=== PATIENT | male | born 1960 | race Hispanic/Latino ===

== ENCOUNTER 2019-01-19 21:49 | Emergency (ER) | payer OTHER ==
--- NOTE | 2019-01-19 23:41 | EDPHYS ---
Physician Documentation [facility] Name: Geovanny Kenney Age: 58 yrs Sex: Male : 1960 Arrival Date: 01/19/2019 Time: 21:50 Bed 15 Private MD: ED Physician Michael Retana HPI: 01/19 23:33 This 58 yrs old Male presents to ER via Ambulatory with complaints of Needle drake Broke off In buttcheek. 23:33 possible needle in buttock. Onset: The symptoms/episode began/occurred just prior to drake arrival. Severity of symptoms: At their worst the symptoms were mild in the emergency department the symptoms are unchanged. The patient has not experienced similar symptoms in the past. Historical: - Allergies: 22:05 No Known Allergies; ak1 - Home Meds: 22:05 metformin 1,000 mg Oral tab 2 times per day [Active]; lisinopril 2.5 mg Oral tab ak1 [Active]; - PMHx: 22:05 Hypertension; Diabetes - NIDDM; ak1 - Immunization history:: Adult Immunizations unknown. - Social history:: Smoking status: Patient/guardian denies using tobacco. - Ebola Screening: : No symptoms or risks identified at this time. - Family history:: not pertinent. ROS: 23:33 Constitutional: Negative for fever, chills, and weight loss, Eyes: Negative for injury, drake pain, redness, and discharge, ENT: Negative for injury, pain, and discharge, Neck: Negative for injury, pain, and swelling, Cardiovascular: Negative for chest pain, palpitations, and edema, Respiratory: Negative for shortness of breath, cough, wheezing, and pleuritic chest pain, Abdomen/GI: Negative for abdominal pain, nausea, vomiting, diarrhea, and constipation, Back: Negative for injury and pain, : Negative for injury, bleeding, discharge, and swelling, Skin: Negative for injury, rash, and discoloration, Neuro: Negative for headache, weakness, numbness, tingling, and seizure, Psych: Negative for depression, anxiety, suicide ideation, homicidal ideation, and hallucinations, Allergy/Immunology: Negative for hives, rash, and allergies, Endocrine: Negative for neck swelling, polydipsia, polyuria, polyphagia, and marked weight changes, Hematologic/Lymphatic: Negative for swollen nodes, abnormal bleeding, and unusual bruising. 23:33 MS/extremity: Positive for pain, of the buttocks. Exam: 23:33 Constitutional: This is a well developed, well nourished patient who is awake, alert, drake and in no acute distress. Head/Face: Normocephalic, atraumatic. Eyes: Pupils equal round and reactive to light, extra-ocular motions intact. Lids and lashes normal. Conjunctiva and sclera are non-icteric and not injected. Cornea within normal limits. Periorbital areas with no swelling, redness, or edema. ENT: Nares patent. No nasal discharge, no septal abnormalities noted. Tympanic membranes are normal and external auditory canals are clear. Oropharynx with no redness, swelling, or masses, exudates, or evidence of obstruction, uvula midline. Mucous membranes moist. Neck: Trachea midline, no thyromegaly or masses palpated, and no cervical lymphadenopathy. Supple, full range of motion without nuchal rigidity, or vertebral point tenderness. No Meningismus. Chest/axilla: Normal chest wall appearance and motion. Nontender with no deformity. No lesions are appreciated. Cardiovascular: Regular rate and rhythm with a normal S1 and S2. No gallops, murmurs, or rubs. Normal PMI, no JVD. No pulse deficits. Respiratory: Lungs have equal breath sounds bilaterally, clear to auscultation and percussion. No rales, rhonchi or wheezes noted. No increased work of breathing, no retractions or nasal flaring. Abdomen/GI: Soft, non-tender, with normal bowel sounds. No distension or tympany. No guarding or rebound. No evidence of tenderness throughout. Back: No spinal tenderness. No costovertebral tenderness. Full range of motion. Male : Normal genitalia with no discharge or lesions. Skin: Warm, dry with normal turgor. Normal color with no rashes, no lesions, and no evidence of cellulitis. MS/ Extremity: Pulses equal, no cyanosis. Neurovascular intact. Full, normal range of motion. Neuro: Awake and alert, GCS 15, oriented to person, place, time, and situation. Cranial nerves II-XII grossly intact. Motor strength 5/5 in all extremities. Sensory grossly intact. Cerebellar exam normal. Normal gait. Psych: Awake, alert, with orientation to person, place and time. Behavior, mood, and affect are within normal limits. Vital Signs: 22:03 BP 156 / 83; Pulse 79; Resp 18; Temp 98; Pulse Ox 97% on R/A; Weight 92.99 kg (R); ak1 Height 5 ft. 6 in. (167.64 cm) (R); Pain 2/10; 23:46 BP 162 / 81; Pulse 72; Resp 18; Temp 98.1; Pulse Ox 98% on R/A; Pain 1/10; ak1 22:03 Body Mass Index 33.09 (92.99 kg, 167.64 cm) ak1 MDM: 22:42 Patient medically screened. [facility] 23:33 Data reviewed: vital signs, nurses notes, radiologic studies, plain films. [facility] 01/19 21:59 Order name: Pelvis XRAY snw Administered Medications: No medications were administered Disposition: 01/19/19 23:38 Discharged to Home. Impression: Puncture wound without foreign body of left buttock. - Condition is Stable. - Discharge Instructions: Puncture Wound, Puncture Wound, [id number]. - Medication Reconciliation Form, Thank You Letter, Antibiotic Education, Prescription Opioid Use form. - Follow up: Private Physician; When: 2 - 3 days; Reason: Recheck today's complaints, Continuance of care, Re-evaluation by your physician. Follow up: Richy Fernandez MD; When: 1 - 2 days; Reason: Recheck today's complaints, Continuance of care, Re-evaluation by your physician. - Problem is new. - Symptoms have improved. Signatures: Dispatcher [employer] EDMichael Krishnamurthy MD MD cha Krenek, Amber, RN RN ak1 Corrections: (The following items were deleted from the chart) 23:47 23:38 01/19/2019 23:38 Discharged to Home. Impression: Puncture wound without foreign ak1 body of left buttock. Condition is Stable. Forms are Medication Reconciliation Form, Thank You Letter, Antibiotic Education, Prescription Opioid Use. Follow up: Private Physician; When: 2 - 3 days; Reason: Recheck today's complaints, Continuance of care, Re-evaluation by your physician. Follow up: Ricyh Fernandez; When: 1 - 2 days; Reason: Recheck today's complaints, Continuance of care, Re-evaluation by your physician. Problem is new. Symptoms have improved. drake
--- NOTE | 2019-01-19 23:41 | ER ---
Nurse's Notes [facility] Name: Geovanny Kenney Age: 58 yrs Sex: Male : 1960 Arrival Date: 01/19/2019 Time: 21:50 Bed 15 Private MD: Diagnosis: Puncture wound without foreign body of left buttock Presentation: 01/19 22:03 Presenting complaint: Patient states: at 0815 IM to left hip/buttock area given ak1 testosterone. pt stated he took a "pain pill" earlier. Transition of care: patient was not received from another setting of care. Onset of symptoms was January 19, 2019. Risk Assessment: Do you want to hurt yourself or someone else? Patient reports no desire to harm self or others. Initial Sepsis Screen: Does the patient meet any 2 criteria? No. Patient's initial sepsis screen is negative. Does the patient have a suspected source of infection? No. Patient's initial sepsis screen is negative. Care prior to arrival: None. 22:03 Method Of Arrival: Ambulatory ak1 22:03 Acuity: VERA 4 ak1 Triage Assessment: 22:05 General: Appears in no apparent distress. Behavior is calm, cooperative. ak1 Historical: - Allergies: 22:05 No Known Allergies; ak1 - Home Meds: 22:05 metformin 1,000 mg Oral tab 2 times per day [Active]; lisinopril 2.5 mg Oral tab ak1 [Active]; - PMHx: 22:05 Hypertension; Diabetes - NIDDM; ak1 - Immunization history:: Adult Immunizations unknown. - Social history:: Smoking status: Patient/guardian denies using tobacco. - Ebola Screening: : No symptoms or risks identified at this time. - Family history:: not pertinent. Screenin:24 Abuse screen: Denies threats or abuse. Denies injuries from another. Nutritional lp1 screening: No deficits noted. Tuberculosis screening: No symptoms or risk factors identified. Fall Risk None identified. Assessment: 22:21 General: Appears in no apparent distress. Behavior is appropriate for age. Pain: lp1 Complains of pain in left gluteus satya. Neuro: Level of Consciousness is awake, alert, obeys commands. Cardiovascular: Patient's skin is warm and dry. Respiratory: Respiratory effort is even, unlabored. GI: No signs and/or symptoms were reported involving the gastrointestinal system. : No signs and/or symptoms were reported regarding the genitourinary system. EENT: No signs and/or symptoms were reported regarding the EENT system. Derm: Skin is pink, warm \\T\\ dry. Musculoskeletal: No deficits noted. 23:46 Reassessment: Patient appears in no apparent distress at this time. No changes from ak1 previously documented assessment. Patient and/or family updated on plan of care and expected duration. Pain level reassessed. Patient is alert, oriented x 3, equal unlabored respirations, skin warm/dry/pink. Vital Signs: 22:03 BP 156 / 83; Pulse 79; Resp 18; Temp 98; Pulse Ox 97% on R/A; Weight 92.99 kg (R); ak1 Height 5 ft. 6 in. (167.64 cm) (R); Pain 2/10; 23:46 BP 162 / 81; Pulse 72; Resp 18; Temp 98.1; Pulse Ox 98% on R/A; Pain 1/10; ak1 22:03 Body Mass Index 33.09 (92.99 kg, 167.64 cm) ak1 ED Course: 21:50 Patient arrived in ED. ds1 22:03 Arm band placed on Patient placed in an exam room, on a stretcher, Patient notified of ak1 wait time. 22:05 Triage completed. ak1 22:21 Toya Dobbins, RN is Primary Nurse. lp1 22:24 Patient has correct armband on for positive identification. Placed in gown. lp1 22:36 Pelvis XRAY In Process Unspecified. EDMA 22:42 Michael Retana MD is Attending Physician. [facility] 23:36 Richy Fernandez MD is Referral Physician. [facility] 23:46 No provider procedures requiring assistance completed. Patient did not have IV access ak1 during this emergency room visit. Administered Medications: No medications were administered Outcome: 23:38 Discharge ordered by . [facility] 23:47 Discharged to home ambulatory, with family. ak1 23:47 Condition: stable 23:47 Discharge instructions given to patient, family, Instructed on discharge instructions, follow up and referral plans. Demonstrated understanding of instructions, follow-up care. 23:47 Patient left the ED. ak1 Signatures: Dispatcher [employer] EDMA Michael Retana MD MD cha Sanford, Demi ds1 Toya Dobbins, RN RN lp1 Carmen Steel, RN RN ak1
[2019-01-20 01:28] VITALS: BP 162/81; TEMP 98.1; O2SAT 98
--- NOTE | 2019-01-20 07:27 | RAD REPORT ---
EXAM DESCRIPTION: RAD - Pelvis - 01/19/2019 10:36 pm CLINICAL HISTORY: Pain, possible needle foreign body, BB marker placed at injection site COMPARISON: None. TECHNIQUE: AP imaging of the pelvis was obtained. FINDINGS: Frontal and lateral projections of the pelvis were obtained for possible retained needle. A BB marker was placed the skin surface. The BB marker is identifiable. No foreign body is seen. No suspicious or acute bone or soft tissue finding identified. IMPRESSION: No foreign body.
== END 2019-01-19 23:47 | disposition home or self-care (01) ==
LOC: ER 21:49
DX: S31.823A Puncture wound without foreign body of left buttock, initial encounter (principal); I10 Essential (primary) hypertension; E11.9 Type 2 diabetes mellitus without complications
CPT/HCPCS: 72170; 99283

== ENCOUNTER 2019-06-06 09:39 | Inpatient (IN) | payer OTHER ==
--- OUTSIDE RECORDS SUMMARY | 2019-06-06 09:41 | XMS REPORT ---
:1960 Author Organization [facility] Address [address] [place] [address] Dr. Rabago [address] [place] [id number] Care Team Providers Name Role Phone Unavailable Unavailable Unavailable Problems This patient has no known problems. Allergies, Adverse Reactions, Alerts This patient has no known allergies or adverse reactions. Medications This patient has no known medications.
--- OUTSIDE RECORDS SUMMARY | 2019-06-06 09:44 | XMS REPORT | Summary of Care ---
:1960 Author Organization [facility] - Health Address [address] [place] [address] Care Team Providers Name Role Phone Wilfredo Perdomo Primary Care Provider Encounter Details Date Type Department Care Team Description 06/01/2019 Orders Only [facility] Doctor Unassigned, No [address] [facility] [place] [address] [address] [place] [address] Allergies No Known Allergiesdocumented as of this encounter (statuses as of 06/03/2019) Medications Medication Sig Dispensed Refills Start Date End Date Status amLODIPine 10 mg Take 1 tablet by 90 tablet 1 12/08/2017 Active tabletIndications: mouth daily. Essential hypertension blood sugar diagnostic Use as directed, 300 Strip 1 12/08/2017 Active (ACCU-CHEK GUIDE) strip TID, DX:E11.9 Lancets (ACCU-CHEK Use as directed, 300 Each 1 12/08/2017 Active FASTCLIX) Misc TID, DX:E11.9 hydroCHLOROthiazide 25 Take 1 tablet by 30 tablet 3 01/11/2018 Active mg tablet mouth daily. glyBURIDE 5 mg Take 2 tablets by 360 tablet 3 03/15/2018 Active tabletIndications: Type mouth 2 (two) 2 diabetes mellitus times daily with without complication, meals. without long-term current use of insulin pioglitazone 30 mg Take 1 tablet by 30 tablet 0 08/10/2018 Active tabletIndications: Type mouth daily. 2 diabetes mellitus without complication, without long-term current use of insulin lisinopril 40 mg Take 1 tablet by 90 tablet 3 09/24/2018 Active tabletIndications: mouth daily. Essential hypertension rosuvastatin 20 mg Take 0.5 tablets 90 tablet 1 11/30/2018 Active tabletIndications: by mouth daily. Dyslipidemia syringe-needle,safety,di Use as directed 10 Syringe 2 11/30/2018 Active sp unt 1.5 mL 22 gauge x with testosterone 1 04/28" SyrgIndications: injection once Hypogonadism in male [id number] gabapentin 100 mg Take 1 capsule by 90 capsule 1 11/30/2018 Active capsuleIndications: mouth 3 (three) Neuropathy times daily. METFORMIN ER 500 mg 24 TAKE 2 TABLETS BY 360 tablet 1 03/28/2019 Active hr tabletIndications: MOUTH TWICE DAILY Type 2 diabetes mellitus WITH MEALS without complication, without long-term current use of insulin tamsulosin 0.4 mg 24 hr Take 1 capsule by 30 capsule 6 03/30/2019 Active capsuleIndications: mouth at bedtime. Benign prostatic hyperplasia, unspecified whether lower urinary tract symptoms present dulaglutide (TRULICITY) inject 1.5 mg 12 Syringe 0 06/01/2019 Active 1.5 mg/0.5 mL under the skin PnIjIndications: Type 2 weekly. diabetes mellitus without complication, without long-term current use of insulin Hospital, Clinic, or Other Ordered Dose Route Frequency Start Date End Date Status Facility Administered Medication testosterone cypionate 200 mg IM [id number] 05/05/2019 06/16/2019 Active (DEPO-TESTOSTERONE) injection 200 mgIndications: Male hypogonadism, Testicular hypofunction documented as of this encounter (statuses as of 06/03/2019) Active Problems Problem Noted Date KAYLA (obstructive sleep apnea) 03/15/2018 Type 2 diabetes mellitus without complication, without long-term current 12/08 use of insulin Dyslipidemia 12/08/2017 Essential hypertension 12/08/2017 Hypogonadism in male 12/08/2017 documented as of this encounter (statuses as of 06/03/2019) Immunizations Name Administration Dates Next Due HEPLISAV HEP B, ADULT 2 DOSE, IM 01/24/2019 Influenza Virus Vaccine 01/24/2019 documented as of this encounter Social History Tobacco Use Types Packs/Day Years Used Date Former Smoker 0.25 30 Quit: 11/26/1987 Smokeless Tobacco: Never Used Comments: Smokes Cigars on occasion Alcohol Use Drinks/Week oz/Week Comments No Sex Assigned at Date Recorded Not on file Job Start Date Occupation Industry Not on file Not on file Not on file Travel History Travel Start Travel End No recent travel history available. documented as of this encounter Last Filed Vital Signs Not on filedocumented in this encounter Plan of Treatment Date Type Specialty Care Team Description 06/17/2019 Office Visit Urology Jamal Gaxiola MD [address] [place] [address]. [place] [id number] 08/31/2019 Office Visit Endocrinology Diabetes & Kevin Mayes MD Metabolism [address] [place] [address] [phone] Health Maintenance Due Date Last Done Comments HEPATITIS C (HCV) SCREEN 1960 PNEUMOCOCCAL 0-64 YEARS COMBINED 10/08/1967 SERIES (1 of 1 - PPSV23) EYE EXAM 10/08/1971 URINE MICROALBUMIN 10/08/1971 DTaP,Tdap,and Td Vaccines (1 - 1972 Tdap) COLONOSCOPY 10/08/2011 Zoster Recombinant Vaccine 10/08/2011 (SHINGRIX) (1 of 2) CREATININE (SERUM) 12/04/2018 12/04/2017 LDL-C 12/22/2018 12/22/2017, 12/08/2017 FOOT EXAM 03/15/2019 03/15/2018, 03/15/2018, 12/08/2017, Additional history exists HgA1C 06/02/2019 11/30/2018, 03/15/2018, 12/08/2017 INFLUENZA VACCINE Completed 01/24/2019 documented as of this encounter Procedures Procedure Name Priority Date/Time Associated Diagnosis Comments AGREEMENTS AUTHORIZATIONS Routine 06/01/2019 12:01 AM AND [facility] CONSULTANT ASSIGNMENTS (FORM 2001) documented in this encounter Results Not on filedocumented in this encounter Insurance Payer Benefit Plan / Group Subscriber ID Effective Dates Phone Address Type AETNA AETNA HMO [id number] 2018-Present HMO documented as of this encounter
[2019-06-06 10:04] LABS: Basophils % 0.5 % (0-1.3); Hematocrit 25.2 % (39.6-49.0); Lymphocytes % 18.4 % (15.3-44.8); MPV 8.4 fL (7.6-11.3); RBC Red Blood Cell Count 3.23 M/uL (4.33-5.43)
[2019-06-06 10:12] LABS: Protime INR 1.04
[2019-06-06 10:31] LABS: Albumin 3.7 g/dL (3.4-5.0); Bilirubin Direct 0.1 mg/dL (0-0.2); Bilirubin Total 0.5 mg/dL (0.2-1.0); Potassium 4.6 mmol/L (3.5-5.1); Protein, Total 6.8 g/dL (6.4-8.2); Troponin (Emerg Dept Use Only) 0.03 ng/mL (0.0-0.045)
--- NOTE | 2019-06-06 10:36 | EDPHYS ---
Physician Documentation [facility] Name: Geovanny Kenney Age: 58 yrs Sex: Male : 1960 Arrival Date: 06/06/2019 Time: 09:41 Bed 4 Private MD: ED Physician Michael Retana HPI: 06/06 10:16 This 58 yrs old Male presents to ER via Wheelchair with complaints of High drake Blood Pressure, Palpitations. 10:16 The patient has elevated blood pressure and discovered this at home. Onset: The drake symptoms/episode began/occurred 2 day(s) ago. Modifying factors: The symptoms are aggravated by activity, The symptoms are alleviated by remaining still. Associated signs and symptoms: The patient has no apparent associated signs or symptoms. Severity of symptoms: At its worst the blood pressure was moderate, in the emergency department the blood pressure is unchanged. The patient has not experienced similar symptoms in the past. Historical: - Allergies: 09:52 No Known Allergies; sg - Home Meds: 09:52 lisinopril 2.5 mg Oral tab [Active]; metformin 1,000 mg Oral tab 2 times per day sg [Active]; Glyburide Oral [Active]; 09:56 Trulicity subcutaneous subcutaneous [Active]; sg - PMHx: 09:52 Diabetes - NIDDM; Hypertension; High Cholesterol; sg - PSHx: 09:52 eye sx; sg - Immunization history:: Adult Immunizations up to date. - Coronavirus screen:: The patient has NOT traveled to [place], [place], or [place] in the past 14 days. The patient has NOT had contact with known/suspected case of Coronavirus?. - Social history:: Smoking status: Patient denies any tobacco usage or history of. - Ebola Screening: : Patient negative for fever greater than or equal to 101.5 degrees Fahrenheit, and additional compatible Ebola Virus Disease symptoms Patient denies exposure to infectious person Patient denies travel to an Ebola-affected area in the 21 days before illness onset No symptoms or risks identified at this time. ROS: 10:16 Constitutional: Negative for fever, chills, and weight loss, Eyes: Negative for injury, drake pain, redness, and discharge, ENT: Negative for injury, pain, and discharge, Neck: Negative for injury, pain, and swelling, Cardiovascular: Negative for chest pain, palpitations, and edema, Respiratory: Negative for shortness of breath, cough, wheezing, and pleuritic chest pain, Abdomen/GI: Negative for abdominal pain, nausea, vomiting, diarrhea, and constipation, Back: Negative for injury and pain, : Negative for injury, bleeding, discharge, and swelling, MS/Extremity: Negative for injury and deformity, Skin: Negative for injury, rash, and discoloration, Psych: Negative for depression, anxiety, suicide ideation, homicidal ideation, and hallucinations, Allergy/Immunology: Negative for hives, rash, and allergies, Endocrine: Negative for neck swelling, polydipsia, polyuria, polyphagia, and marked weight changes, Hematologic/Lymphatic: Negative for swollen nodes, abnormal bleeding, and unusual bruising. 10:16 Neuro: Positive for dizziness, weakness. Exam: 10:16 Constitutional: This is a well developed, well nourished patient who is awake, alert, drake and in no acute distress. Head/Face: Normocephalic, atraumatic. Eyes: Pupils equal round and reactive to light, extra-ocular motions intact. Lids and lashes normal. Conjunctiva and sclera are non-icteric and not injected. Cornea within normal limits. Periorbital areas with no swelling, redness, or edema. ENT: Nares patent. No nasal discharge, no septal abnormalities noted. Tympanic membranes are normal and external auditory canals are clear. Oropharynx with no redness, swelling, or masses, exudates, or evidence of obstruction, uvula midline. Mucous membranes moist. Neck: Trachea midline, no thyromegaly or masses palpated, and no cervical lymphadenopathy. Supple, full range of motion without nuchal rigidity, or vertebral point tenderness. No Meningismus. Chest/axilla: Normal chest wall appearance and motion. Nontender with no deformity. No lesions are appreciated. Cardiovascular: Regular rate and rhythm with a normal S1 and S2. No gallops, murmurs, or rubs. Normal PMI, no JVD. No pulse deficits. Respiratory: Lungs have equal breath sounds bilaterally, clear to auscultation and percussion. No rales, rhonchi or wheezes noted. No increased work of breathing, no retractions or nasal flaring. Abdomen/GI: Soft, non-tender, with normal bowel sounds. No distension or tympany. No guarding or rebound. No evidence of tenderness throughout. Back: No spinal tenderness. No costovertebral tenderness. Full range of motion. Male : Normal genitalia with no discharge or lesions. MS/ Extremity: Pulses equal, no cyanosis. Neurovascular intact. Full, normal range of motion. Neuro: Awake and alert, GCS 15, oriented to person, place, time, and situation. Cranial nerves II-XII grossly intact. Motor strength 5/5 in all extremities. Sensory grossly intact. Cerebellar exam normal. Normal gait. Psych: Awake, alert, with orientation to person, place and time. Behavior, mood, and affect are within normal limits. 10:16 Skin: Appearance: Color: pale, Moisture: normal moisture, petechiae, not noted, ecchymosis, not noted. 10:30 Abdomen/GI: Inspection: abdomen appears normal, Bowel sounds: normal, Palpation: [facility] abdomen is soft and non-tender, in all quadrants, Rectal exam: is unremarkable, rectal tone normal, Stool: guaiac positive, Liver: no appreciated palpable abnormalities, Hernia: not appreciated. Vital Signs: 09:52 BP 194 / 77; Pulse 93; Resp 18; Temp 97.9; Pulse Ox 100% on R/A; Weight 92.99 kg; sg Height 5 ft. 6 in. (167.64 cm); 10:04 BP 160 / 62; Pulse 81; Resp 16 S; Pulse Ox 98% on R/A; Pain 0/10; jl7 11:14 BP 175 / 86; Pulse 80; Resp 19 S; Pulse Ox 98% on R/A; jl7 09:52 Body Mass Index 33.09 (92.99 kg, 167.64 cm) MDM: 09:47 Patient medically screened. [facility] 10:19 Data reviewed: vital signs, nurses notes, lab test result(s), EKG, radiologic studies, [facility] plain films. 06/06 09:51 Order name: Basic Metabolic Panel ms 06/06 09:51 Order name: CBC with Diff ms 06/06 09:51 Order name: LFT's ms 06/06 09:51 Order name: Magnesium ms 06/06 09:51 Order name: NT PRO-BNP ms 06/06 09:51 Order name: PT-INR ms 06/06 09:51 Order name: Troponin (emerg Dept Use Only) ms 06/06 10:06 Order name: CBC with Automated Diff; Complete Time: 10:14 EDMS 06/06 10:14 Order name: Protime (+INR); Complete Time: 10:14 EDMS 06/06 10:15 Order name: Type And Screen drake 06/06 10:15 Order name: Lipase drake 06/06 10:31 Order name: Occult Blood--Ancillary bd 06/06 10:31 Order name: Basic Metabolic Panel; Complete Time: 10:36 EDMS 06/06 10:31 Order name: Liver (Hepatic) Function; Complete Time: 10:36 EDMS 06/06 09:51 Order name: XRAY Chest (1 view) ms 06/06 09:51 Order name: EKG; Complete Time: 09:52 ms 06/06 10:31 Order name: Troponin (Emerg Dept Use Only); Complete Time: 10:36 EDMS 06/06 10:32 Order name: NT PRO-BNP; Complete Time: 10:36 EDMS 06/06 10:32 Order name: Magnesium; Complete Time: 10:36 EDMS 06/06 10:55 Order name: Lipase EDMS 06/06 10:59 Order name: RAD EDMS 06/06 11:33 Order name: Type and Screen EDMS 06/06 11:47 Order name: ABO/RH no charge EDMS 06/06 13:12 Order name: Occult Blood--Ancillary EDMS 06/06 13:25 Order name: Thyroid Stimulating Hormone EDMS 06/06 09:51 Order name: Cardiac monitoring; Complete Time: 09:54 ms 06/06 09:51 Order name: EKG - Nurse/Tech; Complete Time: 09:54 ms 06/06 09:51 Order name: IV Saline Lock; Complete Time: 09:54 ms 06/06 09:51 Order name: Labs collected and sent; Complete Time: 09:54 ms 06/06 09:51 Order name: O2 Per Protocol; Complete Time: 09:54 ms 06/06 09:51 Order name: O2 Sat Monitoring; Complete Time: 09:54 ms 06/06 11:01 Order name: Labs - recollect needed: recollect abo rh, no charge; Complete Time: 11:18 bd 06/06 13:01 Order name: NPO; Complete Time: 13:10 sg Administered Medications: 10:37 Drug: Pepcid 20 mg Route: IVP; Site: right forearm; jl7 11:13 Follow up: Response: No adverse reaction jl7 10:37 Drug: ProTONIX 40 mg Route: IVP; Site: right forearm; jl7 11:13 Follow up: Response: No adverse reaction 13:01 Drug: ProTONIX 8 mg/hr Route: IV; Rate: 25 ml/hr; Site: right femoral; sg 13:10 Follow up: IV Status: Infusion continued upon admission 7 13:23 CANCELLED (wrong order): Insulin Regular Human 10 units IVP once 7 13:23 Drug: Insulin Regular Human 10 units {Co-Signature: em (Nito Ballesteros RN).} Route: Sub-Q; 7 Site: left upper abdomen; 13:34 Follow up: Response: administered prior to transfer to the floor jl7 Disposition: 06/06/19 10:35 Hospitalization ordered by Sapphire Luu for Inpatient Admission. Preliminary diagnosis are Gastrointestinal hemorrhage, unspecified, Anemia, unspecified, Chest pain, unspecified, Weakness, Unspecified kidney failure, Type 2 diabetes mellitus. - Bed requested for Telemetry/MedSurg (Inpatient). - Status is Inpatient Admission. jl7 - Condition is Fair. - Problem is new. - Symptoms have improved. Signatures: Dispatcher [employer] EDMS Kelly White Steven, Michael Williamson RN, MD MD cha Villarreal, Maria ms Leal, Jahala, SHELIA BASS jl7 Nito dorantes Corrections: (The following items were deleted from the chart) 10:36 10:35 Hospitalization Ordered by Zohreh Alford MD for Inpatient Admission. Preliminary drake diagnosis is Gastrointestinal hemorrhage, unspecified; Anemia, unspecified; Chest pain, unspecified; Weakness. Bed requested for Telemetry/MedSurg (Inpatient). Status is Inpatient Admission. Condition is Fair. Problem is new. Symptoms have improved. drake 10:40 10:36 06/06/2019 10:35 Hospitalization Ordered by Zohreh Alford MD for Inpatient drake Admission. Preliminary diagnosis is Gastrointestinal hemorrhage, unspecified; Anemia, unspecified; Chest pain, unspecified; Weakness; Unspecified kidney failure. Bed requested for Telemetry/MedSurg (Inpatient). Status is Inpatient Admission. Condition is Fair. Problem is new. Symptoms have improved. drake 10:41 10:40 06/06/2019 10:35 Hospitalization Ordered by Zohreh Alford MD for Inpatient drake Admission. Preliminary diagnosis is Gastrointestinal hemorrhage, unspecified; Anemia, unspecified; Chest pain, unspecified; Weakness; Unspecified kidney failure; Type 2 diabetes mellitus. Bed requested for Telemetry/MedSurg (Inpatient). Status is Inpatient Admission. Condition is Fair. Problem is new. Symptoms have improved. drake 12:56 10:41 06/06/2019 10:35 Hospitalization Ordered by Sapphire Luu MD for Inpatient Admission. bd Preliminary diagnosis is Gastrointestinal hemorrhage, unspecified; Anemia, unspecified; Chest pain, unspecified; Weakness; Unspecified kidney failure; Type 2 diabetes mellitus. Bed requested for Telemetry/MedSurg (Inpatient). Status is Inpatient Admission. Condition is Fair. Problem is new. Symptoms have improved. drake 13:23 13:22 Insulin Regular Human 10 units IVP once ordered. jl7 jl7 13:27 12:56 06/06/2019 10:35 Hospitalization Ordered by Sapphire Luu MD for Inpatient Admission. jl7 Preliminary diagnosis is Gastrointestinal hemorrhage, unspecified; Anemia, unspecified; Chest pain, unspecified; Weakness; Unspecified kidney failure; Type 2 diabetes mellitus. Bed requested for Telemetry/MedSurg (Inpatient). Status is Inpatient Admission. Condition is Fair. Problem is new. Symptoms have improved. bd
--- NOTE | 2019-06-06 10:36 | ER ---
Nurse's Notes [facility] Name: Geovanny Kenney Age: 58 yrs Sex: Male : 1960 Arrival Date: 06/06/2019 Time: 09:41 Bed 4 Private MD: Diagnosis: Gastrointestinal hemorrhage, unspecified;Anemia, unspecified;Chest pain, unspecified;Weakness;Unspecified kidney failure;Type 2 diabetes mellitus Presentation: 06/06 09:48 Presenting complaint: Patient states: One week ago, started having shortness of breath sg with weakness. Chest pain began this morning, Left sided with the feeling that heart is racing. Transition of care: patient was not received from another setting of care. Onset of symptoms was June 06, 2019. Risk Assessment: Do you want to hurt yourself or someone else? Patient reports no desire to harm self or others. Initial Sepsis Screen: Does the patient meet any 2 criteria? No. Patient's initial sepsis screen is negative. Does the patient have a suspected source of infection? No. Patient's initial sepsis screen is negative. Care prior to arrival: None. 09:48 Method Of Arrival: Wheelchair sg 09:48 Acuity: VERA 3 sg Historical: - Allergies: 09:52 No Known Allergies; sg - Home Meds: 09:52 lisinopril 2.5 mg Oral tab [Active]; metformin 1,000 mg Oral tab 2 times per day sg [Active]; Glyburide Oral [Active]; 09:56 Trulicity subcutaneous subcutaneous [Active]; sg - PMHx: 09:52 Diabetes - NIDDM; Hypertension; High Cholesterol; sg - PSHx: 09:52 eye sx; sg - Immunization history:: Adult Immunizations up to date. - Coronavirus screen:: The patient has NOT traveled to [place], [place], or [place] in the past 14 days. The patient has NOT had contact with known/suspected case of Coronavirus?. - Social history:: Smoking status: Patient denies any tobacco usage or history of. - Ebola Screening: : Patient negative for fever greater than or equal to 101.5 degrees Fahrenheit, and additional compatible Ebola Virus Disease symptoms Patient denies exposure to infectious person Patient denies travel to an Ebola-affected area in the 21 days before illness onset No symptoms or risks identified at this time. Screenin:49 Abuse screen: Denies threats or abuse. Denies injuries from another. Nutritional jl7 screening: No deficits noted. Tuberculosis screening: No symptoms or risk factors identified. Fall Risk IV access (20 points). Total Lemus Fall Scale indicates No Risk (0-24 pts). Assessment: 09:49 General: Appears in no apparent distress. uncomfortable, Behavior is calm, cooperative, jl7 appropriate for age. Pain: Denies pain. Pain does not radiate. Pain began gradually. Neuro: Level of Consciousness is awake, alert, obeys commands, Oriented to person, place, time, situation. Cardiovascular: Reports palpitations, shortness of breath, Denies chest pain, Heart tones S1 S2 present Patient's skin is warm and dry. Chest pain is denied. Respiratory: Reports shortness of breath at rest Airway is patent Respiratory effort is even, unlabored, Respiratory pattern is regular, symmetrical, Breath sounds are clear bilaterally. GI: No signs and/or symptoms were reported involving the gastrointestinal system. : No signs and/or symptoms were reported regarding the genitourinary system. EENT: No signs and/or symptoms were reported regarding the EENT system. Derm: Skin is pink, warm \T\ dry. Musculoskeletal: No signs and/or symptoms reported regarding the musculoskeletal system. 11:00 Reassessment: Patient appears in no apparent distress at this time. No changes from jl7 previously documented assessment. Patient and/or family updated on plan of care and expected duration. Pain level reassessed. Patient is alert, oriented x 3, equal unlabored respirations, skin warm/dry/pink. 13:02 Reassessment: Patient appears in no apparent distress at this time. pt requesting sg water, pt ordered NPO by , pt updated stated understanding, [facility]. Vital Signs: 09:52 BP 194 / 77; Pulse 93; Resp 18; Temp 97.9; Pulse Ox 100% on R/A; Weight 92.99 kg; sg Height 5 ft. 6 in. (167.64 cm); 10:04 BP 160 / 62; Pulse 81; Resp 16 S; Pulse Ox 98% on R/A; Pain 0/10; jl7 11:14 BP 175 / 86; Pulse 80; Resp 19 S; Pulse Ox 98% on R/A; jl7 09:52 Body Mass Index 33.09 (92.99 kg, 167.64 cm) ED Course: 09:41 Patient arrived in ED. rg4 09:47 Michael Retana MD is Attending Physician. drake 09:48 Initial lab(s) drawn, by md, sent to lab. Inserted saline lock: 20 gauge in right ms forearm, using aseptic technique. Blood collected. 09:49 Triage completed. sg 09:49 Brock Ramos, RN is Primary Nurse. jl7 09:49 Arm band placed on. sg 09:49 Patient has correct armband on for positive identification. Placed in gown. Bed in low jl7 position. Call light in reach. Side rails up X2. patient monitor on. Pulse ox on. NIBP on. 09:49 Patient maintains SpO2 saturation greater than 95% on room air. jl7 09:51 EKG done, by sound engineering technician. reviewed by Michael Retana MD. at1 10:12 X-ray completed. Portable x-ray completed in exam room. Patient tolerated procedure mh1 well. 10:25 PT-INR Sent. jl7 10:25 Troponin (emerg Dept Use Only) Sent. jl7 10:26 NT PRO-BNP Sent. jl7 10:26 Magnesium Sent. jl7 10:26 LFT's Sent. jl7 10:26 CBC with Diff Sent. jl7 10:26 Basic Metabolic Panel Sent. jl7 10:32 Mitch Pacheco DO is Hospitalizing Provider. drake 10:34 Zohreh Alford MD is Hospitalizing Provider. drake 10:41 Sapphire Luu MD is Hospitalizing Provider. drake 11:37 Lipase Sent. jl7 11:37 Type And Screen Sent. jl7 11:37 XRAY Chest (1 view) Sent. jl7 11:37 Occult Blood--Ancillary Sent. jl7 13:26 No provider procedures requiring assistance completed. Patient admitted, IV remains in jl7 place. intact, No redness/swelling at site. Administered Medications: 10:37 Drug: Pepcid 20 mg Route: IVP; Site: right forearm; jl7 11:13 Follow up: Response: No adverse reaction jl7 10:37 Drug: ProTONIX 40 mg Route: IVP; Site: right forearm; jl7 11:13 Follow up: Response: No adverse reaction jl7 13:01 Drug: ProTONIX 8 mg/hr Route: IV; Rate: 25 ml/hr; Site: right femoral; sg 13:10 Follow up: IV Status: Infusion continued upon admission jl7 13:23 CANCELLED (wrong order): Insulin Regular Human 10 units IVP once jl7 13:23 Drug: Insulin Regular Human 10 units {Co-Signature: em (Nito Ballesteros RN).} Route: Sub-Q; jl7 Site: left upper abdomen; 13:34 Follow up: Response: administered prior to transfer to the floor jl7 Outcome: 10:35 Decision to Hospitalize by Provider. drake 13:26 Admitted to Tele accompanied by tech, via wheelchair, room 403, with chart, Report jl7 called to SHELIA Smith 13:26 Condition: stable 13:26 Discharge instructions given to patient. 13:26 Instructed on the need for admit, Demonstrated understanding of instructions. 13:27 Patient left the ED. jl7 Signatures: Boaz Gunderson RN RN Michael Garcias MD MD cha Harvey, Martha 1 Breanna Win ms, Amanda, general merchandise manager EKG Tat1 Olga Jones rg4 Brock Ramos RN RN jl7 Ntio dorantes
[2019-06-06] MEDS ORDERED: FAMOTIDINE 20 MG/2 ML VIAL IV ONE (10:41)
[2019-06-06] MEDS ORDERED: PANTOPRAZOLE 40 MG INJ ONE (10:41)
--- NOTE | 2019-06-06 10:56 | RAD REPORT ---
EXAM DESCRIPTION: Thomas Single View06/06/2019 10:12 am CLINICAL HISTORY: Chest pain COMPARISON: 2017 FINDINGS: The lungs appear clear of acute infiltrate. The heart is normal size IMPRESSION: No acute abnormalities displayed
--- NOTE | 2019-06-06 11:38 | EKG ---
Test Date: 2019-06-06 Test Time: 09:46:59 Cap Machine Operator: BILLY MEASUREMENT RESULTS: Intervals: Rate: 86 KS: 144 QRSD: 78 QT: 340 QTc: 406 [place]: P: 43 KS: 144 QRS: 48 T: 78 INTERPRETIVE STATEMENTS: Normal sinus rhythm Normal ECG Compared to ECG 05/18/2017 15:13:36 No significant changes Electronically Signed On 06-06-19 11:38:09 DIRECTOR OF RETAIL ANALYTICS by Сергей Evangelista
[2019-06-06] MEDS ORDERED: MORPHINE 2 MG/ML SYR IV PRN (12:54)
[2019-06-06] MEDS ORDERED: INSULIN -REGULAR HUMAN 50 UNIT/0.5 ML ML ONE (13:24)
[2019-06-06 13:37] VITALS: BMI 33.0
[2019-06-06] MEDS: HYDRALAZINE HCL 20 MG/ML VIAL IV PRN ×2 (14:02→21:06)
[2019-06-06] MEDS: NA CHLORIDE 0.9% 1,000 ML IV SCH ×2 (14:02→23:46)
[2019-06-06] MEDS: PANTOPRAZOLE INJ 80 MG in NA CHLORIDE 0.9% 250 ML IV SCH ×2 (14:02→23:47)
[2019-06-06] MEDS: INSULIN -REGULAR HUMAN 50 UNIT/0.5 ML ML SQ SCH ×2 (16:03→21:00)
[2019-06-06 16:15] LABS: Urine Appearance CLEAR; Urine Bilirubin NEGATIVE (NEG); Urine Blood NEGATIVE (NEG); Urine Color YELLOW; Urine Glucose 3+ (NEG); Urine Protein 2+ (NEG); Urine Urobilinogen 0.2 mg/dL (0.2-1.0); Urine pH 7.5 (5.0-7.0)
[2019-06-06 16:17] LABS: Urine Microscopic Reflex ORDER UMIC
[2019-06-06 16:32] LABS: Urine Bacteria 20-50 /HPF (NONE SEEN); Urine Culture Reflex Order REFLEXED; Urine Mucus 1+ /HPF (NONE SEEN)
[2019-06-06] MEDS: ALPRAZOLAM 0.25 MG TABLET PO PRN (22:04)
[2019-06-06] MEDS ORDERED: METOPROLOL TARTRATE 5 MG/5 ML INJ IV STA (23:22)
--- NOTE | 2019-06-06 23:28 | CON ---
History Of Present Illness: Mr. Kenney is 58. For 2 weeks, he has been feeling gradual decline, it go t worsen enough that he sought medical attention. Among the numerous things going wrong was chest pa in, also malaise, fatigue, dyspnea on exertion. Since he has been here, his cardiac enzymes are norm al. Laboratory does not show abnormal enzymes or EKG changes, but he has fairly significant anemia, his hemoglobin is 8.2, he is microcytic, and iron levels are low. Iron binding capacity is high. He also has an elevated transferrin. He has never had heart disease before. He has a history of pepti c ulcer disease. He was on medications, no longer on those. He has Naprosyn listed as one of his me dications that he takes routinely. Other medicines are glyburide, Flomax, Crestor, lisinopril, metfo rmin, and Trulicity. He does not smoke, never had myocardial infarction, stroke, heart catheterizati on. Physical Examination: Vital Signs: 5 feet 6 inches, 205 pounds. General: Obese, alert, oriented, pleasant, not in distress. Lungs: Clear. Cardiac: Within normal limits. Extremities: Normal pulses. No cyanosis, clubbing, or edema. Electrocardiogram is normal. Impression: The patient's symptoms are all due to the anemia. I do not think if his hemoglobin drop s anymore, transfusion, based on his symptoms I want to consider doing it now. He clearly needs to stop using Naprosyn, be on proton pump inhibitors. At some point in the future, we could do a stress test, but I do not recommend doing it right now that he has unstable heart disease. ELIZABETH/MODL Voice ID: [id number] Report ID: [id number]
[2019-06-07] MEDS ORDERED: NA CHLORIDE 0.9% 250 ML ONE (01:20)
[2019-06-07] MEDS: HYDRALAZINE HCL 20 MG/ML VIAL IV PRN ×2 (04:56→11:57)
[2019-06-07 05:44] LABS: Albumin 3.1 g/dL (3.4-5.0); Bilirubin Total 0.5 mg/dL (0.2-1.0); Magnesium 1.9 mg/dL (1.8-2.4); Phosphorus 3.2 mg/dL (2.5-4.9); Potassium 4.4 mmol/L (3.5-5.1); Protein, Total 6.1 g/dL (6.4-8.2); Troponin I 0.02 ng/mL (0.0-0.045)
[2019-06-07] MEDS: ACETAMINOPHEN 500 MG TAB PO PRN ×2 (06:39→19:37)
[2019-06-07] MEDS: INSULIN -REGULAR HUMAN 50 UNIT/0.5 ML ML SQ SCH ×4 (07:30→20:25)
[2019-06-07] MEDS ORDERED: HYDRALAZINE HCL 20 MG/ML VIAL IV ONE (07:46)
--- NOTE | 2019-06-07 07:59 | HP ---
Date of Admission: 06/06/2019 Chief Complaint: Elevated blood pressure and palpitation. History Of Present Illness: This patient is a 58-year-old gentleman who presented for elevated blood pressure and palpitation. He has a history of hypertension, type-2 diabetes, hyperlipidemia, and PUD. This patient reported that he underwent EGD and colonoscopy 4-5 years ago and was found to have gastric ulcer. He is not taking antacid at this moment. Patient has been feeling tired and weak for the last week. He noted that his blood pressure has been elevated. His blood pressure is not well controlled. He checked his blood pressure this morning, which was 218/95. He experienced significant palpitation this morning. No chest pain or shortness of breath. Patient complained intermittent mild epigastric pain for the last week. This is associated with some nausea and vomiting. No diarrhea. He did not notice dark stool or black stool. This patient tried to make appointment with his family doctor for palpitation. He could not make appointment today and was directed to the emergency room. In the ED, his blood pressure was high, which is 170/ 85. He did not feel much palpitation. His WBC 11.1 and hemoglobin 8.2. Sodium 139 and potassium 4.6. Creatinine 1.37. Lipase 1115. Guaiac test is positive. He was admitted for anemia and possible GI bleed. Past Medical History: 1. Hypertension. 2. Type-2 diabetes. 3. Hypercholesterolemia. 4. PUD. Allergy: None known allergy. Home Medication: Please see home medication list. Review of Systems: No headache or dizziness. No hearing or vision change. No nasal congestion or sore throat. No cough or shortness of breath. No chest pain. For others please see H and P. Social History: He is not an active smoker. No alcohol use. Physical Examination: General: Patient is awake, alert, oriented x3, in no acute distress. HEENT: PERRLA. EOMI. Atraumatic, normocephalic. Neck: No JVD. Neck is supple. Chest: Clear to auscultation. No respiratory distress. No wheezing. Heart: Normal S1, S2. Regular rhythm and rate. Abdomen: Soft. Mild tenderness in the epigastric region. Bowel sounds present. Extremities: No edema. No cyanosis. Neuro: Patient is awake, alert, oriented x3. Nonfocal. Cranial nerve intact. Psych: No anxiety or depression. Skin: No rashes or eczema. Laboratory Data: WBC 11.1, hemoglobin 8.2, platelets 258. INR 1.04. Sodium 139, potassium 4.6, creatinine 1.39, glucose 325. Liver enzyme within normal range. Lipase 1115. Assessment/plan: This patient is a 58-year-old gentleman who was admitted for palpitation. He was found to have anemia and GI bleed. We started protonix drip, added IV hydralazine for blood pressure. GI was consulted. 1. Anemia. Hemoglobin 8.2, likely due to gastrointestinal bleeding. We will check iron panel in the morning. We will closely monitor hemoglobin. 2. Gastrointestinal bleeding. Patient has a history of peptic ulcer disease. He may have active ulcers. GI was consulted, we started IV Protonix drip. 3. Acute pancreatitis. His lipase 1115. He experienced mild epigastric pain. Patient denied alcohol abuse. We started n.p.o. On IV fluid. On pain medication as needed. 4. Acute renal failure. Creatinine 1.37. This is likely due to nausea and vomiting and possible poor oral intake. I started IV fluids. We will follow up. 5. Uncontrolled hypertension. His blood pressure has been high per patient. I added IV hydralazine as needed. Echo was ordered. Data Entry Manager was consulted for better blood pressure control. 6. Diabetes. We started sliding scale. We will resume home diabetic medication. A1c in the morning. 7. Deep venous thrombosis prophylaxis. Patient contraindicated for heparin or Lovenox use. QT/MODL Voice ID: [id number] KIERAN
--- NOTE | 2019-06-07 08:03 | ECHO ---
HEIGHT: 5 ft 6 in WEIGHT: 205 lb 0 oz DATE OF STUDY: 06/06/[address]: Sapphire Luu MD 2-DIMENSIONAL: YES M.MODE: YES DOPPLER: YES COLOR FLOW: YES TDS: NO PORTABLE: NO DEFINITY: NO BUBBLE STUDY: NO DIAGNOSIS: SHORTNESS OF BREATH CARDIAC HISTORY: CATHERIZATION: NO SURGERY: NO PROSTHETIC VALVE: NO PACEMAKER: NO MEASUREMENTS (cm) DIASTOLIC (NORMALS) SYSTOLIC (NORMALS) IVSd 1.2 (0.6-1.2) LA Diam 4.3 (1.9-4.0) LVEF 57% LVIDd 4.3 (3.5-5.7) LVIDs 3.1 (2.0-3.5) %FS 30% LVPWd 1.5 (0.6-1.2) Ao Diam 2.5 (2.0-3.7) 2 DIMENSIONAL ASSESSMENT: RIGHT ATRIUM: NORMAL LEFT ATRIUM: DILATED RIGHT VENTRICLE: NORMAL LEFT VENTRICLE: NORMAL TRICUSPID VALVE: NORMAL MITRAL VALVE: NORMAL PULMONIC VALVE: NORMAL AORTIC VALVE: NORMAL PERICARDIAL EFFUSION: NONE AORTIC ROOT: NORMAL LEFT VENTRICULAR WALL MOTION: NORMAL DOPPLER/COLOR FLOW: MILD MITRAL REGURGITATION. COMMENTS: NORMAL LEFT VENTRICULAR EJECTION FRACTION. DILATED LEFT ATRIUM. MILD MITRAL REGURGITATION. OTHERWISE NORMAL 2D ECHOCARDIOGRAM WITH DOPPLER. TECHNOLOGIST: Fredo TOBAR
[2019-06-07] MEDS: lisinopriL 20 MG TAB PO SCH ×2 (08:31→09:32)
[2019-06-07] MEDS: PANTOPRAZOLE INJ 80 MG in NA CHLORIDE 0.9% 250 ML IV SCH ×2 (08:31→10:30)
[2019-06-07] MEDS: TAMSULOSIN 0.4 MG SR CAP PO SCH (08:31)
[2019-06-07] MEDS: NA CHLORIDE 0.9% 1,000 ML IV SCH ×2 (08:31→17:02)
[2019-06-07] MEDS ORDERED: METFORMIN ER 500 MG TAB PO SCH (09:00)
[2019-06-07] MEDS: ONDANSETRON 4 MG/2 ML VIAL IV PRN ×2 (09:22→17:02)
[2019-06-07 11:04] LABS: Absolute Lymphocytes (CBC) 1.4 K/uL (0.7-4.9); Basophils % 0.4 % (0-1.3); Hematocrit 30.4 % (39.6-49.0); Lymphocytes % 13.4 % (15.3-44.8); MPV 8.5 fL (7.6-11.3); RBC Red Blood Cell Count 3.84 M/uL (4.33-5.43)
[2019-06-07 11:08] LABS: Protime INR 1.08
[2019-06-07] MEDS ORDERED: NA CHLORIDE 0.9% 1,000 ML ONE (12:10)
[2019-06-07] MEDS ORDERED: LIDOCAINE 1% MPF 30 ML VIAL ONE (12:16)
[2019-06-07] MEDS ORDERED: propofoL 200 MG/20 ML VIAL IV ONE ×2 (12:16)
[2019-06-07] MEDS ORDERED: SODIUM CHLORIDE 0.9% 10ML INJ IV PRN (12:54)
--- NOTE | 2019-06-07 15:42 | P.PN ---
Subjective Date of Service: 06/07/19 Chief Complaint: weakness Subjective: No new changes, Doing well Review of Systems General: Unremarkable Eyes: Unremarkable ENT: Unremarkable Respiratory: Unremarkable Cardiovascular: Unremarkable Gastrointestinal: Abdominal Pain Genitourinary: Unremarkable Musculoskeletal: Unremarkable Neurological: Unremarkable Lymphatics: Unremarkable Physical Examination - Vital Signs Temperature: 97.9 F Blood Pressure: 127/42 Pulse: 93 Respirations: 18 Pulse Ox (%): 97 - Physical Exam General: Alert, In no apparent distress, Oriented x3, Cooperative HEENT: Atraumatic, Normocephalic, PERRLA, Mucous membr. moist/pink Neck: Supple, 2+ carotid pulse no bruit, JVD not distended Respiratory: Clear to auscultation bilaterally, Normal air movement Cardiovascular: No edema, Normal pulses, Regular rate/rhythm, Normal S1 S2, No murmurs Gastrointestinal: Normal bowel sounds, Soft and benign, Non-distended Musculoskeletal: No clubbing, No swelling, No contractures Integumentary: No rashes, No breakdown Neurological: Normal speech, Normal strength at 5/5 x4 extr, Normal tone, Cranial nerves 3-12 intact, Normal reflexes 2+ - Studies Microbiology Data (last 24 hrs): 06/06/19 10:31 Stool Occult Blood - Final Assessment And Plan - Plan Assessment/plan: 1. Anemia. Hemoglobin 8.2->7.4, likely due to gastrointestinal bleeding. He received the 2 units of RBC. Now his hgb is 10.4. 2. Gastrointestinal bleeding. Patient has a history of peptic ulcer disease. GI was consulted and performed EGD. Patient was found to have multiple ulcers w/o active bleeding. Changed IV Protonix gtt to 40 mg b.i.d.. 3. Acute pancreatitis. His lipase 1115. He experienced mild epigastric pain. Patient denied alcohol abuse. We started n.p.o. and IV fluid. On pain medication as needed. Will start clear liquid diet. 4. Acute renal failure. Creatinine 1.37. This is likely due to nausea and vomiting and possible poor oral intake. I started IV fluids. Now creatinine 1. 5. Uncontrolled hypertension. His blood pressure has been high per patient. I added IV hydralazine as needed. Echo demonstrated normal ejection fraction. Editorial Project Manager is on board 6. Diabetes. We started sliding scale. We will resume home diabetic medication. A1c 6.6 7. Deep venous thrombosis prophylaxis. Patient contraindicated for heparin or Lovenox use. He probably can be discharged in AM
[2019-06-07] MEDS: METFORMIN ER 500 MG TAB PO SCH (16:30)
[2019-06-07] MEDS: PANTOPRAZOLE 40 MG INJ IVP SCH (20:25)
[2019-06-07] MEDS: ALPRAZOLAM 0.25 MG TABLET PO PRN (20:33)
[2019-06-07] MEDS ORDERED: ROSUVASTATIN 10 MG TAB PO SCH (21:00)
[2019-06-08] MEDS: NA CHLORIDE 0.9% 1,000 ML IV SCH (02:30)
[2019-06-08 04:25] LABS: Absolute Lymphocytes (CBC) 2.4 K/uL (0.7-4.9); Basophils % 0.3 % (0-1.3); Lymphocytes % 18.9 % (15.3-44.8); MPV 8.5 fL (7.6-11.3); RBC Red Blood Cell Count 3.66 M/uL (4.33-5.43)
[2019-06-08 04:28] LABS: Potassium 4.2 mmol/L (3.5-5.1)
[2019-06-08] MEDS: INSULIN -REGULAR HUMAN 50 UNIT/0.5 ML ML SQ SCH (07:30)
[2019-06-08 08:30] VITALS: TEMP 98.4
[2019-06-08] MEDS: lisinopriL 20 MG TAB PO SCH (08:47)
[2019-06-08] MEDS: METFORMIN ER 500 MG TAB PO SCH (08:47)
[2019-06-08] MEDS: TAMSULOSIN 0.4 MG SR CAP PO SCH (08:48)
[2019-06-08] MEDS: PANTOPRAZOLE 40 MG INJ IVP SCH (08:48)
[2019-06-08 08:58] VITALS: O2SAT 98
[2019-06-08] MEDS: ACETAMINOPHEN 500 MG TAB PO PRN (08:58)
[2019-06-08] MEDS ORDERED: AMLODIPINE 5 MG TAB PO SCH (09:00)
[2019-06-08 10:56] VITALS: BP 140/80
[2019-06-08] MEDS ORDERED: SUCRALFATE 1GM/10ML UCUP FT SCH (11:30)
--- NOTE | 2019-06-09 00:09 | DS ---
Date of Discharge: 06/08/2019 Hospital Course: This patient is a 58-year-old male who presented for elevated blood pressure and palpitations. He has history of hypertension, type 2 diabetes, hyperlipidemia, and PUD. His blood pressure was 218/95 at home. He experienced palpitations. In the ED, his blood pressure was 117/85. His hemoglobin is 8.2. Stool occult test is positive. This patient was admitted for uncontrolled hypertension and gastrointestinal bleeding. Ham Marker was consulted for hypertension. The patient was found to take Naprosyn, which was then discontinued. We started IV Protonix drip. GI was consulted and performed EGD. EGD demonstrated multiple gastric ulcers without active bleeding. The patient received 2 units of RBC and his hemoglobin was elevated to 9.6. No more active bleeding. He did not feel any palpitations. His blood pressure remains high and I added amlodipine. Discussed with GI, who recommended discharge patient. Patient was instructed to follow with GI in 1 month. In the hospital, his echo demonstrated normal ejection fraction. Physical Examination: General: On discharge, patient is awake and alert, in no acute distress. Oriented x3. Vital Signs: Temperature 98.4, pulse is 84. Head: Atraumatic, normocephalic. EOMI. PERRLA. Neck: Supple. No JVD. Chest: Clear to auscultation. No respiratory distress. No wheezing. Heart: Normal S1, S2. Regular rhythm and rate. No murmur. Abdomen: Soft, very minimal tenderness in the epigastric region. Neuro: Patient is awake, alert, and oriented x3. Nonfocal. Extremities: No edema. No cyanosis. Laboratory Data: WBC 12.6, hemoglobin 9.6, platelet 237. Sodium 144, potassium 4.2, creatinine 1.1, lipase 149. Hemoglobin A1c 6.6. Discharge Diagnoses: 1. Anemia. 2. GI bleed. 3. Peptic ulcer disease. 4. Acute pancreatitis. 5. Acute renal failure. 6. Uncontrolled hypertension. 7. Type 2 diabetes. Discharge Medications: 1. Protonix 40 mg b.i.d. 2. Amlodipine 10 mg daily. 3. Carafate 1 g q.i.d. For the rest, please see home medication list. Discharge Instructions: 1. Please follow PCP in 1 week for blood pressure control. 2. Please follow GI in 2-3 weeks. 3. Please call emergency room if having chest pain, shortness of breath, or weakness. Discharge Activity: As tolerated. Discharge Diet: Diabetic diet. I spent at least 30 minutes to discharge patient including home medication prescription, education, physical examination, and discharge summary. QT/MODL Voice ID: [id number] Report ID: [id number] [email or web address]
--- NOTE | 2019-07-18 15:44 | OP ---
Surgeon: Jerry Llamas MD Procedure To Be Performed: Esophagogastroduodenoscopy. Indication For Procedure: Anemia, history of peptic ulcer disease. Plan For Anesthesia: Monitored anesthesia care. Complexity: Average. Technique: After obtaining informed consent from the patient explaining risks and complications whic h include, but are not limited to bleeding, infection, perforation, and anesthesia complication, kyaw ent was placed in left lateral position. Sedation was given. From then on the scope was advanced th rough the mouth and carefully guided up until the 3rd portion of the duodenum. After the completion of examination, scope and equipment were withdrawn and procedure terminated in a safe manner. Findings: Evidence of LA grade B esophagitis in the distal esophagus. In the stomach mild to modera te patchy erythema seen in the body and antrum. Biopsies taken. In the antral pre-pyloric region th ere were 2 crated nonbleeding and clean based gastric ulcers that were visualized. Biopsies were osiel en. Duodenum: The bulb and second and third portion appeared normal. Complications: None. Tolerance To Anesthesia: Excellent. Postoperative Diagnoses: Gastric ulcers, gastritis, esophagitis. Plan: 1.Await pathology results. 2.Follow up in the GI clinic in 2 weeks. 3.Will need EGD in 4 to 6 weeks to ensure healing. 4.Will also need monitoring of CBC. 5.I would also recommend an outpatient colonoscopy. US/MODL Voice ID: [id number] Report ID: [id number]
--- NOTE | 2019-07-18 17:08 | CON ---
Reason For Consultation: Acute anemia, suspected GI bleeding. History Of Presenting Illness: Patient is a 58-year-old gentleman, who has been seen in our clinic i n the past, but is noncompliant to care, came, presented to the ER with elevated blood pressure. He has a history of hypertension, diabetes, dyslipidemia, and history of peptic ulcer disease. Prior hi story of EGD and colonoscopy with a history of peptic ulcer. Said he felt tired and weak. When he p resented to the ER, blood pressure was 218/95, and he was having palpitations, was admitted. Hemoglo bin was found to be 8.2. GI consultation was requested. Guaiac was positive. However, there was no hematemesis, melena, or hematochezia. Past Medical History: As above. Allergies: NO KNOWN DRUG ALLERGIES. Home Medications: Are in the chart. Social History: Denies active toxic habits. Review of Systems: GI/Cardiovascular: As in HPI, otherwise negative. Remainder of 10-point review of systems is negati ve. Physical Examination: Vital Signs: Reviewed. As mentioned above significantly hypertensive, not tachycardic, not tachypne ic. Afebrile. HEENT: Head atraumatic, normocephalic. Pupils equally reactive. Neck: Supple. Chest: Clear to auscultation bilaterally. Abdomen: Soft, nontender, nondistended. Bowel sounds present. Extremities: No pedal edema. PROCESSOR GRAIN: Alert and oriented x3. CVS: S1, S2 plus. Laboratory Data: Reviewed. Hemoglobin as mentioned above, 8.2 and clear. This may be chronic as we ll. Assessment: 58-year-old gentleman with history of peptic ulcer disease with hypertensive urgency and anemia. No evidence of active GI bleed, but possible may have a slow chronic blood loss. Plan: Continue current management to control blood pressure. Start IV Protonix, anemia may be multi factorial, blood-loss related or chronic disease. We will go ahead and schedule him for an upper end oscopy. The risks and complications of the procedure which include but not limited to bleeding, infe ction, perforation, anesthesia complications were discussed. He understands and agrees. US/MODL Voice ID: [id number] Report ID: [id number]
== END 2019-06-08 11:12 | disposition home or self-care (01) | DRG 811 ==
LOC: ER 09:39 → ERHOLD 12:13 → 4TH 13:23
PROVIDERS: ADMIT Internal Medicine; ATTEND Internal Medicine
PROC: 0DB68ZX Excision of Stomach, Via Natural or Artificial Opening Endoscopic, Diagnostic (ICD-10-PCS; principal; 2019-06-07 12:00)
DX: D50.0 Iron deficiency anemia secondary to blood loss (chronic) (principal); K85.90 Acute pancreatitis without necrosis or infection, unspecified; K29.71 Gastritis, unspecified, with bleeding; N17.9 Acute kidney failure, unspecified; I10 Essential (primary) hypertension; E11.9 Type 2 diabetes mellitus without complications; E78.5 Hyperlipidemia, unspecified; K20.8 Other esophagitis; K25.9 Gastric ulcer, unspecified as acute or chronic, without hemorrhage or perforation
CPT/HCPCS: 36415; 71045; 80048; 80053; 80061; 80076; 81003; 81015; 82272; 82947; 83036; 83540; 83690; 83735; 83880; 84100; 84443; 84466; 84484; 85018; 85025; 85610; 85730; 86850; 86900; 86901; 87086; 87088; 88305; 88312; 93005; 93306; 94760; 96372; 99285; C9113; J0360; J2405; J2704; J7030; P9016

== ENCOUNTER 2024-05-13 14:24 | Observation (INO) | payer BC, MEDICARE ==
--- OUTSIDE RECORDS SUMMARY | 2024-05-13 14:37 | XMS REPORT | Continuity of Care Document ---
Author Name Unknown Address [address] [facility] 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 Welder Manufacture Name Role Phone PERDOMOERIN GarciaARIEL Primary Care Physician Unavailab ESSIE Blanchard Attending Clinician Unavailable HECTOR MICHAELS Attending Clinician Unavailable HECTOR MICHAELS Attending Clinician Unavailable JAMAL PARSON Attending Clinician Unavailable BERNADETTE PURI Attending Clinician Unavailable SHAWANDA DUMAS Attending Clinician UnavailJADE Trujillo Attending Clinician Unavailable Jade To MD Attending Clinician [phone] KIRILL KIM Attending Clinician Unavailable Bernadette Isidro Attending Clinician [phone] Shawanda Dumas MD Attending Clinician [phone] Jamal Parson MD Attending Clinician [phone] Hector Michaels MD Attending Clinician [phone] Shawanda Burch MD Attending Clinician [phone] Pob, [facility] Lab Main Attending Clinician UnavailSHAWANDA Duke Attending Clinician Unavailchelsea castellanos Nurse, [facility] Surgery Attending Clinician Villa Koch MD Attending Clinicia n Franky Prabhakar CRNA Attending Clinician [phone] Doctor Unassigned, Aleneva Attending Clinician U nehemias Bowen2, Adc Surg Proc Attending Clinician Unavailab gustavo Mayes MD, Tra Attending Clinician [phone] Allen Wheeler DO Attending Clinician [phone] ALLEN WHEELER Attending Clinician Unavailable Vinny Nguyen MD Attending Clinician [phone] Nurse, Florian Baumann Attending Clinician Unavailable VINNY NGUYEN Attending Clinician Unavailable SOCORRO WILKINSON Attending Clinician Unavailable SOCORRO WILKINSON Attending Clinician Unavailable Socorro Wilkinson MD Attending Clinician [phone] HAILEY PAIZ Attending Clinician Unavailable Ameya AGPCNP, Hailey Attending Clinician [phone] [facility] Lab Main Attending Clinician Unavailchelsea Burch MD, Shawanda Attending Clinician + [phone] Gerber BOOGIE, Tra Attending Clinician +[phone] Lara Palmer RN Attending Clinician + [phone] DONNELL KIM Attending Clinician Unavailable Jose ESQUIVEL, Heather Sales Attending Clinician [phone] Donnell Kim MD Attending Clinician [phone] DEANDRA LUIS Attending Clinician UnavailDEANDRA Barnes Attending Clinician UnavailDeandra Barnes MD Attending Clinician [phone] Doctor Unassigned, Aleneva Attending Clinician U navailable DOUG PUENTE S Attending Clinician Unavailable Kwame BOOGIE, Doug Lugo Attending Clinician [phone] Deandra Luis MD Attending Clinician [phone] Lab, Ang - Db Attending Clinician Unavailable Nwafaustion HUDSON, Bernadette Attending Clinician [phone] George BOOGIE, Michael Rivera Attending Clinician + [phone] HASMUKH HIGGINS Attending Clinician Unavailable Hasmukh Higgins MD Attending Clinician +[phone] Ajit BOOGIE, Fritz Meléndez Attending Clinician [phone] FRITZ ESCOBAR Attending Clinician Unavaila john Bautista, [facility] Phone Attending Clinician Unavail able Josef BASS, Yazmin Santos Attending Clinician Unavailab gustavo To MD, Jade Attending Clinician [phone] ELISHA EM Attending Clinician Unavailab gustavo Em DNP, Elisha Attending Clinician [phone] Kirill Kim MD Attending Clinician [phone] MALGORZATA NGUYEN Attending Clinician Unavailable Nguyen CONCRETE CARPENTER, Malgorzata Attending Clinician [phone] OMAR ALMEIDA Attending Clinician UnavailOmar Valencia MD Attending Clinician +[phone] SELINA_Jose_Adrianna_ Attending Clinician Unavail able SANDRA EASON Attending Clinician Unavailab Sandra Will DO Attending Clinician [phone] TRA MAYES Attending Clinician Unavailable Esha Vieyra Attending Clinician UnavailFLY Long Attending Clinician Unavailable FLY WALTERS Attending Clinician Unavailable ESHA OROURKE Attending Clinician Unavailable Fly Walters DO Attending Clinician [phone] Jamal Parson MD Attending Clinician [phone] Mahsa Perdue MD Attending Clinician [phone] Hernán Tay Attending Clinician [phone] Melissa BASS, Nguyen Dennis Attending Clinician Unavailab HERNÁN Pedraza Attending Clinician UnavailWONG Sy Attending Clinician Unavailable Wong Srinivasan Attending Clinician [phone] PAIGE PIKE A Attending Clinician Unavailable Gramm CONCRETE CARPENTER, Paige A Attending Clinician [phone] Bacilio BASS, Caroline Castellanos Attending Clinician [phone] Genesis Hammonds Attending Clinician [phone] Mariia Jennings MD Attending Clinician [phone] MARIIA JENNINGS Attending Clinician Unavailable Therapy, [facility] Covid Infusion Attending Clinician Unavailable King Low MD Attending Clinician [phone] KING LOW Attending Clinician Unavailable Pcp, Patient Does Not Have A Attending Clinician Lab, Adc Fam Pob I Attending Clinician Unavailab Chelsey Cabezas Attending Clinician [phone] CHELSEY CARD Attending Clinician Unavailable Myrna Ann Attending Clinician +- [phone] PerdomoWilfredo garcia Attending Clinician [phone] Essie Guerra MD Attending Clinician [phone] Only, [facility] Test Attending Clinician Unavailable Nurse, [facility] Surgery Gu Attending Clinician CHANCE Diop Attending Clinician Alessandro morales 2, [facility] Lab Attending Clinician Unavailable Unknown, Attending Attending Clinician Unavailab ESSIE Blanchard Admitting Clinician Unavailable JAMAL PARSON Admitting Clinician Unavailable Eb BOOGIE, Jamal Admitting Clinician [phone] SOCORRO WILKINSON Admitting Clinician Unavailable HECTOR MICHAELS Admitting Clinician Unavailable DONNELL KIM Admitting Clinician Unavailable Donnell Kim MD Admitting Clinician [phone] DOUG PUENTE Admitting Clinician Unavailable DEANDRA LUIS Admitting Clinician UnavailKIRILL Martins Admitting Clinician Unavailable MALGORZATA NGUYEN Admitting Clinician Unavailable OMAR ALMEIDA Admitting Clinician UnavailOmar Valencia MD Admitting Clinician [phone] SELINA_Jose_Lisset Admitting Clinician Unavail able Mariia Jennings MD Admitting Clinician [phone] MARIIA JENNINGS Admitting Clinician Unavailable Essie Guerra MD Admitting Clinician [phone] CHANCE MORALES Admitting Clinician Alessandro morales Payers Payer Name Policy Type Policy Number Effective Date Expirati on Date Source HIM BC BLUE ADVANTAGE O [id number] 2021 00:00:[place] [id number] 2022 00:00:00 AETNA O [id number] 2018 00:00:00 Problems Condition Name Condition Details Condition Category Status Onset Date Resolution Date Last Treatment Date Treating Clinician Comments Source Vertigo Vertigo Disease Active 1-14 00:00: 00 [facility] Benign prostatic hyperplasi a with urinary retention Benign prostatic hyperplasi a with urinary retention Disease Active 2023-04 1-06 00:00: 00 [facility] Generalize d abdominal pain Generalize d abdominal pain Disease Active 10-21 00:00: 00 [facility] Lumbar radiculopa thy Lumbar radiculopa thy Disease Active 2022-04 00:00: 00 [facility] Spinal stenosis of lumbar region with neurogenic claudicati on Spinal stenosis of lumbar region with neurogenic claudicati on Disease Active 2022-04 00:00: 00 [facility] Lumbar disc herniation Lumbar disc herniation Disease Active 2022-04 00:00: 00 [facility] BOWDEN (dyspnea on exertion) BOWDEN (dyspnea on exertion) Disease Active 11-12 00:00: 00 [facility] Elevated lipase Elevated lipase Disease Active 11-12 00:00: 00 [facility] Chest pain, unspecifie d type Chest pain, unspecifie d type Disease Active 11-11 00:00: 00 [facility] Uncontroll ed type 2 diabetes mellitus with hyperglyce franky Uncontroll ed type 2 diabetes mellitus with hyperglyce franky Disease Active 2020-04 2 00:00: 00 [facility] Respirator y failure Respirator y failure Disease Active 07-19 00:00: 00 [facility] Obesity (BMI 30-39.9) Obesity (BMI 30-39.9) Disease Active 07-19 00:00: 00 [facility] History of bleeding ulcers History of bleeding ulcers Disease Active 10-20 00:00: 00 Overview: Formattin g of this note might be different from the original. Added automatic ally from request for surgery [id number] [facility] Encounter for screening colonoscop y Encounter for screening colonoscop y Disease Active 10-20 00:00: 00 Overview: Formattin g of this note might be different from the original. Added automatic ally from request for surgery [id number] [facility] KAYLA (obstructi ve sleep apnea) KAYLA (obstructi ve sleep apnea) Disease Active 2017-04 00:00: 00 [facility] Type 2 diabetes mellitus without complicati on, without long-term current use of insulin Type 2 diabetes mellitus without complicati on, without long-term current use of insulin Disease Active 12-08 00:00: 00 [facility] Dyslipidem ia Dyslipidem ia Disease Active 12-08 00:00: 00 [facility] Essential hypertensi on Essential hypertensi on Disease Active 12-08 00:00: 00 [facility] Hypogonadi sm in male Hypogonadi sm in male Disease Active 12-08 00:00: 00 [facility] Allergies, Adverse Reactions, Alerts Allergy Name Allergy Type Status Severity Reaction(s) Onset Date Inactive Date Treating Clinician Comments Source NO KNOWN ALLERGIE S Drug Class Active [facility] Family History Family Member Diagnosis Comments Start Date Stop Date Sourc e [facility] Natural mother Diabetes Unive [facility] Social History Social Habit Start Date Stop Date Quantity Comments Source Gender identity [facility] Sexual orientation U [facility] History of Social function 2024-05-10 00:00:00 2024-05-10 00:00:00 [facility] Alcoholic beverage intake 2024-05-10 00:00:00 2024-05-10 00:00:00 Current non-drinker of alcohol (finding) [facility] Tobacco use and exposure 2023-10-22 00:00:00 2023-10-22 00:00:[address]eless tobacco [facility] Cigarettes smoked current (pack per day) - Reported 2023-10-22 00:00:00 2023-10-22 00:00:00 [facility] Cigarette pack-years 2023-10-22 00:00:00 2023-10-22 00:00:00 [facility] Tobacco Comment 2023-10-22 00:00:00 2023-10-22 00:00:00 Smokes Cigars on occasionSmokes marijuana recreationally [facility] Alcohol intake 2023-07-14 00:00:00 2023-07-14 00:00:00 Current non-drinker of alcohol (finding) [facility] Exposure to SARS-CoV-2 (event) 2022-03-18 00:00:00 2022-03-28 09:46:[address] [facility] History of tobacco use 1956-11[birth year]25 00:00:00 1987-11-26 00:00:[address] [facility] Sex assigned at 1960 00:00:00 1960 00:00:00 [facility] Smoking Status Start Date Stop Date Source Ex-smoker 2023-10-22 00:00:00 2023-10-22 [facility]00[facility]00 [facility]ations Ordered Medication Name Filled Medication Name Start Date Stop Date Current Medication? Ordering Clinician Indication Dosage Frequency Signature (SIG) Comments Components Source TRESIBA FLEXTOUCH U-100 100 unit/mL (3 mL) InPn 2023-04 00:00: 00 Yes [id number] INJECT 28 UNITS UNDER THE SKIN EVERY NIGHT AT BEDTIME - IF BLOOD SUGAR 80-120 GIVE 14 UNITS & DO NOT TAKE IF BS<80 [facility] blood sugar diagnostic (ONETOUCH VERIO TEST STRIPS) strip 2023-04 00:00: 00 Yes [id number] USE TO TEST BLOOD SUGAR 3 TIMES A DAY DIRECTED [facility] sodium chloride 0.9 % irrigation solution 2023-04 22:19: 00 03-11 16:21 :03 No PRN, Starting on Angela 03/10/24 at 1619, Until 03/11/24 at 1021, Intra-op [facility] sugammadex (BRIDION) injection 2023-04 21:52: 00 03-10 22:05 :51 No IV Push, ONCE INTRA PROCEDURE, Starting on Angela 03/10/24 at 1552, Until Angela 03/10/24 at 1605, Routine, Intra-op [facility] ondansetron (ZOFRAN (PF)) injection 4 mg 2023-04 21:48: 44 03-11 16:21 :04 No 4mg 4 mg, Slow IV Push, Q4HPRN, 1 dose, Starting on Angela 03/10/24 at 1548, Until 03/11/24 at 1021, Administer over 2-5 Minutes, 2 mL, DSU Recovery [facility] HYDROmorphO ne (DILAUDID) injection 0.2 mg 2023-04 21:48: 39 03-11 16:21 :03 No .2mg 0.2 mg, Slow IV Push, Q5MIN PRN, 10 doses, Starting on Angela 03/10/24 at 1548, Until Thu03/11/24 at 1021, Routine, Pain (scale 7-10), PACU, Is this medication approved by a Faculty level provider? Yes, grocery team member approving Restricted medication : PACU RECOVERY [facility] FENTanyl (PF) (SUBLIMAZE) injection 25 mcg 2023-04 21:48: 39 03-11 16:21 :03 No 25ug 25 mcg, Slow IV Push, Q5MIN PRN, 4 doses, Starting on Angela 03/10/24 at 1548, Until Thu03/11/24 at 1021, Routine, Pain Scale 4-6, PACU [facility] ondansetron (ZOFRAN (PF)) injection 4 mg 2023-04 21:48: 39 03-10 22:12 :00 No 4mg 4 mg, Slow IV Push, PRN, 1 dose, Starting on Angela 03/10/24 at 1548, Until Angela 03/10/24 at 1612, Administer over 2-5 Minutes, 2 mL, PACU [facility] lidocaine (XYLOCAINE) 2 % jelly URO-JET 2023-04 21:48: 00 03-11 16:21 :03 No PRN, Starting on Angela 03/10/24 at 1548, Until Thu03/11/24 at 1021, Routine, Intra-op [facility] ondansetron (ZOFRAN (PF)) injection 2023-04 21:45: 00 03-10 22:05 :22 No Slow IV Push, ONCE INTRA PROCEDURE, Starting on Angela 03/10/24 at 1545, Until Angela 03/10/24 at 1605, Administer over 2-5 Minutes, Intra-op [facility] dexmedeTOMI Dine (PRECEDEX) injection 2023-04 21:23: 00 03-10 22:05 :22 No Intravenou s, ONCE INTRA PROCEDURE, Starting on Angela 03/10/24 at 1523, Until Angela 03/10/24 at 1605, Routine, Intra-op [facility] dexamethaso ne (DECADRON PHOSPHATE) injection 2023-04 21:18: 00 03-10 22:05 :22 No IV Push, ONCE INTRA PROCEDURE, Starting on Angela 03/10/24 at 1518, Until Angela 03/10/24 at 1605, Routine, Intra-op [facility] ceFAZolin (ANCEF) injection 2023-04 21:12: 00 03-10 22:05 :22 No Slow IV Push, ONCE INTRA PROCEDURE, Starting on Angela 03/10/24 at 1512, Until Angela 03/10/24 at 1605, SANDI, Intra-op [facility] PHENYLephri ne 1000 mcg/10 mL in 0.9% NaCl syringe 2023-04 21:07: 00 03-10 22:05 :22 No Slow IV Push, ONCE INTRA PROCEDURE, Starting on Angela 03/10/24 at 1507, Until Angela 03/10/24 at 1605, Routine, Intra-op [facility] sodium chloride 0.9 % irrigation solution 2023-04 21:05: 00 03-10 22:08 :29 No PRN, Starting on Angela 03/10/24 at 1505, Until Angela 03/10/24 at 1608, Intra-op [facility] povidone-io dine (BETADINE) 10 % solution 2023-04 21:01: 00 03-10 22:08 :29 No PRN, Starting on Angela 03/10/24 at 1501, Until Angela 03/10/24 at 1608, Routine, Intra-op [facility] rocuronium (ZEMURON) injection 2023-04 20:50: 00 03-10 22:05 :22 No IV Push, ONCE INTRA PROCEDURE, Starting on Angela 03/10/24 at 1450, Until Angela 03/10/24 at 1605, Routine, Intra-op [facility] lactated ringers IV infusion 2023-04 20:49: 00 03-10 22:05 :22 No IV Infusion, CONTINUOUS PRN, Starting on Angela 03/10/24 at 1449, Until Angela 03/10/24 at 1605, Routine, Intra-op [facility] propofoL IV infusion 2023-04 20:49: 00 03-10 22:05 :22 No IV Infusion, ONCE INTRA PROCEDURE, Starting on Angela 03/10/24 at 1449, Until Angela 03/10/24 at 1605, Routine, Intra-op [facility] lidocaine 1% (XYLOCAINE) 100 mg/10 mL (1 %) injection 2023-04 20:49: 00 03-10 22:05 :22 No Slow IV Push, ONCE INTRA PROCEDURE, Starting on Angela 03/10/24 at 1449, Until Angela 03/10/24 at 1605, Routine, Intra-op [facility] FENTanyl (PF) (SUBLIMAZE) injection 2023-04 20:49: 00 03-10 22:05 :22 No Intravenou s, ONCE INTRA PROCEDURE, Starting on Angela 03/10/24 at 1449, Until Angela 03/10/24 at 1605, Routine, Intra-op [facility] HYDROmorphO ne (DILAUDID) injection 2023-04 20:46: 00 03-10 22:05 :22 No Slow IV Push, ONCE INTRA PROCEDURE, Starting on Angela 03/10/24 at 1446, Until Angela 03/10/24 at 1605, Routine, Intra-op [facility] cephALEXin 250 mg capsule 2023-04 00:00: 00 03-10 00:00 :00 Yes [id number] 500mg Take 2 capsules by mouth every 12 (twelve) hours. [facility] Blood-Gluco se Sensor (DEXCOM G7 SENSOR) Gogo 2023-04 00:00: 00 Yes [id number] 1{each} 1 Each by subcutaneo us (via wearable injector) route every 10 (ten) days. Use as directed [facility] iohexoL (OMNIPAQUE 300-50 mL)) injection 1 mL 2023-04 20:45: 00 03-01 20:42 :00 No [id number] 1mL 1 mL, Intra-sondra cular, ONCE, 1 dose, On Thu03/01/24 at 1445, Routine [facility] lidocaine 1% (PF) (XYLOCAINE) injection 10 mL 2023-04 20:45: 00 03-01 20:42 :00 No [id number] 10mL 10 mL, Infiltrati on, ONCE, 1 dose, On Thu03/01/24 at 1445, Routine [facility] triamcinolo ne acetonide (KENALOG) injection 80 mg 2023-04 20:45: 00 03-01 20:42 :00 No [id number] 80mg 80 mg, Infiltrati on, ONCE, 1 dose, On Thu03/01/24 at 1445, Routine [facility] NaCl 0.9% (NS) injection 10 mL 2023-04 20:45: 00 03-01 20:42 :00 No [id number] 10mL 10 mL, Infiltrati on, ONCE, 1 dose, On Thu03/01/24 at 1445, Routine [facility] sodium bicarbonate 1 mEq/mL (8.4 %) injection 1 mL 2023-04 20:45: 00 03-01 20:42 :00 No [id number] 1mL 1 mL, Infiltrati on, ONCE, 1 dose, On Thu03/01/24 at 1445, Routine [facility] fentanyl PF (SUBLIMAZE (PF)) injection 2023-04 20:43: 41 03-01 20:43 :41 No TITRATE - FOR PROCEDURE USE, 1 dose, Starting on Thu03/01/24 at 1443, Until Thu03/01/24 at 1443, Routine [facility] midazolam (VERSED) injection 2023-04 20:35: 00 03-01 20:35 :00 No TITRATE - FOR PROCEDURE USE, 1 dose, Starting on Thu03/01/24 at 1435, Until Thu03/01/24 at 1435, Routine [facility] sucralfate 1 gram tablet 2023-04 00:00: 00 Yes 1g Take 1 tablet by mouth before meals and at bedtime. [facility] pantoprazol e 40 mg EC tablet 2023-04 00:00: 00 Yes 40mg Take 1 tablet by mouth in the morning. [facility] diazePAM (VALIUM) tablet 2.5 mg 01-02 07:45: 00 01-02 07:46 :00 No 2.5mg 2.5 mg, Oral, ONCE, 1 dose, On Thu01/03/24 at 0245, SANDI [facility] NaCl 0.9% (NS) bolus infusion 1,000 mL 01-02 07:00: 00 01-02 07:00 :00 No 1000mL at 999 mL/hr, 1,000 mL, IV Infusion, ONCE, 1 dose, On Thu01/03/24 at 0200, STAT [facility] meclizine (TRAVEL-EAS E (MECLIZINE) ) tablet 25 mg 01-02 06:00: 00 01-02 05:54 :00 No 25mg 25 mg, Oral, ONCE, 1 dose, On Thu01/03/24 at 0100, SANDI [facility] NaCl 0.9% (NS) injection 5 mL 2024-0 9-08 05:04: 07 Yes 5mL 5 mL, Slow IV Push, PRN - SEE INSTRUCTIO NS, Starting on 01/03/24 at 0004, Until Discontinu ed, 10 mL [facility] meclizine 25 mg tablet 01-02 00:00: 00 Yes [id number] 25mg Take 1 tablet by mouth every 6 (six) hours. [facility] ondansetron 4 mg disintegrat ing tablet 01-02 00:00: 00 Yes [id number] 4mg Take 1 tablet by mouth every 4 (four) hours as needed for Nausea and Vomiting (N/V). [facility] famotidine 20 mg tablet 12-20 00:00: 00 Yes 20mg Take 1 tablet by mouth at bedtime. [facility] hydrOXYzine 25 mg tablet 12-13 00:00: 00 Yes 25mg Take 1 tablet by mouth every 8 (eight) hours as needed. [facility] metFORMIN 500 mg tablet 12-13 00:00: 00 03-08 00:00 :00 No [facility] gadoteridol (PROHANCE-2 0 mL) injection 0.2 mL/kg 12-10 18:45: 00 12-10 18:31 :00 No [id number] .2mL/kg 0.2 mL/kg, Intravenou s, ONCE, 1 dose, On Thu12/11/23 at 1345, Routine [facility] metformin ER 500 mg 24 hr tablet 12-03 00:00: 00 Yes [id number] 1000mg Take 2 tablets by mouth in the morning and 2 tablets in the evening. Take with meals. [facility] pioglitazon e 30 mg tablet 12-03 00:00: 00 Yes [id number] 30mg Take 1 tablet by mouth every morning. [facility] insulin degludec (TRESIBA FLEXTOUCH U-100) 100 unit/mL (3 mL) InPn 12-03 00:00: 00 04-22 00:00 :00 No [id number] 28U inject 28 Units under the skin at bedtime. Pleas take half dose if blood glucose 80 - 120 mg/dL, hold if less than 80. [facility] glipiZIDE XL 10 mg 24 hr tablet 807 00:00: 00 03-08 00:00 :00 No [facility] metoclopram xavi HCl 10 mg tablet 11-18 00:00: 00 Yes 10mg Take 1 tablet by mouth every 6 (six) hours as needed. [facility] sodium,pota ssium,mag sulfates 17.5-3.13-1 .6 gram 11-18 00:00: 00 Yes [facility] insulin degludec (TRESIBA FLEXTOUCH U-100) 100 unit/mL (3 mL) InPn 10-27 00:00: 00 12-03 00:00 :00 No [id number] INJECT 20 UNITS UNDER THE SKIN EVERY MORNING [facility] insulin glargine (LANTUS U-100) injection 15 Units 10-22 14:00: 00 Yes 15U 15 Units, Subcutaneo us, DAILY, First dose on Thu10/23/23 at 0900, Until Discontinu ed, [facility]el[facility] ([facility]ULAIR) tablet 10 mg 10-22 14:00: 00 Yes 10mg 10 mg, Oral, DAILY, First dose on Thu10/23/23 at 0900, Until Discontinu ed, Routine [facility] amLODIPine (NORVASC) tablet 10 mg 10-22 14:00: 00 Yes 10mg 10 mg, Oral, DAILY, First dose on Thu10/23/23 at 0900, Until Discontinu ed, Routine [facility] pantopraz[facility] (PROTONIX) EC tablet 40 mg 10-22 13:00: 00 Yes 40mg 40 mg, Oral, BID, First dose (after last modificati on) on Thu10/23/23 at 0800, Until Discontinu ed, [facility] ferrous sulfate tablet 325 mg 10-22 13:00: 00 Yes 325mg 325 mg, Oral, BID MEALS, First dose on Thu10/23/23 at 0800, Until Discontinu ed, Routine [facility] Sliding Scale Insulin - Lispro (HumaLOG) 10-22 13:00: 00 Yes [facility] hydrOXYzine (ATARAX) tablet 25 mg 10-22 11:45: 56 Yes 25mg 25 mg, Oral, Q6HPRN, Starting on Thu10/23/23 at 0645, Until Discontinu ed, Routine, Itching [facility] sodium ferric gluconate (FERRLECIT) 125 mg in NaCl 0.9% (NS) 100 mL IV piggyback 10-22 10:00: 00 10-22 11:04 :07 No 125mg 125 mg, IV Piggyback, ONCE, 1 dose, On Thu10/23/23 at 0500, Administer over 60 Minutes, 100 mL [facility] tamsulosin (FLOMAX) capsule 0.4 mg 10-22 03:45: 00 Yes .4mg [facility] mirtazapine (REMERON) tablet 15 mg 10-22 03:45: 00 Yes 15mg [facility] lisinopriL (PRINIVIL,Z ESTRIL) tablet 20 mg 10-22 03:45: 00 Yes 20mg [facility] atorvastati n (LIPITOR) tablet 40 mg 10-22 03:45: 00 Yes 40mg [facility] morphine (2 mg/mL) injection 2 mg 10-22 03:06: 51 Yes 2mg 2 mg, Slow IV Push, Q4HPRN, Starting on Thu10/22/23 at 2206, Until Discontinu ed, Routine, Pain (scale 7-10) [facility] HYDROcodone -acetaminop hen (NORCO 5) 5-325 mg tablet 1 tablet 10-22 03:06: 34 Yes 1{tbl} 1 tablet, Oral, Q6HPRN, Starting on Thu10/22/23 at 2206, Until Discontinu ed, Routine, Pain (scale 4-6) [facility] glucagon (GLUCAGEN DIAGNOSTIC KIT) injection 1 mg 10-22 02:34: 39 Yes 1mg [facility] dextrose 50 % in water (D50W) injection 25 mL 10-22 02:34: 39 Yes 25mL [facility] ondansetron (ZOFRAN (PF)) injection 4 mg 10-22 02:34: 34 Yes 4mg [facility] acetaminoph en (TYLENOL) tablet 650 mg 10-22 02:34: 25 Yes 650mg [facility] HYDROcodone -acetaminop hen (NORCO 5) 5-325 mg tablet 1 tablet 10-22 00:30: 00 10-22 00:29 :00 No 1{tbl} 1 tablet, Oral, ONCE, 1 dose, On [facility] 10/22/23 at 1930, [facility] hydrOXYzine (ATARAX) tablet 25 mg 10-22 00:30: 00 10-22 00:29 :00 No 25mg 25 mg, Oral, ONCE, 1 dose, On [facility] 10/22/23 at 1930, [facility] pantoprazol e 40 mg EC tablet 10-22 00:00: 00 11-22 04:59 :00 No [id number] 40mg Take 1 tablet by mouth in the morning and 1 tablet in the evening. Do all this for 30 days. [facility] hydrOXYzine 25 mg tablet 10-22 00:00: 00 11-22 04:59 :00 No [id number] 25mg Take 1 tablet by mouth every 6 (six) hours as needed for Itching for up to 30 days. [facility] ferrous sulfate 325 mg (65 mg iron) tablet 10-22 00:00: 00 11-22 04:59 :00 No [id number] 325mg Take 1 tablet by mouth in the morning and 1 tablet in the evening. Take with meals. Do all this for 30 days. [facility] FENTanyl PF (SUBLIMAZE (PF)) injection 100 mcg 10-21 22:00: 00 10-21 22:31 :00 No 100ug 100 mcg, Slow IV Push, ONCE, 1 dose, On [place] 10/22/23 at 1700, Routine [facility] HYDROcodone -acetaminop hen (NORCO) 10-325 mg tablet 1 tablet 10-04 07:15: 00 10-04 06:31 :00 No 1{tbl} 1 tablet, Oral, ONCE NOW, 1 dose, On Thu10/05/23 at 0215, [facility] methocarbam oL (ROBAXIN) tablet 500 mg 10-04 06:30: 00 10-04 06:31 :00 No 500mg 500 mg, Oral, ONCE, 1 dose, On Thu10/05/23 at 0130, [facility] FENTanyl PF (SUBLIMAZE (PF)) injection 100 mcg 10-04 05:30: 00 10-04 04:35 :00 No 100ug 100 mcg, Intramuscu lar, ONCE, 1 dose, On Thu10/05/23 at 0030, Routine [facility] methocarbam oL 500 mg tablet 10-04 00:00: 00 Yes [id number] 500mg Take 1 tablet by mouth every 6 (six) hours as needed for Pain (scale 7-10) (MUSCLE SPASM). [facility] tirzepatide (MOUNJARO) 2.5 mg/0.5 mL subcutaneou s injection 09-01 00:00: 00 Yes [id number] 2.5mg inject 2.5 mg under the skin weekly. [facility] lisinopriL 40 mg tablet 08-31 15:39: 56 Yes 40mg Take 1 tablet by mouth in the morning. [facility] aspirin-ani taminophen- caffeine (EXCEDRIN MIGRAINE) 250-250-65 mg per tablet 08-31 15:39: 56 Yes 2{tbl} Take 2 tablets by mouth as needed for Pain. [facility] lancets (ONETOUCH DELICA PLUS LANCET) 33 gauge [facility] 08-31 00:00: 00 Yes [id number] Use as directed to check blood sugar 3 times a day for diagnosis of Type 2 DM, e11.65 [facility] Blood-Gluco se Meter (ONETOUCH VERIO FLEX METER) [facility] 08-31 00:00: 00 Yes [id number] Use as directed [facility] blood sugar diagnostic (ONETOUCH VERIO TEST STRIPS) strip 08-31 00:00: 00 03-17 00:00 :00 No [id number] Use as directed to check blood sugar 3 times daily for Type 2 diabetes mellitus [facility] Blood-Gluco se Sensor (FREESTYLE PEPPER 3 SENSOR) [facility] 08-31 00:00: 00 12-03 00:00 :00 No [id number] Use as directed every 2 weeks [facility] Blood-Gluco se Meter,Liam nuous (FREESTYLE PEPPER 3 READER) [facility] 08-31 00:00: 00 12-03 00:00 :00 No [id number] Use as directed [facility] tirzepatide (MOUNJARO) 2.5 mg/0.5 mL subcutaneou s injection 08-13 00:00: 00 09-01 00:00 :00 No [id number] 2.5mg inject 2.5 mg under the skin weekly. This is the initial dose. [facility] PIOGLITAZON E 30 mg tablet 07-26 00:00: 00 12-03 00:00 :00 No [id number] 30mg TAKE ONE TABLET BY MOUTH EVERY MORNING [facility] metformin ER 500 mg 24 hr tablet - 00:00: 00 12-03 00:00 :00 No [id number] 1000mg Take 2 tablets in the morning and 2 tablets in the evening. Take with meals. [facility] insulin degludec (TRESIBA FLEXTOUCH U-100) 100 unit/mL (3 mL) InPn 07-13 00:00: 00 10-27 00:00 :00 No [id number] 20U inject 20-24 Units under the skin every morning. If your BG is less than 80, HOLD your insulin. If your BG is between 80-120, please take HALF of your insulin. [facility] tirzepatide (MOUNJARO) 5 mg/0.5 mL subcutaneou s injection 07-13 00:00: 00 08-31 00:00 :00 No [id number] 5mg inject 5 mg under the skin weekly. Only take this dose after you have finished the 2.5 mg weekly dose [facility] glipiZIDE XL 10 mg 24 hr tablet 07-13 00:00: 00 08-31 00:00 :00 No [id number] 10mg Take 1 tablet by mouth in the morning and 1 tablet in the evening. Take with meals. [facility] tirzepatide (MOUNJARO) 2.5 mg/0.5 mL subcutaneou s injection 07-13 00:00: 00 08-13 00:00 :00 No [id number] 2.5mg inject 2.5 mg under the skin weekly. This is the initial dose. [facility] TRULICITY 4.5 mg/0.5 mL PnIj 07-12 00:00: 00 Yes [id number] INJECT 4.5 MG UNDER THE SKIN ONCE WEEKLY MUST BE SEEN ON 07/13/23 FOR FUTHER REFILLS [facility] montelukast 10 mg tablet 06-29 00:00: 00 Yes 10mg Take 1 tablet by mouth. [facility] hydrOXYzine 50 mg tablet 06-29 00:00: 00 10-22 00:00 :00 No [facility] pioglitazon e 30 mg tablet 06-28 00:00: 00 07-26 00:00 :00 No [id number] 30mg TAKE ONE TABLET BY MOUTH EVERY MORNING [facility] metformin ER 500 mg 24 hr tablet 06-23 00:00: 00 07-13 00:00 :00 No [id number] TAKE ONE TABLET BY MOUTH TWICE A DAY WITH MEALS [facility] dulaglutide (TRULICITY) 4.5 mg/0.5 mL PnIj 06-18 00:00: 00 07-12 00:00 :00 No [id number] 4.5mg inject 1 Pen under the skin weekly. Must be seen in clinic on 07/13/23 for further refills. [facility] lisinopriL 40 mg tablet 05-22 12:49: 18 Yes 40mg Take 1 tablet by mouth in the morning and 1 tablet in the evening. [facility] aspirin-ani taminophen- caffeine (EXCEDRIN MIGRAINE) 250-250-65 mg per tablet 05-22 12:49: 18 Yes 2{tbl} Take 2 tablets by mouth as needed for Pain. [facility] diphenhydrA MINE (BENADRYL) tablet 50 mg 05-22 04:45: 00 Yes 50mg 50 mg, Oral, Q6HPRN, Starting on Thu05/21/23 at 2245, Until Discontinu ed, Routine, Itching [facility] insulin glargine (LANTUS U-100) injection 30 Units 05-22 03:00: 00 Yes 30U 30 Units, Subcutaneo us, QHS, First dose (after last modificati on) on Thu05/21/23 at 2100, Until Discontinu ed, Routine [facility] gabapentin 100 mg capsule 05-22 00:00: 00 06-22 05:59 :00 No [id number] 100mg Take 1 capsule by mouth in the morning and 1 capsule at noon and 1 capsule in the evening. Do all this for 30 days. [facility] HYDROcodone -acetaminop hen 10-325 mg tablet 05-22 00:00: 00 05-30 05:59 :00 No [id number] 1{tbl} Take 1 tablet by mouth every 4 (four) hours as needed for Pain (scale 4-6) for up to 7 days. Indication s: acute pain [facility] insulin lispro (human) (HumaLOG U-100) injection 10 Units 05-21 23:00: 00 Yes 10U 10 Units, Subcutaneo us, TID MEALS, First dose (after last modificati on) on Thu05/21/23 at 1700, Until Discontinu ed, Routine [facility] NaCl 0.9% (NS) IV infusion 1,000 mL 05-21 18:15: 00 Yes 1000mL at 100 mL/hr, IV Infusion, CONTINUOUS , Starting on Thu05/21/23 at 1215, Until Discontinu ed, Routine [facility] insulin lispro (human) (HumaLOG U-100) injection 8 Units 05-21 18:00: 00 Yes 8U 8 Units, Subcutaneo us, TID MEALS, First dose (after last modificati on) on Thu05/21/23 at 1200, Until Discontinu ed, Routine [facility] amLODIPine (NORVASC) tablet 10 mg 05-21 15:00: 00 Yes 10mg 10 mg, Oral, DAILY, First dose on Thu05/21/23 at 0900, Until Discontinu ed, Routine [facility] diphenhydrA MINE (BENADRYL) tablet 25 mg 05-21 03:24: 55 Yes 25mg 25 mg, Oral, Q4HPRN, Starting on Thu05/20/23 at 2124, Until Discontinu ed, Routine, Itching [facility] insulin glargine (LANTUS U-100) injection 25 Units 05-21 03:00: 00 Yes 25U 25 Units, Subcutaneo us, QHS, First dose on Thu05/20/23 at 2100, Until Discontinu ed, [facility] tams[facility] (FLOMAX) capsule 0.4 mg 05-21 03:00: 00 Yes .4mg 0.4 mg, Oral, QHS, First dose on Thu05/20/23 at 2100, Until Discontinu ed, Routine [facility] atorvastati n (LIPITOR) tablet 40 mg 05-21 03:00: 00 Yes 40mg 40 mg, Oral, QHS, First dose on Thu05/20/23 at 2100, Until Discontinu ed, Routine [facility] Sliding Scale Insulin - Lispro (HumaLOG) 05-20 23:00: 00 Yes Subcutaneo us, TID MEALS+HS, First dose on Thu05/20/23 at 1700, Until Discontinu ed, Routine [facility] methocarbam oL (ROBAXIN) tablet 500 mg 05-20 22:00: 00 Yes 500mg 500 mg, Oral, QID, First dose on Thu05/20/23 at 1600, Until Discontinu ed, Routine [facility] ibuprofen (IBU) tablet 800 mg 05-20 20:00: 00 05-21 17:08 :56 No 800mg 800 mg, Oral, Q8H, First dose on Thu05/20/23 at 1400, Until Discontinu ed, Routine [facility] glucagon (GLUCAGEN DIAGNOSTIC KIT) injection 1 mg 05-20 18:09: 09 Yes 1mg 1 mg, Intramuscu lar, PRN, Starting on Thu05/20/23 at 1209, Until Discontinu ed, SANDI, Blood Glucose < or = 70 mg/dL and patient is NPO, unable to swallow or has mental changes. [facility] dextrose 50 % in water (D50W) injection 25 mL 05-20 18:09: 09 Yes 25mL 25 mL, Slow IV Push, PRN, Starting on Thu05/20/23 at 1209, Until Discontinu ed, SANDI, Blood Glucose < or = 70 mg/dL and patient is NPO, unable to swallow or has mental status changes. [facility] morpHINE (2 mg/mL) injection 4 mg 05-20 18:08: 23 Yes 4mg 4 mg, Slow IV Push, Q2HPRN, Starting on Thu05/20/23 at 1208, Until Discontinu ed, Routine, Pain (scale 7-10) [facility] naloxone (NARCAN) injection 0.4 mg 05-20 18:08: 23 Yes .4mg 0.4 mg, Slow IV Push, PRN, Starting on Thu05/20/23 at 1208, Until Discontinu ed, SANDI, Sedation/R espiratory Depression [facility] HYDROcodone -acetaminop hen (NORCO) 10-325 mg tablet 1 tablet 05-20 18:08: 23 Yes [id number] 1{tbl} 1 tablet, Oral, Q4HPRN, Starting on Thu05/20/23 at 1208, Until Discontinu ed, Routine, Pain (scale 4-6) [facility] magnesium hydroxide (MILK OF MAGNESIA) 400 mg/5 mL suspension 15 mL 05-20 18:08: 23 Yes 15mL 15 mL, Oral, QIDPRN, Starting on Thu05/20/23 at 1208, Until Discontinu ed, Routine, Constipati on [facility] ondansetron (ZOFRAN (PF)) injection 4 mg 05-20 18:08: 23 Yes 4mg 4 mg, Slow IV Push, Q6HPRN, Starting on Thu05/20/23 at 1208, Until Discontinu ed, Routine, Nausea and Vomiting (N/V) [facility] bupivacaine -epinephrin e-pf (SENSORCAIN E W/EPINEPHRI NE) 0.25 %-1:200,000 injection 05-20 17:36: 00 05-20 18:37 :34 No PRN, Starting on Thu05/20/23 at 1136, Until Thu05/20/23 at 1237, Routine, Intra-op [facility] lisinopriL 40 mg tablet 05-20 15:23: 22 Yes 40mg Take 1 tablet by mouth in the morning and 1 tablet in the evening. [facility] aspirin-ani taminophen- caffeine (EXCEDRIN MIGRAINE) 250-250-65 mg per tablet 05-20 15:23: 22 Yes 2{tbl} Take 2 tablets by mouth as needed for Pain. [facility] insulin degludec (TRESIBA FLEXTOUCH U-100) 100 unit/mL (3 mL) In 05-18 00:00: 00 07-13 00:00 :00 No [id number] 20U inject 20 Units under the skin every morning. [facility] Insulin [place], Disposable, (PEN NEEDLE) 31 gauge x 5/16" Ndle 05-16 00:00: 00 Yes [id number] Use as directed once a day [facility] dulaglutide (TRULICITY) 4.5 mg/0.5 mL Pn 05-15 00:00: 00 06-17 00:00 :00 No [id number] 4.5mg inject 1 Pen under the skin weekly. [facility] aspirin-ani taminophen- caffeine (EXCEDRIN MIGRAINE) 250-250-65 mg per tablet 05-14 12:23: 13 Yes 2{tbl} Take 2 tablets by mouth as needed for Pain. [facility] lisinopriL 40 mg tablet 05-14 12:23: 12 Yes 40mg Take 1 tablet by mouth in the morning and 1 tablet in the evening. [facility] insulin degludec (TRESIBA FLEXTOUCH U-100) 100 unit/mL (3 mL) [facility] 05-14 00:00: 00 05-18 00:00 :00 No [id number] 20U inject 20 Units under the skin every morning. [facility] Insulin [place], Disposable, (PEN NEEDLE) 31 gauge x 5/16" Ndle -18 00:00: 00 05-16 00:00 :00 No [id number] Use as directed once a day [facility] pantoprazol e 40 mg EC tablet - 00:00: 00 10-22 00:00 :00 No [facility] (MOUNJARO) 5 mg/0.5 mL PnIj 2022-04 14:09: 31 04-24 00:00 :00 No 5mg inject 5 mg under the skin weekly. [facility] tirzepatide (MOUNJARO) 5 mg/0.5 mL subcutaneou s injection 2022-04 00:00: 00 05-15 00:00 :00 No INJECT 5 MG UNDER THE SKIN ONCE WEEKLY [facility] glipiZIDE XL 10 mg 24 hr tablet 2022-04 00:00: 00 07-13 00:00 :00 No [id number] TAKE 1 TABLET BY MOUTH TWICE A DAY (MORNING AND EVENING) WITH MEALS [facility] hydroCHLORO thiazide 25 mg tablet 2022-04 00:00: 00 Yes 25mg Take 1 tablet by mouth every morning and evening. [facility] mirtazapine 15 mg tablet 2022-04 00:00: 00 Yes 15mg Take 1 tablet by mouth at bedtime. [facility] tirzepatide (MOUNJARO) 5 mg/0.5 mL PnIj 12-19 10:20: 10 Yes 5mg inject 5 mg under the skin weekly. [facility] atorvastati n 40 mg tablet 12-19 00:00: 00 12-19 04:59 :00 No [id number] 40mg Take 1 tablet by mouth at bedtime. [facility] ibuprofen (IBU) tablet 600 mg 12-10 17:15: 00 12-10 17:16 :00 No 600mg 600 mg, Oral, ONCE, 1 dose, On Thu12/10/22 at 1215, SANDI [facility] foLIC acid 1 mg tablet 11-14 00:00: 00 12-15 04:59 :00 No [id number] 1mg Take 1 tablet by mouth in the morning for 30 days. [facility] thiamine 100 mg tablet 11-14 00:00: 00 12-15 04:59 :00 No [id number] 100mg Take 1 tablet by mouth in the morning for 30 days. [facility] aspirin 81 mg chewable tablet 11-14 00:00: 00 11-13 00:00 :00 No [id number] 81mg Take 1 tablet by mouth in the morning for 30 days. [facility] tamsulosin (FLOMAX) capsule 0.4 mg 11-13 02:00: 00 Yes .4mg 0.4 mg, Oral, QHS, First dose on Thu11/12/22 at 2100, Until Discontinu ed, Routine [facility] insulin glargine (LANTUS U-100) injection 20 Units 11-13 02:00: 00 Yes 20U 20 Units, Subcutaneo us, QHS, First dose on Thu11/12/22 at 2100, Until Discontinu ed [facility] ciprofloxac in-hydrocor tisone (CIPRO HC OTIC) otic suspension 3 Drop 11-13 01:00: 00 Yes 3[drp] 3 Drop, Left Ear, BID, First dose on Thu11/12/22 at 2000, Until Discontinu ed, Routine [facility] atorvastati n 40 mg tablet 11-13 00:00: 00 11-13 00:00 :00 No [id number] 40mg Take 1 tablet by mouth every evening for 30 days. [facility] Sliding Scale Insulin - Lispro (HumaLOG) 11-12 22:00: 00 Yes Subcutaneo us, TID MEALS+HS, First dose on Thu11/12/22 at 1700, Until Discontinu ed, Routine [facility] atorvastati n (LIPITOR) tablet 40 mg 11-12 22:00: 00 Yes 40mg 40 mg, Oral, QPM, First dose on Thu11/12/22 at 1700, Until Discontinu ed, Routine [facility] acetaminoph en (TYLENOL) tablet 1,000 mg 11-12 20:58: 35 Yes 1000mg 1,000 mg, Oral, Q6HPRN, Starting on Thu11/12/22 at 1558, Until Discontinu ed, Routine, Pain (scale 1-3) [facility] foLIC acid (FOLATE) tablet 1 mg 11-12 19:00: 00 Yes 1mg 1 mg, Oral, DAILY, First dose on Thu11/12/22 at 1400, Until Discontinu ed, Routine [facility] thiamine (VITAMIN B1) tablet 100 mg 11-12 19:00: 00 Yes 100mg 100 mg, Oral, DAILY, First dose on Thu11/12/22 at 1400, Until Discontinu ed, Routine [facility] glucagon (GLUCAGEN DIAGNOSTIC KIT) injection 1 mg 11-12 18:50: 15 Yes 1mg 1 mg, Intramuscu lar, PRN, Starting on Thu11/12/22 at 1350, Until Discontinu ed, SANDI, Blood Glucose < or = 70 mg/dL and patient is NPO, unable to swallow or has mental changes. [facility] dextrose 50 % in water (D50W) injection 25 mL 11-12 18:50: 15 Yes 25mL 25 mL, Slow IV Push, PRN, Starting on Thu11/12/22 at 1350, Until Discontinu ed, SANDI, Blood Glucose < or = 70 mg/dL and patient is NPO, unable to swallow or has mental status changes. [facility] sulfur hexafluorid e microsphr (LUMASON) injection 5 mL 11-12 17:45: 00 11-12 17:45 :00 No [id number] 5mL 5 mL, Intravenou s, ONCE, 1 dose, On Thu11/12/22 at 1245, Routine
grocery team member approving Restricted medication : JADE TO [facility] famotidine (PEPCID AC) tablet 40 mg 11-12 14:00: 00 Yes 40mg 40 mg, Oral, DAILY, First dose on Thu11/12/22 at 0900, Until Discontinu ed, Routine [facility] amLODIPine (NORVASC) tablet 10 mg 11-12 14:00: 00 Yes 10mg 10 mg, Oral, DAILY, First dose on Thu11/12/22 at 0900, Until Discontinu ed, Routine [facility] aspirin chewable tablet 81 mg 11-12 14:00: 00 Yes 81mg 81 mg, Oral, DAILY, First dose on Thu11/12/22 at 0900, Until Discontinu ed, Routine [facility] docusate (COLACE) capsule 100 mg 11-12 14:00: 00 Yes 100mg 100 mg, Oral, DAILY, First dose on Thu11/12/22 at 0900, Until Discontinu ed, Routine [facility] enoxaparin (LOVENOX) injection 40 mg 11-12 14:00: 00 Yes 40mg 40 mg, Subcutaneo us, DAILY, First dose on Thu11/12/22 at 0900, Until Discontinu ed, Routine [facility] pantoprazol e (PROTONIX) EC tablet 40 mg 11-12 13:00: 00 Yes 40mg 40 mg, Oral, BID, First dose on Thu11/12/22 at 0800, Until Discontinu ed, Routine [facility] gabapentin (NEURONTIN) capsule 100 mg 11-12 13:00: 00 Yes 100mg 100 mg, Oral, TID, First dose on Thu11/12/22 at 0800, Until Discontinu ed, Routine [facility] glipiZIDE XL (GLUCOTROL XL) tablet 10 mg 11-12 13:00: 00 11-12 18:51 :24 No 10mg 10 mg, Oral, BID MEALS, First dose on Thu11/12/22 at 0800, Until Discontinu ed, Routine [facility] metoprolol tartrate (LOPRESSOR) tablet 12.5 mg 11-12 13:00: 00 11-12 18:22 :50 No 12.5mg 12.5 mg, Oral, BID, First dose on Thu11/12/22 at 0800, Until Discontinu ed, Routine [facility] NaCl 0.9% (NS) IV infusion 1,000 mL 11-12 07:45: 00 11-12 14:43 :40 No 1000mL at 125 mL/hr, IV Infusion, CONTINUOUS , Starting on Thu11/12/22 at 0245, Until Thu11/12/22 at 0943, Routine [facility] HYDROcodone -acetaminop hen (NORCO) 10-325 mg tablet 1 tablet 11-12 07:42: 50 Yes 1{tbl} 1 tablet, Oral, Q6HPRN, Starting on Thu11/12/22 at 0242, Until Discontinu ed, Routine, Pain (scale 4-6), Pain (scale 7-10) [facility] cyclobenzap rine (FLEXERIL) tablet 10 mg 11-12 07:42: 17 Yes 10mg 10 mg, Oral, TIDPRN, Starting on Thu11/12/22 at 0242, Until Discontinu ed, Routine, Muscle Spasms [facility] albuterol (VENTOLIN) inhaler 2 Puff 11-12 07:41: 53 Yes 2{puff} 2 Puff, Inhalation , Q6HPRN, Starting on Thu11/12/22 at 0241, Until Discontinu ed, Routine, Wheezing, Shortness of Breath [facility] NaCl 0.9% (NS) IV infusion 1,000 mL 11-12 05:00: 00 11-12 07:41 :34 No 1000mL at 100 mL/hr, IV Infusion, CONTINUOUS , Starting on Thu11/12/22 at 0000, Until Thu11/12/22 at 0241, Routine [facility] ondansetron (ZOFRAN (PF)) injection 4 mg 11-12 04:54: 45 Yes 4mg 4 mg, Slow IV Push, Q6HPRN, Starting on Thu11/11/22 at 2354, Until Discontinu ed, Routine, Nausea and Vomiting (N/V) [facility] iopamidol (ISOVUE 370-500 mL) injection 100 mL 11-12 04:45: 00 11-12 03:52 :00 No [id number] 100mL 100 mL, Intravenou s, ONCE, 1 dose, On Thu11/11/22 at 2345, Routine [facility] insulin degludec (TRESIBA FLEXTOUCH U-100) 100 unit/mL (3 mL) InPn 10-10 00:00: 00 05-14 00:00 :00 No [id number] 20U inject 20 Units under the skin every morning. [facility] dulaglutide (TRULICITY) 0.75 mg/0.5 mL PnIj 10-10 00:00: 00 12-19 00:00 :00 No [id number] .75mg inject 1 Pen under the skin weekly. [facility] tirzepatide (MOUNJARO) 5 mg/0.5 mL PnIj 10-06 00:00: 00 10-10 00:00 :00 No [id number] 5mg inject 5 mg under the skin weekly. [facility] FENTanyl PF (SUBLIMAZE (PF)) injection 50 mcg 10-05 20:00: 00 10-05 19:34 :00 No 50ug 50 mcg, Intramuscu lar, ONCE, 1 dose, On 10/05/22 at 1500, Routine [facility] dexamethaso ne sod phos PF injection 10 mg 10-05 19:15: 00 10-05 19:34 :00 No 10mg 10 mg, Intramuscu lar, ONCE, 1 dose, On 10/05/22 at 1415, 1 mL [facility] diazePAM (VALIUM) tablet 5 mg 10-05 19:15: 00 10-05 19:34 :00 No 5mg 5 mg, Oral, ONCE, 1 dose, On 10/05/22 at 1415, SANDI [facility] ciprofloxac in-dexameth asone (CIPRODEX) 0.3-0.1 % otic drops 10-05 00:00: 00 12-19 00:00 :00 No [id number] 3[drp] Place 3 Drops in left ear in the morning and 3 Drops in the evening. [facility] cyclobenzap rine 10 mg tablet 10-05 00:00: 00 12-19 00:00 :00 No [id number] 10mg Take 1 tablet by mouth 3 (three) times daily as needed for Muscle Spasms. [facility] pioglitazon e 30 mg tablet 09-30 00:00: 00 06-28 00:00 :00 No [id number] 30mg Take 1 tablet by mouth in the morning. [facility] metformin ER 500 mg 24 hr tablet 09-30 00:00: 00 06-23 00:00 :00 No [id number] TAKE 2 TABLETS BY MOUTH TWICE DAILY WITH MEALS [facility] glipiZIDE XL 10 mg 24 hr tablet 09-30 00:00: 04-13 00:00 :00 No [id number] 10mg Take 1 tablet by mouth in the morning and 1 tablet in the evening. Take with meals. [facility] lisinopriL 40 mg tablet 09-30 00:00: 11-13 00:00 :00 No [id number] 40mg Take 1 tablet by mouth in the morning. [facility] insulin degludec (TRESIBA FLEXTOUCH U-100) 100 unit/mL (3 mL) InPn 09-30 00:00: 00 10-10 00:00 :00 No [id number] 20U inject 20 Units under the skin every morning. [facility] tirzepatide (MOUNJARO) 5 mg/0.5 mL PnIj 09-30 00:00: 00 10-06 00:00 :00 No [id number] 5mg inject 5 mg under the skin weekly. [facility] dulaglutide (TRULICITY) 3 mg/0.5 mL PnIj 07-22 00:00: 00 09-30 00:00 :00 No [id number] 3mg inject 1 Pen under the skin weekly. [facility] dulaglutide (TRULICITY) 1.5 mg/0.5 mL PnIj 07-01 00:00: 00 Yes [id number] 1.5mg inject 1 Pen under the skin weekly. [facility] insulin degludec (TRESIBA FLEXTOUCH U-100) 100 unit/mL (3 mL) InPn 06-23 00:00: 00 09-30 00:00 :00 No [id number] 20U inject 20 Units under the skin every morning. [facility] tirzepatide (MOUNJARO) 5 mg/0.5 mL PnIj 06-02 00:00: 00 07-01 00:00 :00 No [id number] 5mg inject 5 mg under the skin weekly. Dx E11.65 [facility] Blood-Gluco se Meter [facility] 2021-04 00:00: 00 Yes [id number] Use daily. Dx E11.65 [facility] blood sugar diagnostic (BLOOD GLUCOSE TEST) strip 2021-04 00:00: 00 Yes [id number] Use daily. Dx E11.65 [facility] lancets 30 gauge [facility] 2021-04 00:00: 00 08-31 00:00 :00 No [id number] Use daily. Dx E11.65 [facility] Blood-Gluco se Meter [facility] 2021-04 00:00: 00 08-31 00:00 :00 No [id number] Use daily. Dx E11.65 [facility] blood sugar diagnostic (BLOOD GLUCOSE TEST) strip 2021-04 00:00: 00 08-31 00:00 :00 No [id number] Use daily. Dx E11.65 [facility] lisinopriL 40 mg tablet 2021-04 00:00: 00 09-30 00:00 :00 No [id number] 40mg Take 1 tablet by mouth in the morning. [facility] metformin ER 500 mg 24 hr tablet 2021-04 00:00: 00 09-30 00:00 :00 No [id number] TAKE 2 TABLETS BY MOUTH TWICE DAILY WITH MEALS [facility] pioglitazon e 30 mg tablet 2021-04 00:00: 00 09-30 00:00 :00 No [id number] 30mg Take 1 tablet by mouth in the morning. [facility] glipiZIDE XL 10 mg 24 hr tablet 2021-04 00:00: 00 09-30 00:00 :00 No [id number] 10mg Take 1 tablet by mouth in the morning and 1 tablet in the evening. Take with meals. [facility] insulin degludec (TRESIBA FLEXTOUCH U-100) 100 unit/mL (3 mL) InPn 2021-04 00:00: 00 06-23 00:00 :00 No [id number] 20U inject 20 Units under the skin every morning. [facility] tirzepatide (MOUNJARO) 5 mg/0.5 mL PnIj 2021-04 00:00: 00 06-02 00:00 :00 No [id number] 5mg inject 5 mg under the skin weekly. [facility] tirzepatide (MOUNJARO) 7.5 mg/0.5 mL PnIj 2021-04 00:00: 00 03-28 00:00 :00 No 7.5mg inject 7.5 mg under the skin weekly. [facility] albuterol 90 mcg/actuati on inhaler 2021-04 00:00: 00 12-19 00:00 :00 No [id number] 2{puff} Inhale 2 Puffs every 6 (six) hours as needed for Wheezing or Shortness of Breath. [facility] tirzepatide (MOUNJARO) 5 mg/0.5 mL PnIj 2021-04 00:00: 00 03-26 00:00 :00 No 5mg inject 5 mg under the skin weekly. [facility] ALPRAZolam 2 mg tablet 2021-04 00:00: 00 Yes 2mg Take 1 tablet by mouth as needed. [facility] famotidine 40 mg tablet 2022-1 1-03 00:00: 00 10-22 00:00 :00 No [facility] GABAPENTIN 100 mg capsule 2021-04 1- 00:00: 00 12-19 00:00 :00 No [id number] TAKE ONE CAPSULE BY MOUTH THREE TIMES A DAY (MORNING, NOON AND EVENING) [facility] tirzepatide (MOUNJARO) 2.5 mg/0.5 mL [facility] 2021-04 0 00:00: 00 02-17 00:00 :00 No [id number] 2.5mg Inject 2.5 mg as directed weekly. [facility] ciprofloxac in-dexameth asone (CIPRODEX) 0.3-0.1 % otic drops 14 00:00: 00 10-05 00:00 :00 No [id number] 3[drp] Place 3 Drops in left ear in the morning and 3 Drops in the evening. [facility] semaglutide (OZEMPIC) 1 mg/dose (4 mg/3 mL) [facility] - 00:00: 00 01-07 00:00 :00 No [id number] 1mg inject 1 mg under the skin weekly. [facility] dulaglutide (TRULICITY) 3 mg/0.5 mL [facility] 8-10 00:00: 00 01-07 00:00 :00 No [id number] 3mg inject 1 Pen under the skin weekly. [facility] lisinopriL 40 mg tablet 11-15 00:00: 00 Yes [id number] 40mg Take 1 tablet by mouth in the morning and 1 tablet in the evening. [facility] glipiZIDE XL 10 mg 24 hr tablet 11-15 00:00: 00 03-28 00:00 :00 No [id number] 10mg Take 1 tablet by mouth in the morning and 1 tablet in the evening. Take with meals. [facility] insulin degludec (TRESIBA FLEXTOUCH U-100) 100 unit/mL (3 mL) In 11-15 00:00: 00 03-28 00:00 :00 No [id number] 24U inject 24 Units under the skin every morning. [facility] pioglitazon e 30 mg tablet 11-15 00:00: 00 03-28 00:00 :00 No [id number] 30mg Take 1 tablet by mouth in the morning. [facility] metformin ER 500 mg 24 hr tablet 11-15 00:00: 00 03-28 00:00 :00 No [id number] TAKE 2 TABLETS BY MOUTH TWICE DAILY WITH MEALS [facility] gabapentin 100 mg capsule 11-15 00:00: 00 02-25 00:00 :00 No [id number] 100mg Take 1 capsule by mouth in the morning and 1 capsule at noon and 1 capsule in the evening. [facility] Insulin [place], Disposable, (PEN NEEDLE) 31 gauge x 5/16" [facility] 2020-04 00:00: 00 Yes [id number] Use as directed once a day [facility] Insulin [place], Disposable, (PEN NEEDLE) 31 gauge x 5/16" [facility] 2020-04 00:00: 00 05-13 00:00 :00 No [id number] Use as directed once a day [facility] albuterol 90 mcg/actuati on inhaler 01-20 00:00: 00 12-19 00:00 :00 No INHALE 1 PUFF BY MOUTH EVERY 4 TO 6 HOURS [facility] HYDROcodone -acetaminop hen 10-325 mg tablet 01-01 00:00: 00 Yes 1{tbl} 1 tablet every 8 (eight) hours as needed. [facility] omeprazole 40 mg capsule 12-05 00:00: 00 12-19 00:00 :00 No 40mg Take 40 mg by mouth 2 (two) times daily. [facility] testosteron e cypionate 200 mg/mL injection 11-28 00:00: 00 09-30 00:00 :00 No INJECT 1 ML INTRAMUSCU LARLY ONCE A WEEK [facility] hydroCHLORO thiazide 25 mg tablet 7-05 00:00: 00 11-13 00:00 :00 No [id number] 25mg Take 1 tablet by mouth daily. [facility] pantoprazol e 40 mg EC tablet 4-12 00:00: 00 11-13 00:00 :00 No [id number] 40mg Take 1 tablet by mouth 2 (two) times daily. [facility] amLODIPine 10 mg tablet 05 00:00: 00 Yes [id number] 10mg Take 1 tablet by mouth daily. Appointmen t needed for further refills. Please contact office. [facility] Blood-Gluco se Meter (RELION ALL-IN-ONE METER) Kit 3-27 00:00: 00 03-28 00:00 :00 No [id number] Check glucose 3 times daily before meals [facility] pantoprazol e 40 mg EC tablet 2-24 00:00: 00 11-13 00:00 :00 No [id number] 40mg Take 1 tablet by mouth 2 (two) times daily. [facility] methocarbam oL 500 mg tablet 2019-04 0-14 00:00: 00 11-13 00:00 :00 No [id number] 500mg Take 1 tablet by mouth 4 (four) times daily. [facility] tamsulosin 0.4 mg 24 hr capsule 2019-04 00:00: 00 Yes [id number] .4mg Take 1 capsule by mouth at bedtime. [facility] peg-electro lyte soln 236-22.74-6 .74 -5.86 gram solution 10-20 00:00: 00 11-13 00:00 :00 No Take as Directed [facility] testosteron e enanthate (XYOSTED) 75 mg/0.5 mL AtIn 08-21 00:00: 00 09-30 00:00 :00 No [id number] 75mg inject 75 mg under the skin weekly. Indication s: needlephob ia [facility] syringe-nee dle,safety, disp unt 1.5 mL 22 gauge x 1 1/2" [facility] 11-30 00:00: 00 Yes [id number] Use as directed with testostero ne injection once J1apiis [facility] syringe-nee dle,safety, disp unt 1.5 mL 22 gauge x 1 1/2" [facility] 11-30 00:00: 00 12-03 00:00 :00 No [id number] Use as directed with testostero ne injection once [id number] [facility] blood sugar diagnostic (ACCU-CHEK GUIDE) strip 12-08 00:00: 00 03-28 00:00 :00 No Use as directed, TID, DX:E11.9 [facility] Lancets (ACCU-CHEK FASTCLIX) Misc 12-08 00:00: 00 03-28 00:00 :00 No Use as directed, TID, DX:E11.9 [facility] Immunizations Ordered Immunization Name Filled Immunization Name Date Status Comments Source Flu Injectable MDCK Pres-Free (FLUCELVAX) 2024-02-02 00:00:[address] [facility] Influenza Virus Vaccine Quad IM, Preserv and ABX Free 6 MO-64 YRS 2021-07-16 00:00:[address] [facility] Influenza Virus Vaccine Quad IM, Preserv and ABX Free 6 MO-64 YRS 2021-07-16 00:00:[address] [facility] Influenza Virus Vaccine Quad IM, Preserv and ABX Free 6 MO-64 YRS 2021-07-16 00:00:[address] [facility] Influenza Virus Vaccine Quad IM, Preserv and ABX Free 6 MO-64 YRS 2021-07-16 00:00:[address] [facility] Influenza Virus Vaccine Quad IM, Preserv and ABX Free 6 MO-64 YRS 2021-07-16 00:00:[address] [facility] Influenza Virus Vaccine Quad IM, Preserv and ABX Free 6 MO-64 YRS 2021-07-16 00:00:[address] [facility] Influenza Virus Vaccine Quad IM, Preserv and ABX Free 6 MO-64 YRS 2021-07-16 00:00:[address] [facility] Influenza Virus Vaccine Quad IM, Preserv and ABX Free 6 MO-64 YRS 2021-07-16 00:00:[address] [facility] Influenza Virus Vaccine Quad IM, Preserv and ABX Free 6 MO-64 YRS 2021-07-16 00:00:[address] [facility] Influenza Virus Vaccine Quad IM, Preserv and ABX Free 6 MO-64 YRS 2021-07-16 00:00:[address] [facility] Influenza Virus Vaccine Quad IM, Preserv and ABX Free 6 MO-64 YRS 2021-07-16 00:00:[address] [facility] Influenza Virus Vaccine Quad IM, Preserv and ABX Free 6 MO-64 YRS 2021-07-16 00:00:[address] [facility] Influenza Virus Vaccine Quad IM, Preserv and ABX Free 6 MO-64 YRS 2021-07-16 00:00:[address] [facility] Influenza Virus Vaccine Quad IM, Preserv and ABX Free 6 MO-64 YRS 2021-07-16 00:00:[address] [facility] Influenza Virus Vaccine Quad IM, Preserv and ABX Free 6 MO-64 YRS 2021-07-16 00:00:[address] [facility] Influenza Virus Vaccine Quad IM, Preserv and ABX Free 6 MO-64 YRS 2021-07-16 00:00:[address] [facility] Influenza Virus Vaccine Quad IM, Preserv and ABX Free 6 MO-64 YRS 2021-07-16 00:00:[address] [facility] Influenza Virus Vaccine Quad IM, Preserv and ABX Free 6 MO-64 YRS 2021-07-16 00:00:[address] [facility] Influenza Virus Vaccine Quad IM, Preserv and ABX Free 6 MO-64 YRS 2021-07-16 00:00:[address] [facility] Influenza Virus Vaccine Quad IM, Preserv and ABX Free 6 MO-64 YRS 2021-07-16 00:00:[address] [facility] Influenza Virus Vaccine Quad IM, Preserv and ABX Free 6 MO-64 YRS 2021-07-16 00:00:[address] [facility] Influenza Virus Vaccine Quad IM, Preserv and ABX Free 6 MO-64 YRS 2021-07-16 00:00:[address] [facility] Influenza Virus Vaccine Quad IM, Preserv and ABX Free 6 MO-64 YRS 2021-07-16 00:00:[address] [facility] Influenza Virus Vaccine Quad IM, Preserv and ABX Free 6 MO-64 YRS 2021-07-16 00:00:[address] [facility] Influenza Virus Vaccine Quad IM, Preserv and ABX Free 6 MO-64 YRS 2021-07-16 00:00:[address] [facility] Influenza Virus Vaccine Quad IM, Preserv and ABX Free 6 MO-64 YRS 2021-07-16 00:00:[address] [facility] Influenza Virus Vaccine Quad IM, Preserv and ABX Free 6 MO-64 YRS 2021-07-16 00:00:[address] [facility] Influenza Virus Vaccine Quad IM, Preserv and ABX Free 6 MO-64 YRS 2021-07-16 00:00:[address] [facility] Influenza Virus Vaccine Quad IM, Preserv and ABX Free 6 MO-64 YRS 2021-07-16 00:00:[address] [facility] Influenza Virus Vaccine Quad IM, Preserv and ABX Free 6 MO-64 YRS 2021-07-16 00:00:[address] [facility] Influenza Virus Vaccine Quad IM, Preserv and ABX Free 6 MO-64 YRS 2021-07-16 00:00:[address] [facility] Influenza Virus Vaccine Quad IM, Preserv and ABX Free 6 MO-64 YRS 2021-07-16 00:00:[address] [facility] Influenza Virus Vaccine Quad IM, Preserv and ABX Free 6 MO-64 YRS 2021-07-16 00:00:[address] [facility] Influenza Virus Vaccine Quad IM, Preserv and ABX Free 6 MO-64 YRS 2021-07-16 00:00:[address] [facility] Influenza Virus Vaccine Quad IM, Preserv and ABX Free 6 MO-64 YRS 2021-07-16 00:00:[address] [facility] Influenza Virus Vaccine Quad IM, Preserv and ABX Free 6 MO-64 YRS 2021-07-16 00:00:[address] [facility] Influenza Virus Vaccine Quad IM, Preserv and ABX Free 6 MO-64 YRS 2021-07-16 00:00:[address] [facility] Influenza Virus Vaccine Quad IM, Preserv and ABX Free 6 MO-64 YRS 2021-07-16 00:00:[address] [facility] Influenza Virus Vaccine Quad IM, Preserv and ABX Free 6 MO-64 YRS 2021-07-16 00:00:[address] [facility] Influenza Virus Vaccine Quad IM, Preserv and ABX Free 6 MO-64 YRS 2021-07-16 00:00:[address] [facility] Influenza Virus Vaccine Quad IM, Preserv and ABX Free 6 MO-64 YRS (FLUCELVAX) 2021-07-16 00:00:[address] [facility] Influenza Virus Vaccine Quad IM, Preserv and ABX Free 6 MO-64 YRS (FLUCELVAX) 2021-07-16 00:00:[address] [facility] Influenza Virus Vaccine Quad .5 mL IM 6+ MO 2019-12-19 00:00:[address] [facility] Influenza Virus Vaccine Quad .5 mL IM 6+ MO 2019-12-19 00:00:[address] [facility] Influenza Virus Vaccine Quad .5 mL IM 6+ MO 2019-12-19 00:00:[address] [facility] Influenza Virus Vaccine Quad .5 mL IM 6+ MO 2019-12-19 00:00:[address] [facility] Influenza Virus Vaccine Quad .5 mL IM 6+ MO 2019-12-19 00:00:[address] [facility] Influenza Virus Vaccine Quad .5 mL IM 6+ MO 2019-12-19 00:00:[address] [facility] Influenza Virus Vaccine Quad .5 mL IM 6+ MO 2019-12-19 00:00:[address] [facility] Influenza Virus Vaccine Quad .5 mL IM 6+ MO 2019-12-19 00:00:[address] [facility] Influenza Virus Vaccine Quad .5 mL IM 6+ MO 2019-12-19 00:00:[address] [facility] Influenza Virus Vaccine Quad .5 mL IM 6+ MO 2019-12-19 00:00:[address] [facility] Influenza Virus Vaccine Quad .5 mL IM 6+ MO 2019-12-19 00:00:[address] [facility] Influenza Virus Vaccine Quad .5 mL IM 6+ MO 2019-12-19 00:00:[address] [facility] Influenza Virus Vaccine Quad .5 mL IM 6+ MO 2019-12-19 00:00:[address] [facility] Influenza Virus Vaccine Quad .5 mL IM 6+ MO 2019-12-19 00:00:[address] [facility] Influenza Virus Vaccine Quad .5 mL IM 6+ MO 2019-12-19 00:00:[address] [facility] Influenza Virus Vaccine Quad .5 mL IM 6+ MO 2019-12-19 00:00:[address] [facility] Influenza Virus Vaccine Quad .5 mL IM 6+ MO 2019-12-19 00:00:[address] [facility] Influenza Virus Vaccine Quad .5 mL IM 6+ MO 2019-12-19 00:00:[address] [facility] Influenza Virus Vaccine Quad .5 mL IM 6+ MO 2019-12-19 00:00:[address] [facility] Influenza Virus Vaccine Quad .5 mL IM 6+ MO 2019-12-19 00:00:[address] [facility] Influenza Virus Vaccine Quad .5 mL IM 6+ MO 2019-12-19 00:00:[address] [facility] Influenza Virus Vaccine Quad .5 mL IM 6+ MO 2019-12-19 00:00:[address] [facility] Influenza Virus Vaccine Quad .5 mL IM 6+ MO 2019-12-19 00:00:[address] [facility] Influenza Virus Vaccine Quad .5 mL IM 6+ MO 2019-12-19 00:00:[address] [facility] Influenza Virus Vaccine Quad .5 mL IM 6+ MO 2019-12-19 00:00:[address] [facility] Influenza Virus Vaccine Quad .5 mL IM 6+ MO 2019-12-19 00:00:[address] [facility] Influenza Virus Vaccine Quad .5 mL IM 6+ MO 2019-12-19 00:00:[address] [facility] Influenza Virus Vaccine Quad .5 mL IM 6+ MO 2019-12-19 00:00:[address] [facility] Influenza Virus Vaccine Quad .5 mL IM 6+ MO 2019-12-19 00:00:[address] [facility] Influenza Virus Vaccine Quad .5 mL IM 6+ MO 2019-12-19 00:00:[address] [facility] Influenza Virus Vaccine Quad .5 mL IM 6+ MO 2019-12-19 00:00:[address] [facility] Influenza Virus Vaccine Quad .5 mL IM 6+ MO 2019-12-19 00:00:[address] [facility] Influenza Virus Vaccine Quad .5 mL IM 6+ MO 2019-12-19 00:00:[address] [facility] Influenza Virus Vaccine Quad .5 mL IM 6+ MO 2019-12-19 00:00:[address] [facility] Influenza Virus Vaccine Quad .5 mL IM 6+ MO 2019-12-19 00:00:[address] [facility] Influenza Virus Vaccine Quad .5 mL IM 6+ MO 2019-12-19 00:00:[address] [facility] Influenza Virus Vaccine Quad .5 mL IM 6+ MO 2019-12-19 00:00:[address] [facility] Influenza Virus Vaccine Quad .5 mL IM 6+ MO 2019-12-19 00:00:[address] [facility] Influenza Virus Vaccine Quad .5 mL IM 6+ MO 2019-12-19 00:00:[address] [facility] Influenza Virus Vaccine Quad .5 mL IM 6+ MO 2019-12-19 00:00:[address] [facility] Influenza Virus Vaccine Quad .5 mL IM 6+ MO (FLUZONE/FLULAVAL/F LUARIX) 2019-12-19 00:00:[address] [facility] Influenza Virus Vaccine Quad .5 mL IM 6+ MO (FLUZONE/FLULAVAL/F LUARIX) 2019-12-19 00:00:00 Completed HEPLISAV HEP B, ADULT 2 DOSE, IM 2019-01-24 00:00:[address] [facility] Influenza Virus Vaccine 2019-01-24 00:00:[address] [facility] HEPLISAV HEP B, ADULT 2 DOSE, IM 2019-01-24 00:00:[address] [facility] Influenza Virus Vaccine 2019-01-24 00:00:[address] [facility] HEPLISAV HEP B, ADULT 2 DOSE, IM 2019-01-24 00:00:[address] [facility] Influenza Virus Vaccine 2019-01-24 00:00:[address] [facility] HEPLISAV HEP B, ADULT 2 DOSE, IM 2019-01-24 00:00:[address] [facility] Influenza Virus Vaccine 2019-01-24 00:00:[address] [facility] HEPLISAV HEP B, ADULT 2 DOSE, IM 2019-01-24 00:00:[address] [facility] Influenza Virus Vaccine 2019-01-24 00:00:[address] [facility] HEPLISAV HEP B, ADULT 2 DOSE, IM 2019-01-24 00:00:[address] [facility] Influenza Virus Vaccine 2019-01-24 00:00:[address] [facility] HEPLISAV HEP B, ADULT 2 DOSE, IM 2019-01-24 00:00:[address] [facility] Influenza Virus Vaccine 2019-01-24 00:00:[address] [facility] HEPLISAV HEP B, ADULT 2 DOSE, IM 2019-01-24 00:00:[address] [facility] Influenza Virus Vaccine 2019-01-24 00:00:[address] [facility] HEPLISAV HEP B, ADULT 2 DOSE, IM 2019-01-24 00:00:[address] [facility] Influenza Virus Vaccine 2019-01-24 00:00:[address] [facility] HEPLISAV HEP B, ADULT 2 DOSE, IM 2019-01-24 00:00:[address] [facility] Influenza Virus Vaccine 2019-01-24 00:00:[address] [facility] HEPLISAV HEP B, ADULT 2 DOSE, IM 2019-01-24 00:00:[address] [facility] Influenza Virus Vaccine 2019-01-24 00:00:[address] [facility] HEPLISAV HEP B, ADULT 2 DOSE, IM 2019-01-24 00:00:[address] [facility] Influenza Virus Vaccine 2019-01-24 00:00:[address] [facility] HEPLISAV HEP B, ADULT 2 DOSE, IM 2019-01-24 00:00:[address] [facility] Influenza Virus Vaccine 2019-01-24 00:00:[address] [facility] HEPLISAV HEP B, ADULT 2 DOSE, IM 2019-01-24 00:00:[address] [facility] Influenza Virus Vaccine 2019-01-24 00:00:[address] [facility] HEPLISAV HEP B, ADULT 2 DOSE, IM 2019-01-24 00:00:[address] [facility] Influenza Virus Vaccine 2019-01-24 00:00:[address] [facility] HEPLISAV HEP B, ADULT 2 DOSE, IM 2019-01-24 00:00:[address] [facility] Influenza Virus Vaccine 2019-01-24 00:00:[address] [facility] HEPLISAV HEP B, ADULT 2 DOSE, IM 2019-01-24 00:00:[address] [facility] Influenza Virus Vaccine 2019-01-24 00:00:[address] [facility] HEPLISAV HEP B, ADULT 2 DOSE, IM 2019-01-24 00:00:[address] [facility] Influenza Virus Vaccine 2019-01-24 00:00:[address] [facility] HEPLISAV HEP B, ADULT 2 DOSE, IM 2019-01-24 00:00:[address] [facility] Influenza Virus Vaccine 2019-01-24 00:00:[address] [facility] HEPLISAV HEP B, ADULT 2 DOSE, IM 2019-01-24 00:00:[address] [facility] Influenza Virus Vaccine 2019-01-24 00:00:[address] [facility] HEPLISAV HEP B, ADULT 2 DOSE, IM 2019-01-24 00:00:[address] [facility] Influenza Virus Vaccine 2019-01-24 00:00:[address] [facility] HEPLISAV HEP B, ADULT 2 DOSE, IM 2019-01-24 00:00:[address] [facility] Influenza Virus Vaccine 2019-01-24 00:00:[address] [facility] HEPLISAV HEP B, ADULT 2 DOSE, IM 2019-01-24 00:00:[address] [facility] Influenza Virus Vaccine 2019-01-24 00:00:[address] [facility] HEPLISAV HEP B, ADULT 2 DOSE, IM 2019-01-24 00:00:[address] [facility] Influenza Virus Vaccine 2019-01-24 00:00:[address] [facility] HEPLISAV HEP B, ADULT 2 DOSE, IM 2019-01-24 00:00:[address] [facility] Influenza Virus Vaccine 2019-01-24 00:00:[address] [facility] HEPLISAV HEP B, ADULT 2 DOSE, IM 2019-01-24 00:00:[address] [facility] Influenza Virus Vaccine 2019-01-24 00:00:[address] [facility] HEPLISAV HEP B, ADULT 2 DOSE, IM 2019-01-24 00:00:[address] [facility] Influenza Virus Vaccine 2019-01-24 00:00:[address] [facility] HEPLISAV HEP B, ADULT 2 DOSE, IM 2019-01-24 00:00:[address] [facility] Influenza Virus Vaccine 2019-01-24 00:00:[address] [facility] HEPLISAV HEP B, ADULT 2 DOSE, IM 2019-01-24 00:00:[address] [facility] Influenza Virus Vaccine 2019-01-24 00:00:[address] [facility] HEPLISAV HEP B, ADULT 2 DOSE, IM 2019-01-24 00:00:[address] [facility] Influenza Virus Vaccine 2019-01-24 00:00:[address] [facility] HEPLISAV HEP B, ADULT 2 DOSE, IM 2019-01-24 00:00:[address] [facility] Influenza Virus Vaccine 2019-01-24 00:00:[address] [facility] HEPLISAV HEP B, ADULT 2 DOSE, IM 2019-01-24 00:00:[address] [facility] Influenza Virus Vaccine 2019-01-24 00:00:[address] [facility] HEPLISAV HEP B, ADULT 2 DOSE, IM 2019-01-24 00:00:[address] [facility] Influenza Virus Vaccine 2019-01-24 00:00:[address] [facility] HEPLISAV HEP B, ADULT 2 DOSE, IM 2019-01-24 00:00:[address] [facility] Influenza Virus Vaccine 2019-01-24 00:00:[address] [facility] HEPLISAV HEP B, ADULT 2 DOSE, IM 2019-01-24 00:00:[address] [facility] Influenza Virus Vaccine 2019-01-24 00:00:[address] [facility] HEPLISAV HEP B, ADULT 2 DOSE, IM 2019-01-24 00:00:[address] [facility] Influenza Virus Vaccine 2019-01-24 00:00:[address] [facility] HEPLISAV HEP B, ADULT 2 DOSE, IM 2019-01-24 00:00:[address] [facility] Influenza Virus Vaccine 2019-01-24 00:00:[address] [facility] HEPLISAV HEP B, ADULT 2 DOSE, IM 2019-01-24 00:00:[address] [facility] Influenza Virus Vaccine 2019-01-24 00:00:[address] [facility] HEPLISAV HEP B, ADULT 2 DOSE, IM 2019-01-24 00:00:[address] [facility] Influenza Virus Vaccine 2019-01-24 00:00:[address] [facility] HEPLISAV HEP B, ADULT 2 DOSE, IM 2019-01-24 00:00:[address] [facility] Influenza Virus Vaccine 2019-01-24 00:00:[address] [facility] HEPLISAV HEP B, ADULT 2 DOSE, IM 2019-01-24 00:00:[address] [facility] Influenza Virus Vaccine 2019-01-24 00:00:[address] [facility] HEPLISAV HEP B, ADULT 2 DOSE, IM 2019-01-24 00:00:[address] [facility] Influenza Virus Vaccine 2019-01-24 00:00:[address] [facility] HEPLISAV HEP B, ADULT 2 DOSE, IM Unknown Completed [facility] Influenza Virus Vaccine Unknown Completed [facility] Influenza Virus Vaccine Quad .5 mL IM 6+ MO (FLUZONE/FLULAVAL/F LUARIX) Unknown Completed [facility] Influenza Virus Vaccine Quad IM, Preserv and ABX Free 6 MO-64 YRS (FLUCELVAX) Unknown Completed [facility] HEPLISAV HEP B, ADULT 2 DOSE, IM Unknown Completed [facility] Influenza Virus Vaccine Unknown Completed [facility] Influenza Virus Vaccine Quad .5 mL IM 6+ MO (FLUZONE/FLULAVAL/F LUARIX) Unknown Completed [facility] Influenza Virus Vaccine Quad IM, Preserv and ABX Free 6 MO-64 YRS (FLUCELVAX) Unknown Completed [facility] HEPLISAV HEP B, ADULT 2 DOSE, IM Unknown Completed [facility] Influenza Virus Vaccine Unknown Completed [facility] Influenza Virus Vaccine Quad .5 mL IM 6+ MO (FLUZONE/FLULAVAL/F LUARIX) Unknown Completed [facility] Influenza Virus Vaccine Quad IM, Preserv and ABX Free 6 MO-64 YRS (FLUCELVAX) Unknown Completed [facility] HEPLISAV HEP B, ADULT 2 DOSE, IM Unknown Completed [facility] Influenza Virus Vaccine Unknown Completed [facility] Influenza Virus Vaccine Quad .5 mL IM 6+ MO (FLUZONE/FLULAVAL/F LUARIX) Unknown Completed [facility] Influenza Virus Vaccine Quad IM, Preserv and ABX Free 6 MO-64 YRS (FLUCELVAX) Unknown Completed [facility] HEPLISAV HEP B, ADULT 2 DOSE, IM Unknown Completed [facility] Influenza Virus Vaccine Unknown Completed [facility] Influenza Virus Vaccine Quad .5 mL IM 6+ MO (FLUZONE/FLULAVAL/F LUARIX) Unknown Completed [facility] Influenza Virus Vaccine Quad IM, Preserv and ABX Free 6 MO-64 YRS (FLUCELVAX) Unknown Completed [facility] HEPLISAV HEP B, ADULT 2 DOSE, IM Unknown Completed [facility] Influenza Virus Vaccine Unknown Completed [facility] Influenza Virus Vaccine Quad .5 mL IM 6+ MO (FLUZONE/FLULAVAL/F LUARIX) Unknown Completed [facility] Influenza Virus Vaccine Quad IM, Preserv and ABX Free 6 MO-64 YRS (FLUCELVAX) Unknown Completed [facility] HEPLISAV HEP B, ADULT 2 DOSE, IM Unknown Completed [facility] Influenza Virus Vaccine Unknown Completed [facility] Influenza Virus Vaccine Quad .5 mL IM 6+ MO (FLUZONE/FLULAVAL/F LUARIX) Unknown Completed [facility] Influenza Virus Vaccine Quad IM, Preserv and ABX Free 6 MO-64 YRS (FLUCELVAX) Unknown Completed [facility] HEPLISAV HEP B, ADULT 2 DOSE, IM Unknown Completed [facility] Influenza Virus Vaccine Unknown Completed [facility] Influenza Virus Vaccine Quad .5 mL IM 6+ MO (FLUZONE/FLULAVAL/F LUARIX) Unknown Completed [facility] Influenza Virus Vaccine Quad IM, Preserv and ABX Free 6 MO-64 YRS (FLUCELVAX) Unknown Completed [facility] HEPLISAV HEP B, ADULT 2 DOSE, IM Unknown Completed [facility] Influenza Virus Vaccine Unknown Completed [facility] Influenza Virus Vaccine Quad .5 mL IM 6+ MO (FLUZONE/FLULAVAL/F LUARIX) Unknown Completed [facility] Influenza Virus Vaccine Quad IM, Preserv and ABX Free 6 MO-64 YRS (FLUCELVAX) Unknown Completed [facility] HEPLISAV HEP B, ADULT 2 DOSE, IM Unknown Completed [facility] Influenza Virus Vaccine Unknown Completed [facility] Influenza Virus Vaccine Quad .5 mL IM 6+ MO (FLUZONE/FLULAVAL/F LUARIX) Unknown Completed [facility] Influenza Virus Vaccine Quad IM, Preserv and ABX Free 6 MO-64 YRS (FLUCELVAX) Unknown Completed [facility] HEPLISAV HEP B, ADULT 2 DOSE, IM Unknown Completed [facility] Influenza Virus Vaccine Unknown Completed [facility] Influenza Virus Vaccine Quad .5 mL IM 6+ MO (FLUZONE/FLULAVAL/F LUARIX) Unknown Completed [facility] Influenza Virus Vaccine Quad IM, Preserv and ABX Free 6 MO-64 YRS (FLUCELVAX) Unknown Completed [facility] HEPLISAV HEP B, ADULT 2 DOSE, IM Unknown Completed [facility] Influenza Virus Vaccine Unknown Completed [facility] Influenza Virus Vaccine Quad .5 mL IM 6+ MO (FLUZONE/FLULAVAL/F LUARIX) Unknown Completed [facility] Influenza Virus Vaccine Quad IM, Preserv and ABX Free 6 MO-64 YRS (FLUCELVAX) Unknown Completed [facility] HEPLISAV HEP B, ADULT 2 DOSE, IM Unknown Completed [facility] Influenza Virus Vaccine Unknown Completed [facility] Influenza Virus Vaccine Quad .5 mL IM 6+ MO (FLUZONE/FLULAVAL/F LUARIX) Unknown Completed [facility] Influenza Virus Vaccine Quad IM, Preserv and ABX Free 6 MO-64 YRS (FLUCELVAX) Unknown Completed [facility] HEPLISAV HEP B, ADULT 2 DOSE, IM Unknown Completed [facility] Influenza Virus Vaccine Unknown Completed [facility] Influenza Virus Vaccine Quad .5 mL IM 6+ MO (FLUZONE/FLULAVAL/F LUARIX) Unknown Completed [facility] Influenza Virus Vaccine Quad IM, Preserv and ABX Free 6 MO-64 YRS (FLUCELVAX) Unknown Completed [facility] HEPLISAV HEP B, ADULT 2 DOSE, IM Unknown Completed [facility] Influenza Virus Vaccine Unknown Completed [facility] Influenza Virus Vaccine Quad .5 mL IM 6+ MO (FLUZONE/FLULAVAL/F LUARIX) Unknown Completed [facility] Influenza Virus Vaccine Quad IM, Preserv and ABX Free 6 MO-64 YRS (FLUCELVAX) Unknown Completed [facility] HEPLISAV HEP B, ADULT 2 DOSE, IM Unknown Completed [facility] Influenza Virus Vaccine Unknown Completed [facility] Influenza Virus Vaccine Quad .5 mL IM 6+ MO (FLUZONE/FLULAVAL/F LUARIX) Unknown Completed [facility] Influenza Virus Vaccine Quad IM, Preserv and ABX Free 6 MO-64 YRS (FLUCELVAX) Unknown Completed [facility] HEPLISAV HEP B, ADULT 2 DOSE, IM Unknown Completed [facility] Influenza Virus Vaccine Unknown Completed [facility] Influenza Virus Vaccine Quad .5 mL IM 6+ MO (FLUZONE/FLULAVAL/F LUARIX) Unknown Completed [facility] Influenza Virus Vaccine Quad IM, Preserv and ABX Free 6 MO-64 YRS (FLUCELVAX) Unknown Completed [facility] HEPLISAV HEP B, ADULT 2 DOSE, IM Unknown Completed [facility] Influenza Virus Vaccine Unknown Completed [facility] Influenza Virus Vaccine Quad .5 mL IM 6+ MO (FLUZONE/FLULAVAL/F LUARIX) Unknown Completed [facility] Influenza Virus Vaccine Quad IM, Preserv and ABX Free 6 MO-64 YRS (FLUCELVAX) Unknown Completed [facility] HEPLISAV HEP B, ADULT 2 DOSE, IM Unknown Completed [facility] Influenza Virus Vaccine Unknown Completed [facility] Influenza Virus Vaccine Quad .5 mL IM 6+ MO (FLUZONE/FLULAVAL/F LUARIX) Unknown Completed [facility] Influenza Virus Vaccine Quad IM, Preserv and ABX Free 6 MO-64 YRS (FLUCELVAX) Unknown Completed [facility] HEPLISAV HEP B, ADULT 2 DOSE, IM Unknown Completed [facility] Influenza Virus Vaccine Unknown Completed [facility] Influenza Virus Vaccine Quad .5 mL IM 6+ MO (FLUZONE/FLULAVAL/F LUARIX) Unknown Completed [facility] Influenza Virus Vaccine Quad IM, Preserv and ABX Free 6 MO-64 YRS (FLUCELVAX) Unknown Completed [facility] HEPLISAV HEP B, ADULT 2 DOSE, IM Unknown Completed [facility] Influenza Virus Vaccine Unknown Completed [facility] Influenza Virus Vaccine Quad .5 mL IM 6+ MO (FLUZONE/FLULAVAL/F LUARIX) Unknown Completed [facility] Influenza Virus Vaccine Quad IM, Preserv and ABX Free 6 MO-64 YRS (FLUCELVAX) Unknown Completed [facility] HEPLISAV HEP B, ADULT 2 DOSE, IM Unknown Completed [facility] Influenza Virus Vaccine Unknown Completed [facility] Influenza Virus Vaccine Quad .5 mL IM 6+ MO (FLUZONE/FLULAVAL/F LUARIX) Unknown Completed [facility] Influenza Virus Vaccine Quad IM, Preserv and ABX Free 6 MO-64 YRS (FLUCELVAX) Unknown Completed [facility] HEPLISAV HEP B, ADULT 2 DOSE, IM Unknown Completed [facility] Influenza Virus Vaccine Unknown Completed [facility] Influenza Virus Vaccine Quad .5 mL IM 6+ MO (FLUZONE/FLULAVAL/F LUARIX) Unknown Completed [facility] Influenza Virus Vaccine Quad IM, Preserv and ABX Free 6 MO-64 YRS (FLUCELVAX) Unknown Completed [facility] HEPLISAV HEP B, ADULT 2 DOSE, IM Unknown Completed [facility] Influenza Virus Vaccine Unknown Completed [facility] Influenza Virus Vaccine Quad .5 mL IM 6+ MO (FLUZONE/FLULAVAL/F LUARIX) Unknown Completed [facility] Influenza Virus Vaccine Quad IM, Preserv and ABX Free 6 MO-64 YRS (FLUCELVAX) Unknown Completed [facility] HEPLISAV HEP B, ADULT 2 DOSE, IM Unknown Completed [facility] Influenza Virus Vaccine Unknown Completed [facility] Influenza Virus Vaccine Quad .5 mL IM 6+ MO (FLUZONE/FLULAVAL/F LUARIX) Unknown Completed [facility] Influenza Virus Vaccine Quad IM, Preserv and ABX Free 6 MO-64 YRS (FLUCELVAX) Unknown Completed [facility] HEPLISAV HEP B, ADULT 2 DOSE, IM Unknown Completed [facility] Influenza Virus Vaccine Unknown Completed [facility] Influenza Virus Vaccine Quad .5 mL IM 6+ MO (FLUZONE/FLULAVAL/F LUARIX) Unknown Completed [facility] Influenza Virus Vaccine Quad IM, Preserv and ABX Free 6 MO-64 YRS (FLUCELVAX) Unknown Completed [facility] HEPLISAV HEP B, ADULT 2 DOSE, IM Unknown Completed [facility] Influenza Virus Vaccine Unknown Completed [facility] Influenza Virus Vaccine Quad .5 mL IM 6+ MO (FLUZONE/FLULAVAL/F LUARIX) Unknown Completed [facility] Influenza Virus Vaccine Quad IM, Preserv and ABX Free 6 MO-64 YRS (FLUCELVAX) Unknown Completed [facility] HEPLISAV HEP B, ADULT 2 DOSE, IM Unknown Completed [facility] Influenza Virus Vaccine Unknown Completed [facility] Influenza Virus Vaccine Quad .5 mL IM 6+ MO (FLUZONE/FLULAVAL/F LUARIX) Unknown Completed [facility] Influenza Virus Vaccine Quad IM, Preserv and ABX Free 6 MO-64 YRS (FLUCELVAX) Unknown Completed [facility] HEPLISAV HEP B, ADULT 2 DOSE, IM Unknown Completed [facility] Influenza Virus Vaccine Unknown Completed [facility] Influenza Virus Vaccine Quad .5 mL IM 6+ MO (FLUZONE/FLULAVAL/F LUARIX) Unknown Completed [facility] Influenza Virus Vaccine Quad IM, Preserv and ABX Free 6 MO-64 YRS (FLUCELVAX) Unknown Completed [facility] HEPLISAV HEP B, ADULT 2 DOSE, IM Unknown Completed [facility] Influenza Virus Vaccine Unknown Completed [facility] Influenza Virus Vaccine Quad .5 mL IM 6+ MO (FLUZONE/FLULAVAL/F LUARIX) Unknown Completed [facility] Influenza Virus Vaccine Quad IM, Preserv and ABX Free 6 MO-64 YRS (FLUCELVAX) Unknown Completed [facility] HEPLISAV HEP B, ADULT 2 DOSE, IM Unknown Completed [facility] Influenza Virus Vaccine Unknown Completed [facility] Influenza Virus Vaccine Quad .5 mL IM 6+ MO (FLUZONE/FLULAVAL/F LUARIX) Unknown Completed [facility] Influenza Virus Vaccine Quad IM, Preserv and ABX Free 6 MO-64 YRS (FLUCELVAX) Unknown Completed [facility] HEPLISAV HEP B, ADULT 2 DOSE, IM Unknown Completed [facility] Influenza Virus Vaccine Unknown Completed [facility] Influenza Virus Vaccine Quad .5 mL IM 6+ MO (FLUZONE/FLULAVAL/F LUARIX) Unknown Completed [facility] Influenza Virus Vaccine Quad IM, Preserv and ABX Free 6 MO-64 YRS (FLUCELVAX) Unknown Completed [facility] HEPLISAV HEP B, ADULT 2 DOSE, IM Unknown Completed [facility] Influenza Virus Vaccine Unknown Completed [facility] Influenza Virus Vaccine Quad .5 mL IM 6+ MO (FLUZONE/FLULAVAL/F LUARIX) Unknown Completed [facility] Influenza Virus Vaccine Quad IM, Preserv and ABX Free 6 MO-64 YRS (FLUCELVAX) Unknown Completed [facility] HEPLISAV HEP B, ADULT 2 DOSE, IM Unknown Completed [facility] Influenza Virus Vaccine Unknown Completed [facility] Influenza Virus Vaccine Quad .5 mL IM 6+ MO (FLUZONE/FLULAVAL/F LUARIX) Unknown Completed [facility] Influenza Virus Vaccine Quad IM, Preserv and ABX Free 6 MO-64 YRS (FLUCELVAX) Unknown Completed [facility] HEPLISAV HEP B, ADULT 2 DOSE, IM Unknown Completed [facility] Influenza Virus Vaccine Unknown Completed [facility] Influenza Virus Vaccine Quad .5 mL IM 6+ MO (FLUZONE/FLULAVAL/F LUARIX) Unknown Completed [facility] Influenza Virus Vaccine Quad IM, Preserv and ABX Free 6 MO-64 YRS (FLUCELVAX) Unknown Completed [facility] HEPLISAV HEP B, ADULT 2 DOSE, IM Unknown Completed [facility] Influenza Virus Vaccine Unknown Completed [facility] Influenza Virus Vaccine Quad .5 mL IM 6+ MO (FLUZONE/FLULAVAL/F LUARIX) Unknown Completed [facility] Influenza Virus Vaccine Quad IM, Preserv and ABX Free 6 MO-64 YRS (FLUCELVAX) Unknown Completed [facility] HEPLISAV HEP B, ADULT 2 DOSE, IM Unknown Completed [facility] Influenza Virus Vaccine Unknown Completed [facility] Influenza Virus Vaccine Quad .5 mL IM 6+ MO (FLUZONE/FLULAVAL/F LUARIX) Unknown Completed [facility] Influenza Virus Vaccine Quad IM, Preserv and ABX Free 6 MO-64 YRS (FLUCELVAX) Unknown Completed [facility] HEPLISAV HEP B, ADULT 2 DOSE, IM Unknown Completed [facility] Influenza Virus Vaccine Unknown Completed [facility] Influenza Virus Vaccine Quad .5 mL IM 6+ MO (FLUZONE/FLULAVAL/F LUARIX) Unknown Completed [facility] Influenza Virus Vaccine Quad IM, Preserv and ABX Free 6 MO-64 YRS (FLUCELVAX) Unknown Completed [facility] HEPLISAV HEP B, ADULT 2 DOSE, IM Unknown Completed [facility] Influenza Virus Vaccine Unknown Completed [facility] Influenza Virus Vaccine Quad .5 mL IM 6+ MO (FLUZONE/FLULAVAL/F LUARIX) Unknown Completed [facility] Influenza Virus Vaccine Quad IM, Preserv and ABX Free 6 MO-64 YRS (FLUCELVAX) Unknown Completed [facility] HEPLISAV HEP B, ADULT 2 DOSE, IM Unknown Completed [facility] Influenza Virus Vaccine Unknown Completed [facility] Influenza Virus Vaccine Quad .5 mL IM 6+ MO (FLUZONE/FLULAVAL/F LUARIX) Unknown Completed [facility] Influenza Virus Vaccine Quad IM, Preserv and ABX Free 6 MO-64 YRS (FLUCELVAX) Unknown Completed [facility] HEPLISAV HEP B, ADULT 2 DOSE, IM Unknown Completed [facility] Influenza Virus Vaccine Unknown Completed [facility] Influenza Virus Vaccine Quad .5 mL IM 6+ MO (FLUZONE/FLULAVAL/F LUARIX) Unknown Completed [facility] Influenza Virus Vaccine Quad IM, Preserv and ABX Free 6 MO-64 YRS (FLUCELVAX) Unknown Completed [facility] HEPLISAV HEP B, ADULT 2 DOSE, IM Unknown Completed [facility] Influenza Virus Vaccine Unknown Completed [facility] Influenza Virus Vaccine Quad .5 mL IM 6+ MO (FLUZONE/FLULAVAL/F LUARIX) Unknown Completed [facility] Influenza Virus Vaccine Quad IM, Preserv and ABX Free 6 MO-64 YRS (FLUCELVAX) Unknown Completed [facility] HEPLISAV HEP B, ADULT 2 DOSE, IM Unknown Completed [facility] Influenza Virus Vaccine Unknown Completed [facility] Influenza Virus Vaccine Quad .5 mL IM 6+ MO (FLUZONE/FLULAVAL/F LUARIX) Unknown Completed [facility] Influenza Virus Vaccine Quad IM, Preserv and ABX Free 6 MO-64 YRS (FLUCELVAX) Unknown Completed [facility] HEPLISAV HEP B, ADULT 2 DOSE, IM Unknown Completed [facility] Influenza Virus Vaccine Unknown Completed [facility] Influenza Virus Vaccine Quad .5 mL IM 6+ MO (FLUZONE/FLULAVAL/F LUARIX) Unknown Completed [facility] Influenza Virus Vaccine Quad IM, Preserv and ABX Free 6 MO-64 YRS (FLUCELVAX) Unknown Completed [facility] HEPLISAV HEP B, ADULT 2 DOSE, IM Unknown Completed [facility] Influenza Virus Vaccine Unknown Completed [facility] Influenza Virus Vaccine Quad .5 mL IM 6+ MO (FLUZONE/FLULAVAL/F LUARIX) Unknown Completed [facility] Influenza Virus Vaccine Quad IM, Preserv and ABX Free 6 MO-64 YRS (FLUCELVAX) Unknown Completed [facility] HEPLISAV HEP B, ADULT 2 DOSE, IM Unknown Completed [facility] Influenza Virus Vaccine Unknown Completed [facility] Influenza Virus Vaccine Quad .5 mL IM 6+ MO (FLUZONE/FLULAVAL/F LUARIX) Unknown Completed [facility] Influenza Virus Vaccine Quad IM, Preserv and ABX Free 6 MO-64 YRS (FLUCELVAX) Unknown Completed [facility] HEPLISAV HEP B, ADULT 2 DOSE, IM Unknown Completed [facility] Influenza Virus Vaccine Unknown Completed [facility] Influenza Virus Vaccine Quad .5 mL IM 6+ MO (FLUZONE/FLULAVAL/F LUARIX) Unknown Completed [facility] Influenza Virus Vaccine Quad IM, Preserv and ABX Free 6 MO-64 YRS (FLUCELVAX) Unknown Completed [facility] HEPLISAV HEP B, ADULT 2 DOSE, IM Unknown Completed [facility] Influenza Virus Vaccine Unknown Completed [facility] Influenza Virus Vaccine Quad .5 mL IM 6+ MO (FLUZONE/FLULAVAL/F LUARIX) Unknown Completed [facility] Influenza Virus Vaccine Quad IM, Preserv and ABX Free 6 MO-64 YRS (FLUCELVAX) Unknown Completed [facility] HEPLISAV HEP B, ADULT 2 DOSE, IM Unknown Completed [facility] Influenza Virus Vaccine Unknown Completed [facility] Influenza Virus Vaccine Quad .5 mL IM 6+ MO (FLUZONE/FLULAVAL/F LUARIX) Unknown Completed [facility] Influenza Virus Vaccine Quad IM, Preserv and ABX Free 6 MO-64 YRS (FLUCELVAX) Unknown Completed [facility] HEPLISAV HEP B, ADULT 2 DOSE, IM Unknown Completed [facility] Influenza Virus Vaccine Unknown Completed [facility] Influenza Virus Vaccine Quad .5 mL IM 6+ MO (FLUZONE/FLULAVAL/F LUARIX) Unknown Completed [facility] Influenza Virus Vaccine Quad IM, Preserv and ABX Free 6 MO-64 YRS (FLUCELVAX) Unknown Completed [facility] HEPLISAV HEP B, ADULT 2 DOSE, IM Unknown Completed [facility] Influenza Virus Vaccine Unknown Completed [facility] Influenza Virus Vaccine Quad .5 mL IM 6+ MO (FLUZONE/FLULAVAL/F LUARIX) Unknown Completed [facility] Influenza Virus Vaccine Quad IM, Preserv and ABX Free 6 MO-64 YRS (FLUCELVAX) Unknown Completed [facility] HEPLISAV HEP B, ADULT 2 DOSE, IM Unknown Completed [facility] Influenza Virus Vaccine Unknown Completed [facility] Influenza Virus Vaccine Quad .5 mL IM 6+ MO (FLUZONE/FLULAVAL/F LUARIX) Unknown Completed [facility] Influenza Virus Vaccine Quad IM, Preserv and ABX Free 6 MO-64 YRS (FLUCELVAX) Unknown Completed [facility] HEPLISAV HEP B, ADULT 2 DOSE, IM Unknown Completed [facility] Influenza Virus Vaccine Unknown Completed [facility] Influenza Virus Vaccine Quad .5 mL IM 6+ MO (FLUZONE/FLULAVAL/F LUARIX) Unknown Completed [facility] Influenza Virus Vaccine Quad IM, Preserv and ABX Free 6 MO-64 YRS (FLUCELVAX) Unknown Completed [facility] HEPLISAV HEP B, ADULT 2 DOSE, IM Unknown Completed [facility] Influenza Virus Vaccine Unknown Completed [facility] Influenza Virus Vaccine Quad .5 mL IM 6+ MO (FLUZONE/FLULAVAL/F LUARIX) Unknown Completed [facility] Influenza Virus Vaccine Quad IM, Preserv and ABX Free 6 MO-64 YRS (FLUCELVAX) Unknown Completed [facility] HEPLISAV HEP B, ADULT 2 DOSE, IM Unknown Completed [facility] Influenza Virus Vaccine Unknown Completed [facility] Influenza Virus Vaccine Quad .5 mL IM 6+ MO (FLUZONE/FLULAVAL/F LUARIX) Unknown Completed [facility] Influenza Virus Vaccine Quad IM, Preserv and ABX Free 6 MO-64 YRS (FLUCELVAX) Unknown Completed [facility] HEPLISAV HEP B, ADULT 2 DOSE, IM Unknown Completed [facility] Influenza Virus Vaccine Unknown Completed [facility] Influenza Virus Vaccine Quad .5 mL IM 6+ MO (FLUZONE/FLULAVAL/F LUARIX) Unknown Completed [facility] Influenza Virus Vaccine Quad IM, Preserv and ABX Free 6 MO-64 YRS (FLUCELVAX) Unknown Completed [facility] HEPLISAV HEP B, ADULT 2 DOSE, IM Unknown Completed [facility] Influenza Virus Vaccine Unknown Completed [facility] Influenza Virus Vaccine Quad .5 mL IM 6+ MO (FLUZONE/FLULAVAL/F LUARIX) Unknown Completed [facility] Influenza Virus Vaccine Quad IM, Preserv and ABX Free 6 MO-64 YRS (FLUCELVAX) Unknown Completed [facility] HEPLISAV HEP B, ADULT 2 DOSE, IM Unknown Completed [facility] Influenza Virus Vaccine Unknown Completed [facility] Influenza Virus Vaccine Quad .5 mL IM 6+ MO (FLUZONE/FLULAVAL/F LUARIX) Unknown Completed [facility] Influenza Virus Vaccine Quad IM, Preserv and ABX Free 6 MO-64 YRS (FLUCELVAX) Unknown Completed [facility] HEPLISAV HEP B, ADULT 2 DOSE, IM Unknown Completed [facility] Influenza Virus Vaccine Unknown Completed [facility] Influenza Virus Vaccine Quad .5 mL IM 6+ MO (FLUZONE/FLULAVAL/F LUARIX) Unknown Completed [facility] Influenza Virus Vaccine Quad IM, Preserv and ABX Free 6 MO-64 YRS (FLUCELVAX) Unknown Completed [facility] Vital Signs Vital Name Observation Time Observation Value Comments S ource Systolic blood pressure 2024-05-10 20:53:00 178 mm[Hg] [facility] Diastolic blood pressure 2024-05-10 20:53:00 81 mm[Hg] [facility] Heart rate 2024-05-10 20:49:00 84 /min [facility] Respiratory rate 2024-05-10 20:49:00 19 /min [facility] Body height 2024-05-10 20:49:00 167.6 cm [facility] Body weight 2024-05-10 20:49:00 92.08 kg [facility] BMI 2024-05-10 20:49:00 32.77 kg/m2 [facility] Oxygen saturation in Arterial blood by Pulse oximetry 2024-05-10 20:49:00 96 /min [facility] Systolic blood pressure 2024-04-13 16:42:00 161 mm[Hg] [facility] Diastolic blood pressure 2024-04-13 16:42:00 92 mm[Hg] [facility] Heart rate 2024-04-13 16:35:00 80 /min [facility] Respiratory rate 2024-04-13 16:35:00 18 /min obs [facility] Body height 2024-04-13 16:35:[address] [facility] Body weight 2024-04-13 16:35:[address] [facility] BMI 2024-04-13 16:35:00 32.39 kg/m2 [facility] Oxygen saturation in Arterial blood by Pulse oximetry 2024-04-13 16:35:00 97 /min [facility] Systolic blood pressure 2024-04-11 19:56:00 135 mm[Hg] [facility] Diastolic blood pressure 2024-04-11 19:56:00 98 mm[Hg] [facility] Heart rate 2024-04-11 19:56:00 81 /min [facility] Body temperature 2024-04-11 19:56:[address] [facility] Body height 2024-04-11 19:56:[address] [facility] Body weight 2024-04-11 19:56:00 90.266 kg [facility] BMI 2024-04-11 19:56:00 32.12 kg/m2 [facility] Systolic blood pressure 2024-03-14 20:09:00 164 mm[Hg] [facility] Diastolic blood pressure 2024-03-14 20:09:00 88 mm[Hg] [facility] Heart rate 2024-03-14 20:08:00 103 /min [facility] Body weight 2024-03-14 20:08:[address] [facility] BMI 2024-03-14 20:08:00 31.80 kg/m2 [facility] Systolic blood pressure 2024-03-10 23:10:00 175 mm[Hg] [facility] Diastolic blood pressure 2024-03-10 23:10:00 70 mm[Hg] [facility] Heart rate 2024-03-10 23:10:00 72 /min [facility] Body temperature 2024-03-10 23:10:[address] [facility] Respiratory rate 2024-03-10 23:10:00 14 /min [facility] Oxygen saturation in Arterial blood by Pulse oximetry 2024-03-10 23:10:00 96 /min [facility] Systolic blood pressure 2024-03-10 22:35:00 175 mm[Hg] [facility] Diastolic blood pressure 2024-03-10 22:35:00 65 mm[Hg] [facility] Heart rate 2024-03-10 22:35:00 71 /min [facility] Respiratory rate 2024-03-10 22:35:00 11 /min [facility] Oxygen saturation in Arterial blood by Pulse oximetry 2024-03-10 22:35:00 92 /min [facility] Body temperature 2024-03-10 22:02:[address] [facility] Systolic blood pressure 2024-03-08 16:20:00 158 mm[Hg] [facility] Diastolic blood pressure 2024-03-08 16:20:00 71 mm[Hg] [facility] Heart rate 2024-03-08 16:16:00 73 /min [facility] Respiratory rate 2024-03-08 16:16:00 18 /min [facility] Body height 2024-03-08 16:16:00 167.6 cm [facility] Body weight 2024-03-08 16:16:00 91.173 kg [facility] BMI 2024-03-08 16:16:00 32.44 kg/m2 [facility] Systolic blood pressure 2024-03-02 20:05:00 149 mm[Hg] [facility] Diastolic blood pressure 2024-03-02 20:05:00 79 mm[Hg] [facility] Heart rate 2024-03-02 20:05:00 80 /min [facility] Oxygen saturation in Arterial blood by Pulse oximetry 2024-03-02 20:05:00 96 /min [facility] Body temperature 2024-03-02 20:04:[address] [facility] Respiratory rate 2024-03-02 20:04:00 20 /min [facility] Body height 2024-03-02 20:04:00 167.6 cm [facility] Body weight 2024-03-02 20:04:00 92.08 kg [facility] BMI 2024-03-02 20:04:00 32.77 kg/m2 [facility] Systolic blood pressure 2024-03-01 21:10:00 146 mm[Hg] [facility] Diastolic blood pressure 2024-03-01 21:10:00 74 mm[Hg] [facility] Heart rate 2024-03-01 21:10:00 67 /min [facility] Oxygen saturation in Arterial blood by Pulse oximetry 2024-03-01 21:10:00 94 /min [facility] Systolic blood pressure 2024-03-01 20:55:00 160 mm[Hg] [facility] Diastolic blood pressure 2024-03-01 20:55:00 72 mm[Hg] [facility] Heart rate 2024-03-01 20:55:00 72 /min [facility] Oxygen saturation in Arterial blood by Pulse oximetry 2024-03-01 20:55:00 91 /min [facility] Systolic blood pressure 2024-03-01 20:45:00 124 mm[Hg] [facility] Diastolic blood pressure 2024-03-01 20:45:00 107 mm[Hg] [facility] Heart rate 2024-03-01 20:45:00 77 /min [facility] Respiratory rate 2024-03-01 20:45:00 15 /min [facility] Oxygen saturation in Arterial blood by Pulse oximetry 2024-03-01 20:45:00 100 /min [facility] Body temperature 2024-03-01 19:53:[address] [facility] Body height 2024-03-01 19:53:00 167.6 cm [facility] Body weight 2024-03-01 19:53:00 91.627 kg [facility] BMI 2024-03-01 19:53:00 32.60 kg/m2 [facility] Systolic blood pressure 2024-02-03 19:24:00 168 mm[Hg] [facility] Diastolic blood pressure 2024-02-03 19:24:00 76 mm[Hg] [facility] Heart rate 2024-02-03 19:24:00 85 /min [facility] Oxygen saturation in Arterial blood by Pulse oximetry 2024-02-03 19:24:00 97 /min [facility] Body temperature 2024-02-03 19:18:[address] [facility] Respiratory rate 2024-02-03 19:18:00 16 /min [facility] Body height 2024-02-03 19:18:00 167.6 cm [facility] Body weight 2024-02-03 19:18:00 91.627 kg [facility] BMI 2024-02-03 19:18:00 32.60 kg/m2 [facility] Systolic blood pressure 2024-01-03 08:00:00 161 mm[Hg] [facility] Diastolic blood pressure 2024-01-03 08:00:00 62 mm[Hg] [facility] Respiratory rate 2024-01-03 08:00:00 16 /min [facility] Heart rate 2024-01-03 07:00:00 79 [facility] Oxygen saturation in Arterial blood by Pulse oximetry 2024-01-03 07:00:00 100 /min [facility] Body temperature 2024-01-03 05:00:[address] [facility] Body height 2024-01-03 05:00:[address] [facility] Body weight 2024-01-03 05:00:[address] [facility] BMI 2024-01-03 05:00:00 31.64 kg/m2 [facility] Systolic blood pressure 2023-12-24 13:15:00 168 mm[Hg] [facility] Diastolic blood pressure 2023-12-24 13:15:00 74 mm[Hg] [facility] Heart rate 2023-12-24 13:12:00 67 /min [facility] Body height 2023-12-24 13:12:00 167.6 cm [facility] Body weight 2023-12-24 13:12:00 90.765 kg [facility] BMI 2023-12-24 13:12:00 32.30 kg/m2 [facility] Oxygen saturation in Arterial blood by Pulse oximetry 2023-12-24 13:12:00 100 /min [facility] Body temperature 2023-12-16 21:32:[address] [facility] Body weight 2023-12-16 21:32:00 86.183 kg [facility] BMI 2023-12-16 21:32:00 30.67 kg/m2 [facility] Systolic blood pressure 2023-12-04 15:56:00 147 mm[Hg] [facility] Diastolic blood pressure 2023-12-04 15:56:00 72 mm[Hg] [facility] Heart rate 2023-12-04 15:54:00 96 /min [facility] Body height 2023-12-04 15:54:00 167.6 cm [facility] Body weight 2023-12-04 15:54:00 92.08 kg [facility] BMI 2023-12-04 15:54:00 32.77 kg/m2 [facility] Oxygen saturation in Arterial blood by Pulse oximetry 2023-12-04 15:54:00 98 /min [facility] Body temperature 2023-12-02 21:40:[address] [facility] Body height 2023-12-02 21:40:00 167.6 cm [facility] Body weight 2023-12-02 21:40:00 91.536 kg [facility] BMI 2023-12-02 21:40:00 32.57 kg/m2 [facility] Body temperature 2023-10-28 21:02:[address] [facility] Body weight 2023-10-28 21:02:00 92.987 kg [facility] BMI 2023-10-28 21:02:00 33.09 kg/m2 [facility] Systolic blood pressure 2023-10-23 16:00:00 147 mm[Hg] [facility] Diastolic blood pressure 2023-10-23 16:00:00 66 mm[Hg] [facility] Heart rate 2023-10-23 16:00:00 66 /min [facility] Respiratory rate 2023-10-23 16:00:00 13 /min [facility] Oxygen saturation in Arterial blood by Pulse oximetry 2023-10-23 16:00:00 96 /min [facility] Body temperature 2023-10-23 13:00:[address] [facility] Body weight 2023-10-23 08:21:00 91.491 kg [facility] BMI 2023-10-23 08:21:00 32.56 kg/m2 [facility] Body height 2023-10-22 21:17:00 167.6 cm [facility] Systolic blood pressure 2023-10-16 13:12:00 136 mm[Hg] [facility] Diastolic blood pressure 2023-10-16 13:12:00 70 mm[Hg] [facility] Heart rate 2023-10-16 13:12:00 103 /min [facility] Respiratory rate 2023-10-16 13:12:00 18 /min [facility] Body weight 2023-10-16 13:12:00 92.579 kg [facility] BMI 2023-10-16 13:12:00 32.94 kg/m2 [facility] Oxygen saturation in Arterial blood by Pulse oximetry 2023-10-16 13:12:00 98 /min [facility] Systolic blood pressure 2023-10-05 07:52:00 152 mm[Hg] [facility] Diastolic blood pressure 2023-10-05 07:52:00 62 mm[Hg] [facility] Heart rate 2023-10-05 07:52:00 78 /min [facility] Body temperature 2023-10-05 07:52:[address] [facility] Respiratory rate 2023-10-05 07:52:00 16 /min [facility] Oxygen saturation in Arterial blood by Pulse oximetry 2023-10-05 07:52:00 99 /min [facility] Body height 2023-10-05 04:01:[address] [facility] Body weight 2023-10-05 04:01:00 92.534 kg [facility] BMI 2023-10-05 04:01:00 32.93 kg/m2 [facility] Systolic blood pressure 2023-09-30 18:42:00 143 mm[Hg] [facility] Diastolic blood pressure 2023-09-30 18:42:00 74 mm[Hg] [facility] Heart rate 2023-09-30 18:42:00 89 /min [facility] Body height 2023-09-30 18:42:00 167.6 cm [facility] Body weight 2023-09-30 18:42:00 94.53 kg [facility] BMI 2023-09-30 18:42:00 33.64 kg/m2 [facility] Oxygen saturation in Arterial blood by Pulse oximetry 2023-09-30 18:42:00 99 /min [facility] Systolic blood pressure 2023-09-01 20:11:00 93 mm[Hg] [facility] Diastolic blood pressure 2023-09-01 20:11:00 49 mm[Hg] [facility] Heart rate 2023-09-01 20:11:00 86 /min [facility] Body height 2023-09-01 20:11:00 167.6 cm [facility] Body weight 2023-09-01 20:11:00 96.798 kg [facility] BMI 2023-09-01 20:11:00 34.44 kg/m2 [facility] Oxygen saturation in Arterial blood by Pulse oximetry 2023-09-01 20:11:00 99 /min [facility] Systolic blood pressure 2023-08-10 18:10:00 145 mm[Hg] [facility] Diastolic blood pressure 2023-08-10 18:10:00 60 mm[Hg] [facility] Heart rate 2023-08-10 18:10:00 96 /min [facility] Body temperature 2023-08-10 18:10:[address] [facility] Body height 2023-08-10 18:10:00 167.6 cm [facility] Body weight 2023-08-10 18:10:[address] [facility] BMI 2023-08-10 18:10:00 33.80 kg/m2 [facility] Systolic blood pressure 2023-07-14 14:43:00 125 mm[Hg] [facility] Diastolic blood pressure 2023-07-14 14:43:00 67 mm[Hg] [facility] Heart rate 2023-07-14 14:43:00 90 /min [facility] Body height 2023-07-14 14:43:[address] [facility] Body weight 2023-07-14 14:43:[address] [facility] BMI 2023-07-14 14:43:00 34.67 kg/m2 [facility] Oxygen saturation in Arterial blood by Pulse oximetry 2023-07-14 14:43:00 100 /min [facility] Body temperature 2023-06-01 19:53:[address] [facility] Body height 2023-06-01 19:53:00 167.6 cm [facility] Body weight 2023-06-01 19:53:00 98.022 kg [facility] BMI 2023-06-01 19:53:00 34.88 kg/m2 [facility] Systolic blood pressure 2023-05-22 14:03:00 151 mm[Hg] [facility] Diastolic blood pressure 2023-05-22 14:03:00 78 mm[Hg] [facility] Heart rate 2023-05-22 14:03:00 84 /min [facility] Body temperature 2023-05-22 14:03:[address] [facility] Respiratory rate 2023-05-22 14:03:00 20 /min [facility] Oxygen saturation in Arterial blood by Pulse oximetry 2023-05-22 14:03:00 94 /min [facility] Body height 2023-05-20 13:03:[address] [facility] Body weight 2023-05-20 13:03:[address] [facility] BMI 2023-05-20 13:03:00 32.52 kg/m2 [facility] Systolic blood pressure 2023-05-20 19:15:00 145 mm[Hg] [facility] Diastolic blood pressure 2023-05-20 19:15:00 62 mm[Hg] [facility] Heart rate 2023-05-20 19:15:00 74 /min [facility] Respiratory rate 2023-05-20 19:15:00 12 /min [facility] Oxygen saturation in Arterial blood by Pulse oximetry 2023-05-20 19:15:00 99 /min [facility] Body temperature 2023-05-20 18:35:[address] [facility] Body height 2023-05-20 13:03:[address] [facility] Body weight 2023-05-20 13:03:[address] [facility] BMI 2023-05-20 13:03:00 32.52 kg/m2 Univ [facility] Systolic blood pressure 2023-04-23 16:54:00 137 mm[Hg] [facility] Diastolic blood pressure 2023-04-23 16:54:00 64 mm[Hg] [facility] Heart rate 2023-04-23 16:54:00 97 /min [facility] Body temperature 2023-04-23 16:54:[address] [facility] Body height 2023-04-23 16:54:00 167.6 cm [facility] Body weight 2023-04-23 16:54:[address] [facility] BMI 2023-04-23 16:54:00 35.35 kg/m2 [facility] Oxygen saturation in Arterial blood by Pulse oximetry 2023-04-23 16:54:00 98 /min [facility] Body temperature 2023-04-13 20:04:[address] [facility] Body weight 2023-04-13 20:04:00 102.513 kg [facility] BMI 2023-04-13 20:04:00 36.48 kg/m2 Univ [facility] Body weight 2023-03-06 15:41:[address] [facility] BMI 2023-03-06 15:41:00 36.33 kg/m2 Univ [facility] Systolic blood pressure 2023-02-26 17:59:00 142 mm[Hg] [facility] Diastolic blood pressure 2023-02-26 17:59:00 80 mm[Hg] [facility] Heart rate 2023-02-26 17:59:00 83 /min [facility] Body height 2023-02-26 17:59:00 167.6 cm [facility] Body weight 2023-02-26 17:59:00 101.288 kg [facility] BMI 2023-02-26 17:59:00 36.04 kg/m2 [facility] Systolic blood pressure 2022-12-19 15:23:00 155 mm[Hg] [facility] Diastolic blood pressure 2022-12-19 15:23:00 72 mm[Hg] [facility] Heart rate 2022-12-19 15:23:00 76 /min [facility] Oxygen saturation in Arterial blood by Pulse oximetry 2022-12-19 15:23:00 99 /min [facility] Body temperature 2022-12-19 15:21:[address] [facility] Respiratory rate 2022-12-19 15:21:00 18 /min [facility] Body height 2022-12-19 15:21:00 167.6 cm [facility] Body weight 2022-12-19 15:21:00 102.059 kg [facility] BMI 2022-12-19 15:21:00 36.32 kg/m2 [facility] Systolic blood pressure 2022-12-10 17:16:00 148 mm[Hg] [facility] Diastolic blood pressure 2022-12-10 17:16:00 72 mm[Hg] [facility] Heart rate 2022-12-10 17:16:00 89 /min [facility] Respiratory rate 2022-12-10 17:16:00 14 /min [facility] Oxygen saturation in Arterial blood by Pulse oximetry 2022-12-10 17:16:00 99 /min [facility] Body temperature 2022-12-10 14:38:[address] [facility] Body height 2022-12-10 14:38:00 167.6 cm [facility] Body weight 2022-12-10 14:38:00 100.245 kg [facility] BMI 2022-12-10 14:38:00 35.67 kg/m2 [facility] Systolic blood pressure 2022-11-13 12:12:00 112 mm[Hg] [facility] Diastolic blood pressure 2022-11-13 12:12:00 81 mm[Hg] [facility] Heart rate 2022-11-13 12:12:00 79 /min [facility] Body temperature 2022-11-13 12:12:[address] [facility] Respiratory rate 2022-11-13 12:12:00 16 /min [facility] Oxygen saturation in Arterial blood by Pulse oximetry 2022-11-13 12:12:00 98 /min [facility] Body weight 2022-11-13 02:15:00 100.245 kg [facility] BMI 2022-11-13 02:15:00 35.67 kg/m2 Univ [facility] Body height 2022-11-12 01:58:[address] [facility] Systolic blood pressure 2022-10-05 20:24:46 154 mm[Hg] [facility] Diastolic blood pressure 2022-10-05 20:24:46 55 mm[Hg] [facility] Heart rate 2022-10-05 20:24:46 68 /min [facility] Respiratory rate 2022-10-05 20:24:46 18 /min [facility] Oxygen saturation in Arterial blood by Pulse oximetry 2022-10-05 20:24:46 98 /min [facility] Body temperature 2022-10-05 18:31:[address] [facility] Body weight 2022-10-05 18:31:[address] [facility] BMI 2022-10-05 18:31:00 35.67 kg/m2 Univ [facility] Systolic blood pressure 2022-09-30 14:07:00 141 mm[Hg] [facility] Diastolic blood pressure 2022-09-30 14:07:00 80 mm[Hg] [facility] Heart rate 2022-09-30 14:07:00 79 /min [facility] Body height 2022-09-30 14:07:00 167.6 cm [facility] Body weight 2022-09-30 14:07:[address] [facility] BMI 2022-09-30 14:07:00 35.69 kg/m2 Univ [facility] Systolic blood pressure 2022-03-28 15:49:00 135 mm[Hg] [facility] Diastolic blood pressure 2022-03-28 15:49:00 80 mm[Hg] [facility] Heart rate 2022-03-28 15:49:00 87 /min [facility] Body weight 2022-03-28 15:49:[address] [facility] BMI 2022-03-28 15:49:00 36.46 kg/m2 [facility] Oxygen saturation in Arterial blood by Pulse oximetry 2022-03-28 15:49:00 96 /min [facility] Systolic blood pressure 2022-03-11 16:21:00 148 mm[Hg] [facility] Diastolic blood pressure 2022-03-11 16:21:00 73 mm[Hg] [facility] Heart rate 2022-03-11 16:19:00 81 /min [facility] Body height 2022-03-11 16:19:00 167.6 cm [facility] Body weight 2022-03-11 16:19:00 101.833 kg [facility] BMI 2022-03-11 16:19:00 36.24 kg/m2 [facility] Oxygen saturation in Arterial blood by Pulse oximetry 2022-03-11 16:19:00 97 /min [facility] Systolic blood pressure 2024-04-11 19:56:00 135 mm[Hg] [facility] Diastolic blood pressure 2024-04-11 19:56:00 98 mm[Hg] [facility] Heart rate 2024-04-11 19:56:00 81 /min [facility] Body temperature 2024-04-11 19:56:[address] [facility] Body height 2024-04-11 19:56:00 167.6 cm [facility] Body weight 2024-04-11 19:56:00 90.266 kg [facility] BMI 2024-04-11 19:56:00 32.12 kg/m2 [facility] Respiratory rate 2024-03-10 23:10:00 14 /min [facility] Oxygen saturation in Arterial blood by Pulse oximetry 2024-03-10 23:10:00 96 /min [facility] Procedures Procedure Date / Time Performed Performing Clinician Source THO,POST-VOID RES,US,NON-IMAGING 2024-04-13 16:41:[address] [facility] POCT URINALYSIS AUTO 2024-04-13 16:33:[address] [facility] PHYSICIAN ORDERS 2024-04-06 18:51:40 Doctor Cynthia signed, Aleneva [facility] CBC WITH DIFF 2024-04-05 21:19:00 [facility] COMP. METABOLIC PANEL (83009) 2024-04-05 21:19:[address] [facility] TRANSFERRIN 2024-04-05 21:19:00 [facility] FERRITIN SERUM 2024-04-05 21:19:00 Margret Givens [facility] IRON PANEL 2024-04-05 21:19:00 Chon [facility] POCT GLUCOSE (AUTOMATED) 2024-03-10 22:09:00 Eb [facility] POCT GLUCOSE (AUTOMATED) 2024-03-10 22:09:00 Eb [facility] POCT GLUCOSE (AUTOMATED) 2024-03-10 22:09:00 Eb [facility] URINE CULTURE 2024-03-10 21:16:00 [facility] INTUBATION 2024-03-10 20:54:00 Leon [facility] INTUBATION 2024-03-10 20:54:00 Trinchera [facility] [id number] - [place] LASER ENUCLEATION PROSTATE W/MORCELLATION 2024-03-10 20:24:00 Eb [facility] [id number] - [place] LASER ENUCLEATION PROSTATE W/MORCELLATION 2024-03-10 20:24:00 Eb [facility] SURGICAL PATHOLOGY EXAM 2024-03-10 19:13:[address] [facility] POCT GLUCOSE (AUTOMATED) 2024-03-10 17:04:00 Eb [facility] POCT GLUCOSE (AUTOMATED) 2024-03-10 17:04:00 Eb [facility] POCT GLUCOSE (AUTOMATED) 2024-03-10 17:04:00 [facility] CBC WITH DIFF 2024-03-02 22:47:00 [facility] COMP[facility] METABOLIC PANEL ([id number]) 2024-03-02 22:47:00 [facility] THO,POST-VOID RES,US,NON-IMAGING 2024-03-02 22:16:00 [facility] THO,POST-VOID RES,US,NON-IMAGING 2024-03-02 22:16:00 [facility] URINE CULTURE 2024-03-02 21:57:00 [facility] URINE CULTURE 2024-03-02 21:57:00 [facility] POCT URINALYSIS AUTO 2024-03-02 00:00:00 Evelyn [facility] POCT URINALYSIS AUTO 2024-03-02 00:00[facility]00 [facility] [place] TIME OR (NON-REPORTABLE) 2024-03-01 20:47:[address] [facility] [place] TIME OR (NON-REPORTABLE) 2024-03-01 20:47:[address] [facility] POCT GLUCOSE (AUTOMATED) 2024-03-01 20:12:[address] [facility] POCT GLUCOSE (AUTOMATED) 2024-03-01 20:12:[address] [facility] PHYSICIAN ORDERS 2024-02-12 17:03:14 Doctor Unas signed, Alen[place] [facility] URINALYSIS 2024-02-10 16:42:00 Allen Wheeler [facility] URINE CULTURE 2024-02-10 16:42:00 Allen Wheeler [facility] MICROALBUMIN URINE 2024-02-10 16:42:[address] [facility] PROTEIN CREAT RATIO URINE RANDOM 2024-02-10 16:42:[address] [facility] IMMUNOFIXATION, URINE 2024-02-10 16:42:[address] [facility] PROSTATIC SPECIFIC ANTIGEN 2024-02-10 16:40:[address] [facility] COMP. METABOLIC PANEL ([id number]) 2024-02-10 16:40:[address] [facility] MAGNESIUM 2024-02-10 16:40:00 Allen Wheeler [facility] PHOSPHORUS 2024-02-10 16:40:00 Allen Wheeler [facility] URIC ACID 2024-02-10 16:40:00 Allen Wheeler [facility] C4 COMPLEMENT 2024-02-10 16:40:00 Allen Wheeler [facility] ELECTROPHORESIS, SERUM 2024-02-10 16:40:[address] [facility] HEPATITIS B SURFACE ANTIGEN 2024-02-10 16:40:[address] [facility] HEPATITIS B SURFACE ANTIBODY 2024-02-10 16:40:[address] [facility] HCV ANTIBODY 2024-02-10 16:40:00 Allen Wheeler [facility] INTACT PTH CALCIUM GROUP 2024-02-10 16:40:[address] [facility] VITAMIN D, 25-OH 2024-02-10 16:40:[address] [facility] ANTI-DOUBLE STRANDED DNA 2024-02-10 16:40:[address] [facility] SMOOTH MUSCLE AB,IGG W/REFLEX 2024-02-10 16:40:[address] [facility] N-TERMINAL PRO-BNP 2024-02-10 16:40:[address] [facility] GLYCOSYLATED HEMOGLOBIN (A1C) 2024-02-10 16:40:[address] [facility] ANTI-SCL-70 2024-02-10 16:40:00 Allen Wheeler [facility] THO,POST-VOID RES,US,NON-IMAGING 2024-02-03 19:32:00 Eb [facility] THO,POST-VOID RES,US,NON-IMAGING 2024-02-03 19:32:00 Eb [facility] FLU VACC (), 6 MO-64 YRS, .5ML, IM, TIV (FLUCELVAX) 2024-02-02 17:25:06 Doctor Unassigned, Aleneva [facility] FLU VACC (), 6 MO-64 YRS, .5ML, IM, TIV (FLUCELVAX) 2024-02-02 17:25:06 Doctor Unassigned, Aleneva [facility] URINALYSIS 2024-01-03 05:33:00 Socorro Wilkinson [facility] POCT GLUCOSE (AUTOMATED) 2024-01-03 05:10:[address] [facility] TROPONIN I 2024-01-03 05:05:00 Socorro Wilkinson [facility] BASIC METABOLIC PANEL (NA, K, CL, CO2, GLUCOSE, BUN, CREATININE, CA) 2024-01-03 05:05:[address] [facility] CBC WITHOUT DIFF 2024-01-03 05:05:00 Socorro Wilkinson [facility] PROTHROMBIN TIME / INR 2024-01-03 05:05:[address] [facility] ACTIVATED PARTIAL THRMPLAS AMY 2024-01-03 05:05:[address] [facility] MR LUMBAR SPINE W WO CONTRAST 2023-12-11 18:30:[address] [facility] BASIC METABOLIC PANEL (NA, K, CL, CO2, GLUCOSE, BUN, CREATININE, CA) 2023-10-23 13:57:[address] [facility] CBC WITHOUT DIFF 2023-10-23 13:57:00 Donnell Kim [facility] EKG-12 LEAD 2023-10-23 13:31:56 Heather Garcia [facility] POCT GLUCOSE (AUTOMATED) 2023-10-23 12:39:[address] [facility] PREPARE PACKED RBC 2023-10-23 07:36:[address] [facility] TRANSFUSE PACKED RBC 2023-10-23 04:33:[address] [facility] FERRITIN SERUM 2023-10-23 03:31:00 Donnell Kim [facility] IRON 2023-10-23 03:31:00 Judy [facility] TOTAL IRON BINDING CAPACITY 2023-10-23 03:31:[address] [facility] POCT GLUCOSE (AUTOMATED) 2023-10-23 02:47:[address] [facility] HB ABO GROUPING 2023-10-23 00:04:00 Heather Garcia [facility] TROPONIN I 2023-10-22 22:26:00 Heather Garcia [facility] COMP. METABOLIC PANEL ([id number]) 2023-10-22 22:26:[address] [facility] CBC WITH DIFF 2023-10-22 22:26:00 Heather Garcia [facility] GLYCOSYLATED HEMOGLOBIN (A1C) 2023-10-22 22:26:[address] [facility] URINALYSIS 2023-10-22 22:26:00 Heather Garcia [facility] N-TERMINAL PRO-BNP 2023-10-22 22:26:[address] [facility] XR CHEST 1 VW 2023-10-22 22:14:03 Heather Garcia [facility] CT ABDOMEN PELVIS WO CONTRAST 2023-10-22 22:11:[address] [facility] CT ABDOMEN PELVIS WO CONTRAST 2023-10-05 06:24:[address] [facility] URINALYSIS 2023-10-05 06:10:00 Doug Puente [facility] XR HIPS 2 VW RIGHT 2023-10-05 04:47:[address] [facility] SEDIMENTATION RATE 2023-09-30 19:16:[address] [facility] ANTI-NUCLEAR ANTIBODY SCREEN 2023-09-30 19:16:[address] [facility] ANTI-NUCLEAR ANTIBODY TITER 2023-09-30 19:16:[address] [facility] ANTI-NUCLEAR ANTIBODY-PATHOLOGIST INTERPRETATION 2023-09-30 19:16:[address] [facility] LIPID PANEL ([id number])(TOTAL CHOLESTEROL, TRIGLYCERIDES, HDL) 2023-07-17 15:43:[address] [facility] POCT HEMOGLOBIN A1C TEST 2023-07-14 14:45:[address] [facility] POCT GLUCOSE (AUTOMATED) 2023-05-22 15:09:[address] [facility] BASIC METABOLIC PANEL (NA, K, CL, CO2, GLUCOSE, BUN, CREATININE, CA) 2023-05-22 11:47:[address] [facility] CBC WITH DIFF 2023-05-22 11:47:00 Allison [facility] POCT GLUCOSE (AUTOMATED) 2023-05-22 02:45:[address] [facility] POCT GLUCOSE (AUTOMATED) 2023-05-22 00:06:[address] [facility] POCT GLUCOSE (AUTOMATED) 2023-05-21 21:41:[address] [facility] POCT GLUCOSE (AUTOMATED) 2023-05-21 21:38:[address] [facility] POCT GLUCOSE (AUTOMATED) 2023-05-21 18:41:[address] [facility] POCT GLUCOSE (AUTOMATED) 2023-05-21 13:47:[address] [facility] POCT GLUCOSE (AUTOMATED) 2023-05-21 13:47:[address] [facility] POCT GLUCOSE (AUTOMATED) 2023-05-21 12:59:[address] [facility] POCT GLUCOSE (AUTOMATED) 2023-05-21 12:59:00 [facility]OL[facility] PANEL (NA, K, CL, CO2, GLUCOSE, BUN, CREATININE, CA) 2023-05-21 11:27:00 Syd [facility] CBC WITH DIFF 2023-05-21 11:27:00 Velarde, [facility] BASIC METABOLIC PANEL (NA, K, CL, CO2, GLUCOSE, BUN, CREATININE, CA) 2023-05-21 11:27:00 Syd [facility] CBC WITH DIFF 2023-05-21 11:27:00 Velarde, [facility] POCT GLUCOSE (AUTOMATED) 2023-05-21 09:51:00 [facility] PO[facility] GLUCOSE (AUTOMATED) 2023-05-21 09:51:00 Ashlie Michaels [facility] POCT GLUCOSE (AUTOMATED) 2023-05-21 05:19:[address] [facility] POCT GLUCOSE (AUTOMATED) 2023-05-21 05:19:00 Ashlie Michaels [facility] POCT GLUCOSE (AUTOMATED) 2023-05-21 02:31:[address] [facility] POCT GLUCOSE (AUTOMATED) 2023-05-21 02:31:[address] [facility] POCT GLUCOSE (AUTOMATED) 2023-05-21 00:03:00 Ashlie Michaels [facility] POCT GLUCOSE (AUTOMATED) 2023-05-21 00:03:00 Ashlie Michaels [facility] GLYCOSYLATED HEMOGLOBIN (A1C) 2023-05-20 19:27:00 Syd [facility] GLYCOSYLATED HEMOGLOBIN (A1C) 2023-05-20 19:27:00 Syd [facility] ABG+COOX+NA+K+GLU+CA2+ 2023-05-20 18:09:00 Eriberto Michaels [facility] ABG+COOX+NA+K+GLU+CA2+ 2023-05-20 18:09:00 Eriberto Michaels [facility] FL TIME OR (NON-REPORTABLE) 2023-05-20 18:07:[address] [facility] [place] TIME OR (NON-REPORTABLE) 2023-05-20 18:07:[address] [facility] ABG+COOX+NA+K+GLU+CA2+ 2023-05-20 18:02:00 Eriberto Michaels [facility] ABG+COOX+NA+K+GLU+CA2+ 2023-05-20 18:02:00 Eriberto Michaels [facility] VBG+VCOOX+NA+K+GLU+CA2+ 2023-05-20 17:10:[address] [facility] VBG+VCOOX+NA+K+GLU+CA2+ 2023-05-20 17:10:00 Silvio Michaels [facility] VBG+VCOOX+NA+K+GLU+CA2+ 2023-05-20 15:49:00 Silvio Michaels [facility] VBG+VCOOX+NA+K+GLU+CA2+ 2023-05-20 15:49:00 Silvio Michaels [facility] POCT GLUCOSE (AUTOMATED) 2023-05-20 14:48:[address] [facility] LAMINECTOMY LUMBAR 2023-05-20 14:48:00 Hector Michaels [facility] POCT GLUCOSE (AUTOMATED) 2023-05-20 14:48:[address] [facility] LAMINECTOMY LUMBAR 2023-05-20 14:48:00 Hector Michaels [facility] POCT GLUCOSE (AUTOMATED) 2023-05-20 13:20:[address] [facility] POCT GLUCOSE (AUTOMATED) 2023-05-20 13:20:00 [facility] BASIC METABOLIC PANEL (NA, K, CL, CO2, GLUCOSE, BUN, CREATININE, CA) 2023-05-20 13:17:[address] [facility] URINE DRUG (IMMUNOASSAY) - COMPREHENSIVE DRUG SCREEN 2023-05-20 13:17:[address] [facility] HB ABO GROUPING 2023-05-20 13:17:[address] [facility] BASIC METABOLIC PANEL (NA, K, CL, CO2, GLUCOSE, BUN, CREATININE, CA) 2023-05-20 13:17:[address] [facility] URINE DRUG (IMMUNOASSAY) - COMPREHENSIVE DRUG SCREEN 2023-05-20 13:17:[address] [facility] HB ABO GROUPING 2023-05-20 13:17:[address] [facility] ASSIGNMENT OF BENEFITS 2023-05-20 12:49:51 Docto r Unassigned, [facility] HB INDIRECT ANTIGLOBULIN TEST 2023-05-19 23:19:[address] [facility] TYPE AND SCREEN 2023-05-19 23:19:[address] [facility] HB ABO GROUPING 2023-05-19 16:39:[address] [facility] PATIENT QUESTIONNAIRE 2023-04-23 06:01:00 Doctor Unassigned, [facility] PATIENT QUESTIONNAIRE 2023-04-23 06:01:00 Doctor Unassigned, [facility] EXTERNAL PROVIDER RECORDS 2023-04-16 06:01:00 Do ctor Unassigned, [facility] EXTERNAL PROVIDER RECORDS 2023-03-12 06:01:00 Do ctor Unassigned, [facility] MR LUMBAR SPINE WO CONTRAST 2023-03-03 14:41:[address] [facility] XR LUMBAR SPINE 3 VW 2023-02-26 19:06:[address] [facility] ASSIGNMENT OF BENEFITS 2023-02-26 18:38:25 Docto r Unassigned, [facility] INSURANCE CORRESPONDENCE 2023-02-25 05:01:00 Doc tor Unassigned, Aleneva [facility] JUVENCIO MULTI LEVEL - BY VASCULAR LAB 2023-01-08 15:43:[address] [facility] XR RIBS 4+ VW LEFT 2022-12-10 15:58:[address] [facility] CONSENT/REFUSAL FOR DIAGNOSIS AND TREATMENT 2022-12-10 14:32:30 Doctor Unassigned, Aleneva [facility] REFERRAL- REQUEST/RESPONSE 2022-11-18 05:01:00 Doctor Unassigned, Aleneva [facility] EXTERNAL PROVIDER RECORDS 2022-11-14 05:01:00 Do ctor Unassigned, Aleneva [facility] POCT GLUCOSE (AUTOMATED) 2022-11-13 12:23:[address] [facility] MAGNESIUM 2022-11-13 09:11:00 Kendell Herbert [facility] BASIC METABOLIC PANEL (NA, K, CL, CO2, GLUCOSE, BUN, CREATININE, CA) 2022-11-13 09:11:[address] [facility] XR HIPS 2 VW BILATERAL 2022-11-13 01:52:[address] [facility] POCT GLUCOSE (AUTOMATED) 2022-11-13 01:13:[address] [facility] POCT GLUCOSE (AUTOMATED) 2022-11-12 22:38:[address] [facility] TRANSTHORACIC ECHO (TTE) COMPLETE W/ CONTRAST 2022-11-12 16:18:[address] [facility] US ABDOMEN LIMITED 2022-11-12 13:40:[address] [facility] POCT GLUCOSE (AUTOMATED) 2022-11-12 12:25:[address] [facility] TROPONIN I 2022-11-12 10:04:00 [facility] GLYCOSYLATED HEMOGLOBIN (A1C) 2022-11-12 09:37:[address] [facility] CT ABDOMEN PELVIS W CONTRAST 2022-11-12 03:54:[address] [facility] URINE DRUG (IMMUNOASSAY) - COMPREHENSIVE DRUG SCREEN 2022-11-12 02:51:[address] [facility] URINALYSIS 2022-11-12 02:51:00 Socorro Wilkinson [facility] CREATININE, URINE RANDOM 2022-11-12 02:51:[address] [facility] SODIUM, URINE RANDOM 2022-11-12 02:51:[address] [facility] LIPASE 2022-11-12 02:01:00 Socorro Wilkinson [facility] MAGNESIUM 2022-11-12 02:01:00 [facility] TROPONIN I 2022-11-12 02:01:00 [facility] COMP. METABOLIC PANEL (84103) 2022-11-12 02:01:[address] [facility] ETHANOL 2022-11-12 02:01:00 Socorro Wilkinson [facility] CBC WITH DIFF 2022-11-12 02:01:[address] [facility] PROTHROMBIN TIME / INR 2022-11-12 02:01:[address] [facility] ACTIVATED PARTIAL THRMPLAS AMY 2022-11-12 02:01:[address] [facility] N-TERMINAL PRO-BNP 2022-11-12 02:01:[address] [facility] HB ECG ROUTINE & RHYTHM STRIP 2022-11-12 01:54:[address] [facility] CONSENT/REFUSAL FOR DIAGNOSIS AND TREATMENT 2022-11-12 01:48:47 Doctor Unassigned, Aleneva [facility] EXTERNAL PROVIDER RECORDS 2022-11-11 05:01:00 Do ctor Unassigned, [place]en[place] [facility] URINALYSIS 2022-10-05 19:20:00 Sandra Eason [facility] CONSENT/REFUSAL FOR DIAGNOSIS AND TREATMENT 2022-10-05 18:28:34 Doctor Unassigned, Aleneva [facility] POCT HEMOGLOBIN A1C TEST 2022-09-30 14:12:[address] [facility] INSURANCE CORRESPONDENCE 2022-09-29 05:01:00 Doc tor Unassigned, Aleneva [facility] EXTERNAL PROVIDER RECORDS 2022-08-29 05:01:00 Do ctor Unassigned, Aleneva [facility] EXTERNAL PROVIDER RECORDS 2022-08-20 05:01:00 Do ctor Unassigned, Aleneva [facility] POCT HEMOGLOBIN A1C TEST 2022-03-28 15:56:[address] [facility] CONSENT/REFUSAL FOR DIAGNOSIS AND TREATMENT 2022-03-28 15:46:53 Doctor Unassigned, Aleneva [facility] XR CHEST 2 VW 2022-03-11 17:30:33 Fly Walters [facility] EXTERNAL PROVIDER RECORDS 2022-03-10 06:01:00 Do ctor Unassigned, Aleneva [facility] INSURANCE CORRESPONDENCE 2022-03-06 06:01:00 Doc tor Unassigned, Aleneva [facility] COLONOSCOPY (ENDO) 2019-11-04 14:53:[address] [facility] Encounters Start Date/Time End Date/Time Encounter Type Admission Type Attending Clinicians Care Facility Care Department Encounter ID Source 2024-01-20 13:06:56 Emergency [facility] [id number] [facility] 2021-02-24 08:30:34 Emergency [facility] [id number] [facility] 2021-02-22 23:02:20 Emergency [facility] [id number] [facility] 2021-02-22 04:34:35 Outpatient ESSIE GUERRA [facility] [id number] [facility] 2024-07-25 13:30:00 2024-07-25 13:30:00 Outpatient HECTOR BILL JAMES [facility] [id number] [facility] 2024-07-13 11:15:00 2024-07-13 11:15:00 Outpatient JAMAL GARCÍA [facility] [id number] [facility] 2024-06-17 10:00:00 2024-06-17 10:00:00 Outpatient R RASHADBERNADETTE PIZARRO [facility] [id number] [facility] 2024-05-18 09:00:00 2024-05-18 09:00:00 Outpatient R SHAWANDA DUMAS [facility] [id number] [facility] 2024-05-17 13:45:00 2024-05-17 13:45:00 Outpatient R [facility] [id number] [facility] 2024-05-17 00:00:00 2024-05-17 00:00:00 Outpatient R [facility] [id number] [facility] 2024-05-10 14:40:00 2024-05-10 15:11:05 Outpatient R ELLEN [facility] [id number] [facility] 2024-05-10 14:40:00 2024-05-10 15:11:05 [facility] 1.2.840.114 350.1.13.10 4.2.7.2.686 [id number] [facility] 2024-05-10 10:30:00 2024-05-10 10:30:00 Outpatient R KIRILL KIM [facility] [id number] [facility] 2024-05-06 00:00:00 2024-05-09 09:22:[address] [facility] MED[facility] OFF[facility]ILD[facility] 1.2.840.114 350.1.13.10 4.2.7.2.686 [id number] [facility] 2024-04-18 00:00:00 2024-04-22 11:41:[address] [facility] 1.2.840.114 350.1.13.10 4.2.7.2.686 [id number] [facility] 2024-03-01 00:00:00 2024-04-18 16:11:05 Telephone Shawanda Dumas [facility] 1.2.114 350.1.13.10 4.2.7.2.686 [id number] [facility] 2024-04-13 11:00:00 2024-04-13 11:00:00 Outpatient R JADE TO [facility] [id number] [facility] 2024-04-13 10:15:00 2024-04-13 10:30:00 Office Visit Jamal Parson [facility] 1.2840.114 350.1.13.10 4.2.7.2.686 [id number] [facility] 2024-04-11 00:00:00 2024-04-11 23:59:00 Outpatient HECTOR BILL JAMES [facility] [id number] [facility] 2024-04-11 13:30:00 2024-04-11 14:29:19 Office Visit Hector Michaels 1.2.840.1 19674.1.1 3.104.2.7 .3.400917 .8 [id number] [facility] 2024-04-11 00:00:00 2024-04-11 00:00:00 Travel 1.2.840.1 13471.1.1 3.104.2.7 .3.397468 .8 1.2.840.114 350.1.13.10 4.2.7.3.698 084.8 [id number] [facility] 2024-04-05 14:45:00 2024-04-05 15:00:00 Circuit Recorder Visit Shawanda Burch, [facility] Lab Main 1.2840.1 00696.1.1 3.104.2.7 .3.674458 .8 [id number] [facility] 2024-04-05 14:45:00 2024-04-05 14:45:00 Outpatient R SHAWANDA BURCH [facility] [id number] [facility] 2024-04-05 00:00:00 2024-04-05 00:00:00 Travel 1.2.840.1 08111.1.1 3.104.2.7 .3.937795 .8 1.2.840.114 350.1.13.10 4.2.7.3.698 084.8 [id number] [facility] 2024-03-21 08:00:00 2024-03-21 08:00:00 Outpatient R [facility] [id number] [facility] 2024-03-17 00:00:00 2024-03-17 13:44:31 Refill Bernadette Puri 1.2.840.1 84986.1.1 3.104.2.7 .3.118531 .8 [id number] [facility] 2024-03-14 13:30:00 2024-03-14 14:17:44 Outpatient JAMAL GARCÍA [facility] [id number] [facility] 2024-03-14 13:30:00 2024-03-14 14:17:44 Nurse Visit Jamla Parson Nurse, j Surgery 1.2.840.1 03684.1.1 3.104.2.7 .3.793447 .8 [id number] [facility] 2024-03-14 00:00:00 2024-03-14 00:00:00 Travel 1.2.840.1 52420.1.1 3.104.2.7 .3.554791 .8 1.2.840.114 350.1.13.10 4.2.7.3.698 084.8 [id number] [facility] 2024-03-10 10:39:00 2024-03-10 17:30:00 Outpatient R JAMAL PARSON [facility] SUU [id number] [facility] 2024-03-10 10:39:00 2024-03-10 17:30:00 Hospital Encounter Jamla Parson 1.2.840.1 18115.1.1 3.104.2.7 .3.405627 .8 [id number] [facility] 2024-03-10 14:29:00 2024-03-10 16:36:00 Surgery Jamal Parson 1.2.840.1 62429.1.1 3.104.2.7 .3.823614 .8 [id number] [facility] 2024-03-10 14:40:00 2024-03-10 16:05:00 Anesthesia Event [place] 1.2.840.1 34878.1.1 3.104.2.7 .3.071493 .8 [id number] [facility] 2024-03-08 10:30:00 2024-03-08 11:03:30 Outpatient R BERNADETTE PURI [facility] [id number] [facility] 2024-03-08 10:30:00 2024-03-08 11:03:30 Office Visit Bernadette Puri 1.2.840.1 85412.1.1 3.104.2.7 .3.140219 .8 [id number] [facility] 2024-03-08 00:00:00 2024-03-08 00:00:00 Travel 1.2.840.1 32279.1.1 3.104.2.7 .3.339527 .8 1.2.840.114 350.1.13.10 4.2.7.3.698 084.8 [id number] [facility] 2024-03-04 00:00:00 2024-03-04 00:00:00 Scanned Documents Doctor Unassigned, [place] 1.2.840.1 66900.1.1 3.104.2.7 .3.065865 .8 [id number] [facility] 2024-03-04 00:00:00 2024-03-04 00:00:00 Scanned Documents Doctor Unassigned, [place] 1.2.840.1 71292.1.1 3.104.2.7 .3.485618 .8 [id number] [facility] 2024-03-03 00:00:00 2024-03-03 14:25:05 Refill Bernadette Puri 1.2.840.1 00236.1.1 3.104.2.7 .3.706019 .8 [id number] [facility] 2024-03-03 00:00:00 2024-03-03 11:24:52 Telephone Jamal Parson 1.2.840.1 80752.1.1 3.104.2.7 .3.114402 .8 [id number] [facility] 2024-03-03 00:00:00 2024-03-03 09:21:12 Telephone Jamal Parson 1.2.840.1 70232.1.1 3.104.2.7 .3.001760 .8 [id number] [facility] 2024-03-03 00:00:00 2024-03-03 00:00:00 Travel 1.2.840.1 78634.1.1 3.104.2.7 .3.411844 .8 1.2.840.114 350.1.13.10 4.2.7.3.698 084.8 [id number] [facility] 2024-03-02 14:00:00 2024-03-02 16:15:22 Outpatient R JAMAL PARSON [facility] [id number] [facility] 2024-03-02 14:00:00 2024-03-02 16:15:22 Office Visit Jamal Parson Rm2, Adc Surg Proc 1.2.840.1 53339.1.1 3.104.2.7 .3.482881 .8 [id number] [facility] 2024-03-02 13:30:00 2024-03-02 13:45:00 Circuit Recorder Visit Jamal Parson Pob, [facility] Lab Main 1.2.840.1 28113.1.1 3.104.2.7 .3.528816 .8 [id number] [facility] 2024-03-02 00:00:00 2024-03-02 09:30:50 Telephone Shawanda Dumas 1.2.840.1 70185.1.1 3.104.2.7 .3.348533 .8 [id number] [facility] 2024-03-01 13:58:44 2024-03-01 23:59:00 Outpatient R SHAWANDA DUMAS [facility] [id number] [facility] 2024-03-01 13:58:44 2024-03-01 23:59:00 Hospital Encounter Shawanda Dumas 1.2.840.1 76456.1.1 3.104.2.7 .3.670800 .8 [id number] [facility] 2024-03-01 14:30:00 2024-03-01 15:00:00 Office Visit Shawanda Dumas 1.2.840.1 07322.1.1 3.104.2.7 .3.540653 .8 [id number] [facility] 2024-03-01 00:00:00 2024-03-01 00:00:00 Travel 1.2.840.1 40748.1.1 3.104.2.7 .3.422641 .8 1.2.840.114 350.1.13.10 4.2.7.3.698 084.8 [id number] [facility] 2024-02-25 00:00:00 2024-02-25 14:08:53 Telephone Shawanda Dumas J 1..840.1 47380.1.1 3.104.2.7 .3.351818 .8 [id number] [facility] 2024-02-23 00:00:00 2024-02-23 13:48:27 Refill Tra Mayes 1.2840.1 06977.1.1 3.104.2.7 .3.162512 .8 [id number] [facility] 2024-02-12 00:00:00 2024-02-12 00:00:00 Scanned Documents Doctor Unassigned, [place] 1.840.1 21732.1.1 3.104.2.7 .3.954485 .8 [id number] [facility] 2024-02-10 11:15:00 2024-02-10 11:30:00 Circuit Recorder Visit Allen Wheeler, [facility] Lab Main 1..840.1 75471.1.1 3.104.2.7 .3.262247 .8 [id number] [facility] 2024-02-10 11:15:00 2024-02-10 11:15:00 Outpatient R ALLEN WHEELER [facility] [id number] [facility] 2024-02-03 14:30:00 2024-02-03 14:58:28 Office Visit Jamal Parson 1..840.1 38619.1.1 3.104.2.7 .3.091271 .8 [id number] [facility] 2024-02-03 14:30:00 2024-02-03 14:30:00 Outpatient R JAMAL PARSON [facility] [id number] [facility] 2024-02-02 13:30:00 2024-02-02 13:34:20 Imm/Inj Visit Vinny Nguyen Nurse, Florian Baumann 1.2.840.1 38005.1.1 3.104.2.7 .3.187947 .8 [id number] [facility] 2024-02-02 13:30:00 2024-02-02 13:30:00 Outpatient Grady NGUYEN VINNY [facility] [id number] [facility] 2024-02-02 00:00:00 2024-02-02 00:00:00 Travel 1.2.840.1 76909.1.1 3.104.2.7 .3.924231 .8 1.2.840.114 350.1.13.10 4.2.7.3.698 084.8 [id number] [facility] 2024-01-19 10:00:00 2024-01-19 10:00:00 Outpatient BERNADETTE ESTRADA [facility] [id number] [facility] 2024-01-05 15:15:00 2024-01-05 15:30:00 Circuit Recorder Visit Pob, [facility] Lab Main Shawanda Burch Porudolph, [facility] Lab Main [facility] PROFESSIO [facility] 1.2840.114 350.1.13.10 4.2.7.2.686 [id number] [facility] 2024-01-05 15:15:00 2024-01-05 15:15:00 Outpatient SHAWANDA DIAZ [facility] [id number] [facility] 2024-01-02 23:56:00 2024-01-03 04:01:00 Emergency X SOCORRO WILKINSON DONNELL [facility] ERT [id number] [facility] 2024-01-02 23:56:00 2024-01-03 04:01:00 Emergency Socorro Wilkinson [facility] AT [facility] 1.2840.114 350.1.13.10 4.2.7.2.686 [id number] [facility] 2023-12-24 08:00:00 2023-12-24 09:16:11 Outpatient R HAILEY PAIZ [facility] [id number] [facility] 2023-12-24 08:00:00 2023-12-24 09:16:11 Office Visit Hailey Paiz [facility] 1.2.840.114 350.1.13.10 4.2.7.2.686 [id number] [facility] 2023-12-16 16:15:00 2023-12-16 16:51:49 Outpatient R HECTOR MICHAELS JAMES [facility] [id number] [facility] 2023-12-16 16:15:00 2023-12-16 16:51:49 Office Visit Hector Michaels [facility] 1.2.840.114 350.1.13.10 4.2.7.2.686 [id number] [facility] 2023-12-11 12:13:20 2023-12-11 23:59:00 Hospital Encounter Hector Michaels [facility] AT [facility] 1.840.114 350.1.13.10 4.2.7.2.686 [id number] [facility] 2023-12-11 12:13:19 2023-12-11 23:59:00 Outpatient R HECTOR MICHAELS JAMES [facility] [id number] [facility] 2023-12-04 11:00:00 2023-12-04 11:33:59 Outpatient R BERNADETTE PURI [facility] [id number] [facility] 2023-12-04 11:00:00 2023-12-04 11:33:59 Office Visit Bernadette Puri [facility] 1.2.840.114 350.1.13.10 4.2.7.2.686 [id number] [facility] 2023-12-02 16:45:00 2023-12-02 16:56:25 Outpatient R HECTOR MICHAELS JAMES [facility] [id number] [facility] 2023-12-02 16:45:00 2023-12-02 16:56:25 Office Visit Hector Michaels [facility] 1.2.840.114 350.1.13.10 4.2.7.2.686 [id number] [facility] 2023-12-02 15:30:00 2023-12-02 15:30:00 Outpatient R HECTOR MICHAELS JAMES [facility] [id number] [facility] 2023-12-02 15:30:00 2023-12-02 15:30:00 Outpatient R HECTOR MICHAELS JAMES [facility] [id number] [facility] 2023-11-20 11:45:00 2023-11-20 12:00:00 Circuit Recorder Visit Pob, [facility] Lab Main [facility] 1.2.840.114 350.1.13.10 4.2.7.2.686 [id number] [facility] 2023-11-20 11:45:00 2023-11-20 11:45:00 Outpatient R SHAWANDA BURCH [facility] [id number] [facility] 2023-10-28 16:15:00 2023-10-28 21:21:25 Outpatient R HECTOR MICHAELS JAMES [facility] [id number] [facility] 2023-10-28 16:15:00 2023-10-28 21:21:25 Office Visit Hector Michaels [facility] 1.2.840.114 350.1.13.10 4.2.7.2.686 [id number] [facility] 2023-10-23 00:00:00 2023-10-28 10:43:24 Tra Weber [facility] 1.84.114 350.1.13.10 4.2.7.2.686 [id number] [facility] 2023-10-26 00:00:00 2023-10-26 17:06:18 Transition of Care Lara Palmer 1.0.114 350.1.13.10 4.2.7.2.686 [id number] [facility] 2023-10-22 16:18:00 2023-10-23 12:27:00 Outpatient X JUDY DONNELL [facility] [id number] [facility] 2023-10-22 16:18:00 2023-10-23 12:27:00 Emergency [facility] 1..114 350.1.13.10 4.2.7.2.686 [id number] [facility] 2023-10-16 08:15:00 2023-10-16 08:22:19 Outpatient R DEANDRA LUIS CRAIG [facility] [id number] [facility] 2023-10-16 08:15:00 2023-10-16 08:22:19 Office Visit Deandra Luis [facility] 1.84.114 350.1.13.10 4.2.7.2.686 [id number] [facility] 2023-09-08 00:00:00 2023-10-10 18:19:19 Patient Secure Msg Doctor Unassigned, [place] [facility] 1.0.114 350.1.13.10 4.2.7.2.686 [id number] [facility] 2023-10-04 23:04:00 2023-10-05 02:54:00 Emergency X DOUG PUENTE [facility] ERT [id number] [facility] 2023-10-04 23:04:00 2023-10-05 02:54:00 Emergency Doug Puente [facility] 1.2.840.114 350.1.13.10 4.2.7.2.686 [id number] [facility] 2023-09-30 13:15:54 2023-09-30 23:59:00 Hospital Encounter Deandra Luis [facility] MEDICAL OFFICE BUILDING 1..840.114 350.1.13.10 4.2.7.2.686 [id number] [facility] 2023-09-30 13:45:00 2023-09-30 14:57:46 [facility] [id number] [facility] 2023-09-30 13:45:00 2023-09-30 14:57:46 Office Visit Deandra Luis [facility] MED[facility] OFFICE BUILDING 1..840.114 350.1.13.10 4.2.7.2.686 [id number] [facility] 2023-09-30 14:15:00 2023-09-30 14:55:21 Outpatient R DEANDRA LUIS CRAIG [facility] [id number] [facility] 2023-09-30 14:15:00 2023-09-30 14:30:00 Circuit Recorder Visit Lab, Florian - Deandra Trevizo [facility] MEDICAL OFFICE BUILDING 1..840.114 350.1.13.10 4.2.7.2.686 [id number] [facility] 2023-09-10 08:30:00 2023-09-10 08:30:00 Outpatient R DEANDRA LUIS CRAIG [facility] [id number] [facility] 2023-09-04 00:00:00 2023-09-04 13:45:55 Telephone Jaxson [facility] 1.2.840.114 350.1.13.10 4.2.7.2.686 [id number] [facility] 2023-09-01 15:30:00 2023-09-01 16:01:30 Outpatient R JAXSON [facility] [id number] [facility] 2023-09-01 15:30:00 2023-09-01 16:01:30 Office Visit Jaxson [facility] MED[facility] OFF[facility] BUILD[facility] 1.2.840.114 350.1.13.10 4.2.7.2.686 [id number] [facility] 2023-08-31 00:00:00 2023-09-01 15:54:26 Refill Michael Vazquez Nicole [facility] EFRAÍN?[facility] 1.2840.114 350.1.13.10 4.2.7.2.686 [id number] 220 [id number] [facility] 2023-08-13 00:00:00 2023-08-13 00:00:00 Telephone Jaxson [facility] EFRA[facility] 1.2.840.114 350.1.13.10 4.2.7.2.686 [id number] 220 [id number] [facility] 2023-08-13 00:00:00 2023-08-13 00:00:00 Refill Jaxson [facility] EFRA[facility] 1.2.840.114 350.1.13.10 4.2.7.2.686 [id number] 220 [id number] [facility] 2023-08-10 13:30:00 2023-08-10 13:43:26 Outpatient R HECTOR MICHAELS JAMES [facility] [id number] [facility] 2023-08-10 13:30:00 2023-08-10 13:43:26 Office Visit Hector Michaels [facility] 1..840.114 350.1.13.10 4.2.7.2.686 [id number] [facility] 2023-08-03 00:00:00 2023-08-03 00:00:00 Telephone Mayes, Tra [facility] 1..840.114 350.1.13.10 4.2.7.2.686 [id number] 220 [id number] [facility] 2023-07-28 08:00:00 2023-07-28 08:00:00 Outpatient R [facility] [id number] [facility] 2023-07-19 00:00:00 2023-07-19 00:00:00 Patient Secure Msg Doctor Unassigned, Aleneva [facility] 1..840.114 350.1.13.10 4.2.7.2.686 [id number] 220 [id number] [facility] 2023-07-17 10:45:00 2023-07-17 10:45:00 Circuit Recorder Visit Lab, Florian Puri Bernadette [facility] 1..840.114 350.1.13.10 4.2.7.2.686 [id number] [facility] 2023-07-17 10:45:00 2023-07-17 10:44:31 Outpatient R BERNADETTE PURI [facility] [id number] [facility] 2023-07-14 09:30:00 2023-07-14 10:27:57 Outpatient R BERNADETTE PURI [facility] [id number] [facility] 2023-07-14 09:30:00 2023-07-14 10:27:57 [facility] 1.2.840.114 350.1.13.10 4.2.7.2.686 [id number] 220 [id number] [facility] 2023-07-13 00:00:00 2023-07-13 00:00:00 Refill George Michael Nicole [facility] EFRAÍN?[facility] 1.2.840.114 350.1.13.10 4.2.7.2.686 [id number] 220 [id number] [facility] 2023-06-29 00:00:00 2023-06-29 00:00:00 Refill Ger[facility] EFRAÍN?[facility] 1..840.114 350.1.13.10 4.2.7.2.686 [id number] 220 [id number] [facility] 2023-06-21 00:00:00 2023-06-21 00:00:00 Refill [facility] EFRAÍN?[facility] MEDICAL OFFICE BUILDING 1..840.114 350.1.13.10 4.2.7.2.686 [id number] [facility] 2023-06-17 00:00:00 2023-06-17 00:00:00 Refill Hasmukh Higgins [facility] EFRAÍN?[facility] MEDICAL OFFICE BUILDING 1.2.840.114 350.1.13.10 4.2.7.2.686 [id number] 220 [id number] [facility] 2023-06-01 13:30:00 2023-06-01 14:13:46 Outpatient R HECTOR MICHAELS JAMES [facility] [id number] [facility] 2023-06-01 13:30:00 2023-06-01 14:13:46 Office Visit Hector Michaels [facility] 1.2.840.114 350.1.13.10 4.2.7.2.686 [id number] [facility] 2023-05-26 00:00:00 2023-05-26 00:00:00 Telephone X[facility] [place] [facility] 1.2.840.114 350.1.13.10 4.2.7.2.686 [id number] [facility] 2023-05-25 00:00:00 2023-05-25 00:00:00 Transition of Care Lara Palmer [facility] 1.2.840.114 350.1.13.10 4.2.7.2.686 [id number] [facility] 2023-05-20 06:52:00 2023-05-22 12:49:00 [facility] [id number] [facility] 2023-05-20 06:52:00 2023-05-22 12:49:00 Hospital Encounter [facility] 1.2.840.114 350.1.13.10 4.2.7.2.686 [id number] [id number] [facility] 2023-05-20 08:40:00 2023-05-20 13:21:00 Surgery [facility] 1.2.840.114 350.1.13.10 4.2.7.2.686 [id number] [facility] 2023-05-20 00:00:00 2023-05-20 00:00:00 Orders Only Doctor Unassigned, Aleneva [facility] 1.2.840.114 350.1.13.10 4.2.7.2.686 [id number] [facility] 2023-05-19 10:00:00 2023-05-19 10:15:00 Circuit Recorder Visit Pob, Adc Lab Main [facility] 1.2840.114 350.1.13.10 4.2.7.2.686 [id number] [facility] 2023-05-19 10:00:00 2023-05-19 10:00:00 Outpatient R FRITZ ESCOBAR [facility] [id number] [facility] 2023-05-18 13:05:00 2023-05-18 13:10:00 Pre-Anesth esia Evaluation Call, [facility] Phone [facility] 1.840.114 350.1.13.10 4.2.7.2.686 [id number] [facility] 2023-05-18 00:00:00 2023-05-18 00:00:00 Telephone [facility]ber [facility] MEDICAL OFFICE BUILDING 1.84.114 350.1.13.10 4.2.7.2.686 [id number] 220 [id number] [facility] 2023-05-16 00:00:00 2023-05-16 00:00:00 Nurse Triage Yazmin Bahena [facility] 1.20.114 350.1.13.10 4.2.7.2.686 [id number] [facility] 2023-05-13 00:00:00 2023-05-13 00:00:00 Refill [facility] EFRAÍN[facility] 1.2840.114 350.1.13.10 4.2.7.2.686 [id number] [facility] 2023-05-13 00:00:00 2023-05-13 00:00:00 [facility] 1.840.114 350.1.13.10 4.2.7.2.686 [id number] [facility] 2023-05-07 11:17:24 2023-05-07 23:59:00 Outpatient R [facility]LL[facility] [id number] [facility] 2023-05-07 11:17:24 2023-05-07 23:59:00 Hospital Encounter Ellen Totheresa [facility] 1.2840.114 350.1.13.10 4.2.7.2.686 [id number] [facility] 2023-05-07 12:00:00 2023-05-07 12:15:00 Circuit Recorder Visit Pob, Adc Lab Main Yousuf Jade Shawanda Burch [facility] PROFESSIO NAL BUILDING 1.840.114 350.1.13.10 4.2.7.2.686 [id number] [facility] 2023-05-01 00:00:00 2023-05-01 00:00:00 Telephone Hector Michaels [facility] 1.840.114 350.1.13.10 4.2.7.2.686 [id number] [facility] 2023-04-28 00:00:00 2023-04-28 00:00:00 Telephone [facility] 1.840.114 350.1.13.10 4.2.7.2.686 [id number] [facility] 2023-04-24 00:00:00 2023-04-24 00:00:00 Michael Hern[facility] 1.2840.114 350.1.13.10 4.2.7.2.686 [id number] [facility] 2023-04-23 11:15:00 2023-04-23 11:45:00 Office Visit Hector Michaels [facility] [place] 1.2.840.114 350.1.13.10 4.2.7.2.686 [id number] [facility] 2023-04-23 11:15:00 2023-04-23 11:15:00 Outpatient R HECTOR MICHAELS [facility] [id number] [facility] 2023-04-16 00:00:00 2023-04-16 00:00:00 Orders Only Doctor Unassigned, Aleneva [facility] 1.20.114 350.1.13.10 4.2.7.2.686 [id number] [id number] [facility] 2023-04-13 14:40:00 2023-04-13 14:40:00 Office Visit Maria Antonia [facility] [place] 1.2840.114 350.1.13.10 4.2.7.2.686 [id number] [facility] 2023-04-13 14:40:00 2023-04-13 14:23:58 Outpatient R MARIA [facility] [id number] [facility] 2023-04-13 00:00:00 2023-04-13 00:00:00 Refill Tra Mayes [facility] EFRAÍN?[facility] 1.2840.114 350.1.13.10 4.2.7.2.686 [id number] [facility] 2023-03-12 00:00:00 2023-03-12 00:00:00 Orders Only Doctor Unassigned, Aleneva [facility] 1.2840.114 350.1.13.10 4.2.7.2.686 [id number] [id number] [facility] 2023-03-06 09:45:00 2023-03-06 10:01:12 Outpatient R DEANDRA LUIS CRAIG [facility] [id number] [facility] 2023-03-06 09:45:00 2023-03-06 10:01:12 Office Visit Deandra Luis [facility] 1.2.840.114 350.1.13.10 4.2.7.2.686 [id number] [facility] 2023-03-03 07:36:06 2023-03-03 23:59:00 Outpatient R DEANDRA LUIS [facility]RAIG [facility] [id number] [facility] 2023-03-03 07:36:06 2023-03-03 23:59:00 Hospital Encounter Deandra Luis [facility] 1..840.114 350.1.13.10 4.2.7.2.686 [id number] [facility] 2023-02-26 13:38:20 2023-02-26 23:59:00 Hospital Encounter Deandra Luis [facility] 1.2.840.114 350.1.13.10 4.2.7.2.686 [id number] [facility] 2023-02-26 13:00:00 2023-02-26 13:06:24 Outpatient R DEANDRA LUIS [facility]RAIG [facility] [id number] [facility] 2023-02-26 13:00:00 2023-02-26 13:06:24 Office Visit Deandra Luis [facility]YAEL [facility] MEDICAL OFFICE BUILDING 1.2.840.114 350.1.13.10 4.2.7.2.686 [id number] [facility] 2023-02-25 00:00:00 2023-02-25 00:00:00 Orders Only Doctor Unassigned, Aleneva [facility] 1.0.114 350.1.13.10 4.2.7.2.686 [id number] [facility] 2023-01-08 09:12:47 2023-01-08 23:59:00 Outpatient R JULIO [facility] [id number] [facility] 2023-01-08 09:00:00 2023-01-08 23:59:00 Hospital Encounter Julio [facility] 1.840.114 350.1.13.10 4.2.7.2.686 [id number] [facility] 2022-12-23 09:30:00 2022-12-23 09:30:00 Outpatient Grady KIM [facility] [id number] [facility] 2022-12-19 10:00:00 2022-12-19 10:47:25 Outpatient R JULIO [facility] [id number] [facility] 2022-12-19 10:00:00 2022-12-19 10:47:25 Office Visit Julio [facility] 1..114 350.1.13.10 4.2.7.2.686 [id number] [facility] 2022-12-16 08:00:00 2022-12-16 08:00:00 Outpatient R JULIO [facility] [id number] [facility] 2022-12-10 09:40:00 2022-12-10 12:19:00 Emergency X MALGORZATA NGUYEN [facility] ERT [id number] [facility] 2022-12-10 09:40:00 2022-12-10 12:19:00 Emergency Malgorzata Nguyen [facility] 1.2840.114 350.1.13.10 4.2.7.2.686 [id number] [facility] 2022-11-18 00:00:00 2022-11-18 00:00:00 Orders Only Doctor Unassigned, Aleneva [facility] 1.2840.114 350.1.13.10 4.2.7.2.686 [id number] [facility] 2022-11-14 00:00:00 2022-11-14 00:00:00 Orders Only Doctor Unassigned, Aleneva [facility] 1.2840.114 350.1.13.10 4.2.7.2.686 [id number] [id number] [facility] 2022-11-11 20:49:00 2022-11-13 11:00:00 Outpatient OMAR STOVER [facility] TRICIA [id number] [facility] 2022-11-11 20:49:00 2022-11-13 11:00:00 Emergency Socorro Wilkinson Mohammad A. [facility] 1.0.114 350.1.13.10 4.2.7.2.686 [id number] [facility] 2022-11-11 00:00:00 2022-11-11 00:00:00 Orders Only Doctor Unassigned, Aleneva [facility] 1.20.114 350.1.13.10 4.2.7.2.686 [id number] [facility] 2022-11-06 00:00:00 2022-11-06 00:00:00 Telephone Tra Mayes [facility] 1.2840.114 350.1.13.10 4.2.7.2.686 [id number] [facility] 2022-11-03 00:00:00 2022-11-03 00:00:00 Outpatient SELINA_Jose Nickerson_ [facility] A[facility] [id number] [facility] 2022-10-09 00:00:00 2022-10-09 00:00:00 Telephone [facility] MED[facility] OFFICE BUILD[facility] 1..114 350.1.13.10 4.2.7.2.686 [id number] 220 [id number] [facility] 2022-10-06 00:00:00 2022-10-06 00:00:00 Telephone [facility] MEDICAL OFFICE BUILDING 1.114 350.1.13.10 4.2.7.2.686 [id number] [facility] 2022-10-05 13:33:00 2022-10-05 15:26:00 Emergency X SANDRA EASON [facility] ERT [id number] [facility] 2022-10-05 13:33:00 2022-10-05 15:26:00 Emergency Sandra Eason [facility] 1.114 350.1.13.10 4.2.7.2.686 [id number] [id number] [facility] 2022-09-30 09:00:00 2022-09-30 11:29:24 Outpatient R GEBRER [facility] [id number] [facility] 2022-09-30 09:00:00 2022-09-30 11:29:24 Office Visit [facility]ber [facility] MEDICAL OFFICE BUILDING 1.84.114 350.1.13.10 4.2.7.2.686 [id number] 220 [id number] [facility] 2022-09-30 10:00:00 2022-09-30 10:15:00 Circuit Recorder Visit Lab, Ang - Db Gerber [facility] MEDICAL OFFICE BUILDING 1..114 350.1.13.10 4.2.7.2.686 [id number] [facility] 2022-09-29 00:00:00 2022-09-29 00:00:00 Orders Only Doctor Unassigned, Aleneva [facility] 1.2.840.114 350.1.13.10 4.2.7.2.686 [id number] [id number] [facility] 2022-08-29 00:00:00 2022-08-29 00:00:00 Orders Only Doctor Unassigned, Aleneva [facility] 1.2.840.114 350.1.13.10 4.2.7.2.686 [id number] [id number] [facility] 2022-08-25 00:00:00 2022-08-25 00:00:00 Telephone Mayes [facility] MEDICAL OFFICE BUILDING 1.2840.114 350.1.13.10 4.2.7.2.686 [id number] 220 [id number] [facility] 2022-08-20 00:00:00 2022-08-20 00:00:00 Orders Only Doctor Unassigned, Aleneva [facility] 1.2.840.114 350.1.13.10 4.2.7.2.686 [id number] [id number] [facility] 2022-07-22 00:00:00 2022-07-22 00:00:00 Telephone [facility] MEDICAL OFFICE BUILDING 1.2.840.114 350.1.13.10 4.2.7.2.686 [id number] [facility] 2022-07-01 00:00:00 2022-07-01 00:00:00 Telephone [facility] MEDICAL OFFICE BUILDING 1.2.840.114 350.1.13.10 4.2.7.2.686 [id number] 220 [id number] [facility] 2022-06-30 00:00:00 2022-06-30 00:00:00 Refill Gerber [facility] EFRAÍN?YAEL [facility] MEDICAL OFFICE BUILDING 1..840.114 350.1.13.10 4.2.7.2.686 [id number] 220 [id number] [facility] 2022-06-23 00:00:00 2022-06-23 00:00:00 [facility]ill [facility] 1..840.114 350.1.13.10 4.2.7.2.686 [id number] 220 [id number] [facility] 2022-06-02 00:00:00 2022-06-02 00:00:00 Refill [facility] EFRAÍN?[facility] MEDICAL OFFICE BUILDING 1..840.114 350.1.13.10 4.2.7.2.686 [id number] [facility] 2022-05-08 09:30:00 2022-05-08 09:30:00 Outpatient FLY JONAS SHIWAN [facility] [id number] [facility] 2022-04-18 00:00:00 2022-04-18 00:00:00 Telephone Sharad [facility] MEDICAL OFFICE BUILDING 1..840.114 350.1.13.10 4.2.7.2.686 [id number] 220 [id number] [facility] 2022-03-28 10:00:00 2022-03-28 10:19:20 Outpatient R [facility] [id number] [facility] 2022-03-28 10:00:00 2022-03-28 10:19:20 Office Visit [facility] EFRA[facility]N?[facility] MEDICAL OFFICE BUILDING 1..840.114 350.1.13.10 4.2.7.2.686 [id number] 220 [id number] [facility] 2022-03-28 00:00:00 2022-03-28 00:00:00 Orders Only Doctor Unassigned, Aleneva [facility] 1.2.840.114 350.1.13.10 4.2.7.2.686 [id number] [id number] [facility] 2022-03-27 08:00:00 2022-03-27 08:00:00 Outpatient R FLY [facility]S [facility] [id number] [facility] 2022-03-26 00:00:00 2022-03-26 00:00:00 Refill [facility] MEDICAL OFFICE BUILDING 1.2.840.114 350.1.13.10 4.2.7.2.686 [id number] 220 [id number] [facility] 2022-03-21 00:00:00 2022-03-21 00:00:00 Refill [facility] MEDICAL OFFICE BUILDING 1.2840.114 350.1.13.10 4.2.7.2.686 [id number] 220 [id number] [facility] 2022-03-11 11:17:45 2022-03-11 23:59:00 Hospital Encounter Fly Walters [facility] 1.284.114 350.1.13.10 4.2.7.2.686 [id number] [facility] 2022-03-11 11:15:00 2022-03-11 11:30:00 Circuit Recorder Visit Pob, Adc Lab Main [facility] PROFESSIO NAL BUILDING 1.2.84.114 350.1.13.10 4.2.7.2.686 [id number] [facility] 2022-03-11 09:30:00 2022-03-11 10:34:57 Outpatient R FLY WALTERS SHIWAN [facility] [id number] [facility] 2022-03-11 09:30:00 2022-03-11 10:34:57 Office Visit [facility] 1.2840.114 350.1.13.10 4.2.7.2.686 [id number] [facility] 2022-03-11 00:00:00 2022-03-11 00:00:00 Telephone Fly Walters [facility] 1.20.114 350.1.13.10 4.2.7.2.686 [id number] 084 [id number] [facility] 2022-03-10 00:00:00 2022-03-10 00:00:00 Orders Only Doctor Unassigned, Aleneva [facility] 1.2840.114 350.1.13.10 4.2.7.2.686 [id number] [id number] [facility] 2022-03-06 00:00:00 2022-03-06 00:00:00 Orders Only Doctor Unassigned, Aleneva [facility] 1.2.840.114 350.1.13.10 4.2.7.2.686 [id number] [id number] [facility] 2022-03-04 00:00:00 2022-03-04 00:00:00 Telephone Sharad [facility] 1.2840.114 350.1.13.10 4.2.7.2.686 [id number] 220 [id number] [facility] 2022-03-03 00:00:00 2022-03-03 00:00:00 [facility] 1.2840.114 350.1.13.10 4.2.7.2.686 [id number] 220 [id number] [facility] 2022-03-01 00:00:00 2022-03-01 00:00:00 Refill [facility]N?[facility] 1.2.840.114 350.1.13.10 4.2.7.2.686 [id number] 220 [id number] [facility] 2022-02-25 00:00:00 2022-02-25 00:00:00 Refill [facility]N?YAEL [facility] MEDICAL OFFICE BUILDING 1.2.840.114 350.1.13.10 4.2.7.2.686 [id number] 220 [id number] [facility] 2022-02-17 00:00:00 2022-02-17 00:00:00 Refill [facility]N?YAEL [facility] MEDICAL OFFICE BUILDING 1.2.840.114 350.1.13.10 4.2.7.2.686 [id number] 220 [id number] [facility] 2022-02-05 00:00:00 2022-02-05 00:00:00 Telephone [facility] 1.2.840.114 350.1.13.10 4.2.7.2.686 [id number] 220 [id number] [facility] 2022-02-04 00:00:00 2022-02-04 00:00:00 Telephone [facility]N?[facility] MEDICAL OFFICE BUILDING 1.2.840.114 350.1.13.10 4.2.7.2.686 [id number] 220 [id number] [facility] 2022-02-03 09:30:00 2022-02-03 09:30:00 Outpatient FLY JONAS SHIWAN [facility] [id number] [facility] 2022-01-08 19:20:00 2022-01-08 19:58:00 Emergency X SANDRA EASON [facility] ERT [id number] [facility] 2022-01-08 19:20:00 2022-01-08 19:58:00 Emergency Sandra Eason [facility] 1.2.840.114 350.1.13.10 4.2.7.2.686 [id number] [facility] 2022-01-07 00:00:00 2022-01-07 00:00:00 Telephone Tra [facility]es [facility] MEDICAL OFFICE BUILDING 1.2.840.114 350.1.13.10 4.2.7.2.686 [id number] 220 [id number] [facility] 2021-12-12 00:00:00 2021-12-12 00:00:00 Telephone Sharad [facility] MEDICAL OFFICE BUILDING 1.2.840.114 350.1.13.10 4.2.7.2.686 [id number] 220 [id number] [facility] 2021-12-12 00:00:00 2021-12-12 00:00:00 Orders Only Doctor Unassigned, Aleneva [facility] 1.2.840.114 350.1.13.10 4.2.7.2.686 [id number] 009 [id number] [facility] 2021-12-04 00:00:00 2021-12-04 00:00:00 Orders Only Doctor Unassigned, Aleneva [facility] 1.2.840.114 350.1.13.10 4.2.7.2.686 [id number] [id number] [facility] 2021-11-25 00:00:00 2021-11-25 00:00:00 Telephone Sharad [facility] MEDICAL OFFICE BUILDING 1.2.840.114 350.1.13.10 4.2.7.2.686 [id number] 220 [id number] [facility] 2021-11-15 09:30:00 2021-11-15 10:00:00 Office Visit Sharad [facility] MED[facility] OFF[facility] BUILDING 1.84.114 350.1.13.10 4.2.7.2.686 [id number] 220 [id number] [facility] 2021-11-15 09:30:00 2021-11-15 09:30:00 Outpatient R [facility] [id number] [facility] 2021-10-21 00:00:00 2021-10-21 00:00:00 Refill [facility] 1.84.114 350.1.13.10 4.2.7.2.686 [id number] [facility] 2021-10-10 00:00:00 2021-10-10 00:00:00 Refill Michael Vazquez [facility] 1..114 350.1.13.10 4.2.7.2.686 [id number] 220 [id number] [facility] 2021-09-16 00:00:00 2021-09-16 00:00:00 Orders Only Doctor Unassigned, Aleneva [facility] 1.114 350.1.13.10 4.2.7.2.686 [id number] [id number] [facility] 2021-09-06 00:00:00 2021-09-06 00:00:00 Refill Sharad [facility] 1.84114 350.1.13.10 4.2.7.2.686 [id number] 220 [id number] [facility] 2021-08-08 12:00:00 2021-08-08 12:15:00 Circuit Recorder Visit Lab[facility] 1.2.840.114 350.1.13.10 4.2.7.2.686 [id number] [facility] 2021-08-08 12:00:00 2021-08-08 12:00:00 Outpatient R [facility] [id number] [facility] 2021-08-08 12:00:00 2021-08-08 12:00:00 Outpatient R [facility] [id number] [facility] 2021-08-08 00:00:00 2021-08-08 00:00:[address] [facility] 1.2840.114 350.1.13.10 4.2.7.2.686 [id number] 220 [id number] [facility] 2021-08-08 00:00:00 2021-08-08 00:00:00 [facility]phone [facility] 1.2840.114 350.1.13.10 4.2.7.2.686 [id number] [facility] 2021-07-31 00:00:00 2021-07-31 00:00:00 [facility] 1.2840.114 350.1.13.10 4.2.7.2.686 [id number] 220 [id number] [facility] 2021-07-30 00:00:00 2021-07-30 00:00:00 Telephone [facility] 1.2840.114 350.1.13.10 4.2.7.2.686 [id number] [facility] 2021-07-30 00:00:00 2021-07-30 00:00:00 Orders Only Doctor Unassigned, Al[place]eva [facility] 1..114 350.1.13.10 4.2.7.2.686 [id number] [facility] 2021-07-16 13:30:00 2021-07-16 13:45:00 Circuit Recorder Visit Lab, Ang - Db [facility] 1..114 350.1.13.10 4.2.7.2.686 [id number] [facility] 2021-07-16 13:00:00 2021-07-16 13:32:25 Office Visit Sharad [facility] 1..114 350.1.13.10 4.2.7.2.686 [id number] [facility] 2021-07-16 13:00:00 2021-07-16 13:32:25 [id number] 2021-07-16 13:30:00 2021-07-16 13:30:00 Outpatient R [facility] [id number] [facility] 2021-07-16 13:00:00 2021-07-16 13:00:00 Outpatient R [facility] [id number] [facility] 2021-07-16 00:00:00 2021-07-16 00:00:00 Orders Only Doctor Unassigned, Al[place]eva [facility] .114 350.1.13.10 4.2.7.2.686 [id number] [facility] 2021-07-15 00:00:00 2021-07-15 00:00:00 Refill Tra [facility]es [facility] 1..114 350.1.13.10 4.2.7.2.686 [id number] [facility] 2021-04-30 00:00:00 2021-04-30 00:00:00 Orders Only Doctor Unassigned, [place] [facility] 1.2840.114 350.1.13.10 4.2.7.2.686 [id number] [facility] 2021-04-22 00:00:00 2021-04-22 00:00:00 Refill Jade To [facility] 1.84.114 350.1.13.10 4.2.7.2.686 [id number] [facility] 2021-04-17 13:30:00 2021-04-17 14:37:39 Outpatient R GERBER [facility] [id number] [facility] 2021-04-17 13:30:00 2021-04-17 14:37:39 Office Visit Gerber [facility] 1.840.114 350.1.13.10 4.2.7.2.686 [id number] [facility] 2021-04-17 13:30:00 2021-04-17 14:37:39 Outpatient R GERBER [facility] [id number] [facility] 2021-04-17 13:30:00 2021-04-17 13:30:00 Outpatient R GERBER [facility] [id number] [facility] 2021-04-17 00:00:00 2021-04-17 00:00:00 Orders Only Doctor Unassigned, Aleneva [facility] 1.284.114 350.1.13.10 4.2.7.2.686 [id number] [facility] 2021-03-02 00:00:00 2021-03-02 00:00:00 [facility] 1..114 350.1.13.10 4.2.7.2.686 [id number] [facility] 2021-02-27 00:00:00 2021-02-27 00:00:00 [facility]ill David[facility]ameJamal [facility] 1.84.114 350.1.13.10 4.2.7.2.686 [id number] [facility] 2021-02-22 11:49:09 2021-02-22 12:44:00 Office Visit Sharad [facility] MEDICAL OFFICE BUILDING 1.84.114 350.1.13.10 4.2.7.2.686 [id number] [facility] 2021-02-22 11:30:00 2021-02-22 12:44:00 Outpatient R [facility] [id number] [facility] 2021-02-22 12:25:36 2021-02-22 12:40:36 Circuit Recorder Visit Lab, Florian Baumann Sharad [facility] MEDICAL OFFICE BUILDING 1.84.114 350.1.13.10 4.2.7.2.686 [id number] [facility] 2021-02-22 12:30:00 2021-02-22 12:30:00 Outpatient R [facility]ARAD [facility] [id number] [facility] 2021-02-18 00:00:00 2021-02-18 00:00:00 Telephone Tra Mayes [facility] Medical Office Building 1.84.114 350.1.13.10 4.2.7.2.686 [id number] [facility] 2021-01-29 17:52:35 2021-01-29 18:12:35 Urgent Care Mahsa Perdue [facility]?Yael childress Medical Office Building 1.2.840.114 350.1.13.10 4.2.7.2.686 [id number] [facility] 2021-01-29 18:00:00 2021-01-29 18:00:00 Outpatient R [facility] [id number] [facility] 2021-01-27 00:00:00 2021-01-27 00:00:00 Letter (Out) Nguyen Torres [facility] 1.840.114 350.1.13.10 4.2.7.2.686 [id number] [facility] 2021-01-26 15:49:04 2021-01-26 16:16:10 Urgent Care Eladio, [facility]?Yael [facility] Medical Office Building 1..840.114 350.1.13.10 4.2.7.2.686 [id number] [facility] 2021-01-26 16:00:00 2021-01-26 16:00:00 Outpatient R [facility] [id number] [facility] 2021-01-26 00:00:00 2021-01-26 00:00:00 Orders Only Doctor Unassigned, Aleneva [facility] 1.284.114 350.1.13.10 4.2.7.2.686 [id number] [facility] 2021-01-24 00:00:00 2021-01-24 00:00:00 [facility]ill [facility] 1.2.840.114 350.1.13.10 4.2.7.2.686 [id number] [facility] 2020-12-05 13:45:00 2020-12-05 14:05:32 Outpatient R NORBERTO WONG [facility] [id number] [facility] 2020-12-05 13:00:59 2020-12-05 14:05:32 Office Visit Wong Thornton [facility] Health Surgical Specialti harsh [place] 1.2840.114 350.1.13.10 4.2.7.2.686 [id number] [facility] 2020-12-05 13:45:00 2020-12-05 13:45:00 Outpatient R THORNTON WONG [facility] [id number] [facility] 2020-12-05 00:00:00 2020-12-05 00:00:00 Telephone Wong Thornton [facility] 1..840.114 350.1.13.10 4.2.7.2.686 [id number] [facility] 2020-11-30 00:00:00 2020-11-30 00:00:00 Orders Only Doctor Unassigned, Aleneva [facility] 1.84.114 350.1.13.10 4.2.7.2.686 [id number] [id number] [facility] 2020-11-06 00:00:00 2020-11-06 00:00:00 Refill Tra Mayes [facility] Building 1.2.840.114 350.1.13.10 4.2.7.2.686 [id number] [facility] 2020-10-29 00:00:00 2020-10-29 00:00:00 Refill Jade To [facility] Building 1.2.84.114 350.1.13.10 4.2.7.2.686 [id number] [facility] 2020-10-24 10:00:00 2020-10-24 10:00:00 Outpatient R GERBER TRA [facility] [id number] [facility] 2020-08-28 10:00:00 2020-08-28 10:00:00 Outpatient PAIGE ROSALES [facility] [id number] [facility] 2020-08-27 00:00:00 2020-08-27 00:00:00 [facility] 1.2.840.114 350.1.13.10 4.2.7.2.686 [id number] [facility] 2020-08-27 00:00:00 2020-08-27 00:00:00 Telephone [facility] 1.2.840.114 350.1.13.10 4.2.7.2.686 [id number] [facility] 2020-08-27 00:00:00 2020-08-27 00:00:00 Orders Only Doctor Unassigned, Aleneva [facility] 1.2.840.114 350.1.13.10 4.2.7.2.686 [id number] [facility] 2020-08-06 00:00:00 2020-08-06 00:00:00 Refill Paige Pike [facility] 1.2.840.114 350.1.13.10 4.2.7.2.686 [id number] [facility] 2020-08-01 00:00:00 2020-08-01 00:00:00 Refill Gerber Nathanielrich [facility] 1.2.840.114 350.1.13.10 4.2.7.2.686 [id number] [facility] 2020-07-30 00:00:00 2020-07-30 00:00:00 [facility] Yousuf[facility] 1.2.840.114 350.1.13.10 4.2.7.2.686 [id number] [id number] [facility] 2020-07-25 00:00:00 2020-07-25 00:00:00 Patient Outreach Caroline Ribera 1.2.840.114 350.1.13.10 4.2.7.2.686 [id number] [facility] 2020-07-25 00:00:00 2020-07-25 00:00:00 [facility] 1.2840.114 350.1.13.10 4.2.7.2.686 [id number] 059 [id number] [facility] 2020-07-24 00:00:00 2020-07-24 00:00:00 Transition of Care HammondsGenesis lugo 1.2840.114 350.1.13.10 4.2.7.2.686 [id number] [facility] 2020-07-19 12:33:00 2020-07-21 11:58:00 Hospital Encounter Socorro Wilkinson Yaman [facility] 1.2840.114 350.1.13.10 4.2.7.2.686 [id number] [id number] [facility] 2020-07-19 12:33:00 2020-07-21 11:58:00 Inpatient X MARIIA JENNINGS [facility] [id number] [facility] 2020-07-14 08:18:03 2020-07-14 08:48:03 Nurse Visit Therapy, [place] Malone [facility] 1.2840.114 350.1.13.10 4.2.7.2.686 [id number] [facility] 2020-07-14 08:00:00 2020-07-14 08:00:00 Outpatient R KING LOW [facility] [id number] [facility] 2020-07-12 00:00:00 2020-07-12 00:00:00 Telephone Pcp, Patient Does Not Have A [facility] 1.2840.114 350.1.13.10 4.2.7.2.686 [id number] [facility] 2020-07-12 00:00:00 2020-07-12 00:00:00 Telephone Pcp, Patient Does Not Have A [facility] 1.2.114 350.1.13.10 4.2.7.2.686 [id number] [facility] 2020-07-11 14:38:38 2020-07-11 14:58:38 Laboratory Only Lab, Adc Fam Pob Chelsey Brown [facility] Office Building One 1.84.114 350.1.13.10 4.2.7.2.686 [id number] [facility] 2020-07-11 14:20:00 2020-07-11 14:20:00 Outpatient CHELSEY BALTAZAR [facility] [id number] [facility] 2020-07-05 11:15:00 2020-07-05 11:15:00 Outpatient ESSIE WILLIAMSON [facility] [id number] [facility] 2020-06-20 11:00:00 2020-06-20 11:00:00 Outpatient R JADE TO [facility] [id number] [facility] 2020-06-20 00:00:00 2020-06-20 00:00:00 Case Management Paige Pike [facility] Building 1.84.114 350.1.13.10 4.2.7.2.686 [id number] [facility] 2020-05-21 00:00:00 2020-05-21 00:00:00 Telephone Tra Mayes [facility] 1.2.840.114 350.1.13.10 4.2.7.2.686 [id number] [facility] 2020-05-08 10:18:13 2020-05-08 11:30:43 Office [facility] 1.2.840.114 350.1.13.10 4.2.7.2.686 [id number] [facility] 2020-05-08 10:30:00 2020-05-08 10:30:00 Outpatient R GERBER [facility] [id number] [facility] 2020-05-08 00:00:00 2020-05-08 00:00:00 Refill Jade To [facility] 1.2.840.114 350.1.13.10 4.2.7.2.686 [id number] [facility] 2020-04-25 00:00:00 2020-04-25 00:00:00 Refill Gerber [facility] 1.2.840.114 350.1.13.10 4.2.7.2.686 [id number] [facility] 2020-03-06 00:00:00 2020-03-06 00:00:00 [facility]ill [facility] 1.2.840.114 350.1.13.10 4.2.7.2.686 [id number] [facility] 2020-02-08 21:04:00 2020-02-08 23:51:00 Emergency Myrna Dumas [facility] 1.2.840.114 350.1.13.10 4.2.7.2.686 [id number] [facility] 2020-02-08 00:00:00 2020-02-08 00:00:00 Orders Only Doctor Unassigned, Aleneva [facility] 1.2.840.114 350.1.13.10 4.2.7.2.686 [id number] [facility] 2020-02-01 00:00:00 2020-02-01 00:00:00 Telephone Jamal Parson [facility] 1.2.840.114 350.1.13.10 4.2.7.2.686 [id number] [facility] 2020-02-01 00:00:00 2020-02-01 00:00:00 Refill Tra aMyes [facility] 1.2.840.114 350.1.13.10 4.2.7.2.686 [id number] [facility] 2020-01-23 00:00:00 2020-01-23 00:00:00 Telephone Tra Mayes [facility] 1.2.840.114 350.1.13.10 4.2.7.2.686 [id number] 220 [id number] [facility] 2020-01-13 08:53:48 2020-01-13 09:17:41 Office Visit Wong Thornton Craig [facility] 1.2840.114 350.1.13.10 4.2.7.2.686 [id number] [facility] 2020-01-13 08:45:00 2020-01-13 08:45:00 Outpatient R DEANDRA LUIS [facility] [id number] [facility] 2020-01-03 10:33:32 2020-01-03 10:48:32 Circuit Recorder Visit Pob, Adc Lab Main Gerber [facility] 1.2840.114 350.1.13.10 4.2.7.2.686 [id number] [facility] 2020-01-03 09:21:07 2020-01-03 10:03:18 Office Visit Gerber [facility] 1.2.840.114 350.1.13.10 4.2.7.2.686 [id number] [facility] 2020-01-03 09:00:00 2020-01-03 09:00:00 Outpatient R GERBER [facility] [id number] [facility] 2019-12-28 00:00:00 2019-12-28 00:00:00 Orders Only Doctor Unassigned, Aleneva [facility] 1.2840.114 350.1.13.10 4.2.7.2.686 [id number] [id number] [facility] 2019-12-23 00:00:00 2019-12-23 00:00:00 Telephone Gerber [facility] 1.2840.114 350.1.13.10 4.2.7.2.686 [id number] [facility] 2019-12-22 10:30:00 2019-12-22 10:30:00 Outpatient R DEANDRA LUIS [facility] [id number] [facility] 2019-12-22 00:00:00 2019-12-22 00:00:00 Telephone Leanne ErinDarleneAriel [facility] 1.2840.114 350.1.13.10 4.2.7.2.686 [id number] [facility] 2019-12-13 08:52:58 2019-12-13 09:33:23 Office Visit Jade To [facility] 1.2.840.114 350.1.13.10 4.2.7.2.686 [id number] [facility] 2019-12-13 09:00:00 2019-12-13 09:00:00 Outpatient JADE PERDOMO [facility] [id number] [facility] 2019-12-08 09:54:36 2019-12-08 23:59:00 Hospital Encounter Deandra Luis [facility] [place] 1.2.840.114 350.1.13.10 4.2.7.2.686 [id number] [facility] 2019-12-08 09:47:40 2019-12-08 13:42:22 Office Visit Deandra Luis [facility] harsh [place] 1.2.840.114 350.1.13.10 4.2.7.2.686 [id number] [facility] 2019-12-08 10:00:00 2019-12-08 10:00:00 Outpatient R DEANDRA LUIS [facility] [id number] [facility] 2019-12-05 00:00:00 2019-12-05 00:00:00 Telephone [facility] 1.2.840.114 350.1.13.10 4.2.7.2.686 [id number] [facility] 2019-12-05 00:00:00 2019-12-05 00:00:00 Telephone Gerber Tra [facility] 1.2.840.114 350.1.13.10 4.2.7.2.686 [id number] [facility] 2019-12-01 14:19:06 2019-12-01 14:56:35 Office Visit Essie Guerra [facility] Building 1.2.840.114 350.1.13.10 4.2.7.2.686 [id number] [facility] 2019-12-01 14:30:00 2019-12-01 14:30:00 Outpatient R ESSIE GUERRA [facility] [id number] [facility] 2019-11-23 08:00:00 2019-11-23 23:59:00 Hospital Encounter [facility] 1.2840.114 350.1.13.10 4.2.7.2.686 [id number] [facility] 2019-11-23 00:00:00 2019-11-23 00:00:00 Outpatient R ESSIE GUERRA [facility] [id number] [facility] 2019-11-21 08:52:34 2019-11-21 09:16:52 Office Visit Essie Guerra [facility] Professio [facility] 1.840.114 350.1.13.10 4.2.7.2.686 [id number] [facility] 2019-11-21 09:00:00 2019-11-21 09:00:00 Outpatient R ESSIE GUERRA [facility] [id number] [facility] 2019-11-04 06:27:00 2019-11-04 11:15:00 Hospital Encounter Essie Guerra [facility] Surgical [place] 1.284.114 350.1.13.10 4.2.7.2.686 [id number] [facility] 2019-11-03 09:03:00 2019-11-03 09:18:00 Laboratory Only Only, Adc Test Essie Guerra [facility] 1.284.114 350.1.13.10 4.2.7.2.686 [id number] [facility] 2019-11-03 09:15:00 2019-11-03 09:15:00 Outpatient R ESSIE GUERRA [facility] [id number] [facility] 2019-11-03 00:00:00 2019-11-03 00:00:00 Telephone Essie Guerra [facility] 1.20.114 350.1.13.10 4.2.7.2.686 [id number] [facility] 2019-10-31 00:00:00 2019-10-31 00:00:00 Orders Only Doctor Unassigned, Aleneva [facility] 1.2840.114 350.1.13.10 4.2.7.2.686 [id number] [facility] 2019-10-25 08:05:48 2019-10-25 08:15:58 Nurse Visit Nurse, [facility] Surgery Jamal Paniagua [facility] 1.2.114 350.1.13.10 4.2.7.2.686 [id number] [facility] 2019-10-25 08:00:00 2019-10-25 08:00:00 Outpatient R [facility] [id number] [facility] 2019-10-21 00:00:00 2019-10-21 00:00:00 Telephone Essie Guerra [facility] 1.2.114 350.1.13.10 4.2.7.2.686 [id number] [facility] 2019-10-21 00:00:00 2019-10-21 00:00:00 Prep For Surgery [facility] 1.2840.114 350.1.13.10 4.2.7.2.686 [id number] [facility] 2019-10-21 00:00:00 2019-10-21 00:00:00 Telephone Essie Guerra [facility] 1.2840.114 350.1.13.10 4.2.7.2.686 [id number] [facility] 2019-10-20 07:57:38 2019-10-20 09:07:19 Office Visit Essie Guerra [facility] 1.2.840.114 350.1.13.10 4.2.7.2.686 [id number] [facility] 2019-10-20 08:00:00 2019-10-20 08:00:00 Outpatient R ESSIE GUERRA [facility] [id number] [facility] 2019 00:00:00 2019 00:00:00 Telephone Eb [facility] 1.2.840.114 350.1.13.10 4.2.7.2.686 [id number] [facility] 2019-10-05 00:00:00 2019-10-05 00:00:00 Orders Only Doctor Unassigned, Aleneva [facility] 1.284.114 350.1.13.10 4.2.7.2.686 [id number] [facility] 2019-09-21 00:00:00 2019-09-21 00:00:00 Telephone Eb [facility] Building 1.2.840.114 350.1.13.10 4.2.7.2.686 [id number] [facility] 2019-09-07 08:56:03 2019-09-07 09:16:03 [facility] 1.2.840.114 350.1.13.10 4.2.7.2.686 [id number] [facility] 2019-09-07 09:00:00 2019-09-07 09:00:00 Outpatient R JADE TO [facility] [id number] [facility] 2019-09-05 08:13:26 2019-09-05 09:10:08 [facility] 1.2.840.114 350.1.13.10 4.2.7.2.686 [id number] [facility] 2019-09-05 08:00:00 2019-09-05 08:00:00 Outpatient R EB [facility] [id number] [facility] 2019-08-31 16:00:00 2019-08-31 16:00:00 Outpatient R GERBER [facility] [id number] [facility] 2019-08-31 08:19:01 2019-08-31 08:49:01 Telemedici ne Visit Gerber [facility] Building 1.2.840.114 350.1.13.10 4.2.7.2.686 [id number] [facility] 2019-08-30 00:00:00 2019-08-30 00:00:00 Refill Gerber [facility] Building 1.2.840.114 350.1.13.10 4.2.7.2.686 [id number] [facility] 2019-08-25 00:00:00 2019-08-25 00:00:00 Orders Only Doctor Unassigned, Aleneva [facility] 1.2.840.114 350.1.13.10 4.2.7.2.686 [id number] [facility] 2019-08-25 00:00:00 2019-08-25 00:00:00 Telephone Eb [facility] 1.2.840.114 350.1.13.10 4.2.7.2.686 [id number] [facility] 2019-08-22 13:39:00 2019-08-22 23:59:00 Outpatient Jed CHANCE MORALES [facility] [id number] [facility] 2019-08-19 00:00:00 2019-08-19 00:00:[address] [facility] 1.2.840.114 350.1.13.10 4.2.7.2.686 [id number] [facility] 2019-08-12 00:00:00 2019-08-12 00:00:00 Telephone Eb [facility] 1.2.840.114 350.1.13.10 4.2.7.2.686 [id number] [facility] 2019-08-11 00:00:00 2019-08-11 00:00:00 Refill Tra Mayes [facility] Building 1.2.840.114 350.1.13.10 4.2.7.2.686 [id number] [facility] 2019-07-27 00:00:00 2019-07-27 00:00:00 Telephone Paige Pike [facility] 1.2.840.114 350.1.13.10 4.2.7.2.686 [id number] [facility] 2019-07-27 00:00:00 2019-07-27 00:00:00 Orders Only Doctor Unassigned, Aleneva [facility] 1.2.840.114 350.1.13.10 4.2.7.2.686 [id number] [facility] 2019-07-26 09:23:48 2019-07-26 09:38:48 Circuit Recorder Visit 2, Adc Lab Eb [facility] 1.2840.114 350.1.13.10 4.2.7.2.686 [id number] [facility] 2019-07-26 09:30:00 2019-07-26 09:30:00 Outpatient R EB [facility] [id number] [facility] 2019-07-26 00:00:00 2019-07-26 00:00:00 Telephone Leanne Wilfredo [facility] 1.2840.114 350.1.13.10 4.2.7.2.686 [id number] [facility] 2019-07-22 08:21:19 2019-07-22 08:36:19 [facility]ici [facility] 1.2.840.114 350.1.13.10 4.2.7.2.686 [id number] [facility] 2019-07-22 08:15:00 2019-07-22 08:15:00 Outpatient R EB [facility] [id number] [facility] 2019-07-20 08:00:00 2019-07-20 08:00:00 Outpatient R [facility] [id number] [facility] 2019-07-15 00:00:00 2019-07-15 00:00:00 [facility] 1..840.114 350.1.13.10 4.2.7.2.686 [id number] [facility] 2019-07-07 13:26:16 2019-07-07 13:45:19 Nurse Visit Nurse, [facility] 1.2.840.114 350.1.13.10 4.2.7.2.686 [id number] [facility] 2019-07-07 13:30:00 2019-07-07 13:30:00 [facility] [id number] 2019-06-21 07:58:31 2019-06-21 08:16:35 Nurse Visit Nurse, [facility] Surgery Fernando Parson [facility] Building 1.2.840.114 350.1.13.10 4.2.7.2.686 [id number] [facility] 2019-06-21 08:00:00 2019-06-21 08:00:00 Outpatient R EB [facility] [id number] [facility] 2019-06-21 00:00:00 2019-06-21 00:00:00 Refill Eb [facility] Building 1.2.840.114 350.1.13.10 4.2.7.2.686 [id number] [facility] 2019-06-08 12:47:13 2019-06-08 13:02:13 Nurse Visit Nurse, [facility] Surgery Fernando Unknown, [facility] Building 1.2.840.114 350.1.13.10 4.2.7.2.686 [id number] [facility] 2019-06-08 08:00:00 2019-06-08 13:01:42 Outpatient R EB [facility] [id number] [facility] 2019-06-08 00:00:00 2019-06-08 00:00:00 Telephone Eb [facility] 1.2.840.114 350.1.13.10 4.2.7.2.686 [id number] [facility] 2019-06-06 00:00:00 2019-06-06 00:00:00 Telephone Eb [facility] 1.2.840.114 350.1.13.10 4.2.7.2.686 [id number] [facility] 2019-06-01 08:29:54 2019-06-01 08:44:54 Circuit Recorder Visit 2, [facility] Eb [facility] 1.2.840.114 350.1.13.10 4.2.7.2.686 [id number] [facility] 2019-06-01 08:00:00 2019-06-01 08:00:00 Outpatient R EB [facility] [id number] [facility] 2019-06-01 00:00:00 2019-06-01 00:00:00 Telephone [facility] Building 1.2.840.114 350.1.13.10 4.2.7.2.686 [id number] [facility] 2019-06-01 00:00:00 2019-06-01 00:00:00 Orders Only Doctor Unassigned, [place] [facility] 1.2840.114 350.1.13.10 4.2.7.2.686 [id number] [facility] 2019-05-18 08:13:29 2019-05-31 14:02:24 Nurse Visit Nurse, [facility] 1.2840.114 350.1.13.10 4.2.7.2.686 [id number] [facility] 2019-05-30 00:00:00 2019-05-30 00:00:00 Telephone Mayes [facility] 1.2840.114 350.1.13.10 4.2.7.2.686 [id number] 220 [id number] [facility] 2019-05-19 00:00:00 2019-05-19 00:00:00 Orders Only Doctor Unassigned, [place] [facility] 1.2840.114 350.1.13.10 4.2.7.2.686 [id number] [facility] [facility] 08:00:00 2019-05-18 08:29:00 [id number] 2019-05-05 14:00:00 2019-05-05 15:13:58 Outpatient R EB [facility] [id number] [facility] 2019-04-08 08:00:00 2019-04-08 08:49:46 [facility] [id number] [facility] 2019-01-10 00:00:00 2019-01-10 00:00:00 Refill Greber [facility] 1..840.114 350.1.13.10 4.2.7.2.686 [id number] 220 [id number] [facility] 2018-12-15 00:00:00 2018-12-15 00:00:00 Telephone Gerber [facility] 1.2.840.114 350.1.13.10 4.2.7.2.686 [id number] 220 [id number] [facility] 2018-12-15 00:00:00 2018-12-15 00:00:00 Orders Only Doctor Unassigned, Aleneva [facility] 1.2840.114 350.1.13.10 4.2.7.2.686 [id number] 009 [id number] [facility] 2018-12-01 00:00:00 2018-12-01 00:00:00 Refill Gerber [facility] 1.2.840.114 350.1.13.10 4.2.7.2.686 [id number] 220 [id number] [facility] 2018-11-30 09:03:04 2018-11-30 10:12:23 Office Visit Gerber [facility] 1.2.840.114 350.1.13.10 4.2.7.2.686 [id number] 220 [id number] [facility] 2018-11-30 00:00:00 2018-11-30 00:00:00 Orders Only Doctor Unassigned, Aleneva [facility] 1.2840.114 350.1.13.10 4.2.7.2.686 [id number] 009 [id number] [facility] 2018-11-29 00:00:00 2018-11-29 00:00:00 Refill Paige Pike [facility]angelito [place] [facility] 1..840.114 350.1.13.10 4.2.7.2.686 [id number] [facility] Results Test Description Test Time Test Comments Results Result Co mments Source [facility]PO[facility] Urinalysis, Duhefbzgpt5680-62-86 16:33:00 * Test Item Value Reference Range Interpretation Comme nts POCT U SP GRAV (test code = 3255) 1.025 mg/dl 1.005-1.025 POCT PH U (test code = 3254) 5.0 mg/dl 5-8 POCT U LEUK EST (test code = 3263) Small Negative - Negative POCT U NIT (test code = 3262) Negative Negative - Negati ve POCT U PROT (test code = 3259) Negative - Negative POCT U GLU (test code = 3256) Negative Negative - Negati ve POCT U KETONE (test code = 3258) Negative Negative - Negative POCT U UROBILI (test code = 3260) 0.2 mg/dl 0.2-1 POCT U BILI (test code = 3261) Negative Negative - Negative POCT U BLD (test code = 3257) Moderate Negative - Negati ve POCT U COLOR (test code = 3266) yellow POCT U APPEAR (test code = 3267) clear [facility] HospitalPHYSICIAN EVCTMQ8485-00-87 18:51:40Ordered by an unspecified provider.[facility] HospitalTransferrin2024-12-11 17:46:20* Test Item Value Reference Range Interpretation Comme nts TRANSFERRN (test code = 7962601653) 291 mg/dL 168-336 Lab Interpretation (test cod e = 88400-9) Normal [facility] HospitalFerritin Ijzkn6415-09-29 23:35:54* Test Item Value Reference Range Interpretation Comme nts FERRITIN (test code = 2630353450) 10.6 ng/mL 18.0-464.0 L SERGEI (test code = SERGEI) Biotin has been reported to cause a negative bias, interpret results relative to patient's use of biotin. Lab Interpretation (test code = 31674-4) Abnormal [facility] HospitalIron Momgm0352-66-58 23:18:09* Test Item Value Reference Range Interpretation Comme nts IRON (test code = 7243120961) 61 ug/dL 50-160 TIBC (test code = 9339892445) 341 ug/dL 250-410 % FE SAT (test code = 7595023087) 18 % 20-50 L Lab Interpretation (test cod e = 80910-0) Abnormal [facility] HospitalCom. Metabolic Panel (40789)2024-04-05 23:08:48* Test Item Value Reference Range Interpretation Comme nts NA (test code = 8090520055) 135 mmol/L 135-145 K (test code = 8066170994) 5.3 mmol/L 3.5-5.0 H CL (test code = 9281444350) 100 mmol/L 98-108 CO2 TOTAL (test code = 3183733633) 28 mmol/L 23-31 AGAP (test code = 2772589670) 7 2-16 BUN (test code = 4496746877) 27 mg/dL 7-23 H GLUCOSE (test code = 3966418225) 202 mg/dL 70-110 H CREATININE (test code = 2160-0) 1.09 mg/dL 0.60-1.25 TOTAL BILI (test code = 1564647828) 0.2 mg/dL 0.1-1.1 CALCIUM (test code = 6049885925) 9.6 mg/dL 8.6-10.6 T PROTEIN (test code = 0630078709) 7.1 g/dL 6.3-8.2 ALBUMIN (test code = 6649672833) 4.2 g/dL 3.5-5.0 ALK PHOS (test code = 7633545490) 85 U/L 34-122 ALTv (test code = 1742-6) 16 U/L 5-50 AST(SGOT) (test code = 4051150521) 19 U/L 13-40 eGFR (test code = 41771-7) 76.7 mL/min/1.73m2 CKD-EPI eGFR (2020). Assuming creatinine has been stable day-to-day for at least three months, the eGFR indicates Category G2 (60 - 89 mL/min/1.73 m2) Lab Interpretation (test code = 46681-1) Abnormal [facility] with Wqbw5737-74-61 21:38:50* Test Item Value Reference Range Interpretation Comme nts WBC (test code = 6690-2) 11.54 4.20-10.70 H RBC (test code = 789-8) 4.78 4.26-5.52 HGB (test code = 718-7) 12.2 g/dL 12.2-16.4 HCT (test code = 4544-3) 39.4 % 38.4-49.3 MCV (test code = 787-2) 82.4 fL 81.7-95.6 MCH (test code = 785-6) 25.5 pg 26.1-32.7 L MCHC (test code = 786-4) 31.0 g/dL 31.2-35.0 L RDW-SD (test code = 77694-6) 43.7 fL 38.5-51.6 RDW-CV (test code = 788-0) 14.6 % 12.1-15.4 PLT (test code = 777-3) 314 150-328 MPV (test code = 66643-1) 10.1 fL 9.8-13.0 NRBC/100 WBC (test code = 8211831715) 0.0 0.0-10.0 NRBC x10^3 (test code = 0938339435) See_Comment [Automated messa ge] The system which generated this result transmitted reference range: 10*3/?L. The reference range was not used to interpret this result as normal/abnormal. GRAN MAT (NEUT) % (test code = 770-8) 56.3 % IMM GRAN % (test code = 3047452579) 0.30 % LYMPH % (test code = 736-9) 23.7 % MONO % (test code = 5905-5) 5.7 % EOS % (test code = 713-8) 13.3 % BASO % (test code = 706-2) 0.7 % GRAN MAT x10^3(ANC) (test code = 5688093285) 6.48 10*3/uL 1.99-6.95 IMM GRAN x10^3 (test code = 8722549770) 0.04 10*3/uL 0.00-0.06 LYMPH x10^3 (test code = 731-0) 2.74 10*3/uL 1.09-3.23 MONO x10^3 (test code = 742-7) 0.66 10*3/uL 0.36-1.02 EOS x10^3 (test code = 711-2) 1.54 10*3/uL 0.06-0.53 H BASO x10^3 (test code = 704-7) 0.08 10*3/uL 0.01-0.09 Lab Interpretation (test code = 24970-4) Abnormal [facility] HospitalSurgical Pathology Dfxn5017-07-96 17:32:42* Test Item Value Reference Range Interpretation Comme nts Case Report (test code = 0513627944) Surgical Pathology ?Case: [id number] ? Authorizing Provider: ?Jamal Parson MD ? Collected: ? 03/10/2024 1313 ?Ordering Location: ? ? [facility] ? ? ?Received: ?03/10/2024 1727 ? [place] ? Pathologist: ? Tank Randhawa, ? MD ? Specimen: ? ?PROSTATE, prostate chips - 10grams ? Final Diagnosis (test code = 3178679905) d6lgnHFaNQDwn2qiOQFltS FuZzEwMzNcZnRuYmpcdWMx DTfnxtYoZUjfpAcuREH9JX IzIC8jjKgwcMp3dRwlHSQh ttP5gKIhZAdja9vjRTW0l1 mhhzecHUQvSCizBz9tfNFn cQcmAhVlUBVaQVb6jY29RH BndT9uuBSlZIwhnoYgNEsh riSnjlCfVzy7HLE8tJkzJN BljgmpPjD7BRjwABLpvpgt COv5BUwhCFWchUR2TOGkhU XaZ7UqGIGyPP7xwpa4EMW8 CDsdOAUoFtC1YNZjuPDoPU LfqSxwUUutm422WKN2DnVk OHXmtaBcoEzyjE6uHuGdMK weDWVjZ0WfBHStAAUJS1FC QVRFLCBFTlVDTEVBVElPTj ogXHBhclx+UQ4iyws+IC0g EgJLEVdHCWBAE6VEPWNCTb BIWVBFUlBMQVNJQSBXSVRI VXIENe6NQBWxOS7BQAAXMV FFNM5CQJBzfadsAHMtD0Ih IFRheWxvciBTdHJhbmdlLC BNRFxjZjEgIFxwYXJccGFy uRybxsCxQJmnp9BfC2CwNa AwMFxhbnNpXGRlZmxhbmcx WGQoARI1awSzRWYtRPhhMM AbNQmlBj7fsZBmwIuwRpMv MAPes9yosxMKXIvcIoBjD6 07ZPZbGWpgq5uwb8XbXERk cRPqg8L1DZNKkariaAq4k1 azYwRpRwE3qNEbVCwqK6gp muWnqYDvQ9LakPMdbBf7rB pqO16rq6S2DysqN3yfWHNn MNGzE5XpLI6bSQIbWgp5FI G9AWM3ERXzYUXeX1NhSE8v VECjlGLcGYw7h1ivlRmkOJ BwVWC6e7ixTOzeweH1JB7w dy0saOk2c3xmbzMeNEEtAA MmtENNWDBaB1FiwShpIp5e zCh2sAqyUlhqLLF9Owg7PL 0ggn89aij9cJqxVMKdmpbm LcC4PJfeEEWdysynHQs6PW fzFIUgsBV7YKKxvAEnL1Nj KCTkDE4nqgf1TGR9YYmwVJ BcPmU1YZGezJExJIWhtWhy RHjak196LGJ6WwVgLG0dF0 Bms2O1tO1baQVwYWTsoBNr HrRcELMixg3pbUYxKEmwi2 PaLRM7fzQ3gDHfkJStLNCy FN26Raglu1DuEphrKXJ2ED RdjnMti7Rsa2irJfYaftHp R7iwJ1RbZGGfQUAuDUNuVo FegxLoa9Qeb0TtkWKpxFp1 i5cpPXBfAGSniSybx2zgOX K2IMCyT7H0mFLsd8nhAXrm RVIzbKV0zeE7RYTzlXOpT9 NsjC4eQNPdGA0yeta0t6jv VHQ8AZvxOLFaZgZ0ajC1SM XouBYqLRCubRqxYAzpq196 DTN3BsJnDSQzy4LnX3CxiA gzL85maAyzT26oJWJjmUse xY6uvCnpdN5bTpChPtUtBI xxbFxwbGFpblxmMVxmczIw JEyjtjaqDDWtSSlsU7mqDh BlSNUlsYzqNIrbl2NsNOCq XGNmMlxmczIwXHBhciBJIG vtazRpqBCsp56rYGkgsURn MXHjNVloWDMzwEddr4XsB2 uvKZ0dL8KtmDTfxfLrvrYx QAejAELxw2u0cSEutHbil1 SbyREyWM35xzQlMNOeILG7 ZVZev3jpCO83cmbwDmTfjE 28aiAnejTwUERqp7wnE9ni rXOnm9Lvt0DycuXhYYdvs5 MwAW3uyNClltpbmPN1WNXj hPWyfgSaniM2sVsgVYGxiR 2glK9qcHggsI4lOiEtTyGh YOtwZO7jROVlH5qidZDkMY TtLWEbD6viFrPbqD4qkEac GukoglX9EKSuye54 Clinical Information (test code = 6591376178) Benign prostatic hyperplasia with urinary retention [N40.1, R33.8] Gross Description (test code = 7330216919) s7sxtCFxBBDemVDRYYO1SL UgHM1vvDwmzTt1cFvyGFOt xuG9oPXuSOjwb0yuLLU3w5 gvvgGRQwnmHRLzNE9vQOyw CXXpTA9gApVrMMPuCnCoHO BhcGVydzEyMjQwXHBhcGVy bRT7JDQtYQ9eznwtADudGY pjCCYgvxA9QWOhsDVtU0Pj LYThLG0ywlgzLYY5HKPCMm raOk3rnAOyoJvsVjVkEnTd YIRoGKErYOIqt5moerJYhz twnSf7dT2Vy5yow1zfinKg bDtccmVkMFxncmVlbjBcYm g0IQC9eP7OIJBcA8BwPZ0L s6joUOPdkFKtZGG3KHpcc7 pqMCbfOKP7RYKeFPTkXVBb YD3QAcUhCDT6ZPb2RWUxVj T9QRx9WMDNCHPcJRQwWvP9 KbY9QZh3YVBqNW7vSWvuxG YmNMubRzueZYoyO331OXpi UXVbH4DeK5XwNGsiLnTnDL pxVNEoKXLmCOkuUCIyL9LI WEAaDERfMJA4CNJkVWd1EN h8GB0MQkMqNAWcZKP8CvTa NXCcBQp4QIblXN0ASLQzWV ZtRJJ0VXBgKGUhDuCxFDo5 IDIgXFxzcyAzIFxcZmwgXF fzL09uoKZnWEXDAxuccNCz blxmczIwIFNQRUNJTUVOIE NpiMHtR2lxTlMhSlfsQUPe DQpccGFyZCANClxwbGFpbl xsdHJjaFxmczIyXGVwaWNO QRR8QW7cQEOWAcdkiDAhSR ZeGNdwA9KsXGYaXeJmH9Wx E6vaQH9oISIuafYnQWBqoT WvJOYmivSai7YaRYqgpgXt YWJlbGVkIHdpdGggdGhlIH FloHrypcXcsaZlBO3lWUHP QOLzaX5hXIDgZFBaii7ngN K2LWUioZlnfm6nVZJxxiEy yfPxRG1fTGQzygDpj2OwOI 5wAZCyTHYyB4SgH2F7RJCn ZoT1XJ0qaShjvsK0zhM7WH bys0vtUVZndxuuS6K1VYKh i78ncXJ8sFToyDPmJtTtC9 5ydoGqRNm1WbDthWIyOuEd kZKuMvtvD75pvV1dRJynvo VlDQVwSCT0BFoyLN6pCA4m YZVlFBYptDOabS5mvfZerh JksQCzjJX8WXRoQD95jXVa zXaueE5aMKZzuHzxKHWkFV k8JyM8VswpKXTbVJhcfULt CR3YGVEdwKlcusLOvXhbVJ SeBQJFSChdiWEiMJ4UVTEv y3TgP7I6CCZtIKhyd1ksHF UaDMzjd5NrONbALRHLDX9M CR4zfSI5GJoYT1XKE4jEjA IbCEHrUDqvaDLZUG49NBx7 eBF7tK36JDPvINCblLZlBV boP905HOTaZEMxLdEwBEGn WdhyWczvFwdciLJ9BWcqVx dxaS3gsSVDFOVBWnyBZxmd wiVdCQ3HDJ6CFX3BqJFzHB SiQZqkpAFCMR20POp7dNH3 aZ45QEGzZADqkRHuKHnbW5 09VMEqZImxYMo9zaZgECJz MVxmczIwXHBhciANClxzYT RbACTaqMHNi6MqWHRZUogp fWfwIlRuuGDpTlP8PDFdzE WtROA8CH1ojTuiOMTvY8Uw W0PqkrX0LSVdygYQDjucVW VjHO8ZTTYnHHtvccVrUZ4Y fQ== Disclaimer (test code = 5377579373) j0mpzSGpXFEta1xfSYQzhR FuZzEwMzNcZnRuYmpcdWMx DZfnqzFcMZvxb9YfQ0OfQr AwMFxhbnNpXGRlZmxhbmcx MOKmSNN5chYnSWArISxvPK RzYNgnWt7ovEKmlPicOmDa DCOxi9xcdrWSHHidCkBsC0 44WPGhEBnfm7apq5PvDSUj rBFtk3C1SSSGzmjtjRa9dX sqM42tq2I9YprqK4ayHCXi NVJwO6UmDC6rLGPdMjp7ZY A1XFX2IBGzSYAyM0XaOW1f RUTxeMLkQDv5b9asrHvuOL CeMDC5e1vtLBxlozRoIA8n em7vnJv4u7agleJiOTGvKF CvzJAUZGFlI0XzdQdrYm7j cOj5vYdcAmxyXFN9Wtq8LA 7odl79dae7nRtsBGHmzuda HyA2PSivGUZirtrgTIu8PQ gmCJQqkXW8ZRJmtJFfT0Vh PUFcHC4fgko7JWT0GMalZS OvQqM5CNZncAZpERLvmZuc BUdyz679KYB5YzEzZR6cO1 Toc3M6aR0qnQUeBZJktDNs AxNwWIIxwi8ttRPwTIclb7 VbURG6vqQ1cQTzxUHeFOMv XR51Woauh9KzZpcno2ZzD7 5ntMC7OHcse1awVS1bLkU6 cqNoPSzfw7gpsA8mVdO6FQ evEM2bVZ7kCXQeuO2cdwmc XHBnYnJkcmhlYWRccGdicm JoLt2ltGnpTOH6PAinR9zx lH6xKpJ5GUetI9ghfW0jSW u7SXgfcWA8JGWstJ9mCF8r fjuxx1czLJedGSzoOKYxva S1gbN7ZRInoFOpU0QrkN4h VMNoFU4ivhfhi4aaKKQ5YZ hdMENiNRX8WhEnAZEyg6Pb bfh0JmWun9JyvLEcJLxyX7 8hf584KQYukpYyO8dgpBEd rgfuhURktzeqERpyerE9MU AeeuYot5ZdIAQeFRR2PGxc KJxxmXTaPXExpPyzi6cmO5 RscGFyXHBsYWluXGYxXGZz MjBcbGFuZzEwMzNcaGljaF dyYPmnDfCbMNFtLSpzS2ki TpMaQ0KwDIKoDjRutDLmF8 ggVGhpcyByZXBvcnQgbWF5 TQggP1z7PHVawdZloJa0hd SmFxWsEVNaHNT5YIkpoYMz IHPwh7VluzgdkWKyVv5vcN YbXDXhiD8aKWBpTQIbLLus PO7roHb0KQQGwORfoXOaEu ZXZCKeIF59liKfKMKAtjmk f3H4GFnfYXKdc0XowQVaY5 qsf9OzKJWjh87sWF9xa1G0 i6prGTP2ZS6jd7EiALGukF ZrtKIoZERxi2Wooguqg4Ju MQPdqmVlm8ZiKQLfdfUskC AsXNDplsLmyl4hpmIcNIYx ZNHkF8CcjwiutBmywyYhRH Dcvu8cjeBxKXI9LSUYMLVj UUTdn1XejN9ofTBWKBO8zD Qipi8ujdRZcJZvFZVjys63 TTTnVP2oZ8goKECyZJGvzi TmxHXqp9FnOLFgaNV9fVWq TV7UJeIPc53xIJRcSWRHkd EfFARtoVbtiGO6ubN3vU7i IChGREEpLlx+IFRoZSBGRE CoWF2fygNzp9VxawKpqEaj NELewBQjp1OmyYGbd4OmgN mda1GwxXRazCIjJW6qMFHs clxwYXIgVVRNQiBMYWJvcm C2b3LzDQNsJPOfLXI7wOsa ufp6QIEmmW8zVLJbG9ywsm esQAyqUQAhc4FfxT0zoRKD dRCfe6AlhEXqkEJWgWNuCN 8vdeJfIVeYFTyOYCW7fqOn YBZfw7YyLUcqJ0hjI79evK yspKa1yMD1VPC6fI3mNjq+ IFxwYXJccGFyIEFwcHJvcH DdTFJecFkhhvZaW9OpfwYv gG6maYDsgbWgVK1hUK4tO1 J6uBLiXEKydyIvs5gzCAmy dmUgYmVlbiByZXZpZXdlZC Kxt5PwNAocXUK7DZakcjQs bmNsdWRpbmcgSCZFLCBTcG QhcTZrCGG7MUgdifUbemKw WR3fxT9mkAqurS0boQQgsF Z4pdbpINUpAFNurWdrFAXr AX4zzUegsE9bObUhQwOiUW hxRQ2sPQIgX6qayUJpMOTa KZXcH9lpYzNnmI9oeCvkOE xjZjJcZnMyMFxwYXJccGFy XHBsYWluXGYxXGZzMjBcbG FuZzEwMzNcaGljaFxmMVxk VcPkMXNtVYzkX2xcSrFwS9 WcQONjNcYyaEGbD7exQEqz LEP6OATqMR2zgDSrBR10jY Nij7ejAAcpwOnpwz0xH88a vEMyJOkfdLqiCREsp41nl6 YxQCXvdjCzhz6kIAOylkA4 xT1jTEJsoJbyHPOcbSQlCK Xjv0QhWRwntPTkccJlEQwz VNWaKKOrjWJfzuT6tvBxeq YixiFuLANkoKwfXNFih4Im KMEqWOvlb8Jkty6asEIbII RgxbKYzQtqzEQheZ0hR4Az JYTgFOGgec4hSLMuoT8wJA qla9JaermfTGGeVHNiPQMc upRbng9bOWVtiJSSKO6LOZ zraVXzu4XqpyHzH1mPWOG2 NUQwNjYwMjgxKSBleGNlcH MbSRYbcf90MJYrtE9iyEop OPVivB6wwU0smBxdpS6gZe AqRsYtPBngSL6rDWAzX8on wLHcRESbGCJyW8bvCpDydP 9jaFxmMVxjZjJcZnMyMFxw YXJ9fQ== Embedded Images (test code = 4193369850) [facility] HospitalUrine Nyuoabl2891-24-72 15:22:38* Test Item Value Reference Range Interpretation Comme nts URINE CULTURE (test code = 630-4) No aerobic growth (< 100 CFU/mL) [facility] GLUCOSE (AUTOMATED)2024-03-10 22:10:25* Test Item Value Reference Range Interpretation Comme nts POCT GLU (test code = 8422853386) 174 mg/dL 70-110 H Lab Interpretation (test cod e = 68560-7) Abnormal [facility] GLUCOSE (AUTOMATED)2024-03-10 22:10:25* Test Item Value Reference Range Interpretation Comme nts POCT GLU (test code = 3797192207) 174 mg/dL 70-110 H Lab Interpretation (test cod e = 38646-3) Abnormal [facility] HospitalIntubation2024-11-14 20:54:00Erin Quintero CRNA ? ? 03/10/2024 ?3:00 PMIntubationDate/Time: 03/10/2024 2:54 PMUrgency: elective Airway not difficult General Information and Staff Patient location during procedure: ORPerformed: resident/FOOD SAMPLER Performed by: Erin Quintero CRNAAuthorized by: Bong Huerta MD ? Indications and Patient ConditionIndications for airway management: anesthesiaSpontaneous ventilation: presentSedation level: deepPreoxygenated: yesPatient position: sniffingMILS maintained throughoutMask difficulty assessment: 2 - vent by mask + OA or adjuvant +/- NMBA Final Airway DetailsFinal airway type: endotracheal airway Successful airway: ETTCuffed: yes Successful intubation technique: video laryngoscopy (Estes)Facilitating devices/methods: intubating styletEndotracheal tube insertion site: oralETT size (mm): 7.0Cormack-Lehane Classification: grade I - full view of glottisPlacement verified by: chest auscultation and capnometry Cuff volume (mL): 8Measured from: lipsETT to lips (cm): 21Number of attempts atapproach: 1Ventilation between attempts: noneNumber of other approaches attempted: 0 Additional CommentsSmooth, atraumatic, dentition and lips unchanged from pre-op.[facility] GLUCOSE (AUTOMATED)2024-03-10 17:05:26* Test Item Value Reference Range Interpretation Comme nts POCT GLU (test code = 2700570259) 217 mg/dL 70-110 H Lab Interpretation (test cod e = 80235-3) Abnormal [facility] GLUCOSE (AUTOMATED)2024-03-10 17:05:26* Test Item Value Reference Range Interpretation Comme nts POCT GLU (test code = 1642925355) 217 mg/dL 70-110 H Lab Interpretation (test cod e = 55449-7) Abnormal [facility],POST-VOID RES,US,JWN-NMTAIBM1814-42-06 22:16:00* Test Item Value Reference Range Interpretation Comme nts PVR (URINE VOLUME) (test code = 5193) 45 ml 0-100 [facility] Urinalysis, Lktmpbiuds8330-55-52 20:03:00 * Test Item Value Reference Range Interpretation Comme nts POCT U SP GRAV (test code = 3255) 1.025 mg/dl 1.005-1.025 A POCT PH U (test code = 3254) 5.0 mg/dl 5-8 A POCT U LEUK EST (test code = 3263) negative Negative - Negative POCT U NIT (test code = 3262) negative Negative - Negati ve POCT U PROT (test code = 3259) 300 Negative - Negative POCT U GLU (test code = 3256) 500 Negative - Negati ve POCT U KETONE (test code = 3258) trace Negative - Negative POCT U UROBILI (test code = 3260) 0.2 mg/dl 0.2-1 POCT U BILI (test code = 3261) negtive Negative - Negative POCT U BLD (test code = 3257) trace-lysed Negative - Negat gasper POCT U COLOR (test code = 3266) yellow POCT U APPEAR (test code = 3267) clear Lab Interpretation (test cod e = 28474-1) Abnormal [facility] HospitalFL TIME OR (NON-REPORTABLE)2024-03-01 20:48:19 These images do not require a Radiology diagnostic report.[facility] HospitalPOCT GLUCOSE (AUTOMATED)2024-03-01 20:32:52* Test Item Value Reference Range Interpretation Comme [facility] POCT GLU (test code = 1656164946) 143 mg/dL 70-110 H Lab Interpretation (test cod e = 22344-2) Abnormal [facility] HospitalElectrophoresis, [id number] 19:14:35* Test Item Value Reference Range Interpretation Comme [facility] T PROTEIN (test code = 8703777217) 7.4 g/dL 6.3-8.2 ALBUMIN (test code = 8909450620) 4.0 g/dL 3.0-4.8 ALPHA 1 (test code = 3381814227) 0.3 g/dL 0.2-0.4 ALPHA 2 (test code = 6151967823) 0.9 g/dL 0.6-1.2 BETA (test code = 5175256513) 1.1 g/dL 0.7-1.4 GAMMA (test code = 8889659467) 1.1 g/dL 1.0-1.8 Electrophoresis Interpretation (test code = 9110289984) Serum protein electrophoresis interpretation: Normal serum protein profile. No M spike present in serum. No urine sample submitted for testing. ? [facility] HospitalSmth Muscle Ab,IgG w/Cvubbo2266-31-06 06:07:40* Test Item Value Reference Range Interpretation Comme nts F-ACTIN (SMOOTH MUSCLE) AB, IGG(BEAKER) (test code = 21657-2) 8 0-19 If F-Actin (Smoo th Muscle) Antibody, IgG is negative, the Smooth Muscle Antibody titer by IFA is not performed.REFERENCE INTERVAL: F-Actin (Smooth Muscle) Antibody, IgG by ?JENNIFER ?19 Units or less ....... Negative ?20 - 30 Units .......... Weak Positive-Suggest repeat ? testing in two to three weeks ? with fresh specimen. ?31 Units or greater..... Positive-Suggestive of ? autoimmune hepatitis type 1 ? or chronic active hepatitis. F-actin IgG antibodies have been shown to have increased sensitivity for autoimmune hepatitis (AIH) but lower specificity than smooth muscle antibodies (SMA). F-actin IgG antibodies can also be seen in SMA-negative disease controls (non-AIH), especially in patients with primary biliary cirrhosis and chronic hepatitis C infections. Some patients with AIH may be SMA-positive but negative for F-actin IgG. Consider testing for SMA by IFA if suspicion for AIH is strong.Performed By: [facility] [place] [address] [id number] Director: Bakari Auguste MD, PhDCLIA Number: [id number] [facility]-[id number] 16:55:51* Test Item Value Reference Range Interpretation Comme nts ANTI-SCL70 (test code = 8071603541) Negative Negative SERGEI (test code = SERGEI) Positive - Antibod y detected.Negative - No antibody detected. Lab Interpretation (test code = 82323-6) Normal [facility]-SSA(RO)2024-02-11 16:55:51* Test Item Value Reference Range Interpretation Comme nts ANTI-SSA(RO) (test code = 3086786274) Negative Negative SERGEI (test code = SERGEI) Positive - Antibod y detected.Negative - No antibody detected. Lab Interpretation (test code = 41469-3) Normal [facility]-SSB(LA)2024-02-11 16:55:51* Test Item Value Reference Range Interpretation Comme nts Anti-SSB(LA) (test code = 5698831921) Negative Negative SERGEI (test code = SERGEI) Positive - Antibod y detected.Negative - No antibody detected. Lab Interpretation (test code = 61850-2) Normal [facility]-Double Stranded [id number] 16:55:51* Test Item Value Reference Range Interpretation Comme nts ANTI-DSDNA (test code = 0630460401) 0.0-4.0 SERGEI (test code = SERGEI) Negative ? ?< or = 4 IU/mLPositive ? ? ?> or = 10 IU/mLIndeterminate ?5-9 IU/mL Lab Interpretation (test code = 11239-9) Normal [facility] HospitalC4 Wcxwrkwczy6940-94-96 16:31:38* Test Item Value Reference Range Interpretation Comme nts C4 (test code = 0381510433) 20 mg/dL 20-59 Lab Interpretation (test cod e = 63343-6) Normal [facility] HospitalC3 Vnbloswdvm4300-24-41 16:31:37* Test Item Value Reference Range Interpretation Comme nts C3 (test code = 3951298805) 95 mg/dL 86-184 Lab Interpretation (test cod e = 49127-3) Normal [facility] HospitalIntact PTH Calcium Iettx3021-66-94 16:25:54* Test Item Value Reference Range Interpretation Comme [facility] PTH-INTACT (test code = 4561866398) 49.6 pg/mL 12.0-88.0 PTH-CA Interpretation (test code = 7683081424) PTH IS Appropria te for Calcium CALCIUM (test code = 0895306183) 9.4 mg/dL 8.6-10.6 [facility] HospitalVitamin D, [id number] 16:24:47* Test Item Value Reference Range Interpretation Comme [facility] VIT D 25OH (test code = 61587-8) 22 ng/mL 25-80 L SEGREI (test code = SERGEI) Deficiency: <20 ng/mLInsufficiency: 20-24 ng/mLOptimal: 25-80 ng/mL Lab Interpretation (test code = 04766-4) Abnormal [facility] HospitalHepatitis B Surface Ptjqcotc3128-13-61 23:59:33* Test Item Value Reference Range Interpretation Comme [facility] HBsAB (test code = 5017664358) Negative HBsAb Semi-Quantitative (test code = 9518393902) 0.70 mIU/mL SERGEI (test code = SERGEI) Interpretation: ?Hepatitis B Surface Antibody ? Negative - Patient is considered to be not immune to infection with HBV. ? ? Positive - Anti-HBs detected at greater than or equal to 12 mIU/mL. ?Patient is considered to be immune to infection with HBV. ? [facility] HospitalHcv Dbaerryz4940-88-16 23:59:33* Test Item Value Reference Range Interpretation Comme nts HCV Ab (test code = 86635-7) Negative HCV Semi-Quantitative (test code = 20107-4) 0.01 [facility] HospitalHepatitis B Surface Fenkrzz3244-75-34 23:41:50 * Test Item Value Reference Range Interpretation Comme nts HBsAg Semi-Quantitative (richelle t code = 5195-3) 0.[address] [facility] HospitalGlycosylated Hemoglobin (A1C)2024-02-10 18:34:36* Test Item Value Reference Range Interpretation Comme [facility] HGB A1C (test code = 4548-4) 7.2 % 4.0-5.7 H SERGEI (test code = SERGEI) Reference RangesNormal: <5.7%Prediabetes: 5.7 - 6.4%Diabetes: > 6.5% Lab Interpretation (test code = 50362-8) Abnormal [facility] HospitalProstatic Specific Vdewyqz0700-22-61 18:19:02 * Test Item Value Reference Range Interpretation Comme [facility] PSA (test code = 2063971609) 0.83 ng/mL <=4.00 SERGEI (test code = SERGEI) Biotin has been reported to cause a negative bias, interpret results relative to patient's use of biotin.[employer] PSA assay was used. ?Results obtained with different test methods or kits may be different and cannot be used interchangeably. Lab Interpretation (test code = 31899-5) Normal [facility] HospitalN-Terminal Xfi-Dgr1686-10-16 17:57:20* Test Item Value Reference Range Interpretation Comme [facility] NT-proBNP (test code = 43279-5) 374 pg/mL <=125 SERGEI (test code = SERGEI) Result Indeterminate-Consid er causes of NT-proBNP elevation other than Heart failure such as acute coronary syndrome, pulmonary embolism, pulmonary hypertension, sepsis, stroke, and renal dysfunction. Lab Interpretation (test code = 89365-0) Abnormal [facility] [facility] HospitalMagnesium[facility]24-[facility] 17:49:37* Test Item Value Reference Range Interpretation Comme [facility] MAGNESIUM (test code = 4391602505) 1.7 mg/dL 1.7-2.4 Lab Interpretation (test cod e = 16455-1) Normal [facility] HospitalPhosphorus2024-10-16 17:49:17* Test Item Value Reference Range Interpretation Comme nts PHOSPHORUS (test code = 6611244319) 3.7 mg/dL 2.5-5.0 Lab Interpretation (test cod e = 00067-6) Normal [facility] HospitalUric [id number] 17:49:17* Test Item Value Reference Range Interpretation Comme nts URIC ACID (test code = 5600402730) 8.6 mg/dL 3.6-8.0 H Lab Interpretation (test cod e = 32458-4) Abnormal [facility] HospitalMEAS,POST-VOID RES,US,[id number] 19:32:00* Test Item Value Reference Range Interpretation Comme nts PVR (URINE VOLUME) (test cod e = 5193) 106 ml 0-100 A Lab Interpretation (test cod e = 79821-6) Abnormal [facility] GLUCOSE (AUTOMATED)2024-01-03 05:54:27* Test Item Value Reference Range Interpretation Comme nts POCT GLU (test code = 3148207012) 80 mg/dL 70-110 Lab Interpretation (test cod e = 64080-7) Normal [facility] Glucose (Age >30 Days) - Code Stroke 2024-01-03 05:10:00* Test Item Value Reference Range Interpretation Comme nts POCT Glu (age>30days) (test code = 3342) 80 mg/dL 70-110 Lab Interpretation (test cod e = 90805-5) Normal [facility] HospitalMR LUMBAR SPINE W WO [id number] 21:20:58EXAM: MR LUMBAR SPINE W WO CONTRAST HISTORY: Lumbar radiculopathy, symptoms persist with > 6 wkstreatment TECHNIQUE: MRI of lumbar spine was performed on 1.5 Jada before and afterintravenous administration of contrast. COMPARISON: Lumbar spine MRI dated 03/03/2023. FINDINGS: Interval postlaminectomy changes at L3-L4. Normal lumbar lordosis. The vertebral bodies are normal in height andalignment. Intraosseous hemangioma of L4 vertebral body. Bone marrow edema andenhancement at L3-L4 endplates, new from the prior scan. The conus medullaris terminates at T12. Crowding of cauda equina nerveroots at L3-L4 and L4-L5. Multilevel mild disc height loss and disc desiccation noted. At T12-L1, central disc protrusion with bilateral facet arthrosis result inmoderate spinal canal stenosis. No significant neural foraminal narrowing,unchanged from the prior scan. At L1-L2, diffuse disc bulge with bilateral facet arthrosis and ligamentumflavum thickening result in mild spinal canal stenosis and mild bilateralneural foraminal narrowing. At L2-L3, diffuse disc bulge with bilateral facet arthrosis and ligamentumflavum thickening result in mild spinal canal stenosis and mild bilateralneural foraminal narrowing. At L3-L4, there is right paracentral disc extrusion with caudal migrationfor approximately 1.4 cm along with facet arthrosis and posterior epiduralscar tissue results in moderate spinalcanal stenosis and severe bilateralneural foraminal narrowing. At L4-L5, diffuse disc bulge with bilateral facet arthrosis and ligamentumflavum thickening result in mild to moderate spinal canal stenosis andmoderate bilateral neural foraminal narrowing. At L5-S1, diffuse disc bulge with superimposed left paracentral discprotrusion impinges on the descending left S1 nerve root. Superimposedfacet arthrosis result in severe left and mild right neural foraminalnarrowing. No high-grade spinal canal stenosis. Aside from the scar tissue at the laminectomy bed, the paraspinal softtissues are unremarkable. [facility] Metabolic Panel (NA, K, CL, CO2, GLUCOSE, BUN, CREATININE, CA)2023-10-23 15:09:40* Test Item Value Reference Range Interpretation Comme nts NA (test code = 5399466037) 136 mmol/L 135-145 K (test code = 3911407626) 4.7 mmol/L 3.5-5.0 CL (test code = 0830945764) 105 mmol/L 98-108 CO2 TOTAL (test code = 0701954012) 27 mmol/L 23-31 AGAP (test code = 2592908261) 4 2-16 BUN (test code = 0377974834) 35 mg/dL 7-23 H GLUCOSE (test code = 7878486602) 204 mg/dL 70-110 H CREATININE (test code = 2160-0) 1.28 mg/dL 0.60-1.25 H CALCIUM (test code = 8508777558) 8.6 mg/dL 8.6-10.6 eGFR (test code = 97130-0) 63.3 mL/min/1.73m2 CKD-EPI eGFR (2020). Assuming creatinine has been stable day-to-day for at least three months, the eGFR indicates Category G2 (60 - 89 mL/min/1.73 m2) Lab Interpretation (test code = 06902-8) Abnormal [facility] without [id number] 14:43:35* Test Item Value Reference Range Interpretation Comme nts WBC (test code = 6690-2) 7.69 4.20-10.70 RBC (test code = 789-8) 4.05 4.26-5.52 L HGB (test code = 718-7) 8.3 g/dL 12.2-16.4 L HCT (test code = 4544-3) 28.6 % 38.4-49.3 L MCH (test code = 785-6) 20.5 pg 26.1-32.7 L MCV (test code = 787-2) 70.6 fL 81.7-95.6 L MCHC (test code = 786-4) 29.0 g/dL 31.2-35.0 L PLT (test code = 777-3) 371 150-328 H MPV (test code = 77968-4) 9.9 fL 9.8-13.0 RDW-CV (test code = 788-0) 22.1 % 12.1-15.4 H RDW-SD (test code = 51920-9) 54.4 fL 38.5-51.6 H NRBC x10^3 (test code = 8999610197) See_Comment [Automated Merfaca ge] The system which generated this result transmitted reference range: 10*3/?L. The reference range was not used to interpret this result as normal/abnormal. NRBC/100 WBC (test code = 8406756883) 0.0 0.0-10.0 IPF % (test code = 7149241941) Lab Interpretation (test code = 63148-6) Abnormal [facility] HospitalPOCT GLUCOSE (AUTOMATED)2023-10-23 12:40:59* Test Item Value Reference Range Interpretation Comme [facility] POCT GLU (test code = 7197855987) 143 mg/dL 70-110 H Lab Interpretation (test cod e = 59820-1) Abnormal [facility] HospitalPrepare Packed RBC (in units), 2 Units 2023-10-23 07:36:57* Test Item Value Reference Range Interpretation Comme [facility] Cross Match Result (test code = 4409) Compatible ISBT Blood Type Code (test code = 298454) 5100 Unit Blood Type (test code = 4410) O Pos Unit Number (test code = 4411) [id number] Blood Expiration Date & Time (test code = 563978) [id number] Status Information (test code = 4412) Issued Product Identification (test code = 4413) Red Blood Cells Product Code (test code = 4414) [id number] Performed at [facility] Laboratory Services - [facility] Blood [address] [place], [place] [address]Toll Free: [phone] No. [id number] [facility] HospitalGlycosylated Hemoglobin (A1C)2023-10-23 06:46:10* Test Item Value Reference Range Interpretation Comme [facility] HGB A1C (test code = 4548-4) 7.3 % 4.0-5.7 H SERGEI (test code = SERGEI) Reference RangesNormal: <5.7%Prediabetes: 5.7 - 6.4%Diabetes: > 6.5% Lab Interpretation (test code = 01660-8) Abnormal [facility] HospitalPOCT GLUCOSE (AUTOMATED)2023-10-23 02:48:30* Test Item Value Reference Range Interpretation Comme [facility] POCT GLU (test code = 2217007091) 139 mg/dL 70-110 H Lab Interpretation (test cod e = 48069-5) Abnormal [facility] HospitalType and Screen - ONCE [id number] 00:27:00 * Test Item Value Reference Range Interpretation Comme nts ABO & RH (test code = 20) O POSITIVE IAT (test code = 1185) Negative [facility] ABDOMEN PELVIS WO [id number] 00:19:43EXAM: CT ABDOMEN PELVIS WO CONTRAST HISTORY: 63 years-old male with right flank pain radiating to the back. A TECHNIQUE: Contiguous axial imaging from the level of the lung basesthrough the proximal thighs was performed without the intravenousadministration of contrast. Coronal and sagittal reconstr uctions wereobtained. COMPARISON: CT abdomen pelvis 10/05/2023. FINDINGS: Please note that the sensitivity for detection of focal lesions or vasculardisease is markedly reduced without intravenous contrast. LOWER THORAX: The lung bases are clear. LIVER: The liver is normal in size and contour. No focal hepatic lesion isseen within the limitations of a non-contrasted examination. GALLBLADDER AND BILIARY TREE: The gallbladder appears unremarkable. Noradiopaque gallstones are seen. No intra or extrahepatic biliary ductaldilation is visualized. SPLEEN: The spleen is normal in size. PANCREAS: No ductal dilation or masses are visualized. ADRENAL GLANDS: No adrenal masses are seen. KIDNEYS: A 2 mm stone is seen in the left renal lower pole and a punctatecalcification/stone is seen in the right upp er pole. No hydronephrosis ?orhydroureter. No contour deforming solid masses are visualized within thelimitation of noncontrast CT. PELVIS/BLADDER: The bladder is partially distended and appearsunremarkable. Nonspecific prostatic calcifications. GI TRACT: No dilation or bowel wall thickening is seen. The appendixappears unremarkable. PERITONEUM AND RETROPERITONEUM: No intra-abdominal free air or fluidcollection is visualized. LYMPH NODES: No enlarged intra- abdominal or pelvic lymph nodes are found. VESSELS: Mild atherosclerosis of the abdominal aorta is seen. BONES AND SOFT TISSUES: No suspicious lytic or sclerotic bony lesions arepresent. Degenerative change in the spine. Posterior decompressiveprocedure in the lumbar spine at L3-L4.[facility] WITH [id number] 23:30:44* Test Item Value Reference Range Interpretation Comme nts WBC (test code = 6690-2) 10.50 4.20-10.70 RBC (test code = 789-8) 3.62 4.26-5.52 L HGB (test code = 718-7) 6.1 g/dL 12.2-16.4 L HCT (test code = 4544-3) 23.6 % 38.4-49.3 L MCV (test code = 787-2) 65.2 fL 81.7-95.6 L MCH (test code = 785-6) 16.9 pg 26.1-32.7 L MCHC (test code = 786-4) 25.8 g/dL 31.2-35.0 L RDW-SD (test code = 97788-1) 41.2 fL 38.5-51.6 RDW-CV (test code = 788-0) 17.5 % 12.1-15.4 H PLT (test code = 777-3) 438 150-328 H MPV (test code = 24693-3) 9.7 fL 9.8-13.0 L NRBC/100 WBC (test code = 2952875962) 0.0 0.0-10.0 NRBC x10^3 (test code = 5239072466) See_Comment [Automated messa ge] The system which generated this result transmitted reference range: 10*3/?L. The reference range was not used to interpret this result as normal/abnormal. SEG % (test code = 98497-3) 63 % 33-76 BAND % (test code = 50149-4) 4 % 0-1 H LYMPH % (test code = 80369-9) 24 % 14-54 MONO % (test code = 70466-0) 6 % 0-4 H EOS % (test code = 10195-9) 3 % 0-3 ANC (test code = 753-4) 7.04 10*3/uL 1.99-6.95 H ELLIPTO/OVAL (test code = 24309-5) 2+ See_Comment A [Automated messa ge] The system which generated this result transmitted reference range: (none). The reference range was not used to interpret this result as normal/abnormal. SCHISTOCYTES (test code = 800-3) 1+ A TARGET CELLS (test code = 86541-4) 2+ See_Comment A [Automated messa ge] The system which generated this result transmitted reference range: (none). The reference range was not used to interpret this result as normal/abnormal. TEARDROP CELLS (test code = 7791-7) 2+ See_Comment A [Automated messa ge] The system which generated this result transmitted reference range: (none). The reference range was not used to interpret this result as normal/abnormal. PLT ESTIMATE (test code = 9317-9) Increased Normal A Lab Interpretation (test code = 16692-2) Abnormal [facility] [id number] 23:08:15* Test Item Value Reference Range Interpretation Comme nts TROPONIN I (test code = 8433615875) <=0.034 SERGEI (test code = SERGEI) Reference (Normal) Range (defined by the 99th percentile reference limit): <= 0.034 ng/mL Note: Cardiac troponin begins to rise 3-4 hours after the onset of ischemia. Repeat in 4-6 hours if the sample was drawn within 3-4 hours of the onset of the symptom and found normal. Diagnosis of myocardial injury is made with acute changes in cTn concentrations with at least one serial sample above the 99th percentile upper reference limit (URL), taken together with the patient's clinical presentation. Biotin has been reported to cause a negative bias, interpret results relative to patient's use of biotin. Lab Interpretation (test code = 39902-8) Normal [facility] HospitalN-TERMINAL [id number] 23:06:18* Test Item Value Reference Range Interpretation Comme [facility] NT-proBNP (test code = 07221-0) 264 pg/mL <=125 SERGEI (test code = SERGEI) Result Indeterminate-Consid er causes of NT-proBNP elevation other than Heart failure such as acute coronary syndrome, pulmonary embolism, pulmonary hypertension, sepsis, stroke, and renal dysfunction. Lab Interpretation (test code = 32321-2) Abnormal [facility] HospitalXR CHEST 1 [id number] 22:58:31EXAM: XR CHEST 1 10/22/2023 5:08 PM HISTORY: 63 years-old Male with bowden . TECHNIQUE: Portable AP view of the chest. COMPARISON: 11/11/2022 FINDINGS: Lines and tubes: None. Cardiomediastinal: The cardiomediastinal silhouette is unremarkable. Lungs and pleura: The lungs are clear. No focal consolidation,pneumothorax, or pleural effusion is seen. Included osseous structures show no acute abnormality. [facility]. METABOLIC PANEL (98088)2023-10-22 22:56:38* Test Item Value Reference Range Interpretation Comme nts NA (test code = 2514812631) 138 mmol/L 135-145 K (test code = 0620732134) 4.9 mmol/L 3.5-5.0 CL (test code = 1060362557) 104 mmol/L 98-108 CO2 TOTAL (test code = 6527183439) 24 mmol/L 23-31 AGAP (test code = 0362808946) 10 2-16 BUN (test code = 1610750895) 34 mg/dL 7-23 H GLUCOSE (test code = 4059554421) 159 mg/dL 70-110 H CREATININE (test code = 2160-0) 1.32 mg/dL 0.60-1.25 H TOTAL BILI (test code = 8087897280) 0.6 mg/dL 0.1-1.1 CALCIUM (test code = 9943598967) 9.2 mg/dL 8.6-10.6 T PROTEIN (test code = 3269668156) 7.6 g/dL 6.3-8.2 ALBUMIN (test code = 8582216648) 4.2 g/dL 3.5-5.0 ALK PHOS (test code = 8275974894) 83 U/L 34-122 ALTv (test code = 1742-6) 14 U/L 5-50 AST(SGOT) (test code = 6789636609) 19 U/L 13-40 eGFR (test code = 25783-8) 61.0 mL/min/1.73m2 CKD-EPI eGFR (2020). Assuming creatinine has been stable day-to-day for at least three months, the eGFR indicates Category G2 (60 - 89 mL/min/1.73 m2) Lab Interpretation (test code = 72063-0) Abnormal [facility] HospitalCT ABDOMEN PELVIS WO [id number] 07:25:20ORDERING PHYSICIAN: DOUG PUENTE ABDOMEN AND PELVIS CT WITHOUT INTRAVENOUS CONTRAST. DATE: ?10/05/2023 2:23 AM CLINICAL INDICATIONS: ?Flank pain, kidney stone suspected TECHNIQUE: ?Axial computed tomographic images of the abdomen and pelviswere obtained without intravenous contrast. CT scan was pe rformed accordingto ALARA (As Low as Reasonably Achievable). COMPARISON: ?None. Abdomen findings: The lung bases are clear. The cardiac apex isunremarkable. The kidneys, ureters and urinary bladder have an unremarkable appearance.No evidence for obstructing ureteral calculus, hydroureter orhydronephrosis is present bilaterally. The liver, spleen, pancreas, gallbladder and adrenal glands have anunremarkable noncontrast appearance. The stomach, small bowel and colon demonstrate no evidence for obstructionor inflammation. A normal appendix is present right lower quadrant. No adenopathy or free fluid are identified in the abdomen. No acute osseousabnormality is demonstrated. Pelvis findings: The small bowel and colon are normal caliber. The urinarybladder demonstrates no abnormality. The prostate gland is within normallimits of size. No adenopathy or free fluid are identified in the pelvis.No acute osseous abnormality is identified.[facility]XR HIPS 2 VW [id number] 05:47:52Ordering physician: DOUG PUENTE INDICATION: Right hip pain COMPARISON: Bilateral hips dated 11/12/2022 FINDINGS: 2 views of the right hip. No acute fracture or dislocation isappreciated. There is mild osteoarthritis, with loss of joint space.[facility] HospitalAnti-Nuclear Antibody-Pathologist [id number] 23:54:51ANA - Pathologist InterpretationANA HEp-2 IIFA Pathologist Interpretation Report Patient Name: Lilly Zheng? ?Antinuclear Antibody (SATISH) Test (Anti-Cell Antibodies Test) Indirect Immunofluorescence Assay on HEp-2 Cells Screening titer: 1:80 (adults, > 18 years old), 1:40 (pediatrics, <= 18 years old)?Result: The antinuclear antibody (SATISH) test is positive, demonstrating the AC-4/5-Speckled Pattern with a titer of 1:160. A titer greater than or equal to 1:160 is generally considered to be clinically significant. ? General Remarks: The AC-4/5-Speckled Pattern is one ofthe least specific SATISH immunofluorescent patterns, associated with many autoantibodies, including antibodies against SS-A (Ro), SS-B (La), Mi-2, TIF1-gamma, TIF1-beta, Ku, U1RNP, U2RNP, [place], RNA john ymerase III, and other currently unspecified autoantigens. As such, this pattern may be found in a wide variety of systemic autoimmune rheumatic diseases, including Sjogren's syndrome, systemic lupuserythematosus (SLE), systemic sclerosis, mixed connective tissue disease (MCTD), undifferentiated connective tissue disease (UCTD), dermatomyositis, polymyositis, and systemic sclerosis- autoimmune myopathy overlap syndrome. Additionally, a nuclear speckled pattern may be found in organ-specific autoimmune diseases (such as autoimmune thyroid disease, autoimmune hepatitis, etc.), other types of autoimmune disease, and certain non-autoimmune diseases/conditions. This pattern may also be seen in re latively healthy individuals, particularly at lower titers. For more information, the InternationalConsensus on SATISH Patterns (ICAP) guidelines can be found at www.anapatterns.org. SATISH pattern clinical associations are neither absolute nor diagnostic, but they may serve as a guide to differential diagnosis formation and/or subsequent follow-up test selection in the appropriate clinical setting. ?The SATISH test is an important screening test for systemic autoimmune rheumatic disease (SARD). However, the SATISH test is non-specific for SARD and may be positive in a variety of clinical settings, including autoimmune, inflammatory, infectious, and neoplastic/malignant conditions, as well as due to certain medications. Additionally, SATISH positivity may be seen in varying percentages of healthy individuals, especially at lower titers, in the healthy elderly population, and in individuals with a family history of rheumatic disease. Therefore, a diagnosis cannot be based exclusively on SATISH detection and/or pattern and thus should be made via the integration of patient history, physical exam findings, and other diagnostic tests as clinically indicated. Marija Sanchez MD ?10/03/2023 ?6:51 PM 10/03/2023 6:54 PM [facility] LABORATORY SERVICESUnEnnis Regional Medical CenterAnti-Nuclear Antibody-Pathologist [id number] 23:54:51ANA - Pathologist InterpretationANA HEp-2 IIFA Pathologist Interpretation Report Patient Name: Lilly Zheng? ?Antinuclear Antibody (SATISH) Test (Anti-Cell Antibodies Test) Indirect I mmunofluorescence Assay on HEp-2 Cells Screening titer: 1:80 (adults, > 18 years old), 1:40 (pediatrics, <= 18 years old)?Result: The antinuclear antibody (SATISH) test is positive, demonstrating the AC-4/5-Speckled Pattern with a titer of 1:160. A titer greater than or equal to 1:160 is generally considered to be clinically significant. ? General Remarks: The AC-4/5-Speckled Pattern is one of the least specific SATISH immunofluorescent patterns, associated with many autoantibodies, including antibodies against SS-A (Ro), SS-B (La), Mi-2, TIF1- gamma, TIF1-beta, Ku, U1RNP, U2RNP, [place], RNA polymerase III, and other currently unspecified autoantigens. As such, this pattern may be found in a wide variety of systemic autoimmune rheumatic diseases, including Sjogren's syndrome, systemic lupuserythematosus (SLE), systemic sclerosis, mixed connective tissue disease (MCTD), undifferentiated connective tissue disease (UCTD), dermatomyositis, polymyositis, and systemic sclerosis-autoimmune myopathy overlap syndrome. Additionally, a nuclear speckled pattern may be found in organ-specific autoimmune diseases (such as autoimmune thyroid disease, autoimmune hepatitis, etc.), other types of autoimmune disease, and certain non- autoimmune diseases/conditions. This pattern may also be seen in relatively healthy individuals, particularly at lower titers. For more information, the InternationalConsensus on SATISH Patterns (ICAP) guidelines can be found at www.anapatterns.org. SATISH pattern clinical associations are neither absolute nor diagnostic, but they may serve as a guide to differential diagnosis formation and/or subsequent follow-up test selection in the appropriate clinical setting. ?The SATISH test is an important screening test for systemic autoimmune rheumatic disease (SARD). However, the SATISH test is non-specific for SARD and may be positive in a variety of clinical settings, including autoimmune, inflammatory, infectious, and neoplastic/malignant conditions, as well as due to certain medications. Additionally, SATISH positivity may be seen in varying percentages of healthy individuals, especially at lower titers, in the healthy elderly population, and in individuals with a family history of rheumatic disease. Therefore, a diagnosis cannot be based exclusively on SATISH detection and/or pattern and thus should be made via the integration of patient history, physical exam findings, and other diagnostic tests as clinically indicated. Marija Sanchez MD ?10/03/2023 ?6:51 PM 10/03/2023 6:54 PM [facility] HospitalAnti-Nuclear Antibody-Pathologist [id number] 23:54:51ANA - Pathologist InterpretationANA HEp-2 IIFA Pathologist Interpretation Report Patient Name: Lilly Zheng? ?Antinuclear Antibody (SATISH) Test (Anti-Cell Antibodies Test) Indirect I mmunofluorescence Assay on HEp-2 Cells Screening titer: 1:80 (adults, > 18 years old), 1:40 (pediatrics, <= 18 years old)?Result: The antinuclear antibody (SATISH) test is positive, demonstrating the AC-4/5-Speckled Pattern with a titer of 1:160. A titer greater than or equal to 1:160 is generally considered to be clinically significant. ? General Remarks: The AC-4/5-Speckled Pattern is one of the least specific SATISH immunofluorescent patterns, associated with many autoantibodies, including antibodies against SS-A (Ro), SS-B (La), Mi-2, TIF1- gamma, TIF1-beta, Ku, U1RNP, U2RNP, [place], RNA polymerase III, and other currently unspecified autoantigens. As such, this pattern may be found in a wide variety of systemic autoimmune rheumatic diseases, including Sjogren's syndrome, systemic lupuserythematosus (SLE), systemic sclerosis, mixed connective tissue disease (MCTD), undifferentiated connective tissue disease (UCTD), dermatomyositis, polymyositis, and systemic sclerosis-autoimmune myopathy overlap syndrome. Additionally, a nuclear speckled pattern may be found in organ-specific autoimmune diseases (such as autoimmune thyroid disease, autoimmune hepatitis, etc.), other types of autoimmune disease, and certain non- autoimmune diseases/conditions. This pattern may also be seen in relatively healthy individuals, particularly at lower titers. For more information, the InternationalConsensus on SATISH Patterns (ICAP) guidelines can be found at www.anapatterns.org. SATISH pattern clinical associations are neither absolute nor diagnostic, but they may serve as a guide to differential diagnosis formation and/or subsequent follow-up test selection in the appropriate clinical setting. ?The SATISH test is an important screening test for systemic autoimmune rheumatic disease (SARD). However, the SATISH test is non-specific for SARD and may be positive in a variety of clinical settings, including autoimmune, inflammatory, infectious, and neoplastic/malignant conditions, as well as due to certain medications. Additionally, SATISH positivity may be seen in varying percentages of healthy individuals, especially at lower titers, in the healthy elderly population, and in individuals with a family history of rheumatic disease. Therefore, a diagnosis cannot be based exclusively on SATISH detection and/or pattern and thus should be made via the integration of patient history, physical exam findings, and other diagnostic tests as clinically indicated. Marija Sacnhez MD ?10/03/2023 ?6:51 PM 10/03/2023 6:54 PM [facility] [id number] 22:26:36 * Test Item Value Reference Range Interpretation Comme nts SATISH Titer by IFA (test code = 2843093903) 1:160 SATISH Pattern (test code = 7260796722) Speckled SERGEI (test code = SERGEI) Anti-nuclear antib odies are seen in a variety of autoimmune diseases and may also be seen in low titers in otherwise normal individuals without evidence of autoimmune disease. In general, a titer greater than or equal to 1:160 is considered significant. For further information, contact the appropriate Specialist. For additional SATISH tests, refer to the Laboratory Test Directory. The specimen will be held for [address] [facility] [id number] 22:26:36 * Test Item Value Reference Range Interpretation Comme nts SATISH Titer by IFA (test code = 1153832421) 1:160 SATISH Pattern (test code = 3772996228) Speckled SERGEI (test code = SERGEI) Anti-nuclear antib odies are seen in a variety of autoimmune diseases and may also be seen in low titers in otherwise normal individuals without evidence of autoimmune disease. In general, a titer greater than or equal to 1:160 is considered significant. For further information, contact the appropriate Specialist. For additional SATISH tests, refer to the Laboratory Test Directory. The specimen will be held for 7 days. [facility] [id number] 22:26:36 * Test Item Value Reference Range Interpretation Comme nts SATISH Titer by IFA (test code = 6370182866) 1:160 SATISH Pattern (test code = 0501438728) Speckled SERGEI (test code = SERGEI) Anti-nuclear antib odies are seen in a variety of autoimmune diseases and may also be seen in low titers in otherwise normal individuals without evidence of autoimmune disease. In general, a titer greater than or equal to 1:160 is considered significant. For further information, contact the appropriate Specialist. For additional SATISH tests, refer to the Laboratory Test Directory. The specimen will be held for [address] [facility] [id number] 21:42:54* Test Item Value Reference Range Interpretation Comme nts SATISH (test code = 1204640169) Positive Negative A SERGEI (test code = SERGEI) Negative: ?No Anti-Nuclear Antibodies detected by IFA. Positive: ?SATISH IFA screen performed with a 1:80 dilution in adults and a 1:40 dilution in pediatrics. ?A titer is performed and reported separately when the SATISH is "Positive" or when "Cytoplasmic staining is observed." Lab Interpretation (test code = 81283-3) Abnormal [facility] [id number] 21:42:54* Test Item Value Reference Range Interpretation Comme nts SATISH (test code = 8234160525) Positive Negative A SERGEI (test code = SERGEI) Negative: ?No Anti-Nuclear Antibodies detected by IFA. Positive: ?SATISH IFA screen performed with a 1:80 dilution in adults and a 1:40 dilution in pediatrics. ?A titer is performed and reported separately when the SATISH is "Positive" or when "Cytoplasmic staining is observed." Lab Interpretation (test code = 23940-2) Abnormal [facility] [id number] 21:42:54* Test Item Value Reference Range Interpretation Comme nts SATISH (test code = 8816190867) Positive Negative A SERGEI (test code = SERGEI) Negative: ?No Anti-Nuclear Antibodies detected by IFA. Positive: ?SATISH IFA screen performed with a 1:80 dilution in adults and a 1:40 dilution in pediatrics. ?A titer is performed and reported separately when the SATISH is "Positive" or when "Cytoplasmic staining is observed." Lab Interpretation (test code = 49748-1) Abnormal [facility] [id number] 23:25:21* Test Item Value Reference Range Interpretation Comme nts ESR (test code = 34144-6) 36 0-10 H Lab Interpretation (test cod e = 81617-1) Abnormal [facility] [id number] 23:25:21* Test Item Value Reference Range Interpretation Comme nts ESR (test code = 23694-3) 36 0-10 H Lab Interpretation (test cod e = 10196-6) Abnormal [facility] [id number] 23:25:21* Test Item Value Reference Range Interpretation Comme nts ESR (test code = 20619-4) 36 0-10 H Lab Interpretation (test cod e = 18948-8) Abnormal [facility] Hemoglobin A1C [id number] 14:45:00* Test Item Value Reference Range Interpretation Comme nts POCT HBA1C (test code = 4548-4) 6.8 % 4-6 A Lab Interpretation (test cod e = 93225-1) Abnormal [facility] GLUCOSE (AUTOMATED)2023-05-22 15:10:09* Test Item Value Reference Range Interpretation Comme nts POCT GLU (test code = 2910204656) 304 mg/dL 70-110 H Notified Provide r Lab Interpretation (test code = 86600-2) Abnormal [facility] GLUCOSE (AUTOMATED)2023-05-22 02:46:48* Test Item Value Reference Range Interpretation Comme nts POCT GLU (test code = 5361315588) 293 mg/dL 70-110 H Lab Interpretation (test cod e = 43769-4) Abnormal [facility] GLUCOSE (AUTOMATED)2023-05-22 00:06:57* Test Item Value Reference Range Interpretation Comme nts POCT GLU (test code = 1500166033) 376 mg/dL 70-110 H Lab Interpretation (test cod e = 92365-8) Abnormal [facility] GLUCOSE (AUTOMATED)2023-05-21 21:42:54* Test Item Value Reference Range Interpretation Comme nts POCT GLU (test code = 6439598295) 488 mg/dL 70-110 HH Lab Interpretation (test cod e = 41667-6) Abnormal [facility] GLUCOSE (AUTOMATED)2023-05-21 21:40:58* Test Item Value Reference Range Interpretation Comme nts POCT GLU (test code = 8945441183) 462 mg/dL 70-110 HH Lab Interpretation (test cod e = 41073-2) Abnormal [facility] GLUCOSE (AUTOMATED)2023-05-21 18:42:23* Test Item Value Reference Range Interpretation Comme nts POCT GLU (test code = 8939159756) 373 mg/dL 70-110 H Lab Interpretation (test cod e = 24324-0) Abnormal [facility] GLUCOSE (AUTOMATED)2023-05-21 13:47:47* Test Item Value Reference Range Interpretation Comme nts POCT GLU (test code = 0140026899) 262 mg/dL 70-110 H Lab Interpretation (test cod e = 18800-2) Abnormal [facility] GLUCOSE (AUTOMATED)2023-05-21 13:47:47* Test Item Value Reference Range Interpretation Comme nts POCT GLU (test code = 7877285946) 262 mg/dL 70-110 H Lab Interpretation (test cod e = 49736-5) Abnormal [facility] GLUCOSE (AUTOMATED)2023-05-21 13:02:53* Test Item Value Reference Range Interpretation Comme nts POCT GLU (test code = 8762288194) 252 mg/dL 70-110 H Lab Interpretation (test cod e = 49976-0) Abnormal [facility] GLUCOSE (AUTOMATED)2023-05-21 13:02:53* Test Item Value Reference Range Interpretation Comme nts POCT GLU (test code = 9525328266) 252 mg/dL 70-110 H Lab Interpretation (test cod e = 58701-7) Abnormal [facility] Metabolic Panel (NA, K, CL, CO2, GLUCOSE, BUN, CREATININE, CA)2023-05-21 12:09:31* Test Item Value Reference Range Interpretation Comme nts NA (test code = 7964767669) 136 mmol/L 135-145 K (test code = 6754338752) 4.3 mmol/L 3.5-5.0 CL (test code = 3800095300) 101 mmol/L 98-108 CO2 TOTAL (test code = 4841791397) 28 mmol/L 23-31 AGAP (test code = 5900781949) 7 2-16 BUN (test code = 5818303650) 41 mg/dL 7-23 H GLUCOSE (test code = 7738155621) 272 mg/dL 70-110 H CREATININE (test code = 5122931326) 1.58 mg/dL 0.60-1.25 H CALCIUM (test code = 1822095317) 8.6 mg/dL 8.6-10.6 eGFR (test code = 33421-1) 49.5 mL/min/1.73m2 CKD-EPI eGFR (2021). Assuming creatinine has been stable day-to-day for at least three months, the eGFR indicates Category G3a (45 - 59 mL/min/1.73 m2) Lab Interpretation (test code = 16623-0) Abnormal [facility] Metabolic Panel (NA, K, CL, CO2, GLUCOSE, BUN, CREATININE, CA)2023-05-21 12:09:31* Test Item Value Reference Range Interpretation Comme nts NA (test code = 2214516001) 136 mmol/L 135-145 K (test code = 5596531375) 4.3 mmol/L 3.5-5.0 CL (test code = 3399202549) 101 mmol/L 98-108 CO2 TOTAL (test code = 1079842521) 28 mmol/L 23-31 AGAP (test code = 8943227313) 7 2-16 BUN (test code = 5381759885) 41 mg/dL 7-23 H GLUCOSE (test code = 1139293395) 272 mg/dL 70-110 H CREATININE (test code = 6602062673) 1.58 mg/dL 0.60-1.25 H CALCIUM (test code = 1470042009) 8.6 mg/dL 8.6-10.6 eGFR (test code = 24510-9) 49.5 mL/min/1.73m2 CKD-EPI eGFR (2020). Assuming creatinine has been stable day-to-day for at least three months, the eGFR indicates Category G3a (45 - 59 mL/min/1.73 m2) Lab Interpretation (test code = 69905-1) Abnormal [facility] With [id number] 11:47:46* Test Item Value Reference Range Interpretation Comme nts WBC (test code = 6690-2) 11.54 See_Comment H [Automated messa ge] The system which generated this result transmitted reference range: 4.20 - 10.70 10*3/?L. The reference range was not used to interpret this result as normal/abnormal. RBC (test code = 789-8) 4.17 See_Comment L [Automated messa ge] The system which generated this result transmitted reference range: 4.26 - 5.52 10*6/?L. The reference range was not used to interpret this result as normal/abnormal. HGB (test code = 718-7) 7.8 g/dL 12.2-16.4 L HCT (test code = 4544-3) 27.6 % 38.4-49.3 L MCV (test code = 787-2) 66.2 fL 81.7-95.6 L MCH (test code = 785-6) 18.7 pg 26.1-32.7 L MCHC (test code = 786-4) 28.3 g/dL 31.2-35.0 L RDW-SD (test code = 82272-8) 41.4 fL 38.5-51.6 RDW-CV (test code = 788-0) 17.8 % 12.1-15.4 H PLT (test code = 777-3) 301 See_Comment [Automated messa ge] The system which generated this result transmitted reference range: 150 - 328 10*3/?L. The reference range was not used to interpret this result as normal/abnormal. MPV (test code = 10862-8) 9.8 fL 9.8-13.0 NRBC/100 WBC (test code = 5160607584) 0.0 See_Comment [Automated me ssage] The system which generated this result transmitted reference range: 0.0 - 10.0 /100 WBCs. The reference range was not used to interpret this result as normal/abnormal. NRBC x10^3 (test code = 0119892633) See_Comment [Automated messa ge] The system which generated this result transmitted reference range: 10*3/?L. The reference range was not used to interpret this result as normal/abnormal. GRAN MAT (NEUT) % (test code = 770-8) 74.0 % IMM GRAN % (test code = 0647125938) 0.90 % LYMPH % (test code = 736-9) 17.2 % MONO % (test code = 5905-5) 7.1 % EOS % (test code = 713-8) 0.6 % BASO % (test code = 706-2) 0.2 % GRAN MAT x10^3(ANC) (test code = 4236321656) 8.55 10*3/uL 1.99-6.95 H IMM GRAN x10^3 (test code = 3457765801) 0.10 10*3/uL 0.00-0.06 H LYMPH x10^3 (test code = 731-0) 1.98 10*3/uL 1.09-3.23 MONO x10^3 (test code = 742-7) 0.82 10*3/uL 0.36-1.02 EOS x10^3 (test code = 711-2) 0.07 10*3/uL 0.06-0.53 BASO x10^3 (test code = 704-7) 0.01-0.09 Lab Interpretation (test code = 71253-4) Abnormal [facility] With [id number] 11:47:46* Test Item Value Reference Range Interpretation Comme nts WBC (test code = 6690-2) 11.54 See_Comment H [Automated messa ge] The system which generated this result transmitted reference range: 4.20 - 10.70 10*3/?L. The reference range was not used to interpret this result as normal/abnormal. RBC (test code = 789-8) 4.17 See_Comment L [Automated messa ge] The system which generated this result transmitted reference range: 4.26 - 5.52 10*6/?L. The reference range was not used to interpret this result as normal/abnormal. HGB (test code = 718-7) 7.8 g/dL 12.2-16.4 L HCT (test code = 4544-3) 27.6 % 38.4-49.3 L MCV (test code = 787-2) 66.2 fL 81.7-95.6 L MCH (test code = 785-6) 18.7 pg 26.1-32.7 L MCHC (test code = 786-4) 28.3 g/dL 31.2-35.0 L RDW-SD (test code = 78531-6) 41.4 fL 38.5-51.6 RDW-CV (test code = 788-0) 17.8 % 12.1-15.4 H PLT (test code = 777-3) 301 See_Comment [Automated messa ge] The system which generated this result transmitted reference range: 150 - 328 10*3/?L. The reference range was not used to interpret this result as normal/abnormal. MPV (test code = 81589-0) 9.8 fL 9.8-13.0 NRBC/100 WBC (test code = 0622455031) 0.0 See_Comment [Automated me ssage] The system which generated this result transmitted reference range: 0.0 - 10.0 /100 WBCs. The reference range was not used to interpret this result as normal/abnormal. NRBC x10^3 (test code = 8034512616) See_Comment [Automated messa ge] The system which generated this result transmitted reference range: 10*3/?L. The reference range was not used to interpret this result as normal/abnormal. GRAN MAT (NEUT) % (test code = 770-8) 74.0 % IMM GRAN % (test code = 0722568944) 0.90 % LYMPH % (test code = 736-9) 17.2 % MONO % (test code = 5905-5) 7.1 % EOS % (test code = 713-8) 0.6 % BASO % (test code = 706-2) 0.2 % GRAN MAT x10^3(ANC) (test code = 7559876351) 8.55 10*3/uL 1.99-6.95 H IMM GRAN x10^3 (test code = 8915436805) 0.10 10*3/uL 0.00-0.06 H LYMPH x10^3 (test code = 731-0) 1.98 10*3/uL 1.09-3.23 MONO x10^3 (test code = 742-7) 0.82 10*3/uL 0.36-1.02 EOS x10^3 (test code = 711-2) 0.07 10*3/uL 0.06-0.53 BASO x10^3 (test code = 704-7) 0.01-0.09 Lab Interpretation (test code = 82759-0) Abnormal [facility] GLUCOSE (AUTOMATED)2023-05-21 09:52:16* Test Item Value Reference Range Interpretation Comme nts POCT GLU (test code = 0184349970) 349 mg/dL 70-110 H Lab Interpretation (test cod e = 48528-5) Abnormal [facility] GLUCOSE (AUTOMATED)2023-05-21 09:52:16* Test Item Value Reference Range Interpretation Comme nts POCT GLU (test code = 4879620313) 349 mg/dL 70-110 H Lab Interpretation (test cod e = 81534-9) Abnormal [facility] GLUCOSE (AUTOMATED)2023-05-21 05:20:31* Test Item Value Reference Range Interpretation Comme nts POCT GLU (test code = 5250667401) 453 mg/dL 70-110 HH Lab Interpretation (test cod e = 48286-1) Abnormal [facility] GLUCOSE (AUTOMATED)2023-05-21 05:20:31* Test Item Value Reference Range Interpretation Comme nts POCT GLU (test code = 3273024494) 453 mg/dL 70-110 HH Lab Interpretation (test cod e = 89961-2) Abnormal [facility] GLUCOSE (AUTOMATED)2023-05-21 02:32:35* Test Item Value Reference Range Interpretation Comme nts POCT GLU (test code = 0428015236) 500 mg/dL 70-110 HH Lab Interpretation (test cod e = 65298-8) Abnormal [facility] GLUCOSE (AUTOMATED)2023-05-21 02:32:35* Test Item Value Reference Range Interpretation Comme nts POCT GLU (test code = 3102056773) 500 mg/dL 70-110 HH Lab Interpretation (test cod e = 83901-7) Abnormal [facility] GLUCOSE (AUTOMATED)2023-05-21 00:06:34* Test Item Value Reference Range Interpretation Comme nts POCT GLU (test code = 3765532478) 539 mg/dL 70-110 HH Lab Interpretation (test cod e = 59969-5) Abnormal [facility] GLUCOSE (AUTOMATED)2023-05-21 00:06:34* Test Item Value Reference Range Interpretation Comme nts POCT GLU (test code = 1811507685) 539 mg/dL 70-110 HH Lab Interpretation (test cod e = 22564-2) Abnormal [facility]X+NA+K+GLU+CA2+2023-05-20 22:58:52* Test Item Value Reference Range Interpretation Comme nts PH (test code = 2) 7.42 7.35-7.45 PCO2 (test code = 1636272106) 42 See_Comment [Automated messa ge] The system which generated this result transmitted reference range: 35 - 45 mmHg. The reference range was not used to interpret this result as normal/abnormal. PO2 (test code = 0107617461) 52 See_Comment L [Automated messa ge] The system which generated this result transmitted reference range: 80 - 100 mmHg. The reference range was not used to interpret this result as normal/abnormal. HCO3 (test code = 8319991831) 27 See_Comment H [Automated messa ge] The system which generated this result transmitted reference range: 22 - 26 mEq/L. The reference range was not used to interpret this result as normal/abnormal. BE (test code = 4704309353) 1.9 See_Comment [Automated messa ge] The system which generated this result transmitted reference range: -3.0 - 3.0 mEq/L. The reference range was not used to interpret this result as normal/abnormal. THB (test code = 5268840622) 8.6 g/dL 13.5-18.0 L %O2HB (test code = 3673907345) 82.5 % 94.0-99.0 L %COHB ART (test code = 1741398436) 1.5 % 0.0-1.5 %METHB ART (test code = 1489425940) 0.3 % 0.4-1.5 L VOL%O2 ART (test code = 6695306816) 10.0 % 15.0-23.0 L QUES NA (test code = 7222346078) 138 mmol/L 135-145 K+ (test code = 1803834793) 4.7 mmol/L 3.5-5.0 AC CA IONZ (test code = 6495132585) 4.50 mg/dL 4.50-5.30 GLUCOSE (test code = 3192799919) 264 mg/dL 70-110 H Lab Interpretation (test code = 89809-1) Abnormal [facility]COOX+NA+K+GLU+CA2+2023-05-20 22:58:52* Test Item Value Reference Range Interpretation Comme nts PH (test code = 2) 7.42 7.35-7.45 PCO2 (test code = 7881094875) 42 See_Comment [Automated messa ge] The system which generated this result transmitted reference range: 35 - 45 mmHg. The reference range was not used to interpret this result as normal/abnormal. PO2 (test code = 0814092840) 52 See_Comment L [Automated messa ge] The system which generated this result transmitted reference range: 80 - 100 mmHg. The reference range was not used to interpret this result as normal/abnormal. HCO3 (test code = 7551608981) 27 See_Comment H [Automated messa ge] The system which generated this result transmitted reference range: 22 - 26 mEq/L. The reference range was not used to interpret this result as normal/abnormal. BE (test code = 9656649041) 1.9 See_Comment [Automated messa ge] The system which generated this result transmitted reference range: -3.0 - 3.0 mEq/L. The reference range was not used to interpret this result as normal/abnormal. THB (test code = 8032517745) 8.6 g/dL 13.5-18.0 L %O2HB (test code = 8839457359) 82.5 % 94.0-99.0 L %COHB ART (test code = 7899802958) 1.5 % 0.0-1.5 %METHB ART (test code = 3572317839) 0.3 % 0.4-1.5 L VOL%O2 ART (test code = 2471790189) 10.0 % 15.0-23.0 L QUES NA (test code = 5313593672) 138 mmol/L 135-145 K+ (test code = 9426531606) 4.7 mmol/L 3.5-5.0 AC CA IONZ (test code = 3258808809) 4.50 mg/dL 4.50-5.30 GLUCOSE (test code = 5112890798) 264 mg/dL 70-110 H Lab Interpretation (test code = 99570-5) Abnormal [facility]cos[facility] (A1C)2023-05-20 22:58:11* Test Item Value Reference Range Interpretation Comme nts HGB A1C (test code = 4548-4) 8.2 % 4.0-5.7 H SERGEI (test code = SERGEI) Reference RangesNormal: <5.7%Prediabetes: 5.7 - 6.4%Diabetes: > 6.5% Lab Interpretation (test code = 74788-7) Abnormal [facility] (A1C)2023-05-20 22:58:11* Test Item Value Reference Range Interpretation Comme nts HGB A1C (test code = 4548-4) 8.2 % 4.0-5.7 H SERGEI (test code = SERGEI) Reference RangesNormal: <5.7%Prediabetes: 5.7 - 6.4%Diabetes: > 6.5% Lab Interpretation (test code = 66183-4) Abnormal [facility]VBG+VCOOX+NA+K+GLU+CA2+2023-05-20 22:52:34* Test Item Value Reference Range Interpretation Comme nts PH (test code = 0810278159) 7.35 7.32-7.42 PCO2 JOE (test code = 9596163280) 50 See_Comment [Automated messa ge] The system which generated this result transmitted reference range: 41 - 51 mmHg. The reference range was not used to interpret this result as normal/abnormal. PO2 JOE (test code = 9128644462) 40 See_Comment [Automated messa ge] The system which generated this result transmitted reference range: 25 - 40 mmHg. The reference range was not used to interpret this result as normal/abnormal. HCO3 JOE (test code = 2974096538) 27 See_Comment [Automated messa ge] The system which generated this result transmitted reference range: 24 - 28 mEq/L. The reference range was not used to interpret this result as normal/abnormal. AC VBE(BEAKER) (test code = 9578768551) 1.0 mEq/L THB JOE (test code = 4980885980) 7.9 g/dL 13.5-18.0 LL %O2HB JOE (test code = 8823991741) 68.2 % 52.0-63.0 H %COHB JOE (test code = 9986736868) 1.3 % 0.0-1.5 %METHB JOE (test code = 5915171650) 0.3 % 0.4-1.5 L VOL%O2 JOE (test code = 1102047017) 7.6 % 6.0-12.0 QUES NA (test code = 3286586936) 156 mmol/L 135-145 H K+ (test code = 2352080783) 3.9 mmol/L 3.5-5.0 AC CA IONZ (test code = 1574648392) 4.20 mg/dL 4.50-5.30 L GLUCOSE (test code = 5756160738) 226 mg/dL 70-110 H Lab Interpretation (test code = 37363-6) Abnormal [facility]+VCOOX+NA+K+GLU+CA2+2023-05-20 22:52:34* Test Item Value Reference Range Interpretation Comme nts PH (test code = 0580484763) 7.35 7.32-7.42 PCO2 JOE (test code = 1992053536) 50 See_Comment [Automated messa ge] The system which generated this result transmitted reference range: 41 - 51 mmHg. The reference range was not used to interpret this result as normal/abnormal. PO2 JOE (test code = 9306689126) 40 See_Comment [Automated messa ge] The system which generated this result transmitted reference range: 25 - 40 mmHg. The reference range was not used to interpret this result as normal/abnormal. HCO3 JOE (test code = 5784950990) 27 See_Comment [Automated messa ge] The system which generated this result transmitted reference range: 24 - 28 mEq/L. The reference range was not used to interpret this result as normal/abnormal. AC VBE(BEAKER) (test code = 3698104259) 1.0 mEq/L THB JOE (test code = 2105106006) 7.9 g/dL 13.5-18.0 LL %O2HB JOE (test code = 1335612675) 68.2 % 52.0-63.0 H %COHB JOE (test code = 1478220102) 1.3 % 0.0-1.5 %METHB JOE (test code = 3013160145) 0.3 % 0.4-1.5 L VOL%O2 JOE (test code = 0561920534) 7.6 % 6.0-12.0 QUES NA (test code = 5541509704) 156 mmol/L 135-145 H K+ (test code = 7676901837) 3.9 mmol/L 3.5-5.0 AC CA IONZ (test code = 5842855549) 4.20 mg/dL 4.50-5.30 L GLUCOSE (test code = 9598350060) 226 mg/dL 70-110 H Lab Interpretation (test code = 78477-9) Abnormal [facility]VCOOX+NA+K+GLU+CA2+2023-05-20 22:51:43* Test Item Value Reference Range Interpretation Comme nts PH (test code = 0200282021) 7.46 7.32-7.42 H PCO2 JOE (test code = 9447169391) 36 See_Comment L [Automated messa ge] The system which generated this result transmitted reference range: 41 - 51 mmHg. The reference range was not used to interpret this result as normal/abnormal. PO2 JOE (test code = 3314388824) 87 See_Comment HH [Automated messa ge] The system which generated this result transmitted reference range: 25 - 40 mmHg. The reference range was not used to interpret this result as normal/abnormal. HCO3 JOE (test code = 9975685350) 25 See_Comment [Automated messa ge] The system which generated this result transmitted reference range: 24 - 28 mEq/L. The reference range was not used to interpret this result as normal/abnormal. AC VBE(BEAKER) (test code = 4774090836) 1.2 mEq/L THB JOE (test code = 4608495792) 8.1 g/dL 13.5-18.0 LL %O2HB JOE (test code = 6408153902) 94.7 % 52.0-63.0 H %COHB JOE (test code = 6872018096) 0.9 % 0.0-1.5 %METHB JOE (test code = 9193085176) 0.3 % 0.4-1.5 L VOL%O2 JOE (test code = 2780426345) 10.9 % 6.0-12.0 QUES NA (test code = 4096804981) 136 mmol/L 135-145 K+ (test code = 2734840462) 4.5 mmol/L 3.5-5.0 AC CA IONZ (test code = 5302940903) 4.50 mg/dL 4.50-5.30 GLUCOSE (test code = 4253525819) 210 mg/dL 70-110 H Lab Interpretation (test code = 17272-9) Abnormal [facility]VCOOX+NA+K+GLU+CA2+2023-05-20 22:51:43* Test Item Value Reference Range Interpretation Comme nts PH (test code = 5445874007) 7.46 7.32-7.42 H PCO2 JOE (test code = 3642805438) 36 See_Comment L [Automated messa ge] The system which generated this result transmitted reference range: 41 - 51 mmHg. The reference range was not used to interpret this result as normal/abnormal. PO2 JOE (test code = 9712323881) 87 See_Comment HH [Automated messa ge] The system which generated this result transmitted reference range: 25 - 40 mmHg. The reference range was not used to interpret this result as normal/abnormal. HCO3 JOE (test code = 2149215098) 25 See_Comment [Automated messa ge] The system which generated this result transmitted reference range: 24 - 28 mEq/L. The reference range was not used to interpret this result as normal/abnormal. AC VBE(BEAKER) (test code = 4258429796) 1.2 mEq/L THB JOE (test code = 0696092442) 8.1 g/dL 13.5-18.0 LL %O2HB JOE (test code = 0269445819) 94.7 % 52.0-63.0 H %COHB JOE (test code = 7296997689) 0.9 % 0.0-1.5 %METHB JOE (test code = 2786177192) 0.3 % 0.4-1.5 L VOL%O2 JOE (test code = 8522958733) 10.9 % 6.0-12.0 QUES NA (test code = 7275162803) 136 mmol/L 135-145 K+ (test code = 4925842602) 4.5 mmol/L 3.5-5.0 AC CA IONZ (test code = 0129801297) 4.50 mg/dL 4.50-5.30 GLUCOSE (test code = 6837449050) 210 mg/dL 70-110 H Lab Interpretation (test code = 68133-4) [facility]normal [facility]CA2+2023-05-20 22:51:08* Test Item Value Reference Range Interpretation Comme nts PH (test code = 2) 7.35 7.35-7.45 PCO2 (test code = 6188001532) 22 See_Comment L [Automated messa ge] The system which generated this result transmitted reference range: 35 - 45 mmHg. The reference range was not used to interpret this result as normal/abnormal. PO2 (test code = 8516541702) 68 See_Comment L [Automated messa ge] The system which generated this result transmitted reference range: 80 - 100 mmHg. The reference range was not used to interpret this result as normal/abnormal. HCO3 (test code = 8793318495) 12 See_Comment L [Automated messa ge] The system which generated this result transmitted reference range: 22 - 26 mEq/L. The reference range was not used to interpret this result as normal/abnormal. BE (test code = 0289127166) -13.0 See_Comment L [Automated messa ge] The system which generated this result transmitted reference range: -3.0 - 3.0 mEq/L. The reference range was not used to interpret this result as normal/abnormal. THB (test code = 7583454821) 2.3 g/dL 13.5-18.0 LL %O2HB (test code = 0462401689) 89.7 % 94.0-99.0 L %COHB ART (test code = 3535559435) 0.5 % 0.0-1.5 %METHB ART (test code = 9071104155) 0.3 % 0.4-1.5 L VOL%O2 ART (test code = 7204458047) 3.1 % 15.0-23.0 L QUES NA (test code = 6955625654) 129 mmol/L 135-145 L K+ (test code = 1880357203) 4.2 mmol/L 3.5-5.0 AC CA IONZ (test code = 6723659703) 4.40 mg/dL 4.50-5.30 L GLUCOSE (test code = 9527828959) 76 mg/dL 70-110 Lab Interpretation (test code = 40105-2) Abnormal [facility]+K+GLU+CA2+2023-05-20 22:51:08* Test Item Value Reference Range Interpretation Comme nts PH (test code = 2) 7.35 7.35-7.45 PCO2 (test code = 9969755555) 22 See_Comment L [Automated messa ge] The system which generated this result transmitted reference range: 35 - 45 mmHg. The reference range was not used to interpret this result as normal/abnormal. PO2 (test code = 1297914554) 68 See_Comment L [Automated messa ge] The system which generated this result transmitted reference range: 80 - 100 mmHg. The reference range was not used to interpret this result as normal/abnormal. HCO3 (test code = 0957022330) 12 See_Comment L [Automated messa ge] The system which generated this result transmitted reference range: 22 - 26 mEq/L. The reference range was not used to interpret this result as normal/abnormal. BE (test code = 2113479947) -13.0 See_Comment L [Automated messa ge] The system which generated this result transmitted reference range: -3.0 - 3.0 mEq/L. The reference range was not used to interpret this result as normal/abnormal. THB (test code = 2729745103) 2.3 g/dL 13.5-18.0 LL %O2HB (test code = 8712838046) 89.7 % 94.0-99.0 L %COHB ART (test code = 6437986836) 0.5 % 0.0-1.5 %METHB ART (test code = 6980362352) 0.3 % 0.4-1.5 L VOL%O2 ART (test code = 4663563887) 3.1 % 15.0-23.0 L QUES NA (test code = 6930439961) 129 mmol/L 135-145 L K+ (test code = 7058551670) 4.2 mmol/L 3.5-5.0 AC CA IONZ (test code = 9365012797) 4.40 mg/dL 4.50-5.30 L GLUCOSE (test code = 7580777212) 76 mg/dL 70-110 Lab Interpretation (test code = 41946-4) [facility]normal [facility] (NON-REPORTABLE)2023-05-20 21:06:30 These images do not require a Radiology diagnostic report.[facility]2023-05-20 21:06:30These images do not require a Radiology diagnostic report.[facility] GLUCOSE (AUTOMATED)2023-05-20 14:49:22* Test Item Value Reference Range Interpretation Comme [facility] POCT GLU (test code = 3954803156) 283 mg/dL 70-110 H Lab Interpretation (test cod e = 57398-4) Abnormal [facility] GLUCOSE (AUTOMATED)2023-05-20 14:49:22* Test Item Value Reference Range Interpretation Comme [facility] POCT GLU (test code = 3245837917) 283 mg/dL 70-110 H Lab Interpretation (test cod e = 81121-6) Abnormal [facility] Metabolic Panel (NA, K, CL, CO2, GLUCOSE, BUN, CREATININE, CA)2023-05-20 13:45:36* Test Item Value Reference Range Interpretation Comme [facility] NA (test code = 5014513507) 137 mmol/L 135-145 K (test code = 5032525676) 4.4 mmol/L 3.5-5.0 CL (test code = 0475422823) 101 mmol/L 98-108 CO2 TOTAL (test code = 4680056874) 29 mmol/L 23-31 AGAP (test code = 9521452242) 7 2-16 BUN (test code = 8290415935) 35 mg/dL 7-23 H GLUCOSE (test code = 0978337326) 303 mg/dL 70-110 H CREATININE (test code = 6159274308) 1.32 mg/dL 0.60-1.25 H CALCIUM (test code = 1408136829) 9.2 mg/dL 8.6-10.6 eGFR (test code = 05384-6) 61.4 mL/min/1.73m2 CKD-EPI eGFR (2020). Assuming creatinine has been stable day-to-day for at least three months, the eGFR indicates Category G2 (60 - 89 mL/min/1.73 m2) Lab Interpretation (test code = 33064-7) Abnormal [facility] Metabolic Panel (NA, K, CL, CO2, GLUCOSE, BUN, CREATININE, CA)2023-05-20 13:45:36* Test Item Value Reference Range Interpretation Comme nts NA (test code = 2100806124) 137 mmol/L 135-145 K (test code = 1482688151) 4.4 mmol/L 3.5-5.0 CL (test code = 9266497974) 101 mmol/L 98-108 CO2 TOTAL (test code = 4031150424) 29 mmol/L 23-31 AGAP (test code = 8902917893) 7 2-16 BUN (test code = 8037408959) 35 mg/dL 7-23 H GLUCOSE (test code = 1891271855) 303 mg/dL 70-110 H CREATININE (test code = 8642582490) 1.32 mg/dL 0.60-1.25 H CALCIUM (test code = 8446626441) 9.2 mg/dL 8.6-10.6 eGFR (test code = 96311-4) 61.4 mL/min/1.73m2 CKD-EPI eGFR (2020). Assuming creatinine has been stable day-to-day for at least three months, the eGFR indicates Category G2 (60 - 89 mL/min/1.73 m2) Lab Interpretation (test code = 22998-0) [facility]normal [facility] - ONCE [id number] 13:29:00* Test Item Value Reference Range Interpretation Comme nts ABO & RH (test code = 20) O POSITIVE IAT (test code = 1185) Negative [facility] and Screen - ONCE [id number] 13:29:00* Test Item Value Reference Range Interpretation Comme nts ABO & RH (test code = 20) O POSITIVE IAT (test code = 1185) Negative [facility] GLUCOSE (AUTOMATED)2023-05-20 13:28:52* Test Item Value Reference Range Interpretation Comme nts POCT GLU (test code = 3250199550) 330 mg/dL 70-110 H Lab Interpretation (test cod e = 42040-4) Abnormal [facility] GLUCOSE (AUTOMATED)2023-05-20 13:28:52* Test Item Value Reference Range Interpretation Comme nts POCT GLU (test code = 6263689204) 330 mg/dL 70-110 H Lab Interpretation (test cod e = 56951-8) Abnormal [facility] and Screen -2023-05-20 05:26:13* Test Item Value Reference Range Interpretation Comme nts ABO & RH (test code = 20) O POSITIVE Performed at [facility] Laboratory Services - [facility] Blood [address] [address]Uiaw Free: [phone] No. [id number] IAT (test code = 1185) Negative Performed at [facility] Laboratory Services [facility] Blood [address] [address]Ffnu Free: [phone] No. [id number] [facility] and Screen -2023-05-19 23:33:00* Test Item Value Reference Range Interpretation Comme nts ABO & RH (test code = 20) O POSITIVE IAT (test code = 1185) Negative [facility] and Screen -2023-05-19 23:33:00* Test Item Value Reference Range Interpretation Comme nts ABO & RH (test code = 20) O POSITIVE IAT (test code = 1185) Negative [facility] and Screen -2023-05-19 16:41:00* Test Item Value Reference Range Interpretation Comme nts ABO & RH (test code = 20) O POSITIVE IAT (test code = 1185) Negative [facility] and Screen -2023-05-19 16:41:00* Test Item Value Reference Range Interpretation Comme nts ABO & RH (test code = 20) O POSITIVE IAT (test code = 1185) Negative [facility] and Screen -2023-05-19 16:41:00* Test Item Value Reference Range Interpretation Comme nts ABO & RH (test code = 20) O POSITIVE IAT (test code = 1185) Negative [facility] and Screen -2023-05-19 16:41:00* Test Item Value Reference Range Interpretation Comme nts ABO & RH (test code = 20) O POSITIVE IAT (test code = 1185) Negative [facility] and Screen -2023-05-19 16:41:00* Test Item Value Reference Range Interpretation Comme nts ABO & RH (test code = 20) O POSITIVE IAT (test code = 1185) Negative [facility])2022-11-13 12:26:10* Test Item Value Reference Range Interpretation Comme nts POCT GLU (test code = 4053582861) 124 mg/dL 70-110 H Lab Interpretation (test cod e = 16191-5) Abnormal [facility] GLUCOSE (AUTOMATED)2022-11-13 01:15:00* Test Item Value Reference Range Interpretation Comme nts POCT GLU (test code = 6469115004) 222 mg/dL 70-110 H Lab Interpretation (test cod e = 61313-4) Abnormal [facility] GLUCOSE (AUTOMATED)2022-11-12 22:39:05* Test Item Value Reference Range Interpretation Comme nts POCT GLU (test code = 6059237253) 169 mg/dL 70-110 H Lab Interpretation (test cod e = 28141-3) Abnormal [facility] GLUCOSE (AUTOMATED)2022-11-12 12:37:04* Test Item Value Reference Range Interpretation Comme nts POCT GLU (test code = 6934111852) 75 mg/dL 70-110 Lab Interpretation (test cod e = 75822-3) Normal [facility] (A1C)2022-11-12 12:21:15* Test Item Value Reference Range Interpretation Comme nts HGB A1C (test code = 4548-4) 7.9 % 4.0-5.7 H SERGEI (test code = SERGEI) Reference RangesNormal: <5.7%Prediabetes: 5.7 - 6.4%Diabetes: > 6.5% Lab Interpretation (test code = 59551-9) Abnormal [facility] HEMOGLOBIN A1C [id number] 14:12:00* Test Item Value Reference Range Interpretation Comme nts POCT HBA1C (test code = 4548-4) 8.3 % 4-6 A Lab Interpretation (test cod e = 90132-3) Abnormal [facility] HEMOGLOBIN A1C [id number] 14:12:00* Test Item Value Reference Range Interpretation Comme nts POCT HBA1C (test code = 4548-4) 8.3 % 4-6 A Lab Interpretation (test cod e = 58621-7) Abnormal [facility] HEMOGLOBIN A1C [id number] 16:00:00* Test Item Value Reference Range Interpretation Comme nts POCT HBA1C (test code = 4548-4) 7.4 % 4-6 A Lab Interpretation (test cod e = 78400-2) Abnormal [facility] A[facility]C [id number] 16:00:00* Test Item Value Reference Range Interpretation Comme [facility] POCT HBA1C (test code = 4548-4) 7.4 % 4-6 A Lab Interpretation (test cod e = 13377-4) Abnormal [facility] Consult Notes Date/Time Note Provider Source 2023-05-21 11:24:00 Associated Order(s): CONSULT ADULT OCCUPATIONAL THERAPY OT GENERAL EVALUATION Consult received via [employer] [facility], EMR reviewed and evaluation completed 05/21/23. Patient referred to occupational therapy for evaluation and treatment secondary to Lumbar spinal stenosis with claudication L3-4, Herniated disc L3-4, Lumbar radiculopathy s/p Lumbar laminectomy with partial facetectomy and foraminotomy with discectomy and nerve root decompression. L3-4. Patient reports history significant for COVID-19 and long COVID-19 symptoms impacting endurance. Patient agreeable to participate in occupational therapy. Discharge Recommendations: Therapy Needs and Potential:Not applicable as no further skilled acute care OT needs at this time. Challenges to Home Transition:- Requires physical assistance for IADLS - Limited caregiver availability - Increased risk of falls Equipment Recommendations:Long handled sponge PLAN OF CARE: Discharge from OT services Precautions: Weight bearing status: NA General: Fall, logroll, obesity, and spinal Bracing: N/A Current Occupational Performance and/or Treatment: AM-PAC 6 Clicks (Raw Score 0=Dependent, 24=Independent; Low function Raw Score 0= Dependent, 32=Independent): Raw Score - Daily Activity: 21 T-Scale Score - Daily Activity: 44.27 Feeding: Independent, drinks from thermos while standing at sink Grooming: Independent, to brush teeth while standing at sink LB Dressing: Supervision, doffs and dons socks with extra time and using figure 4 technique; verbal cues provided spinal precautions Toilet Transfer: Independent, with one verbal cue for safety and use of R grab bar; discussed environmental supports at home Toileting hygiene: NT but simulated nehal care with R hand; patient able to reach while adhering to spinal precautions. Functional Mobility: sit <-> stand independent, amb to/from bathroom using RW. Patient/caregiver educated on: Fall prevention, Role of OT, and Spinal precautions Patient left sitting upright in bedside chair with call shah in reach. Please, see full evaluation below for more detail. OT EVALUATION: 62 year old male Admit date: 05/20/2023 Date of onset: 05/20/23 Admit Diagnosis: Spinal stenosis of lumbar region with neurogenic claudication [M48.062] OT Diagnosis: Impaired BADL independence, Impaired IADL independence, and Limited joint ROM PMH: Past Medical History: Diagnosis Date Diabetes HTN (hypertension) PSH: Past Surgical History: Procedure Laterality Date COLONOSCOPY N/A 11/04/2019 Surgeon: Essie Guerra MD; Location: [facility] OR Location ESOPHAGOGASTRODUODENOSCOPY N/A 11/04/2019 Surgeon: Essie Guerra MD; Location: [facility] OR Location LAMINECTOMY LUMBAR (SHX) Bilateral 05/20/2023 Surgeon: Hector Michaels MD; Location: [facility] OR LOCATION LASIK (LASER IN SITU KERATOMILEUSIS) PAIN: Pain Location: lower back Pain rating before treatment: 4, After treatment: 4 Pain Management: Reports taking pain meds OCCUPATIONAL ROLES/HOME ENVIRONMENT: Home environment: Lives with spouse who works but states daughter may check on him, 17/11 supervision/assistance is not available, and Single story home. 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 Function prior to admission: Household ambulation with scooter, Community ambulation, Independent with BADLs, and Independent with IADLs Equipment prior to admission: Small based cane, scooter, built in shower bench PERFORMANCE SKILLS/FACTORS: UE Muscle Tone: bilateral WNL UE ROM: bilateral AROM WFL UE Strength: MICHELLE UE 5/5 Dexterity/Coordination: bilateral Intact Endurance - Sitting: Good Standing: Good Sitting Balance - Static: Good Dynamic: Good Standing: Balance - Static Good Dynamic: Good Dizziness: No Skin Integrity: dressings intact and hemovac Sensation: NT Oral Motor: WFL Communication: Able to verbalize needs Yes Other: N/A Vision: WFL Yes Other: N/A Hearing: good; no issues reported COGNITION: Orientation: NT Follows Commands: 1-step Yes Multi-step Yes Inconsistencies No Safety Awareness/Judgment: Good PROBLEM LIST: Decreased independence with ADL, Decreased functional ROM, and Decreased strength/endurance for functional activity REHAB POTENTIAL/PROGNOSIS: good PATIENT/FAMILY GOALS: to return to work TREATMENT/INTERVENTION PLAN: Discharge from OT PATIENT-FAMILY TEACHING Patient provided with preferred teaching of verbal information, written information, and demonstration on Fall prevention, Role of OT, and Spinal precautions. Shows readiness to learn. Verbal instruction, Written material, and Demonstration teaching provided. Individual is able to read and verbalizes understanding of teaching provided. JASPAL Coleman, MARICEL, C/NDT Total Timed Treatment Codes: 9 Min Total Treatment Time: 20 Min Patient Complexity Level Moderate - An occupational therapy evaluation of moderate complexity was completed using the above tests and measures. The following information was obtained: An occupational profile and medical and therapy history, including an expanded review of medical and/or therapy records and additional review of physical, cognitive, or psychosocial history related to current functional performance, Various standardized and non-standardized assessments were used to identify at least 3-5 performance deficits related to physical, cognitive, or psychosocial skills that result in activity limitations and/or participation restrictions, and Clinical decision making of moderate analytic complexity, which includes an analysis of the occupational profile, analysis of data from detailed assessment(s), and consideration of several treatment options. Patient may present with comorbidities that affect occupational performance. Minimal to moderate modification of tasks or assistance (e.g., physical or verbal) with assessment(s) is necessary to enable patient to complete evaluation component. [facility] 2023-05-21 09:07:00 Associated Order(s): CONSULT ADULT PHYSICAL THERAPY Patient agreeable to working with physical therapy. Patient met semi reclined in bed and in room pt verbalizing frustration of breakfast being late . Recommend nursing staff utilize cane for short distance gait and RW for ambulating outside room to safely assist patient with mobility out of the bed or chair. PHYSICAL THERAPY EVALUATION Consult received, chart reviewed and evaluation complete this date. Patient is referred to PT for evaluation and treatment. Patient is a 62 year old male who presents to hospital for Spinal stenosis of lumbar region with neurogenic claudication [M48.062] POD 1 from single level laminectomy L34 to treat lumbar spinal stenosis with claudication. Acute conditions: Spinal stenosis w/ claudication s/p L3-L4 laminectomy 05/20/23 DM2 with hyperglycemia Possible CKD-3 Chronic, stable conditions: Polysubstance abuse (alcohol, THC, cocaine) HTN HLD Obesity BMI 32 Hx alcoholic pancreatitis, ARUN BPH GERD. Discharge Recommendations: Therapy Needs and Potential: Patient would benefit from continued physical therapy services to address: decline in bed mobility decline in transfers decline in gait and/or balance decreased strength decreased endurance Patient demonstrates good potential to improve and meet therapy goals with further physical therapy services. Patient appears motivated to improve their functional mobility and return to their previous level of function. Challenges to Home Transition: increased risk of falls decreased caregiver availability decreased safety awareness environmental barriers - patient has 3 dogs Equipment recommendations: four wheeled walker with seat Rolling Walker or Rollator: I certify that Lilly Zheng is under my care and that I had a [id number] encounter with this patient on: 05/21/2023 . The primary reason for the durable medical equipment: fall prevention, energy and joint conservation, pain management and promote mobility and independence to decrease burden of care. I am ordering and certify that, based on my findings, the following is medically necessary durable medical equipment: Rollator. Patient has a mobility limitation that significantly impairs his/her ability to participate in one or more mobility-related activities of daily living (MRADL) in the home and the patient is able to safely use the walker and the functional mobility deficit can be sufficiently resolved with use of a walker. Height: Ht Readings from Last 1 Encounters: 05/20/23 5' 6" (1.676 m) Weight: Wt Readings from Last 1 Encounters: 05/20/23 201 lb 8 oz (91.4 kg) Duration of need: 99 months. Current Functional Status and/or Treatment: AM-PAC 6 Clicks (Raw Score 0=Dependent, 24=Independent; Low function Raw Score 0= Dependent, 32=Independent): Raw Score - Basic Mobility : 18 T-Scale Score - Basic Mobility : 41.05 Bed Mobility: Rolling: Minimal Assistance Bridging: Independent Scooting in supine: Independent Supine-sit: Minimal Assistance Sitting balance Good Scooting to edge of bed: Independent Pt instructed on log rolling technique to prevent muscle spasms, to protect the back and surgical area. Pt verbalized understanding Pt educated on back precautions - no lifting/bending/twisting. Pt verbalized understanding Pt denied lightheadedness or pain with changes in position compensatory strategies to complete rolling using side rails patient given verbal cues for proper body mechanics during transition supine to sit provided assistance to swing both LE in/out of bed provided assistance for elevation of the upper body to complete transition to upright position During bed mobility tasks PT noted that hemovac was not connected to patient. Nurse was informed before continuing with OOB tasks. Nurse states she will inform medical team and allowed PT to continue with assessment. Transfers: sit-stand: Supervision Sit to stand: Supervision using Rolling Walker Stand to sit: Supervision using Rolling Walker Stand pivot transfer: Supervision Static/dynamic standing balance: Good Verbal cueing provided for correct hand placement and correct use of AD PT educated pt on difference of rolling walker and rollator. PT educated pt that he would benefit from a 4WW due to pt c/o fatigue with short distance gait tasks due to hx of covid and LE pain and fatigue. Pt reports that his legs are feeling better and is more inclined to walk more but his endurance is not so great due to him not recovering well from covid. Ambulation: Assisted patient with ambulation as follows: 50 feet using no device and Supervision. Patient presenting with Step-to and Step-through gait pattern. Instructed patient in directional changes and head movements in all planes during gait trial resulting in minimal instability and no LOB. Pt demonstrates reaching for the bed and having arms going out while walking without AD due to pain on his lower back. PT encouraged pt to ambulate more to help with pain but pt initially not wanting to walk more due to pt wanting to eat but was convinced to try using a walker. PT provided pt to try and use a RW and educated on proper placement and transitions. Pt ambulated 50 ft with RW with supervision and cues on posture and pace. Educated patient on proper breathing techniques during ambulation. Educated patient on Delia exertion scale for progressive ambulation. Patient verbalized understanding of safe techniques for progressive ambulation and safe progression of activities. Therapeutic exercise: patient educated in Adaptive equipment , Compensatory techniques/adaptive strategies, Deep breathing, Edema management, Energy conservation, Fall prevention, General strengthening, Joint protection, Positioning, Relaxation/breathing techniques, and Safety awareness., instructed patient in the following: ankle pumps, toe flexion/extension, hamstring sets, heel slides, hip abduction/adduction, straight leg raises, long arc quads, seated marching, seated hamstring stretches, patient/caregiver instructed to perform HEP 2-3 times per day, 10-15 repetitions., and patient/caregiver verbalizes understanding of instructions. Functional Outcome Measures: (Values within the past 12 hours) Tinetti Gait Score- # / 12 Initiation of gait: No hesitancy Step length: On both sides, swing foot passes stance foot Foot clearance: Both feet completely clear floor Step Symmetry: Step lengths equal Step continuity: Steps appear continuous Path: Mild/moderate deviation or uses AD Trunk: No sway, but flex of knees/ back or spreads arms Walking: Heels almost touching Tinetti Gait Score: 10 Tinetti Gait Score Interpretation: >= 7 - Low risk for falls TINETTI BALANCE SCORE- # / 16 Sitting balance: Steady, safe Arises: Able, uses arms to help Attempts to Rise: Able to rise, 1 attempt Immediate standing balance (first 5 sec): Steady without walker or other support Standing Balance: Narrow stance without support Nudged 3 times *: Steady Eyes closed*: Steady Turning 360 degrees: Continuous steps and steady Sitting down: Uses arms or motion not smooth Tinetti Balance Score: 14 Tinetti Balance Interpretation: >= 9 - Low risk for falls After session, patient up in chair. Call button provided. PLAN OF CARE: While in the hospital, PT will follow patient at least 3 times per week,once or twice a day, per patient's tolerance and needs. See below for complete details. Admit Date: 05/20/2023 Hospital Diagnosis:Spinal stenosis of lumbar region with neurogenic claudication [M48.062] POD 1 from single level laminectomy L34 to treat lumbar spinal stenosis with claudication. PT Diagnosis: Weakness, Malaise/fatigue, Pain, and Abnormality of gait and balance Weight Bearing Precaution: NA General Precautions: PPE used:Gloves, General, Fall, Logroll, spinal precautions,Hemovac Bracing/Cast present or required:N/A PMH: Past Medical History: Diagnosis Date Diabetes HTN (hypertension) PSH: Past Surgical History: Procedure Laterality Date COLONOSCOPY N/A 11/04/2019 Surgeon: Essie Guerra MD; Location: [facility] OR [facility] ESOPHAGOGASTRODUODENOSCOPY N/A 11/04/2019 Surgeon: Essie Guerra MD; Location: [facility] OR Location LAMINECTOMY LUMBAR (SHX) Bilateral 05/20/2023 Surgeon: Hector Michaels MD; Location: [facility] OR LOCATION LASIK (LASER IN SITU KERATOMILEUSIS) Prior Living Situation: lives with their spouse and in a house, DME: Single Point Cane, scooter Prior level of Mobility: house hold ambulation, ambulates with Straight Cane, uses scooter for long distance gait tasks due to fatigue and SOB Suspected ischemic or hemorraghic stroke:No Subjective: pt reports that he wants to eat and has been waiting for breakfast for over an hour Patient/Family Goals: to go home Patient/Family verbalizes understanding of condition: Yes PAIN: denies pain before and after session COMMUNICATION Primary Language: Nicaraguan Able to Verbalize needs: Yes Vision:glasses Hearing:good; no issues reported ORIENTATION/COGNITION: Oriented to: person, place, date/time, and situation Awake: Yes Alert: Yes Dizzy: No Follows Commands: Yes 1-Step Yes Multi-Step Yes Inconsistent: No NEUROLOGICAL Light Touch: within functional limits bilateral LE, Heel to thomason: nt Tone: wnl BALANCE: Sitting: Static: Excellent Dynamic: Good Standing: Static: Good Dynamic: Fair+ RANGE OF MOTION: within functional limits bilateral LE, STRENGTH: 5/5 (Normal), bilateral LE ENDURANCE: Good, Room air SKIN INTEGRITY: defer to nursing, PROBLEM LIST: Decline in bed mobility, Decline in gait, Decline in transfers, Decreased strength, Decreased endurance, Decreased balance, Safety awareness deficits, and Pain ASSESSMENT: Patient is a 62 year old male seen secondary to the above listed diagnosis. Patient would benefit from continued PT to address the above listed deficits to maximize independence and safety with functional mobility. Rehabilitation Potential: good Goals: The following goals are to maximize independence and safety with functional mobility to eventually return to prior living situation and prior functional status. Upon discharge, patient and/or family will demonstrate the followin. Rolling: Independent Supine-sit: Independent Sit to supine: Independent 2. Sit to stand: Independent using no device, Rolling Walker Stand pivot transfer: Independent 3. Independent with ambulation, Feet: 300 using least assistive device. 4. Demonstrate or verbalize understanding of home exercise program in order to continue with their rehab on their own. Treatment Plan: Gait training, Therapeutic exercise, Transfer training, Balance training, Bed mobility training, Equipment needs assessment, Safety education, patient/caregiver education, Pain management, Neuromuscular Re-Education, and Functional Motor Training PATIENT EDUCATION: Patient and Significant other provided with preferred teaching of verbal information and demonstration on role of PT, plan of care, HEP. Safety awareness and fall prevention, energy conservation techniques, proper body mechanics, AD management . Shows readiness to learn. Verbal instruction and Demonstration teaching provided. Individual is able to read and verbalizes understanding of teaching provided and Indicates understanding of teaching provided. Total Time Tx Codes in Minutes: 38 min Total Treatment Time in Minutes: 48 min Dalia Acuña PT, DPT License # [id number] NUE AGENT Dalia Acuña PT [facility] 2023-05-20 14:01:59 Associated Order(s): CONSULT SURGICAL CO-MANAGEMENT (SCM) Images from the original note were not included. Surgical Co-Management Hospitalist (SCM) Consult Service Initial Postop Consultation Note Patient: Lilly Zheng Date of Consult: 05/20/2023 Referring Physician: Dr Michaels Reason for Consult: Medical co-management HPI: The patient is a 62-year-old male with history of type 2 diabetes on insulin, obesity, alcohol abuse and polysubstance abuse with THC, cocaine, GERD, BPH, hypertension, hyperlipidemia who was admitted for an elective L3-L4 decompression of the spine. The patient was seen in the PACU and tolerated the procedure well. On review of records he was admitted from November 11 - November 13 2022 with chest pain at [facility], at that time he had acute kidney injury, pancreatitis as well as testing positive for cocaine which was thought to believe causing his chest pain. His ARUN, pancreatitis and chest pain resolved with supportive care and he was discharged home. The patient states he ran out of his Trulicity and Tresiba and has not yet been able to pick them up or take them yet with his upcoming surgery. His equipment processor is Dr. Hernandez, he states he was previously on Mounjaro but his insurance stopped covering this. He currently denies any chest pain, shortness of breath, nausea, vomiting or other symptoms. Last bowel movement was yesterday. He states he was never diagnosed with sleep apnea in the past. Daughter also at bedside. States his last drink was approximately 2 weeks ago. [facility] consulted for assistance with medical management and diabetes control. Surgery, Date: 05/20/2023 Procedure(s) (LRB): LAMINECTOMY LUMBAR (Bilateral) 3 Hr 21 Min 0 Sec Surgical and Procedural Summary Past and Present Procedures (04/20/2023 to Today) Date Procedure/Visit Type Providers Status 05/20/2023 LAMINECTOMY LUMBAR Hector Michaels (Primary)[facility] HISTORIES (personally reviewed by me): Active Ambulatory Problems Diagnosis Date Noted Type 2 diabetes mellitus without complication, without long-term current use of insulin 12/08/2017 Dyslipidemia 12/08/2017 Essential hypertension 12/08/2017 Hypogonadism in male 12/08/2017 KAYLA (obstructive sleep apnea) 03/15/2018 History of bleeding ulcers 10/21/2019 Encounter for screening colonoscopy 10/21/2019 Respiratory failure 07/19/2020 Obesity (BMI 30-39.9) 07/19/2020 Uncontrolled type 2 diabetes mellitus with hyperglycemia 04/17/2021 Chest pain, unspecified type 11/11/2022 BOWDEN (dyspnea on exertion) 11/12/2022 Elevated lipase 11/12/2022 Lumbar radiculopathy 04/23/2023 Spinal stenosis of lumbar region with neurogenic claudication 04/23/2023 Lumbar disc herniation 04/23/2023 Resolved Ambulatory Problems Diagnosis Date Noted No Resolved Ambulatory Problems Past Medical History: Diagnosis Date Diabetes HTN (hypertension) Past Surgical History: Procedure Laterality Date COLONOSCOPY N/A 11/04/2019 Surgeon: Essie Guerra MD; Location: [facility] OR Location ESOPHAGOGASTRODUODENOSCOPY N/A 11/04/2019 Surgeon: Essie Guerra MD; Location: [facility] OR Location LASIK (LASER IN SITU KERATOMILEUSIS) Social History Socioeconomic History Marital status: Spouse name: Not on file Number of children: Not on file Years of education: Not on file Highest education level: Not on file Occupational History Not on file Tobacco Use Smoking status: Former Packs/day: 0.25 Years: 30.00 Additional pack years: 0.00 Total pack years: 7.50 Types: Pipe, Cigarettes Quit date: 11/26/1987 Years since quittin.5 Passive exposure: Current Smokeless tobacco: Current Tobacco comments: Smokes Cigars on occasion Substance and Sexual Activity Alcohol use: No Drug use: No Sexual activity: Not on file Other Topics Concern Not on file Social History Narrative Not on file Social Determinants of Health Financial Resource Strain: Not on file Food Insecurity: Not on file Transportation Needs: Not on file Physical Activity: Not on file Stress: Not on file Social Connections: Not on file Intimate Partner Violence: Not on file Housing Stability: Not on file Family History Problem Relation Age of Onset Diabetes Mother Stroke Father Home medications: Prior to Admission medications Medication Sig Start Date End Date Taking? Authorizing Provider hydroCHLOROthiazide 25 mg tablet 03/23/23 Yes Doctor Unassigned, Aleneva mirtazapine 15 mg tablet 03/15/23 Yes Doctor Unassigned, Aleneva pantoprazole 40 mg EC tablet 05/07/23 Yes Doctor Unassigned, Aleneva lisinopriL 40 mg tablet Take 1 tablet by mouth in the morning and 1 tablet in the evening. Yes Doctor Unassigned, Aleneva glipiZIDE XL 10 mg 24 hr tablet TAKE 1 TABLET BY MOUTH TWICE A DAY (MORNING AND EVENING) WITH MEALS 04/13/23 Yes Tra Mayes MD atorvastatin 40 mg tablet Take 1 tablet by mouth at bedtime. 12/19/22 12/19/23 Yes Kirill Kim MD metformin ER 500 mg 24 hr tablet TAKE 2 TABLETS BY MOUTH TWICE DAILY WITH MEALS 09/30/22 Yes Tra Mayes MD pioglitazone 30 mg tablet Take 1 tablet by mouth in the morning. 09/30/22 Yes Tra Mayes MD ALPRAZolam 2 mg tablet 02/27/22 Yes Doctor Unassigned, Aleneva famotidine 40 mg tablet 02/27/22 Yes Doctor Unassigned, Aleneva HYDROcodone-acetaminophen 10-325 mg tablet TAKE 1 TABLET BY MOUTH TWICE DAILY AND 1/2 TABLET IN THE AFTERNOON. 01/01/21 Yes Doctor Unassigned, Aleneva amLODIPine 10 mg tablet Take 1 tablet by mouth daily. Appointment needed for further refills. Please contact office. 07/30/20 Yes Jade To MD tamsulosin 0.4 mg 24 hr capsule Take 1 capsule by mouth at bedtime. 02/01/20 Yes Jmaal Parson MD insulin degludec (TRESIBA FLEXTOUCH U-100) 100 unit/mL (3 mL) InPn inject 20 Units under the skin every morning. 05/18/23 Tra Mayes MD Insulin [place], Disposable, (PEN NEEDLE) 31 gauge x 5/16" Ndle Use as directed once a day 05/16/23 Tra Mayes MD dulaglutide (TRULICITY) 4.5 mg/0.5 mL PnIj inject 1 Pen under the skin weekly. 05/15/23 Tra Mayes MD huobyin-wdjykrczdffnr-dfplrx ne (EXCEDRIN MIGRAINE) 250-250-65 mg per tablet Take 2 tablets by mouth as needed for Pain. Doctor Unassigned, [place] blood sugar diagnostic (BLOOD GLUCOSE TEST) strip Use daily. Dx E11.65 03/28/22 Esha Orourke FNP Blood-Glucose Meter Misc Use daily. Dx E11.65 03/28/22 Esha Orourke FNP lancets 30 gauge Misc Use daily. Dx E11.65 03/28/22 Esha Orourke FNP syringe-needle,safety,disp unt 1.5 mL 22 gauge x 1 1/2" Syrg Use as directed with testosterone injection once [id number] 11/30/18 Tra Mayes MD Current Medications: Scheduled meds:[START ON 05/21/2023] amLODIPine, 10 mg, DAILY atorvastatin, 40 mg, QHS [START ON 05/21/2023] glipiZIDE XL, 10 mg, QAM WITH BREAKFAST ibuprofen, 800 mg, Q8H lisinopriL, 40 mg, BID methocarbamoL, 500 mg, QID insulin regular human, , AC+HS tamsulosin, 0.4 mg, QHS IV meds:NaCl 0.9% (NS) PRN meds:acetaminophen, 1,000 mg, PRN dextrose 50 % in water (D50W), 25 mL, PRN FENTanyl PF, 25 mcg, Q5MIN PRN glucagon, 1 mg, PRN HYDROcodone-acetaminophen, 1 tablet, Q4HPRN HYDROmorphone (DILAUDID) injection, 0.2 mg, Q5MIN PRN magnesium hydroxide, 15 mL, QIDPRN morpHINE, 4 mg, Q2HPRN naloxone, 0.4 mg, PRN ondansetron, 4 mg, PRN ondansetron, 4 mg, Q6HPRN ALLERGIES: No Known Allergies REVIEW OF SYSTEMS All systems negative except as otherwise stated in HPI PHYSICAL EXAM BP (!) 156/67 | Pulse 75 | Temp 36.8 ?C (98.2 ?F) (Tympanic) | Resp 9 | Ht 1.676 m (5' 6") | Wt 91.4 kg (201 lb 8 oz) | SpO2 100% | BMI 32.52 kg/m? Physical Exam Vitals reviewed. Constitutional: General: Patient is not in acute distress. Appearance: Normal appearance. HENT: Right Ear: External ear normal. Left Ear: External ear normal. Nose: Nose normal. Eyes: Extraocular Movements: Extraocular movements intact. Conjunctiva/sclera: Conjunctivae normal. Cardiovascular: Rate and Rhythm: Normal rate and regular rhythm. Pulses: Normal pulses. Heart sounds: Normal heart sounds. No murmur heard. Pulmonary: Effort: Pulmonary effort is normal. No respiratory distress. Breath sounds: Normal breath sounds. No wheezing. Abdominal: General: Bowel sounds are normal. There is no distension. Palpations: Abdomen is soft. Tenderness: There is no abdominal tenderness. Musculoskeletal: General: No swelling or tenderness. Normal range of motion. Skin: General: Skin is warm. Coloration: Skin is not jaundiced. Findings: No lesion. Neurological: General: No focal deficit present. Mental Status: patient is awake, alert, movies all extremities spontaneously, answers questions appropriately LABS/IMAGING - reviewed, recent results as below: Lab Results Component Value Date/Time NA 137 05/20/2023 07:17 AM K 4.4 05/20/2023 07:17 AM CA 9.2 05/20/2023 07:17 AM CL 101 05/20/2023 07:17 AM BUN 35 (H) 05/20/2023 07:17 AM CREAT 1.32 (H) 05/20/2023 07:17 AM EGFR 61.4 05/20/2023 07:17 AM GLU 303 (H) 05/20/2023 07:17 AM TCO2 29 05/20/2023 07:17 AM WBC 13.07 (H) 05/07/2023 11:31 AM RBC 4.30 05/07/2023 11:31 AM PLT 468 (H) 05/07/2023 11:31 AM HGB 8.3 (L) 05/07/2023 11:31 AM HCT 29.5 (L) 05/07/2023 11:31 AM ALB 3.7 05/07/2023 11:31 AM TPRO 6.5 05/07/2023 11:31 AM BILIT 0.4 05/07/2023 11:31 AM BILIUNCON 0.3 07/19/2020 12:43 PM BILICONJ 0.0 07/19/2020 12:43 PM ALT 23 05/07/2023 11:31 AM ALT 29 12/04/2017 10:39 AM AST 21 05/07/2023 11:31 AM ALKPHOS 61 05/07/2023 11:31 AM PHOS 4.1 07/20/2020 04:10 AM MG 2.2 11/13/2022 04:11 AM PTINR 0.9 05/07/2023 11:31 AM PTPAT 12.3 05/07/2023 11:31 AM APTTPAT 26 05/07/2023 11:31 AM NTBNP 119 11/11/2022 09:01 PM NTBNP 92 07/20/2020 04:10 AM TROPNI 0.005 11/12/2022 05:04 AM ACCAIONZ 4.40 (L) 07/19/2020 01:55 PM Most Recent UA: Lab Results Component Value Date/Time UPROTEIN 100 mg/dL (A) 05/07/2023 11:34 AM UPH 5.0 05/07/2023 11:34 AM UGLUCOSE Normal 05/07/2023 11:34 AM UKETONES Negative 05/07/2023 11:34 AM UBILI Negative 05/07/2023 11:34 AM ULEUKEST Negative 05/07/2023 11:34 AM UNITRITE Negative 05/07/2023 11:34 AM USPGRAV 1.018 05/07/2023 11:34 AM Radiology (48 HRS): No final results containing an impression from the past 2 days were found. Lines/tubes/drains: Patient Lines/Drains/Airways Status Active LDAs Name Placement date Placement time Site Days Peripheral IV 05/20/23 0716 Right Arm 05/20/23 0716 Arm less than 1 Peripheral IV 05/20/23 0939 Left Hand 05/20/23 0939 Hand less than 1 Closed/suction drain Right Back 05/20/23 -- Back less than 1 Surgical Wound 1020 Surgical Wound Back 05/20/23 1020 Back less than 1 ASSESSMENT & PLAN: Acute conditions: Spinal stenosis w/ claudication s/p L3-L4 laminectomy 05/20/23 DM2 with hyperglycemia Possible CKD-3 Chronic, stable conditions: Polysubstance abuse (alcohol, THC, cocaine) HTN HLD Obesity BMI 32 Hx alcoholic pancreatitis, ARUN BPH GERD Pts glucose elevated as he ran out of medications recently, also stress induced by OR. Will start weight based regimen w/ lantus 25 units qhs, 7 units lispro w/ meals + sliding scale and monitor. Goal glucose <200. Will hold oral hypoglycemics and metformin for now while inpatient. Creatinine borderline elevated, will stop lisinopril, outpatient dose of 40 BID is too high, would plan on 40mg once daily. Repeat labs in am. Continue flomax, statin and amlodipine for now. Will discuss with patient need to cut down on illicit substances, UDS positive for cocaine and THC this morning preoperatively. Thank you for allowing me to participate in your patients care with you, will follow. DVT Prophylaxis: Per Primary, Code Status: full Dispo: pending Medical Barriers to discharge: none Allison Goldberg MD, Surgical Co-Management Hospitalist [employer] Faculty Member General Internal Medicine Portions of this note were created using a voice-recognition transcribing system. Typographical errors and incorrect words or phrases may have been missed during proofreading. Please interpret accordingly. [facility] [email or web address] 2022-11-12 07:50:38 Associated Order(s): CONSULT CARDIOLOGY [facility] Cardiology Consult Note Patient: Lilly Zheng Date of : 1960 Date of service: 11/12/2022 Primary Care Physician: Wilfredo Perdomo CHIEF COMPLAINT: Chief Complaint Patient presents with Shortness of Breath Body Aches Palpitations HISTORY OF PRESENT ILLNESS: Lilly Zheng is a 62 year old male presented to the ER for evaluation for chest pain. History from patient. Pertinent cardiac related history reviewed from chart Presented to the ER with chest pain. Patient with some epigastric tenderness and he is also complaining of pain in his left buttocks and lower back. The pain does radiate down his left leg. BOWDEN NYHA class II noted. No rest chest pain noted now. Elevated lipase level noted. Patient also recently started taking Monjaro again after being off of it for a couple of months because of insurance. No chest pain at rest. No PND or orthopnea. No pedal edema. No exertional palpitations or palpitations at rest. No syncopal attacks. History of diabetes, hypertension, and osteoarthritis. Last seen by [facility] cardiology in 2019. Previous Cardiac Studies: IMAGING - I personally reviewed, pertinent results as below: Relevant cardiac labs reviewed. Hemoglobin mildly reduced at 8.9, platelet count stable at 299, potassium noted to be at 4.9, creatinine mildly elevated 1.4, troponin 6x1 negative. NT BP normal at 119 EKG dated 11/12/2022 shows sinus rhythm, narrow QRS complex, no significant ST-T changes. Chest x-ray 11/11/2022 shows no evidence of any heart failure pattern noted. CT chest dated 11/11/2022 reviewed no calcification noted in the abdominal arctic vessels. Echocardiogram dated 12/10/2017 reviewed shows preserved LV systolic function, no significant valve abnormalities noted. PAST MEDICAL HISTORY Past Medical History: Diagnosis Date Diabetes HTN (hypertension) Past Surgical History: Procedure Laterality Date COLONOSCOPY N/A 11/04/2019 Surgeon: Essie Guerra MD; Location: [facility] OR [facility] ESOPHAGOGASTRODUODENOSCOPY N/A 11/04/2019 Surgeon: Essie uGerra MD; Location: [facility] OR [facility] LASIK (LASER IN SITU KERATOMILEUSIS) Family History Problem Relation Age of Onset Diabetes Mother Stroke Father SOCIAL HISTORY Social History Socioeconomic History Marital status: Tobacco Use Smoking status: Former Packs/day: 0.25 Years: 30.00 Total pack years: 7.50 Types: Pipe, Cigarettes Quit date: 11/26/1987 Years since quittin.9 Passive exposure: Current Smokeless tobacco: Current Tobacco comments: Smokes Cigars on occasion Substance and Sexual Activity Alcohol use: No Drug use: No ALLERGIES No Known Allergies MEDICATIONS Current Discharge Medication List STOP taking these medications dulaglutide (TRULICITY) 0.75 mg/0.5 mL PnIj Comments: Reason for Stopping: insulin degludec (TRESIBA FLEXTOUCH U-100) 100 unit/mL (3 mL) InPn Comments: Reason for Stopping: ciprofloxacin-dexamethasone (CIPRODEX) 0.3-0.1 % otic drops Comments: Reason for Stopping: cyclobenzaprine 10 mg tablet Comments: Reason for Stopping: glipiZIDE XL 10 mg 24 hr tablet Comments: Reason for Stopping: lisinopriL 40 mg tablet Comments: Reason for Stopping: metformin ER 500 mg 24 hr tablet Comments: Reason for Stopping: pioglitazone 30 mg tablet Comments: Reason for Stopping: blood sugar diagnostic (BLOOD GLUCOSE TEST) strip Comments: Reason for Stopping: Blood-Glucose Meter Misc Comments: Reason for Stopping: lancets 30 gauge Misc Comments: Reason for Stopping: albuterol 90 mcg/actuation inhaler Comments: Reason for Stopping: ALPRAZolam 2 mg tablet Comments: Reason for Stopping: famotidine 40 mg tablet Comments: Reason for Stopping: GABAPENTIN 100 mg capsule Comments: Reason for Stopping: Insulin [place], Disposable, (PEN NEEDLE) 31 gauge x 5/16" Ndle Comments: Reason for Stopping: albuterol 90 mcg/actuation inhaler Comments: Reason for Stopping: HYDROcodone-acetaminophen 10-325 mg tablet Comments: Reason for Stopping: omeprazole 40 mg capsule Comments: Reason for Stopping: hydroCHLOROthiazide 25 mg tablet Comments: Reason for Stopping: pantoprazole 40 mg EC tablet Comments: Reason for Stopping: amLODIPine 10 mg tablet Comments: Reason for Stopping: pantoprazole 40 mg EC tablet Comments: Reason for Stopping: methocarbamoL 500 mg tablet Comments: Reason for Stopping: tamsulosin 0.4 mg 24 hr capsule Comments: Reason for Stopping: peg-electrolyte soln 236-22.74-6.74 -5.86 gram solution Comments: Reason for Stopping: syringe-needle,safety,disp unt 1.5 mL 22 gauge x 1 1/2" Syrg Comments: Reason for Stopping: Current Facility-Administered Medications: albuterol (VENTOLIN) inhaler 2 Puff, 2 Puff, Inhalation, Q6HPRN, Omar Almeida MD amLODIPine (NORVASC) tablet 10 mg, 10 mg, Oral, DAILY, Omar Almeida MD, 10 mg at 11/12/22 08 cyclobenzaprine (FLEXERIL) tablet 10 mg, 10 mg, Oral, TIDPRN, Omar Almeida MD famotidine (PEPCID AC) tablet 40 mg, 40 mg, Oral, DAILY, Omar Almeida MD, 40 mg at 11/12/22 08 gabapentin (NEURONTIN) capsule 100 mg, 100 mg, Oral, TID, Omar Almeida MD, 100 mg at 11/12/22 08 glipiZIDE XL (GLUCOTROL XL) tablet 10 mg, 10 mg, Oral, BID MEALS, Omar Almeida MD, 10 mg at 11/12/22 08 HYDROcodone-acetaminophen (NORCO) 10-325 mg tablet 1 tablet, 1 tablet, Oral, Q6HPRN, Omar Almeida MD insulin glargine (LANTUS U-100) injection 20 Units, 20 Units, Subcutaneous, QHS, Omar Almeida MD pantoprazole (PROTONIX) EC tablet 40 mg, 40 mg, Oral, BID, Omar Almeida MD, 40 mg at 11/12/22 08 tamsulosin (FLOMAX) capsule 0.4 mg, 0.4 mg, Oral, QHS, Omar Almeida MD acetaminophen (TYLENOL) tablet 650 mg, 650 mg, Oral, Q6HPRN, Omar Almeida MD aspirin chewable tablet 81 mg, 81 mg, Oral, DAILY, Omar Almeida MD, 81 mg at 11/12/22 08 atorvastatin (LIPITOR) tablet 40 mg, 40 mg, Oral, QPM, Omar Almeida MD docusate (COLACE) capsule 100 mg, 100 mg, Oral, DAILY, Omar Almeida MD, 100 mg at 11/12/22 08 enoxaparin (LOVENOX) injection 40 mg, 40 mg, Subcutaneous, DAILY, Omar Almeida MD, 40 mg at 11/12/22 08 metoprolol tartrate (LOPRESSOR) tablet 12.5 mg, 12.5 mg, Oral, BID, Omar Almeida MD, 12.5 mg at 11/12/22 0853 morpHINE (2 mg/mL) injection 2 mg, 2 mg, Slow IV Push, Q4HPRN, Omar Almeida MD ondansetron (ZOFRAN (PF)) injection 4 mg, 4 mg, Slow IV Push, Q6HPRN, Omar Almeida MD REVIEW OF SYSTEMS: Comprehensive 10-system review was conducted and were negative except for what's noted in the HPI. The following systems were reviewed: Constitutional, cardiovascular, respiratory, gastrointestinal, genitourinary, musculoskeletal, neurologic, psychiatric, endocrinological, and hematological. PHYSICAL EXAMINATION: Vitals: 11/12/22 0200 11/12/22 0300 11/12/22 0400 11/12/22 0700 BP: (!) 143/63 (!) 148/62 126/66 Pulse: 70 74 79 69 Resp: 17 13 13 13 Temp: 36.3 ?C (97.3 ?F) 36.2 ?C (97.1 ?F) TempSrc: Temporal Artery Tympanic SpO2: 98% 96% 98% 98% Weight: Height: General: no apparent distress HEENT: normocephalic atraumatic Neck: supple, no lymphadenopathy, no bruits, no JVD Lungs: clear to auscultation bilaterally. No wheezes or rhonchi. No increased work of breathing. Cardio: Regular rate and rhythm, S1&S2 normal, no murmurs, rubs or gallops Abdomen: soft; non-tender; non-distended; normoactive bowel sounds. : not examined Rectal: not examined Extremities: no clubbing, cyanosis, or edema. Skin: no rashes, no visible lesions. Neuro: no gross focal deficits LABS - Reviewed pertinent labs as below: CBC BMP PT/INR WBC (10*3/?L) Date Value 11/11/2022 12.13 (H) NA (mmol/L) Date Value 11/11/2022 136 No results found for: "PT" PLT (10*3/?L) Date Value 11/11/2022 299 K (mmol/L) Date Value 11/11/2022 4.9 INR (no units) Date Value 11/11/2022 1.1 HGB (g/dL) Date Value 11/11/2022 8.9 (L) BUN (mg/dL) Date Value 11/11/2022 34 (H) HCT (%) Date Value 11/11/2022 30.9 (L) CREATININE (mg/dL) Date Value 11/11/2022 1.47 (H) LIPID PROFILE GLUCOSE (mg/dL) Date Value 11/11/2022 100 CHOL (mg/dL) Date Value 09/30/2022 245 (H) CHOLESTEROL, TOTAL-Q (mg/dL) Date Value 12/08/2017 208 (H) TSH LDL CHOL (mg/dL) Date Value 09/30/2022 150 OFU-AYVQDASDNLA-K (mg/dL (calc)) Date Value 12/08/2017 135 (H) TSH (mIU/L) Date Value 09/30/2022 3.01 TSH, 3RD GENERATION-Q (mIU/L) Date Value 12/08/2017 1.74 CARDIAC ENZYMES HDL CHOLESTEROL-Q (mg/dL) Date Value 12/08/2017 39 (L) HDL (mg/dL) Date Value 09/30/2022 62 CK (U/L) Date Value 07/19/2020 92 TRIG (mg/dL) Date Value 09/30/2022 164 TRIGLYCERIDES-Q (mg/dL) Date Value 12/08/2017 202 (H) LFTs No results found for: "CKMB" AST(SGOT) (U/L) Date Value 11/11/2022 27 TROPONIN I (ng/mL) Date Value 11/12/2022 0.005 ALT(SGPT) (U/L) Date Value 12/04/2017 29 ALTv (U/L) Date Value 11/11/2022 22 No results found for: "BNP" LDL CHOL (mg/dL) Date Value 09/30/2022 150 BVY-VPHFHEPOCVI-S (mg/dL (calc)) Date Value 12/08/2017 135 (H) Recent Labs 11/12/22 0504 TROPNI 0.005 Recent Labs 09/30/22 1044 TRIG 164 LDL CHOL (mg/dL) Date Value 09/30/2022 150 ZVO-TRYQXOKPWXH-P (mg/dL (calc)) Date Value 12/08/2017 135 (H) NT-proBNP (pg/mL) Date Value 11/11/2022 119 07/20/2020 92 ASSESSMENT/PLAN Principal Problem: Chest pain, unspecified type Active Problems: Type 2 diabetes mellitus without complication, without long-term current use of insulin Dyslipidemia Essential hypertension KAYLA (obstructive sleep apnea) Obesity (BMI 30-39.9) BOWDEN (dyspnea on exertion) Elevated lipase Atypical chest pain by history: ECG reviewed which shows no dynamic changes noted. Recommend Serial trop X 2, Echo to assess to EF and wall motion changes. Telemetry reviewed. No significant arrhythmias noted. Continue telemetry monitoring Relevant cardiac labs reviewed. Hemoglobin mildly reduced at 8.9, platelet count stable at 299, potassium noted to be at 4.9, creatinine mildly elevated 1.4, troponin 6x1 negative. NT BP normal at 119 EKG dated 11/12/2022 shows sinus rhythm, narrow QRS complex, no significant ST-T changes. Chest x-ray 11/11/2022 shows no evidence of any heart failure pattern noted. CT chest dated 11/11/2022 reviewed no calcification noted in the abdominal arctic vessels. Echocardiogram dated 12/10/2017 reviewed shows preserved LV systolic function, no significant valve abnormalities noted. Recent Labs 11/11/22 2101 11/12/22 0504 TROPNI 0.002 0.005 NT-proBNP (pg/mL) Date Value 11/11/2022 119 07/20/2020 92 Hypertension: Initially elevated. Currently improving. Continue with the current dose of amlodipine 10 mg daily. Discontinued on Lopressor 12.5 twice daily due to history of cocaine use noted. Dyslipidemia: LDL not optimally controlled. Recommended goal LDL less than 70 or at least less than 100. Recommend Lipitor 40 mg daily. LDL CHOL (mg/dL) Date Value 09/30/2022 150 BFQ-SCBFSYBNXSQ-M (mg/dL (calc)) Date Value 12/08/2017 135 (H) Last Two A1C Results (UTMB/LC, POCT, QUEST) Recent Labs 03/28/22 0956 09/30/22 0912 11/12/22 0437 HGBA1C -- -- 7.9* [id number] 7.4* 8.3* -- History of KAYLA KAYLA--Moderate KAYLA. Not compliant with CPAP. Anemia: Rx/work-up as per primary team. ARUN: Rx/work-up as per primary team. Elevated lipase: Rx/work-up as per primary team. My diagnostic impression and treatment plans were discussed with the patient. Thank you for allowing us to participate in the care of Lilly Zheng. If you have any questions or concerns please feel free to call our office at [phone]. I would be happy to be of further assistance for Lilly Zheng wellbeing. Voice recognition software has been used to create portions of this document. An attempt to proofread has been made to minimize errors. Please do not hesitate to call with any questions. Ajay Jaffe MD Business Analytics Faculty Member, Division of Cardiology [facility] - Health History and Physical Notes Date/Time Note Provider Source 2024-03-10 12:25:21 UROLOGY HISTORY AND PHYSICAL NOTE Date of Service: 03/10/2024 Chief Complaint: LUTS History of Present Illness: Lilly Zheng is a 63 year old male with PMH as below , who presents with Hx of worsening LUTS last 4 years and getting worse despite flomax , CT prostate vol : 45 cc . No significant changes to H&P since last encounter Home Medications: Medications Prior to Admission Medication Sig Dispense Refill Last Dose sucralfate 1 gram tablet Take 1 tablet by mouth before meals and at bedtime. Taking pantoprazole 40 mg EC tablet Take 1 tablet by mouth in the morning. Taking meclizine 25 mg tablet Take 1 tablet by mouth every 6 (six) hours. 20 tablet 0 Taking famotidine 20 mg tablet Take 1 tablet by mouth at bedtime. Taking hydrOXYzine 25 mg tablet Take 1 tablet by mouth every 8 (eight) hours as needed. Taking metoclopramide HCl 10 mg tablet Take 1 tablet by mouth every 6 (six) hours as needed. Taking insulin degludec (TRESIBA FLEXTOUCH U-100) 100 unit/mL (3 mL) InPn inject 28 Units under the skin at bedtime. Pleas take half dose if blood glucose 80 - 120 mg/dL, hold if less than 80. (Patient taking differently: inject under the skin every morning. Dose pending BS) 27 mL 1 Taking metformin ER 500 mg 24 hr tablet Take 2 tablets by mouth in the morning and 2 tablets in the evening. Take with meals. 180 tablet 6 Taking methocarbamoL 500 mg tablet Take 1 tablet by mouth every 6 (six) hours as needed for Pain (scale 7-10). 20 tablet 0 Taking tirzepatide (MOUNJARO) 2.5 mg/0.5 mL subcutaneous injection inject 2.5 mg under the skin weekly. (Patient taking differently: inject 2.5 mg under the skin weekly. Mondays) 4 mL 4 Taking blood sugar diagnostic (Savedaily VERIO TEST STRIPS) strip Use as directed to check blood sugar 3 times daily for Type 2 diabetes mellitus 200 Strip 2 Taking Blood-Glucose Meter (Savedaily VERIO FLEX METER) Misc Use as directed 1 Each 0 Taking lancets (Savedaily DELICA PLUS LANCET) 33 gauge Misc Use as directed to check blood sugar 3 times a day for diagnosis of Type 2 DM, e11.65 100 Each 2 Taking hydroCHLOROthiazide 25 mg tablet Take 1 tablet by mouth every morning and evening. Taking mirtazapine 15 mg tablet Take 1 tablet by mouth at bedtime. Taking Insulin [place], Disposable, (PEN NEEDLE) 31 gauge x 5/16" Ndle Use as directed once a day 100 Each 3 Taking ksoxswo-cahrwzwfzqaob-jzivkwfc (EXCEDRIN MIGRAINE) 250-250-65 mg per tablet Take 2 tablets by mouth as needed for Pain. Taking lisinopriL 40 mg tablet Take 1 tablet by mouth in the morning. Taking ALPRAZolam 2 mg tablet Take 1 tablet by mouth as needed. Taking HYDROcodone-acetaminophen 10-325 mg tablet 1 tablet every 8 (eight) hours as needed. Taking amLODIPine 10 mg tablet Take 1 tablet by mouth daily. Appointment needed for further refills. Please contact office. 30 tablet 3 03/10/2024 tamsulosin 0.4 mg 24 hr capsule Take 1 capsule by mouth at bedtime. 90 capsule 4 Taking Blood-Glucose Sensor (mi[place]osa G7 SENSOR) Gogo 1 Each by subcutaneous (via wearable injector) route every 10 (ten) days. Use as directed 4 Each 4 ondansetron 4 mg disintegrating tablet Take 1 tablet by mouth every 4 (four) hours as needed for Nausea and Vomiting (N/V). 20 tablet 0 not taking sodium,potassium,mag sulfates 17.5-3.13-1.6 gram not taking pioglitazone 30 mg tablet Take 1 tablet by mouth every morning. 90 tablet 3 not taking methocarbamoL 500 mg tablet Take 1 tablet by mouth every 6 (six) hours as needed for Pain (scale 7-10) (MUSCLE SPASM). 20 tablet 0 duplicate montelukast 10 mg tablet Take 1 tablet by mouth. not taking Histories: Past Medical History: Diagnosis Date Diabetes HTN (hypertension) Past Surgical History: Procedure Laterality Date COLONOSCOPY N/A 11/04/2019 Surgeon: Essie Guerra MD; Location: [facility] OR Location ESOPHAGOGASTRODUODENOSCOPY N/A 11/04/2019 Surgeon: Essie Guerra MD; Location: [facility] OR Location LAMINECTOMY LUMBAR (SHX) Bilateral 05/20/2023 Surgeon: Hector Michaels MD; Location: [facility] OR LOCATION LASIK (LASER IN SITU KERATOMILEUSIS) Family History Problem Relation Age of Onset Diabetes Mother Stroke Father Social History Socioeconomic History Marital status: Spouse name: Not on file Number of children: Not on file Years of education: Not on file Highest education level: Not on file Occupational History Not on file Tobacco Use Smoking status: Former Current packs/day: 0.00 Average packs/day: 0.3 packs/day for 2.6 years (0.6 ttl pk-yrs) Types: Pipe, Cigarettes Start date: 1985 Quit date: 11/26/1987 Years since quittin.3 Passive exposure: Current Smokeless tobacco: Current Tobacco comments: Smokes Cigars on occasion Smokes marijuana recreationally Substance and Sexual Activity Alcohol use: No Drug use: No Sexual activity: Not on file Other Topics Concern Not on file Social History Narrative Not on file Social Determinants of Health Financial Resource Strain: Low Risk (05/21/2023) Overall Financial Resource Strain (CARDIA) Difficulty of Paying Living Expenses: Not hard at all Food Insecurity: No Food Insecurity (05/21/2023) Hunger Vital Sign Worried About Running Out of Food in the Last Year: Never true Ran Out of Food in the Last Year: Never true Transportation Needs: No Transportation Needs (05/21/2023) PRAPARE - Transportation Lack of Transportation (Medical): No Lack of Transportation (Non-Medical): No Physical Activity: Inactive (05/21/2023) Exercise Vital Sign Days of Exercise per Week: 0 days Minutes of Exercise per Session: 0 min Stress: Not on file Social Connections: Unknown (05/21/2023) Social Connection and Isolation Panel [NHANES] Frequency of Communication with Friends and Family: More than three times a week Frequency of Social Gatherings with Friends and Family: Not on file Attends Taoist Services: Not on file Active Member of Clubs or Organizations: Not on file Attends Club or Organization Meetings: Not on file Marital Status: Housing Stability: Low Risk (05/21/2023) Housing Stability Vital Sign Unable to Pay for Housing in the Last Year: No Number of Places Lived in the Last Year: 1 Unstable Housing in the Last Year: No Allergies: No Known Allergies Review of Systems: Constitutional: negative Eyes: negative Ears, nose, mouth, throat: negative Cardiovascular: negative Respiratory: negative Gastrointestinal: negative Genitourinary: (+) per HPI Musculoskeletal: negative Integumentary: negative Neurological: negative Psychiatric: negative Endocrine: negative Hematologic/Lymphatic: negative Allergic/Immunologic: negative, allergies listed above Physical Examination: Blood pressure (!) 173/67, pulse 72, temperature 36.8 ?C (98.2 ?F), temperature source Temporal Artery, resp. rate 15, SpO2 97%. Constitutional:no acute distress Eyes: normal external eye, conjunctiva and sclera normal Ears, nose, mouth, throat: normocephalic, moist mucous membranes Cardiovascular: regular rate and rhythm Respiratory: respirations unlabored on room air Musculoskeletal: no clubbing, cyanosis or edema Skin: no rashes Neurologic: no focal deficits Psychiatric: appropriate mood and affect Hematologic: no bruising Laboratory: Hemogram Recent Labs 01/03/24 0005 03/02/24 1647 WBC 12.02* 13.77* HGB 11.1* 12.4 HCT 36.2* 39.5 PLT 270 357* Chemistry Recent Labs 01/03/24 0005 02/10/24 1140 03/02/24 1647 NA 136 136 139 K 4.9 5.3* 5.2* CL 100 103 102 TCO2 23 27 25 AGAP 13 6 12 BUN 45* 36* 35* GLU 82 159* 146* CREAT 1.59* 1.09 1.28* CA 9.0 9.4 9.8 EGFR 48.8 76.7 63.3 MG -- 1.7 -- PHOS -- 3.7 -- Urinalysis Recent Labs 01/03/24 0033 02/10/24 1142 USPGRAV 1.015 1.021 UPH 5.0 5.0 UPROTEIN 30 mg/dL* 100 mg/dL* UGLUCOSE Normal Normal UKETONES Negative Negative UBILI Negative Negative UNITRITE Negative Negative ULEUKEST Negative Negative URBC 2 24* UWBC 1 3 UBACTERIA Few* Negative Urine Culture Recent Labs 02/10/24 1142 03/02/24 1557 CUR No aerobic growth (< 1000 CFU/mL) No aerobic growth (< 1000 CFU/mL) Liver Function Tests Recent Labs 02/10/24 1140 03/02/24 1647 AST 23 20 ALT 18 19 ALKPHOS 70 65 BILIT 0.5 0.2 Coagulation Profile Recent Labs 01/03/24 0005 PTPAT 10.3 PTINR 0.9 APTTPAT 34 Arterial Blood Gas There are no current results on file for these tests and/or test for the past 3 mos. Radiology: I independently visualized the images noted below. FL TIME OR (NON-REPORTABLE) Result Date: 03/01/2024 These images do not require a Radiology diagnostic report. Procedure: None Assessment and Plan: 63 year old male with Hx of worsening LUTS last 4 years and getting worse despite flomax , CT prostate vol : 45 cc . Principal Problem: Benign prostatic hyperplasia with urinary retention I counseled patient about options for treating BPH and natural history if not treated ( bladder atony, voiding dysfunction, renal failure, stones recurrent infection, and need for custodial catheter) CIC, surgical options: TURP, ThuLVP to alleviate the obstruction and attempt improve LUTS and avoid risk of complications from custodial EVERETT. Possible adverse events recognized with TURP and ThuLVP include and not limited to ( pain, bleeding, infection, injury to surrounding structures, erectile dysfunction, urinary incontinence, retrograde ejaculation, stricture formation, inability to void/retention, prostatic regrowth, need for additional procedures). Prostatic Urethral Lift ( UroLift) Robotic Laparoscopic Assisted Simple Prostatectomy for large glands ThuLVP has comparable outcomes when compared with the gold standard TURP, in addition to less risk of bleeding, catheterization time and need for hospitalization. HoLEP : most likely clear the stone in one session, risk of complications mainly damage to bladder ( perforation, , need to reconstruct). pain, bleeding, infection, injury to surrounding structures, need for prolonged catheter , failure to remove all prostate, need for additional procedures Patient may experience urgency, transient SUMI/ UUI or BEAU, if persistent may need further medical or surgical therapy ( rare) Patient confirmed consent for HoLEP Plan: OR today Jamal Parson MD NUE AGENT [facility] 2023-10-22 22:32:58 Medicine History & Physical Date of Service: 10/22/2023 Pt presents from: Home CC: Leg pain History of Present Illness: Lilly Zheng is a 63 year old male with a PMH of obesity, HTN, DM II, HLD, CKD III, PUD and lumbar radiculopathy with right sided sciatica who presented to the ED for right leg pain. He reports that he has had 2 weeks of intermittent right leg pain described as sciatica especially when he has to urinate or defecate. Today while on the toilet defecating, he developed severe sciatica pain. This pain usually improves with 500 mg of naproxen daily but was unrelieved with this today. Of note, he states that he has had SOB and BOWDEN since he got COVID 4 years ago. He also endorses chronic diffuse pruritus unimproved with topical or systemic steroids. He denies melena or hematochezia. He came to the ED for further evaluation. In the ED, he was found to have significant microcytic anemia suspicious for iron deficiency anemia. 1 unit of PRBcs was ordered and he is admitted for further observation ROS: Pt endorses SOB, BOWDEN, leg pain and diffuse pruritus. Pt denies fever / chills / nausea / vomiting / diarrhea / constipation / chest pain / cough / abdominal pain / dysuria / hematuria / melena / hematochezia / rashes / suicidal or homicidal ideation / All others negative Review of Hx/Meds: No current facility-administered medications on file prior to encounter. Current Outpatient Medications on File Prior to Encounter Medication Sig Dispense Refill methocarbamoL 500 mg tablet Take 1 tablet by mouth every 6 (six) hours as needed for Pain (scale 7-10). 20 tablet 0 methocarbamoL 500 mg tablet Take 1 tablet by mouth every 6 (six) hours as needed for Pain (scale 7-10) (MUSCLE SPASM). 20 tablet 0 tirzepatide (MOUNJARO) 2.5 mg/0.5 mL subcutaneous injection inject 2.5 mg under the skin weekly. 4 mL 4 blood sugar diagnostic (Winning PitchTOUCH VERIO TEST STRIPS) strip Use as directed to check blood sugar 3 times daily for Type 2 diabetes mellitus 200 Strip 2 Blood-Glucose Meter (ONETOUCH VERIO FLEX METER) Misc Use as directed 1 Each 0 Blood-Glucose Meter,Continuous (FREESTYLE PEPPER 3 READER) Misc Use as directed 1 Each 0 Blood-Glucose Sensor (FREESTYLE PEPPER 3 SENSOR) Gogo Use as directed every 2 weeks 6 Each 4 lancets (Tutor TroveUCH DELICA PLUS LANCET) 33 gauge Misc Use as directed to check blood sugar 3 times a day for diagnosis of Type 2 DM, e11.65 100 Each 2 PIOGLITAZONE 30 mg tablet TAKE ONE TABLET BY MOUTH EVERY MORNING 30 tablet 3 hydrOXYzine 50 mg tablet insulin degludec (TRESIBA FLEXTOUCH U-100) 100 unit/mL (3 mL) InPn inject 20-24 Units under the skin every morning. If your BG is less than 80, HOLD your insulin. If your BG is between 80-120, please take HALF of your insulin. 15 mL 1 metformin ER 500 mg 24 hr tablet Take 2 tablets in the morning and 2 tablets in the evening. Take with meals. 180 tablet 2 montelukast 10 mg tablet hydroCHLOROthiazide 25 mg tablet mirtazapine 15 mg tablet pantoprazole 40 mg EC tablet Insulin [place], Disposable, (PEN NEEDLE) 31 gauge x 5/16" Ndle Use as directed once a day 100 Each 3 tywuyde-dyvkpujvehbci-cvqvgofg (EXCEDRIN MIGRAINE) 250-250-65 mg per tablet Take 2 tablets by mouth as needed for Pain. lisinopriL 40 mg tablet Take 1 tablet by mouth in the morning and 1 tablet in the evening. atorvastatin 40 mg tablet Take 1 tablet by mouth at bedtime. 30 tablet 11 ALPRAZolam 2 mg tablet famotidine 40 mg tablet HYDROcodone-acetaminophen 10-325 mg tablet TAKE 1 TABLET BY MOUTH TWICE DAILY AND 1/2 TABLET IN THE AFTERNOON. amLODIPine 10 mg tablet Take 1 tablet by mouth daily. Appointment needed for further refills. Please contact office. 30 tablet 3 tamsulosin 0.4 mg 24 hr capsule Take 1 capsule by mouth at bedtime. 90 capsule 4 syringe-needle,safety,disp unt 1.5 mL 22 gauge x 1 1/2" Syrg Use as directed with testosterone injection once [id number] 10 Syringe 2 I have reviewed the patient's home medications PMH: Past Medical History: Diagnosis Date Diabetes HTN (hypertension) PSH: has a past surgical history that includes lasik (laser in situ keratomileusis); colonoscopy (N/A, 11/04/2019); esophagogastroduodenoscopy (N/A, 11/04/2019); and laminectomy lumbar (shx) (Bilateral, 05/20/2023). Family Hx: Mom: HTN, DM; Dad: Prostate cancer, Alzheimer's disease; Daughter: Thyroid disease, SLE, blood disorder Social History Tobacco Use Smoking status: Former Current packs/day: 0.00 Average packs/day: 0.3 packs/day for 2.6 years (0.6 ttl pk-yrs) Types: Pipe, Cigarettes Start date: 1985 Quit date: 11/26/1987 Years since quittin.9 Passive exposure: Current Smokeless tobacco: Current Tobacco comments: Smokes Cigars on occasion Smokes marijuana recreationally Substance Use Topics Alcohol use: No Drug use: No Current Scheduled Medications Current IV Current Facility-Administered Medications: acetaminophen (TYLENOL) tablet 650 mg, 650 mg, Oral, Q6HPRN, Donnell Kim MD [START ON 10/23/2023] amLODIPine (NORVASC) tablet 10 mg, 10 mg, Oral, DAILY, Donnell Kim MD atorvastatin (LIPITOR) tablet 40 mg, 40 mg, Oral, QHS, Donnell Kim MD dextrose 50 % in water (D50W) injection 25 mL, 25 mL, Slow IV Push, PRN, Donnell Kim MD glucagon (GLUCAGEN DIAGNOSTIC KIT) injection 1 mg, 1 mg, Intramuscular, PRN, Donnell Kim MD HYDROcodone-acetaminophen (NORCO 5) 5-325 mg tablet 1 tablet, 1 tablet, Oral, Q6HPRN, Donnell Kim MD [START ON 10/23/2023] insulin glargine (LANTUS U-100) injection 15 Units, 15 Units, Subcutaneous, DAILY, Donnell Kim MD lisinopriL (PRINIVIL,ZESTRIL) tablet 20 mg, 20 mg, Oral, BID, Donnell Kim MD mirtazapine (REMERON) tablet 15 mg, 15 mg, Oral, QHS, Donnell Kim MD [START ON 10/23/2023] montelukast (SINGULAIR) tablet 10 mg, 10 mg, Oral, DAILY, Donnell Kim MD morphine (2 mg/mL) injection 2 mg, 2 mg, Slow IV Push, Q4HPRN, Donnell Kim MD NaCl 0.9% (NS) IV Line Priming and Flushing Fluid Only 250 mL, 250 mL, IV Infusion, ONCE, Heather Garcia, CONCRETE CARPENTER ondansetron (ZOFRAN (PF)) injection 4 mg, 4 mg, Slow IV Push, Q6HPRN, Donnell Kim MD pantoprazole (PROTONIX) EC tablet 40 mg, 40 mg, Oral, QAM-0600, Donnell Kim MD [START ON 10/23/2023] Sliding Scale Insulin - Lispro (HumaLOG), , Subcutaneous, TID MEALS+HS, Donnell Kim MD tamsulosin (FLOMAX) capsule 0.4 mg, 0.4 mg, Oral, QHS, Donnell Kim MD Objective: Vitals: Vitals: 10/22/23 1900 10/22/23199910/22/23 2128 10/22/23 2208 BP: (!) 183/69 (!) 156/47 (!) 166/67 Pulse: 79 75 Resp: 18 13 Temp: 36.6 ?C (97.9 ?F) TempSrc: Oral SpO2: 100% 97% Weight: 92 kg (202 lb 12.8 oz) Height: I/O's: No intake or output data in the 24 hours ending 10/22/23 2233 Physical Exam: Constitutional: A&O x3, obese and in no distress. Head: Normocephalic and atraumatic. Eyes: PERRL. Conjunctivae and EOM are normal. Neck: Normal range of motion. Neck supple. No JVD present. Cardiovascular: Normal rate, regular rhythm, normal heart sounds Pulmonary/Chest: Effort normal and breath sounds normal. No respiratory distress. No wheezes, rales or rhonchi. Abdominal: Soft. Bowel sounds are normal. No TTP, non-distended and no masses. No rebound or guarding. Musculoskeletal: Normal range of motion. No edema or tenderness. Lymphadenopathy: No cervical adenopathy. Neurological: A&O x3. No focal deficits. Skin: Skin is warm and dry. No rash noted. No erythema. No pallor. Labs: BMP:BMP NA (mmol/L) Date Value 10/22/2023 138 05/22/2023 138 05/21/2023 136 05/20/2023 137 05/07/2023 139 K (mmol/L) Date Value 10/22/2023 4.9 05/22/2023 4.5 05/21/2023 4.3 05/20/2023 4.4 05/07/2023 5.4 (H) CALCIUM (mg/dL) Date Value 10/22/2023 9.2 05/22/2023 8.4 (L) 05/21/2023 8.6 05/20/2023 9.2 05/07/2023 9.2 CL (mmol/L) Date Value 10/22/2023 104 05/22/2023 105 05/21/2023 101 05/20/2023 101 05/07/2023 106 BUN (mg/dL) Date Value 10/22/2023 34 (H) 05/22/2023 42 (H) 05/21/2023 41 (H) 05/20/2023 35 (H) 05/07/2023 27 (H) CREATININE (mg/dL) Date Value 10/22/2023 1.32 (H) 05/22/2023 1.46 (H) 05/21/2023 1.58 (H) 05/20/2023 1.32 (H) 05/07/2023 1.20 GLUCOSE (mg/dL) Date Value 10/22/2023 159 (H) 05/22/2023 273 (H) 05/21/2023 272 (H) 05/20/2023 303 (H) 05/07/2023 159 (H) CO2 TOTAL (mmol/L) Date Value 10/22/2023 24 05/22/2023 25 05/21/2023 28 05/20/2023 29 05/07/2023 22 (L) CBC:CBC WBC (10*3/?L) Date Value 10/22/2023 10.50 RBC (10*6/?L) Date Value 10/22/2023 3.62 (L) PLT (10*3/?L) Date Value 10/22/2023 438 (H) HGB (g/dL) Date Value 10/22/2023 6.1 (L) HCT (%) Date Value 10/22/2023 23.6 (L) BMP:Hepatic Function Panel ALBUMIN (g/dL) Date Value 10/22/2023 4.2 T PROTEIN (g/dL) Date Value 10/22/2023 7.6 TOTAL BILI (mg/dL) Date Value 10/22/2023 0.6 BILI UNCON (mg/dL) Date Value 07/19/2020 0.3 BILI CONJ (mg/dL) Date Value 07/19/2020 0.0 ALT(SGPT) (U/L) Date Value 12/04/2017 29 ALTv (U/L) Date Value 10/22/2023 14 AST(SGOT) (U/L) Date Value 10/22/2023 19 ALK PHOS (U/L) Date Value 10/22/2023 83 Troponin: Recent Labs 10/22/23 1726 TROPNI <0.012 I have reviewed all relevant labs Imaging: CT ABDOMEN PELVIS WO CONTRAST Result Date: 10/22/2023 EXAM: CT ABDOMEN PELVIS WO CONTRAST HISTORY: 63 years-old male with right flank pain radiating to the back. A TECHNIQUE: Contiguous axial imaging from the level of the lung bases through the proximal thighs was performed without the intravenous administration of contrast. Coronal and sagittal reconstructions were obtained. COMPARISON: CT abdomen pelvis 10/05/2023. FINDINGS: Please note that the sensitivity for detection of focal lesions or vascular disease is markedly reduced without intravenous contrast. LOWER THORAX: The lung bases are clear. LIVER: The liver is normal in size and contour. No focal hepatic lesion is seen within the limitations of a non-contrasted examination. GALLBLADDER AND BILIARY TREE: The gallbladder appears unremarkable. No radiopaque gallstones are seen. No intra or extrahepatic biliary ductal dilation is visualized. SPLEEN: The spleen is normal in size. PANCREAS: No ductal dilation or masses are visualized. ADRENAL GLANDS: No adrenal masses are seen. KIDNEYS: A 2 mm stone is seen in the left renal lower pole and a punctate calcification/stone is seen in the right upper pole. No hydronephrosis or hydroureter. No contour deforming solid masses are visualized within the limitation of noncontrast CT. PELVIS/BLADDER: The bladder is partially distended and appears unremarkable. Nonspecific prostatic calcifications. GI TRACT: No dilation or bowel wall thickening is seen. The appendix appears unremarkable. PERITONEUM AND RETROPERITONEUM: No intra-abdominal free air or fluid collection is visualized. LYMPH NODES: No enlarged intra-abdominal or pelvic lymph nodes are found. VESSELS: Mild atherosclerosis of the abdominal aorta is seen. BONES AND SOFT TISSUES: No suspicious lytic or sclerotic bony lesions are present. Degenerative change in the spine. Posterior decompressive procedure in the lumbar spine at L3-L4. 1. Nonobstructive nephrolithiasis. No hydronephrosis or hydroureters. 2. No acute abnormalities in the abdomen or pelvis. . Preliminary Report Dictated by Resident: Romain Alejandro I, Toya Heck MD., have reviewed this study and agree with the above report. XR CHEST 1 VW Result Date: 10/22/2023 EXAM: XR CHEST 1 VW 10/22/2023 5:08 PM HISTORY: 63 years-old Male with bowden . TECHNIQUE: Portable AP view of the chest. COMPARISON: 11/11/2022 FINDINGS: Lines and tubes: None. Cardiomediastinal: The cardiomediastinal silhouette is unremarkable. Lungs and pleura: The lungs are clear. No focal consolidation, pneumothorax, or pleural effusion is seen. Included osseous structures show no acute abnormality. No acute cardiopulmonary abnormality. CT ABDOMEN PELVIS WO CONTRAST Result Date: 10/05/2023 ORDERING PHYSICIAN: DOUG PUENTE ABDOMEN AND PELVIS CT WITHOUT INTRAVENOUS CONTRAST. DATE: 10/05/2023 2:23 AM CLINICAL INDICATIONS: Flank pain, kidney stone suspected TECHNIQUE: Axial computed tomographic images of the abdomen and pelvis were obtained without intravenous contrast. CT scan was performed according to ALARA (As Low as Reasonably Achievable). COMPARISON: None. Abdomen findings: The lung bases are clear. The cardiac apex is unremarkable. The kidneys, ureters and urinary bladder have an unremarkable appearance. No evidence for obstructing ureteral calculus, hydroureter or hydronephrosis is present bilaterally. The liver, spleen, pancreas, gallbladder and adrenal glands have an unremarkable noncontrast appearance. The stomach, small bowel and colon demonstrate no evidence for obstruction or inflammation. A normal appendix is present right lower quadrant. No adenopathy or free fluid are identified in the abdomen. No acute osseous abnormality is demonstrated. Pelvis findings: The small bowel and colon are normal caliber. The urinary bladder demonstrates no abnormality. The prostate gland is within normal limits of size. No adenopathy or free fluid are identified in the pelvis. No acute osseous abnormality is identified. 1. No CT evidence for acute abnormality within the abdomen and pelvis is visualized. Specifically, no evidence for acute inflammatory process, ureteral calculus or hydronephrosis is present. RL: [id number] HIPS 2 VW RIGHT Result Date: 10/05/2023 Ordering physician: DOUG PUENTE INDICATION: Right hip pain COMPARISON: Bilateral hips dated 11/12/2022 FINDINGS: 2 views of the right hip. No acute fracture or dislocation is appreciated. There is mild osteoarthritis, with loss of joint space. Mild osteoarthritis of the right hip without acute fracture or dislocation appreciated. RL: [id number] AFC: [id number] HAND 3+ VW RIGHT Result Date: 10/02/2023 XR HAND 3+ VW RIGHT INDICATION: RT hand pain Lobby and can you place back in the lobby please COMPARISON: None FINDINGS: Mild diffuse soft tissue swelling. Minimal osteoarthritic changes at the first through third MCP joints. No acute fracture or dislocation. Soft tissue swelling without acute osseous abnormality. Assessment and plan: Principal Problem: Generalized abdominal pain Symptomatic iron deficiency anemia: - Likely due to chronic GI bleeding possibly related to NSAID use and history of PUD. - Transfuse 1 unit of PRBCs and follow-up repeat H&H. Transfuse for Hb <7. - Will give IV ferrlecit and start PO ferrous sulfate. - Start PO Protonix BID. - Needs outpatient GI follow-up for diagnostic EGD and colonoscopy. CKD III: - At baseline renal function. - recommended discontinuation of naproxen as well as all NSAIDs. - Avoid nephrotoxins and renally dose all medications. - Needs outpatient nephrology follow-up Diffuse pruritus: - Unclear etiology. Liver function is normal. - needs outpatient dermatology follow-up. HTN: - Continue lisinopril and Norvasc. DM II: - Start SC Lantus and SSI. HLD: - Continue Lipitor. Obesity: - Continue diet and supportive care. DVT prophylaxis: SCDs Advanced Care Planning ( Z71.89 ) Above assessment and plan discussed at length with patient, patient expressed full understanding. Questions and concerns addressed I spent 18 minutes discussing the advance care planning. Advanced Directive Maker: Self Level of comfort: N/A Code Status: Full code Former tobacco user (Z71.6) Disposition: Home [facility] 2023-05-20 08:40:28 Orthopaedic Pre-Operative Note 05/20/2023 8:40 AM I had a discussion with Lilly Zheng about their upcoming procedure/surgery. The discussed procedure was lumbar laminectomy Lumbar three-four to treat severe lumbar spinal stenosis at Lumbar three-four level. The risk, benefits, and alternatives to treatment were discussed of this options as well as non-operative treatment. The risks discussed where as follows, but not limited to: chance of heart attack, chance of stroke, chance of , infection from the procedure/surgery, complications from anesthesia, bleeding from the procedure/surgery with possible need for blood transfusions, damage to nerves/arteries/veins/tendons/bones/skin/m uscle/ligaments, paralysis, need for further surgeries, blood clots with specfic focus on blood clots of the extremties (deep vein thrombosis) and blood clots of the lungs (pulmonary embolism), incomplete or no relief of pain, worsening pain, further surgery, recurrence of the problem, spinal fluid leakage. Lilly Zheng understood the risks, all questions were answered and Lilly Zheng would like to proceed with Lumbar laminectomy at Lumbar three-four. Please see informed consent statement below. I was present during the discussion and all questions were answered with Lilly Zheng consent. H&P reviewed including review of system and there are no changes. The surgical site was marked personally by me. Physical exam before procedure/surgery is as follows: Grade 4 Left hip flexor and Left quadriceps weakness. Davy Michaels MD, SELVIN, [facility] Orthopaedic Surgery Department of Orthopaedic Surgery and Rehabilitation 05/20/2023 8:40 AM Informed consent discussed with the patient, including: condition, proposed care, treatments and services, alternative forms of treatment, and risks of no treatment. Details discussed around the procedures to be used, and the risks and hazards involved, potential benefits, and side effects of the patient s proposed care, treatment, and services; the likelihood of the patient achieving his or her goals; and any potential problems that might occur during recuperation. Reasonable alternative also discussed with the patient s proposed care, treatment, and services. The discussion encompasses risks, benefits, and side effects related to the alternative and risks related to not receiving the proposed care, treatment, and services. [facility] 2023-05-20 08:32:40 Orthopedic Surgery History and Physical Update: The patient was examined in holding. There were no updates from H&P below by Dr. James, on 04/23/23. Patient denies recent fever, chills, nausea, vomiting, shortness of breath, or chest pain. Continues to have LLE weakness particularly in the hip flexors measuring 4/5 Patient's consent was verified in the chart. Options, risks and benefits were discussed at time of clinic visit. Diagnosis: Lumbar spine stenosis Planned Procedure: L3-L4 laminectomy and decompression Min Velarde MD 05/20/2023 08:32 Attending Provider: Davy Michaels MD Resident: Kalin James MD Patient: Lilly Zheng : 1960 Primary Care Provider: Wilfredo Perdomo [facility] [id number] History: The patient is a 62 year old /White male with Chief Complaint of back pain. I personally reviewed the clinic form completed by the patient today and checked its accuracy during the visit. The form is uploaded on [employer] and is available upon request. It consists of pain diagram, comprehensive details of history of present illness and updated past medical history, surgical history, medication history, allergies, family history, social history and a complete review of systems. Patient reports the pain has been present for about 5 years with no inciting or traumatic incident. Localizes the pain to the midline lower back. Endorses pain/numbness that radiates to the L lateral/posterior thigh to the mid calf. Has been ambulating with a cane due to difficulty walking long distances. Is able to ambulate about 30 yards before having to sit down and rest. States that leaning forward on a shopping cart improves his pain. Denies any episodes of urinary or bowel incontinence. Of note, patient endorses smoking marijuana recreationally. PMH of IDDM and HTN No Known Allergies Past Medical History: Diagnosis Date Diabetes HTN (hypertension) Past Surgical History: Procedure Laterality Date COLONOSCOPY N/A 11/04/2019 Surgeon: Essie Guerra MD; Location: [facility] OR Location ESOPHAGOGASTRODUODENOSCOPY N/A 11/04/2019 Surgeon: Essie Guerra MD; Location: [facility] OR Location LASIK (LASER IN SITU KERATOMILEUSIS) Social History Tobacco Use Smoking status: Former Packs/day: 0.25 Years: 30.00 Additional pack years: 0.00 Total pack years: 7.50 Types: Pipe, Cigarettes Quit date: 11/26/1987 Years since quittin.5 Passive exposure: Current Smokeless tobacco: Current Tobacco comments: Smokes Cigars on occasion Substance Use Topics Alcohol use: No Family History Problem Relation Age of Onset Diabetes Mother Stroke Father Current Outpatient Medications Medication Instructions ALPRAZolam 2 mg tablet No dose, route, or frequency recorded. amLODIPine (NORVASC) 10 mg, Oral, DAILY, Appointment needed for further refills. Please contact office. atorvastatin (LIPITOR) 40 mg, Oral, QHS blood sugar diagnostic (BLOOD GLUCOSE TEST) strip Use daily. Dx E11.65 Blood-Glucose Meter Misc Use daily. Dx E11.65 famotidine 40 mg tablet No dose, route, or frequency recorded. glipiZIDE XL 10 mg 24 hr tablet TAKE 1 TABLET BY MOUTH TWICE A DAY (MORNING AND EVENING) WITH MEALS HYDROcodone-acetaminophen 10-325 mg tablet TAKE 1 TABLET BY MOUTH TWICE DAILY AND 1/2 TABLET IN THE AFTERNOON. insulin degludec (TRESIBA FLEXTOUCH U-100) 20 Units, Subcutaneous, QAM Insulin [place], Disposable, (PEN NEEDLE) 31 gauge x 5/16" Ndle Use as directed once a day lancets 30 gauge Misc Use daily. Dx E11.65 metformin ER 500 mg 24 hr tablet TAKE 2 TABLETS BY MOUTH TWICE DAILY WITH MEALS Mounjaro 5 mg, Subcutaneous, QWEEKLY pioglitazone (ACTOS) 30 mg, Oral, DAILY syringe-needle,safety,disp unt 1.5 mL 22 gauge x 1 1/2" Syrg Use as directed with testosterone injection once [id number] tamsulosin (FLOMAX) 0.4 mg, Oral, QHS Review of system per HPI Physical Examination: body mass index is 32.52 kg/m?. Vital signs: Vitals: 05/18/23 1204 05/20/23 0703 BP: (!) 150/72 Pulse: 81 Temp: 37.1 ?C (98.8 ?F) TempSrc: Tympanic SpO2: 99% Weight: 99.3 kg (218 lb 14.7 oz) 91.4 kg (201 lb 8 oz) Height: 1.676 m (5' 6") General Appearance: The patient is well groomed without any apparent distress. The patient has obese body habitus Orientation: The patient is oriented to time, person and place Mood and Affect: The patient has normal mood with appropriate affect. Gait, Station and Balance: With use of a cane. L antalgic gait present. Skin: No surgical scars or midline cutaneous lesions indicative of spinal pathology are observed. Inspection and Palpation: There is no gross malalignment of the spine. There is midline tenderness on palpation of lumbar spine. Range of Motion of Lumbar spine is full with pain at extremes of motion. Motor Strength for the Upper extremities is 5/5 symmetrically. Motor Strength for the Lower extremities is 5/5 symmetrically 4/5 L hip flexion Sensation in the upper and lower extremities is preserved for light touch and proprioception bilaterally. Tendon Reflexes for Quadriceps and Achilles tendons were hyporeflexic and symmetric. Lymphatics: There is no edema in the upper or lower extremities. No palpable Neurologic: CN II-XII are WNL. negative Clonus Imaging & Lab Studies: 2V Lumbar Spine XR 02/26/23 personally reviewed and interpreted by myself and attending faculty present: Multilevel DDD most present at L1-L2 MRI Lumbar Spine wo Contrast 03/03/23 personally reviewed and interpreted by myself and attending faculty present: L3-L4 disc herniation most prevalent on the L side with associated lumbar canal stenosis at this level. L4-L5 lumbar stenosis. Assessment: Lilly Zheng is a 62 year old /White male with L3-L4 lumbar stenosis with neurogenic claudication and associated L3-L4 disc herniation affecting the L nerve root. Discussed operative vs non operative management. Patient would like to pursue operative management at this time. Plan: Lilly was seen today for new patient. Diagnoses and all orders for this visit: Spinal stenosis of lumbar region with neurogenic claudication Lumbar radiculopathy Lumbar disc herniation - Discussed L3-L4 lumbar laminectomy - Patient to get pre op medical clearance from PCP - Activity modification - F/u for surgery once cleared (05/20) All of the patient's questions and concerns were answered. The patient verbalized full understanding of the current condition, was satisfied and agreed to proceed with this plan. Kalin James MD 04/23/2023 11:56 AM Orthopedic Surgery I personally examined the patient and agree with Dr. James 's note as written. I actively participated in the decision-making process. Please see Dr. James 's note for additional details. The patient has severe stenosis at L34 that is multifactorial due to degenerative facets and herniated disc. He has significant neurogenic claudication with mild quad weakness especially on the Left. Symptoms have been progressively worsening over last few years. Further conservative care unlikely to improve symptoms and recommend Lumbar laminectomy with decompression at L34. He will need pre op medical clearance due to his diabetes. I have explained risk and benefits and he desires to proceed. He has been tentatively scheduled for 05/20/23. He will follow-up prior to surgery for preop visit. Davy Michaels MD, SELVIN, [employer] Faculty Member Orthopaedic Surgery Department of Orthopaedic Surgery and Rehabilitation 04/23/2023 2:08 PM [facility] [employer] 2022-11-11 23:52:34 Formatting of this n ote is different from the original. [facility] Hospitalist Admission H&P Date of Service: 11/11/2022 CHIEF COMPLAINT: Patient with chest pain/weakness/epigastric tenderness HISTORY OF PRESENT ILLNESS Lilly Zheng is a 62 year old male with a history of diabetes, hypertension, and osteoarthritis who presents with chest pain. Patient with some epigastric tenderness and he is also complaining of pain in his left buttocks and lower back. The pain does radiate down his left leg. Patient had driven to [place] from his home in [place], [place]. He states he was with a friend and only had 1 drink. He initially did not admit to cocaine use in front of his family but when we were alone I asked him again he did admit to cocaine abuse. I believe he had more than 1 drink of alcohol and he is just not being completely honest with what happened today. This resulted in patient having acute pancreatitis. Patient also recently started taking Monjaro again after being off of it for a couple of months because of insurance. At this time, patient will be admitted to the hospital and he will be started on aggressive IV hydration. We will continue with pain control. Patient will be kept NPO. Patient will be admitted for inpatient hospitalization. PAST MEDICAL HISTORY Past Medical History: Diagnosis Date Diabetes HTN (hypertension) Osteoarthritis Chronic kidney disease BPH PAST SURGICAL HISTORY Past Surgical History: Procedure Laterality Date COLONOSCOPY N/A 11/04/2019 Surgeon: Essie Guerra MD; Location: [facility] OR [facility] ESOPHAGOGASTRODUODENOSCOPY N/A 11/04/2019 Surgeon: Essie Guerra MD; Location: [facility] OR Location LASIK (LASER IN SITU KERATOMILEUSIS) ALLERGIES No Known Allergies MEDICATIONS Current home medication list reviewed: Patient's Medications START taking these medications No medications on file CONTINUE taking these medications which have NOT CHANGED ALBUTEROL 90 MCG/ACTUATION INHALER INHALE 1 PUFF BY MOUTH EVERY 4 TO 6 HOURS ALBUTEROL 90 MCG/ACTUATION INHALER Inhale 2 Puffs every 6 (six) hours as needed for Wheezing or Shortness of Breath. ALPRAZOLAM 2 MG TABLET AMLODIPINE 10 MG TABLET Take 1 tablet by mouth daily. Appointment needed for further refills. Please contact office. BLOOD SUGAR DIAGNOSTIC (BLOOD GLUCOSE TEST) STRIP Use daily. Dx E11.65 BLOOD-GLUCOSE METER MISC Use daily. Dx E11.65 CIPROFLOXACIN-DEXAMETHASONE (CIPRODEX) 0.3-0.1 % OTIC DROPS Place 3 Drops in left ear in the morning and 3 Drops in the evening. CYCLOBENZAPRINE 10 MG TABLET Take 1 tablet by mouth 3 (three) times daily as needed for Muscle Spasms. DULAGLUTIDE (TRULICITY) 0.75 MG/0.5 ML PNIJ inject 1 Pen under the skin weekly. FAMOTIDINE 40 MG TABLET GABAPENTIN 100 MG CAPSULE TAKE ONE CAPSULE BY MOUTH THREE TIMES A DAY (MORNING, NOON AND EVENING) GLIPIZIDE XL 10 MG 24 HR TABLET Take 1 tablet by mouth in the morning and 1 tablet in the evening. Take with meals. HYDROCHLOROTHIAZIDE 25 MG TABLET Take 1 tablet by mouth daily. HYDROCODONE-ACETAMINOPHEN 10-325 MG TABLET TAKE 1 TABLET BY MOUTH TWICE DAILY AND 1/2 TABLET IN THE AFTERNOON. INSULIN DEGLUDEC (TRESIBA FLEXTOUCH U-100) 100 UNIT/ML (3 ML) INPN inject 20 Units under the skin every morning. INSULIN NEEDLES, DISPOSABLE, (PEN NEEDLE) 31 GAUGE X 5/16" NDLE Use as directed once a day LANCETS 30 GAUGE MISC Use daily. Dx E11.65 LISINOPRIL 40 MG TABLET Take 1 tablet by mouth in the morning. METFORMIN ER 500 MG 24 HR TABLET TAKE 2 TABLETS BY MOUTH TWICE DAILY WITH MEALS METHOCARBAMOL 500 MG TABLET Take 1 tablet by mouth 4 (four) times daily. OMEPRAZOLE 40 MG CAPSULE Take 40 mg by mouth 2 (two) times daily. PANTOPRAZOLE 40 MG EC TABLET Take 1 tablet by mouth 2 (two) times daily. PANTOPRAZOLE 40 MG EC TABLET Take 1 tablet by mouth 2 (two) times daily. PEG-ELECTROLYTE SOLN [id number] -5.86 GRAM SOLUTION Take as Directed PIOGLITAZONE 30 MG TABLET Take 1 tablet by mouth in the morning. SYRINGE-NEEDLE,SAFETY,DISP UNT 1.5 ML 22 GAUGE X 1 1/2" SYRG Use as directed with testosterone injection once [id number] TAMSULOSIN 0.4 MG 24 HR CAPSULE Take 1 capsule by mouth at bedtime. START taking Modified Medications as Prescribed No medications on file STOP taking these medications No medications on file FAMILY HISTORY Family History Problem Relation Age of Onset Diabetes Mother Stroke Father SOCIAL HISTORY Social History Socioeconomic History Marital status: Tobacco Use Smoking status: Former Packs/day: 0.25 Years: 30.00 Total pack years: 7.50 Types: Cigarettes Quit date: 11/26/1987 Years since quittin.9 Smokeless tobacco: Never Tobacco comments: Smokes Cigars on occasion Substance and Sexual Activity Alcohol use: No Drug use: No REVIEW OF SYSTEMS 10 systems negative except per HPI PHYSICAL EXAMINATION BP 119/66 | Pulse 81 | Temp 37 ?C (98.6 ?F) (Oral) | Resp 22 | Ht 1.676 m (5' 6") | Wt 97.5 kg (215 lb) | SpO2 95% | BMI 34.70 kg/m? General: Awake, alert, oriented to person place and time; no acute distress HEENT: Normal oral mucosa, anicteric sclerae, NCAT; no bruit, no JVP Cardiovascular: RRR Lungs: Symmetric expansion, CTAB Abdomen: Soft, epigastric tenderness; ND Musculoskeletal: No synovitis, normal muscle mass; left hip osteoarthritis Genitourinary: Normal Skin: No rash, lesions Neuro: AAOx3, no focal deficits Psych: Normal affect LABS - reviewed pertinent labs as below: CBC BMP PT/INR WBC (10*3/?L) Date Value 11/11/2022 12.13 (H) NA (mmol/L) Date Value 11/11/2022 136 No results found for: "PT" RBC (10*6/?L) Date Value 11/11/2022 4.37 K (mmol/L) Date Value 11/11/2022 4.9 INR (no units) Date Value 11/11/2022 1.1 PLT (10*3/?L) Date Value 11/11/2022 299 CALCIUM (mg/dL) Date Value 11/11/2022 8.8 HGB (g/dL) Date Value 11/11/2022 8.9 (L) CL (mmol/L) Date Value 11/11/2022 103 aPTT HCT (%) Date Value 11/11/2022 30.9 (L) BUN (mg/dL) Date Value 11/11/2022 34 (H) APTT Patient (Seconds) Date Value 11/11/2022 27 CREATININE (mg/dL) Date Value 11/11/2022 1.47 (H) IMAGING - reviewed, pertinent results as below: Hospital Encounter on 11/11/22 CT ABDOMEN PELVIS W CONTRAST Narrative CT ABDOMEN PELVIS W CONTRAST HISTORY: 62 years-old; Male; Pancreatitis, elevated lipase. COMPARISON: CT abdomen pelvis without contrast dated 02/08/2020, CT abdomen pelvis with contrast dated 11/23/2019. TECHNIQUE AND FINDINGS: Contiguous axial imaging from the level of the lung bases through the pubic symphysis was performed after the uncomplicated administration of intravenous Omnipaque contrast. Coronal and sagittal reconstructions were obtained. Auto mA and/or iterative reconstruction were used to reduce radiation dose. FINDINGS: LOWER THORAX: 6 mm right lower lobe pulmonary nodule (2:11). No cardiomegaly. LIVER: No focal hepatic lesions. Normal contour. GALLBLADDER AND BILIARY TREE: No intra or extrahepatic biliary ductal dilation. SPLEEN: Unremarkable. PANCREAS: No ductal dilatation or masses ADRENAL GLANDS: No adrenal lesions. KIDNEYS: No hydronephrosis, stones, or masses. Homogeneous and symmetrical enhancement. GI TRACT: No dilation or bowel wall thickening. The appendix is normal.. PERITONEUM AND RETROPERITONEUM: No free air or fluid collection. LYMPH NODES: No intra-abdominal or pelvic lymph node enlargement. PELVIS/BLADDER: Bladder is fully distended with no wall thickening. VESSELS: Unremarkable. BONES AND SOFT TISSUES: No suspicious lytic or sclerotic bony lesions. Multilevel degenerative changes are seen in the lumbar spine. Impression Unremarkable CT appearance of the pancreas, can be seen with early acute pancreatitis. Clinical and laboratory correlation is recommended Preliminary Report Dictated by Resident: Renetta Mathews XR CHEST 1 VW Narrative PROCEDURE: XR CHEST 1 VW CLINICAL INDICATION: chest pain COMPARISON: Chest radiograph dated 03/11/2022. FINDINGS: The lungs are underinflated. No focal consolidation is identified. No pleural effusion or pneumothorax is seen. The cardiomediastinal silhouette is unchanged. No acute bony abnormality. Impression No acute intrathoracic abnormality. Preliminary Report Dictated by Resident: Renetta Mathews ASSESSMENT: 1. Acute pancreatitis secondary to alcohol abuse 2. History of type 2 diabetes 3. History of hypertension 4. Possible sciatica 5. Osteoarthritis 6. History of BPH 7. History of cocaine abuse 8. Chest pain rule out acute coronary syndrome PLAN: 1. Serial troponins and EKG 2. Cardiology consultation 3. Echocardiogram and abdominal ultrasound 4. Anti-platelet therapy, anti coagulation, beta-elisabeth, statin, and O2 as needed 5. IV morphine for pain 6. Lipid profile 7. Silver Chaser re: alcohol abuse and cocaine use. 8. Strict blood pressure and blood sugar control 9. N.p.o. 10. Aggressive IV hydration 11. Repeat lipase level 12. GI DVT prophylaxis Patient with acute pancreatitis and work currently working up the etiology. Most likely alcohol related but patient denies drinking heavily. Could be related to the [place]. We will do abdominal ultrasound to rule out gallstones. Check a lipid profile to monitor triglyceride levels as well. Also with patient's chest pain we will go ahead and rule him out for acute coronary syndrome and check his cardiac functioning and get a cardiology consultation as well. DVT prophylaxis: enoxaparin Stress ulcer prophylaxis: pantoprazole Code status: full Advanced Care Planning (Z71.89) Above assessment and plan discussed at length with patient, patient expressed full understanding. Questions and concerned addressed. Surrogate decision maker: Level of care expected after discharge: home Time spent: 2 minutes discussing the advanced care plan Smoking Cessation: (Z71.6) Tobacco user?: yes if yes: Patient understands and agrees to the patch Time spent: 2 minutes discussing smoking cessation Patient will require inpatient stay of 2 midnights or more given high risk of morbidity and mortality. [place] SLUBBER FRAME CHANGER was verified during stay Omar Almeida MD [facility] Procedure Notes Date/Time Note Provider Source 2024-03-10 15:00:08 Associated Order(s): Intubation Intubation Date/Time: 03/10/2024 2:54 PM Urgency: elective Airway not difficult General Information and Staff Patient location during procedure: OR Performed: resident/FOOD SAMPLER Performed by: Erin Quintero FOOD SAMPLER Authorized by: Bong Huerta MD Indications and Patient Condition Indications for airway management: anesthesia Spontaneous ventilation: present Sedation level: deep Preoxygenated: yes Patient position: sniffing MILS maintained throughout Mask difficulty assessment: 2 - vent by mask + OA or adjuvant +/- NMBA Final Airway Details Final airway type: endotracheal airway Successful airway: ETT Cuffed: yes Successful intubation technique: video laryngoscopy (Estes) Facilitating devices/methods: intubating stylet Endotracheal tube insertion site: oral ETT size (mm): 7.0 Cormack-Lehane Classification: grade I - full view of glottis Placement verified by: chest auscultation and capnometry Cuff volume (mL): 8 Measured from: lips ETT to lips (cm): 21 Number of attempts at approach: 1 Ventilation between attempts: none Number of other approaches attempted: 0 Additional Comments Smooth, atraumatic, dentition and lips unchanged from pre-op. NUE AGENT NACR-NURSE JAVASCRIPT FRONT END DEVELOPER,CERTIFIED REGISTERED NURSE JAVASCRIPT FRONT END DEVELOPER [facility] 2024-03-10 12:27:13 Full Operative Note Patient name: Lilly Zheng Number: [id number] Date of operation: 03/10/2024 Faculty surgeon: Jamal Parson Pre-operative diagnosis: BPH with Hx of worsening LUTS last 4 years and getting worse despite flomax , CT prostate vol : 45 cc . Post-operative diagnosis: BPH with LUTS Operation performed: Transurethral Laser Enucleation of the Prostate (CPT - 42561) Findings: Normal urethra and bladder mucosa. No lesions or masses were seen.The prostate appeared obstructive bilobar with no median lobe, very high bladder neck +++ . Clear efflux drained from both ureteral orifices and preserved by the end of the case after enculating adenoma. The bladder had increased capacity, +++ trabeculation, no tics, no stones . The patient tolerated the procedure well. There were no complications in this procedure. Enculation time :14 :30 mins Hemostasis time :5 mins Morcellation time :1:15 mins Laser time 16 mins Prostate chips : 10 g The patient was taken to the OR where a timeout was performed amongst all operative staff. GETA was administered per anesthesiology and the patient was given Ancef as a nehal-procedural antibiotic. The patient was then positioned in dorsal lithotomy position and prepped/draped in the usual sterile fashion. The meatus was initially calibrated from 18 to 30 Fr sequentially with Ransom urethral sounds. A resectoscope with a visual obturator was then advanced per urethra into the bladder and the bladder was emptied. A laser bridge was then introduced and a 550 micron Holmium laser was introduced. The prostate was noted to be large and bi- lobar in appearance. No suspicious lesions or masses were noted within the bladder. Beginning at the level of the verumontanum, the prostate was systematically enucleate using tri-lobar technique. Enucleation was initiated posteriorly near the apex and continued laterally before advancing the enucleation anteriorly. After the anterior enucleation plane was created, the bladder was entered and the bladder neck was incised bilaterally until the anterior and posterior enucleation planes were join. The remaining posterior attachments were then then incised until the prostatic adenoma had been fully enucleated. The prostatic adenoma was then advanced into the bladder lumen and a transurethral morcellator was introduced. The prostatic adenoma was fully morcellated and evacuated from the bladder. Final cystoscopy demonstrated no evidence of residual adenoma within the bladder or prostatic fossa. Hemostasis was achieved with the laser fiber. All instrumentation was then removed and a 22 Fr 3-way catheter was advanced per urethra into the bladder with 30 cc of sterile water in the catheter balloon. CBI was initiated with CYU output. This concluded the procedure, there were no complications. The patient was safely extubated and transferred to PACU in stable condition. Complications: none Estimated blood loss: 50 mL Specimens: prostate chips Patient's Condition: stable to PACU Jamal Parson MD [facility]
[2024-05-13 14:51] LABS: Absolute Basophils 0.1 K/uL (0-0.5); Absolute Eosinophils 1.1 K/uL (0-0.5); Absolute Lymphocytes (CBC) 1.8 K/uL (0.7-4.9); Absolute Monocytes 0.6 K/uL (0.1-1.3); Absolute Neutrophil 7.4 K/uL (1.8-8.0); Basophils % 0.7 % (0-1.3); Eosinophils % 10.2 % (0-4.4); Hematocrit 34.9 % (39.6-49.0); Hemoglobin 11.3 g/dL (13.6-17.9); Lymphocytes % 16.5 % (15.3-44.8); MCH 25.1 pg (27.0-35.0); MCHC 32.5 g/dL (32.0-36.0); MCV 77.3 fL (80-100); MPV 8.2 fL (7.6-11.3); Monocytes % 5.2 % (3.3-12.3); Neutrophils % 67.4 % (41.7-73.7); Platelets 303 thou/uL (152-406); RBC Red Blood Cell Count 4.52 M/uL (4.33-5.43); Red Cell Distribution Width 15.7 % (12.1-15.2)
[2024-05-13 14:56] LABS: PT Prothrombin Time 11.4 SECONDS (9.4-12.5); PTT, Activated Partial Thromb 33.1 SECONDS (24.3-36.9); Protime INR 1.09
[2024-05-13 15:06] LABS: ALT/SGPT 22 U/L (16-61); AST/SGOT 13 U/L (15-37); Albumin 2.9 g/dL (3.4-5.0); Albumin/Globulin Ratio 0.8 (1.1-1.8); Alkaline Phosphatase 57 U/L (45-117); Anion Gap 9.3 mEq/L (5.0-15.0); BUN Blood Urea Nitrogen 27 mg/dL (7-18); Bicarbonate 29 mEq/L (21-32); Bilirubin Total 0.3 mg/dL (0.2-1.0); Globulin 3.7 g/dL (2.3-3.5); Glomerular Filtration Rate 70 ml/min (=/>90); Glucose Level 226 mg/dL (74-106); Potassium 4.3 mEq/L (3.5-5.1); Protein, Total 6.6 g/dL (6.4-8.2); Sodium Level 139 mEq/L (136-145); Troponin High Sensitivity 7.3 pg/mL (<58.9)
[2024-05-13 15:07] LABS: Bilirubin Direct < 0.2 mg/dL (0-0.2); Bilirubin Indirect, Calculated 0.1 mg/dL (0.2-0.8)
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
[2024-05-13] MEDS ORDERED: ONDANSETRON 4 MG/2 ML VIAL IV PRN (17:42)
[2024-05-13] MEDS ORDERED: ACETAMINOPHEN 500 MG TAB PO PRN (17:42)
[2024-05-13] MEDS ORDERED: POLYETHYL GLY 3350 17 GM/DOSE PO PRN (17:47)
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
[2024-05-13] MEDS ORDERED: GLUCAGON 1 MG/VIAL IM PRN ×2 (17:57)
[2024-05-13] MEDS ORDERED: D10W 125 ML IV PRN ×2 (17:57)
[2024-05-13] MEDS ORDERED: HOME MED 1 EA UNK (Meclizine Hcl [Meclizine Hcl] 25 MG Tablet) PO PRN (17:58)
[2024-05-13] MEDS ORDERED: DOCUSATE NA/SENNA CONC 1 TAB PO PRN (18:01)
[2024-05-13] MEDS ORDERED: MECLIZINE HCL 12.5 MG TAB PO PRN (18:07)
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
[2024-05-13] MEDS: ENOXAPARIN 40 MG/0.4 ML SQ SCH (19:00)
[2024-05-13] MEDS ORDERED: MORPHINE 2 MG/ML SYR ONE (19:27)
[2024-05-13] MEDS ORDERED: ENOXAPARIN 40 MG/0.4 ML SQ ONE (19:28)
[2024-05-13] MEDS: MORPHINE 2 MG/ML SYR IV PRN (19:32)
[2024-05-13] MEDS: TAMSULOSIN 0.4 MG SR CAP PO SCH (21:41)
[2024-05-13] MEDS: INSULIN REGULAR (HUMAN) 100 UNIT/ML SQ SCH (21:41)
[2024-05-13] MEDS: DOCUSATE NA/SENNA CONC 1 TAB PO SCH (21:41)
[2024-05-13] MEDS: HYDROCODONE/APAP 5/325 MG TAB PO PRN (21:47)
[2024-05-14 01:33] VITALS: BMI 31.3
[2024-05-14 06:47] LABS: Absolute Basophils 0.1 K/uL (0-0.5); Absolute Eosinophils 0.8 K/uL (0-0.5); Absolute Lymphocytes (CBC) 1.9 K/uL (0.7-4.9); Absolute Monocytes 0.7 K/uL (0.1-1.3); Absolute Neutrophil 5.6 K/uL (1.8-8.0); Basophils % 0.8 % (0-1.3); Eosinophils % 9.3 % (0-4.4); Hematocrit 34.3 % (39.6-49.0); Hemoglobin 11.2 g/dL (13.6-17.9); Lymphocytes % 20.7 % (15.3-44.8); MCH 25.5 pg (27.0-35.0); MCHC 32.7 g/dL (32.0-36.0); MPV 7.9 fL (7.6-11.3); Monocytes % 7.3 % (3.3-12.3); Neutrophils % 61.9 % (41.7-73.7); Nucleated Red Blood Cells % 0.1 % (0-0); Platelets 300 thou/uL (152-406); Red Cell Distribution Width 15.2 % (12.1-15.2)
[2024-05-14 06:55] LABS: Anion Gap 10.2 mEq/L (5.0-15.0); Potassium 4.2 mEq/L (3.5-5.1)
[2024-05-14] MEDS ORDERED: methocarbamoL 500 MG TAB PO PRN (08:00)
[2024-05-14] MEDS: MONTELUKAST 10 MG TAB PO SCH (08:05)
[2024-05-14] MEDS: AMLODIPINE 10 MG TAB PO SCH (08:52)
[2024-05-14] MEDS: hydroCHLOROthiazide 25 MG TAB PO SCH (08:52)
[2024-05-14] MEDS: HOME MED 1 EA UNK (Lisinopril [Lisinopril] 40 MG Tablet) PO SCH (08:53)
[2024-05-14 10:20] VITALS: O2SAT 95
[2024-05-14 11:41] VITALS: BP 157/71; TEMP 98.5
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
== END 2024-05-14 13:07 | disposition home or self-care (01) ==
LOC: ER 14:24 → ERHOLD 17:40 → 4TH 19:11
PROVIDERS: ADMIT Internal Medicine; ATTEND Internal Medicine
DX: R55 Syncope and collapse (principal); F13.20 Sedative, hypnotic or anxiolytic dependence, uncomplicated; F12.90 Cannabis use, unspecified, uncomplicated; I10 Essential (primary) hypertension; G89.29 Other chronic pain; G62.9 Polyneuropathy, unspecified; E11.9 Type 2 diabetes mellitus without complications; M25.511 Pain in right shoulder; S29.9XXA Unspecified injury of thorax, initial encounter; V43.52XA Car driver injured in collision with other type car in traffic accident, initial encounter; Y93.89 Activity, other specified; Y92.410 Unspecified street and highway as the place of occurrence of the external cause
CPT/HCPCS: 36415; 70450; 71045; 71250; 74176; 80048; 80076; 82947; 83735; 84484; 85025; 85610; 85730; 97116; 99285; G0378; J1650; J2270

== ENCOUNTER 2024-12-01 14:41 | Emergency (ER) | payer MEDICARE ==
--- OUTSIDE RECORDS SUMMARY | 2024-12-01 15:05 | XMS REPORT | Continuity of Care Document ---
Author Name Unknown Address [address] [facility] [place] [address] [facility] Address [address] [facility] [address] [place] [address] Care Team Providers Care Job Placement Counselor Name Role Phone SAMSON PERDOMO Primary Care Physician Unavailab ESSIE Blanchard Attending Clinician Unavailable JADE TO Attending Clinician Unavailable TARA LAGOS Attending Clinician Unavailable LORENZO PURI Attending Clinician Unavailable CARLEY GIBBS Attending Clinician UnavailADRINAA Alan Attending Clinician Unavailable Tara Lagos MD Attending Clinician [phone] KATRIN WISE Attending Clinician Unavailab Lorenzo West Attending Clinician [phone] SHAWANDA DUMAS Attending Clinician UnavailJOHANA Galicia Attending Clinician Unavailable Samson Perdomo Attending Clinician [phone] Kevin Mayes MD Attending Clinician [phone] MONIQUE LOPEZ Attending Clinician Unavailable MONIQUE LOPEZ Attending Clinician Unavailable Jade To MD Attending Clinician [phone] CRYSTAL MARKS Attending Clinician Unavailable CRYSTAL MARKS Attending Clinician Unavailable Crystal Barbosa Attending Clinician [phone] HECTOR MICHAELS Attending Clinician Unavailable HECTOR MICHAELS Attending Clinician Unavailable Hector Michaels MD Attending Clinician Radha BOOGIE, Shawanda Dailey Attending Clinician [phone] MARC RODRIGUEZ Attending Clinician Unavailable Jennifer BOOGIE, Marc Santos Attending Clinician [phone] BETTYE PARSON Attending Clinician Unavailable ZOFIA MULLINS Attending Clinician Unavailable Nurse, Florian Endo/Diab Attending Clinician Unavail able Lab, Ang - Db Attending Clinician Unavailable Doctor Unassigned, [place] Attending Clinician U navailable Aurora Huntley Attending Clinician Unavail able DALLIN LUIS Attending Clinician UnavailDALLIN Sanchez Attending Clinician Unavailchelsea Luis MD, Dallin Dinh Attending Clinician [phone] Kevon Rossi PT, Arpita Attending Clinician Un available ERIN KIM Attending Clinician Unavailable Bettye Parson MD Attending Clinician [phone] Shawanda Burch MD Attending Clinician [phone] Pob, Adc Lab Main Attending Clinician UnavailSHAWANDA Duke Attending Clinician Unavailchelsea castellanos Nurse, [facility] Surgery Gu Attending Clinician Villa Koch MD Attending Clinicia n Adriana Prabhakar CRNA Attending Clinician [phone] 2, Adc Surg Proc Attending Clinician Unavailab Devante Salgado DO Attending Clinician [phone] DEVANTE WHEELER Attending Clinician Unavailable Kyle Nguyen MD Attending Clinician [phone] Nurse, Florian Baumann Attending Clinician Unavailable KYLE NGUYEN Attending Clinician Unavailable SOCORRO WILKINSON Attending Clinician Unavailable SOCORRO WILKINSON Attending Clinician Unavailable Socorro Wilkinson MD Attending Clinician [phone] HAILEY PAIZ Attending Clinician Unavailable Hailey Monterroso Attending Clinician Pob, Adc Lab Main Attending Clinician Shawanda Zhang MD Attending Clinician [phone] Kevin Mayes MD Attending Clinician [phone] Lara Palmer RN Attending Clinician [phone] DELONTE KIM Attending Clinician Unavailable Delonte Kim MD Attending Clinician [phone] Doctor Unassigned, [place] Attending Clinician U navailable SIENNA PUENTE Attending Clinician Unavailable Sienna Puente MD Attending Clinician [phone] Dallin Luis MD Attending Clinician [phone] Lab, Ang - Db Attending Clinician Unavailable Nwgilberto HUDSON, Lorenzo Attending Clinician [phone] George BOOGIE, Michael Rivera Attending Clinician +[phone] HASMUKH HIGGINS Attending Clinician Unavailable Hasmukh Higgins MD Attending Clinician + [phone] Ajit BOOGIE, Fritz Meléndez Attending Clinician [phone] FRITZ ESCOBAR Attending Clinician Unavaila ble Call, [facility] Phone Attending Clinician Unavail able Josef BASS, Yazmin Santos Attending Clinician Unavailab gustavo To MD, Jade Attending Clinician [phone] TAYLOR EM Attending Clinician Unavailab Taylor Tanner DNP Attending Clinician + [phone] Erin Kim MD Attending Clinician [phone] MALGORZATA NGUYEN Attending Clinician Unavailable Malgorzata De La Cruz Attending Clinician [phone] OMAR ALMEIDA Attending Clinician UnavailOmar Valencia MD Attending Clinician [phone] SANDRA EASON Attending Clinician Unavailab Sandra Will DO Attending Clinician [phone] KEVIN MAYES Attending Clinician Unavailable Esha Vieyra Attending Clinician UnavailCHESTER Long Attending Clinician Unavailable CHESTER WALTERS Attending Clinician Unavailable ESHA OROURKE Attending Clinician Unavailable Chester Walters DO Attending Clinician [phone] Bettye Prason MD Attending Clinician [phone] Mahsa Perdue MD Attending Clinician [phone] Hernán Tay Attending Clinician [phone] Melissa BASS, Nguyen Dennis Attending Clinician Unavailab HERNÁN Pedraza Attending Clinician Unavailchelsea e WONG THORNTON Attending Clinician Unavailable Wong Srinivasan S Attending Clinician [phone] GRAMMPAIGE A Attending Clinician Unavailable Gramm ERP MANAGER, Paige A Attending Clinician [phone] Bacilio BASS, Caroline Castellanos Attending Clinician [phone] Genesis Hammonds Attending Clinician [phone] Silvio Jennings MD Attending Clinician [phone] SILVIO JENNINGS Attending Clinician Unavailable Therapy, [facility] Covid Infusion Attending Clinician Unavailable Hugh Low MD Attending Clinician [phone] HUGH LOW Attending Clinician Unavailable Pcp, Patient Does Not Have A Attending Clinician Lab, [facility] Fam Pob I Attending Clinician Unavailab Chelsey Cabezas Attending Clinician [phone] CHELSEY CARD Attending Clinician Unavailable Myrna Ann Attending Clinician [phone] Leanne ErinAnnamaria Attending Clinician [phone] Essie Guerra MD Attending Clinician [phone] Only, [facility] Test Attending Clinician Unavailable Nurse, [facility] Surgery Gu Attending Clinician CHANCE Diop Attending Clinician Alessandro morales 2, [facility] Lab Attending Clinician Unavailable Unknown, Attending Attending Clinician Unavailab ESSIE Blanchard Admitting Clinician Unavailable CRYSTAL MARKS Admitting Clinician Unavailable MARC RODRIGUEZ Admitting Clinician Unavailable Marc Rodriguez MD Admitting Clinician [phone] JADE TO Admitting Clinician Unavailable BETTYE PARSON Admitting Clinician Unavailable Bettye Parson MD Admitting Clinician [phone] SOCORRO WILKINSON Admitting Clinician Unavailable HECTOR MICHAELS Admitting Clinician Unavailable DELONTE KIM Admitting Clinician Unavailable Delonte Kim MD Admitting Clinician [phone] SIENNA PUENTE Admitting Clinician Unavailable DALLIN LUIS Admitting Clinician UnavailERIN Martins Admitting Clinician Unavailable MALGORZATA NGUYEN Admitting Clinician Unavailable OMAR ALMEIDA Admitting Clinician Omar Nelson MD Admitting Clinician Silvio Jennings MD Admitting Clinician SILVIO JENNINGS Admitting Clinician Unavailable Essie Guerra MD Admitting Clinician [phone] CHANCE MORALES Admitting Clinician Alessandro morales Payers Payer Name Policy Type Policy Number Effective Date Expirati on Date Source HIM 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 [id number] 2021 00:00:00 [employer] HMO [id number] 2018 00:00:00 Problems Condition Name Condition Details Condition Category Status Onset Date Resolution Date Last Treatment Date Treating Clinician Comments Source Acute hearing loss of right ear Acute hearing loss of right ear Disease Active 10-22 00:00: 00 [facility] Nonobstruc tive atheroscle rosis of coronary artery Nonobstruc tive atheroscle rosis of coronary artery Disease Active 4-17 00:00: 00 [facility] Abnormal nuclear cardiac imaging test Abnormal nuclear cardiac imaging test Disease Active 2-05 00:00: 00 [facility] 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 Disease Active 2-05 00:00: 00 [facility] Vertigo Vertigo Disease Active 1-14 00:00: 00 [facility] Benign prostatic hyperplasi a with urinary retention Benign prostatic hyperplasi a with urinary retention Disease Active 2023-04 1-06 00:00: 00 [facility] Generalize d abdominal pain Generalize d abdominal pain Disease Active 6- 00:00: 00 [facility] Lumbar radiculopa thy Lumbar radiculopa thy Disease Active 2022-04- 00:00: 00 [facility] Spinal stenosis of lumbar region with neurogenic claudicati on Spinal stenosis of lumbar region with neurogenic claudicati on Disease Active 2022-04 00:00: 00 [facility] Lumbar disc herniation Lumbar disc herniation Disease Active 2022-04 00:00: 00 [facility] BOWDEN (dyspnea on exertion) BOWDEN (dyspnea on exertion) Disease Active 11-12 00:00: 00 [facility] Elevated lipase Elevated lipase Disease Active 11-12 00:00: 00 [facility] Chest pain, unspecifie d type Chest pain, unspecifie d type Disease Active 11-11 00:00: 00 [facility] Uncontroll ed type 2 diabetes mellitus with hyperglyce franky Uncontroll ed type 2 diabetes mellitus with hyperglyce franky Disease Active 2020-04 00:00: 00 [facility] Respirator y failure Respirator y failure Disease Active 07-19 00:00: 00 [facility] Obesity (BMI 30-39.9) Obesity (BMI 30-39.9) Disease Active 07-19 00:00: 00 [facility] History of bleeding ulcers History of bleeding ulcers Disease Active 10-20 00:00: 00 Overview: Formattin g of this note might be different from the original. Added automatic ally from request for surgery [id number] [facility] Encounter for screening colonoscop y Encounter for screening colonoscop y Disease Active 10-20 00:00: 00 Overview: Formattin g of this note might be different from the original. Added automatic ally from request for surgery [id number] [facility] KAYLA (obstructi ve sleep apnea) KAYLA (obstructi ve sleep apnea) Disease Active 2017-04 00:00: 00 [facility] Type 2 diabetes mellitus without complicati on, without long-term current use of insulin Type 2 diabetes mellitus without complicati on, without long-term current use of insulin Disease Active 12-08 00:00: 00 [facility] Dyslipidem ia Dyslipidem ia Disease Active 12-08 00:00: 00 [facility] Essential hypertensi on Essential hypertensi on Disease Active 12-08 00:00: 00 [facility] Hypogonadi sm in male Hypogonadi sm in male Disease Active 12-08 00:00: 00 [facility] Type 2 diabetes mellitus without complicati on, without long-term current use of insulin Type 2 diabetes mellitus without complicati on, without long-term current use of insulin Disease Active 12-08 00:00: 00 [facility] Allergies, Adverse Reactions, Alerts Allergy Name Allergy Type Status Severity Reaction(s) Onset Date Inactive Date Treating Clinician Comments Source NO KNOWN ALLERGIE S Drug Class Active [facility] Family History Family Member Diagnosis Comments Start Date Stop Date Sourc e Natural father [facility] Natural mother Diabetes [facility] Social History Social Habit Start Date Stop Date Quantity Comments Source [facility] Alcoholic beverage intake 2024-11-23 00:00:00 2024-11-23 00:00:00 Current non-drinker of alcohol (finding) [facility] History of Social function 2024-05-10 00:00:00 2024-05-10 00:00:00 [facility] Tobacco use and exposure 2023-10-22 00:00:00 2023-10-22 00:00:00 User of smokeless tobacco [facility] Cigarettes smoked current (pack per day) - Reported 2023-10-22 00:00:00 2023-10-22 00:00:00 [facility] Cigarette pack-years 2023-10-22 00:00:00 2023-10-22 00:00:00 [facility] Tobacco Comment 2023-10-22 00:00:00 2023-10-22 00:00:00 Smokes Cigars on occasionSmokes marijuana recreationally [facility] Alcohol intake 2023-07-14 00:00:00 2023-07-14 00:00:00 Current non-drinker of alcohol (finding) [facility] Exposure to SARS-CoV-2 (event) 2022-03-18 00:00:00 2022-03-28 09:46:00 Not sure [facility] History of tobacco use 1957-11-25 00:00:00 1987-11-26 00:00:00 Passive smoker [facility] Sex assigned at 1960 00:00:00 1960 00:00:00 [facility] Smoking Status Start Date Stop Date Source Ex-smoker 2023-10-22 00:00:00 2023-10-22 00:00:00 [facility] Medications Ordered Medication Name Filled Medication Name Start Date Stop Date Current Medication? Ordering Clinician Indication Dosage Frequency Signature (SIG) Comments Components Source ezetimibe 10 mg tablet 10-21 00:00: 00 Yes [id number] 10mg Take 1 tablet by mouth in the morning. [facility] Blood-Gluco se Sensor (FREESTYLE PEPPER 3 PLUS SENSOR) Jean Carlos 10-21 00:00: 00 Yes [id number] Change Q15 days. Use as directed. [facility] insulin degludec (TRESIBA FLEXTOUCH U-100) 100 unit/mL (3 mL) InPn 10-21 00:00: 00 Yes [id number] 27U inject 27 Units under the skin at bedtime. IF BLOOD SUGAR 80-120 GIVE 14 UNITS & DO NOT TAKE IF BS<80 [facility] Insulin [place], Disposable, (PEN NEEDLE) 31 gauge x 5/16" Ndle 10-21 00:00: 00 Yes [id number] Use as directed once a day [facility] lancets (ONETOUCH DELICA PLUS LANCET) 33 gauge Misc 10-21 00:00: 00 Yes [id number] Use as directed to check blood sugar 3 times a day for diagnosis of Type 2 DM, e11.65 [facility] metformin ER 500 mg 24 hr tablet 10-21 00:00: 00 Yes [id number] 500mg Take 1 tablet by mouth in the morning and 1 tablet in the evening. Take with meals. [facility] tirzepatide (MOUNJARO) 7.5 mg/0.5 mL subcutaneou s injection pen 10-21 00:00: 00 Yes [id number] 7.5mg inject 7.5 mg under the skin weekly. [facility] pioglitazon e 30 mg tablet 10-21 00:00: 00 Yes [id number] 30mg Take 1 tablet by mouth every morning. [facility] MOUNJARO 2.5 mg/0.5 mL subcutaneou s injection pen 10-19 00:00: 00 10-21 00:00 :00 No INJECT 1 PEN'S CONTENTS UNDER THE SKIN 1 DAY EACH WEEK [facility] HYDROcodone -acetaminop hen (NORCO 5) tablet 1 tablet 08-12 00:00: 00 08-11 23:58 :00 No 1{tbl} 1 tablet, Oral, ONCE, 1 dose, On Thu08/11/24 at 1900, SANDI [facility] atorvastati n 40 mg tablet 08-11 00:00: 00 Yes [id number] 40mg Take 1 tablet by mouth in the morning. [facility] lidocaine 1% (PF) (XYLOCAINE) injection 5 mL 07-19 15:22: 00 07-19 15:22 :00 No [id number] 5mL 5 mL, Infiltrati on, ONCE, 1 dose, On Thu07/19/24 at 1030, Routine [facility] iohexoL (OMNIPAQUE 300-50 mL)) injection 3 mL 07-19 15:22: 07-19 15:22 :00 No [id number] 3mL 3 mL, Injection, ONCE, 1 dose, On Thu07/19/24 at 1030, Routine [facility] NaCl 0.9% (NS) injection 8 mL 07-19 15:22: 00 07-19 15:23 :00 No [id number] 8mL 8 mL, Infiltrati on, ONCE, 1 dose, On Thu07/19/24 at 1030, Routine [facility] triamcinolo ne acetonide (KENALOG) injection 40 mg 07-19 15:22: 00 07-19 15:23 :00 No [id number] 40mg 40 mg, Epidural, ONCE, 1 dose, On Thu07/19/24 at 1030, Routine [facility] hydralAZINE (APRESOLINE ) injection 10 mg 07-14 16:15: 00 07-14 15:25 :00 No [id number] 10mg 10 mg, Slow IV Push, ONCE, 1 dose, On Thu07/14/24 at 1115, STAT [facility] insulin regular human (HUMULIN R) injection 10 Units 07-14 15:45: 00 07-14 15:19 :00 No [id number] 10U 10 Units, Subcutaneo us, ONCE, 1 dose, On Thu07/14/24 at 1045, Routine, Indication for insulin: Hyperglyce franky [facility] insulin regular human (HUMULIN R) injection 10 Units 07-14 14:45: 00 07-14 14:02 :00 No [id number] 10U 10 Units, Subcutaneo us, ONCE, 1 dose, On Thu07/14/24 at 0945, Routine, Indication for insulin: Hyperglyce [facility] dextrose 10 % in water (D10W) IV infusion 07-14 12:07: 58 Yes [id number] at 20-40 mL/hr, IV Infusion, TITRATE, Starting on Thu07/14/24 at 0707, Until Discontinu ed, Routine, CV Preprocedu re [facility] gabapentin 600 mg tablet 10 00:00: 00 Yes [facility] tirzepatide (MOUNJARO) 5 mg/0.5 mL subcutaneou s injection pen [id number] 06-22 00:00: 00 10-21 00:00 :00 No [id number] 5mg inject 5 mg under the skin weekly. [facility] aspirin 81 mg chewable tablet 2025-0 2-24 16:08: 02 08-11 00:00 :00 No 81mg Take 1 tablet by mouth in the morning. [facility] metoprolol succinate XL 25 mg 24 hr tablet 24 00:00: 00 08-11 00:00 :00 No 25mg Take 1 tablet by mouth in the morning. [facility] atorvastati n 40 mg tablet 06-20 00:00: 08-11 00:00 :00 No 40mg Take 1 tablet by mouth at bedtime. [facility] insulin degludec (TRESIBA FLEXTOUCH U-100) 100 unit/mL (3 mL) InPn 06-17 00:00: 00 10-21 00:00 :00 No [id number] 30U inject 30 Units under the skin at bedtime. IF BLOOD SUGAR 80-120 GIVE 14 UNITS & DO NOT TAKE IF BS<80 [facility] tirzepatide (MOUNJARO) 5 mg/0.5 mL subcutaneou s injection pem 06-17 00:00: 00 06-22 00:00 :00 No [id number] 5mg inject 5 mg under the skin weekly. [facility] iopamidol (ISOVUE 370-500 mL) injection 85 mL 06-14 21:45: 00 06-14 20:58 :00 No [id number] 85mL 85 mL, Intravenou s, ONCE, 1 dose, On Thu06/14/24 at 1545, Routine [facility] metoprolol tartrate (LOPRESSOR) tablet 100 mg 06-14 20:00: 00 06-14 19:11 :00 No [id number] 100mg 100 mg, Oral, ONCE, 1 dose, On Thu06/14/24 at 1400, Routine [facility] tirzepatide (MOUNJARO) 2.5 mg/0.5 mL subcutaneou s injection pen 2- 00:00: 00 06-17 00:00 :00 No [id number] 2.5mg inject 2.5 mg under the skin weekly. [facility] diazePAM (VALIUM) 5 mg tablet 05-25 00:00: 00 Yes [id number] 5mg Take 1 tablet by mouth 2 (two) times daily as needed for Anxiety. [facility] regadenoson (LEXISCAN) injection 0.4 mg 05-24 17:45: 00 05-24 16:58 :00 No [id number] .4mg 0.4 mg, IV Push, ONCE, 1 dose, On Thu05/24/24 at 1145, Routine, membership assistant approving Restricted medication : JADE TO [facility] tc 99m-tetrofo smin (MYOVIEW) injection 41.3 millicurie 05-24 17:15: 00 05-24 17:09 :00 No [id number] 41.3mCi 41.3 millicurie , Intravenou s, ONCE, 1 dose, On Thu05/24/24 at 1115, Routine [facility] tc 99m-tetrofo smin (MYOVIEW) injection 15.4 millicurie 05-24 15:15: 00 05-24 15:14 :00 No [id number] 15.4mCi 15.4 millicurie , Intravenou s, ONCE, 1 dose, On Thu05/24/24 at 0915, Routine [facility] TRESIBA FLEXTOUCH U-100 100 unit/mL (3 mL) InPn 2023-04- 00:00: 00 06-17 00:00 :00 No [id number] INJECT 28 UNITS UNDER THE SKIN EVERY NIGHT AT BEDTIME - IF BLOOD SUGAR 80-120 GIVE 14 UNITS & DO NOT TAKE IF BS<80 [facility] blood sugar diagnostic (ONETOUCH VERIO TEST STRIPS) strip 2023-04 00:00: 00 Yes [id number] USE TO TEST BLOOD SUGAR 3 TIMES A DAY DIRECTED [facility] blood sugar diagnostic (ONETOUCH VERIO TEST STRIPS) strip 2023-04 00:00: 00 Yes [id number] USE TO TEST BLOOD SUGAR 3 TIMES A DAY DIRECTED [facility] sodium chloride 0.9 % irrigation solution 2023-04 22:19: 00 03-11 16:21 :03 No PRN, Starting on Angela 03/10/24 at 1619, Until Thu03/11/24 at 1021, Intra-op [facility] sugammadex (BRIDION) injection 2023-04 21:52: 00 03-10 22:05 :51 No IV Push, ONCE INTRA PROCEDURE, Starting on Angela 03/10/24 at 1552, Until Angela 03/10/24 at 1605, Routine, Intra-op [facility] ondansetron (ZOFRAN (PF)) injection 4 mg 2023-04 21:48: 44 03-11 16:21 :04 No 4mg 4 mg, Slow IV Push, Q4HPRN, 1 dose, Starting on Angela 03/10/24 at 1548, Until Thu03/11/24 at 1021, Administer over 2-5 Minutes, 2 mL, DSU Recovery [facility] HYDROmorphO ne (DILAUDID) injection 0.2 mg 2023-04 21:48: 39 03-11 16:21 :03 No .2mg 0.2 mg, Slow IV Push, Q5MIN PRN, 10 doses, Starting on Angela 03/10/24 at 1548, Until Thu03/11/24 at 1021, Routine, Pain (scale 7-10), PACU, Is this medication approved by a Faculty level provider? Yes, membership assistant approving Restricted medication : PACU RECOVERY [facility] FENTanyl (PF) (SUBLIMAZE) injection 25 mcg 2023-04 21:48: 39 03-11 16:21 :03 No 25ug 25 mcg, Slow IV Push, Q5MIN PRN, 4 doses, Starting on Angela 03/10/24 at 1548, Until Thu03/11/24 at 1021, Routine, Pain Scale 4-6, PACU [facility] ondansetron (ZOFRAN (PF)) injection 4 mg 2023-04 21:48: 39 03-10 22:12 :00 No 4mg 4 mg, Slow IV Push, PRN, 1 dose, Starting on Angela 03/10/24 at 1548, Until Angela 03/10/24 at 1612, Administer over 2-5 Minutes, 2 mL, PACU [facility] lidocaine (XYLOCAINE) 2 % jelly URO-JET 2023-04 21:48: 00 03-11 16:21 :03 No PRN, Starting on Angela 03/10/24 at 1548, Until Thu03/11/24 at 1021, Routine, Intra-op [facility] ondansetron (ZOFRAN (PF)) injection 2023-04 21:45: 00 03-10 22:05 :22 No Slow IV Push, ONCE INTRA PROCEDURE, Starting on Angela 03/10/24 at 1545, Until Angela 03/10/24 at 1605, Administer over 2-5 Minutes, Intra-op [facility] dexmedeTOMI Dine (PRECEDEX) injection 2023-04 21:23: 00 03-10 22:05 :22 No Intravenou s, ONCE INTRA PROCEDURE, Starting on Angela 03/10/24 at 1523, Until Angela 03/10/24 at 1605, Routine, [facility] dexamethaso [facility] (DECADRON PHOSPHATE) injection 2023-04 21:18: 00 03-10 22:05 :22 No IV Push, ONCE INTRA PROCEDURE, Starting on Angela 03/10/24 at 1518, Until Angela 03/10/24 at 1605, Routine, Intra-op [facility] ceFAZolin (ANCEF) injection 2023-04 21:12: 00 03-10 22:05 :22 No Slow IV Push, ONCE INTRA PROCEDURE, Starting on Angela 03/10/24 at 1512, Until Angela 03/10/24 at 1605, SANDI, Intra-op [facility] PHENYLephri ne 1000 mcg/10 mL in 0.9% NaCl syringe 2023-04 21:07: 00 03-10 22:05 :22 No Slow IV Push, ONCE INTRA PROCEDURE, Starting on Angela 03/10/24 at 1507, Until Angela 03/10/24 at 1605, Routine, Intra-op [facility] sodium chloride 0.9 % irrigation solution 2023-04 21:05: 00 03-10 22:08 :29 No PRN, Starting on Angela 03/10/24 at 1505, Until Angela 03/10/24 at 1608, Intra-op [facility] povidone-io dine (BETADINE) 10 % solution 2023-04 21:01: 00 03-10 22:08 :29 No PRN, Starting on Angela 03/10/24 at 1501, Until Angela 03/10/24 at 1608, Routine, Intra-op [facility] rocuronium (ZEMURON) injection 2023-04 20:50: 00 03-10 22:05 :22 No IV Push, ONCE INTRA PROCEDURE, Starting on Angela 03/10/24 at 1450, Until Angela 03/10/24 at 1605, Routine, Intra-op [facility] lactated ringers IV infusion 2023-04 20:49: 00 03-10 22:05 :22 No IV Infusion, CONTINUOUS PRN, Starting on Angela 03/10/24 at 1449, Until Angela 03/10/24 at 1605, Routine, Intra-op [facility] propofoL IV infusion 2023-04 20:49: 00 03-10 22:05 :22 No IV Infusion, ONCE INTRA PROCEDURE, Starting on Angela 03/10/24 at 1449, Until Angela 03/10/24 at 1605, Routine, Intra-op [facility] lidocaine 1% (XYLOCAINE) 100 mg/10 mL (1 %) injection 2023-04 20:49: 00 03-10 22:05 :22 No Slow IV Push, ONCE INTRA PROCEDURE, Starting on Angela 03/10/24 at 1449, Until Angela 03/10/24 at 1605, Routine, Intra-op [facility] FENTanyl (PF) (SUBLIMAZE) injection 2023-04 20:49: 00 03-10 22:05 :22 No Intravenou s, ONCE INTRA PROCEDURE, Starting on Angela 03/10/24 at 1449, Until Angela 03/10/24 at 1605, Routine, Intra-op [facility] HYDROmorphO ne (DILAUDID) injection 2023-04 20:46: 00 03-10 22:05 :22 No Slow IV Push, ONCE INTRA PROCEDURE, Starting on Angela 03/10/24 at 1446, Until Angela 03/10/24 at 1605, Routine, [facility] cephALEXin 250 mg capsule 2023-04 00:00: 00 10-21 00:00 :00 No [id number] 500mg Take 2 capsules by mouth every 12 (twelve) hours. [facility] Blood-Gluco se Sensor (DEXCOM G7 SENSOR) Jean Carlos 2023-04 00:00: 00 Yes [id number] 1{each} 1 Each by subcutaneo us (via wearable injector) route every 10 (ten) days. Use as directed [facility] Blood-Gluco se Sensor (DEXCOM G7 SENSOR) Jean Carlos 2023-04 00:00: 00 10-21 00:00 :00 No [id number] 1{each} 1 Each by subcutaneo us (via wearable injector) route every 10 (ten) days. Use as directed [facility] iohexoL (OMNIPAQUE 300-50 mL)) injection 1 mL 2023-04 20:45: 00 03-01 20:42 :00 No [id number] 1mL 1 mL, Intra-sondra cular, ONCE, 1 dose, On Thu03/01/24 at 1445, Routine [facility] lidocaine 1% (PF) (XYLOCAINE) injection 10 mL 2023-04 20:45: 00 03-01 20:42 :00 No [id number] 10mL 10 mL, Infiltrati on, ONCE, 1 dose, On Thu03/01/24 at 1445, Routine [facility] triamcinolo ne acetonide (KENALOG) injection 80 mg 2023-04 20:45: 00 03-01 20:42 :00 No [id number] 80mg 80 mg, Infiltrati on, ONCE, 1 dose, On Thu03/01/24 at 1445, Routine [facility] NaCl 0.9% (NS) injection 10 mL 2023-04 20:45: 00 03-01 20:42 :00 No [id number] 10mL 10 mL, Infiltrati on, ONCE, 1 dose, On Thu03/01/24 at 1445, Routine [facility] sodium bicarbonate 1 mEq/mL (8.4 %) injection 1 mL 2023-04 20:45: 00 03-01 20:42 :00 No [id number] 1mL 1 mL, Infiltrati on, ONCE, 1 dose, On Thu03/01/24 at 1445, Routine [facility] fentanyl PF (SUBLIMAZE (PF)) injection 2023-04 20:43: 41 03-01 20:43 :41 No TITRATE - FOR PROCEDURE USE, 1 dose, Starting on Thu03/01/24 at 1443, Until Thu03/01/24 at 1443, Routine [facility] midazolam (VERSED) injection 2023-04 20:35: 00 03-01 20:35 :00 No TITRATE - FOR PROCEDURE USE, 1 dose, Starting on Thu03/01/24 at 1435, Until Thu03/01/24 at 1435, Routine [facility] sucralfate 1 gram tablet 2023-04 1 00:00: 00 Yes 1g Take 1 tablet by mouth before meals and at bedtime. [facility] pantoprazol e 40 mg EC tablet 2023-04 0-03 00:00: 00 Yes 40mg Take 1 tablet by mouth in the morning. [facility] diazePAM (VALIUM) tablet 2.5 mg 01-02 07:45: 00 01-02 07:46 :00 No 2.5mg 2.5 mg, Oral, ONCE, 1 dose, On Thu01/03/24 at 0245, SANDI [facility] NaCl 0.9% (NS) bolus infusion 1,000 mL 01-02 07:00: 00 01-02 07:00 :00 No 1000mL at 999 mL/hr, 1,000 mL, IV Infusion, ONCE, 1 dose, On Thu01/03/24 at 0200, STAT [facility] meclizine (TRAVEL-EAS E (MECLIZINE) ) tablet 25 mg 01-02 06:00: 00 01-02 05:54 :00 No 25mg 25 mg, Oral, ONCE, 1 dose, On Thu01/03/24 at 0100, SANDI [facility] NaCl 0.9% (NS) injection 5 mL 01-02 05:04: 07 Yes 5mL 5 mL, Slow IV Push, PRN - SEE INSTRUCTIO NS, Starting on Thu01/03/24 at 0004, Until Discontinu ed, 10 mL [facility] meclizine 25 mg tablet 01-02 00:00: 00 Yes [id number] 25mg Take 1 tablet by mouth every 6 (six) hours. [facility] ondansetron 4 mg disintegrat ing tablet 01-02 00:00: 00 Yes [id number] 4mg Take 1 tablet by mouth every 4 (four) hours as needed for Nausea and Vomiting (N/V). [facility] famotidine 20 mg tablet 12-20 00:00: 00 Yes 20mg Take 1 tablet by mouth at bedtime. [facility] hydrOXYzine 25 mg tablet 12-13 00:00: 00 06-17 00:00 :00 No 25mg Take 1 tablet by mouth every 8 (eight) hours as needed. [facility] metFORMIN 500 mg tablet 12-13 00:00: 00 03-08 00:00 :00 No [facility] gadoteridol (PROHANCE-2 0 mL) injection 0.2 mL/kg 12-10 18:45: 00 12-10 18:31 :00 No [id number] .2mL/kg 0.2 mL/kg, Intravenou s, ONCE, 1 dose, On Thu12/11/23 at 1345, Routine [facility] metformin ER 500 mg 24 hr tablet 12-03 00:00: 10-21 00:00 :00 No [id number] 1000mg Take 2 tablets by mouth in the morning and 2 tablets in the evening. Take with meals. [facility] pioglitazon e 30 mg tablet 12-03 00:00: 00 10-21 00:00 :00 No [id number] 30mg Take 1 tablet by mouth every morning. [facility] insulin degludec (TRESIBA FLEXTOUCH U-100) 100 unit/mL (3 mL) In 12-03 00:00: 00 04-22 00:00 :00 No [id number] 28U inject 28 Units under the skin at bedtime. Pleas take half dose if blood glucose 80 - 120 mg/dL, hold if less than 80. [facility] glipiZIDE XL 10 mg 24 hr tablet 12-01 00:00: 00 03-08 00:00 :00 No [facility] metoclopram xavi HCl 10 mg tablet 11-18 00:00: 00 Yes 10mg Take 1 tablet by mouth every 6 (six) hours as needed. [facility] sodium,pota ssium,mag sulfates 17.5-3.13-1 .6 gram 11-18 00:00: 00 06-17 00:00 :00 No [facility] insulin degludec (TRESIBA FLEXTOUCH U-100) 100 unit/mL (3 mL) In 10-27 00:00: 00 12-03 00:00 :00 No [id number] INJECT 20 UNITS UNDER THE SKIN EVERY MORNING [facility] insulin glargine (LANTUS U-100) injection 15 Units 10-22 14:00: 00 Yes 15U 15 Units, Subcutaneo us, DAILY, First dose on Thu10/23/23 at 0900, Until Discontinu ed, Routine [facility] montelukast (SINGULAIR) tablet 10 mg 10-22 14:00: 00 Yes 10mg 10 mg, Oral, DAILY, First dose on Thu10/23/23 at 0900, Until Discontinu ed, Routine [facility] amLODIPine (NORVASC) tablet 10 mg 10-22 14:00: 00 Yes 10mg 10 mg, Oral, DAILY, First dose on Thu10/23/23 at 0900, Until Discontinu ed, Routine [facility] pantoprazol e (PROTONIX) EC tablet 40 mg 10-22 13:00: 00 Yes 40mg 40 mg, Oral, BID, First dose (after last modificati on) on Thu10/23/23 at 0800, Until Discontinu ed, Routine [facility] ferrous sulfate tablet 325 mg 10-22 13:00: 00 Yes 325mg 325 mg, Oral, BID MEALS, First dose on Thu10/23/23 at 0800, Until Discontinu ed, Routine [facility] Sliding Scale Insulin - Lispro (HumaLOG) 10-22 13:00: 00 Yes [facility] hydrOXYzine (ATARAX) tablet 25 mg 10-22 11:45: 56 Yes 25mg 25 mg, Oral, Q6HPRN, Starting on Thu10/23/23 at 0645, Until Discontinu ed, Routine, Itching [facility] sodium ferric gluconate (FERRLECIT) 125 mg in NaCl 0.9% (NS) 100 mL IV piggyback 10-22 10:00: 00 10-22 11:04 :07 No 125mg 125 mg, IV Piggyback, ONCE, 1 dose, On Thu10/23/23 at 0500, Administer over 60 Minutes, 100 mL [facility] tamsulosin (FLOMAX) capsule 0.4 mg 10-22 03:45: 00 Yes .4mg [facility] mirtazapine (REMERON) tablet 15 mg 10-22 03:45: 00 Yes 15mg [facility] lisinopriL (PRINIVIL,Z ESTRIL) tablet 20 mg 10-22 03:45: 00 Yes 20mg [facility] atorvastati n (LIPITOR) tablet 40 mg 10-22 03:45: 00 Yes 40mg [facility] morphine (2 mg/mL) injection 2 mg 10-22 03:06: 51 Yes 2mg 2 mg, Slow IV Push, Q4HPRN, Starting on Thu10/22/23 at 2206, Until Discontinu ed, Routine, Pain (scale 7-10) [facility] HYDROcodone -acetaminop hen (NORCO 5) 5-325 mg tablet 1 tablet 10-22 03:06: 34 Yes 1{tbl} 1 tablet, Oral, Q6HPRN, Starting on Thu10/22/23 at 2206, Until Discontinu ed, Routine, Pain (scale 4-6) [facility] glucagon (GLUCAGEN DIAGNOSTIC KIT) injection 1 mg 10-22 02:34: 39 Yes 1mg [facility] dextrose 50 % in water (D50W) injection 25 mL 10-22 02:34: 39 Yes 25mL [facility] ondansetron (ZOFRAN (PF)) injection 4 mg 10-22 02:34: 34 Yes 4mg [facility] acetaminoph en (TYLENOL) tablet 650 mg 10-22 02:34: 25 Yes 650mg [facility] HYDROcodone -acetaminop hen (NORCO 5) 5-325 mg tablet 1 tablet 10-22 00:30: 00 10-22 00:29 :00 No 1{tbl} 1 tablet, Oral, ONCE, 1 dose, On Thu10/22/23 at 1930, [facility] acute hospital hydrOXYzine (ATARAX) tablet 25 mg 10-22 00:30: 00 10-22 00:29 :00 No 25mg 25 mg, Oral, ONCE, 1 dose, On Thu10/22/23 at 1930, [facility] acute hospital pantoprazol e 40 mg EC tablet 10-22 00:00: 00 11-22 04:59 :00 No [id number] 40mg Take 1 tablet by mouth in the morning and 1 tablet in the evening. Do all this for 30 days. [facility] hydrOXYzine 25 mg tablet 10-22 00:00: 00 11-22 04:59 :00 No [id number] 25mg Take 1 tablet by mouth every 6 (six) hours as needed for Itching for up to 30 days. [facility] ferrous sulfate 325 mg (65 mg iron) tablet 10-22 00:00: 00 11-22 04:59 :00 No [id number] 325mg Take 1 tablet by mouth in the morning and 1 tablet in the evening. Take with meals. Do all this for 30 days. [facility] FENTanyl PF (SUBLIMAZE (PF)) injection 100 mcg 10-21 22:00: 00 10-21 22:31 :00 No 100ug 100 mcg, Slow IV Push, ONCE, 1 dose, On Thu10/22/23 at 1700, Routine [facility] HYDROcodone -acetaminop hen (NORCO) 10-325 mg tablet 1 tablet 10-04 07:15: 00 10-04 06:31 :00 No 1{tbl} 1 tablet, Oral, ONCE NOW, 1 dose, On Thu10/05/23 at 0215, [facility] acute hospital methocarbam oL (ROBAXIN) tablet 500 mg 10-04 06:30: 00 10-04 06:31 :00 No 500mg 500 mg, Oral, ONCE, 1 dose, On Thu10/05/23 at 0130, [facility] acute hospital FENTanyl PF (SUBLIMAZE (PF)) injection 100 mcg 10-04 05:30: 00 10-04 04:35 :00 No 100ug 100 mcg, Intramuscu lar, ONCE, 1 dose, On Thu10/05/23 at 0030, Routine [facility] methocarbam oL 500 mg tablet 10-04 00:00: 00 Yes [id number] 500mg Take 1 tablet by mouth every 6 (six) hours as needed for Pain (scale 7-10) (MUSCLE SPASM). [facility] tirzepatide (MOUNJARO) 2.5 mg/0.5 mL subcutaneou s injection 09-01 00:00: 00 06-09 00:00 :00 No [id number] 2.5mg inject 2.5 mg under the skin weekly. [facility] lisinopriL 40 mg tablet 08-31 15:39: 56 Yes 40mg Take 1 tablet by mouth in the morning. [facility] aspirin-mauricio taminophen- caffeine (EXCEDRIN MIGRAINE) 250-250-65 mg per tablet 08-31 15:39: 56 Yes 2{tbl} Take 2 tablets by mouth as needed for Pain. [facility] lancets (ONETOUCH DELICA PLUS LANCET) 33 gauge [facility] 08-31 00:00: 00 Yes [id number] Use as directed to check blood sugar 3 times a day for diagnosis of Type 2 DM, e11.65 [facility] Blood-Gluco se Meter (ONETOUCH VERIO FLEX METER) [facility] 08-31 00:00: 00 Yes [id number] Use as directed [facility] lancets (ONETOUCH DELICA PLUS LANCET) 33 gauge [facility] 08-31 00:00: 00 10-21 00:00 :00 No [id number] Use as directed to check blood sugar 3 times a day for diagnosis of Type 2 DM, e11.65 [facility] blood sugar diagnostic (ONETOUCH VERIO TEST STRIPS) strip 08-31 00:00: 00 03-17 00:00 :00 No [id number] Use as directed to check blood sugar 3 times daily for Type 2 diabetes mellitus [facility] Blood-Gluco se Sensor (FREESTYLE PEPPER 3 SENSOR) Jean Carlso 08-31 00:00: 00 12-03 00:00 :00 No [id number] Use as directed every 2 weeks [facility] Blood-Gluco se Meter,Liam nuous (FREESTYLE PEPPER 3 READER) Misc 08-31 00:00: 00 12-03 00:00 :00 No [id number] Use as directed [facility] tirzepatide (MOUNJARO) 2.5 mg/0.5 mL subcutaneou s injection 08-13 00:00: 00 09-01 00:00 :00 No [id number] 2.5mg inject 2.5 mg under the skin weekly. This is the initial dose. [facility] PIOGLITAZON E 30 mg tablet 07-26 00:00: 00 12-03 00:00 :00 No [id number] 30mg TAKE ONE TABLET BY MOUTH EVERY MORNING [facility] metformin ER 500 mg 24 hr tablet 07-13 00:00: 00 12-03 00:00 :00 No [id number] 1000mg Take 2 tablets in the morning and 2 tablets in the evening. Take with meals. [facility] insulin degludec (TRESIBA FLEXTOUCH U-100) 100 unit/mL (3 mL) InPn 07-13 00:00: 00 10-27 00:00 :00 No [id number] 20U inject 20-24 Units under the skin every morning. If your BG is less than 80, HOLD your insulin. If your BG is between 80-120, please take HALF of your insulin. [facility] tirzepatide (MOUNJARO) 5 mg/0.5 mL subcutaneou s injection 07-13 00:00: 00 08-31 00:00 :00 No [id number] 5mg inject 5 mg under the skin weekly. Only take this dose after you have finished the 2.5 mg weekly dose [facility] glipiZIDE XL 10 mg 24 hr tablet 3- 00:00: 00 08-31 00:00 :00 No [id number] 10mg Take 1 tablet by mouth in the morning and 1 tablet in the evening. Take with meals. [facility] tirzepatide (MOUNJARO) 2.5 mg/0.5 mL subcutaneou s injection - 00:00: 00 08-13 00:00 :00 No [id number] 2.5mg inject 2.5 mg under the skin weekly. This is the initial dose. [facility] TRULICITY 4.5 mg/0.5 mL PnIj 07-12 00:00: 00 Yes [id number] INJECT 4.5 MG UNDER THE SKIN ONCE WEEKLY MUST BE SEEN ON 07/13/23 FOR FUTHER REFILLS [facility] montelukast 10 mg tablet 3- 00:00: 00 Yes 10mg Take 1 tablet by mouth. [facility] hydrOXYzine 50 mg tablet 3-05 00:00: 00 10-22 00:00 :00 No [facility] pioglitazon e 30 mg tablet 3-04 00:00: 00 07-26 00:00 :00 No [id number] 30mg TAKE ONE TABLET BY MOUTH EVERY MORNING [facility] metformin ER 500 mg 24 hr tablet 2-27 00:00: 00 07-13 00:00 :00 No [id number] TAKE ONE TABLET BY MOUTH TWICE A DAY WITH MEALS [facility] dulaglutide (TRULICITY) 4.5 mg/0.5 mL PnIj 0 2-22 00:00: 00 07-12 00:00 :00 No [id number] 4.5mg inject 1 Pen under the skin weekly. Must be seen in clinic on 07/13/23 for further refills. [facility] lisinopriL 40 mg tablet 05-22 12:49: 18 Yes 40mg Take 1 tablet by mouth in the morning and 1 tablet in the evening. [facility] aspirin-mauricio taminophen- caffeine (EXCEDRIN MIGRAINE) 250-250-65 mg per tablet 05-22 12:49: 18 Yes 2{tbl} Take 2 tablets by mouth as needed for Pain. [facility] diphenhydrA MINE (BENADRYL) tablet 50 mg 05-22 04:45: 00 Yes 50mg 50 mg, Oral, Q6HPRN, Starting on Thu05/21/23 at 2245, Until Discontinu ed, Routine, Itching [facility] insulin glargine (LANTUS U-100) injection 30 Units 05-22 03:00: 00 Yes 30U 30 Units, Subcutaneo us, QHS, First dose (after last modificati on) on Thu05/21/23 at 2100, Until Discontinu ed, Routine [facility] gabapentin 100 mg capsule 05-22 00:00: 00 06-22 05:59 :00 No [id number] 100mg Take 1 capsule by mouth in the morning and 1 capsule at noon and 1 capsule in the evening. Do all this for 30 days. [facility] HYDROcodone -acetaminop hen 10-325 mg tablet 05-22 00:00: 00 05-30 05:59 :00 No [id number] 1{tbl} Take 1 tablet by mouth every 4 (four) hours as needed for Pain (scale 4-6) for up to 7 days. Indication s: acute pain [facility] insulin lispro (human) (HumaLOG U-100) injection 10 Units 05-21 23:00: 00 Yes 10U 10 Units, Subcutaneo us, TID MEALS, First dose (after last modificati on) on Thu05/21/23 at 1700, Until Discontinu ed, Routine [facility] NaCl 0.9% (NS) IV infusion 1,000 mL 05-21 18:15: 00 Yes 1000mL at 100 mL/hr, IV Infusion, CONTINUOUS , Starting on Thu05/21/23 at 1215, Until Discontinu ed, Routine [facility] insulin lispro (human) (HumaLOG U-100) injection 8 Units 05-21 18:00: 00 Yes 8U 8 Units, Subcutaneo us, TID MEALS, First dose (after last modificati on) on Thu05/21/23 at 1200, Until Discontinu ed, Routine [facility] amLODIPine (NORVASC) tablet 10 mg 05-21 15:00: 00 Yes 10mg 10 mg, Oral, DAILY, First dose on Thu05/21/23 at 0900, Until Discontinu ed, Routine [facility] diphenhydrA MINE (BENADRYL) tablet 25 mg 05-21 03:24: 55 Yes 25mg 25 mg, Oral, Q4HPRN, Starting on Thu05/20/23 at 2124, Until Discontinu ed, Routine, Itching [facility] insulin glargine (LANTUS U-100) injection 25 Units 05-21 03:00: 00 Yes 25U 25 Units, Subcutaneo us, QHS, First dose on Thu05/20/23 at 2100, Until Discontinu ed, Routine [facility] tamsulosin (FLOMAX) capsule 0.4 mg 05-21 03:00: 00 Yes .4mg 0.4 mg, Oral, QHS, First dose on Thu05/20/23 at 2100, Until Discontinu ed, Routine [facility] atorvastati n (LIPITOR) tablet 40 mg 05-21 03:00: 00 Yes 40mg 40 mg, Oral, QHS, First dose on Thu05/20/23 at 2100, Until Discontinu ed, Routine [facility] Sliding Scale Insulin - Lispro (HumaLOG) 05-20 23:00: 00 Yes Subcutaneo us, TID MEALS+HS, First dose on Thu05/20/23 at 1700, Until Discontinu ed, Routine [facility] methocarbam oL (ROBAXIN) tablet 500 mg 05-20 22:00: 00 Yes 500mg 500 mg, Oral, QID, First dose on Thu05/20/23 at 1600, Until Discontinu ed, Routine [facility] ibuprofen (IBU) tablet 800 mg 05-20 20:00: 00 05-21 17:08 :56 No 800mg 800 mg, Oral, Q8H, First dose on Thu05/20/23 at 1400, Until Discontinu ed, Routine [facility] glucagon (GLUCAGEN DIAGNOSTIC KIT) injection 1 mg 05-20 18:09: 09 Yes 1mg 1 mg, Intramuscu lar, PRN, Starting on Thu05/20/23 at 1209, Until Discontinu ed, SANDI, Blood Glucose < or = 70 mg/dL and patient is NPO, unable to swallow or has mental changes. [facility] dextrose 50 % in water (D50W) injection 25 mL 05-20 18:09: 09 Yes 25mL 25 mL, Slow IV Push, PRN, Starting on Thu05/20/23 at 1209, Until Discontinu ed, SANDI, Blood Glucose < or = 70 mg/dL and patient is NPO, unable to swallow or has mental status changes. [facility] morpHINE (2 mg/mL) injection 4 mg 05-20 18:08: 23 Yes 4mg 4 mg, Slow IV Push, Q2HPRN, Starting on Thu05/20/23 at 1208, Until Discontinu ed, Routine, Pain (scale 7-10) [facility] naloxone (NARCAN) injection 0.4 mg 05-20 18:08: 23 Yes .4mg 0.4 mg, Slow IV Push, PRN, Starting on Thu05/20/23 at 1208, Until Discontinu ed, SANDI, Sedation/R espiratory Depression [facility] HYDROcodone -acetaminop hen (NORCO) 10-325 mg tablet 1 tablet 05-20 18:08: 23 Yes [id number] 1{tbl} 1 tablet, Oral, Q4HPRN, Starting on Thu05/20/23 at 1208, Until Discontinu ed, Routine, Pain (scale 4-6) [facility] magnesium hydroxide (MILK OF MAGNESIA) 400 mg/5 mL suspension 15 mL 05-20 18:08: 23 Yes 15mL 15 mL, Oral, QIDPRN, Starting on Thu05/20/23 at 1208, Until Discontinu ed, Routine, Constipati on [facility] ondansetron (ZOFRAN (PF)) injection 4 mg 05-20 18:08: 23 Yes 4mg 4 mg, Slow IV Push, Q6HPRN, Starting on Thu05/20/23 at 1208, Until Discontinu ed, Routine, Nausea and Vomiting (N/V) [facility] bupivacaine -epinephrin e-pf (SENSORCAIN E W/EPINEPHRI NE) 0.25 %-1:200,000 injection 05-20 17:36: 00 05-20 18:37 :34 No PRN, Starting on Thu05/20/23 at 1136, Until Thu05/20/23 at 1237, Routine, Intra-op [facility] lisinopriL 40 mg tablet 05-20 15:23: 22 Yes 40mg Take 1 tablet by mouth in the morning and 1 tablet in the evening. [facility] aspirin-mauricio taminophen- caffeine (EXCEDRIN MIGRAINE) 250-250-65 mg per tablet 05-20 15:23: 22 Yes 2{tbl} Take 2 tablets by mouth as needed for Pain. [facility] insulin degludec (TRESIBA FLEXTOUCH U-100) 100 unit/mL (3 mL) InPn 05-18 00:00: 00 07-13 00:00 :00 No [id number] 20U inject 20 Units under the skin every morning. [facility] Insulin [place], Disposable, (PEN NEEDLE) 31 gauge x 5/16" Ndle 05-16 00:00: 00 10-21 00:00 :00 No [id number] Use as directed once a day [facility] dulaglutide (TRULICITY) 4.5 mg/0.5 mL PnIj 05-15 00:00: 00 06-17 00:00 :00 No [id number] 4.5mg inject 1 Pen under the skin weekly. [facility] aspirin-mauricio taminophen- caffeine (EXCEDRIN MIGRAINE) 250-250-65 mg per tablet 05-14 12:23: 13 Yes 2{tbl} Take 2 tablets by mouth as needed for Pain. [facility] lisinopriL 40 mg tablet 05-14 12:23: 12 Yes 40mg Take 1 tablet by mouth in the morning and 1 tablet in the evening. [facility] insulin degludec (TRESIBA FLEXTOUCH U-100) 100 unit/mL (3 mL) InPn 05-14 00:00: 00 05-18 00:00 :00 No [id number] 20U inject 20 Units under the skin every morning. [facility] Insulin [place], Disposable, (PEN NEEDLE) 31 gauge x 5/16" Ndle 05-14 00:00: 00 05-16 00:00 :00 No [id number] Use as directed once a day [facility] pantoprazol e 40 mg EC tablet 05-07 00:00: 00 10-22 00:00 :00 No [facility] tirzepatide (MOUNJARO) 5 mg/0.5 mL PnIj 2022-04 14:09: 31 04-24 00:00 :00 No 5mg inject 5 mg under the skin weekly. [facility] tirzepatide (MOUNJARO) 5 mg/0.5 mL subcutaneou s injection 2022-04 00:00: 00 05-15 00:00 :00 No INJECT 5 MG UNDER THE SKIN ONCE WEEKLY [facility] glipiZIDE XL 10 mg 24 hr tablet 2022-04 00:00: 00 07-13 00:00 :00 No [id number] TAKE 1 TABLET BY MOUTH TWICE A DAY (MORNING AND EVENING) WITH MEALS [facility] hydroCHLORO thiazide 25 mg tablet 2022-04 00:00: 00 Yes 25mg Take 1 tablet by mouth every morning and evening. [facility] mirtazapine 15 mg tablet 2022-04 00:00: 00 Yes 15mg Take 1 tablet by mouth at bedtime. [facility] tirzepatide (MOUNJARO) 5 mg/0.5 mL PnIj 12-19 10:20: 10 Yes 5mg inject 5 mg under the skin weekly. [facility] atorvastati n 40 mg tablet 12-19 00:00: 00 12-19 04:59 :00 No [id number] 40mg Take 1 tablet by mouth at bedtime. [facility] ibuprofen (IBU) tablet 600 mg 12-10 17:15: 00 12-10 17:16 :00 No 600mg 600 mg, Oral, ONCE, 1 dose, On Thu12/10/22 at 1215, SANDI [facility] foLIC acid 1 mg tablet 11-14 00:00: 00 12-15 04:59 :00 No [id number] 1mg Take 1 tablet by mouth in the morning for 30 days. [facility] thiamine 100 mg tablet 11-14 00:00: 00 12-15 04:59 :00 No [id number] 100mg Take 1 tablet by mouth in the morning for 30 days. [facility] aspirin 81 mg chewable tablet 11-14 00:00: 00 11-13 00:00 :00 No [id number] 81mg Take 1 tablet by mouth in the morning for 30 days. [facility] tamsulosin (FLOMAX) capsule 0.4 mg 11-13 02:00: 00 Yes .4mg 0.4 mg, Oral, QHS, First dose on Thu11/12/22 at 2100, Until Discontinu ed, Routine [facility] insulin glargine (LANTUS U-100) injection 20 Units 11-13 02:00: 00 Yes 20U 20 Units, Subcutaneo us, QHS, First dose on Thu11/12/22 at 2100, Until Discontinu ed [facility] ciprofloxac in-hydrocor tisone (CIPRO HC OTIC) otic suspension 3 Drop 11-13 01:00: 00 Yes 3[drp] 3 Drop, Left Ear, BID, First dose on Thu11/12/22 at 2000, Until Discontinu ed, Routine [facility] atorvastati n 40 mg tablet 11-13 00:00: 00 11-13 00:00 :00 No [id number] 40mg Take 1 tablet by mouth every evening for 30 days. [facility] Sliding Scale Insulin - Lispro (HumaLOG) 11-12 22:00: 00 Yes Subcutaneo us, TID MEALS+HS, First dose on Thu11/12/22 at 1700, Until Discontinu ed, Routine [facility] atorvastati n (LIPITOR) tablet 40 mg 11-12 22:00: 00 Yes 40mg 40 mg, Oral, QPM, First dose on Thu11/12/22 at 1700, Until Discontinu ed, Routine [facility] acetaminoph en (TYLENOL) tablet 1,000 mg 11-12 20:58: 35 Yes 1000mg 1,000 mg, Oral, Q6HPRN, Starting on Thu11/12/22 at 1558, Until Discontinu ed, Routine, Pain (scale 1-3) [facility] foLIC acid (FOLATE) tablet 1 mg 11-12 19:00: 00 Yes 1mg 1 mg, Oral, DAILY, First dose on Thu11/12/22 at 1400, Until Discontinu ed, Routine [facility] thiamine (VITAMIN B1) tablet 100 mg 11-12 19:00: 00 Yes 100mg 100 mg, Oral, DAILY, First dose on Thu11/12/22 at 1400, Until Discontinu ed, Routine [facility] glucagon (GLUCAGEN DIAGNOSTIC KIT) injection 1 mg 11-12 18:50: 15 Yes 1mg 1 mg, Intramuscu lar, PRN, Starting on Thu11/12/22 at 1350, Until Discontinu ed, SANDI, Blood Glucose < or = 70 mg/dL and patient is NPO, unable to swallow or has mental changes. [facility] dextrose 50 % in water (D50W) injection 25 mL 11-12 18:50: 15 Yes 25mL 25 mL, Slow IV Push, PRN, Starting on Thu11/12/22 at 1350, Until Discontinu ed, SANDI, Blood Glucose < or = 70 mg/dL and patient is NPO, unable to swallow or has mental status changes. [facility] sulfur hexafluorid e microsphr (LUMASON) injection 5 mL 11-12 17:45: 00 11-12 17:45 :00 No [id number] 5mL 5 mL, Intravenou s, ONCE, 1 dose, On Thu11/12/22 at 1245, Routine
membership assistant approving Restricted medication : JADE TO [facility] famotidine (PEPCID AC) tablet 40 mg 11-12 14:00: 00 Yes 40mg 40 mg, Oral, DAILY, First dose on Thu11/12/22 at 0900, Until Discontinu ed, Routine [facility] amLODIPine (NORVASC) tablet 10 mg 11-12 14:00: 00 Yes 10mg 10 mg, Oral, DAILY, First dose on Thu11/12/22 at 0900, Until Discontinu ed, Routine [facility] aspirin chewable tablet 81 mg 11-12 14:00: 00 Yes 81mg 81 mg, Oral, DAILY, First dose on Thu11/12/22 at 0900, Until Discontinu ed, Routine [facility] docusate (COLACE) capsule 100 mg 11-12 14:00: 00 Yes 100mg 100 mg, Oral, DAILY, First dose on Thu11/12/22 at 0900, Until Discontinu ed, Routine [facility] enoxaparin (LOVENOX) injection 40 mg 11-12 14:00: 00 Yes 40mg 40 mg, Subcutaneo us, DAILY, First dose on Thu11/12/22 at 0900, Until Discontinu ed, Routine [facility] pantoprazol e (PROTONIX) EC tablet 40 mg 11-12 13:00: 00 Yes 40mg 40 mg, Oral, BID, First dose on Thu11/12/22 at 0800, Until Discontinu ed, Routine [facility] gabapentin (NEURONTIN) capsule 100 mg 11-12 13:00: 00 Yes 100mg 100 mg, Oral, TID, First dose on Thu11/12/22 at 0800, Until Discontinu ed, Routine [facility] glipiZIDE XL (GLUCOTROL XL) tablet 10 mg 11-12 13:00: 00 11-12 18:51 :24 No 10mg 10 mg, Oral, BID MEALS, First dose on Thu11/12/22 at 0800, Until Discontinu ed, Routine [facility] metoprolol tartrate (LOPRESSOR) tablet 12.5 mg 11-12 13:00: 00 11-12 18:22 :50 No 12.5mg 12.5 mg, Oral, BID, First dose on Thu11/12/22 at 0800, Until Discontinu ed, Routine [facility] NaCl 0.9% (NS) IV infusion 1,000 mL 11-12 07:45: 00 11-12 14:43 :40 No 1000mL at 125 mL/hr, IV Infusion, CONTINUOUS , Starting on Thu11/12/22 at 0245, Until Thu11/12/22 at 0943, Routine [facility] HYDROcodone -acetaminop hen (NORCO) 10-325 mg tablet 1 tablet 11-12 07:42: 50 Yes 1{tbl} 1 tablet, Oral, Q6HPRN, Starting on Thu11/12/22 at 0242, Until Discontinu ed, Routine, Pain (scale 4-6), Pain (scale 7-10) [facility] cyclobenzap rine (FLEXERIL) tablet 10 mg 11-12 07:42: 17 Yes 10mg 10 mg, Oral, TIDPRN, Starting on Thu11/12/22 at 0242, Until Discontinu ed, Routine, Muscle Spasms [facility] albuterol (VENTOLIN) inhaler 2 Puff 11-12 07:41: 53 Yes 2{puff} 2 Puff, Inhalation , Q6HPRN, Starting on Thu11/12/22 at 0241, Until Discontinu ed, Routine, Wheezing, Shortness of Breath [facility] NaCl 0.9% (NS) IV infusion 1,000 mL 11-12 05:00: 00 11-12 07:41 :34 No 1000mL at 100 mL/hr, IV Infusion, CONTINUOUS , Starting on Thu11/12/22 at 0000, Until Thu11/12/22 at 0241, Routine [facility] ondansetron (ZOFRAN (PF)) injection 4 mg 11-12 04:54: 45 Yes 4mg 4 mg, Slow IV Push, Q6HPRN, Starting on Thu11/11/22 at 2354, Until Discontinu ed, Routine, Nausea and Vomiting (N/V) [facility] iopamidol (ISOVUE 370-500 mL) injection 100 mL 11-12 04:45: 00 11-12 03:52 :00 No [id number] 100mL 100 mL, Intravenou s, ONCE, 1 dose, On Thu11/11/22 at 2345, Routine [facility] insulin degludec (TRESIBA FLEXTOUCH U-100) 100 unit/mL (3 mL) InPn 10-10 00:00: 00 05-14 00:00 :00 No [id number] 20U inject 20 Units under the skin every morning. [facility] dulaglutide (TRULICITY) 0.75 mg/0.5 mL PnIj 10-10 00:00: 00 12-19 00:00 :00 No [id number] .75mg inject 1 Pen under the skin weekly. [facility] tirzepatide (MOUNJARO) 5 mg/0.5 mL PnIj 10-06 00:00: 00 10-10 00:00 :00 No [id number] 5mg inject 5 mg under the skin weekly. [facility] FENTanyl PF (SUBLIMAZE (PF)) injection 50 mcg 10-05 20:00: 00 10-05 19:34 :00 No 50ug 50 mcg, Intramuscu lar, ONCE, 1 dose, On 10/05/22 at 1500, Routine [facility] dexamethaso ne sod phos PF injection 10 mg 10-05 19:15: 00 10-05 19:34 :00 No 10mg 10 mg, Intramuscu lar, ONCE, 1 dose, On 10/05/22 at 1415, 1 mL [facility] diazePAM (VALIUM) tablet 5 mg 10-05 19:15: 00 10-05 19:34 :00 No 5mg 5 mg, Oral, ONCE, 1 dose, On 10/05/22 at 1415, SANDI [facility] ciprofloxac in-dexameth asone (CIPRODEX) 0.3-0.1 % otic drops 10-05 00:00: 00 12-19 00:00 :00 No [id number] 3[drp] Place 3 Drops in left ear in the morning and 3 Drops in the evening. [facility] cyclobenzap rine 10 mg tablet 10-05 00:00: 00 12-19 00:00 :00 No [id number] 10mg Take 1 tablet by mouth 3 (three) times daily as needed for Muscle Spasms. [facility] pioglitazon e 30 mg tablet 09-30 00:00: 00 06-28 00:00 :00 No [id number] 30mg Take 1 tablet by mouth in the morning. [facility] metformin ER 500 mg 24 hr tablet 09-30 00:00: 00 06-23 00:00 :00 No [id number] TAKE 2 TABLETS BY MOUTH TWICE DAILY WITH MEALS [facility] glipiZIDE XL 10 mg 24 hr tablet 09-30 00:00: 00 04-13 00:00 :00 No [id number] 10mg Take 1 tablet by mouth in the morning and 1 tablet in the evening. Take with meals. [facility] lisinopriL 40 mg tablet 09-30 00:00: 00 11-13 00:00 :00 No [id number] 40mg Take 1 tablet by mouth in the morning. [facility] insulin degludec (TRESIBA FLEXTOUCH U-100) 100 unit/mL (3 mL) In 09-30 00:00: 00 10-10 00:00 :00 No [id number] 20U inject 20 Units under the skin every morning. [facility] tirzepatide (MOUNJARO) 5 mg/0.5 mL PnIj 09-30 00:00: 00 10-06 00:00 :00 No [id number] 5mg inject 5 mg under the skin weekly. [facility] dulaglutide (TRULICITY) 3 mg/0.5 mL PnIj 3-28 00:00: 00 09-30 00:00 :00 No [id number] 3mg inject 1 Pen under the skin weekly. [facility] dulaglutide (TRULICITY) 1.5 mg/0.5 mL PnIj -07 00:00: 00 Yes [id number] 1.5mg inject 1 Pen under the skin weekly. [facility] insulin degludec (TRESIBA FLEXTOUCH U-100) 100 unit/mL (3 mL) In 2-27 00:00: 00 09-30 00:00 :00 No [id number] 20U inject 20 Units under the skin every morning. [facility] tirzepatide (MOUNJARO) 5 mg/0.5 mL PnIj 2-06 00:00: 00 07-01 00:00 :00 No [id number] 5mg inject 5 mg under the skin weekly. Dx E11.65 [facility] Blood-Gluco se Meter [facility] 2021-04 00:00: 00 Yes [id number] Use daily. Dx E11.65 [facility] blood sugar diagnostic (BLOOD GLUCOSE TEST) strip 2021-04 00:00: 00 Yes [id number] Use daily. Dx E11.65 [facility] lancets 30 gauge [facility] 2021-04 00:00: 00 08-31 00:00 :00 No [id number] Use daily. Dx E11.65 [facility] Blood-Gluco se Meter [facility] 2021-04 00:00: 00 08-31 00:00 :00 No [id number] Use daily. Dx E11.65 [facility] blood sugar diagnostic (BLOOD GLUCOSE TEST) strip 2021-04 00:00: 00 08-31 00:00 :00 No [id number] Use daily. Dx E11.65 [facility] lancets 30 gauge [facility] 2021-04 00:00: 00 08-31 00:00 :00 No [id number] Use daily. Dx E11.65 [facility] lisinopriL 40 mg tablet 2021-04 00:00: 00 09-30 00:00 :00 No [id number] 40mg Take 1 tablet by mouth in the morning. [facility] metformin ER 500 mg 24 hr tablet 2021-04 00:00: 00 09-30 00:00 :00 No [id number] TAKE 2 TABLETS BY MOUTH TWICE DAILY WITH MEALS [facility] pioglitazon e 30 mg tablet 2021-04 00:00: 00 09-30 00:00 :00 No [id number] 30mg Take 1 tablet by mouth in the morning. [facility] glipiZIDE XL 10 mg 24 hr tablet 2021-04 00:00: 00 09-30 00:00 :00 No [id number] 10mg Take 1 tablet by mouth in the morning and 1 tablet in the evening. Take with meals. [facility] degludec (TRESIBA FLEXTOUCH U-100) 100 unit/mL (3 mL) InPn 2021-04 00:00: 00 06-23 00:00 :00 No [id number] 20U inject 20 Units under the skin every morning. [facility] tirzepatide (MOUNJARO) 5 mg/0.5 mL PnIj 2021-04 00:00: 00 06-02 00:00 :00 No [id number] 5mg inject 5 mg under the skin weekly. [facility] tirzepatide (MOUNJARO) 7.5 mg/0.5 mL PnIj 2021-04 00:00: 00 03-28 00:00 :00 No 7.5mg inject 7.5 mg under the skin weekly. [facility] albuterol 90 mcg/actuati on inhaler 2021-04 00:00: 00 12-19 00:00 :00 No [id number] 2{puff} Inhale 2 Puffs every 6 (six) hours as needed for Wheezing or Shortness of Breath. [facility] tirzepatide (MOUNJARO) 5 mg/0.5 mL Ij 2021-04 00:00: 00 03-26 00:00 :00 No 5mg inject 5 mg under the skin weekly. [facility] ALPRAZolam 2 mg tablet 2021-04 00:00: 00 Yes 2mg Take 1 tablet by mouth as needed. [facility] famotidine 40 mg tablet 2021-04 00:00: 00 10-22 00:00 :00 No [facility] GABAPENTIN 100 mg capsule 2021-04 00:00: 00 12-19 00:00 :00 No [id number] TAKE ONE CAPSULE BY MOUTH THREE TIMES A DAY (MORNING, NOON AND EVENING) [facility] tirzepatide (MOUNJARO) 2.5 mg/0.5 mL PnIj 2021-04 0-12 00:00: 00 02-17 00:00 :00 No [id number] 2.5mg Inject 2.5 mg as directed weekly. [facility] ciprofloxac in-dexameth asone (CIPRODEX) 0.3-0.1 % otic drops -14 00:00: 00 10-05 00:00 :00 No [id number] 3[drp] Place 3 Drops in left ear in the morning and 3 Drops in the evening. [facility] semaglutide (OZEMPIC) 1 mg/dose (4 mg/3 mL) [facility] 01-07 00:00: 00 01-07 00:00 :00 No [id number] 1mg inject 1 mg under the skin weekly. [facility] dulaglutide (TRULICITY) 3 mg/0.5 mL [facility] 12-04 00:00: 00 01-07 00:00 :00 No [id number] 3mg inject 1 Pen under the skin weekly. [facility] lisinopriL 40 mg tablet 11-15 00:00: 00 Yes [id number] 40mg Take 1 tablet by mouth in the morning and 1 tablet in the evening. [facility] glipiZIDE XL 10 mg 24 hr tablet 11-15 00:00: 00 03-28 00:00 :00 No [id number] 10mg Take 1 tablet by mouth in the morning and 1 tablet in the evening. Take with meals. [facility] insulin degludec (TRESIBA FLEXTOUCH U-100) 100 unit/mL (3 mL) InPn 11-15 00:00: 00 03-28 00:00 :00 No [id number] 24U inject 24 Units under the skin every morning. [facility] pioglitazon e 30 mg tablet 11-15 00:00: 00 03-28 00:00 :00 No [id number] 30mg Take 1 tablet by mouth in the morning. [facility] metformin ER 500 mg 24 hr tablet 11-15 00:00: 00 03-28 00:00 :00 No [id number] TAKE 2 TABLETS BY MOUTH TWICE DAILY WITH MEALS [facility] gabapentin 100 mg capsule 11-15 00:00: 00 02-25 00:00 :00 No [id number] 100mg Take 1 capsule by mouth in the morning and 1 capsule at noon and 1 capsule in the evening. [facility] Insulin [place], Disposable, (PEN NEEDLE) 31 gauge x 5/16" [facility] 2020-04 00:00: 00 Yes [id number] Use as directed once a day [facility] Insulin [place], Disposable, (PEN NEEDLE) 31 gauge x 5/16" Ndle 2020-04 00:00: 00 05-13 00:00 :00 No [id number] Use as directed once a day [facility] albuterol 90 mcg/actuati on inhaler 01-20 00:00: 00 12-19 00:00 :00 No INHALE 1 PUFF BY MOUTH EVERY 4 TO 6 HOURS [facility] HYDROcodone -acetaminop hen 10-325 mg tablet 01-01 00:00: 00 Yes 1{tbl} 1 tablet every 8 (eight) hours as needed. [facility] omeprazole 40 mg capsule 8-11 00:00: 00 12-19 00:00 :00 No 40mg Take 40 mg by mouth 2 (two) times daily. [facility] testosteron e cypionate 200 mg/mL injection 8-04 00:00: 00 09-30 00:00 :00 No INJECT 1 ML INTRAMUSCU LARLY ONCE A WEEK [facility] hydroCHLORO thiazide 25 mg tablet 7-05 00:00: 00 11-13 00:00 :00 No [id number] 25mg Take 1 tablet by mouth daily. [facility] pantoprazol e 40 mg EC tablet 2021-0 4-12 00:00: 00 11-13 00:00 :00 No [id number] 40mg Take 1 tablet by mouth 2 (two) times daily. [facility] amLODIPine 10 mg tablet 4-05 00:00: 00 Yes [id number] 10mg Take 1 tablet by mouth daily. Appointmen t needed for further refills. Please contact office. [facility] Blood-Gluco se Meter (RELION ALL-IN-ONE METER) Kit 327 00:00: 00 03-28 00:00 :00 No [id number] Check glucose 3 times daily before meals [facility] pantoprazol e 40 mg EC tablet 2-24 00:00: 00 11-13 00:00 :00 No [id number] 40mg Take 1 tablet by mouth 2 (two) times daily. [facility] methocarbam oL 500 mg tablet 2019-04 0-14 00:00: 00 11-13 00:00 :00 No [id number] 500mg Take 1 tablet by mouth 4 (four) times daily. [facility] tamsulosin 0.4 mg 24 hr capsule 2019-04 0 00:00: 00 Yes [id number] .4mg Take 1 capsule by mouth at bedtime. [facility] peg-electro lyte soln 236-22.74-6 .74 -5.86 gram solution 6 00:00: 00 11-13 00:00 :00 No Take as Directed [facility] testosteron e enanthate (XYOSTED) 75 mg/0.5 mL AtIn 08-21 00:00: 00 09-30 00:00 :00 No [id number] 75mg inject 75 mg under the skin weekly. Indication s: needlephob ia [facility] syringe-nee dle,safety, disp unt 1.5 mL 22 gauge x 1 1/2" Syrg 8-06 00:00: 00 Yes [id number] Use as directed with testostero ne injection once [id number] [facility] syringe-nee dle,safety, disp unt 1.5 mL 22 gauge x 1 1/2" Syrg 8-06 00:00: 00 12-03 00:00 :00 No [id number] Use as directed with testostero ne injection once S2efdeu [facility] blood sugar diagnostic (ACCU-CHEK GUIDE) strip 12-08 00:00: 00 03-28 00:00 :00 No Use as directed, TID, DX:E11.9 [facility] Lancets (ACCU-CHEK FASTCLIX) Misc 12-08 00:00: 00 03-28 00:00 :00 No Use as directed, TID, DX:E11.9 [facility] Immunizations Ordered Immunization Name Filled Immunization Name Date Status Comments Source Flu Injectable MDCK Pres-Free (FLUCELVAX) 2024-02-02 00:00:00 Completed [facility] Influenza Virus Vaccine Quad IM, Preserv and ABX Free 6 MO-64 YRS 2021-07-16 00:00:00 Completed [facility] Influenza Virus Vaccine Quad IM, Preserv and ABX Free 6 MO-64 YRS 2021-07-16 00:00:00 Completed [facility] Influenza Virus Vaccine Quad IM, Preserv and ABX Free 6 MO-64 YRS 2021-07-16 00:00:00 Completed [facility] Influenza Virus Vaccine Quad IM, Preserv and ABX Free 6 MO-64 YRS 2021-07-16 00:00:00 Completed [facility] Influenza Virus Vaccine Quad IM, Preserv and ABX Free 6 MO-64 YRS 2021-07-16 00:00:00 Completed [facility] Influenza Virus Vaccine Quad IM, Preserv and ABX Free 6 MO-64 YRS 2021-07-16 00:00:00 Completed [facility] Influenza Virus Vaccine Quad IM, Preserv and ABX Free 6 MO-64 YRS 2021-07-16 00:00:00 Completed [facility] Influenza Virus Vaccine Quad IM, Preserv and ABX Free 6 MO-64 YRS 2021-07-16 00:00:00 Completed [facility] Influenza Virus Vaccine Quad IM, Preserv and ABX Free 6 MO-64 YRS 2021-07-16 00:00:00 Completed [facility] Influenza Virus Vaccine Quad IM, Preserv and ABX Free 6 MO-64 YRS 2021-07-16 00:00:00 Completed [facility] Influenza Virus Vaccine Quad IM, Preserv and ABX Free 6 MO-64 YRS 2021-07-16 00:00:00 Completed [facility] Influenza Virus Vaccine Quad IM, Preserv and ABX Free 6 MO-64 YRS 2021-07-16 00:00:00 Completed [facility] Influenza Virus Vaccine Quad IM, Preserv and ABX Free 6 MO-64 YRS 2021-07-16 00:00:00 Completed [facility] Influenza Virus Vaccine Quad IM, Preserv and ABX Free 6 MO-64 YRS 2021-07-16 00:00:00 Completed [facility] Influenza Virus Vaccine Quad IM, Preserv and ABX Free 6 MO-64 YRS 2021-07-16 00:00:00 Completed [facility] Influenza Virus Vaccine Quad IM, Preserv and ABX Free 6 MO-64 YRS 2021-07-16 00:00:00 Completed [facility] Influenza Virus Vaccine Quad IM, Preserv and ABX Free 6 MO-64 YRS 2021-07-16 00:00:00 Completed [facility] Influenza Virus Vaccine Quad IM, Preserv and ABX Free 6 MO-64 YRS 2021-07-16 00:00:00 Completed [facility] Influenza Virus Vaccine Quad IM, Preserv and ABX Free 6 MO-64 YRS 2021-07-16 00:00:00 Completed [facility] Influenza Virus Vaccine Quad IM, Preserv and ABX Free 6 MO-64 YRS 2021-07-16 00:00:00 Completed [facility] Influenza Virus Vaccine Quad IM, Preserv and ABX Free 6 MO-64 YRS 2021-07-16 00:00:00 Completed [facility] Influenza Virus Vaccine Quad IM, Preserv and ABX Free 6 MO-64 YRS 2021-07-16 00:00:00 Completed [facility] Influenza Virus Vaccine Quad IM, Preserv and ABX Free 6 MO-64 YRS 2021-07-16 00:00:00 Completed [facility] Influenza Virus Vaccine Quad IM, Preserv and ABX Free 6 MO-64 YRS 2021-07-16 00:00:00 Completed [facility] Influenza Virus Vaccine Quad IM, Preserv and ABX Free 6 MO-64 YRS 2021-07-16 00:00:00 Completed [facility] Influenza Virus Vaccine Quad IM, Preserv and ABX Free 6 MO-64 YRS 2021-07-16 00:00:00 Completed [facility] Influenza Virus Vaccine Quad IM, Preserv and ABX Free 6 MO-64 YRS 2021-07-16 00:00:00 Completed [facility] Influenza Virus Vaccine Quad IM, Preserv and ABX Free 6 MO-64 YRS 2021-07-16 00:00:00 Completed [facility] Influenza Virus Vaccine Quad IM, Preserv and ABX Free 6 MO-64 YRS 2021-07-16 00:00:00 Completed [facility] Influenza Virus Vaccine Quad IM, Preserv and ABX Free 6 MO-64 YRS 2021-07-16 00:00:00 Completed [facility] Influenza Virus Vaccine Quad IM, Preserv and ABX Free 6 MO-64 YRS 2021-07-16 00:00:00 Completed [facility] Influenza Virus Vaccine Quad IM, Preserv and ABX Free 6 MO-64 YRS 2021-07-16 00:00:00 Completed [facility] Influenza Virus Vaccine Quad IM, Preserv and ABX Free 6 MO-64 YRS 2021-07-16 00:00:00 Completed [facility] Influenza Virus Vaccine Quad IM, Preserv and ABX Free 6 MO-64 YRS 2021-07-16 00:00:00 Completed [facility] Influenza Virus Vaccine Quad IM, Preserv and ABX Free 6 MO-64 YRS 2021-07-16 00:00:00 Completed [facility] Influenza Virus Vaccine Quad IM, Preserv and ABX Free 6 MO-64 YRS 2021-07-16 00:00:00 Completed [facility] Influenza Virus Vaccine Quad IM, Preserv and ABX Free 6 MO-64 YRS 2021-07-16 00:00:00 Completed [facility] Influenza Virus Vaccine Quad IM, Preserv and ABX Free 6 MO-64 YRS 2021-07-16 00:00:00 Completed [facility] Influenza Virus Vaccine Quad IM, Preserv and ABX Free 6 MO-64 YRS 2021-07-16 00:00:00 Completed [facility] Influenza Virus Vaccine Quad IM, Preserv and ABX Free 6 MO-64 YRS 2021-07-16 00:00:00 Completed [facility] Influenza Virus Vaccine Quad IM, Preserv and ABX Free 6 MO-64 YRS (FLUCELVAX) 2021-07-16 00:00:00 Completed [facility] Influenza Virus Vaccine Quad IM, Preserv and ABX Free 6 MO-64 YRS (FLUCELVAX) 2021-07-16 00:00:00 Completed [facility] Influenza Virus Vaccine Quad .5 mL IM 6+ MO 2019-12-19 00:00:00 Completed [facility] Influenza Virus Vaccine Quad .5 mL IM 6+ MO 2019-12-19 00:00:00 Completed [facility] Influenza Virus Vaccine Quad .5 mL IM 6+ MO 2019-12-19 00:00:00 Completed [facility] Influenza Virus Vaccine Quad .5 mL IM 6+ MO 2019-12-19 00:00:00 Completed [facility] Influenza Virus Vaccine Quad .5 mL IM 6+ MO 2019-12-19 00:00:00 Completed [facility] Influenza Virus Vaccine Quad .5 mL IM 6+ MO 2019-12-19 00:00:00 Completed [facility] Influenza Virus Vaccine Quad .5 mL IM 6+ MO 2019-12-19 00:00:00 Completed [facility] Influenza Virus Vaccine Quad .5 mL IM 6+ MO 2019-12-19 00:00:00 Completed [facility] Influenza Virus Vaccine Quad .5 mL IM 6+ MO 2019-12-19 00:00:00 Completed [facility] Influenza Virus Vaccine Quad .5 mL IM 6+ MO 2019-12-19 00:00:00 Completed [facility] Influenza Virus Vaccine Quad .5 mL IM 6+ MO 2019-12-19 00:00:00 Completed [facility] Influenza Virus Vaccine Quad .5 mL IM 6+ MO 2019-12-19 00:00:00 Completed [facility] Influenza Virus Vaccine Quad .5 mL IM 6+ MO 2019-12-19 00:00:00 Completed [facility] Influenza Virus Vaccine Quad .5 mL IM 6+ MO 2019-12-19 00:00:00 Completed [facility] Influenza Virus Vaccine Quad .5 mL IM 6+ MO 2019-12-19 00:00:00 Completed [facility] Influenza Virus Vaccine Quad .5 mL IM 6+ MO 2019-12-19 00:00:00 Completed [facility] Influenza Virus Vaccine Quad .5 mL IM 6+ MO 2019-12-19 00:00:00 Completed [facility] Influenza Virus Vaccine Quad .5 mL IM 6+ MO 2019-12-19 00:00:00 Completed [facility] Influenza Virus Vaccine Quad .5 mL IM 6+ MO 2019-12-19 00:00:00 Completed [facility] Influenza Virus Vaccine Quad .5 mL IM 6+ MO 2019-12-19 00:00:00 Completed [facility] Influenza Virus Vaccine Quad .5 mL IM 6+ MO 2019-12-19 00:00:00 Completed [facility] Influenza Virus Vaccine Quad .5 mL IM 6+ MO 2019-12-19 00:00:00 Completed [facility] Influenza Virus Vaccine Quad .5 mL IM 6+ MO 2019-12-19 00:00:00 Completed [facility] Influenza Virus Vaccine Quad .5 mL IM 6+ MO 2019-12-19 00:00:00 Completed [facility] Influenza Virus Vaccine Quad .5 mL IM 6+ MO 2019-12-19 00:00:00 Completed [facility] Influenza Virus Vaccine Quad .5 mL IM 6+ MO 2019-12-19 00:00:00 Completed [facility] Influenza Virus Vaccine Quad .5 mL IM 6+ MO 2019-12-19 00:00:00 Completed [facility] Influenza Virus Vaccine Quad .5 mL IM 6+ MO 2019-12-19 00:00:00 Completed [facility] Influenza Virus Vaccine Quad .5 mL IM 6+ MO 2019-12-19 00:00:00 Completed [facility] Influenza Virus Vaccine Quad .5 mL IM 6+ MO 2019-12-19 00:00:00 Completed [facility] Influenza Virus Vaccine Quad .5 mL IM 6+ MO 2019-12-19 00:00:00 Completed [facility] Influenza Virus Vaccine Quad .5 mL IM 6+ MO 2019-12-19 00:00:00 Completed [facility] Influenza Virus Vaccine Quad .5 mL IM 6+ MO 2019-12-19 00:00:00 Completed [facility] Influenza Virus Vaccine Quad .5 mL IM 6+ MO 2019-12-19 00:00:00 Completed [facility] Influenza Virus Vaccine Quad .5 mL IM 6+ MO 2019-12-19 00:00:00 Completed [facility] Influenza Virus Vaccine Quad .5 mL IM 6+ MO 2019-12-19 00:00:00 Completed [facility] Influenza Virus Vaccine Quad .5 mL IM 6+ MO 2019-12-19 00:00:00 Completed [facility] Influenza Virus Vaccine Quad .5 mL IM 6+ MO 2019-12-19 00:00:00 Completed [facility] Influenza Virus Vaccine Quad .5 mL IM 6+ MO 2019-12-19 00:00:00 Completed [facility] Influenza Virus Vaccine Quad .5 mL IM 6+ MO 2019-12-19 00:00:00 Completed [facility] Influenza Virus Vaccine Quad .5 mL IM 6+ MO (FLUZONE/FLULAVAL/F LUARIX) 2019-12-19 00:00:00 Completed [facility] Influenza Virus Vaccine Quad .5 mL IM 6+ MO (FLUZONE/FLULAVAL/F LUARIX) 2019-12-19 00:00:00 Completed HEPLISAV HEP B, ADULT 2 DOSE, IM 2019-01-24 00:00:00 Completed [facility] Influenza Virus Vaccine 2019-01-24 00:00:00 Completed [facility] HEPLISAV HEP B, ADULT 2 DOSE, IM 2019-01-24 00:00:00 Completed [facility] Influenza Virus Vaccine 2019-01-24 00:00:00 Completed [facility] HEPLISAV HEP B, ADULT 2 DOSE, IM 2019-01-24 00:00:00 Completed [facility] Influenza Virus Vaccine 2019-01-24 00:00:00 Completed [facility] HEPLISAV HEP B, ADULT 2 DOSE, IM 2019-01-24 00:00:00 Completed [facility] Influenza Virus Vaccine 2019-01-24 00:00:00 Completed [facility] HEPLISAV HEP B, ADULT 2 DOSE, IM 2019-01-24 00:00:00 Completed [facility] Influenza Virus Vaccine 2019-01-24 00:00:00 Completed [facility] HEPLISAV HEP B, ADULT 2 DOSE, IM 2019-01-24 00:00:00 Completed [facility] Influenza Virus Vaccine 2019-01-24 00:00:00 Completed [facility] HEPLISAV HEP B, ADULT 2 DOSE, IM 2019-01-24 00:00:00 Completed [facility] Influenza Virus Vaccine 2019-01-24 00:00:00 Completed [facility] HEPLISAV HEP B, ADULT 2 DOSE, IM 2019-01-24 00:00:00 Completed [facility] Influenza Virus Vaccine 2019-01-24 00:00:00 Completed [facility] HEPLISAV HEP B, ADULT 2 DOSE, IM 2019-01-24 00:00:00 Completed [facility] Influenza Virus Vaccine 2019-01-24 00:00:00 Completed [facility] HEPLISAV HEP B, ADULT 2 DOSE, IM 2019-01-24 00:00:00 Completed [facility] Influenza Virus Vaccine 2019-01-24 00:00:00 Completed [facility] HEPLISAV HEP B, ADULT 2 DOSE, IM 2019-01-24 00:00:00 Completed [facility] Influenza Virus Vaccine 2019-01-24 00:00:00 Completed [facility] HEPLISAV HEP B, ADULT 2 DOSE, IM 2019-01-24 00:00:00 Completed [facility] Influenza Virus Vaccine 2019-01-24 00:00:00 Completed [facility] HEPLISAV HEP B, ADULT 2 DOSE, IM 2019-01-24 00:00:00 Completed [facility] Influenza Virus Vaccine 2019-01-24 00:00:00 Completed [facility] HEPLISAV HEP B, ADULT 2 DOSE, IM 2019-01-24 00:00:00 Completed [facility] Influenza Virus Vaccine 2019-01-24 00:00:00 Completed [facility] HEPLISAV HEP B, ADULT 2 DOSE, IM 2019-01-24 00:00:00 Completed [facility] Influenza Virus Vaccine 2019-01-24 00:00:00 Completed [facility] HEPLISAV HEP B, ADULT 2 DOSE, IM 2019-01-24 00:00:00 Completed [facility] Influenza Virus Vaccine 2019-01-24 00:00:00 Completed [facility] HEPLISAV HEP B, ADULT 2 DOSE, IM 2019-01-24 00:00:00 Completed [facility] Influenza Virus Vaccine 2019-01-24 00:00:00 Completed [facility] HEPLISAV HEP B, ADULT 2 DOSE, IM 2019-01-24 00:00:00 Completed [facility] Influenza Virus Vaccine 2019-01-24 00:00:00 Completed [facility] HEPLISAV HEP B, ADULT 2 DOSE, IM 2019-01-24 00:00:00 Completed [facility] Influenza Virus Vaccine 2019-01-24 00:00:00 Completed [facility] HEPLISAV HEP B, ADULT 2 DOSE, IM 2019-01-24 00:00:00 Completed [facility] Influenza Virus Vaccine 2019-01-24 00:00:00 Completed [facility] HEPLISAV HEP B, ADULT 2 DOSE, IM 2019-01-24 00:00:00 Completed [facility] Influenza Virus Vaccine 2019-01-24 00:00:00 Completed [facility] HEPLISAV HEP B, ADULT 2 DOSE, IM 2019-01-24 00:00:00 Completed [facility] Influenza Virus Vaccine 2019-01-24 00:00:00 Completed [facility] HEPLISAV HEP B, ADULT 2 DOSE, IM 2019-01-24 00:00:00 Completed [facility] Influenza Virus Vaccine 2019-01-24 00:00:00 Completed [facility] HEPLISAV HEP B, ADULT 2 DOSE, IM 2019-01-24 00:00:00 Completed [facility] Influenza Virus Vaccine 2019-01-24 00:00:00 Completed [facility] HEPLISAV HEP B, ADULT 2 DOSE, IM 2019-01-24 00:00:00 Completed [facility] Influenza Virus Vaccine 2019-01-24 00:00:00 Completed [facility] HEPLISAV HEP B, ADULT 2 DOSE, IM 2019-01-24 00:00:00 Completed [facility] Influenza Virus Vaccine 2019-01-24 00:00:00 Completed [facility] HEPLISAV HEP B, ADULT 2 DOSE, IM 2019-01-24 00:00:00 Completed [facility] Influenza Virus Vaccine 2019-01-24 00:00:00 Completed [facility] HEPLISAV HEP B, ADULT 2 DOSE, IM 2019-01-24 00:00:00 Completed [facility] Influenza Virus Vaccine 2019-01-24 00:00:00 Completed [facility] HEPLISAV HEP B, ADULT 2 DOSE, IM 2019-01-24 00:00:00 Completed [facility] Influenza Virus Vaccine 2019-01-24 00:00:00 Completed [facility] HEPLISAV HEP B, ADULT 2 DOSE, IM 2019-01-24 00:00:00 Completed [facility] Influenza Virus Vaccine 2019-01-24 00:00:00 Completed [facility] HEPLISAV HEP B, ADULT 2 DOSE, IM 2019-01-24 00:00:00 Completed [facility] Influenza Virus Vaccine 2019-01-24 00:00:00 Completed [facility] HEPLISAV HEP B, ADULT 2 DOSE, IM 2019-01-24 00:00:00 Completed [facility] Influenza Virus Vaccine 2019-01-24 00:00:00 Completed [facility] HEPLISAV HEP B, ADULT 2 DOSE, IM 2019-01-24 00:00:00 Completed [facility] Influenza Virus Vaccine 2019-01-24 00:00:00 Completed [facility] HEPLISAV HEP B, ADULT 2 DOSE, IM 2019-01-24 00:00:00 Completed [facility] Influenza Virus Vaccine 2019-01-24 00:00:00 Completed [facility] HEPLISAV HEP B, ADULT 2 DOSE, IM 2019-01-24 00:00:00 Completed [facility] Influenza Virus Vaccine 2019-01-24 00:00:00 Completed [facility] HEPLISAV HEP B, ADULT 2 DOSE, IM 2019-01-24 00:00:00 Completed [facility] Influenza Virus Vaccine 2019-01-24 00:00:00 Completed [facility] HEPLISAV HEP B, ADULT 2 DOSE, IM 2019-01-24 00:00:00 Completed [facility] Influenza Virus Vaccine 2019-01-24 00:00:00 Completed [facility] HEPLISAV HEP B, ADULT 2 DOSE, IM 2019-01-24 00:00:00 Completed [facility] Influenza Virus Vaccine 2019-01-24 00:00:00 Completed [facility] HEPLISAV HEP B, ADULT 2 DOSE, IM 2019-01-24 00:00:00 Completed [facility] Influenza Virus Vaccine 2019-01-24 00:00:00 Completed [facility] HEPLISAV HEP B, ADULT 2 DOSE, IM 2019-01-24 00:00:00 Completed [facility] Influenza Virus Vaccine 2019-01-24 00:00:00 Completed [facility] HEPLISAV HEP B, ADULT 2 DOSE, IM 2019-01-24 00:00:00 Completed [facility] Influenza Virus Vaccine 2019-01-24 00:00:00 Completed [facility] HEPLISAV HEP B, ADULT 2 DOSE, IM 2019-01-24 00:00:00 Completed [facility] Influenza Virus Vaccine 2019-01-24 00:00:00 Completed [facility] HEPLISAV HEP B, ADULT 2 DOSE, IM Unknown Completed [facility] Influenza Virus Vaccine Unknown Completed [facility] Influenza Virus Vaccine Quad .5 mL IM 6+ MO (FLUZONE/FLULAVAL/F LUARIX) Unknown Completed [facility] Influenza Virus Vaccine Quad IM, Preserv and ABX Free 6 MO-64 YRS (FLUCELVAX) Unknown Completed [facility] HEPLISAV HEP B, ADULT 2 DOSE, IM Unknown Completed [facility] Influenza Virus Vaccine Unknown Completed [facility] Influenza Virus Vaccine Quad .5 mL IM 6+ MO (FLUZONE/FLULAVAL/F LUARIX) Unknown Completed [facility] Influenza Virus Vaccine Quad IM, Preserv and ABX Free 6 MO-64 YRS (FLUCELVAX) Unknown Completed [facility] HEPLISAV HEP B, ADULT 2 DOSE, IM Unknown Completed [facility] Influenza Virus Vaccine Unknown Completed [facility] Influenza Virus Vaccine Quad .5 mL IM 6+ MO (FLUZONE/FLULAVAL/F LUARIX) Unknown Completed [facility] Influenza Virus Vaccine Quad IM, Preserv and ABX Free 6 MO-64 YRS (FLUCELVAX) Unknown Completed [facility] HEPLISAV HEP B, ADULT 2 DOSE, IM Unknown Completed [facility] Influenza Virus Vaccine Unknown Completed [facility] Influenza Virus Vaccine Quad .5 mL IM 6+ MO (FLUZONE/FLULAVAL/F LUARIX) Unknown Completed [facility] Influenza Virus Vaccine Quad IM, Preserv and ABX Free 6 MO-64 YRS (FLUCELVAX) Unknown Completed [facility] HEPLISAV HEP B, ADULT 2 DOSE, IM Unknown Completed [facility] Influenza Virus Vaccine Unknown Completed [facility] Influenza Virus Vaccine Quad .5 mL IM 6+ MO (FLUZONE/FLULAVAL/F LUARIX) Unknown Completed [facility] Influenza Virus Vaccine Quad IM, Preserv and ABX Free 6 MO-64 YRS (FLUCELVAX) Unknown Completed [facility] HEPLISAV HEP B, ADULT 2 DOSE, IM Unknown Completed [facility] Influenza Virus Vaccine Unknown Completed [facility] Influenza Virus Vaccine Quad .5 mL IM 6+ MO (FLUZONE/FLULAVAL/F LUARIX) Unknown Completed [facility] Influenza Virus Vaccine Quad IM, Preserv and ABX Free 6 MO-64 YRS (FLUCELVAX) Unknown Completed [facility] HEPLISAV HEP B, ADULT 2 DOSE, IM Unknown Completed [facility] Influenza Virus Vaccine Unknown Completed [facility] Influenza Virus Vaccine Quad .5 mL IM 6+ MO (FLUZONE/FLULAVAL/F LUARIX) Unknown Completed [facility] Influenza Virus Vaccine Quad IM, Preserv and ABX Free 6 MO-64 YRS (FLUCELVAX) Unknown Completed [facility] HEPLISAV HEP B, ADULT 2 DOSE, IM Unknown Completed [facility] Influenza Virus Vaccine Unknown Completed [facility] Influenza Virus Vaccine Quad .5 mL IM 6+ MO (FLUZONE/FLULAVAL/F LUARIX) Unknown Completed [facility] Influenza Virus Vaccine Quad IM, Preserv and ABX Free 6 MO-64 YRS (FLUCELVAX) Unknown Completed [facility] HEPLISAV HEP B, ADULT 2 DOSE, IM Unknown Completed [facility] Influenza Virus Vaccine Unknown Completed [facility] Influenza Virus Vaccine Quad .5 mL IM 6+ MO (FLUZONE/FLULAVAL/F LUARIX) Unknown Completed [facility] Influenza Virus Vaccine Quad IM, Preserv and ABX Free 6 MO-64 YRS (FLUCELVAX) Unknown Completed [facility] HEPLISAV HEP B, ADULT 2 DOSE, IM Unknown Completed [facility] Influenza Virus Vaccine Unknown Completed [facility] Influenza Virus Vaccine Quad .5 mL IM 6+ MO (FLUZONE/FLULAVAL/F LUARIX) Unknown Completed [facility] Influenza Virus Vaccine Quad IM, Preserv and ABX Free 6 MO-64 YRS (FLUCELVAX) Unknown Completed [facility] HEPLISAV HEP B, ADULT 2 DOSE, IM Unknown Completed [facility] Influenza Virus Vaccine Unknown Completed [facility] Influenza Virus Vaccine Quad .5 mL IM 6+ MO (FLUZONE/FLULAVAL/F LUARIX) Unknown Completed [facility] Influenza Virus Vaccine Quad IM, Preserv and ABX Free 6 MO-64 YRS (FLUCELVAX) Unknown Completed [facility] HEPLISAV HEP B, ADULT 2 DOSE, IM Unknown Completed [facility] Influenza Virus Vaccine Unknown Completed [facility] Influenza Virus Vaccine Quad .5 mL IM 6+ MO (FLUZONE/FLULAVAL/F LUARIX) Unknown Completed [facility] Influenza Virus Vaccine Quad IM, Preserv and ABX Free 6 MO-64 YRS (FLUCELVAX) Unknown Completed [facility] HEPLISAV HEP B, ADULT 2 DOSE, IM Unknown Completed [facility] Influenza Virus Vaccine Unknown Completed [facility] Influenza Virus Vaccine Quad .5 mL IM 6+ MO (FLUZONE/FLULAVAL/F LUARIX) Unknown Completed [facility] Influenza Virus Vaccine Quad IM, Preserv and ABX Free 6 MO-64 YRS (FLUCELVAX) Unknown Completed [facility] HEPLISAV HEP B, ADULT 2 DOSE, IM Unknown Completed [facility] Influenza Virus Vaccine Unknown Completed [facility] Influenza Virus Vaccine Quad .5 mL IM 6+ MO (FLUZONE/FLULAVAL/F LUARIX) Unknown Completed [facility] Influenza Virus Vaccine Quad IM, Preserv and ABX Free 6 MO-64 YRS (FLUCELVAX) Unknown Completed [facility] HEPLISAV HEP B, ADULT 2 DOSE, IM Unknown Completed [facility] Influenza Virus Vaccine Unknown Completed [facility] Influenza Virus Vaccine Quad .5 mL IM 6+ MO (FLUZONE/FLULAVAL/F LUARIX) Unknown Completed [facility] Influenza Virus Vaccine Quad IM, Preserv and ABX Free 6 MO-64 YRS (FLUCELVAX) Unknown Completed [facility] HEPLISAV HEP B, ADULT 2 DOSE, IM Unknown Completed [facility] Influenza Virus Vaccine Unknown Completed [facility] Influenza Virus Vaccine Quad .5 mL IM 6+ MO (FLUZONE/FLULAVAL/F LUARIX) Unknown Completed [facility] Influenza Virus Vaccine Quad IM, Preserv and ABX Free 6 MO-64 YRS (FLUCELVAX) Unknown Completed [facility] HEPLISAV HEP B, ADULT 2 DOSE, IM Unknown Completed [facility] Influenza Virus Vaccine Unknown Completed [facility] Influenza Virus Vaccine Quad .5 mL IM 6+ MO (FLUZONE/FLULAVAL/F LUARIX) Unknown Completed [facility] Influenza Virus Vaccine Quad IM, Preserv and ABX Free 6 MO-64 YRS (FLUCELVAX) Unknown Completed [facility] HEPLISAV HEP B, ADULT 2 DOSE, IM Unknown Completed [facility] Influenza Virus Vaccine Unknown Completed [facility] Influenza Virus Vaccine Quad .5 mL IM 6+ MO (FLUZONE/FLULAVAL/F LUARIX) Unknown Completed [facility] Influenza Virus Vaccine Quad IM, Preserv and ABX Free 6 MO-64 YRS (FLUCELVAX) Unknown Completed [facility] HEPLISAV HEP B, ADULT 2 DOSE, IM Unknown Completed [facility] Influenza Virus Vaccine Unknown Completed [facility] Influenza Virus Vaccine Quad .5 mL IM 6+ MO (FLUZONE/FLULAVAL/F LUARIX) Unknown Completed [facility] Influenza Virus Vaccine Quad IM, Preserv and ABX Free 6 MO-64 YRS (FLUCELVAX) Unknown Completed [facility] HEPLISAV HEP B, ADULT 2 DOSE, IM Unknown Completed [facility] Influenza Virus Vaccine Unknown Completed [facility] Influenza Virus Vaccine Quad .5 mL IM 6+ MO (FLUZONE/FLULAVAL/F LUARIX) Unknown Completed [facility] Influenza Virus Vaccine Quad IM, Preserv and ABX Free 6 MO-64 YRS (FLUCELVAX) Unknown Completed [facility] HEPLISAV HEP B, ADULT 2 DOSE, IM Unknown Completed [facility] Influenza Virus Vaccine Unknown Completed [facility] Influenza Virus Vaccine Quad .5 mL IM 6+ MO (FLUZONE/FLULAVAL/F LUARIX) Unknown Completed [facility] Influenza Virus Vaccine Quad IM, Preserv and ABX Free 6 MO-64 YRS (FLUCELVAX) Unknown Completed [facility] HEPLISAV HEP B, ADULT 2 DOSE, IM Unknown Completed [facility] Influenza Virus Vaccine Unknown Completed [facility] Influenza Virus Vaccine Quad .5 mL IM 6+ MO (FLUZONE/FLULAVAL/F LUARIX) Unknown Completed [facility] Influenza Virus Vaccine Quad IM, Preserv and ABX Free 6 MO-64 YRS (FLUCELVAX) Unknown Completed [facility] HEPLISAV HEP B, ADULT 2 DOSE, IM Unknown Completed [facility] Influenza Virus Vaccine Unknown Completed [facility] Influenza Virus Vaccine Quad .5 mL IM 6+ MO (FLUZONE/FLULAVAL/F LUARIX) Unknown Completed [facility] Influenza Virus Vaccine Quad IM, Preserv and ABX Free 6 MO-64 YRS (FLUCELVAX) Unknown Completed [facility] HEPLISAV HEP B, ADULT 2 DOSE, IM Unknown Completed [facility] Influenza Virus Vaccine Unknown Completed [facility] Influenza Virus Vaccine Quad .5 mL IM 6+ MO (FLUZONE/FLULAVAL/F LUARIX) Unknown Completed [facility] Influenza Virus Vaccine Quad IM, Preserv and ABX Free 6 MO-64 YRS (FLUCELVAX) Unknown Completed [facility] HEPLISAV HEP B, ADULT 2 DOSE, IM Unknown Completed [facility] Influenza Virus Vaccine Unknown Completed [facility] Influenza Virus Vaccine Quad .5 mL IM 6+ MO (FLUZONE/FLULAVAL/F LUARIX) Unknown Completed [facility] Influenza Virus Vaccine Quad IM, Preserv and ABX Free 6 MO-64 YRS (FLUCELVAX) Unknown Completed [facility] HEPLISAV HEP B, ADULT 2 DOSE, IM Unknown Completed [facility] Influenza Virus Vaccine Unknown Completed [facility] Influenza Virus Vaccine Quad .5 mL IM 6+ MO (FLUZONE/FLULAVAL/F LUARIX) Unknown Completed [facility] Influenza Virus Vaccine Quad IM, Preserv and ABX Free 6 MO-64 YRS (FLUCELVAX) Unknown Completed [facility] HEPLISAV HEP B, ADULT 2 DOSE, IM Unknown Completed [facility] Influenza Virus Vaccine Unknown Completed [facility] Influenza Virus Vaccine Quad .5 mL IM 6+ MO (FLUZONE/FLULAVAL/F LUARIX) Unknown Completed [facility] Influenza Virus Vaccine Quad IM, Preserv and ABX Free 6 MO-64 YRS (FLUCELVAX) Unknown Completed [facility] HEPLISAV HEP B, ADULT 2 DOSE, IM Unknown Completed [facility] Influenza Virus Vaccine Unknown Completed [facility] Influenza Virus Vaccine Quad .5 mL IM 6+ MO (FLUZONE/FLULAVAL/F LUARIX) Unknown Completed [facility] Influenza Virus Vaccine Quad IM, Preserv and ABX Free 6 MO-64 YRS (FLUCELVAX) Unknown Completed [facility] HEPLISAV HEP B, ADULT 2 DOSE, IM Unknown Completed [facility] Influenza Virus Vaccine Unknown Completed [facility] Influenza Virus Vaccine Quad .5 mL IM 6+ MO (FLUZONE/FLULAVAL/F LUARIX) Unknown Completed [facility] Influenza Virus Vaccine Quad IM, Preserv and ABX Free 6 MO-64 YRS (FLUCELVAX) Unknown Completed [facility] HEPLISAV HEP B, ADULT 2 DOSE, IM Unknown Completed [facility] Influenza Virus Vaccine Unknown Completed [facility] Influenza Virus Vaccine Quad .5 mL IM 6+ MO (FLUZONE/FLULAVAL/F LUARIX) Unknown Completed [facility] Influenza Virus Vaccine Quad IM, Preserv and ABX Free 6 MO-64 YRS (FLUCELVAX) Unknown Completed [facility] HEPLISAV HEP B, ADULT 2 DOSE, IM Unknown Completed [facility] Influenza Virus Vaccine Unknown Completed [facility] Influenza Virus Vaccine Quad .5 mL IM 6+ MO (FLUZONE/FLULAVAL/F LUARIX) Unknown Completed [facility] Influenza Virus Vaccine Quad IM, Preserv and ABX Free 6 MO-64 YRS (FLUCELVAX) Unknown Completed [facility] HEPLISAV HEP B, ADULT 2 DOSE, IM Unknown Completed [facility] Influenza Virus Vaccine Unknown Completed [facility] Influenza Virus Vaccine Quad .5 mL IM 6+ MO (FLUZONE/FLULAVAL/F LUARIX) Unknown Completed [facility] Influenza Virus Vaccine Quad IM, Preserv and ABX Free 6 MO-64 YRS (FLUCELVAX) Unknown Completed [facility] HEPLISAV HEP B, ADULT 2 DOSE, IM Unknown Completed [facility] Influenza Virus Vaccine Unknown Completed [facility] Influenza Virus Vaccine Quad .5 mL IM 6+ MO (FLUZONE/FLULAVAL/F LUARIX) Unknown Completed [facility] Influenza Virus Vaccine Quad IM, Preserv and ABX Free 6 MO-64 YRS (FLUCELVAX) Unknown Completed [facility] HEPLISAV HEP B, ADULT 2 DOSE, IM Unknown Completed [facility] Influenza Virus Vaccine Unknown Completed [facility] Influenza Virus Vaccine Quad .5 mL IM 6+ MO (FLUZONE/FLULAVAL/F LUARIX) Unknown Completed [facility] Influenza Virus Vaccine Quad IM, Preserv and ABX Free 6 MO-64 YRS (FLUCELVAX) Unknown Completed [facility] HEPLISAV HEP B, ADULT 2 DOSE, IM Unknown Completed [facility] Influenza Virus Vaccine Unknown Completed [facility] Influenza Virus Vaccine Quad .5 mL IM 6+ MO (FLUZONE/FLULAVAL/F LUARIX) Unknown Completed [facility] Influenza Virus Vaccine Quad IM, Preserv and ABX Free 6 MO-64 YRS (FLUCELVAX) Unknown Completed [facility] HEPLISAV HEP B, ADULT 2 DOSE, IM Unknown Completed [facility] Influenza Virus Vaccine Unknown Completed [facility] Influenza Virus Vaccine Quad .5 mL IM 6+ MO (FLUZONE/FLULAVAL/F LUARIX) Unknown Completed [facility] Influenza Virus Vaccine Quad IM, Preserv and ABX Free 6 MO-64 YRS (FLUCELVAX) Unknown Completed [facility] HEPLISAV HEP B, ADULT 2 DOSE, IM Unknown Completed [facility] Influenza Virus Vaccine Unknown Completed [facility] Influenza Virus Vaccine Quad .5 mL IM 6+ MO (FLUZONE/FLULAVAL/F LUARIX) Unknown Completed [facility] Influenza Virus Vaccine Quad IM, Preserv and ABX Free 6 MO-64 YRS (FLUCELVAX) Unknown Completed [facility] HEPLISAV HEP B, ADULT 2 DOSE, IM Unknown Completed [facility] Influenza Virus Vaccine Unknown Completed [facility] Influenza Virus Vaccine Quad .5 mL IM 6+ MO (FLUZONE/FLULAVAL/F LUARIX) Unknown Completed [facility] Influenza Virus Vaccine Quad IM, Preserv and ABX Free 6 MO-64 YRS (FLUCELVAX) Unknown Completed [facility] HEPLISAV HEP B, ADULT 2 DOSE, IM Unknown Completed [facility] Influenza Virus Vaccine Unknown Completed [facility] Influenza Virus Vaccine Quad .5 mL IM 6+ MO (FLUZONE/FLULAVAL/F LUARIX) Unknown Completed [facility] Influenza Virus Vaccine Quad IM, Preserv and ABX Free 6 MO-64 YRS (FLUCELVAX) Unknown Completed [facility] HEPLISAV HEP B, ADULT 2 DOSE, IM Unknown Completed [facility] Influenza Virus Vaccine Unknown Completed [facility] Influenza Virus Vaccine Quad .5 mL IM 6+ MO (FLUZONE/FLULAVAL/F LUARIX) Unknown Completed [facility] Influenza Virus Vaccine Quad IM, Preserv and ABX Free 6 MO-64 YRS (FLUCELVAX) Unknown Completed [facility] HEPLISAV HEP B, ADULT 2 DOSE, IM Unknown Completed [facility] Influenza Virus Vaccine Unknown Completed [facility] Influenza Virus Vaccine Quad .5 mL IM 6+ MO (FLUZONE/FLULAVAL/F LUARIX) Unknown Completed [facility] Influenza Virus Vaccine Quad IM, Preserv and ABX Free 6 MO-64 YRS (FLUCELVAX) Unknown Completed [facility] HEPLISAV HEP B, ADULT 2 DOSE, IM Unknown Completed [facility] Influenza Virus Vaccine Unknown Completed [facility] Influenza Virus Vaccine Quad .5 mL IM 6+ MO (FLUZONE/FLULAVAL/F LUARIX) Unknown Completed [facility] Influenza Virus Vaccine Quad IM, Preserv and ABX Free 6 MO-64 YRS (FLUCELVAX) Unknown Completed [facility] HEPLISAV HEP B, ADULT 2 DOSE, IM Unknown Completed [facility] Influenza Virus Vaccine Unknown Completed [facility] Influenza Virus Vaccine Quad .5 mL IM 6+ MO (FLUZONE/FLULAVAL/F LUARIX) Unknown Completed [facility] Influenza Virus Vaccine Quad IM, Preserv and ABX Free 6 MO-64 YRS (FLUCELVAX) Unknown Completed [facility] HEPLISAV HEP B, ADULT 2 DOSE, IM Unknown Completed [facility] Influenza Virus Vaccine Unknown Completed [facility] Influenza Virus Vaccine Quad .5 mL IM 6+ MO (FLUZONE/FLULAVAL/F LUARIX) Unknown Completed [facility] Influenza Virus Vaccine Quad IM, Preserv and ABX Free 6 MO-64 YRS (FLUCELVAX) Unknown Completed [facility] HEPLISAV HEP B, ADULT 2 DOSE, IM Unknown Completed [facility] Influenza Virus Vaccine Unknown Completed [facility] Influenza Virus Vaccine Quad .5 mL IM 6+ MO (FLUZONE/FLULAVAL/F LUARIX) Unknown Completed [facility] Influenza Virus Vaccine Quad IM, Preserv and ABX Free 6 MO-64 YRS (FLUCELVAX) Unknown Completed [facility] HEPLISAV HEP B, ADULT 2 DOSE, IM Unknown Completed [facility] Influenza Virus Vaccine Unknown Completed [facility] Influenza Virus Vaccine Quad .5 mL IM 6+ MO (FLUZONE/FLULAVAL/F LUARIX) Unknown Completed [facility] Influenza Virus Vaccine Quad IM, Preserv and ABX Free 6 MO-64 YRS (FLUCELVAX) Unknown Completed [facility] HEPLISAV HEP B, ADULT 2 DOSE, IM Unknown Completed [facility] Influenza Virus Vaccine Unknown Completed [facility] Influenza Virus Vaccine Quad .5 mL IM 6+ MO (FLUZONE/FLULAVAL/F LUARIX) Unknown Completed [facility] Influenza Virus Vaccine Quad IM, Preserv and ABX Free 6 MO-64 YRS (FLUCELVAX) Unknown Completed [facility] HEPLISAV HEP B, ADULT 2 DOSE, IM Unknown Completed [facility] Influenza Virus Vaccine Unknown Completed [facility] Influenza Virus Vaccine Quad .5 mL IM 6+ MO (FLUZONE/FLULAVAL/F LUARIX) Unknown Completed [facility] Influenza Virus Vaccine Quad IM, Preserv and ABX Free 6 MO-64 YRS (FLUCELVAX) Unknown Completed [facility] HEPLISAV HEP B, ADULT 2 DOSE, IM Unknown Completed [facility] Influenza Virus Vaccine Unknown Completed [facility] Influenza Virus Vaccine Quad .5 mL IM 6+ MO (FLUZONE/FLULAVAL/F LUARIX) Unknown Completed [facility] Influenza Virus Vaccine Quad IM, Preserv and ABX Free 6 MO-64 YRS (FLUCELVAX) Unknown Completed [facility] HEPLISAV HEP B, ADULT 2 DOSE, IM Unknown Completed [facility] Influenza Virus Vaccine Unknown Completed [facility] Influenza Virus Vaccine Quad .5 mL IM 6+ MO (FLUZONE/FLULAVAL/F LUARIX) Unknown Completed [facility] Influenza Virus Vaccine Quad IM, Preserv and ABX Free 6 MO-64 YRS (FLUCELVAX) Unknown Completed [facility] HEPLISAV HEP B, ADULT 2 DOSE, IM Unknown Completed [facility] Influenza Virus Vaccine Unknown Completed [facility] Influenza Virus Vaccine Quad .5 mL IM 6+ MO (FLUZONE/FLULAVAL/F LUARIX) Unknown Completed [facility] Influenza Virus Vaccine Quad IM, Preserv and ABX Free 6 MO-64 YRS (FLUCELVAX) Unknown Completed [facility] HEPLISAV HEP B, ADULT 2 DOSE, IM Unknown Completed [facility] Influenza Virus Vaccine Unknown Completed [facility] Influenza Virus Vaccine Quad .5 mL IM 6+ MO (FLUZONE/FLULAVAL/F LUARIX) Unknown Completed [facility] Influenza Virus Vaccine Quad IM, Preserv and ABX Free 6 MO-64 YRS (FLUCELVAX) Unknown Completed [facility] HEPLISAV HEP B, ADULT 2 DOSE, IM Unknown Completed [facility] Influenza Virus Vaccine Unknown Completed [facility] Influenza Virus Vaccine Quad .5 mL IM 6+ MO (FLUZONE/FLULAVAL/F LUARIX) Unknown Completed [facility] Influenza Virus Vaccine Quad IM, Preserv and ABX Free 6 MO-64 YRS (FLUCELVAX) Unknown Completed [facility] HEPLISAV HEP B, ADULT 2 DOSE, IM Unknown Completed [facility] Influenza Virus Vaccine Unknown Completed [facility] Influenza Virus Vaccine Quad .5 mL IM 6+ MO (FLUZONE/FLULAVAL/F LUARIX) Unknown Completed [facility] Influenza Virus Vaccine Quad IM, Preserv and ABX Free 6 MO-64 YRS (FLUCELVAX) Unknown Completed [facility] HEPLISAV HEP B, ADULT 2 DOSE, IM Unknown Completed [facility] Influenza Virus Vaccine Unknown Completed [facility] Influenza Virus Vaccine Quad .5 mL IM 6+ MO (FLUZONE/FLULAVAL/F LUARIX) Unknown Completed [facility] Influenza Virus Vaccine Quad IM, Preserv and ABX Free 6 MO-64 YRS (FLUCELVAX) Unknown Completed [facility] HEPLISAV HEP B, ADULT 2 DOSE, IM Unknown Completed [facility] Influenza Virus Vaccine Unknown Completed [facility] Influenza Virus Vaccine Quad .5 mL IM 6+ MO (FLUZONE/FLULAVAL/F LUARIX) Unknown Completed [facility] Influenza Virus Vaccine Quad IM, Preserv and ABX Free 6 MO-64 YRS (FLUCELVAX) Unknown Completed [facility] HEPLISAV HEP B, ADULT 2 DOSE, IM Unknown Completed [facility] Influenza Virus Vaccine Unknown Completed [facility] Influenza Virus Vaccine Quad .5 mL IM 6+ MO (FLUZONE/FLULAVAL/F LUARIX) Unknown Completed [facility] Influenza Virus Vaccine Quad IM, Preserv and ABX Free 6 MO-64 YRS (FLUCELVAX) Unknown Completed [facility] HEPLISAV HEP B, ADULT 2 DOSE, IM Unknown Completed [facility] Influenza Virus Vaccine Unknown Completed [facility] Influenza Virus Vaccine Quad .5 mL IM 6+ MO (FLUZONE/FLULAVAL/F LUARIX) Unknown Completed [facility] Influenza Virus Vaccine Quad IM, Preserv and ABX Free 6 MO-64 YRS (FLUCELVAX) Unknown Completed [facility] HEPLISAV HEP B, ADULT 2 DOSE, IM Unknown Completed [facility] Influenza Virus Vaccine Unknown Completed [facility] Influenza Virus Vaccine Quad .5 mL IM 6+ MO (FLUZONE/FLULAVAL/F LUARIX) Unknown Completed [facility] Influenza Virus Vaccine Quad IM, Preserv and ABX Free 6 MO-64 YRS (FLUCELVAX) Unknown Completed [facility] Vital Signs Vital Name Observation Time Observation Value Comments S [facility]ce Body height 2024-11-23 15:24:00 [facility]6 cm [facility] Body weight 2024-11-23 15:24:00 96.276 kg [facility] BMI 2024-11-23 15:24:00 34.26 kg/m2 [facility] Systolic blood pressure 2024-11-08 18:11:00 151 mm[Hg] [facility] Diastolic blood pressure 2024-11-08 18:11:00 54 mm[Hg] [facility] Heart rate 2024-11-08 18:11:00 76 /min [facility] Body height 2024-11-08 18:10:00 167.6 cm [facility] Body weight 2024-11-08 18:10:00 98.567 kg [facility] BMI 2024-11-08 18:10:00 35.07 kg/m2 [facility] Systolic blood pressure 2024-10-21 16:00:00 149 mm[Hg] [facility] Diastolic blood pressure 2024-10-21 16:00:00 78 mm[Hg] [facility] Heart rate 2024-10-21 16:00:00 96 /min [facility] Respiratory rate 2024-10-21 16:00:00 20 /min [facility] Body height 2024-10-21 16:00:00 167.6 cm [facility] Body weight 2024-10-21 16:00:00 95.845 kg [facility] BMI 2024-10-21 16:00:00 34.10 kg/m2 [facility] Oxygen saturation in Arterial blood by Pulse oximetry 2024-10-21 16:00:00 99 /min [facility] Systolic blood pressure 2024-08-22 18:49:00 156 mm[Hg] [facility] Diastolic blood pressure 2024-08-22 18:49:00 76 mm[Hg] [facility] Heart rate 2024-08-22 18:49:00 92 /min [facility] Body temperature 2024-08-22 18:49:00 36.89 Awa [facility] Body height 2024-08-22 18:49:00 167.6 cm [facility] Body weight 2024-08-22 18:49:00 96.707 kg [facility] BMI 2024-08-22 18:49:00 34.41 kg/m2 [facility] Oxygen saturation in Arterial blood by Pulse oximetry 2024-08-22 18:49:00 100 /min [facility] Systolic blood pressure 2024-08-12 02:24:00 146 mm[Hg] [facility] Diastolic blood pressure 2024-08-12 02:24:00 69 mm[Hg] [facility] Heart rate 2024-08-12 02:24:00 90 [facility] Body temperature 2024-08-12 02:24:00 37.06 Awa [facility] Respiratory rate 2024-08-12 02:24:00 16 /min [facility] Oxygen saturation in Arterial blood by Pulse oximetry 2024-08-12 02:24:00 98 /min [facility] Body height 2024-08-11 23:43:00 167.6 cm [facility] Body [facility] 2024-08-11 23:43:00 92.987 kg [facility] BMI 2024-08-11 23:43:00 33.09 kg/m2 [facility] Systolic blood pressure 2024-08-11 19:51:00 125 mm[Hg] [facility] Diastolic blood pressure 2024-08-11 19:51:00 52 mm[Hg] [facility] Heart rate 2024-08-11 19:51:00 74 /min [facility] Respiratory rate 2024-08-11 19:51:00 16 /min [facility] Body height 2024-08-11 19:51:00 167.6 cm [facility] Body weight 2024-08-11 19:51:00 95[facility]981 [facility] BMI 2024-08-11 19:51:00 34.15 kg/m2 [facility] Oxygen saturation in Arterial blood by Pulse oximetry 2024-08-11 19:51:00 97 /min [facility] Systolic blood pressure 2024-07-25 18:24:00 127 mm[Hg] [facility] Diastolic blood pressure 2024-07-25 18:24:00 61 mm[Hg] [facility] Heart rate 2024-07-25 18:24:00 81 /min [facility] Body temperature 2024-07-25 18:24:00 36.33 Awa [facility] Body height 2024-07-25 18:24:00 167.6 cm [facility] Body weight 2024-07-25 18:24:00 92.171 [facility] BMI 2024-07-25 18:24:00 32.80 kg/m2 [facility] Systolic blood pressure 2024-07-19 13:53:00 165 mm[Hg] [facility] Diastolic blood pressure 2024-07-19 13:53:00 67 mm[Hg] [facility] Heart rate 2024-07-19 13:53:00 88 /min [facility] Body temperature 2024-07-19 13:53:00 37 Awa [facility] Respiratory rate 2024-07-19 13:53:00 18 /min [facility] Body height 2024-07-19 13:53:00 167.6 cm [facility] Body weight 2024-07-19 13:53:00 91.173 kg [facility] BMI 2024-07-19 13:53:00 32.44 kg/m2 [facility] Oxygen saturation in Arterial blood by Pulse oximetry 2024-07-19 13:53:00 95 /min [facility] Systolic blood pressure 2024-07-14 17:15:00 172 mm[Hg] [facility] Diastolic blood pressure 2024-07-14 17:15:00 72 mm[Hg] [facility] Heart rate 2024-07-14 16:00:00 87 /min [facility] Respiratory rate 2024-07-14 16:00:00 12 /min [facility] Oxygen saturation in Arterial blood by Pulse oximetry 2024-07-14 16:00:00 98 /min [facility] Body temperature 2024-07-14 11:25:00 36.28 Awa [facility] Body height 2024-07-14 11:25:00 167.6 cm [facility] Body weight 2024-07-14 11:25:00 92.08 kg [facility] BMI 2024-07-14 11:25:00 32.77 kg/m2 [facility] Systolic blood pressure 2024-06-17 15:48:00 160 mm[Hg] [facility] Diastolic blood pressure 2024-06-17 15:48:00 92 mm[Hg] [facility] Heart rate 2024-06-17 15:48:00 92 /min [facility] Res[facility] 2024-06-17 15:48:00 18 /min [facility] Body height 2024-06-17 15:48:00 167.6 cm [facility] Body weight 2024-06-17 15:48:00 93.243 kg [facility] BMI 2024-06-17 15:48:00 33.18 kg/m2 [facility] Oxygen saturation in Arterial blood by Pulse oximetry 2024-06-17 15:48:00 98 /min [facility] Systolic blood pressure 2024-06-01 16:46:00 149 mm[Hg] [facility] Diastolic blood pressure 2024-06-01 16:46:00 74 mm[Hg] [facility] Heart rate 2024-06-01 16:46:00 90 /min [facility] Body temperature 2024-06-01 16:29:00 36.33 Awa [facility] Respiratory rate 2024-06-01 16:29:00 18 /min [facility] Body height 2024-06-01 16:29:00 167.6 cm [facility] Body weight 2024-06-01 16:29:00 92.488 kg [facility] BMI 2024-06-01 16:29:00 32.91 kg/m2 [facility] Oxygen saturation in Arterial blood by Pulse oximetry 2024-06-01 16:29:00 97 /min [facility] Systolic blood pressure 2024-05-25 17:37:00 172 mm[Hg] [facility] Diastolic blood pressure 2024-05-25 17:37:00 82 mm[Hg] [facility] Heart rate 2024-05-25 17:37:00 82 /min [facility] Body temperature 2024-05-25 17:37:00 35.5 Awa [facility] Respiratory rate 2024-05-25 17:37:00 18 /min [facility] Body height 2024-05-25 17:37:00 167.6 cm [facility] Body weight 2024-05-25 17:37:00 89.495 kg [facility] BMI 2024-05-25 17:37:00 31.85 kg/m2 [facility] Oxygen saturation in Arterial blood by Pulse oximetry 2024-05-25 17:37:00 94 /min [facility] Systolic blood pressure 2024-05-10 20:53:00 178 mm[Hg] [facility] Diastolic blood pressure 2024-05-10 20:53:00 81 mm[Hg] [facility] Heart rate 2024-05-10 20:49:00 84 /min [facility] Respiratory rate 2024-05-10 20:49:00 19 /min [facility] Body height 2024-05-10 20:49:00 167.6 cm [facility] Body weight 2024-05-10 20:49:00 92.08 kg [facility] BMI 2024-05-10 20:49:00 32.77 kg/m2 [facility] Oxygen saturation in Arterial blood by Pulse oximetry 2024-05-10 20:49:00 96 /min [facility] Systolic blood pressure 2024-04-13 16:42:00 161 mm[Hg] [facility] Diastolic blood pressure 2024-04-13 16:42:00 92 mm[Hg] [facility] Heart rate 2024-04-13 16:35:00 80 /min [facility] Respiratory rate 2024-04-13 16:35:00 18 /min obs [facility] Body height 2024-04-13 16:35:00 167.6 cm stated [facility] Body weight 2024-04-13 16:35:00 91.037 kg [facility] BMI 2024-04-13 16:35:00 32.39 kg/m2 [facility] Oxygen saturation in Arterial blood by Pulse oximetry 2024-04-13 16:35:00 97 /min [facility] Systolic blood pressure 2024-04-11 19:56:00 135 mm[Hg] [facility] Diastolic blood pressure 2024-04-11 19:56:00 98 mm[Hg] [facility] Heart rate 2024-04-11 19:56:00 81 /min [facility] Body temperature 2024-04-11 19:56:00 36.17 Awa [facility] Body height 2024-04-11 19:56:00 167.6 cm [facility] Body weight 2024-04-11 19:56:00 90.266 kg [facility] BMI 2024-04-11 19:56:00 32.12 kg/m2 [facility] Systolic blood pressure 2024-03-14 20:09:00 164 mm[Hg] [facility] Diastolic blood pressure 2024-03-14 20:09:00 88 mm[Hg] [facility] Heart rate 2024-03-14 20:08:00 103 /min [facility] Body weight 2024-03-14 20:08:00 89.359 [facility] BMI 2024-03-14 20:08:00 31.80 kg/m2 [facility] Systolic blood pressure 2024-03-10 23:10:00 175 mm[Hg] [facility] Diastolic blood pressure 2024-03-10 23:10:00 70 mm[Hg] [facility] Heart rate 2024-03-10 23:10:00 72 /min [facility] Body temperature 2024-03-10 23:10:00 36.56 Awa [facility] Respiratory rate 2024-03-10 23:10:00 14 /min [facility] Oxygen saturation in Arterial blood by Pulse oximetry 2024-03-10 23:10:00 96 /min [facility] Systolic blood pressure 2024-03-10 22:35:00 175 mm[Hg] [facility] Diastolic blood pressure 2024-03-10 22:35:00 65 mm[Hg] [facility] Heart rate 2024-03-10 22:35:00 71 /min [facility] Respiratory rate 2024-03-10 22:35:00 11 /min [facility] Oxygen saturation in Arterial blood by Pulse oximetry 2024-03-10 22:35:00 92 /min [facility] Body temperature 2024-03-10 22:02:00 36.67 Awa [facility] Systolic blood pressure 2024-03-08 16:20:00 158 mm[Hg] [facility] Diastolic blood pressure 2024-03-08 16:20:00 71 mm[Hg] [facility] Heart rate 2024-03-08 16:16:00 73 /min [facility] Respiratory rate 2024-03-08 16:16:00 18 /min [facility] Body height 2024-03-08 16:16:00 167.6 cm [facility] Body weight 2024-03-08 16:16:00 91.173 kg [facility] BMI 2024-03-08 16:16:00 32.44 kg/m2 [facility] Systolic blood pressure 2024-03-02 20:05:00 149 mm[Hg] [facility] Diastolic blood pressure 2024-03-02 20:05:00 79 mm[Hg] [facility] Heart rate 2024-03-02 20:05:00 80 /min [facility] Oxygen saturation in Arterial blood by Pulse oximetry 2024-03-02 20:05:00 96 /min [facility] Body temperature 2024-03-02 20:04:00 37 Awa [facility] Respiratory rate 2024-03-02 20:04:00 20 /min [facility] Body height 2024-03-02 20:04:00 167.6 cm [facility] Body weight 2024-03-02 20:04:00 92.08 kg [facility] BMI 2024-03-02 20:04:00 32.77 kg/m2 [facility] Systolic blood pressure 2024-03-01 21:10:00 146 mm[Hg] [facility] Diastolic blood pressure 2024-03-01 21:10:00 74 mm[Hg] [facility] Heart rate 2024-03-01 21:10:00 67 /min [facility] Oxygen saturation in Arterial blood by Pulse oximetry 2024-03-01 21:10:00 94 /min [facility] Systolic blood pressure 2024-03-01 20:55:00 160 mm[Hg] [facility] Diastolic blood pressure 2024-03-01 20:55:00 72 mm[Hg] [facility] Heart rate 2024-03-01 20:55:00 72 /min [facility] O[facility] in Arterial blood by Pulse oximetry 2024-03-01 20:55:00 91 /min [facility] Systolic blood pressure 2024-03-01 20:45:00 124 mm[Hg] [facility] Diastolic blood pressure 2024-03-01 20:45:00 107 mm[Hg] [facility] Heart rate 2024-03-01 20:45:00 77 /min [facility] Res[facility] 2024-03-01 20:45:00 15 /min [facility] Oxygen saturation in Arterial blood by Pulse oximetry 2024-03-01 20:45:00 100 /min [facility] Body temperature 2024-03-01 19:53:00 36.83 Awa [facility] Body height 2024-03-01 19:53:00 167.6 cm [facility] Body weight 2024-03-01 19:53:00 91.627 [facility] BMI 2024-03-01 19:53:00 32.60 kg/m2 [facility] Systolic blood pressure 2024-02-03 19:24:00 168 mm[Hg] [facility] Diastolic blood pressure 2024-02-03 19:24:00 76 mm[Hg] [facility] Heart rate 2024-02-03 19:24:00 85 /min [facility] Oxygen saturation in Arterial blood by Pulse oximetry 2024-02-03 19:24:00 97 /min [facility] Body temperature 2024-02-03 19:18:00 36.83 Awa [facility] Respiratory rate 2024-02-03 19:18:00 16 /min [facility] Body height 2024-02-03 19:18:00 167.6 cm [facility] Body weight 2024-02-03 19:18:00 91.627 [facility] BMI 2024-02-03 19:18:00 32.60 kg/m2 [facility] Systolic blood pressure 2024-01-03 08:00:00 161 mm[Hg] [facility] Diastolic blood pressure 2024-01-03 08:00:00 62 mm[Hg] [facility] Respiratory rate 2024-01-03 08:00:00 16 /min [facility] Heart rate 2024-01-03 07:00:00 79 /min [facility] Oxygen saturation in Arterial blood by Pulse oximetry 2024-01-03 07:00:00 100 /min [facility] Body temperature 2024-01-03 05:00:00 37.11 Awa [facility] Body height 2024-01-03 05:00:00 [facility] Body weight 2024-01-03 05:00:00 88.905 [facility] BMI 2024-01-03 05:00:00 31.64 kg/m2 [facility] Systolic blood pressure 2023-12-24 13:15:00 168 mm[Hg] [facility] Diastolic blood pressure 2023-12-24 13:15:00 74 mm[Hg] [facility] Heart rate 2023-12-24 13:12:00 67 /min [facility] Body height 2023-12-24 13:12:00 167.6 cm Univ [facility] Body weight 2023-12-24 13:12:00 90.765 [facility] BMI 2023-12-24 13:12:00 32.30 kg/m2 [facility] Oxygen saturation in Arterial blood by Pulse oximetry 2023-12-24 13:12:00 100 /min [facility] Body temperature 2023-12-16 21:32:00 35.5 Awa [facility] Body weight 2023-12-16 21:32:00 86.183 kg Univ [facility] BMI 2023-12-16 21:32:00 30.67 kg/m2 Univ [facility] Systolic blood pressure 2023-12-04 15:56:00 147 mm[Hg] [facility] Diastolic blood pressure 2023-12-04 15:56:00 72 mm[Hg] [facility] Heart rate 2023-12-04 15:54:00 96 /min [facility] Body height 2023-12-04 15:54:00 [facility].6 [facility] 2023-12-04 15:54:00 92.08 kg Univ [facility] BMI 2023-12-04 15:54:00 32.77 kg/m2 [facility] Oxygen saturation in Arterial blood by Pulse oximetry 2023-12-04 15:54:00 98 /min [facility] Body temperature 2023-12-02 21:40:00 36.28 Awa [facility] Body height 2023-12-02 21:40:00 167.6 [facility] Body weight 2023-12-02 21:40:00 91.536 kg Univ [facility] BMI 2023-12-02 21:40:00 32.57 kg/m2 [facility] Body temperature 2023-10-28 21:02:00 36.44 Awa [facility] Body weight 2023-10-28 21:02:00 92.987 kg Univ [facility] BMI 2023-10-28 21:02:00 33.09 [facility]m2 [facility] Systolic blood pressure 2023-10-23 16:00:00 147 mm[Hg] [facility] Diastolic blood pressure 2023-10-23 16:00:00 66 mm[Hg] [facility] Heart rate 2023-10-23 16:00:00 66 /min [facility] Respiratory rate 2023-10-23 16:00:00 13 /min [facility] Oxygen saturation in Arterial blood by Pulse oximetry 2023-10-23 16:00:00 96 /min [facility] Body temperature 2023-10-23 13:00:00 35.56 Awa [facility] Body weight 2023-10-23 08:21:00 91.491 kg Univ [facility] BMI 2023-10-23 08:21:00 32.56 kg/m2 [facility] Body height 2023-10-22 21:17:00 [facility].6 cm [facility] Systolic blood pressure 2023-10-16 13:12:00 136 mm[Hg] [facility] Diastolic blood pressure 2023-10-16 13:12:00 70 mm[Hg] [facility] Heart rate 2023-10-16 13:12:00 103 /min [facility] Respiratory rate 2023-10-16 13:12:00 18 /min [facility] Body weight 2023-10-16 13:12:00 92.579 kg Univ [facility] BMI 2023-10-16 13:12:00 32.94 kg/m2 Univ [facility] Oxygen saturation in Arterial blood by Pulse oximetry 2023-10-16 13:12:00 98 /min [facility] Systolic blood pressure 2023-10-05 07:52:00 152 mm[Hg] [facility] Diastolic blood pressure 2023-10-05 07:52:00 62 mm[Hg] [facility] Heart rate 2023-10-05 07:52:00 78 /min [facility] Body temperature 2023-10-05 07:52:00 36.72 Awa [facility] Respiratory rate 2023-10-05 07:52:00 16 /min [facility] Oxygen saturation in Arterial blood by Pulse oximetry 2023-10-05 07:52:00 99 /min [facility] Body height 2023-10-05 04:01:00 [facility].6 [facility] Body weight 2023-10-05 04:01:00 92.534 [facility] BMI 2023-10-05 04:01:00 32.93 kg/m2 [facility] Systolic blood pressure 2023-09-30 18:42:00 143 mm[Hg] [facility] Diastolic blood pressure 2023-09-30 18:42:00 74 mm[Hg] [facility] Heart rate 2023-09-30 18:42:00 89 /min [facility] Body height 2023-09-30 18:42:00 167.6 cm [facility] Body weight 2023-09-30 18:42:00 94.53 kg Univ [facility] BMI 2023-09-30 18:42:00 33.64 kg/m2 [facility] Oxygen saturation in Arterial blood by Pulse oximetry 2023-09-30 18:42:00 99 /min [facility] Systolic blood pressure 2023-09-01 20:11:00 93 mm[Hg] [facility] Diastolic blood pressure 2023-09-01 20:11:00 49 mm[Hg] [facility] Heart rate 2023-09-01 20:11:00 86 /min [facility] height 2023-09-01 20:11:00 167.6 cm [facility] Body weight 2023-09-01 20:11:00 96.798 kg Univ [facility] BMI 2023-09-01 20:11:00 34.44 kg/m2 [facility] Oxygen saturation in Arterial blood by Pulse oximetry 2023-09-01 20:11:00 99 /min [facility] Systolic blood pressure 2023-08-10 18:10:00 145 mm[Hg] [facility] Diastolic blood pressure 2023-08-10 18:10:00 60 mm[Hg] [facility] Heart rate 2023-08-10 18:10:00 96 /min [facility] Body temperature 2023-08-10 18:10:00 35.94 Awa [facility] Body height 2023-08-10 18:10:00 167.6 cm [facility] Body weight 2023-08-10 18:10:00 94.983 kg Univ [facility] BMI 2023-08-10 18:10:00 33.80 kg/m2 [facility] Systolic blood pressure 2023-07-14 14:43:00 125 mm[Hg] [facility] Diastolic blood pressure 2023-07-14 14:43:00 67 mm[Hg] [facility] Heart rate 2023-07-14 14:43:00 90 /min [facility] Body height 2023-07-14 14:43:00 [facility].6 [facility] Body weight 2023-07-14 14:43:00 97.433 [facility] BMI 2023-07-14 14:43:00 34.67 kg/m2 [facility] Oxygen saturation in Arterial blood by Pulse oximetry 2023-07-14 14:43:00 100 /min [facility] Body temperature 2023-06-01 19:53:00 35.83 Awa [facility] Body height 2023-06-01 19:53:00 167.6 cm [facility] Body weight 2023-06-01 19:53:00 98.022 [facility] BMI 2023-06-01 19:53:00 34.88 kg/m2 [facility] Systolic blood pressure 2023-05-22 14:03:00 151 mm[Hg] [facility] Diastolic blood pressure 2023-05-22 14:03:00 78 mm[Hg] [facility] Heart rate 2023-05-22 14:03:00 84 /min [facility] Body temperature 2023-05-22 14:03:00 36.78 Awa [facility] Respiratory rate 2023-05-22 14:03:00 20 /min [facility] Oxygen saturation in Arterial blood by Pulse oximetry 2023-05-22 14:03:00 94 /min [facility] Body height 2023-05-20 13:03:00 167.6 cm [facility] Body weight 2023-05-20 13:03:00 91.4 kg [facility] BMI 2023-05-20 13:03:00 32.52 kg/m2 [facility] Systolic blood pressure 2023-05-20 19:15:00 145 mm[Hg] [facility] Diastolic blood pressure 2023-05-20 19:15:00 62 mm[Hg] [facility] Heart rate 2023-05-20 19:15:00 74 [facility] Respiratory rate 2023-05-20 19:15:00 12 /min [facility] Oxygen saturation in Arterial blood by Pulse oximetry 2023-05-20 19:15:00 99 /min [facility] Body temperature 2023-05-20 18:35:00 36.78 Awa [facility] Body height 2023-05-20 13:03:00 167.6 cm [facility] Body weight 2023-05-20 13:03:00 91.4 kg [facility] BMI 2023-05-20 13:03:00 32.52 kg/m2 [facility] Systolic blood pressure 2023-04-23 16:54:00 137 mm[Hg] [facility] Diastolic blood pressure 2023-04-23 16:54:00 64 mm[Hg] [facility] Heart rate 2023-04-23 16:54:00 97 /min [facility] Body temperature 2023-04-23 16:54:00 35.89 Awa [facility] Body height 2023-04-23 16:54:00 167.6 cm [facility] Body weight 2023-04-23 16:54:00 99.338 [facility] BMI 2023-04-23 16:54:00 35.35 kg/m2 [facility] Oxygen saturation in Arterial blood by Pulse oximetry 2023-04-23 16:54:00 98 /min [facility] Body temperature 2023-04-13 20:04:00 36.28 [facility] Body weight 2023-04-13 20:04:00 102.513 kg [facility] BMI 2023-04-13 20:04:00 36.48 kg/m2 [facility] Body weight 2023-03-06 15:41:00 102.105 kg [facility] BMI 2023-03-06 15:41:00 36.33 kg/m2 [facility] Systolic blood pressure 2023-02-26 17:59:00 142 mm[Hg] [facility] Diastolic blood pressure 2023-02-26 17:59:00 80 mm[Hg] [facility] Heart rate 2023-02-26 17:59:00 83 /min [facility] Body [facility] 2023-02-26 17:59:00 167.6 cm Univ [facility] Body weight 2023-02-26 17:59:00 101.288 kg Univ [facility] BMI 2023-02-26 17:59:00 36.04 kg/m2 Univ [facility] Systolic blood pressure 2022-12-19 15:23:00 155 mm[Hg] [facility] Diastolic blood pressure 2022-12-19 15:23:00 72 mm[Hg] [facility] Heart rate 2022-12-19 15:23:00 76 /min [facility] O[facility] in Arterial blood by Pulse oximetry 2022-12-19 15:23:00 99 /min [facility] Body temperature 2022-12-19 15:21:00 36.44 Awa [facility] Respiratory rate 2022-12-19 15:21:00 18 /min [facility] Body height 2022-12-19 15:21:00 167.6 cm [facility] Body weight 2022-12-19 15:21:00 102.059 kg [facility] BMI 2022-12-19 15:21:00 36.32 kg/m2 [facility] Systolic blood pressure 2022-12-10 17:16:00 148 mm[Hg] [facility] Diastolic blood pressure 2022-12-10 17:16:00 72 mm[Hg] [facility] Heart rate 2022-12-10 17:16:00 89 /min Unive [facility] Respiratory rate 2022-12-10 17:16:00 14 /min [facility] Oxygen saturation in Arterial blood by Pulse oximetry 2022-12-10 17:16:00 99 /min [facility] Body temperature 2022-12-10 14:38:00 36.61 Awa [facility] Body height 2022-12-10 14:38:00 167.6 cm [facility] Body weight 2022-12-10 14:38:00 100.245 [facility] BMI 2022-12-10 14:38:00 35.67 kg/m2 Univ [facility] Systolic blood pressure 2022-11-13 12:12:00 112 mm[Hg] [facility] Diastolic blood pressure 2022-11-13 12:12:00 81 mm[Hg] [facility] Heart rate 2022-11-13 12:12:00 79 /min Unive [facility] Body temperature 2022-11-13 12:12:00 36.11 Awa [facility] Respiratory rate 2022-11-13 12:12:00 16 /min [facility] Oxygen saturation in Arterial blood by Pulse oximetry 2022-11-13 12:12:00 98 /min [facility] Body weight 2022-11-13 02:15:00 100.245 [facility] BMI 2022-11-13 02:15:00 35.67 kg/m2 [facility] Body height 2022-11-12 01:58:00 167.6 cm [facility] Systolic blood pressure 2022-10-05 20:24:46 154 mm[Hg] [facility] Diastolic blood pressure 2022-10-05 20:24:46 55 mm[Hg] [facility] Heart rate 2022-10-05 20:24:46 68 /min [facility] Respiratory rate 2022-10-05 20:24:46 18 /min [facility] Oxygen saturation in Arterial blood by Pulse oximetry 2022-10-05 20:24:46 98 /min [facility] Body temperature 2022-10-05 18:31:00 37.28 Awa [facility] Body weight 2022-10-05 18:31:00 100.245 kg Univ [facility] BMI 2022-10-05 18:31:00 35.67 kg/m2 Univ [facility] Systolic blood pressure 2022-09-30 14:07:00 141 mm[Hg] [facility] Diastolic blood pressure 2022-09-30 14:07:00 80 mm[Hg] [facility] Heart rate 2022-09-30 14:07:00 79 /min [facility] Body height 2022-09-30 14:07:00 167.6 cm [facility] Body weight 2022-09-30 14:07:00 100.29 kg [facility] BMI 2022-09-30 14:07:00 35.69 kg/m2 [facility] Systolic blood pressure 2022-03-28 15:49:00 135 mm[Hg] [facility] Diastolic blood pressure 2022-03-28 15:49:00 80 mm[Hg] University [facility] Heart rate 2022-03-28 15:49:00 87 /min [facility] Body weight 2022-03-28 15:49:00 102.468 kg [facility] BMI 2022-03-28 15:49:00 36.46 kg/m2 [facility] Oxygen saturation in Arterial blood by Pulse oximetry 2022-03-28 15:49:00 96 /min [facility] Systolic blood pressure 2022-03-11 16:21:00 148 mm[Hg] [facility] Diastolic blood pressure 2022-03-11 16:21:00 73 mm[Hg] [facility] Heart rate 2022-03-11 16:19:00 81 /min [facility] Body height 2022-03-11 16:19:00 167.6 cm [facility] Body weight 2022-03-11 16:19:00 101.833 kg [facility] BMI 2022-03-11 16:19:00 36.24 kg/m2 [facility] Oxygen saturation in Arterial blood by Pulse oximetry 2022-03-11 16:19:00 97 /min [facility] Systolic blood pressure 2024-05-25 17:37:00 172 mm[Hg] [facility] Diastolic blood pressure 2024-05-25 17:37:00 82 mm[Hg] [facility] Heart rate 2024-05-25 17:37:00 82 /min [facility] Body temperature 2024-05-25 17:37:00 35.5 Awa [facility] Respiratory rate 2024-05-25 17:37:00 18 /min [facility] Body height 2024-05-25 17:37:00 [facility].6 cm [facility] Body weight 2024-05-25 17:37:00 89.495 [facility] BMI 2024-05-25 17:37:00 31.85 kg/m2 [facility] Oxygen saturation in Arterial blood by Pulse oximetry 2024-05-25 17:37:00 94 /min [facility] Systolic blood pressure 2024-04-11 19:56:00 135 mm[Hg] [facility] Diastolic blood pressure 2024-04-11 19:56:00 98 mm[Hg] [facility] Heart rate 2024-04-11 19:56:00 81 /min [facility] Body temperature 2024-04-11 19:56:00 36.17 Awa [facility] Body height 2024-04-11 19:56:00 167.6 cm [facility] Body weight 2024-04-11 19:56:00 90.266 [facility] BMI 2024-04-11 19:56:00 32.12 kg/m2 [facility] Respiratory rate 2024-03-10 23:10:00 14 /min [facility] Oxygen saturation in Arterial blood by Pulse oximetry 2024-03-10 23:10:00 96 /min [facility] Procedures Procedure Date / Time Performed Performing Clinician Source XR HIPS 2 VW RIGHT 2024-11-08 18:50:00 [facility] HEMOGLOBIN A1C TEST 2024-10-21 15:55:00 Grady Puri [facility] XR ANKLE 3+ VW RIGHT 2024-08-12 00:40:19 Oleg Marks [facility] XR FOOT 3+ VW RIGHT 2024-08-12 00:40:19 Crystal Marks [facility] FL TIME OR (NON-REPORTABLE) 2024-07-19 15:24:21 Shawanda Dumas [facility] POCT GLUCOSE (AUTOMATED) 2024-07-19 14:57:00 Rabia Dumsa [facility] POCT GLUCOSE (AUTOMATED) 2024-07-19 13:52:00 Rabia Dumas [facility] POCT GLUCOSE (AUTOMATED) 2024-07-14 16:25:00 Tessa Rodriguez [facility] POCT GLUCOSE (AUTOMATED) 2024-07-14 14:48:00 Tessa Rodriguez [facility] POCT GLUCOSE (AUTOMATED) 2024-07-14 13:33:00 Tessa Rodriguez [facility] CATH PROCEDURE LOG 2024-07-14 13:28:51 Doctor Un assigned, [place] [facility] CARDIAC CATHETERIZATION 2024-07-14 13:17:55 Wu To [facility] CARDIAC CATHETERIZATION 2024-07-14 13:17:55 Wu To [facility] POCT ACT LOW RANGE 2024-07-14 13:03:00 Marc Rodriguez [facility] BASIC METABOLIC PANEL (NA, K, CL, CO2, GLUCOSE, BUN, CREATININE, CA) 2024-07-14 12:13:00 Marc Rodriguez [facility] POCT GLUCOSE (AUTOMATED) 2024-07-14 12:05:00 Tessa Rodriguez [facility] CBC WITH DIFF 2024-07-14 12:02:00 Marc Rodriguez [facility] POCT HEMOGLOBIN A1C TEST 2024-06-17 15:54:00 Grady Puri [facility] MYOCARDIUM PERFUSION STRESS AND REST 2024-05-24 18:00:00 [facility] 2024-05-24 18:00:00 Edel [facility] MYOCARDIUM PERFUSION STRESS AND REST 2024-05-24 18:00:00 Edel [facility] MYOCARDIUM PERFUSION STRESS AND REST 2024-05-24 18:00:00 [facility] PERFUSION STRESS AND REST 2024-05-24 18:00:00 Edel [facility] NUCLEAR STRESS TEST CARDIOLOGY (DO NOT SCHED) 2024-05-24 [facility],US,NON-IMAGING 2024-04-13 16:41:00 [facility] THO,POST-VOID RES,US,NON-IMAGING 2024-04-13 16:41:00 [facility] POCT URINALYSIS AUTO 2024-04-13 16:33:00 [facility] POCT URINALYSIS AUTO 2024-04-13 16:33:00 [facility] PHYSICIAN ORDERS 2024-04-06 18:51:40 Doctor Unas signed, [place] [facility] CBC WITH DIFF 2024-04-05 21:19:00 Chon Margret [facility] COMP. METABOLIC PANEL ([id number]) 2024-04-05 21:19:00 Bryan Givensalyn [facility] TRANSFERRIN 2024-04-05 21:19:[address] [facility] FERRITIN SERUM 2024-04-05 21:19:[address] [facility] IRON PANEL 2024-04-05 21:19:[address] [facility] POCT GLUCOSE (AUTOMATED) 2024-03-10 22:09:00 [facility] 2024-03-10 22:09:00 [facility] ([facility]OMATED) 2024-03-10 22:09:00 [facility] URINE CULTURE 2024-03-10 21:16:00 Khalida [facility] INTUBATION 2024-03-10 20:54:00 Erin Quintero [facility] INTUBATION 2024-03-10 20:54:00 Leon Erin [facility] [id number] - [place] ENUCLEATION PROSTATE W/MORCELLATION 2024-03-10 20:24:00 [facility] [id number] - [place] ENUCLEATION PROSTATE W/MORCELLATION 2024-03-10 20:24:00 [facility] SURGICAL PATHOLOG[facility]AM 2024-03-10 19:13[facility]00 [facility] 2024-03-10 17:04:00 [facility] POCT GLUCOSE (AUTOMATED) 2024-03-10 17:04:00 [facility] POCT GLUCOSE (AUTOMATED) 2024-03-10 17:04:00 [facility] CBC WITH DIFF 2024-03-02 22:47:00 [facility] COMP. METABOLIC PANEL ([id number]) 2024-03-02 22:47:00 [facility] THO,POST-VOID RES,US,NON-IMAGING 2024-03-02 22:16:00 [facility] THO,POST-VOID RES,US,NON-IMAGING 2024-03-02 22:16:00 [facility] URINE CULTURE 2024-03-02 21:57:00 [facility] URINE CULTURE 2024-03-02 21:57:00 [facility] POCT URINALYSIS AUTO 2024-03-02 00:00:00 Martina Parson [facility] POCT URINALYSIS AUTO 2024-03-02 00:00:00 Martina Parson [facility] FL TIME OR (NON-REPORTABLE) 2024-03-01 20:47:58 Shawanda Dumas [facility] FL TIME OR (NON-REPORTABLE) 2024-03-01 20:47:58 Shawanda Dumas [facility] POCT GLUCOSE (AUTOMATED) 2024-03-01 20:12:00 Rabia Dumas [facility] POCT GLUCOSE (AUTOMATED) 2024-03-01 20:12:00 Rabia Dumas [facility] PHYSICIAN ORDERS 2024-02-12 17:03:14 Doctor Cynthia signed, [place] [facility] URINALYSIS 2024-02-10 16:42:00 [facility] URINE CULTURE 2024-02-10 16:42:00 Devante Wheeler [facility] MICROALBUMIN URINE 2024-02-10 16:42:00 Devante Wheeler [facility] PROTEIN CREAT RATIO URINE RANDOM 2024-02-10 16:42:00 Devante Wheeler [facility] IMMUNOFIXATION, URINE 2024-02-10 16:42:00 Vivek Wheeler [facility] PROSTATIC SPECIFIC ANTIGEN 2024-02-10 16:40:00 Bettye Parson [facility] COMP. METABOLIC PANEL ([id number]) 2024-02-10 16:40:00 Devante Wheeler [facility] MAGNESIUM 2024-02-10 16:40:00 [facility] PHOSPHORUS 2024-02-10 16:40:00 [facility] URIC ACID 2024-02-10 16:40:00 Deavnte [facility] C4 COMPLEMENT 2024-02-10 16:40:00 Devante Wheeler [facility] ELECTROPHORESIS, SERUM 2024-02-10 16:40:00 Deshawn Wheeler [facility] HEPATITIS B SURFACE ANTIGEN 2024-02-10 16:40:00 Devante Wheeler [facility] HEPATITIS B SURFACE ANTIBODY 2024-02-10 16:40:00 Devante Wheeler [facility] HCV ANTIBODY 2024-02-10 16:40:00 [facility] INTACT PTH CALCIUM GROUP 2024-02-10 16:40:00 Devante Wheeler [facility] VITAMIN D, 25-OH 2024-02-10 16:40:00 Devante Wheeler [facility] ANTI-DOUBLE STRANDED DNA 2024-02-10 16:40:00 Devante Wheeler [facility] SMOOTH MUSCLE AB,IGG W/REFLEX 2024-02-10 16:40:00 Devante Wheeler [facility] N-TERMINAL PRO-BNP 2024-02-10 16:40:00 Devante Wheeler [facility] GLYCOSYLATED HEMOGLOBIN (A1C) 2024-02-10 16:40:00 Devante Wheeler [facility] ANTI-SCL-70 2024-02-10 16:40:00 [facility] THO,POST-VOID RES,US,NON-IMAGING 2024-02-03 19:32:00 Khalida [facility] THO,POST-VOID RES,US,NON-IMAGING 2024-02-03 19:32:00 Khalida [facility] FLU VACC (), 6 MO-64 YRS, .5ML, IM, TIV (FLUCELVAX) 2024-02-02 17:25:06 Doctor Unassigned, [place] [facility] FLU VACC (), 6 MO-64 YRS, .5ML, IM, TIV (FLUCELVAX) 2024-02-02 17:25:06 Doctor Unassigned, [place] [facility] URINALYSIS 2024-01-03 05:33:00 [facility] POCT GLUCOSE (AUTOMATED) 2024-01-03 05:10:00 Mónica Wilkinson [facility] TROPONIN I 2024-01-03 05:05:00 Socorro Wilkinson [facility] BASIC METABOLIC PANEL (NA, K, CL, CO2, GLUCOSE, BUN, CREATININE, CA) 2024-01-03 05:05:00 Socorro Wilkinson [facility] CBC WITHOUT DIFF 2024-01-03 05:05:00 Socorro Wilkinson [facility] PROTHROMBIN TIME / INR 2024-01-03 05:05:00 Mukesh Wilkinson [facility] ACTIVATED PARTIAL THRMPLAS AMY 2024-01-03 05:05:00 Socorro Wilkinson [facility] MR LUMBAR SPINE W WO CONTRAST 2023-12-11 18:30:52 Patrick Bazzi [facility] PHYSICIAN ORDERS 2023-11-24 17:21:57 Doctor Unas signed, [place] [facility] BASIC METABOLIC PANEL (NA, K, CL, CO2, GLUCOSE, BUN, CREATININE, CA) 2023-10-23 13:57:00 Delonte Kim [facility] CBC WITHOUT DIFF 2023-10-23 13:57:00 Delonte Kim [facility] EKG-12 LEAD 2023-10-23 13:31:56 Crystal [facility] POCT GLUCOSE (AUTOMATED) 2023-10-23 12:39:00 Ashlie Kim [facility] PREPARE PACKED RBC 2023-10-23 07:36:57 Crystal Marks [facility] TRANSFUSE PACKED RBC 2023-10-23 04:33:00 Oleg Marks [facility] FERRITIN SERUM 2023-10-23 03:31:00 [facility] IRON 2023-10-23 03:31:00 Gerry Kimlani [facility] TOTAL IRON BINDING CAPACITY 2023-10-23 03:31:00 Delonte Kim [facility] POCT GLUCOSE (AUTOMATED) 2023-10-23 02:47:00 Ashlie Kim [facility] HB ABO GROUPING 2023-10-23 00:04:[address] [facility] TROPONIN I 2023-10-22 22:26:00 Crystal [facility] COMP. METABOLIC PANEL (06118) 2023-10-22 22:26:00 Crystal Marks [facility] CBC WITH DIFF 2023-10-22 22:26:00 Crystal Marks [facility] GLYCOSYLATED HEMOGLOBIN (A1C) 2023-10-22 22:26:00 Delonte Kim [facility] URINALYSIS 2023-10-22 22:26:00 [facility] N-TERMINAL PRO-BNP 2023-10-22 22:26:00 Crystal Marks [facility] XR CHEST 1 VW 2023-10-22 22:14:03 Crystal Marks [facility] CT ABDOMEN PELVIS WO CONTRAST 2023-10-22 22:11:00 Crystal Marks [facility] CT ABDOMEN PELVIS WO CONTRAST 2023-10-05 06:24:00 Sienna Puente [facility] URINALYSIS 2023-10-05 06:10:00 Sienna [facility] XR HIPS 2 VW RIGHT 2023-10-05 04:47:26 Sienna Puente [facility] SEDIMENTATION RATE 2023-09-30 19:16:00 Dallin Luis [facility] ANTI-NUCLEAR ANTIBODY SCREEN 2023-09-30 19:16:00 Dallin Luis [facility] ANTI-NUCLEAR ANTIBODY TITER 2023-09-30 19:16:00 Dallin Luis [facility] ANTI-NUCLEAR ANTIBODY-PATHOLOGIST INTERPRETATION 2023-09-30 19:16:00 Dallin Luis [facility] REFERRAL- REQUEST/RESPONSE 2023-08-11 13:20:49 D octor Unassigned, [place] [facility] LIPID PANEL (69119)(TOTAL CHOLESTEROL, TRIGLYCERIDES, HDL) 2023-07-17 15:43:00 Lorenzo Puri [facility] POCT HEMOGLOBIN A1C TEST 2023-07-14 14:45:00 Grady Puri [facility] POCT GLUCOSE (AUTOMATED) 2023-05-22 15:09:00 Ashlie Michaels [facility] BASIC METABOLIC PANEL (NA, K, CL, CO2, GLUCOSE, BUN, CREATININE, CA) 2023-05-22 11:47:00 Allison Goldberg [facility] CBC WITH DIFF 2023-05-22 11:47:00 Allison Goldberg [facility] POCT GLUCOSE (AUTOMATED) 2023-05-22 02:45:00 Ashlie Michaels [facility] POCT GLUCOSE (AUTOMATED) 2023-05-22 00:06:00 Ashlie Michaels [facility] POCT GLUCOSE (AUTOMATED) 2023-05-21 21:41:00 Ashlie Michaels [facility] POCT GLUCOSE (AUTOMATED) 2023-05-21 21:38:00 Ashlie Michaels [facility] POCT GLUCOSE (AUTOMATED) 2023-05-21 18:41:00 Ashlie Michaels [facility] POCT GLUCOSE (AUTOMATED) 2023-05-21 13:47:00 Ashlie Michaels [facility] POCT GLUCOSE (AUTOMATED) 2023-05-21 13:47:00 Ashlie Michaels [facility] POCT GLUCOSE (AUTOMATED) 2023-05-21 12:59:00 Ashlie Michaels [facility] POCT GLUCOSE (AUTOMATED) 2023-05-21 12:59:00 Ashlie Michaels [facility] BASIC METABOLIC PANEL (NA, K, CL, CO2, GLUCOSE, BUN, CREATININE, CA) 2023-05-21 11:27:00 Velarde, [facility] CBC WITH DIFF 2023-05-21 11:27:00 [facility] BASIC METABOLIC PANEL (NA, K, CL, CO2, GLUCOSE, BUN, CREATININE, CA) 2023-05-21 11:27:00 Syd [facility] CBC WITH DIFF 2023-05-21 11:27:00 [facility] POCT GLUCOSE (AUTOMATED) 2023-05-21 09:51:00 Ashlie Michaels [facility] POCT GLUCOSE (AUTOMATED) 2023-05-21 09:51:00 Ashlie Michaels [facility] POCT GLUCOSE (AUTOMATED) 2023-05-21 05:19:00 Michaels, J marquise [facility] POCT GLUCOSE (AUTOMATED) 2023-05-21 05:19:00 Ashlie Michaels [facility] POCT GLUCOSE (AUTOMATED) 2023-05-21 02:31:00 Ashlie Michaels [facility] POCT GLUCOSE (AUTOMATED) 2023-05-21 02:31:00 Ashlie Michaels [facility] POCT GLUCOSE (AUTOMATED) 2023-05-21 00:03:00 Ashlie Michaels [facility] POCT GLUCOSE (AUTOMATED) 2023-05-21 00:03:00 Ashlie Michaels [facility] GLYCOSYLATED HEMOGLOBIN (A1C) 2023-05-20 19:27:00 Syd [facility] GLYCOSYLATED HEMOGLOBIN (A1C) 2023-05-20 19:27:00 Syd Min [facility] ABG+COOX+NA+K+GLU+CA2+ 2023-05-20 18:09:00 Eriberto Michaels [facility] ABG+COOX+NA+K+GLU+CA2+ 2023-05-20 18:09:00 Eriberto Michaels [facility] FL TIME OR (NON-REPORTABLE) 2023-05-20 18:07:00 Hector Michaels [facility] FL TIME OR (NON-REPORTABLE) 2023-05-20 18:07:00 Hector Michaels [facility] ABG+COOX+NA+K+GLU+CA2+ 2023-05-20 18:02:00 Eriberto Michaels [facility] ABG+COOX+NA+K+GLU+CA2+ 2023-05-20 18:02:00 Eriberto Michaels [facility] VBG+VCOOX+NA+K+GLU+CA2+ 2023-05-20 17:10:00 Silvio Michaels [facility] VBG+VCOOX+NA+K+GLU+CA2+ 2023-05-20 17:10:00 Silvio Michaels [facility] VBG+VCOOX+NA+K+GLU+CA2+ 2023-05-20 15:49:00 Silvio Michaels [facility] VBG+VCOOX+NA+K+GLU+CA2+ 2023-05-20 15:49:00 Silvio Michaels [facility] POCT GLUCOSE (AUTOMATED) 2023-05-20 14:48:00 Ashlie Michaels [facility] LAMINECTOMY LUMBAR 2023-05-20 14:48:00 Hector Michaels [facility] POCT GLUCOSE (AUTOMATED) 2023-05-20 14:48:00 Ashlie Michaels [facility] LAMINECTOMY LUMBAR 2023-05-20 14:48:00 Hector Michaels [facility] POCT GLUCOSE (AUTOMATED) 2023-05-20 13:20:00 Ashlie Michaels [facility] POCT GLUCOSE (AUTOMATED) 2023-05-20 13:20:00 Ashlie Michaels [facility] BASIC METABOLIC PANEL (NA, K, CL, CO2, GLUCOSE, BUN, CREATININE, CA) 2023-05-20 13:17:00 Abraham Luke [facility] URINE DRUG (IMMUNOASSAY) - COMPREHENSIVE DRUG SCREEN 2023-05-20 13:17:00 Abraham Luke [facility] HB ABO GROUPING 2023-05-20 13:17:00 Fritz Escobar i [facility] BASIC METABOLIC PANEL (NA, K, CL, CO2, GLUCOSE, BUN, CREATININE, CA) 2023-05-20 13:17:00 Abraham Luke [facility] URINE DRUG (IMMUNOASSAY) - COMPREHENSIVE DRUG SCREEN 2023-05-20 13:17:00 Abraham Luke [facility] HB ABO GROUPING 2023-05-20 13:17:00 Fritz Escobar i [facility] ASSIGNMENT OF BENEFITS 2023-05-20 12:49:51 Docto r Unassigned, [place] [facility] HB INDIRECT ANTIGLOBULIN TEST 2023-05-19 23:19:00 Fritz Escobar [facility] TYPE AND SCREEN 2023-05-19 23:19:00 Fritz Escobar i [facility] HB ABO GROUPING 2023-05-19 16:39:00 Fritz Escobar i [facility] PATIENT QUESTIONNAIRE 2023-04-23 06:01:00 Doctor Unassigned, [place] [facility] PATIENT QUESTIONNAIRE 2023-04-23 06:01:00 Doctor Unassigned, [place] [facility] EXTERNAL PROVIDER RECORDS 2023-04-16 06:01:00 Do ctor Unassigned, [place] [facility] EXTERNAL PROVIDER RECORDS 2023-03-12 06:01:00 Do ctor Unassigned, [place] [facility] MR LUMBAR SPINE WO CONTRAST 2023-03-03 14:41:14 Dallin Luis [facility] XR LUMBAR SPINE 3 VW 2023-02-26 19:06:49 Karoline Luis [facility] ASSIGNMENT OF BENEFITS 2023-02-26 18:38:25 Docto r Unassigned, [place] [facility] INSURANCE CORRESPONDENCE 2023-02-25 05:01:00 Doc tor Unassigned, [place] [facility] JUVENCIO MULTI LEVEL - BY VASCULAR LAB 2023-01-08 15:43:00 Erin Kim [facility] XR RIBS 4+ VW LEFT 2022-12-10 15:58:00 Martha Nguyen [facility] CONSENT/REFUSAL FOR DIAGNOSIS AND TREATMENT 2022-12-10 14:32:30 Doctor Unassigned, [place] [facility] REFERRAL- REQUEST/RESPONSE 2022-11-18 05:01:00 D octor Unassigned, [place] [facility] EXTERNAL PROVIDER RECORDS 2022-11-14 05:01:00 Do ctor Unassigned, [place] [facility] POCT GLUCOSE (AUTOMATED) 2022-11-13 12:23:00 Christopher Almeida [facility] MAGNESIUM 2022-11-13 09:11:00 Kendell Herbert [facility] BASIC METABOLIC PANEL (NA, K, CL, CO2, GLUCOSE, BUN, CREATININE, CA) 2022-11-13 09:11:00 Kendell Herbert [facility] XR HIPS 2 VW BILATERAL 2022-11-13 01:52:23 Demetri Herbert [facility] POCT GLUCOSE (AUTOMATED) 2022-11-13 01:13:00 Christopher Almeida [facility] POCT GLUCOSE (AUTOMATED) 2022-11-12 22:38:00 Christopher Almeida [facility] TRANSTHORACIC ECHO (TTE) COMPLETE W/ CONTRAST 2022-11-12 16:18:00 Omar Almeida [facility] US ABDOMEN LIMITED 2022-11-12 13:40:00 Omar Almeida [facility] POCT GLUCOSE (AUTOMATED) 2022-11-12 12:25:00 Christopher Almeida [facility] TROPONIN I 2022-11-12 10:04:00 [facility] GLYC[facility] (A1C) 2022-11-12 09:37:00 Omar Almeida [facility] CT ABDOMEN PELVIS W CONTRAST 2022-11-12 03:54:00 Socorro Wilkinson [facility] URINE DRUG (IMMUNOASSAY) - COMPREHENSIVE DRUG SCREEN 2022-11-12 02:51:00 Socorro Wilkinson [facility] URINALYSIS 2022-11-12 02:51:00 Socorro Wilkinson [facility] CREATININE, URINE RANDOM 2022-11-12 02:51:00 Mónica Herbert [facility] SODIUM, URINE RANDOM 2022-11-12 02:51:00 Kendell Herbert [facility] LIPASE 2022-11-12 02:01:00 Socorro Wilkinson [facility] MAGNESIUM 2022-11-12 02:01:00 Socorro Wilkinson [facility] TROPONIN I 2022-11-12 02:01:00 Socorro Wilkinson [facility] COMP. METABOLIC PANEL (94442) 2022-11-12 02:01:00 Socorro Wilkinson [facility] ETHANOL 2022-11-12 02:01:00 Socorro Wilkinson [facility] CBC WITH DIFF 2022-11-12 02:01:00 [facility] / INR 2022-11-12 02:01:00 Mukesh Wilkinson [facility] ACTIVATED PARTIAL THRMPLAS AMY 2022-11-12 02:01:00 Socorro Wilkinson [facility] N-TERMINAL PRO-BNP 2022-11-12 02:01:00 Socorro Wilkinson [facility] HB ECG ROUTINE & RHYTHM STRIP 2022-11-12 01:54:47 Socorro Wilkinson [facility] CONSENT/REFUSAL FOR DIAGNOSIS AND TREATMENT 2022-11-12 01:48:47 Doctor Unassigned, [place] [facility] EXTERNAL PROVIDER RECORDS 2022-11-11 05:01:00 Do ctor Unassigned, [place] [facility] URINALYSIS 2022-10-05 19:20:00 [facility]REFUSAL FOR DIAGNOSIS AND TREATMENT 2022-10-05 18:28:34 Doctor Unassigned, [place] [facility] POCT HEMOGLOBIN A1C TEST 2022-09-30 14:12:00 Nathaniel Mayes [facility] INSURANCE CORRESPONDENCE 2022-09-29 05:01:00 Doc tor Unassigned, [place] [facility] EXTERNAL PROVIDER RECORDS 2022-08-29 05:01:00 Do ctor Unassigned, [place] [facility] EXTERNAL PROVIDER RECORDS 2022-08-20 05:01:00 Do ctor Unassigned, [place] [facility] POCT HEMOGLOBIN A1C TEST 2022-03-28 15:56:00 Keara Orourke [facility] CONSENT/REFUSAL FOR DIAGNOSIS AND TREATMENT 2022-03-28 15:46:53 Doctor Unassigned, [place] [facility] XR CHEST 2 VW 2022-03-11 17:30:33 Chester Walters [facility] EXTERNAL PROVIDER RECORDS 2022-03-10 06:01:00 Do ctor Unassigned, [place] [facility] INSURANCE CORRESPONDENCE 2022-03-06 06:01:00 Doc tor Unassigned, [place] [facility] COLONOSCOPY (ENDO) 2019-11-04 14:53:25 Samson Perdomo [facility] AGREEMENTS AUTHORIZATIONS AND IRREVOCABLE ASSIGNMENTS (FORM 2001) 2018-03-17 06:01:00 Doctor Unassigned, [place] [facility] Encounters Start Date/Time End Date/Time Encounter Type Admission Type Attending [facility] Care Facility Care Department Encounter ID Source 2024-01-20 13:06:56 Emergency [facility] [id number] [facility] 2021-02-24 08:30:34 Emergency [facility] [id number] [facility] 2021-02-22 23:02:20 Emergency [facility] [id number] [facility] 2021-02-22 04:34:35 Outpatient ESSIE GUERRA [facility] [id number] [facility] 2025-03-07 15:00:00 2025-03-07 15:00:00 Outpatient LORENZO ESTRADA [facility] [id number] [facility] 2025-02-22 10:00:00 2025-02-22 10:00:00 Outpatient [facility] [id number] [facility] 2024-11-23 10:30:00 2024-11-23 10:55:12 Office Visit ADRIANA VILLEDA [facility] 1.2.840.114 350.1.13.10 4.2.7.2.686 [id number] [facility] 2024-11-08 13:10:23 2024-11-08 23:59:00 Hospital Encounter Grady Lagos [facility]?JOHNDanielle [facility] 1.2.840.114 350.1.13.10 4.2.7.2.686 [id number] [facility] 2024-11-08 13:45:00 2024-11-08 14:13:20 Office Visit Grady Lagos [facility] 1.2.840.114 350.1.13.10 4.2.7.2.686 [id number] [facility] 2024-11-01 09:45:00 2024-11-01 10:04:53 Ancillary Visit R KATRIN WISE [facility] 1.2.840.114 350.1.13.10 4.2.7.2.686 [id number] [facility] 2024-10-21 11:00:00 2024-10-21 11:48:28 Office Visit R Blake [facility] EFRAÍN?YAEL ME[facility] 1.2.840.114 350.1.13.10 4.2.7.2.686 [id number] [facility] 2024-10-21 11:00:00 2024-10-21 11:00:00 Outpatient R BLAKE [facility] [id number] [facility] 2024-10-19 14:15:00 2024-10-19 14:15:00 Outpatient SHAWANDA STANLEY [facility] [id number] [facility] 2024-10-19 00:00:00 2024-10-19 09:54:56 Refill Blake [facility] EFRAÍN?[facility] 1.2.840.114 350.1.13.10 4.2.7.2.686 [id number] [facility] 2024-10-10 00:00:00 2024-10-11 09:06:59 Refill Blake [facility] EFRAÍN?[facility] 1.2.840.114 350.1.13.10 4.2.7.2.686 [id number] [facility] 2024-08-31 09:00:00 2024-08-31 09:00:00 Outpatient JOHANA HARRIS [facility] [id number] [facility] 2024-08-24 09:15:00 2024-08-24 09:15:00 Outpatient SHAWANDA STANLEY [facility] [id number] [facility] 2024-08-22 14:45:00 2024-08-22 14:50:00 Outpatient [facility] [id number] [facility] 2024-08-22 14:45:00 2024-08-22 14:50:00 Office Visit Kiley [facility]?YAEL [facility] 1.2.840.114 350.1.13.10 4.2.7.2.686 [id number] [facility] 2019-11-03 00:00:00 2024-08-18 21:56:53 Telephone Samson Perdomo [facility] 1.2.840.114 350.1.13.10 4.2.7.2.686 [id number] [facility] 2023-07-25 00:00:00 2024-08-18 21:06:02 Refill Gerber Kevin [facility]?YAEL [facility] 1.2.840.114 350.1.13.10 4.2.7.2.686 [id number] [facility] 2024-08-17 15:30:00 2024-08-17 15:30:00 Outpatient R MONIQUE LOPEZ SELENA [facility] [id number] [facility] 2024-07-07 00:00:00 2024-08-13 18:22:30 Patient Secure Jade [facility]re[facility] 1..840.114 350.1.13.10 4.2.7.2.686 [id number] [facility] 2024-08-11 18:45:00 2024-08-11 21:38:00 Emergency X KENDRICK, CRYSTAL TORRES [facility] ERT [id number] [facility] 2024-08-11 18:45:00 2024-08-11 21:38:00 Emergency Crystal Marks Mónica [facility] 1..114 350.1.13.10 4.2.7.2.686 [id number] [facility] 2024-08-11 14:20:00 2024-08-11 15:04:18 [facility] 1.20.114 350.1.13.10 4.2.7.2.686 [id number] [facility] 2024-08-11 14:20:00 2024-08-11 15:04:18 Outpatient R [facility] [id number] [facility] 2024-08-02 00:00:00 2024-08-04 11:51:10 [facility] 1.114 350.1.13.10 4.2.7.2.686 [id number] [facility] 2024-07-25 13:30:00 2024-07-25 14:00:19 Outpatient R HECTOR MICHAELS JAMES [facility] [id number] [facility] 2024-07-25 13:30:00 2024-07-25 14:00:19 Office Visit Hector Michaels [facility] 1.114 350.1.13.10 4.2.7.2.686 [id number] [facility] 2024-07-19 09:05:00 2024-07-19 23:59:00 Outpatient R SHAWANDA DUMAS [facility] [id number] [facility] 2024-07-19 09:05:00 2024-07-19 23:59:00 Hospital Encounter Shawanda Dumas [facility] 1.114 350.1.13.10 4.2.7.2.686 [id number] [facility] 2024-07-19 09:00:00 2024-07-19 09:30:00 Office Visit Shawanda Dumas [facility] 1.2840.114 350.1.13.10 4.2.7.2.686 [id number] [facility] 2024-07-15 00:00:00 2024-07-15 16:28:43 Telephone Jade To [facility] 1.2840.114 350.1.13.10 4.2.7.2.686 [id number] [facility] 2024-07-14 06:24:00 2024-07-14 12:36:00 Outpatient MARC MILLER [facility] [id number] [facility] 2024-07-14 06:24:00 2024-07-14 12:36:00 Hospital Encounter Marc Rodriguez [facility] 1.2840.114 350.1.13.10 4.2.7.2.686 [id number] [facility] 2024-07-13 11:15:00 2024-07-13 12:07:05 Outpatient R BETTYE PARSON [facility] [id number] [facility] 2024-07-07 15:39:31 2024-07-07 15:39:31 Outpatient SFA DANNIE [id number] Yong Strange Jace 2024-07-07 09:45:00 2024-07-07 09:45:00 Outpatient R JADE TO [facility] [id number] [facility] 2024-07-07 08:30:00 2024-07-07 08:30:00 Outpatient R [facility] [id number] [facility] 2024-07-01 14:00:00 2024-07-01 14:00:00 Outpatient R ZOFIA MULLINS [facility] [id number] [facility] 2024-06-23 08:15:00 2024-06-23 08:15:00 Outpatient R SHAWANDA DUMAS [facility] [id number] [facility] 2024-06-22 09:00:00 2024-06-22 09:55:52 Outpatient R LORENZO PURI [facility] [id number] [facility] 2024-06-22 09:00:00 2024-06-22 09:55:52 Nurse Visit Nurse, Ang Endo/Diab Lorenzo Puri Nurse, Ang Endo/Diab [facility]?YAEL [facility] 1.2.840.114 350.1.13.10 4.2.7.2.686 [id number] [facility] 2024-06-21 00:00:00 2024-06-21 15:06:45 [facility] 1.2.840.114 350.1.13.10 4.2.7.2.686 [id number] [facility] 2024-06-20 00:00:00 2024-06-21 10:36:50 [facility] 1.2.840.114 350.1.13.10 4.2.7.2.686 [id number] [facility] 2024-06-21 00:00:00 2024-06-21 09:18:21 Telephone Marc Rodriguez [facility] 1.2.840.114 350.1.13.10 4.2.7.2.686 [id number] [facility] 2024-06-17 00:00:00 2024-06-17 16:03:28 Telephone Lorenzo Puri [facility]?YAEL [facility] 1.2.84114 350.1.13.10 4.2.7.2.686 [id number] [facility] 2024-06-17 10:45:00 2024-06-17 11:00:00 Hospital Admitting Clerk Visit Lab, Ang - Db Lorenzo Puri Lab, Ang - Db [facility]?YAEL [facility] 1.84114 350.1.13.10 4.2.7.2.686 [id number] [facility] 2024-06-17 10:00:00 2024-06-17 10:39:23 Outpatient R LORENZO PURI [facility] [id number] [facility] 2024-06-17 10:00:00 2024-06-17 10:39:23 Office Visit Lorenzo Puri [facility] 1..114 350.1.13.10 4.2.7.2.686 [id number] [facility] 2024-06-16 00:00:00 2024-06-16 13:53:52 Telephone [address] Puri [facility] 1.114 350.1.13.10 4.2.7.2.686 [id number] [facility] 2024-06-14 13:00:00 2024-06-14 23:59:00 Outpatient R JADE TO [facility] [id number] [facility] 2024-06-14 12:44:08 2024-06-14 23:59:00 Hospital Encounter [facility] 1..114 350.1.13.10 4.2.7.2.686 [id number] [facility] 2023-11-24 00:00:00 2024-06-11 07:13:19 Orders Only Doctor Unassigned, [place] Doctor Unassigned, [place] [facility] 1.2840.114 350.1.13.10 4.2.7.2.686 [id number] [facility] 2018-03-17 00:00:00 2024-06-11 03:13:28 Orders Only Aurora Huntley Anita L [facility] 1.2.840.114 350.1.13.10 4.2.7.2.686 [id number] [facility] 2023-08-11 00:00:00 2024-06-11 02:18:59 Orders Only Doctor Unassigned, [place] Doctor Unassigned, [place] [facility] 1.2840.114 350.1.13.10 4.2.7.2.686 [id number] [facility] 2024-06-09 00:00:00 2024-06-09 13:16:07 Refill Lorenzo Puri [facility] 1.2.84.114 350.1.13.10 4.2.7.2.686 [id number] [facility] 2024-06-01 10:40:00 2024-06-01 11:01:24 Outpatient R JADE TO [facility] [id number] [facility] 2024-06-01 10:40:00 2024-06-01 11:01:24 [facility] 1.2.840.114 350.1.13.10 4.2.7.2.686 [id number] [facility] 2024-05-31 09:30:00 2024-05-31 09:30:00 Outpatient DALLIN OH CRAIG [facility] [id number] [facility] 2024-05-31 09:00:00 2024-05-31 09:00:00 Outpatient R SHAWANDA DUMAS [facility] [id number] [facility] 2024-05-27 09:30:00 2024-05-27 09:30:00 Outpatient R DALLIN LUIS CRAIG [facility] [id number] [facility] 2024-05-26 00:00:00 2024-05-26 14:47:41 Telephone Shawanda Dumas 1.2.840.1 88845.1.1 3.104.2.7 .3.885107 .8 [id number] [facility] 2024-05-26 00:00:00 2024-05-26 08:27:35 Telephone Shawanda Dumas 1.2.840.1 52704.1.1 3.104.2.7 .3.422295 .8 [id number] [facility] 2024-05-26 00:00:00 2024-05-26 00:00:00 Patient Secure Msg Doctor Unassigned, [place] 1..840.1 26717.1.1 3.104.2.7 .3.963044 .8 [id number] [facility] 2024-05-25 00:00:00 2024-05-25 15:52:52 Telephone Jade To 1.2.840.1 82320.1.1 3.104.2.7 .3.087861 .8 [id number] [facility] 2024-05-25 00:00:00 2024-05-25 15:08:26 Telephone Shawanda Dumas 1.2.840.1 95854.1.1 3.104.2.7 .3.984541 .8 [id number] [facility] 2024-05-25 11:30:00 2024-05-25 12:07:59 Outpatient R SHAWANDA DUMAS [facility] [id number] [facility] 2024-05-25 11:30:00 2024-05-25 12:07:59 Office Visit Shawanda Dumas 1.2.840.1 20020.1.1 3.104.2.7 .3.000918 .8 [id number] [facility] 2024-05-25 00:00:00 2024-05-25 00:00:00 Travel 1.2.840.1 41635.1.1 3.104.2.7 .3.055821 .8 1.2.840.114 350.1.13.10 4.2.7.3.698 084.8 [id number] [facility] 2024-05-24 08:52:27 2024-05-24 23:59:00 Hospital Encounter Jade To 1.2.840.1 99481.1.1 3.104.2.7 .3.380073 .8 [id number] [facility] 2024-05-24 08:52:20 2024-05-24 23:59:00 Hospital Encounter Jade To 1.2.840.1 11622.1.1 3.104.2.7 .3.602010 .8 [id number] [facility] 2024-05-24 08:52:13 2024-05-24 23:59:00 Hospital Encounter EdelJade 1.2.840.1 62380.1.1 3.104.2.7 .3.696768 .8 [id number] [facility] 2024-05-24 08:50:53 2024-05-24 08:51:00 Outpatient R EDELJOELFOX [facility] [id number] [facility] 2024-05-24 08:30:00 2024-05-24 08:51:00 Hospital Encounter Jade To 1.2.840.1 62339.1.1 3.104.2.7 .3.816585 .8 [id number] [facility] 2024-05-23 15:15:00 2024-05-23 16:05:58 Ancillary Visit Dallin LuisJose pedroa 1.2.840.1 80292.1.1 3.104.2.7 .3.910322 .8 [id number] [facility] 2024-05-23 00:00:00 2024-05-23 00:00:00 Travel 1.2.840.1 07072.1.1 3.104.2.7 .3.843388 .8 1.2.840.114 350.1.13.10 4.2.7.3.698 084.8 [id number] [facility] 2024-05-18 09:00:00 2024-05-18 09:00:00 Outpatient R SHAWANDA DUMAS [facility] [id number] [facility] 2024-05-17 13:45:00 2024-05-17 13:45:00 Outpatient R [facility] [id number] [facility] 2024-05-17 00:00:00 2024-05-17 00:00:00 Outpatient R JADE TO [facility] [id number] [facility] 2024-05-10 14:40:00 2024-05-10 15:11:05 Outpatient R JADE TO [facility] [id number] [facility] 2024-05-10 14:40:00 2024-05-10 15:11:05 Office Visit Jade To 1.2.840.1 55807.1.1 3.104.2.7 .3.145728 .8 [id number] [facility] 2024-05-10 10:30:00 2024-05-10 10:30:00 Outpatient R ERIN KIM [facility] [id number] [facility] 2024-05-10 00:00:00 2024-05-10 00:00:00 Travel 1.2.840.1 60750.1.1 3.104.2.7 .3.096313 .8 1.2.840.114 350.1.13.10 4.2.7.3.698 084.8 [id number] [facility] 2024-05-06 00:00:00 2024-05-09 09:22:01 Telephone Lorenzo Puri 1.2.840.1 71658.1.1 3.104.2.7 .3.724570 .8 [id number] [facility] 2024-04-18 00:00:00 2024-04-22 11:41:33 Refill Lorenzo Puri 1.2.840.1 32525.1.1 3.104.2.7 .3.695871 .8 [id number] [facility] 2024-03-01 00:00:00 2024-04-18 16:11:05 Telephone Shawanda Dumas 1.2.840.1 75459.1.1 3.104.2.7 .3.120395 .8 [id number] [facility] 2024-04-13 10:15:00 2024-04-13 11:08:02 Office Visit Bettye Parson 1.2.840.1 86549.1.1 3.104.2.7 .3.218062 .8 [id number] [facility] 2024-04-13 11:00:00 2024-04-13 11:00:00 Outpatient JADE PERDOMO [facility] [id number] [facility] 2024-04-13 00:00:00 2024-04-13 00:00:00 Travel 1.2.840.1 41418.1.1 3.104.2.7 .3.602891 .8 1.2.840.114 350.1.13.10 4.2.7.3.698 084.8 [id number] [facility] 2024-04-11 00:00:00 2024-04-11 23:59:00 Outpatient R HECTOR MICHAELS JAMES [facility] [id number] [facility] 2024-04-11 13:30:00 2024-04-11 14:29:19 Office Visit MichaelsHector 1.2.840.1 64546.1.1 3.104.2.7 .3.628274 .8 [id number] [facility] 2024-04-11 00:00:00 2024-04-11 00:00:00 Travel 1.2.840.1 57700.1.1 3.104.2.7 .3.585819 .8 1.2.840.114 350.1.13.10 4.2.7.3.698 084.8 [id number] [facility] 2024-04-05 14:45:00 2024-04-05 15:00:00 Hospital Admitting Clerk Visit Shawanda Burch, [facility] Lab Main 1.2.840.1 31983.1.1 3.104.2.7 .3.197591 .8 [id number] [facility] 2024-04-05 14:45:00 2024-04-05 14:45:00 Outpatient SHAWANDA DIAZ [facility] [id number] [facility] 2024-04-05 00:00:00 2024-04-05 00:00:00 Travel 1.2.840.1 79646.1.1 3.104.2.7 .3.720468 .8 1.2.840.114 350.1.13.10 4.2.7.3.698 084.8 [id number] [facility] 2024-03-21 08:00:00 2024-03-21 08:00:00 Outpatient R [facility] [id number] [facility] 2024-03-17 00:00:00 2024-03-17 13:44:31 Lorenzo Urias 1.2.840.1 71234.1.1 3.104.2.7 .3.541833 .8 [id number] [facility] 2024-03-14 13:30:00 2024-03-14 14:17:44 Outpatient R BETTYE PARSON [facility] [id number] [facility] 2024-03-14 13:30:00 2024-03-14 14:17:44 Nurse Visit Bettye Parson Nurse, Lkj Surgery Gu 1.2.840.1 97143.1.1 3.104.2.7 .3.914852 .8 [id number] [facility] 2024-03-14 00:00:00 2024-03-14 00:00:00 Travel 1.2.840.1 65718.1.1 3.104.2.7 .3.670568 .8 1.2.840.114 350.1.13.10 4.2.7.3.698 084.8 [id number] [facility] 2024-03-10 10:39:00 2024-03-10 17:30:00 Outpatient R BETTYE PARSON [facility] SUJerald [id number] [facility] 2024-03-10 10:39:00 2024-03-10 17:30:00 Hospital Encounter Bettye Parson 1.2.840.1 93578.1.1 3.104.2.7 .3.776279 .8 [id number] [facility] 2024-03-10 14:29:00 2024-03-10 16:36:00 Surgery Bettye Pasron 1.2.840.1 65104.1.1 3.104.2.7 .3.958889 .8 [id number] [facility] 2024-03-10 14:40:00 2024-03-10 16:05:00 Anesthesia Event [place] Brian 1.2.840.1 33368.1.1 3.104.2.7 .3.464143 .8 [id number] [facility] 2024-03-08 10:30:00 2024-03-08 11:03:30 Outpatient R BLAKE LORENZO [facility] [id number] [facility] 2024-03-08 10:30:00 2024-03-08 11:03:30 Office Visit Lorenzo Puri 1.2.840.1 21347.1.1 3.104.2.7 .3.901252 .8 [id number] [facility] 2024-03-08 00:00:00 2024-03-08 00:00:00 Travel 1.2.840.1 92418.1.1 3.104.2.7 .3.303509 .8 1.2.840.114 350.1.13.10 4.2.7.3.698 084.8 [id number] [facility] 2024-03-04 00:00:00 2024-03-04 00:00:00 Scanned Documents Doctor Unassigned, [place] 1.2.840.1 26866.1.1 3.104.2.7 .3.466051 .8 [id number] [facility] 2024-03-04 00:00:00 2024-03-04 00:00:00 Scanned Documents Doctor Unassigned, [place] 1.2.840.1 10868.1.1 3.104.2.7 .3.022225 .8 [id number] [facility] 2024-03-03 00:00:00 2024-03-03 14:25:05 Refill Lorenzo Puri 1.2.840.1 73622.1.1 3.104.2.7 .3.970786 .8 [id number] [facility] 2024-03-03 00:00:00 2024-03-03 11:24:52 Telephone Bettye Parson 1.2.840.1 94825.1.1 3.104.2.7 .3.208114 .8 [id number] [facility] 2024-03-03 00:00:00 2024-03-03 09:21:12 Telephone Bettye Parson 1.2.840.1 16791.1.1 3.104.2.7 .3.373221 .8 [id number] [facility] 2024-03-03 00:00:00 2024-03-03 00:00:00 Travel 1.2.840.1 90099.1.1 3.104.2.7 .3.963135 .8 1.2.840.114 350.1.13.10 4.2.7.3.698 084.8 [id number] [facility] 2024-03-02 14:00:00 2024-03-02 16:15:22 Outpatient R BETTYE PARSON [facility] [id number] [facility] 2024-03-02 14:00:00 2024-03-02 16:15:22 Office Visit Bettye Parson 2, Adc Surg Proc 1.2.840.1 61404.1.1 3.104.2.7 .3.257523 .8 [id number] [facility] 2024-03-02 13:30:00 2024-03-02 13:45:00 Hospital Admitting Clerk Visit Bettye Parson Pob, Adc Lab Main 1.2.840.1 86207.1.1 3.104.2.7 .3.775760 .8 [id number] [facility] 2024-03-02 00:00:00 2024-03-02 09:30:50 Telephone Shawanda Dumas 1.2.840.1 47944.1.1 3.104.2.7 .3.444334 .8 [id number] [facility] 2024-03-01 13:58:44 2024-03-01 23:59:00 Outpatient R SHAWANDA DUMAS [facility] [id number] [facility] 2024-03-01 13:58:44 2024-03-01 23:59:00 Hospital Encounter Shawanda Dumas 1.2.840.1 86633.1.1 3.104.2.7 .3.539452 .8 [id number] [facility] 2024-03-01 14:30:00 2024-03-01 15:00:00 Office Visit Shawanda Dumas 1.2.840.1 86285.1.1 3.104.2.7 .3.652972 .8 [id number] [facility] 2024-03-01 00:00:00 2024-03-01 00:00:00 Travel 1.2.840.1 01571.1.1 3.104.2.7 .3.328300 .8 1.2.840.114 350.1.13.10 4.2.7.3.698 084.8 [id number] [facility] 2024-02-25 00:00:00 2024-02-25 14:08:53 Telephone Shawanda Dumas 1.2.840.1 88722.1.1 3.104.2.7 .3.315691 .8 [id number] [facility] 2024-02-23 00:00:00 2024-02-23 13:48:27 Refill Kevin Mayes 1.2.840.1 54143.1.1 3.104.2.7 .3.792378 .8 [id number] [facility] 2024-02-12 00:00:00 2024-02-12 00:00:00 Scanned Documents Doctor Unassigned, [place] 1.2.840.1 50246.1.1 3.104.2.7 .3.750155 .8 [id number] [facility] 2024-02-10 11:15:00 2024-02-10 11:30:00 Hospital Admitting Clerk Visit Devante Wheeler, [facility] Lab Main 1.2.840.1 43342.1.1 3.104.2.7 .3.824742 .8 [id number] [facility] 2024-02-10 11:15:00 2024-02-10 11:15:00 Outpatient DEVANTE WEN [facility] [id number] [facility] 2024-02-03 14:30:00 2024-02-03 14:58:28 Office Visit Bettye Parson 1.2.840.1 86540.1.1 3.104.2.7 .3.610749 .8 [id number] [facility] 2024-02-03 14:30:00 2024-02-03 14:30:00 Outpatient BETTYE GARCÍA [facility] [id number] [facility] 2024-02-02 13:30:00 2024-02-02 13:34:20 Imm/Inj Visit Kyle Nguyen Nurse, [facility] 1.2.840.1 45828.1.1 3.104.2.7 .3.388075 .8 [id number] [facility] 2024-02-02 13:30:00 2024-02-02 13:30:00 Outpatient R KYLE NGUYEN [facility] [id number] [facility] 2024-02-02 00:00:00 2024-02-02 00:00:00 Travel 1.2.840.1 54825.1.1 3.104.2.7 .3.160599 .8 1.2.840.114 350.1.13.10 4.2.7.3.698 084.8 [id number] [facility] 2024-01-19 10:00:00 2024-01-19 10:00:00 Outpatient LORENZO ESTRADA [facility] [id number] [facility] 2024-01-05 15:15:00 2024-01-05 15:30:00 Hospital Admitting Clerk Visit Vaishnavi, Adc Lab Main Alexadary Shawanda Riggins, [facility] Lab Main [facility] PROFESSIO REPLACED BY [facility] BUILD[facility] 1..114 350.1.13.10 4.2.7.2.686 [id number] [facility] 2024-01-05 15:15:00 2024-01-05 15:15:00 Outpatient SHAWANDA DIAZ [facility] [id number] [facility] 2024-01-02 23:56:00 2024-01-03 04:01:00 Emergency X SOCORRO WILKINSON DONNELL [facility] [id number] [facility] 2024-01-02 23:56:00 2024-01-03 04:01:00 Emergency Socorro Wilkinson [facility] 1..114 350.1.13.10 4.2.7.2.686 [id number] 084 [id number] [facility] 2023-12-24 08:00:00 2023-12-24 09:16:11 Outpatient R HAILEY PAIZ [facility] [id number] [facility] 2023-12-24 08:00:00 2023-12-24 09:16:11 Office [address] Hailey Paiz [facility] ..114 350.1.13.10 4.2.7.2.686 [id number] 011 [id number] [facility] 2023-12-16 16:15:00 2023-12-16 16:51:49 Outpatient HECTOR BILL JAMES [facility] [id number] [facility] 2023-12-16 16:15:00 2023-12-16 16:51:49 Office Visit Hector Michaels [facility] 1..114 350.1.13.10 4.2.7.2.686 [id number] [facility] 2023-12-11 12:13:20 2023-12-11 23:59:00 Hospital Encounter Hector Michaels [facility] 1.2.840.114 350.1.13.10 4.2.7.2.686 [id number] [facility] 2023-12-11 12:13:19 2023-12-11 23:59:00 Outpatient R HECTOR MICHAELS JAMES [facility] [id number] [facility] 2023-12-04 11:00:00 2023-12-04 11:33:59 Outpatient R LORENZO PURI [facility] [id number] [facility] 2023-12-04 11:00:00 2023-12-04 11:33:59 Office Visit Lorenzo Puri [facility] BUILDING 1.2.840.114 350.1.13.10 4.2.7.2.686 [id number] [facility] 2023-12-02 16:45:00 2023-12-02 16:56:25 Outpatient R HECTOR MICHAELS JAMES [facility] [id number] [facility] 2023-12-02 16:45:00 2023-12-02 16:56:25 Office Visit Hector Michaels [facility] 1.2.840.114 350.1.13.10 4.2.7.2.686 [id number] [facility] 2023-12-02 15:30:00 2023-12-02 15:30:00 Outpatient R HECTOR MICHAELS JAMES [facility] [id number] [facility] 2023-12-02 15:30:00 2023-12-02 15:30:00 Outpatient R HECTOR MICHAELS JAMES [facility] [id number] [facility] 2023-11-20 11:45:00 2023-11-20 12:00:00 Hospital Admitting Clerk Visit Pob, Adc Lab Main Shawanda Burch [facility] PROFESSIO NAL BUILDING 1.2.840.114 350.1.13.10 4.2.7.2.686 [id number] [facility] 2023-11-20 11:45:00 2023-11-20 11:45:00 Outpatient R SHAWANDA BURCH [facility] [id number] [facility] 2023-10-28 16:15:00 2023-10-28 21:21:25 Outpatient HECTOR BILL JAMES [facility] [id number] [facility] 2023-10-28 16:15:00 2023-10-28 21:21:25 Office Visit Hector Michaels [facility] 1.2.840.114 350.1.13.10 4.2.7.2.686 [id number] 198 [id number] [facility] 2023-10-23 00:00:00 2023-10-28 10:43:24 Refill Kevin Mayes [facility] 1.2.840.114 350.1.13.10 4.2.7.2.686 [id number] [facility] 2023-10-26 00:00:00 2023-10-26 17:06:18 Transition of Care Lara Palmer 1.2.840.114 350.1.13.10 4.2.7.2.686 [id number] [facility] 2023-10-22 16:18:00 2023-10-23 12:27:00 Outpatient DELONTE LITTLEJOHN [facility] [id number] [facility] 2023-10-22 16:18:00 2023-10-23 12:27:00 Emergency Crystal Marks Jelani [facility] 1.2840.114 350.1.13.10 4.2.7.2.686 [id number] [id number] [facility] 2023-10-16 08:15:00 2023-10-16 08:22:19 Outpatient R DALLIN LUIS CRAIG [facility] [id number] [facility] 2023-10-16 08:15:00 2023-10-16 08:22:19 Office Visit Dallin Luis [facility] 1..114 350.1.13.10 4.2.7.2.686 [id number] 198 [id number] [facility] 2023-09-08 00:00:00 2023-10-10 18:19:19 Patient Secure Msg Doctor Unassigned, [place] [facility] 1..114 350.1.13.10 4.2.7.2.686 [id number] 019 [id number] [facility] 2023-10-04 23:04:00 2023-10-05 02:54:00 Emergency X SIENNA PUENTE [facility] ERT [id number] [facility] 2023-10-04 23:04:00 2023-10-05 02:54:00 Emergency Sienna Puente Tessa [facility] 1..114 350.1.13.10 4.2.7.2.686 [id number] 084 [id number] [facility] 2023-09-30 13:15:54 2023-09-30 23:59:00 Hospital Encounter LuisDallin Allegra [facility] MEDICAL OFFICE BUILDING 1.2.114 350.1.13.10 4.2.7.2.686 [id number] [facility] 2023-09-30 13:45:00 2023-09-30 14:57:46 Outpatient R DALLIN LUIS CRAIG [facility] [id number] [facility] 2023-09-30 13:45:00 2023-09-30 14:57:46 Office Visit Dallin Luis [facility] 1..840.114 350.1.13.10 4.2.7.2.686 [id number] [facility] 2023-09-30 14:15:00 2023-09-30 14:55:21 Outpatient R DALLIN LUIS CRAIG [facility] [id number] [facility] 2023-09-30 14:15:00 2023-09-30 14:30:00 Hospital Admitting Clerk Visit Lab, Florian Pastor Dallin Luis [facility] MEDICAL OFFICE BUILDING 1..840.114 350.1.13.10 4.2.7.2.686 [id number] [facility] 2023-09-10 08:30:00 2023-09-10 08:30:00 Outpatient R DALLIN LUIS CRAIG [facility] [id number] [facility] 2023-09-04 00:00:00 2023-09-04 13:45:55 Telephone gilberto [facility] MEDICAL OFFICE BUILDING 1..840.114 350.1.13.10 4.2.7.2.686 [id number] [facility] 2023-09-01 15:30:00 2023-09-01 16:01:30 Outpatient [id number] 2023-09-01 15:30:00 2023-09-01 16:01:30 [facility] OFF[facility] BUILD[facility] 1..840.114 350.1.13.10 4.2.7.2.686 [id number] 220 [id number] [facility] 2023-08-31 00:00:00 2023-09-01 15:54:26 Refill Michael Vazquez [facility] 1.2840.114 350.1.13.10 4.2.7.2.686 [id number] 220 [id number] [facility] 2023-08-13 00:00:00 2023-08-13 00:00:00 Telephone LauraLorenzo harmon [facility] MED[facility] OFFICE BUILD[facility] 1.84.114 350.1.13.10 4.2.7.2.686 [id number] 220 [id number] [facility] 2023-08-13 00:00:00 2023-08-13 00:00:00 [facility] 1.84.114 350.1.13.10 4.2.7.2.686 [id number] [facility] 2023-08-10 13:30:00 2023-08-10 13:43:26 Outpatient R HECTOR MICHAELS JAMES [facility] [id number] [facility] 2023-08-10 13:30:00 2023-08-10 13:43:26 Office Visit Hector Michaels [facility] 1.84.114 350.1.13.10 4.2.7.2.686 [id number] [facility] 2023-08-03 00:00:00 2023-08-03 00:00:00 Telephone MayesKevin [facility]RA[facility] 1.284.114 350.1.13.10 4.2.7.2.686 [id number] [facility] 2023-07-28 08:00:00 2023-07-28 08:00:00 Outpatient R [facility] [id number] [facility] 2023-07-19 00:00:00 2023-07-19 00:00:00 Patient Secure Msg Doctor Unassigned, [place] [facility] MED[facility] OFF[facility] BU[facility] 1..840.114 350.1.13.10 4.2.7.2.686 [id number] 220 [id number] [facility] 2023-07-17 10:45:00 2023-07-17 10:45:00 Hospital Admitting Clerk Visit Lab, Florian - Pastor Minergilberto [facility] MED[facility] OFF[facility] 1..840.114 350.1.13.10 4.2.7.2.686 [id number] [facility] 2023-07-17 10:45:00 2023-07-17 10:44:31 Outpatient R LORENZO PURI [facility] [id number] [facility] 2023-07-14 09:30:00 2023-07-14 10:27:57 Outpatient R LORENZO PURI [facility] [id number] [facility] 2023-07-14 09:30:00 2023-07-14 10:27:57 Office Visit [facility] OFF[facility] 1..840.114 350.1.13.10 4.2.7.2.686 [id number] [facility] 2023-07-13 00:00:00 2023-07-13 00:00:00 Refill Michael Vazquez [facility] ALEXANDER CAMPUSE?[facility] MEDICAL OFFICE BUILDING 1..840.114 350.1.13.10 4.2.7.2.686 [id number] [facility] 2023-06-29 00:00:00 2023-06-29 00:00:00 Refill Gerber [facility] EFRAÍN?[facility] 1.2840.114 350.1.13.10 4.2.7.2.686 [id number] 220 [id number] [facility] 2023-06-21 00:00:00 2023-06-21 00:00:00 [facility] EFRAÍN?[facility] 1.2840.114 350.1.13.10 4.2.7.2.686 [id number] 220 [id number] [facility] 2023-06-17 00:00:00 2023-06-17 00:00:00 Refill Hasmukh Higgins [facility] EFRA[facility] MED[facility] OFF[facility] BUILD[facility] 1.2840.114 350.1.13.10 4.2.7.2.686 [id number] [facility] 2023-06-01 13:30:00 2023-06-01 14:13:46 Outpatient R HECTOR MICHAELS [facility] [id number] [facility] 2023-06-01 13:30:00 2023-06-01 14:13:46 Office Visit Hector Michaels [facility] [place] [facility] 1.2840.114 350.1.13.10 4.2.7.2.686 [id number] [facility] 2023-05-26 00:00:00 2023-05-26 00:00:00 Telephone Hector Michaels [facility] 1.2840.114 350.1.13.10 4.2.7.2.686 [id number] [facility] 2023-05-25 00:00:00 2023-05-25 00:00:00 Transition of Care Lara Palmer 1.2.840.114 350.1.13.10 4.2.7.2.686 [id number] [facility] 2023-05-20 06:52:00 2023-05-22 12:49:00 Inpatient R HECTOR MICHAELS HECTOR [facility] SOR [id number] [facility] 2023-05-20 06:52:00 2023-05-22 12:49:00 Hospital Encounter Xenia Replaced by [facility] 1.840.114 350.1.13.10 4.2.7.2.686 [id number] [facility] 2023-05-20 08:40:00 2023-05-20 13:21:00 [facility].0.114 350.1.13.10 4.2.7.2.686 [id number] [facility] 2023-05-20 00:00:00 2023-05-20 00:00:00 Orders Only Doctor Unassigned, [place] [facility] 1.2840.114 350.1.13.10 4.2.7.2.686 [id number] [facility] 2023-05-19 10:00:00 2023-05-19 10:15:00 Hospital Admitting Clerk Visit Pob, Adc Lab Main Fritz Escobar [facility] 1.0.114 350.1.13.10 4.2.7.2.686 [id number] [facility] 2023-05-19 10:00:00 2023-05-19 10:00:00 Outpatient R FRITZ ESCOBAR [facility] [id number] [facility] 2023-05-18 13:05:00 2023-05-18 13:10:00 Pre-Anesth esia Evaluation Call, [facility] Phone [facility] 1.0.114 350.1.13.10 4.2.7.2.686 [id number] [facility] 2023-05-18 00:00:00 2023-05-18 00:00:00 Telephone Gerber [facility] 1.2.840.114 350.1.13.10 4.2.7.2.686 [id number] 220 [id number] [facility] 2023-05-16 00:00:00 2023-05-16 00:00:00 Nurse Triage Yazmin Bahena [facility] 1.2.840.114 350.1.13.10 4.2.7.2.686 [id number] [id number] [facility] 2023-05-13 00:00:00 2023-05-13 00:00:00 Refill [facility] 1..840.114 350.1.13.10 4.2.7.2.686 [id number] 220 [id number] [facility] 2023-05-13 00:00:00 2023-05-13 00:00:00 Refill Gerber [facility] 1.2.840.114 350.1.13.10 4.2.7.2.686 [id number] 220 [id number] [facility] 2023-05-07 11:17:24 2023-05-07 23:59:00 Outpatient R JADE TO [facility] [id number] [facility] 2023-05-07 11:17:24 2023-05-07 23:59:00 Hospital Encounter Jade To [facility] 1.2840.114 350.1.13.10 4.2.7.2.686 [id number] [facility] 2023-05-07 12:00:00 2023-05-07 12:15:00 Hospital Admitting Clerk Visit Pob, Adc Lab Main Jade To Michael [facility] N[facility] 1.2840.114 350.1.13.10 4.2.7.2.686 [id number] 353 [id number] [facility] 2023-05-01 00:00:00 2023-05-01 00:00:00 Telephone Hector Michaels [facility] 1.2.840.114 350.1.13.10 4.2.7.2.686 [id number] [facility] 2023-04-28 00:00:00 2023-04-28 00:00:00 Telephone Nathaniel Mayesrich [facility] MED[facility] OFF[facility] BUILD[facility] 1.2840.114 350.1.13.10 4.2.7.2.686 [id number] 220 [id number] [facility] 2023-04-24 00:00:00 2023-04-24 00:00:00 Michael Hernandes [facility] MEDICAL OFFICE BUILDING 1.2840.114 350.1.13.10 4.2.7.2.686 [id number] 044 [id number] [facility] 2023-04-23 11:15:00 2023-04-23 11:45:00 Office Visit Hector Michaels [facility] 1.2840.114 350.1.13.10 4.2.7.2.686 [id number] 198 [id number] [facility] 2023-04-23 11:15:00 2023-04-23 11:15:00 Outpatient R HECTOR MICHAELS [facility] [id number] [facility] 2023-04-16 00:00:00 2023-04-16 00:00:00 Orders Only Doctor Unassigned, [place] [facility] 1.2.840.114 350.1.13.10 4.2.7.2.686 [id number] [id number] [facility] 2023-04-13 14:40:00 2023-04-13 14:40:00 Office Visit Taylor Em [facility] 1.2.840.114 350.1.13.10 4.2.7.2.686 [id number] [facility] 2023-04-13 14:40:00 2023-04-13 14:23:58 Outpatient R TAYLOR EM [facility] [id number] [facility] 2023-04-13 00:00:00 2023-04-13 00:00:00 Refill Gerber Kevin [facility] MED[facility] OFFICE BUILD[facility] 1..840.114 350.1.13.10 4.2.7.2.686 [id number] 220 [id number] [facility] 2023-03-12 00:00:00 2023-03-12 00:00:00 Orders Only Doctor Unassigned, [place] [facility] 1.2.840.114 350.1.13.10 4.2.7.2.686 [id number] [id number] [facility] 2023-03-06 09:45:00 2023-03-06 10:01:12 Outpatient R DALLIN LUIS CRAIG [facility] [id number] [facility] 2023-03-06 09:45:00 2023-03-06 10:01:12 Office Visit Dallin Luis [facility] OFF[facility] 1..840.114 350.1.13.10 4.2.7.2.686 [id number] [facility] 2023-03-03 07:36:06 2023-03-03 23:59:00 Outpatient R DALLIN LUIS CRAIG [facility] [id number] [facility] 2023-03-03 07:36:06 2023-03-03 23:59:00 Hospital Encounter Dallin Luis [facility] 1.2.840.114 350.1.13.10 4.2.7.2.[id number] [facility] 2023-02-26 13:38:20 2023-02-26 23:59:00 Hospital Encounter Dallin Luis [facility] 1.2.840.114 350.1.13.10 4.2.7.2.[id number] [facility] 2023-02-26 13:00:00 2023-02-26 13:06:24 Outpatient R DALLIN LUIS CRAIG [facility] [id number] [facility] 2023-02-26 13:00:00 2023-02-26 13:06:24 Office Visit Dallin Luis Allegra [facility] MEDICAL OFFICE BUILDING 1.2.840.114 350.1.13.10 4.2.7.2.686 [id number] [facility] 2023-02-25 00:00:00 2023-02-25 00:00:00 Orders Only Doctor Unassigned, [place] [facility] 1.2.840.114 350.1.13.10 4.2.7.2.686 [id number] [id number] [facility] 2023-01-08 09:12:47 2023-01-08 23:59:00 Outpatient R ERIN KIM [facility] [id number] [facility] 2023-01-08 09:00:00 2023-01-08 23:59:00 Hospital Encounter Js Erin [facility] 1.2.840.114 350.1.13.10 4.2.7.2.686 [id number] [facility] 2022-12-23 09:30:00 2022-12-23 09:30:00 Outpatient R ERIN KIM [facility] [id number] [facility] 2022-12-19 10:00:00 2022-12-19 10:47:25 Outpatient R ERIN KIM [facility] [id number] [facility] 2022-12-19 10:00:00 2022-12-19 10:47:25 [facility] 1.2840.114 350.1.13.10 4.2.7.2.686 [id number] [facility] 2022-12-16 08:00:00 2022-12-16 08:00:00 Outpatient ERIN MADERA [facility] [id number] [facility] 2022-12-10 09:40:00 2022-12-10 12:19:00 Emergency X MALGORZATA NGUYEN [facility] ERT [id number] [facility] 2022-12-10 09:40:00 2022-12-10 12:19:00 Emergency Malgorzata Nguyen [facility] 1.2840.114 350.1.13.10 4.2.7.2.686 [id number] [id number] [facility] 2022-11-18 00:00:00 2022-11-18 00:00:00 Orders Only Doctor Unassigned, [place] [facility] 1.2840.114 350.1.13.10 4.2.7.2.686 [id number] [id number] [facility] 2022-11-14 00:00:00 2022-11-14 00:00:00 Orders Only Doctor Unassigned, [place] [facility] 1.2840.114 350.1.13.10 4.2.7.2.686 [id number] [id number] [facility] 2022-11-11 20:49:00 2022-11-13 11:00:00 Outpatient X OMAR ALMEIDA [facility] [id number] [facility] 2022-11-11 20:49:00 2022-11-13 11:00:00 Emergency Socorro Wilkinson Mohammad A. [facility] 1.2.840.114 350.1.13.10 4.2.7.2.686 [id number] [id number] [facility] 2022-11-11 00:00:00 2022-11-11 00:00:00 Orders Only Doctor Unassigned, [place] [facility] 1.2840.114 350.1.13.10 4.2.7.2.686 [id number] 009 [id number] [facility] 2022-11-06 00:00:00 2022-11-06 00:00:00 Telephone [facility]es [facility] MEDICAL OFFICE BUILDING 1.2840.114 350.1.13.10 4.2.7.2.686 [id number] 220 [id number] [facility] 2022-10-09 00:00:00 2022-10-09 00:00:00 Telephone [facility]es [facility] MEDICAL OFF[facility] BUILD[facility] 1.2840.114 350.1.13.10 4.2.7.2.686 [id number] 220 [id number] [facility] 2022-10-06 00:00:00 2022-10-06 00:00:00 Telephone Gerber [facility] MEDICAL OFFICE BUILD[facility] 1.2840.114 350.1.13.10 4.2.7.2.686 [id number] 044 [id number] [facility] 2022-10-05 13:33:00 2022-10-05 15:26:00 Emergency SANDRA WEINBERG [facility] ERT [id number] [facility] 2022-10-05 13:33:00 2022-10-05 15:26:00 Emergency Sandra Eason [facility] 1.2840.114 350.1.13.10 4.2.7.2.686 [id number] [id number] [facility] 2022-09-30 09:00:00 2022-09-30 11:29:24 Outpatient R GERBER [facility] [id number] [facility] 2022-09-30 09:00:00 2022-09-30 11:29:24 Office Visit Gerber [facility] MEDICAL OFFICE BUILDING 1.2840.114 350.1.13.10 4.2.7.2.686 [id number] 220 [id number] [facility] 2022-09-30 10:00:00 2022-09-30 10:15:00 Hospital Admitting Clerk Visit Lab, Ang - Db Gerber [facility] MEDICAL OFFICE BUILDING 1.2840.114 350.1.13.10 4.2.7.2.686 [id number] 353 [id number] [facility] 2022-09-29 00:00:00 2022-09-29 00:00:00 Orders Only Doctor Unassigned, [place] [facility] 1.2840.114 350.1.13.10 4.2.7.2.686 [id number] [id number] [facility] 2022-08-29 00:00:00 2022-08-29 00:00:00 Orders Only Doctor Unassigned, [place] [facility] 1.2840.114 350.1.13.10 4.2.7.2.686 [id number] 009 [id number] [facility] 2022-08-25 00:00:00 2022-08-25 00:00:00 Telephone [facility] MEDICAL OFFICE BUILDING 1.2840.114 350.1.13.10 4.2.7.2.686 [id number] 220 [id number] [facility] 2022-08-20 00:00:00 2022-08-20 00:00:00 Orders Only Doctor Unassigned, [place] [facility] 1.2.840.114 350.1.13.10 4.2.7.2.686 [id number] 009 [id number] [facility] 2022-07-22 00:00:00 2022-07-22 00:00:00 Telephone Mayes [facility] [place]?[facility] MEDICAL OFFICE BUILDING 1.2.840.114 350.1.13.10 4.2.7.2.686 [id number] 220 [id number] [facility] 2022-07-01 00:00:00 2022-07-01 00:00:00 Telephone Gerber [facility] [place]?[facility] MEDICAL OFFICE BUILDING 1.2.840.114 350.1.13.10 4.2.7.2.686 [id number] 220 [id number] [facility] 2022-06-30 00:00:00 2022-06-30 00:00:00 Refill Gerber [facility] [place]?[facility] MEDICAL OFFICE BUILDING 1.2840.114 350.1.13.10 4.2.7.2.686 [id number] 220 [id number] [facility] 2022-06-23 00:00:00 2022-06-23 00:00:00 Refill Esha Orourke [facility] [place]?[facility] MEDICAL OFFICE BUILDING 1.2840.114 350.1.13.10 4.2.7.2.686 [id number] 220 [id number] [facility] 2022-06-02 00:00:00 2022-06-02 00:00:00 Refill Gerber [facility] [place]?[facility] MEDICAL OFFICE BUILDING 1.2840.114 350.1.13.10 4.2.7.2.686 [id number] 044 [id number] [facility] 2022-05-08 09:30:00 2022-05-08 09:30:00 Outpatient R CHESTER WALTERS [facility] [id number] [facility] 2022-04-18 00:00:00 2022-04-18 00:00:00 [facility] 1.2.840.114 350.1.13.10 4.2.7.2.686 [id number] 220 [id number] [facility] 2022-03-28 10:00:00 2022-03-28 10:19:20 Outpatient R TOBI [facility] [id number] [facility] 2022-03-28 10:00:00 2022-03-28 10:19:20 Office Visit Tobi [facility] [place]?YAEL [facility]APP MEDICAL OFFICE BUILDING 1..840.114 350.1.13.10 4.2.7.2.686 [id number] 220 [id number] [facility] 2022-03-28 00:00:00 2022-03-28 00:00:00 Orders Only Doctor Unassigned, [place] [facility] 1.2.840.114 350.1.13.10 4.2.7.2.686 [id number] [id number] [facility] 2022-03-27 08:00:00 2022-03-27 08:00:00 Outpatient R CHESTER [facility] [id number] [facility] 2022-03-26 00:00:00 2022-03-26 00:00:00 Refill Tobi [facility] [place]?[facility]EL [facility] MEDICAL OFFICE BUILDING 1..840.114 350.1.13.10 4.2.7.2.686 [id number] 220 [id number] [facility] 2022-03-21 00:00:00 2022-03-21 00:00:00 Refill Tobi [facility] [place]?[facility]EL [facility] MEDICAL OFF[facility] BUILDING 1.2.840.114 350.1.13.10 4.2.7.2.686 [id number] 220 [id number] [facility] 2022-03-11 11:17:45 2022-03-11 23:59:00 Hospital Encounter Natasha Chester [facility] 1.2.840.114 350.1.13.10 4.2.7.2.686 [id number] [facility] 2022-03-11 11:15:00 2022-03-11 11:30:00 Hospital Admitting Clerk Visit Pob, Adc Lab Main Yesi Waltersokadelaida [facility] BUILDING 1.2.840.114 350.1.13.10 4.2.7.2.686 [id number] 353 [id number] [facility] 2022-03-11 09:30:00 2022-03-11 10:34:57 Outpatient R WALTERS [facility] [id number] [facility] 2022-03-11 09:30:00 2022-03-11 10:34:57 Office Visit Chester Walters [facility] BUILDING 1.2.840.114 350.1.13.10 4.2.7.2.686 [id number] [id number] [facility] 2022-03-11 00:00:00 2022-03-11 00:00:00 Telephone Chester Walters [facility] 1.2.840.114 350.1.13.10 4.2.7.2.686 [id number] 084 [id number] [facility] 2022-03-10 00:00:00 2022-03-10 00:00:00 Orders Only Doctor Unassigned, [place] [facility] 1.2.840.114 350.1.13.10 4.2.7.2.686 [id number] [id number] [facility] 2022-03-06 00:00:00 2022-03-06 00:00:00 Orders Only Doctor Unassigned, [place] [facility] 1.2.840.114 350.1.13.10 4.2.7.2.686 [id number] [id number] [facility] 2022-03-04 00:00:00 2022-03-04 00:00:00 [facility] 1.2840.114 350.1.13.10 4.2.7.2.686 [id number] 220 [id number] [facility] 2022-03-03 00:00:00 2022-03-03 00:00:00 Refill Tobi [facility] [place]?[facility] MEDICAL OFFICE BUILDING 1.2840.114 350.1.13.10 4.2.7.2.686 [id number] 220 [id number] [facility] 2022-03-01 00:00:00 2022-03-01 00:00:00 Refill Tobi [facility] [place]?[facility] MEDICAL OFFICE BUILDING 1.2840.114 350.1.13.10 4.2.7.2.686 [id number] 220 [id number] [facility] 2022-02-25 00:00:00 2022-02-25 00:00:00 Refill Tobi [facility] [place]?[facility] MEDICAL OFFICE BUILDING 1.2840.114 350.1.13.10 4.2.7.2.686 [id number] 220 [id number] [facility] 2022-02-17 00:00:00 2022-02-17 00:00:00 Refparesh Orourke [facility] [place]?[facility] MEDICAL OFFICE BUILDING 1.2840.114 350.1.13.10 4.2.7.2.686 [id number] 220 [id number] [facility] 2022-02-05 00:00:00 2022-02-05 00:00:00 [facility] MEDICAL OFFICE BUILDING 1.2840.114 350.1.13.10 4.2.7.2.686 [id number] 220 [id number] [facility] 2022-02-04 00:00:00 2022-02-04 00:00:00 Telephone Tobi [facility] MEDICAL OFFICE BUILDING 1.2840.114 350.1.13.10 4.2.7.2.686 [id number] 220 [id number] [facility] 2022-02-03 09:30:00 2022-02-03 09:30:00 Outpatient CHESTER JONAS [facility] [id number] [facility] 2022-01-08 19:20:00 2022-01-08 19:58:00 Emergency X SANDRA EASON [facility] ERT [id number] [facility] 2022-01-08 19:20:00 2022-01-08 19:58:00 Emergency Sandra Eason [facility] 1.84.114 350.1.13.10 4.2.7.2.686 [id number] 084 [id number] [facility] 2022-01-07 00:00:00 2022-01-07 00:00:00 Telephone Kevin Mayes [facility] MEDICAL OFFICE BUILDING 1.2.840.114 350.1.13.10 4.2.7.2.686 [id number] 220 [id number] [facility] 2021-12-12 00:00:00 2021-12-12 00:00:00 Telephone Esha Orourke [facility] EFRA[place]N?[facility] MEDICAL OFFICE BUILDING 1.2.840.114 350.1.13.10 4.2.7.2.686 [id number] 220 [id number] [facility] 2021-12-12 00:00:00 2021-12-12 00:00:00 Orders Only Doctor Unassigned, [place] [facility] 1.2840.114 350.1.13.10 4.2.7.2.686 [id number] 009 [id number] [facility] 2021-12-04 00:00:00 2021-12-04 00:00:00 Orders Only Doctor Unassigned, [place] [facility] 1.2840.114 350.1.13.10 4.2.7.2.686 [id number] 009 [id number] [facility] 2021-11-25 00:00:00 2021-11-25 00:00:00 Telephone Tobi [facility] MEDICAL OFFICE BUILDING 1.284.114 350.1.13.10 4.2.7.2.686 [id number] 220 [id number] [facility] 2021-11-15 09:30:00 2021-11-15 10:00:00 Office Visit [facility] MEDICAL OFFICE BUILDING 1.284.114 350.1.13.10 4.2.7.2.686 [id number] 220 [id number] [facility] 2021-11-15 09:30:00 2021-11-15 09:30:00 [facility] [id number] [facility] 2021-10-21 00:00:00 2021-10-21 00:00:00 Refill Jade [facility] 1.284.114 350.1.13.10 4.2.7.2.686 [id number] [id number] [facility] 2021-10-10 00:00:00 2021-10-10 00:00:00 Refill Michael Vazquez [facility] PAV[facility] 1.2840.114 350.1.13.10 4.2.7.2.686 [id number] 220 [id number] [facility] 2021-09-16 00:00:00 2021-09-16 00:00:00 Orders Only Doctor Unassigned, [place] [facility] 1.2840.114 350.1.13.10 4.2.7.2.686 [id number] [id number] [facility] 2021-09-06 00:00:00 2021-09-06 00:00:00 Refill Tobi [facility] MEDICAL OFFICE BUILDING 1.2840.114 350.1.13.10 4.2.7.2.686 [id number] 220 [id number] [facility] 2021-08-08 12:00:00 2021-08-08 12:15:00 Hospital Admitting Clerk Visit Lab, Florian Orourke [facility] MEDICAL OFFICE BUILDING 1.284.114 350.1.13.10 4.2.7.2.686 [id number] 353 [id number] [facility] 2021-08-08 12:00:00 2021-08-08 12:00:00 Outpatient [facility] [id number] [facility] 2021-08-08 12:00:00 2021-08-08 12:00:00 Outpatient Grady [facility] [id number] [facility] 2021-08-08 00:00:00 2021-08-08 00:00:00 Telephone Tobi [facility] 1.2.114 350.1.13.10 4.2.7.2.686 [id number] 220 [id number] [facility] 2021-08-08 00:00:00 2021-08-08 00:00:00 Telephone Tobi [facility] MEDICAL OFFICE BUILDING 1.2.840.114 350.1.13.10 4.2.7.2.686 [id number] 220 [id number] [facility] 2021-07-31 00:00:00 2021-07-31 00:00:00 Telephone Mayes [facility] EFRAÍN?[facility] MEDICAL OFFICE BUILDING 1.2840.114 350.1.13.10 4.2.7.2.686 [id number] 220 [id number] [facility] 2021-07-30 00:00:00 2021-07-30 00:00:00 Telephone Mayes [facility] EF[place]N?[facility] 1.2840.114 350.1.13.10 4.2.7.2.686 [id number] 220 [id number] [facility] 2021-07-30 00:00:00 2021-07-30 00:00:00 Orders Only Doctor Unassigned, [place] [facility] 1.2840.114 350.1.13.10 4.2.7.2.686 [id number] [id number] [facility] 2021-07-16 13:30:00 2021-07-16 13:45:00 Hospital Admitting Clerk Visit Lab, Florian [facility] MED[facility] OFFICE BUILDING 1.2840.114 350.1.13.10 4.2.7.2.686 [id number] 353 [id number] [facility] 2021-07-16 13:00:00 2021-07-16 13:32:25 [facility] OFF[facility]ILD[facility] 1.2840.114 350.1.13.10 4.2.7.2.686 [id number] [facility] 2021-07-16 13:00:00 2021-07-16 13:32:25 Outpatient R [facility]BI [facility] [id number] [facility] 2021-07-16 13:30:00 2021-07-16 13:30:00 [facility] [id number] 2021-07-16 13:00:00 2021-07-16 13:00:00 [facility] [id number] [facility] 2021-07-16 00:00:00 2021-07-16 00:00:00 Orders Only Doctor Unassigned, [place] [facility] 1.840.114 350.1.13.10 4.2.7.2.686 [id number] [facility] 2021-07-15 00:00:00 2021-07-15 00:00:00 Refill [facility] [place] MED[facility] OFF[facility] 1..840.114 350.1.13.10 4.2.7.2.686 [id number] [facility] 2021-04-30 00:00:00 2021-04-30 00:00:00 Orders Only Doctor Unassigned, [place] [facility] 1.2840.114 350.1.13.10 4.2.7.2.686 [id number] [id number] [facility] 2021-04-22 00:00:00 2021-04-22 00:00:00 Refill Jade To [facility] NAL BUILDING 1..840.114 350.1.13.10 4.2.7.2.686 [id number] [facility] 2021-04-17 13:30:00 2021-04-17 14:37:39 Outpatient R GERBER [facility] [id number] [facility] 2021-04-17 13:30:00 2021-04-17 14:37:39 Office Visit Gerber [facility] [place]?[facility] OFF[facility] 1.2.840.114 350.1.13.10 4.2.7.2.686 [id number] [facility] 2021-04-17 13:30:00 2021-04-17 14:37:39 Outpatient R GERBER [facility] [id number] [facility] 2021-04-17 13:30:00 2021-04-17 13:30:00 Outpatient R GERBER [facility] [id number] [facility] 2021-04-17 00:00:00 2021-04-17 00:00:00 Orders Only Doctor Unassigned, [place] [facility] 1.840.114 350.1.13.10 4.2.7.2.686 [id number] [facility] 2021-03-02 00:00:00 2021-03-02 00:00:00 [facility] 1.840.114 350.1.13.10 4.2.7.2.686 [id number] [facility] 2021-02-27 00:00:00 2021-02-27 00:00:00 Refill [facility] 1..840.114 350.1.13.10 4.2.7.2.686 [id number] [facility] 2021-02-22 11:49:09 2021-02-22 12:44:00 [facility] 1..840.114 350.1.13.10 4.2.7.2.686 [id number] [facility] 2021-02-22 11:30:00 2021-02-22 12:44:00 [facility] [id number] [facility] 2021-02-22 12:25:36 2021-02-22 12:40:36 Hospital Admitting Clerk Visit Lab, Folrian Baumann [facility] [place] 1.2.114 350.1.13.10 4.2.7.2.686 [id number] [facility] 2021-02-22 12:30:00 2021-02-22 12:30:00 Outpatient R ESHA OROURKE [facility] [id number] [facility] 2021-02-18 00:00:00 2021-02-18 00:00:00 Telephone GerberKevin [facility] 1.2.114 350.1.13.10 4.2.7.2.686 [id number] [facility] 2021-01-29 17:52:35 2021-01-29 18:12:35 [facility] 1.114 350.1.13.10 4.2.7.2.686 [id number] [facility] 2021-01-29 18:00:00 2021-01-29 18:00:00 Outpatient R [facility] [id number] [facility] 2021-01-27 00:00:00 2021-01-27 00:00:00 Letter (Out) Nguyen Torres [facility] 1..114 350.1.13.10 4.2.7.2.686 [id number] [id number] [facility] 2021-01-26 15:49:04 2021-01-26 16:16:10 Urgent Care Eladio [facility] 1.2.114 350.1.13.10 4.2.7.2.686 [id number] 370 [id number] [facility] 2021-01-26 16:00:00 2021-01-26 16:00:00 Outpatient R HERNÁN HENDRICKS [facility] [id number] [facility] 2021-01-26 00:00:00 2021-01-26 00:00:00 Orders Only Doctor Unassigned, [place] [facility] 1..840.114 350.1.13.10 4.2.7.2.686 [id number] [id number] [facility] 2021-01-24 00:00:00 2021-01-24 00:00:00 Refill Kevin Mayes [facility] Building 1..840.114 350.1.13.10 4.2.7.2.686 [id number] 220 [id number] [facility] 2020-12-05 13:45:00 2020-12-05 14:05:32 Outpatient R NORBERTO [facility] [id number] [facility] 2020-12-05 13:00:59 2020-12-05 14:05:32 Office Visit Norberto [facility] 1..840.114 350.1.13.10 4.2.7.2.686 [id number] [facility] 2020-12-05 13:45:00 2020-12-05 13:45:00 Outpatient R NORBERTO [facility] [id number] [facility] 2020-12-05 00:00:00 2020-12-05 00:00:00 Telephone Norberto [facility] Building 1..840.114 350.1.13.10 4.2.7.2.686 [id number] [facility] 2020-11-30 00:00:00 2020-11-30 00:00:00 Orders Only Doctor Unassigned, [place] [facility] 1.20.114 350.1.13.10 4.2.7.2.686 [id number] [id number] [facility] 2020-11-06 00:00:00 2020-11-06 00:00:00 Refill Kevin Mayes [facility] 1.20.114 350.1.13.10 4.2.7.2.686 [id number] 220 [id number] [facility] 2020-10-29 00:00:00 2020-10-29 00:00:00 Refill Edel Jade [facility] 1.2.114 350.1.13.10 4.2.7.2.686 [id number] 059 [id number] [facility] 2020-10-24 10:00:00 2020-10-24 10:00:00 Outpatient R GERBER KEVIN [facility] [id number] [facility] 2020-08-28 10:00:00 2020-08-28 10:00:00 Outpatient R PAIGE PIKE [facility] [id number] [facility] 2020-08-27 00:00:00 2020-08-27 00:00:00 Telephone Gerber [facility] 1.284.114 350.1.13.10 4.2.7.2.686 [id number] 220 [id number] [facility] 2020-08-27 00:00:00 2020-08-27 00:00:00 Telephone Gerber [facility] 1.2.114 350.1.13.10 4.2.7.2.686 [id number] 220 [id number] [facility] 2020-08-27 00:00:00 2020-08-27 00:00:00 Orders Only Doctor Unassigned, [place] [facility] 1.2.840.114 350.1.13.10 4.2.7.2.686 [id number] [id number] [facility] 2020-08-06 00:00:00 2020-08-06 00:00:00 Refill Paige Pike [facility] Professio nal Building 1.2.840.114 350.1.13.10 4.2.7.2.686 [id number] 204 [id number] [facility] 2020-08-01 00:00:00 2020-08-01 00:00:00 Refill Kevin Mayes [facility] Building 1.2.840.114 350.1.13.10 4.2.7.2.686 [id number] 220 [id number] [facility] 2020-07-30 00:00:00 2020-07-30 00:00:00 Refill Jade To [facility] Building 1.2.840.114 350.1.13.10 4.2.7.2.686 [id number] 059 [id number] [facility] 2020-07-25 00:00:00 2020-07-25 00:00:00 Patient Outreach BacilioCaroline Sosa Davis 1.2.840.114 350.1.13.10 4.2.7.2.686 [id number] 403 [id number] [facility] 2020-07-25 00:00:00 2020-07-25 00:00:00 Refill Edel Joelfox [facility] Building 1.2.840.114 350.1.13.10 4.2.7.2.686 [id number] 059 [id number] [facility] 2020-07-24 00:00:00 2020-07-24 00:00:00 Transition of Care Genesis Hammonds 1.2.840.114 350.1.13.10 4.2.7.2.686 [id number] 403 [id number] [facility] 2020-07-19 12:33:00 2020-07-21 11:58:00 Hospital Encounter Socorro Wilkinson Yaman [facility] 1..114 350.1.13.10 4.2.7.2.686 [id number] [id number] [facility] 2020-07-19 12:33:00 2020-07-21 11:58:00 Inpatient SILVIO DÍAZ [facility] TRICIA [id number] [facility] 2020-07-14 08:18:03 2020-07-14 08:48:03 Nurse Visit Therapy, Hugh Malone [facility] Surgical [place] 1.114 350.1.13.10 4.2.7.2.686 [id number] 053 [id number] [facility] 2020-07-14 08:00:00 2020-07-14 08:00:00 Outpatient HUGH MARTINS [facility] [id number] [facility] 2020-07-12 00:00:00 2020-07-12 00:00:00 Telephone Pcp, Patient Does Not Have A [facility] 1.114 350.1.13.10 4.2.7.2.686 [id number] 370 [id number] [facility] 2020-07-12 00:00:00 2020-07-12 00:00:00 Telephone Pcp, Patient Does Not Have A [facility] 1..114 350.1.13.10 4.2.7.2.686 [id number] [facility] 2020-07-11 14:38:38 2020-07-11 14:58:38 Laboratory Only Lab, Adc Fam Chelsey Hu [facility] Professio nal Office Building One 1.114 350.1.13.10 4.2.7.2.686 [id number] [facility] 2020-07-11 14:20:00 2020-07-11 14:20:00 Outpatient R CHELSEY CARD [facility] [id number] [facility] 2020-07-05 11:15:00 2020-07-05 11:15:00 Outpatient R ESSIE GUERRA [facility] [id number] [facility] 2020-06-20 11:00:00 2020-06-20 11:00:00 Outpatient R JOEL TOTAMRA [facility] [id number] [facility] 2020-06-20 00:00:00 2020-06-20 00:00:00 Case Management Paige Pike [facility] 1.2.840.114 350.1.13.10 4.2.7.2.686 [id number] [facility] 2020-05-21 00:00:00 2020-05-21 00:00:00 Telephone Gerber [facility] 1.2.840.114 350.1.13.10 4.2.7.2.686 [id number] 220 [id number] [facility] 2020-05-08 10:18:13 2020-05-08 11:30:43 [facility] 1.2.840.114 350.1.13.10 4.2.7.2.686 [id number] 220 [id number] [facility] 2020-05-08 10:30:00 2020-05-08 10:30:00 Outpatient R GERBER [facility] [id number] [facility] 2020-05-08 00:00:00 2020-05-08 00:00:00 Refill Jade To [facility] 1.2.840.114 350.1.13.10 4.2.7.2.686 [id number] 059 [id number] [facility] 2020-04-25 00:00:00 2020-04-25 00:00:00 [facility] Building 1.2.840.114 350.1.13.10 4.2.7.2.686 [id number] 220 [id number] [facility] 2020-03-06 00:00:00 2020-03-06 00:00:00 [facility] Building 1.2.840.114 350.1.13.10 4.2.7.2.686 [id number] 220 [id number] [facility] 2020-02-08 21:04:00 2020-02-08 23:51:00 Emergency Myrna Dumas [facility] 1.2.840.114 350.1.13.10 4.2.7.2.686 [id number] 084 [id number] [facility] 2020-02-08 00:00:00 2020-02-08 00:00:00 Orders Only Doctor Unassigned, [place] [facility] 1.2.840.114 350.1.13.10 4.2.7.2.686 [id number] [id number] [facility] 2020-02-01 00:00:00 2020-02-01 00:00:00 Telephone Bettye Parson [facility] Building 1.2.840.114 350.1.13.10 4.2.7.2.686 [id number] 204 [id number] [facility] 2020-02-01 00:00:00 2020-02-01 00:00:00 Refill Kevin Mayes [facility] Building 1.2.840.114 350.1.13.10 4.2.7.2.686 [id number] 220 [id number] [facility] 2020-01-23 00:00:00 2020-01-23 00:00:00 Telephone Gerber [facility] 1.20.114 350.1.13.10 4.2.7.2.686 [id number] 220 [id number] [facility] 2020-01-13 08:53:48 2020-01-13 09:17:41 Office Visit Wong Thornton Craig L [facility] Health Surgical Specialti harsh Mccullough 1.20.114 350.1.13.10 4.2.7.2.686 [id number] [facility] 2020-01-13 08:45:00 2020-01-13 08:45:00 Outpatient R DALLIN LUIS [facility] [id number] [facility] 2020-01-03 10:33:32 2020-01-03 10:48:32 Hospital Admitting Clerk Visit Pob, Adc Lab Main Gerber [facility] 1.20.114 350.1.13.10 4.2.7.2.686 [id number] [facility] 2020-01-03 09:21:07 2020-01-03 10:03:18 Office Visit Gerber [facility] 1.2840.114 350.1.13.10 4.2.7.2.686 [id number] [facility] 2020-01-03 09:00:00 2020-01-03 09:00:00 Outpatient R GERBER [facility] [id number] [facility] 2019-12-28 00:00:00 2019-12-28 00:00:00 Orders Only Doctor Unassigned, [place] [facility] 1.2840.114 350.1.13.10 4.2.7.2.686 [id number] [id number] [facility] 2019-12-23 00:00:00 2019-12-23 00:00:00 Telephone [facility] 1.2.840.114 350.1.13.10 4.2.7.2.686 [id number] [facility] 2019-12-22 10:30:00 2019-12-22 10:30:00 Outpatient R DALLIN LUIS [facility] [id number] [facility] 2019-12-22 00:00:00 2019-12-22 00:00:00 Telephone [facility] 1.2.840.114 350.1.13.10 4.2.7.2.686 [id number] 019 [id number] [facility] 2019-12-13 08:52:58 2019-12-13 09:33:23 Office Visit Jade To [facility] 1.2.840.114 350.1.13.10 4.2.7.2.686 [id number] 059 [id number] [facility] 2019-12-13 09:00:00 2019-12-13 09:00:00 Outpatient R JOEL TOFOX [facility] [id number] [facility] 2019-12-08 09:54:36 2019-12-08 23:59:00 Hospital Encounter Dallin [facility] 1.2.840.114 350.1.13.10 4.2.7.2.686 [id number] [facility] 2019-12-08 09:47:40 2019-12-08 13:42:22 Office Visit Dallin Luis [facility] Surgical Specialti harsh [place] 1.2.840.114 350.1.13.10 4.2.7.2.686 [id number] [facility] 2019-12-08 10:00:00 2019-12-08 10:00:00 Outpatient R DALLIN LUIS [facility] [id number] [facility] 2019-12-05 00:00:00 2019-12-05 00:00:00 Telephone Kevin Mayes [facility] Building 1.2.840.114 350.1.13.10 4.2.7.2.686 [id number] 220 [id number] [facility] 2019-12-05 00:00:00 2019-12-05 00:00:00 Telephone Kevin Mayes [facility] Building 1.2.840.114 350.1.13.10 4.2.7.2.686 [id number] 220 [id number] [facility] 2019-12-01 14:19:06 2019-12-01 14:56:35 Office Visit Essie Guerra [facility] 1.2.840.114 350.1.13.10 4.2.7.2.686 [id number] [facility] 2019-12-01 14:30:00 2019-12-01 14:30:00 Outpatient R ESSIE GUERRA [facility] [id number] [facility] 2019-11-23 08:00:00 2019-11-23 23:59:00 Hospital Encounter Essie Guerra [facility] 1.2.840.114 350.1.13.10 4.2.7.2.686 [id number] [facility] 2019-11-23 00:00:00 2019-11-23 00:00:00 Outpatient R ESSIE GUERRA [facility] [id number] [facility] 2019-11-21 08:52:34 2019-11-21 09:16:52 Office Visit Essie Guerra [facility] 1.2.840.114 350.1.13.10 4.2.7.2.686 [id number] [facility] 2019-11-21 09:00:00 2019-11-21 09:00:00 Outpatient R ESSIE GUERRA [facility] [id number] [facility] 2019-11-04 06:27:00 2019-11-04 11:15:00 Hospital Encounter Essie Guerra [facility] 1.2840.114 350.1.13.10 4.2.7.2.686 [id number] [facility] 2019-11-03 09:03:00 2019-11-03 09:18:00 Laboratory Only Only, [facility] Test Essie Guerra [facility] 1.20.114 350.1.13.10 4.2.7.2.686 [id number] [facility] 2019-11-03 09:15:00 2019-11-03 09:15:00 Outpatient R ESSIE GUERRA [facility] [id number] [facility] 2019-11-03 00:00:00 2019-11-03 00:00:00 Telephone Essie Guerra [facility] 1.0.114 350.1.13.10 4.2.7.2.686 [id number] [facility] 2019-10-31 00:00:00 2019-10-31 00:00:00 Orders Only Doctor Unassigned, [place] [facility] 1.0.114 350.1.13.10 4.2.7.2.686 [id number] [id number] [facility] 2019-10-25 08:05:48 2019-10-25 08:15:58 Nurse Visit Nurse, [facility] Surgery Bettye Paniagua [facility] Professio [facility] Building 1.20.114 350.1.13.10 4.2.7.2.686 [id number] [facility] 2019-10-25 08:00:00 2019-10-25 08:00:00 Outpatient R [facility] [id number] [facility] 2019-10-21 00:00:00 2019-10-21 00:00:00 Telephone Essie Guerra [facility] 1.2.840.114 350.1.13.10 4.2.7.2.686 [id number] 377 [id number] [facility] 2019-10-21 00:00:00 2019-10-21 00:00:00 Prep For Surgery Essie Guerra [facility] 1.2.840.114 350.1.13.10 4.2.7.2.686 [id number] 377 [id number] [facility] 2019-10-21 00:00:00 2019-10-21 00:00:00 Telephone Essie Guerra [facility] 1.2.840.114 350.1.13.10 4.2.7.2.686 [id number] 377 [id number] [facility] 2019-10-20 07:57:38 2019-10-20 09:07:19 Office Visit Essie Guerra [facility] 1.2.840.114 350.1.13.10 4.2.7.2.686 [id number] 377 [id number] [facility] 2019-10-20 08:00:00 2019-10-20 08:00:00 Outpatient R ESSIE GUERRA [facility] [id number] [facility] 2019 00:00:00 2019 00:00:00 Telephone Bettye Parson [facility] 1.2.840.114 350.1.13.10 4.2.7.2.686 [id number] 204 [id number] [facility] 2019-10-05 00:00:00 2019-10-05 00:00:00 Orders Only Doctor Unassigned, [place] [facility] 1.2.840.114 350.1.13.10 4.2.7.2.686 [id number] [id number] [facility] 2019-09-21 00:00:00 2019-09-21 00:00:00 [facility] 1.2.840.114 350.1.13.10 4.2.7.2.686 [id number] 204 [id number] [facility] 2019-09-07 08:56:03 2019-09-07 09:16:03 [facility] 1.2.840.114 350.1.13.10 4.2.7.2.686 [id number] 059 [id number] [facility] 2019-09-07 09:00:00 2019-09-07 09:00:00 Outpatient R EDEL DU[facility] [id number] [facility] 2019-09-05 08:13:26 2019-09-05 09:10:08 Office Visit Khalida [facility] Building 1.2.840.114 350.1.13.10 4.2.7.2.686 [id number] [facility] 2019-09-05 08:00:00 2019-09-05 08:00:00 Outpatient R KHALIDA [facility] [id number] [facility] 2019-08-31 16:00:00 2019-08-31 16:00:00 Outpatient R GERBER [facility] [id number] [facility] 2019-08-31 08:19:01 2019-08-31 08:49:01 [facility]medici ne [facility] 1.2.840.114 350.1.13.10 4.2.7.2.686 [id number] 220 [id number] [facility] 2019-08-30 00:00:00 2019-08-30 00:00:00 Refill Kevin Mayes [facility] 1.2.840.114 350.1.13.10 4.2.7.2.686 [id number] 220 [id number] [facility] 2019-08-25 00:00:00 2019-08-25 00:00:00 Orders Only Doctor Unassigned, [place] [facility] 1.2.840.114 350.1.13.10 4.2.7.2.686 [id number] [id number] [facility] 2019-08-25 00:00:00 2019-08-25 00:00:00 Telephone Khalida [facility] 1.2.840.114 350.1.13.10 4.2.7.2.686 [id number] 204 [id number] [facility] 2019-08-22 13:39:00 2019-08-22 23:59:00 Outpatient CHANCE MENDEZ [facility] [id number] [facility] 2019-08-19 00:00:00 2019-08-19 00:00:00 Telephone [facility] 1.2.840.114 350.1.13.10 4.2.7.2.686 [id number] [id number] [facility] 2019-08-12 00:00:00 2019-08-12 00:00:00 Telephone Khalida [facility] 1.2.840.114 350.1.13.10 4.2.7.2.686 [id number] 204 [id number] [facility] 2019-08-11 00:00:00 2019-08-11 00:00:00 [facility] 1.2.840.114 350.1.13.10 4.2.7.2.686 [id number] [facility] 2019-07-27 00:00:00 2019-07-27 00:00:00 Telephone Paige Pike [facility] Building 1.2.840.114 350.1.13.10 4.2.7.2.686 [id number] [facility] 2019-07-27 00:00:00 2019-07-27 00:00:00 Orders Only Doctor Unassigned, [place] [facility] 1.2.840.114 350.1.13.10 4.2.7.2.686 [id number] [id number] [facility] 2019-07-26 09:23:48 2019-07-26 09:38:48 Hospital Admitting Clerk Visit 2, Adc Lab Khalida [facility] Building 1.2.840.114 350.1.13.10 4.2.7.2.686 [id number] [facility] 2019-07-26 09:30:00 2019-07-26 09:30:00 Outpatient R KHALIDA [facility] [id number] [facility] 2019-07-26 00:00:00 2019-07-26 00:00:00 Telephone Samson Perdomo [facility] 1.2840.114 350.1.13.10 4.2.7.2.686 [id number] [facility] 2019-07-22 08:21:19 2019-07-22 08:36:19 Telemedici ne Visit Khalida [facility] 1.2840.114 350.1.13.10 4.2.7.2.686 [id number] 204 [id number] [facility] 2019-07-22 08:15:00 2019-07-22 08:15:00 Outpatient R KHALIDA [facility] [id number] [facility] 2019-07-20 08:00:00 2019-07-20 08:00:00 Outpatient R [facility] [id number] [facility] 2019-07-15 00:00:00 2019-07-15 00:00:00 Telephone Khalida [facility] Building 1.2840.114 350.1.13.10 4.2.7.2.686 [id number] 204 [id number] [facility] 2019-07-07 13:26:16 2019-07-07 13:45:19 Nurse Visit Nurse, [facility] Surgery Khalida Kell [facility] Building 1.2.840.114 350.1.13.10 4.2.7.2.686 [id number] [facility] 2019-07-07 13:30:00 2019-07-07 13:30:00 Outpatient R KHALIDA [facility] [id number] [facility] 2019-06-21 07:58:31 2019-06-21 08:16:35 Nurse Visit Nurse, [facility] 1.2.840.114 350.1.13.10 4.2.7.2.686 [id number] [facility] 2019-06-21 08:00:00 2019-06-21 08:00:00 Outpatient R KHALIDA [facility] [id number] [facility] 2019-06-21 00:00:00 2019-06-21 00:00:00 Refill Khalida [facility] Building 1.2.840.114 350.1.13.10 4.2.7.2.686 [id number] 204 [id number] [facility] 2019-06-08 12:47:13 2019-06-08 13:02:13 Nurse Visit Nurse, Adc Surgery [facility] Building 1.2.840.114 350.1.13.10 4.2.7.2.686 [id number] [facility] 2019-06-08 08:00:00 2019-06-08 13:01:42 [facility] [id number] [facility] 2019-06-08 00:00:00 2019-06-08 00:00:00 Telephone Khalida [facility] Building 1.2.840.114 350.1.13.10 4.2.7.2.686 [id number] [facility] 2019-06-06 00:00:00 2019-06-06 00:00:00 Telephone Khalida [facility] Building 1.2.840.114 350.1.13.10 4.2.7.2.686 [id number] 204 [id number] [facility] 2019-06-01 08:29:54 2019-06-01 08:44:54 Hospital Admitting Clerk Visit 2, Adc Lab Khalida [facility] Building 1.2.840.114 350.1.13.10 4.2.7.2.686 [id number] [facility] 2019-06-01 08:00:00 2019-06-01 08:00:00 [facility]patient [facility] [id number] [facility] 2019-06-01 00:00:00 2019-06-01 00:00:00 Telephone MayesKevin [facility] Building 1.2.840.114 350.1.13.10 4.2.7.2.686 [id number] [facility] 2019-06-01 00:00:00 2019-06-01 00:00:00 Orders Only Doctor Unassigned, [place] [facility] 1.2.840.114 350.1.13.10 4.2.7.2.686 [id number] [facility] 2019-05-18 08:13:29 2019-05-31 14:02:24 Nurse Visit Nurse, [facility] Surgery Fernando Khalida [facility] Building 1.284.114 350.1.13.10 4.2.7.2.686 [id number] [facility] 2019-05-30 00:00:00 2019-05-30 00:00:00 Telephone Gerber [facility] 1.284.114 350.1.13.10 4.2.7.2.686 [id number] [facility] 2019-05-19 00:00:00 2019-05-19 00:00:00 Orders Only Doctor Unassigned, [place] [facility] 1..114 350.1.13.10 4.2.7.2.686 [id number] [id number] [facility] 2019-05-18 08:00:00 2019-05-18 08:29:00 [facility] [id number] [facility] 2019-05-05 14:00:00 2019-05-05 15:13:58 [facility] [id number] [facility] 2019-04-08 08:00:00 2019-04-08 08:49:46 Outpatient R KHALIDA [facility] [id number] [facility] 2019-01-10 00:00:00 2019-01-10 00:00:00 Refill Gerber [facility] 1.2.840.114 350.1.13.10 4.2.7.2.686 [id number] 220 [id number] [facility] 2018-12-15 00:00:00 2018-12-15 00:00:00 Telephone Gerber [facility] 1.284.114 350.1.13.10 4.2.7.2.686 [id number] 220 [id number] [facility] 2018-12-15 00:00:00 2018-12-15 00:00:00 Orders Only Doctor Unassigned, [place] [facility] 1.2.840.114 350.1.13.10 4.2.7.2.686 [id number] [facility] 2018-12-01 00:00:00 2018-12-01 00:00:00 Refill Gerber [facility] 1.2.840.114 350.1.13.10 4.2.7.2.686 [id number] 220 [id number] [facility] 2018-11-30 09:03:04 2018-11-30 10:12:23 [facility] 1.2.840.114 350.1.13.10 4.2.7.2.686 [id number] 220 [id number] [facility] 2018-11-30 00:00:00 2018-11-30 00:00:00 Orders Only Doctor Unassigned, [place] [facility] 1.2.840.114 350.1.13.10 4.2.7.2.686 [id number] [id number] [facility] 2018-11-29 00:00:00 2018-11-29 00:00:00 Refill Paige Pike [facility] 1.2.840.114 350.1.13.10 4.2.7.2.686 [id number] [facility] Results Test Description Test Time Test Comments Results Resul t Comments Source XR Hips 2 vw right 2024-11-08 19:26:05 EXAM: XR HIPS 2 VW RIGHT HISTORY: rt hip pain Room 1 COMPARISON: 10/04/2023. FINDINGS: Radiographs of the right hip demonstrate no acute fracture or dislocation.Ther e is mild right hip joint osteoarthrosis, grossly unchanged. Alignmentis within normal limits. [facility] [facility]+ vw [id number] 01:26:24 HISTORY: ?fall, R ankle and foot pain COMPARISON: ?None. FINDINGS: 3 views of the right ankle and 3views right foot demonstrate normalalignment. ?No fracture, foreign body, or focal osseous lesion isidentified.[facility]XR [facility]+ vw payen1254-52-12 01:26:24HISTORY: ?fall, R ankle and foot pain COMPARISON: ?None. FINDINGS: 3 views of the right ankle and 3views right foot demonstrate normalalignment. ?No fracture, foreign body, or focal osseous lesion isidentified.[facility] CenterFL Time OR(non-reportable) 2024-07-19 15:24:43These images do not require a Radiology diagnostic report. [facility] GLUCOSE (AUTOMATED)2024-07-19 14:59:32* Test Item Value Reference Range Interpretation Comme nts POCT GLU (test code = 2857950581) 203 mg/dL 70-110 H Lab Interpretation (test cod e = 85427-4) Abnormal [facility] GLUCOSE (AUTOMATED)2024-07-19 14:01:02* Test Item Value Reference Range Interpretation Comme nts POCT GLU (test code = 8782600468) 228 mg/dL 70-110 H Lab Interpretation (test cod e = 19013-4) Abnormal [facility] ACT Low Zkyrw7091-10-79 13:29:58* Test Item Value Reference Range Interpretation Comme nts ACTLR (test code = 5930508895) 283 89-169 H Lab Interpretation (test cod e = 38007-0) Abnormal [facility] GLUCOSE (AUTOMATED)2024-07-14 16:26:32* Test Item Value Reference Range Interpretation Comme nts POCT GLU (test code = 7152714470) 249 mg/dL 70-110 H Lab Interpretation (test cod e = 05001-2) Abnormal [facility] GLUCOSE (AUTOMATED)2024-07-14 14:50:01* Test Item Value Reference Range Interpretation Comme nts POCT GLU (test code = 9672814835) 311 mg/dL 70-110 H Lab Interpretation (test cod e = 35880-0) Abnormal [facility] GLUCOSE (AUTOMATED)2024-07-14 13:36:00* Test Item Value Reference Range Interpretation Comme [facility] POCT GLU (test code = 7772818201) 319 mg/dL 70-110 H Lab Interpretation (test cod e = 22859-2) Abnormal [facility] CenterCATH PROCEDURE [id number] 13:28:51Ordered by an unspecified provider.[facility] Metabolic Panel (NA, K, CL, CO2, GLUCOSE, BUN, CREATININE, CA)2024-07-14 12:46:57* Test Item Value Reference Range Interpretation Comme nts NA (test code = 7475022198) 137 mmol/L 135-145 K (test code = 1603011395) 4.9 mmol/L 3.5-5.0 Slight hemolysis CL (test code = 3709800472) 100 mmol/L 98-108 CO2 TOTAL (test code = 3599008141) 30 mmol/L 23-31 AGAP (test code = 9992107069) 7 2-16 BUN (test code = 8587937066) 19 mg/dL 7-23 Slight hemolysis GLUCOSE (test code = 5937112288) 300 mg/dL 70-110 H CREATININE (test code = 2160-0) 0.87 mg/dL 0.60-1.25 CALCIUM (test code = 0479869806) 9.0 mg/dL 8.6-10.6 eGFR (test code = 48985-0) 97.6 mL/min/1.73m2 CKD-EPI eGFR (2020). Assuming creatinine has been stable day-to-day for at least three months, the eGFR indicates Category G1 (>= 90 mL/min/1.73 m2) Lab Interpretation (test code = 51940-7) Abnormal [facility] GLUCOSE (AUTOMATED)2024-07-14 12:06:55* Test Item Value Reference Range Interpretation Comme [facility] POCT GLU (test code = 9970194045) 312 mg/dL 70-110 H Lab Interpretation (test cod e = 57046-2) Abnormal [facility] Hemoglobin A1C Wpma7846-10-61 15:54:00* Test Item Value Reference Range Interpretation Comme [facility] POCT HBA1C (test code = 4548-4) 7.5 % 4-5.6 A Lab Interpretation (test cod e = 54719-2) Abnormal [facility] CenterNM MYOCARDIUM PERFUSION STRESS AND REST 2024-05-24 22:44:45Pharmacological stress myocardial perfusion imaging report Type: Technetium 99 labeled Myoview rest/stress single isotope SPECTimaging with Ragadenoson pharmacological stress and gated SPECT imaging.Indication: dyspnea Procedure: Pharmacological stress test was performed with a bolus dose of 0.4 mg ofRagadenoson. Gated myocardial perfusion imaging was performed at restfollowing the injection of 15.4 millicuries of technetium labeled Myoviewand post stress following the injection of 41.3 millicuries of technetiumlabeled tetrofosmin. Findings: The overall quality of the study was good. Stress EKG revealed no inducible ischemia, reported separately. SPECT images demonstrate a moderate sized of mild intensity partiallyreversible inferior perfusion defect. TID 0.94. Gated SPECT images demonstrate normal wall motion and myocardialthickening. Stress Values: ?EDV = 82 mL; ESV = 29 mL; EF = 64%.Rest Values: ?EDV = 89 mL; ESV = 47 mL; EF = 47%.[facility] THO,POST-VOID RES,US,RVX-MUMOVHZ8126-35-18 16:41:00* Test Item Value Reference Range Interpretation Comme nts PVR (URINE VOLUME) (test code = 5193) 29 ml 0-100 [facility] CenterPOCT Urinalysis, Elkezbxngn3936-29-92 16:33:00 * Test Item Value Reference Range [...] U APPEAR (test code = 3267) clear [facility] CenterPHYSICIAN WACSSI5566-80-66 18:51:40Ordered by an unspecified provider.[facility] CenterTransferrin2024-12-11 17:46:20* Test Item Value Reference Range Interpretation Comme nts TRANSFERRN (test code = 2184892831) 291 mg/dL 168-336 Lab Interpretation (test cod e = 45966-9) Normal [facility] CenterFerritin Zxnyu6994-99-99 23:35:54* Test Item Value Reference Range Interpretation Comme nts FERRITIN (test code = 4302755434) 10.6 ng/mL 18.0-464.0 L SERGEI (test code = SERGEI) Biotin has been reported to cause a negative bias, interpret results relative to patient's use of biotin. Lab Interpretation (test code = 41998-6) Abnormal [facility] CenterIron Elloy8203-88-83 23:18:09* Test Item Value Reference Range Interpretation Comme nts IRON (test code = 0639009855) 61 ug/dL 50-160 TIBC (test code = 3112021795) 341 ug/dL 250-410 % FE SAT (test code = 7111547137) 18 % 20-50 L Lab Interpretation (test cod e = 40026-8) Abnormal [facility] CenterComp. Metabolic Panel (65310)2024-04-05 23:08:48* Test Item Value Reference Range Interpretation Comme nts NA (test code = 8225259408) 135 mmol/L 135-145 K (test code = 6818527131) 5.3 mmol/L 3.5-5.0 H CL (test code = 7785611168) 100 mmol/L 98-108 CO2 TOTAL (test code = 6655880153) 28 mmol/L 23-31 AGAP (test code = 2843168522) 7 2-16 BUN (test code = 0396884411) 27 mg/dL 7-23 H GLUCOSE (test code = 0957379871) 202 mg/dL 70-110 H CREATININE (test code = 2160-0) 1.09 mg/dL 0.60-1.25 TOTAL BILI (test code = 5530235817) 0.2 mg/dL 0.1-1.1 CALCIUM (test code = 1890623190) 9.6 mg/dL 8.6-10.6 T PROTEIN (test code = 1254528075) 7.1 g/dL 6.3-8.2 ALBUMIN (test code = 4142944677) 4.2 g/dL 3.5-5.0 ALK PHOS (test code = 4705937068) 85 U/L 34-122 ALTv (test code = 1742-6) 16 U/L 5-50 AST(SGOT) (test code = 9941935386) 19 U/L 13-40 eGFR (test code = 81328-6) 76.7 mL/min/1.73m2 CKD-EPI eGFR (2020). Assuming creatinine has been stable day-to-day for at least three months, the eGFR indicates Category G2 (60 - 89 mL/min/1.73 m2) Lab Interpretation (test code = 25887-0) Abnormal [facility] CenterCb with Ubjr1920-71-47 21:38:50* Test Item Value Reference Range Interpretation [...] g/dL 31.2-35.0 L RDW-SD (test code = 08349-9) 43.7 fL 38.5-51.6 RDW-CV (test code = 788-0) 14.6 % 12.1-15.4 PLT (test code = 777-3) 314 150-328 MPV (test code = 51122-9) 10.1 fL 9.8-13.0 NRBC/100 WBC (test code = 8265047844) 0.0 0.0-10.0 NRBC x10^3 (test code = 7772505552) See_Comment [Automated messa ge] The system which generated this result transmitted reference range: 10*3/?L. The reference range was not used to interpret this result as normal/abnormal. GRAN MAT (NEUT) % (test code = 770-8) 56.3 % IMM GRAN % (test code = 5606394652) 0.30 % LYMPH % (test code = 736-9) 23.7 % MONO % (test code = 5905-5) 5.7 % EOS % (test code = 713-8) 13.3 % BASO % (test code = 706-2) 0.7 % GRAN MAT x10^3(ANC) (test code = 3115131984) 6.48 10*3/uL 1.99-6.95 IMM GRAN x10^3 (test code = 7226451940) 0.04 10*3/uL 0.00-0.06 LYMPH x10^3 (test code = 731-0) 2.74 10*3/uL 1.09-3.23 MONO x10^3 (test code = 742-7) 0.66 10*3/uL 0.36-1.02 EOS x10^3 (test code = 711-2) 1.54 10*3/uL 0.06-0.53 H BASO x10^3 (test code = 704-7) 0.08 10*3/uL 0.01-0.09 Lab Interpretation (test code = 90681-6) Abnormal [facility] CenterSurgical Pathology Pgwp0710-89-24 17:32:42* Test Item Value Reference Range Interpretation Comme nts Case Report (test code = 8315019288) Surgical Pathology ?Case: [id number] ? Authorizing Provider: ?Bettye Parson MD ? Collected: ? 03/10/2024 1313 ?Ordering Location: ? ? [facility] ? ? ?Received: ?03/10/2024 1727 ? [place] ? Pathologist: ? Sydnee, Tank, ? MD ? Specimen: ? ?PROSTATE, prostate chips - 10grams ? Final Diagnosis (test code = 4532741979) q3ttcZSzXKGvq0tqSPCcwO FuZzEwMzNcZnRuYmpcdWMx PTwmixGbKEcpwNldLJT9OZ IjTM7hbAqjqVo0vGjhNAPl cmK9zPJmPLbcx2raQLU9g8 pkgawzLOXgIFeoYf2xuHIw rZzvCdUiKOVhHVy9qL49RL NvjT5voLSwTQccdqXpBIyr ioTknsVtInp0HSB5lJbnRJ FxvhixFaA4WUnjRWAggmos AGn9RCexGZBkyKD8CAFwdH OzO5ViQOBiGQ6bxzz1GQY0 CNqlDNZfZtX9SMHicUWqZT MkrTvgNJspg027ISY8YnZu UTFlkvCygVmttH3jCwKyIX ijCCYvF5TdLCWaVCKKW7GQ QVRFLCBFTlVDTEVBVElPTj ogXHBhclx+EW4bkpo+IC0g YmXNQNoWJDVFF6HLSACZFi BIWVBFUlBMQVNJQSBXSVRI SVZZFz3LZJBeNK8EKMFDYZ WCAS3MPEXutlqvKWSaS8Bv IFRheWxvciBTdHJhbmdlLC BNRFxjZjEgIFxwYXJccGFy iJqczjYlMTpxs5KlG0QyNq AwMFxhbnNpXGRlZmxhbmcx IOVsPPA1ucJdTDTtWIzoKU KfVTnlAv5dzHHdoNlnZuEx ENFns4thbwNRCOalBiRjR2 05JRYlVLqjg3kbj8TpDUAi fUTxa8Y4QEGKzmjwpTj0m2 rwRlWeTmU4qAIgYCgdZ1ny pxKafDNrT9NaaTOqfRl1oI kiZ10wy6G6OvtrE7opCCXl XEOnE5TrEN6iUSNsFcr6FJ C8RRU4LTInTYJhF6DcUD9l QNNqzUQaGMj1o6uhnQduGZ RxQVM0j1zsYTqvndR0BV5w wh2reBd3f6ofsaRwONRjZC McnXHAYSHqP8YdlKnqAj4v fGr4oEevXqvcTIO8Yfb7NO 2bzs96wqb8dYtyAXAkfleq IrQ1XWvpMDFiuvqpSXs8ML xoSTBpwIH4BFMgnKEnJ3Iw QMAcPO3sxuv9YKY4ZDwrOZ VqNeT3TONvaHGoUNYwrIso BMipb155UQW8CwGhLZ8xG0 Noi1E1pI5tvPZzATTubMZl GlVxQYPade4hbGIxAVlox6 FuDUZ1yjX7pFFabRVoEICq XD02Emcns1DjIerlWQR1AO RabcUfw6Pch5zyEtNrwhEm S5bwR6PgVFYpXQLlSMMxZh RonzWkf2Jir4FqaXXhuUu1 t8efVRPjGYCkqLowt0lxRS M2TXYyV8K7vZPml0gjEMqt BCVjkBX1faK1CIMkzXRpQ0 PgrY2yIDGvQK7lbly4j3mr ESX1BWnsJHOgIlV8plC6OY EtvWAlGHPnyWmjLDasc293 EFU5LxMtLGXmx9CvI9SdyN cmD98viQkuX47bNPCqwDib vE3fsVddoS8hNiCoHyLuQV xxbFxwbGFpblxmMVxmczIw PSjvlmypRKSeQNucN0dfUz IhACSurZdtMOoyn8DzBXZz XGNmMlxmczIwXHBhciBJIG uxunGwsNLtm92bCStykPHl SLVePIgnDIGuzFjmb8JnC8 ofOK1vF5EomQFtjmQbkdXz JQxdEWAqg2v8yZGvqJqfi4 SqyXVnNH05mdCcALZkHOB9 XZLjs2hiVU69zckkEnMrvC 57gtKqcfToSMUqs0fzR4rs yGIbd1Oqt6DpedNsNPsew7 XhTS7ewBYbskxsgHP2JRId fXPdmtMrvvI2eTdcOWLkuW 8kiZ8olYemfX3yShJtCsIa GYqoPQ2gURCwD3zifRFiJQ XlXBPeO1buWyJyjG9lcJnh GybredZ3YTPdvd31 Clinical Information (test code = 2830679574) Benign prostatic hyperplasia with urinary retention [N40.1, R33.8] Gross Description (test code = 4299562700) s3musXYsICElaOGHXWU4IE QpCZ8wjShqwDu2iOluILAg yqQ4cOKmIPcvp9ipNXI2p9 hzdqRSFqizMVVhRP0gBLht UQZlON1jAlDzMKIrKxUmCR BhcGVydzEyMjQwXHBhcGVy vQB1ZYBvZB7kfwjqHMvhZC kbORBxppA6QIQuiTZcO3Nn FYVtFV9bftarGVV8JWNFKp oeKb2yeYCbrCauSaSiSaMk GEWjPXYhTRGpo1mxbgJLuv lowUz5sY4Wc8ilc8qyziCp bDtccmVkMFxncmVlbjBcYm e7BCK8nY2RMCQuG0UbVI5W a6lpCHWsmBErDAJ3DQrnb8 ewORwgDXY5CLFkDDWmABSz VW4AMdHpVMM0GYb2UGTwMv X3KSm5KQZLWQJlAEVdVtV6 WoC4MYt2SDPyTT3iWJsvgM YhASupPtdiRXsdJ233YKfn RBZiL9ZxU7IqAUbaHmQvTK dnCZBcZLZrZWkuBWDlA1VR ESBtMYKyMUX0WOUuKMu7FT u1XW7OGgYwCDJzNHU0ZmPg ULHeQLa2RSglZF1ZSPMoPM QjBIV7QMHvQECtIyYzKJk7 IDIgXFxzcyAzIFxcZmwgXF cgV00qdFBaWXCGRoivtDKk blxmczIwIFNQRUNJTUVOIE AykDSqA6vzIcAkRimsHPWr DQpccGFyZCANClxwbGFpbl xsdHJjaFxmczIyXGVwaWNO MYO9DD2fCILWFyjjaYSuDR TsSRhqX1KhONOkQjHxR4Ky Y1fdSO9fKXDhgeVmRSFmkR MnJCFdupMwu5ZyUXgasmMl YWJlbGVkIHdpdGggdGhlIH MurYjjcwGuxzDuJK9lEXYN HCWbmF4xFEWySMDqgn1lpP N2JMQneMzsop3oRIWnxdQi iqEaGS0fZRVurfHea0EtQB 3gVCWyXSWwV6PtJ6U3WOGj LvC0VP0pwSqlaoE0gkY6BM jcb1nbCPIizvslJ5I8XJZq z81mnOJ8fGMznOFhHrCuB3 5fhxJmLAr1IvKojJPyXcIu lUPcQhzoF49nyZ8nWMsrdq HeBYIfTNN5HCslBO3pHT5o JAFuLJDvuOUfuQ8srtHrih IiuSWtjOF2KBRhWH45vGJv gMfhwG6uENVjuAptNVLyHF u8VeJ4QmgeGTIdUQpzpFPf LE7OHZNsvWntejHRqRpkLS QdEQQWDFaicBPqET6BLYDu w1TgG1O7LSVfTGhsx9yoXS QgXWocp9EqMIyJVDKQXM7B NP3mrUZ9XSbOM0VVW1uLyX PyOKXlKPyfgAWVZG16BRp1 gXJ8fB24NQSdCTLdsKZiDO hpN542OOFnVNWgYqYiEIJz IqfjQnosKrwthBT9DEkjHk yumI4dgOYYJLPMLtyHKqhz ctJiEZ4MSF8OQL1VcFMeGF DqVXwbjYKRIA49UAl7xXC6 hB14DIUtXSMqbOKzFWlbJ6 84PCTiFTwyPEr2zhDqZCSh MVxmczIwXHBhciANClxzYT OgCSJboTZFg5XsXYBRIqsv hLjgKwLwrRJzLqV7RLWaqL WyMTQ3CS3lxZwhCLTbN5Jm Y9EtvyU3YAIxigCRRhqyPM UyWK4KCNFpYAnlrdSnOH5V fQ== Disclaimer (test code = 9930666070) q3fagEWpOMTcl9nmFYHipX FuZzEwMzNcZnRuYmpcdWMx VXcdtbMaMVbkb5OdQ5UvHo AwMFxhbnNpXGRlZmxhbmcx GUKpUSK8kiCbLAAfNKqfEK DoQTtyKb2hmIGaaNijHaWk WBLbi5kyyaPWVGxwExSxW8 36XOHaEDsso8lao4RkWXIo nVWbp7S0EPCHfhakyLr9oY hqO78ma2C5XpivE7zeSLZy WCOqW4MnRU5qBDGuIeh7RE V5EWK1QTVaSLKjU8VgOJ8o VJWfzZUoWDf9m0uzcDxnLG UaFQR8o5npHZjqjfFxIM4b pn2zwLx1e3tnozXqWEGuRC AdgKUCOUEbZ1GadKcbDr3f gSv8pMvaZkvpMIF9Uqw9UZ 1pne99zoe7wRvkHLGkqfws FhD7CYsvDBXhpctzENg5SG kyETSzyNO4MKKvnJYmZ0Lx ZOHrMB5mcsx7FFE3LFrdAG GxWcT2WHWqqJVrVQOtqNgw ZCkek254GWT7FxInRF3qX5 Kgx2G8uF0omXGkBXBzgMRu XuQaSBWztj9dtMLtBJovk9 LfHTC4zfA6yKEgwULiOXRn MB66Usvxx1QnPckcc6IlO6 3mzLI5SPfnt6rrOS3bWwU5 xdBbARfsg3ublD9wAhJ1SH bxOF5lHP1eEHMhaG9mpupc XHBnYnJkcmhlYWRccGdicm ThXa7paLpjAXO7DTuiQ5vx nL3bFzS0UKggZ5cijG7rYB r5FNeesMA6TBKwyF6zKJ1y zpnqc1lnFMsuDLfkFKRiww B2niB1QBTmeGPaH8McsM7c WOPtCH3xfvqkq9yvRJC4RZ ysWJWtFNH1PiWzBPUgu2Cv ifr6LaUkw5SekDSzDJqwQ3 3tv642XCJkrvPiP7bzpGLd uxshhQCwwzlqWXcgqfA0ZF TggqHqc6YoBMOgRNR8DQtl LPcicQUyUFLapLfjg8zsY8 RscGFyXHBsYWluXGYxXGZz MjBcbGFuZzEwMzNcaGljaF yuIPawTmRnVEBiYLfjK9po GeJfA0YeWTQiQhBicNVpO0 ggVGhpcyByZXBvcnQgbWF5 KZyeA5v2RPZikdFqvHg4eb VeOeCySIBeHKW3RRneeVQu RZMag4ZvuxgbvCQoNl1jqJ EiJYCxxN2mVPOjXISyFUxs GC7ybNr1VZDZeITzlGMqYc FYGJSqES25axCiEOXGhcej q3P4JSomNXTye4MkcVCyZ0 phn7BlEHGso43jXT7sa5F7 k6wvKZV0RM4nw5FvEDSqsR DpdIXaQBGls0Bzjowdo4Uf AZKkjrYho9VoGHXnomRzrK FvMFSbcpNatt4jikDeKBVl TCVbG3BafkwnxAlohmBzGX Nqua5kviQwYRT0KVWZKNFy NQMjy4UfhL8qnIPIXNF7uI Fslt3wcjQVtSUwOFMpho84 RCRfPB2bV6dqPKIgBCNllk HrlBCuc0HaBSWpfOZ0sZHb XA6TIbLGv92vAVLpKGUYqj KbIHZnyQkzdUS1xoP5nH3u IChGREEpLlx+IFRoZSBGRE LzVH0arhXvh0FxhcWbdKfl EYMvlKPkz7RsdPNhb1XeaY rhz0KfeEFdeVVkES8hYVCa clxwYXIgVVRNQiBMYWJvcm W2e4UnSOTfLYPkTWM4xYur zyx0ZMEcqL7bTVXuY2ltci lmOFwlQBAoi1CqrL0rxKQJ fCLwo1UdfFJavCJBdHHqZX 6qkhNcXUjJGAjGGDM2wuZp KTCph6PiCJdeX1hpF44foN nmlHo6uKF3WFW4dA5zChs+ IFxwYXJccGFyIEFwcHJvcH QtROPjaQrjrqSkV5MetjXr oT8bbFQayvRfQM1ePC4vT3 V9mMBbQYWghvWld4jrZTna dmUgYmVlbiByZXZpZXdlZC Jjf3JuXOpoTGY6ZAkoldNv bmNsdWRpbmcgSCZFLCBTcG TowDDoCTR0CJiyadPsmkIk FN7dvD9boPpobD4yhJLmdF I3rlchXGBoRSRwnUazPYWn BV1gbQttnY2sOkAnCdRuCP raUE2sTJXcI6whcDEnIPOg UUGaV9oyKlOprH6siLdhOP xjZjJcZnMyMFxwYXJccGFy XHBsYWluXGYxXGZzMjBcbG FuZzEwMzNcaGljaFxmMVxk KdSuUEZyQTwpC5tqEsPmM0 ZvQGPwFzOcnECpT4yzNDcb HFS4IDSaFG8fnLZuMU39cN Yfn5ynXAuiyBhwtb3fV42k lDPaVAmrfPrwPDLvq59sn2 SxNPAcmeEnsq7xGXBrsaD1 zV0jRYZisQuwBDIpaJHhOG Ymn9AgBJsxzSDvrqTcWVff CMJeBFAzlASbxaE9nnLobh XzuwGvUIPwaSbkDXIfq7Om WVXyOPsny5Qfyn2mxSVzVI LrepXOcXlceJOduQ5jL6Zr MYMyBAGrdm0rRDDwbF7oYA oom3WjpyqxOJZkFAFzBOBh unRxwu7bNEVydVYQKN5XHU odgCQpi4EsivMjG4tLHFE6 NUQwNjYwMjgxKSBleGNlcH AoKUWabm58ECIgkR1klUwl ATEqkL4zsQ3qbRfviN1dZb KqSoMjDZcqXQ7iVHOlF5ai iIBbDOAeGXChI6bqLvFesZ 9jaFxmMVxjZjJcZnMyMFxw YXJ9fQ== Embedded Images (test code = 2038758109) [facility] CenterUrine Plhpjrv9950-82-36 15:22:38* Test Item Value Reference Range Interpretation Comme nts URINE CULTURE (test code = 630-4) No aerobic growth (< 100 CFU/mL) [facility] GLUCOSE (AUTOMATED)2024-03-10 22:10:25* Test Item Value Reference Range Interpretation Comme nts POCT GLU (test code = 4772165300) 174 mg/dL 70-110 H Lab Interpretation (test cod e = 15028-9) Abnormal [facility] GLUCOSE (AUTOMATED)2024-03-10 22:10:25* Test Item Value Reference Range Interpretation Comme nts POCT GLU (test code = 5905928369) 174 mg/dL 70-110 H Lab Interpretation (test cod e = 56852-9) Abnormal [facility] CenterIntubation2024-11-14 20:54:00Erin Quintero CRNA ? ? 03/10/2024 ?3:00 PMIntubationDate/Time: 03/10/2024 2:54 PMUrgency: elective Airway not difficult General Information and Staff Patient location during procedure: ORPerformed: resident/HEALTHCARE BUSINESS ANALYST Performed by: Erin Quintero CRNAAuthorized by: Bong [...] CommentsSmooth, atraumatic, dentition and lips unchanged from pre-op.[facility] GLUCOSE (AUTOMATED)2024-03-10 17:05:26* Test Item Value Reference Range Interpretation Comme nts POCT GLU (test code = 2148361250) 217 mg/dL 70-110 H Lab Interpretation (test cod e = 47587-8) Abnormal [facility] GLUCOSE (AUTOMATED)2024-03-10 17:05:26* Test Item Value Reference Range Interpretation Comme nts POCT GLU (test code = 3191095834) 217 mg/dL 70-110 H Lab Interpretation (test cod e = 29287-0) Abnormal [facility],POST-VOID RES,US,DED-FIVVWEA4973-58-06 22:16:00* Test Item Value Reference Range Interpretation Comme nts PVR (URINE VOLUME) (test code = 5193) 45 ml 0-100 [facility] Urinalysis, Sghfjlailx8068-17-49 20:03:00 * Test Item Value Reference Range [...] clear Lab Interpretation (test cod e = 96902-0) Abnormal [facility] CenterFL TIME OR (NON-REPORTABLE)2024-03-01 20:48:19 These images do not require a Radiology diagnostic report.[facility] Center[facility] (AUT[facility]ATED)2024-03-01 20:32:52* Test Item Value Reference Range Interpretation Comme nts POCT GLU (test code = 4865120991) 143 mg/dL 70-110 H Lab Interpretation (test cod e = 44671-6) Abnormal [facility] CenterElectrophoresis, Sdgfb2405-92-92 19:14:35* Test Item Value Reference Range Interpretation Comme nts T PROTEIN (test code = 1072908855) 7.4 g/dL 6.3-8.2 ALBUMIN (test code = 9967102178) 4.0 g/dL 3.0-4.8 ALPHA 1 (test code = 2410058342) 0.3 g/dL 0.2-0.4 ALPHA 2 (test code = 3488515669) 0.9 g/dL 0.6-1.2 BETA (test code = 8081666556) 1.1 g/dL 0.7-1.4 GAMMA (test code = 9603066617) 1.1 g/dL 1.0-1.8 Electrophoresis Interpretation (test code = 0138586026) Serum protein electrophoresis interpretation: Normal serum protein profile. No M spike present in serum. No urine sample submitted for testing. ? [facility] CenterSmooth Muscle Ab,IgG w/Dwcsci0995-41-86 06:07:40* Test Item Value Reference Range Interpretation Comme nts F-ACTIN (SMOOTH MUSCLE) AB, IGG(BEAKER) (test code = 47995-8) 8 0-19 If F-Actin (Smoo th Muscle) [...] if suspicion for AIH is strong.Performed By: [facility] [place] [address] [id number] Director: Bakari Auguste MD, PhDCLIA Number: [id number] [facility] CenterAnti-SCL-313944-16-52 16:55:51* Test Item Value Reference Range Interpretation Comme nts ANTI-SCL70 (test code = 5382405097) Negative Negative SERGEI (test code = SERGEI) Positive - Antibod y detected.Negative - No antibody detected. Lab Interpretation (test code = 13345-8) Normal [facility] CenterAnti-SSA(RO)2024-02-11 16:55:51* Test Item Value Reference Range Interpretation Comme nts ANTI-SSA(RO) (test code = 8465647776) Negative Negative SERGEI (test code = SERGEI) Positive - Antibod y detected.Negative - No antibody detected. Lab Interpretation (test code = 72952-1) Normal [facility] CenterAnti-SSB(LA)2024-02-11 16:55:51* Test Item Value Reference Range Interpretation Comme nts Anti-SSB(LA) (test code = 4947448575) Negative Negative SERGEI (test code = SERGEI) Positive - Antibod y detected.Negative - No antibody detected. Lab Interpretation (test code = 63512-5) Normal [facility] CenterAnti-Double Stranded KVK2111-89-99 16:55:51* Test Item Value Reference Range Interpretation Comme nts ANTI-DSDNA (test code = 6898161248) 0.0-4.0 SERGEI (test code = SERGEI) Negative ? ?< or = 4 IU/mLPositive ? ? ?> or = 10 IU/mLIndeterminate ?5-9 IU/mL Lab Interpretation (test code = 29892-2) Normal [facility] CenterC4 Iufmglycnq2969-69-57 16:31:38* Test Item Value Reference Range Interpretation Comme nts C4 (test code = 8680313474) 20 mg/dL 20-59 Lab Interpretation (test cod e = 86802-7) Normal [facility] CenterC3 Qkihazbltu4783-78-99 16:31:37* Test Item Value Reference Range Interpretation Comme nts C3 (test code = 4147248200) 95 mg/dL 86-184 Lab Interpretation (test cod e = 77620-3) Normal [facility] CenterIntact PTH Calcium Ethuw2563-08-02 16:25:54* Test Item Value Reference Range Interpretation Comme [facility] PTH-INTACT (test code = 8101538938) 49.6 pg/mL 12.0-88.0 PTH-CA Interpretation (test code = 9182462279) PTH IS Appropria te for Calcium CALCIUM (test code = 8407981631) 9.4 mg/dL 8.6-10.6 [facility] CenterVitamin D, 93-FA0180-59-17 16:24:47* Test Item Value Reference Range Interpretation Comme nts VIT D 25OH (test code = 51999-8) 22 ng/mL 25-80 L SERGEI (test code = SERGEI) Deficiency: <20 ng/mLInsufficiency: 20-24 ng/mLOptimal: 25-80 ng/mL Lab Interpretation (test code = 73905-1) Abnormal [facility] CenterHepatitis B Surface Kzucjgya8826-08-07 23:59:33* Test Item Value Reference Range Interpretation Comme nts HBsAB (test code = 0071616406) Negative HBsAb Semi-Quantitative (test code = 0843290131) 0.70 mIU/mL SERGEI (test code = SERGEI) Interpretation: ?Hepatitis B Surface Antibody ? Negative - Patient is considered to be not immune to infection with HBV. ? ? Positive - Anti-HBs detected at greater than or equal to 12 mIU/mL. ?Patient is considered to be immune to infection with HBV. ? [facility] CenterHcv Xuurwqtk0583-77-25 23:59:33* Test Item Value Reference Range Interpretation Comme [facility] HCV Ab (test code = 53107-8) Negative HCV Semi-Quantitative (test code = 84555-4) 0.01 [facility] CenterHepatitis B Surface Crceerb5934-10-48 23:41:50 * Test Item Value Reference Range Interpretation Comme [facility] HBsAg Semi-Quantitative (richelle t code = 5195-3) 0.12 Negative [facility] CenterGlycosylated Hemoglobin (A1C)2024-02-10 18:34:36* Test Item Value Reference Range Interpretation Comme [facility] HGB A1C (test code = 4548-4) 7.2 % 4.0-5.7 H SERGEI (test code = SERGEI) Reference RangesNormal: <5.7%Prediabetes: 5.7 - 6.4%Diabetes: > 6.5% Lab Interpretation (test code = 10521-2) Abnormal [facility] CenterProstatic Specific Rekzemb3102-64-49 18:19:02 * Test Item Value Reference Range Interpretation Comme [facility] PSA (test code = 6996797120) 0.83 ng/mL <=4.00 SERGEI (test code = SERGEI) Biotin has been reported to cause a negative bias, interpret results relative to patient's use of biotin.[employer] PSA assay was used. ?Results obtained with different test methods or kits may be different and cannot be used interchangeably. Lab Interpretation (test code = 66758-1) Normal [facility] CenterN-Terminal Zur-Smz3870-93-16 17:57:20* Test Item Value Reference Range Interpretation Comme [facility] NT-proBNP (test code = 48643-1) 374 pg/mL <=125 SERGEI (test code = SERGEI) Result Indeterminate-Consid er causes of NT-proBNP elevation other than Heart failure such as acute coronary syndrome, pulmonary embolism, pulmonary hypertension, sepsis, stroke, and renal dysfunction. Lab Interpretation (test code = 16143-6) Abnormal [facility] CenterMagnesium2024-10-16 17:49:37* Test Item Value Reference Range Interpretation Comme nts MAGNESIUM (test code = 0633752631) 1.7 mg/dL 1.7-2.4 Lab Interpretation (test cod e = 60125-8) Normal [facility] CenterPhosphorus2024-10-16 17:49:17* Test Item Value Reference Range Interpretation Comme nts PHOSPHORUS (test code = 8219322480) 3.7 mg/dL 2.5-5.0 Lab Interpretation (test cod e = 26313-8) Normal [facility] CenterUric Efcx5304-39-88 17:49:17* Test Item Value Reference Range Interpretation Comme nts URIC ACID (test code = 5343176638) 8.6 mg/dL 3.6-8.0 H Lab Interpretation (test cod e = 37673-0) Abnormal [facility] CenterMEAS,POST-VOID RES,US,XMO-[id number] 19:32:00* Test Item Value Reference Range Interpretation Comme nts PVR (URINE VOLUME) (test cod e = 5193) 106 ml 0-100 A Lab Interpretation (test cod e = 90787-6) Abnormal [facility] GLUCOSE (AUTOMATED)2024-01-03 05:54:27* Test Item Value Reference Range Interpretation Comme nts POCT GLU (test code = 5406742222) 80 mg/dL 70-110 Lab Interpretation (test cod e = 38872-9) Normal [facility] Glucose (Age >30 Days) - Code Stroke 2024-01-03 05:10:00* Test Item Value Reference Range Interpretation Comme nts POCT Glu (age>30days) (test code = 3342) 80 mg/dL 70-110 Lab Interpretation (test cod e = 03920-7) Normal [facility]MR [facility] WO [id number] 21:20:58EXAM: MR LUMBAR SPINE W WO CONTRAST [...] laminectomy bed, the paraspinal softtissues are unremarkable. [facility] CenterPHYSICIAN [id number] 17:21:57Ordered by an unspecified provider.[facility] Met[facility] (NA, K, CL, CO2, GLUCOSE, BUN, CREATININE, CA)2023-10-23 15:09:40* Test Item Value Reference Range Interpretation Comme nts NA (test code = 6706561579) 136 mmol/L 135-145 K (test code = 3235338318) 4.7 mmol/L 3.5-5.0 CL (test code = 0602017493) 105 mmol/L 98-108 CO2 TOTAL (test code = 9380897689) 27 mmol/L 23-31 AGAP (test code = 6565083932) 4 2-16 BUN (test code = 0297187526) 35 mg/dL 7-23 H GLUCOSE (test code = 8463589679) 204 mg/dL 70-110 H CREATININE (test code = 2160-0) 1.28 mg/dL 0.60-1.25 H CALCIUM (test code = 1822354020) 8.6 mg/dL 8.6-10.6 eGFR (test code = 91068-1) 63.3 mL/min/1.73m2 CKD-EPI eGFR (2020). Assuming creatinine has been stable day-to-day for at least three months, the eGFR indicates Category G2 (60 - 89 mL/min/1.73 m2) Lab Interpretation (test code = 65063-7) Abnormal [facility] CenterCb without [id number] 14:43:35* Test Item Value Reference Range Interpretation [...] 371 150-328 H MPV (test code = 54816-6) 9.9 fL 9.8-13.0 RDW-CV (test code = 788-0) 22.1 % 12.1-15.4 H RDW-SD (test code = 12141-7) 54.4 fL 38.5-51.6 H NRBC x10^3 (test code = 1225348963) See_Comment [Automated messa ge] The system which generated this result transmitted reference range: 10*3/?L. The reference range was not used to interpret this result as normal/abnormal. NRBC/100 WBC (test code = 2430436570) 0.0 0.0-10.0 IPF % (test code = 2012875265) Lab Interpretation (test code = 94799-3) Abnormal [facility] GLUCOSE (AUTOMATED)2023-10-23 12:40:59* Test Item Value Reference Range Interpretation Comme nts POCT GLU (test code = 0829477544) 143 mg/dL 70-110 H Lab Interpretation (test cod e = 19399-8) Abnormal [facility] CenterPrepare Packed RBC (in units), 2 Units 2023-10-23 07:36:57* Test Item Value Reference Range Interpretation Comme nts Cross Match Result (test code = 4409) Compatible ISBT Blood Type Code (test code = 197206) 5100 Unit Blood Type (test code = 4410) O Pos Unit Number (test code = 4411) [id number] Blood Expiration Date & Time (test code = 014044) [id number] Status Information (test code = 4412) Issued Product Identification (test code = 4413) Red Blood Cells Product Code (test code = 4414) [id number] Performed at [facility] B Laboratory Services - [facility] Blood [address] [place], [place] [address] Free: [phone] No. [id number] [facility] CenterGlycosylated Hemoglobin (A1C)2023-10-23 06:46:10* Test Item Value Reference Range Interpretation Comme nts HGB A1C (test code = 4548-4) 7.3 % 4.0-5.7 H SERGEI (test code = SERGEI) Reference RangesNormal: <5.7%Prediabetes: 5.7 - 6.4%Diabetes: > 6.5% Lab Interpretation (test code = 68774-8) Abnormal [facility] GLUCOSE (AUTOMATED)2023-10-23 02:48:30* Test Item Value Reference Range Interpretation Comme nts POCT GLU (test code = 5971941536) 139 mg/dL 70-110 H Lab Interpretation (test cod e = 68539-7) Abnormal [facility] CenterType and Screen - ONCE [id number] 00:27:00 * Test Item Value Reference Range Interpretation Comme nts ABO & RH (test code = 20) O POSITIVE IAT (test code = 1185) Negative [facility] CenterCT ABDOMEN PELVIS WO [id number] 00:19:43EXAM: CT ABDOMEN PELVIS WO CONTRAST HISTORY: [...] Posterior decompressiveprocedure in the lumbar spine at L3-L4.[facility] CenterCBC WITH [id number] 23:30:44* Test Item Value Reference Range Interpretation [...] g/dL 31.2-35.0 L RDW-SD (test code = 52676-4) 41.2 fL 38.5-51.6 RDW-CV (test code = 788-0) 17.5 % 12.1-15.4 H PLT (test code = 777-3) 438 150-328 H MPV (test code = 36577-3) 9.7 fL 9.8-13.0 L NRBC/100 WBC (test code = 5751629303) 0.0 0.0-10.0 NRBC x10^3 (test code = 8898017512) See_Comment [Automated messa ge] The system which generated this result transmitted reference range: 10*3/?L. The reference range was not used to interpret this result as normal/abnormal. SEG % (test code = 01029-7) 63 % 33-76 BAND % (test code = 71375-6) 4 % 0-1 H LYMPH % (test code = 73818-2) 24 % 14-54 MONO % (test code = 69175-3) 6 % 0-4 H EOS % (test code = 92613-9) 3 % 0-3 ANC (test code = 753-4) 7.04 10*3/uL 1.99-6.95 H ELLIPTO/OVAL (test code = 38023-1) 2+ See_Comment A [Automated messa ge] The system which generated this result transmitted reference range: (none). The reference range was not used to interpret this result as normal/abnormal. SCHISTOCYTES (test code = 800-3) 1+ A TARGET CELLS (test code = 86477-6) 2+ See_Comment A [Automated messa ge] The [...] Normal A Lab Interpretation (test code = 90313-4) Abnormal [facility] CenterTROPONIN [id number] 23:08:15* Test Item Value Reference Range Interpretation Comme nts TROPONIN I (test code = 1857736658) <=0.034 SERGEI (test code = SERGEI) Reference [...] of biotin. Lab Interpretation (test code = 34915-2) Normal [facility] CenterN-TERMINAL [id number] 23:06:18* Test Item Value Reference Range Interpretation Comme nts NT-proBNP (test code = 05979-2) 264 pg/mL <=125 SERGEI (test code = SERGEI) Result Indeterminate-Consid er causes of NT-proBNP elevation other than Heart failure such as acute coronary syndrome, pulmonary embolism, pulmonary hypertension, sepsis, stroke, and renal dysfunction. Lab Interpretation (test code = 34949-7) Abnormal [facility] CenterXR CHEST 1 [id number] 22:58:31EXAM: XR CHEST 1 VW 10/22/2023 5:08 PM HISTORY: 63 years-old Male with bowden . TECHNIQUE: Portable AP view of the chest. COMPARISON: 11/11/2022 FINDINGS: Lines and tubes: None. Cardiomediastinal: The cardiomediastinal silhouette is unremarkable. Lungs and pleura: The lungs are clear. No focal consolidation,pneumothorax, or pleural effusion is seen. Included osseous structures show no acute abnormality. [facility]. METABOLIC PANEL (58481)2023-10-22 22:56:38* Test Item Value Reference Range Interpretation Comme nts NA (test code = 4073235396) 138 mmol/L 135-145 K (test code = 7254322521) 4.9 mmol/L 3.5-5.0 CL (test code = 4160278172) 104 mmol/L 98-108 CO2 TOTAL (test code = 7941341813) 24 mmol/L 23-31 AGAP (test code = 2846156275) 10 2-16 BUN (test code = 9474146949) 34 mg/dL 7-23 H GLUCOSE (test code = 3177298410) 159 mg/dL 70-110 H CREATININE (test code = 2160-0) 1.32 mg/dL 0.60-1.25 H TOTAL BILI (test code = 0771155983) 0.6 mg/dL 0.1-1.1 CALCIUM (test code = 4589790317) 9.2 mg/dL 8.6-10.6 T PROTEIN (test code = 3796220238) 7.6 g/dL 6.3-8.2 ALBUMIN (test code = 6703542186) 4.2 g/dL 3.5-5.0 ALK PHOS (test code = 5549578175) 83 U/L 34-122 ALTv (test code = 1742-6) 14 U/L 5-50 AST(SGOT) (test code = 2789228526) 19 U/L 13-40 eGFR (test code = 70824-9) 61.0 mL/min/1.73m2 CKD-EPI eGFR (2020). Assuming creatinine has been stable day-to-day for at least three months, the eGFR indicates Category G2 (60 - 89 mL/min/1.73 m2) Lab Interpretation (test code = 87899-3) Abnormal [facility] CenterCT ABDOMEN PELVIS WO [id number] 07:25:20ORDERING PHYSICIAN: SIENNA PUENTE ABDOMEN AND PELVIS CT WITHOUT INTRAVENOUS [...] in the pelvis.No acute osseous abnormality is identified.[facility] CenterXR HIPS 2 VW [id number] 05:47:52Ordering physician: SIENNA PUENTE INDICATION: Right hip pain COMPARISON: Bilateral hips dated 11/12/2022 FINDINGS: 2 views of the right hip. No acute fracture or dislocation isappreciated. There is mild osteoarthritis, with loss of joint space.[facility] CenterAnti-Nuclear Antibody-Pathologist Uerdxafpqfawqc4893-85-61 23:54:51ANA - Pathologist InterpretationANA HEp-2 IIFA Pathologist [...] MD ?10/03/2023 ?6:51 PM 10/03/2023 6:54 PM [facility] SERVICESCar[facility] CenterAnti-Nuclear Antibody-Pathologist Kqzyflnseqtnky0888-09-03 23:54:51ANA - Pathologist InterpretationANA HEp-2 IIFA Pathologist [...] MD ?10/03/2023 ?6:51 PM 10/03/2023 6:54 PM [facility] CenterAnti-Nuclear Antibody-Pathologist Dbjcobkusehxpw0392-29-01 23:54:51ANA - Pathologist InterpretationANA HEp-2 IIFA Pathologist [...] MD ?10/03/2023 ?6:51 PM 10/03/2023 6:54 PM CDTPRES[facility] CenterAnti-Nuclear Antibody Ohemt5189-85-09 22:26:36 * Test Item Value Reference Range Interpretation Comme nts SATISH Titer by IFA (test code = 7050119505) 1:160 SATISH Pattern (test code = 0763598327) Speckled SERGEI (test code = SERGEI) Anti-nuclear [...] specimen will be held for 7 days. [facility] CenterAnti-Nuclear Antibody Gdwcx5843-35-48 22:26:36 * Test Item Value Reference Range Interpretation Comme nts SATISH Titer by IFA (test code = 5655751068) 1:160 SATISH Pattern (test code = 7033195367) Speckled SERGEI (test code = SERGEI) Anti-nuclear [...] specimen will be held for 7 days. [facility] CenterAnti-Nuclear Antibody Ucmrv3882-12-78 22:26:36 * Test Item Value Reference Range Interpretation Comme nts SATISH Titer by IFA (test code = 5173019050) 1:160 SATISH Pattern (test code = 0449519606) Speckled SERGEI (test code = SERGEI) Anti-nuclear [...] specimen will be held for 7 days. [facility] CenterAnti-Nuclear Antibody Ucqvxu5329-23-18 21:42:54* Test Item Value Reference Range Interpretation Comme nts SATISH (test code = 1545187531) Positive Negative A SERGEI (test code = SERGEI) Negative: ?No Anti-Nuclear Antibodies detected by IFA. Positive: ?SATISH IFA screen performed with a 1:80 dilution in adults and a 1:40 dilution in pediatrics. ?A titer is performed and reported separately when the SATISH is "Positive" or when "Cytoplasmic staining is observed." Lab Interpretation (test code = 21881-6) Abnormal [facility] CenterAnti-Nuclear Antibody Ypfyin4999-42-35 21:42:54* Test Item Value Reference Range Interpretation Comme nts SATISH (test code = 9029460761) Positive Negative A SERGEI (test code = SERGEI) Negative: ?No Anti-Nuclear Antibodies detected by IFA. Positive: ?SATISH IFA screen performed with a 1:80 dilution in adults and a 1:40 dilution in pediatrics. ?A titer is performed and reported separately when the ASTISH is "Positive" or when "Cytoplasmic staining is observed." Lab Interpretation (test code = 22862-9) Abnormal [facility] CenterAnti-Nuclear Antibody Cdlnqj0401-97-92 21:42:54* Test Item Value Reference Range Interpretation Comme nts SATISH (test code = 0326237879) Positive Negative A SERGEI (test code = SERGEI) Negative: ?No Anti-Nuclear Antibodies detected by IFA. Positive: ?SATISH IFA screen performed with a 1:80 dilution in adults and a 1:40 dilution in pediatrics. ?A titer is performed and reported separately when the SATISH is "Positive" or when "Cytoplasmic staining is observed." Lab Interpretation (test code = 00387-6) Abnormal [facility] CenterSedimentation Ewyb1129-99-69 23:25:21* Test Item Value Reference Range Interpretation Comme nts ESR (test code = 68117-6) 36 0-10 H Lab Interpretation (test cod e = 97653-4) Abnormal [facility] [place] [place] Zvds8290-40-35 23:25:21* Test Item Value Reference Range Interpretation Comme nts ESR (test code = 23577-0) 36 0-10 H Lab Interpretation (test cod e = 18398-5) [facility] Alex6370-64-21 23:25:21* Test Item Value Reference Range Interpretation Comme nts ESR (test code = 59607-3) 36 0-10 H Lab Interpretation (test cod e = 35412-5) Abnormal [facility] CenterREFERRAL- REQUEST/AZYPFXRN5709-65-92 13:20:49 Ordered by an unspecified provider.[facility] Hemoglobin A1C Fpjk8558-96-48 14:45:00* Test Item Value Reference Range Interpretation Comme nts POCT HBA1C (test code = 4548-4) 6.8 % 4-6 A Lab Interpretation (test cod e = 63305-8) Abnormal [facility] GLUCOSE (AUTOMATED)2023-05-22 15:10:09* Test Item Value Reference Range Interpretation Comme nts POCT GLU (test code = 3327984025) 304 mg/dL 70-110 H Notified Provide r Lab Interpretation (test code = 30149-3) Abnormal [facility] GLUCOSE (AUTOMATED)2023-05-22 02:46:48* Test Item Value Reference Range Interpretation Comme nts POCT GLU (test code = 6475544597) 293 mg/dL 70-110 H Lab Interpretation (test cod e = 55369-2) Abnormal [facility] GLUCOSE (AUTOMATED)2023-05-22 00:06:57* Test Item Value Reference Range Interpretation Comme nts POCT GLU (test code = 4528778572) 376 mg/dL 70-110 H Lab Interpretation (test cod e = 53549-2) Abnormal [facility] GLUCOSE (AUTOMATED)2023-05-21 21:42:54* Test Item Value Reference Range Interpretation Comme nts POCT GLU (test code = 8022301783) 488 mg/dL 70-110 HH Lab Interpretation (test cod e = 04586-5) Abnormal [facility] GLUCOSE (AUTOMATED)2023-05-21 21:40:58* Test Item Value Reference Range Interpretation Comme nts POCT GLU (test code = 6062698327) 462 mg/dL 70-110 HH Lab Interpretation (test cod e = 64595-1) Abnormal [facility] GLUCOSE (AUTOMATED)2023-05-21 18:42:23* Test Item Value Reference Range Interpretation Comme nts POCT GLU (test code = 9161467093) 373 mg/dL 70-110 H Lab Interpretation (test cod e = 30553-5) Abnormal [facility] GLUCOSE (AUTOMATED)2023-05-21 13:47:47* Test Item Value Reference Range Interpretation Comme nts POCT GLU (test code = 6169801037) 262 mg/dL 70-110 H Lab Interpretation (test cod e = 28009-4) Abnormal [facility] GLUCOSE (AUTOMATED)2023-05-21 13:47:47* Test Item Value Reference Range Interpretation Comme nts POCT GLU (test code = 1692070385) 262 mg/dL 70-110 H Lab Interpretation (test cod e = 63547-2) Abnormal [facility] GLUCOSE (AUTOMATED)2023-05-21 13:02:53* Test Item Value Reference Range Interpretation Comme nts POCT GLU (test code = 6132660506) 252 mg/dL 70-110 H Lab Interpretation (test cod e = 88857-2) Abnormal [facility] GLUCOSE (AUTOMATED)2023-05-21 13:02:53* Test Item Value Reference Range Interpretation Comme nts POCT GLU (test code = 4824657166) 252 mg/dL 70-110 H Lab Interpretation (test cod e = 44674-1) Abnormal [facility] Metabolic Panel (NA, K, CL, CO2, GLUCOSE, BUN, CREATININE, CA)2023-05-21 12:09:31* Test Item Value Reference Range Interpretation Comme nts NA (test code = 4556894684) 136 mmol/L 135-145 K (test code = 8546446500) 4.3 mmol/L 3.5-5.0 CL (test code = 0077251323) 101 mmol/L 98-108 CO2 TOTAL (test code = 4109724443) 28 mmol/L 23-31 AGAP (test code = 3306801188) 7 2-16 BUN (test code = 9936837388) 41 mg/dL 7-23 H GLUCOSE (test code = 4966407500) 272 mg/dL 70-110 H CREATININE (test code = 4132328723) 1.58 mg/dL 0.60-1.25 H CALCIUM (test code = 6587362099) 8.6 mg/dL 8.6-10.6 eGFR (test code = 08665-0) 49.5 mL/min/1.73m2 CKD-EPI eGFR (2020). Assuming creatinine has been stable day-to-day for at least three months, the eGFR indicates Category G3a (45 - 59 mL/min/1.73 m2) Lab Interpretation (test code = 90686-5) Abnormal [facility] Metabolic Panel (NA, K, CL, CO2, GLUCOSE, BUN, CREATININE, CA)2023-05-21 12:09:31* Test Item Value Reference Range Interpretation Comme nts NA (test code = 8172833151) 136 mmol/L 135-145 K (test code = 3277721326) 4.3 mmol/L 3.5-5.0 CL (test code = 6296679669) 101 mmol/L 98-108 CO2 TOTAL (test code = 4908088837) 28 mmol/L 23-31 AGAP (test code = 7246448463) 7 2-16 BUN (test code = 4269560314) 41 mg/dL 7-23 H GLUCOSE (test code = 6378601222) 272 mg/dL 70-110 H CREATININE (test code = 3542859637) 1.58 mg/dL 0.60-1.25 H CALCIUM (test code = 0751301334) 8.6 mg/dL 8.6-10.6 eGFR (test code = 32394-1) 49.5 mL/min/1.73m2 CKD-EPI eGFR (2020). Assuming creatinine has been stable day-to-day for at least three months, the eGFR indicates Category G3a (45 - 59 mL/min/1.73 m2) Lab Interpretation (test code = 94694-4) Abnormal [facility] With [id number] 11:47:46* Test Item Value Reference Range Interpretation [...] g/dL 31.2-35.0 L RDW-SD (test code = 92050-1) 41.4 fL 38.5-51.6 RDW-CV (test code = 788-0) 17.8 % 12.1-15.4 H PLT (test code = 777-3) 301 See_Comment [Automated messa ge] The system which generated this result transmitted reference range: 150 - 328 10*3/?L. The reference range was not used to interpret this result as normal/abnormal. MPV (test code = 76286-2) 9.8 fL 9.8-13.0 NRBC/100 WBC (test code = 3799548091) 0.0 See_Comment [Automated me ssage] The system which generated this result transmitted reference range: 0.0 - 10.0 /100 WBCs. The reference range was not used to interpret this result as normal/abnormal. NRBC x10^3 (test code = 4143216499) See_Comment [Automated messa ge] The system which generated this result transmitted reference range: 10*3/?L. The reference range was not used to interpret this result as normal/abnormal. GRAN MAT (NEUT) % (test code = 770-8) 74.0 % IMM GRAN % (test code = 9684213460) 0.90 % LYMPH % (test code = 736-9) 17.2 % MONO % (test code = 5905-5) 7.1 % EOS % (test code = 713-8) 0.6 % BASO % (test code = 706-2) 0.2 % GRAN MAT x10^3(ANC) (test code = 2484612751) 8.55 10*3/uL 1.99-6.95 H IMM GRAN x10^3 (test code = 5495902095) 0.10 10*3/uL 0.00-0.06 H LYMPH x10^3 (test code = 731-0) 1.98 10*3/uL 1.09-3.23 MONO x10^3 (test code = 742-7) 0.82 10*3/uL 0.36-1.02 EOS x10^3 (test code = 711-2) 0.07 10*3/uL 0.06-0.53 BASO x10^3 (test code = 704-7) 0.01-0.09 Lab Interpretation (test code = 64463-7) Abnormal [facility] With KHWR3092-73-00 11:47:46* Test Item Value Reference Range Interpretation [...] g/dL 31.2-35.0 L RDW-SD (test code = 90982-9) 41.4 fL 38.5-51.6 RDW-CV (test code = 788-0) 17.8 % 12.1-15.4 H PLT (test code = 777-3) 301 See_Comment [Automated GoodThreadsa ge] The system which generated this result transmitted reference range: 150 - 328 10*3/?L. The reference range was not used to interpret this result as normal/abnormal. MPV (test code = 35308-4) 9.8 fL 9.8-13.0 NRBC/100 WBC (test code = 8208772854) 0.0 See_Comment [Automated Vericant ssage] The system which generated this result transmitted reference range: 0.0 - 10.0 /100 WBCs. The reference range was not used to interpret this result as normal/abnormal. NRBC x10^3 (test code = 4556929489) See_Comment [Automated GoodThreadsa ge] The system which generated this result transmitted reference range: 10*3/?L. The reference range was not used to interpret this result as normal/abnormal. GRAN MAT (NEUT) % (test code = 770-8) 74.0 % IMM GRAN % (test code = 4109280586) 0.90 % LYMPH % (test code = 736-9) 17.2 % MONO % (test code = 5905-5) 7.1 % EOS % (test code = 713-8) 0.6 % BASO % (test code = 706-2) 0.2 % GRAN MAT x10^3(ANC) (test code = 4270331059) 8.55 10*3/uL 1.99-6.95 H IMM GRAN x10^3 (test code = 7705224817) 0.10 10*3/uL 0.00-0.06 H LYMPH x10^3 (test code = 731-0) 1.98 10*3/uL 1.09-3.23 MONO x10^3 (test code = 742-7) 0.82 10*3/uL 0.36-1.02 EOS x10^3 (test code = 711-2) 0.07 10*3/uL 0.06-0.53 BASO x10^3 (test code = 704-7) 0.01-0.09 Lab Interpretation (test code = 51303-1) Abnormal [facility] GLUCOSE (AUTOMATED)2023-05-21 09:52:16* Test Item Value Reference Range Interpretation Comme nts POCT GLU (test code = 6231736875) 349 mg/dL 70-110 H Lab Interpretation (test cod e = 89237-9) Abnormal [facility] GLUCOSE (AUTOMATED)2023-05-21 09:52:16* Test Item Value Reference Range Interpretation Comme nts POCT GLU (test code = 9686407122) 349 mg/dL 70-110 H Lab Interpretation (test cod e = 49679-5) Abnormal [facility] GLUCOSE (AUTOMATED)2023-05-21 05:20:31* Test Item Value Reference Range Interpretation Comme nts POCT GLU (test code = 0770589243) 453 mg/dL 70-110 HH Lab Interpretation (test cod e = 46181-0) Abnormal [facility] GLUCOSE (AUTOMATED)2023-05-21 05:20:31* Test Item Value Reference Range Interpretation Comme nts POCT GLU (test code = 7187173059) 453 mg/dL 70-110 HH Lab Interpretation (test cod e = 96784-4) Abnormal [facility] GLUCOSE (AUTOMATED)2023-05-21 02:32:35* Test Item Value Reference Range Interpretation Comme nts POCT GLU (test code = 2248786187) 500 mg/dL 70-110 HH Lab Interpretation (test cod e = 72473-7) Abnormal [facility] GLUCOSE (AUTOMATED)2023-05-21 02:32:35* Test Item Value Reference Range Interpretation Comme nts POCT GLU (test code = 5599161045) 500 mg/dL 70-110 HH Lab Interpretation (test cod e = 98220-5) Abnormal [facility] GLUCOSE (AUTOMATED)2023-05-21 00:06:34* Test Item Value Reference Range Interpretation Comme nts POCT GLU (test code = 5869171832) 539 mg/dL 70-110 HH Lab Interpretation (test cod e = 68380-1) [facility]normal [facility]2023-[facility]-21 00:06:34* Test Item Value Reference Range Interpretation Comme nts POCT GLU (test code = 2780225866) 539 mg/dL 70-110 HH Lab Interpretation (test cod e = 54099-8) Abnormal [facility] CenterABG+COOX+NA+K+GLU+CA2+2023-05-20 22:58:52* Test Item Value Reference Range Interpretation Comme nts PH (test code = 2) 7.42 7.35-7.45 PCO2 (test code = 6630916230) 42 See_Comment [Automated messa ge] The system which generated this result transmitted reference range: 35 - 45 mmHg. The reference range was not used to interpret this result as normal/abnormal. PO2 (test code = 5050480383) 52 See_Comment L [Automated messa ge] The system which generated this result transmitted reference range: 80 - 100 mmHg. The reference range was not used to interpret this result as normal/abnormal. HCO3 (test code = 7042760121) 27 See_Comment H [Automated messa ge] The system which generated this result transmitted reference range: 22 - 26 mEq/L. The reference range was not used to interpret this result as normal/abnormal. BE (test code = 7239097061) 1.9 See_Comment [Automated messa ge] The system which generated this result transmitted reference range: -3.0 - 3.0 mEq/L. The reference range was not used to interpret this result as normal/abnormal. THB (test code = 6008427257) 8.6 g/dL 13.5-18.0 L %O2HB (test code = 7931614932) 82.5 % 94.0-99.0 L %COHB ART (test code = 6048085081) 1.5 % 0.0-1.5 %METHB ART (test code = 5749440120) 0.3 % 0.4-1.5 L VOL%O2 ART (test code = 3067179989) 10.0 % 15.0-23.0 L QUES NA (test code = 6405271355) 138 mmol/L 135-145 K+ (test code = 9944981144) 4.7 mmol/L 3.5-5.0 AC CA IONZ (test code = 9986056315) 4.50 mg/dL 4.50-5.30 GLUCOSE (test code = 0978238548) 264 mg/dL 70-110 H Lab Interpretation (test code = 60986-2) [facility]normal [facility]+COOX+NA+K+GLU+CA2+2023-05-20 22:58:52* Test Item Value Reference Range Interpretation Comme nts PH (test code = 2) 7.42 7.35-7.45 PCO2 (test code = 7293389240) 42 See_Comment [Automated messa ge] The system which generated this result transmitted reference range: 35 - 45 mmHg. The reference range was not used to interpret this result as normal/abnormal. PO2 (test code = 5496956007) 52 See_Comment L [Automated messa ge] The system which generated this result transmitted reference range: 80 - 100 mmHg. The reference range was not used to interpret this result as normal/abnormal. HCO3 (test code = 9223763467) 27 See_Comment H [Automated messa ge] The system which generated this result transmitted reference range: 22 - 26 mEq/L. The reference range was not used to interpret this result as normal/abnormal. BE (test code = 0787280049) 1.9 See_Comment [Automated messa ge] The system which generated this result transmitted reference range: -3.0 - 3.0 mEq/L. The reference range was not used to interpret this result as normal/abnormal. THB (test code = 1377852936) 8.6 g/dL 13.5-18.0 L %O2HB (test code = 4190362689) 82.5 % 94.0-99.0 L %COHB ART (test code = 1679614368) 1.5 % 0.0-1.5 %METHB ART (test code = 6388974628) 0.3 % 0.4-1.5 L VOL%O2 ART (test code = 6223033382) 10.0 % 15.0-23.0 L QUES NA (test code = 5479621563) 138 mmol/L 135-145 K+ (test code = 0823928842) 4.7 mmol/L 3.5-5.0 AC CA IONZ (test code = 9784839374) 4.50 mg/dL 4.50-5.30 GLUCOSE (test code = 9643885375) 264 mg/dL 70-110 H Lab Interpretation (test code = 49825-2) [facility] 22:58:11* Test Item Value Reference Range Interpretation Comme nts HGB A1C (test code = 4548-4) 8.2 % 4.0-5.7 H SERGEI (test code = SERGEI) Reference RangesNormal: <5.7%Prediabetes: 5.7 - 6.4%Diabetes: > 6.5% Lab Interpretation (test code = 99396-9) [facility]normal [facility] 22:58:11* Test Item Value Reference Range Interpretation Comme nts HGB A1C (test code = 4548-4) 8.2 % 4.0-5.7 H SERGEI (test code = SERGEI) Reference RangesNormal: <5.7%Prediabetes: 5.7 - 6.4%Diabetes: > 6.5% Lab Interpretation (test code = 31334-0) [facility]normal [facility]+K+GLU+CA2+2023-05-20 22:52:34* Test Item Value Reference Range Interpretation Comme nts PH (test code = 4577909714) 7.35 7.32-7.42 PCO2 JOE (test code = 2483488635) 50 See_Comment [Automated messa ge] The system which generated this result transmitted reference range: 41 - 51 mmHg. The reference range was not used to interpret this result as normal/abnormal. PO2 JOE (test code = 9207315741) 40 See_Comment [Automated messa ge] The system which generated this result transmitted reference range: 25 - 40 mmHg. The reference range was not used to interpret this result as normal/abnormal. HCO3 JOE (test code = 3071222029) 27 See_Comment [Automated messa ge] The system which generated this result transmitted reference range: 24 - 28 mEq/L. The reference range was not used to interpret this result as normal/abnormal. AC VBE(BEAKER) (test code = 8421024228) 1.0 mEq/L THB JOE (test code = 4502809704) 7.9 g/dL 13.5-18.0 LL %O2HB JOE (test code = 8637163703) 68.2 % 52.0-63.0 H %COHB JOE (test code = 3993416782) 1.3 % 0.0-1.5 %METHB JOE (test code = 4709991484) 0.3 % 0.4-1.5 L VOL%O2 JOE (test code = 7310053983) 7.6 % 6.0-12.0 QUES NA (test code = 9713411866) 156 mmol/L 135-145 H K+ (test code = 0270937902) 3.9 mmol/L 3.5-5.0 AC CA IONZ (test code = 4383798073) 4.20 mg/dL 4.50-5.30 L GLUCOSE (test code = 2329769015) 226 mg/dL 70-110 H Lab Interpretation (test code = 97929-3) [facility]K+GLU+CA2+2023-[facility]-20 22:52:34* Test Item Value Reference Range Interpretation Comme nts PH (test code = 8959690815) 7.35 7.32-7.42 PCO2 JOE (test code = 4520726342) 50 See_Comment [Automated messa ge] The system which generated this result transmitted reference range: 41 - 51 mmHg. The reference range was not used to interpret this result as normal/abnormal. PO2 JOE (test code = 9297548601) 40 See_Comment [Automated messa ge] The system which generated this result transmitted reference range: 25 - 40 mmHg. The reference range was not used to interpret this result as normal/abnormal. HCO3 JOE (test code = 4471035850) 27 See_Comment [Automated messa ge] The system which generated this result transmitted reference range: 24 - 28 mEq/L. The reference range was not used to interpret this result as normal/abnormal. AC VBE(BEAKER) (test code = 4884635920) 1.0 mEq/L THB JOE (test code = 1011746814) 7.9 g/dL 13.5-18.0 LL %O2HB JOE (test code = 5921535821) 68.2 % 52.0-63.0 H %COHB JOE (test code = 7952900889) 1.3 % 0.0-1.5 %METHB JOE (test code = 5023245124) 0.3 % 0.4-1.5 L VOL%O2 JOE (test code = 3445959029) 7.6 % 6.0-12.0 QUES NA (test code = 8462598926) 156 mmol/L 135-145 H K+ (test code = 8892174991) 3.9 mmol/L 3.5-5.0 AC CA IONZ (test code = 8051509145) 4.20 mg/dL 4.50-5.30 L GLUCOSE (test code = 3383886717) 226 mg/dL 70-110 H Lab Interpretation (test code = 25671-4) [facility]normal [facility]+K+GLU+CA2+2023-05-20 22:51:43* Test Item Value Reference Range Interpretation Comme nts PH (test code = 2578122108) 7.46 7.32-7.42 H PCO2 JOE (test code = 3003542535) 36 See_Comment L [Automated messa ge] The system which generated this result transmitted reference range: 41 - 51 mmHg. The reference range was not used to interpret this result as normal/abnormal. PO2 JOE (test code = 0591134072) 87 See_Comment HH [Automated messa ge] The system which generated this result transmitted reference range: 25 - 40 mmHg. The reference range was not used to interpret this result as normal/abnormal. HCO3 JOE (test code = 8437444103) 25 See_Comment [Automated messa ge] The system which generated this result transmitted reference range: 24 - 28 mEq/L. The reference range was not used to interpret this result as normal/abnormal. AC VBE(BEAKER) (test code = 9788623753) 1.2 mEq/L THB JOE (test code = 1525824084) 8.1 g/dL 13.5-18.0 LL %O2HB JOE (test code = 1059619432) 94.7 % 52.0-63.0 H %COHB JOE (test code = 3652473960) 0.9 % 0.0-1.5 %METHB JOE (test code = 7302923347) 0.3 % 0.4-1.5 L VOL%O2 JOE (test code = 7199456859) 10.9 % 6.0-12.0 QUES NA (test code = 3117062430) 136 mmol/L 135-145 K+ (test code = 3699180004) 4.5 mmol/L 3.5-5.0 AC CA IONZ (test code = 0361765094) 4.50 mg/dL 4.50-5.30 GLUCOSE (test code = 7902750280) 210 mg/dL 70-110 H Lab Interpretation (test code = 12358-7) [facility]GLU[facility]CA2+2023-[facility]-20 22:51:43* Test Item Value Reference Range Interpretation Comme nts PH (test code = 8591818863) 7.46 7.32-7.42 H PCO2 JOE (test code = 1440981094) 36 See_Comment L [Automated messa ge] The system which generated this result transmitted reference range: 41 - 51 mmHg. The reference range was not used to interpret this result as normal/abnormal. PO2 JOE (test code = 6205009564) 87 See_Comment HH [Automated messa ge] The system which generated this result transmitted reference range: 25 - 40 mmHg. The reference range was not used to interpret this result as normal/abnormal. HCO3 JEO (test code = 5765624944) 25 See_Comment [Automated messa ge] The system which generated this result transmitted reference range: 24 - 28 mEq/L. The reference range was not used to interpret this result as normal/abnormal. AC VBE(BEAKER) (test code = 8732671528) 1.2 mEq/L THB JOE (test code = 6547299321) 8.1 g/dL 13.5-18.0 LL %O2HB JOE (test code = 5742800700) 94.7 % 52.0-63.0 H %COHB JOE (test code = 0346388812) 0.9 % 0.0-1.5 %METHB JOE (test code = 1909759243) 0.3 % 0.4-1.5 L VOL%O2 JOE (test code = 6713780220) 10.9 % 6.0-12.0 QUES NA (test code = 1700136251) 136 mmol/L 135-145 K+ (test code = 2933924155) 4.5 mmol/L 3.5-5.0 AC CA IONZ (test code = 1105707267) 4.50 mg/dL 4.50-5.30 GLUCOSE (test code = 4862196929) 210 mg/dL 70-110 H Lab Interpretation (test code = 31633-1) [facility]normal [facility]+GLU[facility]CA2+2023-05-20 22:51:08* Test Item Value Reference Range Interpretation Comme nts PH (test code = 2) 7.35 7.35-7.45 PCO2 (test code = 1489823486) 22 See_Comment L [Automated messa ge] The system which generated this result transmitted reference range: 35 - 45 mmHg. The reference range was not used to interpret this result as normal/abnormal. PO2 (test code = 7778672033) 68 See_Comment L [Automated messa ge] The system which generated this result transmitted reference range: 80 - 100 mmHg. The reference range was not used to interpret this result as normal/abnormal. HCO3 (test code = 9842107175) 12 See_Comment L [Automated messa ge] The system which generated this result transmitted reference range: 22 - 26 mEq/L. The reference range was not used to interpret this result as normal/abnormal. BE (test code = 9140615729) -13.0 See_Comment L [Automated messa ge] The system which generated this result transmitted reference range: -3.0 - 3.0 mEq/L. The reference range was not used to interpret this result as normal/abnormal. THB (test code = 7403493479) 2.3 g/dL 13.5-18.0 LL %O2HB (test code = 4245785701) 89.7 % 94.0-99.0 L %COHB ART (test code = 6513372852) 0.5 % 0.0-1.5 %METHB ART (test code = 6204845125) 0.3 % 0.4-1.5 L VOL%O2 ART (test code = 1427345589) 3.1 % 15.0-23.0 L QUES NA (test code = 3681087810) 129 mmol/L 135-145 L K+ (test code = 1702126288) 4.2 mmol/L 3.5-5.0 AC CA IONZ (test code = 1347582838) 4.40 mg/dL 4.50-5.30 L GLUCOSE (test code = 4989312281) 76 mg/dL 70-110 Lab Interpretation (test code = 74055-4) [facility]normal [facility]+GLU+CA2+2023-05-20 22:51:08* Test Item Value Reference Range Interpretation Comme nts PH (test code = 2) 7.35 7.35-7.45 PCO2 (test code = 2540510915) 22 See_Comment L [Automated messa ge] The system which generated this result transmitted reference range: 35 - 45 mmHg. The reference range was not used to interpret this result as normal/abnormal. PO2 (test code = 8500577599) 68 See_Comment L [Automated messa ge] The system which generated this result transmitted reference range: 80 - 100 mmHg. The reference range was not used to interpret this result as normal/abnormal. HCO3 (test code = 6657803495) 12 See_Comment L [Automated messa ge] The system which generated this result transmitted reference range: 22 - 26 mEq/L. The reference range was not used to interpret this result as normal/abnormal. BE (test code = 1648624002) -13.0 See_Comment L [Automated messa ge] The system which generated this result transmitted reference range: -3.0 - 3.0 mEq/L. The reference range was not used to interpret this result as normal/abnormal. THB (test code = 9822710321) 2.3 g/dL 13.5-18.0 LL %O2HB (test code = 5649721788) 89.7 % 94.0-99.0 L %COHB ART (test code = 1893135086) 0.5 % 0.0-1.5 %METHB ART (test code = 2096321883) 0.3 % 0.4-1.5 L VOL%O2 ART (test code = 5064527003) 3.1 % 15.0-23.0 L QUES NA (test code = 8168601551) 129 mmol/L 135-145 L K+ (test code = 1484098886) 4.2 mmol/L 3.5-5.0 AC CA IONZ (test code = 0377794625) 4.40 mg/dL 4.50-5.30 L GLUCOSE (test code = 8527042024) 76 mg/dL 70-110 Lab Interpretation (test code = 51842-8) Abnormal [facility] TIME OR (NON-REPORTABLE)2023-05-20 21:06:30 These images do not require a Radiology diagnostic report.[facility] TIME OR (NON-REPORTABLE)2023-05-20 21:06:30These images do not require a Radiology diagnostic report.[facility] GLUCOSE (AUTOMATED)2023-05-20 14:49:22* Test Item Value Reference Range Interpretation Comme nts POCT GLU (test code = 3543443058) 283 mg/dL 70-110 H Lab Interpretation (test cod e = 65302-9) Abnormal [facility] GLUCOSE (AUTOMATED)2023-05-20 14:49:22* Test Item Value Reference Range Interpretation Comme nts POCT GLU (test code = 3387995566) 283 mg/dL 70-110 H Lab Interpretation (test cod e = 74231-0) Abnormal [facility] Metabolic Panel (NA, K, CL, CO2, GLUCOSE, BUN, CREATININE, CA)2023-05-20 13:45:36* Test Item Value Reference Range Interpretation Comme nts NA (test code = 2468278704) 137 mmol/L 135-145 K (test code = 5388236197) 4.4 mmol/L 3.5-5.0 CL (test code = 6874301153) 101 mmol/L 98-108 CO2 TOTAL (test code = 2071242310) 29 mmol/L 23-31 AGAP (test code = 0218970050) 7 2-16 BUN (test code = 5887096137) 35 mg/dL 7-23 H GLUCOSE (test code = 1292015972) 303 mg/dL 70-110 H CREATININE (test code = 7392187270) 1.32 mg/dL 0.60-1.25 H CALCIUM (test code = 8845599413) 9.2 mg/dL 8.6-10.6 eGFR (test code = 63915-9) 61.4 mL/min/1.73m2 CKD-EPI eGFR (2020). Assuming creatinine has been stable day-to-day for at least three months, the eGFR indicates Category G2 (60 - 89 mL/min/1.73 m2) Lab Interpretation (test code = 39056-5) Abnormal [facility] Metabolic Panel (NA, K, CL, CO2, GLUCOSE, BUN, CREATININE, CA)2023-05-20 13:45:36* Test Item Value Reference Range Interpretation Comme nts NA (test code = 9947774993) 137 mmol/L 135-145 K (test code = 6757545400) 4.4 mmol/L 3.5-5.0 CL (test code = 3449563625) 101 mmol/L 98-108 CO2 TOTAL (test code = 7486978223) 29 mmol/L 23-31 AGAP (test code = 5255471058) 7 2-16 BUN (test code = 5898144502) 35 mg/dL 7-23 H GLUCOSE (test code = 4300042595) 303 mg/dL 70-110 H CREATININE (test code = 2636948431) 1.32 mg/dL 0.60-1.25 H CALCIUM (test code = 5877175126) 9.2 mg/dL 8.6-10.6 eGFR (test code = 45232-8) 61.4 mL/min/1.73m2 CKD-EPI eGFR (2020). Assuming creatinine has been stable day-to-day for at least three months, the eGFR indicates Category G2 (60 - 89 mL/min/1.73 m2) Lab Interpretation (test code = 21664-0) [facility] [id number] 13:29:00* Test Item Value Reference Range Interpretation Comme nts ABO & RH (test code = 20) O POSITIVE IAT (test code = 1185) Negative [facility] [id number] 13:29:00* Test Item Value Reference Range Interpretation Comme nts ABO & RH (test code = 20) O POSITIVE IAT (test code = 1185) Negative [facility] GLUCOSE (AUTOMATED)2023-05-20 13:28:52* Test Item Value Reference Range Interpretation Comme nts POCT GLU (test code = 5945941073) 330 mg/dL 70-110 H Lab Interpretation (test cod e = 24610-0) Abnormal [facility] GLUCOSE (AUTOMATED)2023-05-20 13:28:52* Test Item Value Reference Range Interpretation Comme nts POCT GLU (test code = 6879847925) 330 mg/dL 70-110 H Lab Interpretation (test cod e = 80301-8) Abnormal [facility] and Screen -2023-05-20 05:26:13* Test Item Value Reference Range Interpretation Comme nts ABO & RH (test code = 20) O POSITIVE Performed at [facility] Laboratory Services [facility] Blood [place] [address]Toll Free: [phone] No. [id number] IAT (test code = 1185) Negative Performed at [facility] Laboratory [facility] Blood [place] [address]Toll Free: [phone] No. [id number] [facility] and Screen -2023-05-19 23:33:00* Test Item Value Reference Range Interpretation Comme nts ABO & RH (test code = 20) O POSITIVE IAT (test code = 1185) Negative [facility] and Screen -2023-05-19 23:33:00* Test Item Value Reference Range Interpretation Comme nts ABO & RH (test code = 20) O POSITIVE IAT (test code = 1185) Negative [facility] and Screen -2023-05-19 16:41:00* Test Item Value Reference Range Interpretation Comme nts ABO & RH (test code = 20) O POSITIVE IAT (test code = 1185) Negative [facility] and Screen -2023-05-19 16:41:00* Test Item Value Reference Range Interpretation Comme nts ABO & RH (test code = 20) O POSITIVE IAT (test code = 1185) Negative [facility]19 16:41:00* Test Item Value Reference Range Interpretation Comme nts ABO & RH (test code = 20) O POSITIVE IAT (test code = 1185) Negative [facility] and Screen -2023-05-19 16:41:00* Test Item Value Reference Range Interpretation Comme nts ABO & RH (test code = 20) O POSITIVE IAT (test code = 1185) Negative [facility] and Screen -2023-05-19 16:41:00* Test Item Value Reference Range Interpretation Comme nts ABO & RH (test code = 20) O POSITIVE IAT (test code = 1185) Negative [facility] GLUCOSE (AUTOMATED)2022-11-13 12:26:10* Test Item Value Reference Range Interpretation Comme nts POCT GLU (test code = 3718346817) 124 mg/dL 70-110 H Lab Interpretation (test cod e = 03824-0) Abnormal [facility] GLUCOSE (AUTOMATED)2022-11-13 01:15:00* Test Item Value Reference Range Interpretation Comme nts POCT GLU (test code = 3116622936) 222 mg/dL 70-110 H Lab Interpretation (test cod e = 74970-1) Abnormal [facility] GLUCOSE (AUTOMATED)2022-11-12 22:39:05* Test Item Value Reference Range Interpretation Comme nts POCT GLU (test code = 7370226435) 169 mg/dL 70-110 H Lab Interpretation (test cod e = 02421-9) Abnormal [facility] GLUCOSE (AUTOMATED)2022-11-12 12:37:04* Test Item Value Reference Range Interpretation Comme nts POCT GLU (test code = 5556630874) 75 mg/dL 70-110 Lab Interpretation (test cod e = 85633-7) Normal [facility] (A1C)2022-11-12 12:21:15* Test Item Value Reference Range Interpretation Comme nts HGB A1C (test code = 4548-4) 7.9 % 4.0-5.7 H SERGEI (test code = SERGEI) Reference RangesNormal: <5.7%Prediabetes: 5.7 - 6.4%Diabetes: > 6.5% Lab Interpretation (test code = 66921-8) Abnormal [facility] HEMOGLOBIN A1C [id number] 14:12:00* Test Item Value Reference Range Interpretation Comme nts POCT HBA1C (test code = 4548-4) 8.3 % 4-6 A Lab Interpretation (test cod e = 40073-0) Abnormal [facility] HEMOGLOBIN A1C [id number] 14:12:00* Test Item Value Reference Range Interpretation Comme nts POCT HBA1C (test code = 4548-4) 8.3 % 4-6 A Lab Interpretation (test cod e = 94479-3) Abnormal [facility] HEMOGLOBIN A1C [id number] 16:00:00* Test Item Value Reference Range Interpretation Comme nts POCT HBA1C (test code = 4548-4) 7.4 % 4-6 A Lab Interpretation (test cod e = 34973-4) Abnormal [facility] HEMOGLOBIN A1C [id number] 16:00:00* Test Item Value Reference Range Interpretation Comme nts POCT HBA1C (test code = 4548-4) 7.4 % 4-6 A Lab Interpretation (test cod e = 22750-7) Abnormal [facility] Consult Notes Date/Time Note Provider Source 2023-05-21 11:24:00 Associated Order(s): CONSULT ADULT OCCUPATIONAL THERAPY OT GENERAL EVALUATION Consult received via [employer], EMR reviewed and evaluation completed 05/21/23. Patient [...] N/A 11/04/2019 Surgeon: Essie Guerra MD; Location: [facility] OR Location ESOPHAGOGASTRODUODENOSCOPY N/A 11/04/2019 Surgeon: Essie Guerra MD; Location: [facility] OR Location LAMINECTOMY LUMBAR (SHX) Bilateral 05/20/2023 Surgeon: Hector Michaels MD; Location: [facility] OR LOCATION LASIK (LASER IN SITU KERATOMILEUSIS) PAIN: Pain Location: lower back Pain rating before treatment: 4, After treatment: 4 Pain Management: Reports taking pain meds OCCUPATIONAL ROLES/HOME ENVIRONMENT: Home environment: Lives with spouse who works but states daughter may check on him, 17/11 supervision/assistance is not available, and Single story home. 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 [employer] [facility] 2023-05-21 09:07:00 Associated Order(s): CONSULT ADULT PHYSICAL [...] my care and that I had a mgdw-ry-zhqh encounter with this patient on: 05/21/2023 . [...] N/A 11/04/2019 Surgeon: Essie Guerra MD; Location: [facility] OR Location ESOPHAGOGASTRODUODENOSCOPY N/A 11/04/2019 Surgeon: Essie Guerra MD; Location: [facility] OR Location LAMINECTOMY LUMBAR (SHX) Bilateral 05/20/2023 Surgeon: Hector Michaels MD; [facility] (LASER IN SITU KERATOMILEUSIS) [...] before and after session COMMUNICATION Primary Language: [place] Able to Verbalize needs: Yes Vision:glasses Hearing:good; [...] min Dalia Acuña PT, DPT License # [id number] [employer] Dalia Acuña PT [facility] 2023-05-20 14:01:59 Associated Order(s): CONSULT SURGICAL CO-MANAGEMENT [...] November 13 2022 with chest pain at [facility], at that time he had acute kidney [...] them yet with his upcoming surgery. His biologist aide is Dr. Hernandez, he states he was previously on Mounjaro but his insurance stopped covering this. He currently denies any chest pain, shortness of breath, nausea, vomiting or other symptoms. Last bowel movement was yesterday. He states he was never diagnosed with sleep apnea in the past. Daughter also at bedside. States his last drink was approximately 2 weeks ago. SCM consulted for assistance with medical management and [...] N/A 11/04/2019 Surgeon: Essie Guerra MD; Location: [facility] OR [facility] ESOPHAGOGASTRODUODENOSCOPY N/A 11/04/2019 Surgeon: Essie Guerra MD; Location: [facility] OR [facility] LASIK (LASER IN SITU KERATOMILEUSIS) Social History [...] 25 mg tablet 03/23/23 Yes Doctor Unassigned, [place] mirtazapine 15 mg tablet 03/15/23 Yes Doctor Unassigned, [place] pantoprazole 40 mg EC tablet 05/07/23 Yes Doctor Unassigned, [place] lisinopriL 40 mg tablet Take 1 tablet by mouth in the morning and 1 tablet in the evening. Yes Doctor Unassigned, [place] glipiZIDE XL 10 mg 24 hr tablet TAKE 1 TABLET BY MOUTH TWICE A DAY (MORNING AND EVENING) WITH MEALS 04/13/23 Yes Kevin Mayes MD atorvastatin 40 mg tablet Take 1 tablet by mouth at bedtime. 12/19/22 12/19/23 Yes Erin Kim MD metformin ER 500 mg 24 hr tablet TAKE 2 TABLETS BY MOUTH TWICE DAILY WITH MEALS 09/30/22 Yes Kevin Mayes MD pioglitazone 30 mg tablet Take 1 tablet by mouth in the morning. 09/30/22 Yes Kevin Mayes MD ALPRAZolam 2 mg tablet 02/27/22 Yes Doctor Unassigned, [place] famotidine 40 mg tablet 02/27/22 Yes Doctor Unassigned, [place] HYDROcodone-acetaminophen 10-325 mg tablet TAKE 1 TABLET BY MOUTH TWICE DAILY AND 1/2 TABLET IN THE AFTERNOON. 01/01/21 Yes Doctor Unassigned, [place] amLODIPine 10 mg tablet Take 1 tablet by mouth daily. Appointment needed for further refills. Please contact office. 07/30/20 Yes Jade To MD tamsulosin 0.4 mg 24 hr capsule Take 1 capsule by mouth at bedtime. 02/01/20 Yes Bettye Parson MD insulin degludec (TRESIBA FLEXTOUCH U-100) 100 unit/mL (3 mL) InPn inject 20 Units under the skin every morning. 05/18/23 Kevin Mayes MD Insulin [place], Disposable, (PEN NEEDLE) 31 gauge x 5/16" Ndle Use as directed once a day 05/16/23 Kevin Mayes MD dulaglutide (TRULICITY) 4.5 mg/0.5 mL PnIj inject 1 Pen under the skin weekly. 05/15/23 Kevin Mayes MD ljiyxvm-jjgbxxzyskkqe-nexrzk ne (EXCEDRIN MIGRAINE) 250-250-65 mg per tablet Take 2 tablets by mouth as needed for Pain. Doctor Unassigned, [place] blood sugar diagnostic (BLOOD GLUCOSE TEST) strip Use daily. Dx E11.65 03/28/22 Esha Orourke FNP Blood-Glucose Meter Misc Use daily. Dx E11.65 03/28/22 Esha Orourke FNP lancets 30 gauge Misc Use daily. Dx E11.65 03/28/22 Esha Orourke FNP syringe-needle,safety,disp unt 1.5 mL 22 gauge x 1 1/2" Syrg Use as directed with testosterone injection once [id number] 11/30/18 Kevin Mayes MD Current Medications: Scheduled meds:[START ON [...] none Allison Goldberg MD, Surgical Co-Management Hospitalist [facility] General Internal Medicine Portions of this note were created using a voice-recognition transcribing system. Typographical errors and incorrect words or phrases may have been missed during proofreading. Please interpret accordingly. [facility] 2022-11-12 07:50:38 Associated Order(s): CONSULT CARDIOLOGY [facility] Cardiology Consult Note Patient: Lilly Zheng Date of : 1960 Date of service: 11/12/2022 Primary Care Physician: Samson Perdomo CHIEF COMPLAINT: Chief Complaint Patient presents [...] diabetes, hypertension, and osteoarthritis. [facility] [facility] 2019. Previous Cardiac Studies: [...] N/A 11/04/2019 Surgeon: Essie Guerra MD; Location: [facility] OR [facility] ESOPHAGOGASTRODUODENOSCOPY N/A 11/04/2019 Surgeon: Essie Guerra MD; Location: [facility] OR Location LASIK (LASER IN SITU KERATOMILEUSIS) Family History [...] mg capsule Comments: Reason for Stopping: Insulin [place], Disposable, (PEN NEEDLE) 31 gauge x 5/16" [...] Omar Almeida MD, 40 mg at 11/12/22 0853 tamsulosin (FLOMAX) capsule 0.4 mg, 0.4 mg, Oral, QHS, Omar Almeida MD acetaminophen (TYLENOL) tablet 650 mg, 650 mg, Oral, Q6HPRN, Omar Almeida MD aspirin chewable tablet 81 mg, 81 mg, Oral, DAILY, Omar Almeida MD, 81 mg at 11/12/22 0853 atorvastatin (LIPITOR) tablet 40 mg, 40 mg, Oral, QPM, Omar Almeida MD docusate (COLACE) capsule 100 mg, 100 mg, Oral, DAILY, Omar Almeida MD, 100 mg at 11/12/22 0853 enoxaparin (LOVENOX) injection 40 mg, 40 mg, Subcutaneous, DAILY, Omar Almeida MD, 40 mg at 11/12/22 0852 metoprolol tartrate (LOPRESSOR) tablet 12.5 mg, 12.5 [...] LDL CHOL (mg/dL) Date Value 09/30/2022 150 HPX-PLKAQPBRIDB-D (mg/dL (calc)) Date Value 12/08/2017 135 (H) [...] LDL CHOL (mg/dL) Date Value 09/30/2022 150 WIO-QHLTXJTZNXG-L (mg/dL (calc)) Date Value 12/08/2017 135 (H) Recent Labs 11/12/22 0504 TROPNI 0.005 Recent Labs 09/30/22 1044 TRIG 164 LDL CHOL (mg/dL) Date Value 09/30/2022 150 GUL-WXILAOESWPN-X (mg/dL (calc)) Date Value 12/08/2017 135 (H) [...] LDL CHOL (mg/dL) Date Value 09/30/2022 150 VLB-CTSFLQEEMWG-N (mg/dL (calc)) Date Value 12/08/2017 135 (H) Last Two A1C Results ([facility]/LC, POCT, [facility]) Recent Labs 03/28/22 0956 09/30/22 0912 11/12/22 0437 HGBA1C -- -- 7.9* [id number] 7.4* 8.3* -- History of KAYLA KAYLA--Moderate [...] feel free to call our office at [phone]. I would be happy to be of further assistance for Lilly Zheng wellbeing. Voice recognition software has been used to create portions of this document. An attempt to proofread has been made to minimize errors. Please do not hesitate to call with any questions. Ajay Jaffe MD [facility], Division of Cardiology [facility] T [facility] - Health History and Physical Notes Date/Time Note Provider Source 2024-07-14 07:24:13 Date: 07/14/2024 TIME: 7:24 AM PATIENT NAME: Lilly Zheng Age: [age] year old Race: /White SEX: male Referring Physician: Marc Rodriguez MD Indication of Cardiac Catheterization: BOWDEN , positive MPI HPI: Lilly Zheng is a 63 years old male with history of obesity, DM, and HTN. Seen with BOWDEN and had positive MPI Current Status: Mallampati: III (only soft palate and only base of uvula) [employer] Functional Class: II ASA Status: III [place] Angina Heart Class: II PCI CHECKLIST History of prior PCI?: No Previous Coronary Artery Bypass Graph: No. IV contrast used within the past 72 hours?: No Did the patient have a Stroke or TIA ?: No Candidacy for VALERY Is the patient anemic?: Yes Major surgery in the past month or in the next year?: No History of clinically overt or suspected bleeding?: No Is the patient on chronic anticoagulation (e.g. Warfarin, NOAC)?: No. History of medication non-adherence?: No Is the patient is willing to afford prolonged dual antiplatelet therapy if uninsured?: Yes Allergies Lilly Zheng has No Known Allergies.. Contrast allergy?: No. Aspirin allergy?: No. Intolerance to Aspirin due to peptic ulcer disease?: Yes Heparin allergy (HIT)?: No. Latex allergy?: No. Medications: Current Facility-Administered Medications Medication Dose Route Frequency Last Rate Last Admin dextrose 10 % in water (D10W) IV infusion IV Infusion TITRATE No current facility-administered medications on file prior to encounter. Current Outpatient Medications on File Prior to Encounter Medication Sig Dispense Refill aspirin 81 mg chewable tablet Take 1 tablet by mouth in the morning. atorvastatin 40 mg tablet Take 1 tablet by mouth at bedtime. 30 tablet 6 metoprolol succinate XL 25 mg 24 hr tablet Take 1 tablet by mouth in the morning. 30 tablet 6 insulin degludec (TRESIBA FLEXTOUCH U-100) 100 unit/mL (3 mL) InPn inject 30 Units under the skin at bedtime. IF BLOOD SUGAR 80-120 GIVE 14 UNITS & DO NOT TAKE IF BS<80 30 mL 2 diazePAM (VALIUM) 5 mg tablet Take 1 tablet by mouth 2 (two) times daily as needed for Anxiety. 2 tablet 0 blood sugar diagnostic (ONETOUCH VERIO TEST STRIPS) strip USE TO TEST BLOOD SUGAR 3 TIMES A DAY DIRECTED 50 Each 8 cephALEXin 250 mg capsule Take 2 capsules by mouth every 12 (twelve) hours. 20 capsule 0 Blood-Glucose Sensor (Eureka G7 SENSOR) Jean Carlos 1 Each by subcutaneous (via wearable injector) route every 10 (ten) days. Use as directed 4 Each 4 sucralfate 1 gram tablet Take 1 tablet by mouth before meals and at bedtime. pantoprazole 40 mg EC tablet Take 1 tablet by mouth in the morning. meclizine 25 mg tablet Take 1 tablet by mouth every 6 (six) hours. 20 tablet 0 ondansetron 4 mg disintegrating tablet Take 1 tablet by mouth every 4 (four) hours as needed for Nausea and Vomiting (N/V). 20 tablet 0 famotidine 20 mg tablet Take 1 tablet by mouth at bedtime. metoclopramide HCl 10 mg tablet Take 1 tablet by mouth every 6 (six) hours as needed. metformin ER 500 mg 24 hr tablet Take 2 tablets by mouth in the morning and 2 tablets in the evening. Take with meals. 180 tablet 6 pioglitazone 30 mg tablet Take 1 tablet by mouth every morning. 90 tablet 3 methocarbamoL 500 mg tablet Take 1 tablet by mouth every 6 (six) hours as needed for Pain (scale 7-10). 20 tablet 0 methocarbamoL 500 mg tablet Take 1 tablet by mouth every 6 (six) hours as needed for Pain (scale 7-10) (MUSCLE SPASM). 20 tablet 0 Blood-Glucose Meter (HolganixUCH VERIO FLEX METER) Misc Use as directed 1 Each 0 lancets (QuintesocialTOUCH DELICA PLUS LANCET) 33 gauge Misc Use as directed to check blood sugar 3 times a day for diagnosis of Type 2 DM, e11.65 100 Each 2 montelukast 10 mg tablet Take 1 tablet by mouth. hydroCHLOROthiazide 25 mg tablet Take 1 tablet by mouth every morning and evening. mirtazapine 15 mg tablet Take 1 tablet by mouth at bedtime. Insulin [place], Disposable, (PEN NEEDLE) 31 gauge x 5/16" Ndle Use as directed once a day 100 Each 3 qbeougk-scjnonenhfogy-lqkqmual (EXCEDRIN MIGRAINE) 250-250-65 mg per tablet Take 2 tablets by mouth as needed for Pain. lisinopriL 40 mg tablet Take 1 tablet by mouth in the morning. ALPRAZolam 2 mg tablet Take 1 tablet by mouth as needed. HYDROcodone-acetaminophen 10-325 mg tablet 1 tablet every 8 (eight) hours as needed. amLODIPine 10 mg tablet Take 1 tablet by mouth daily. Appointment needed for further refills. Please contact office. 30 tablet 3 tamsulosin 0.4 mg 24 hr capsule Take 1 capsule by mouth at bedtime. 90 capsule 4 Did the patient take aspirin with in the past 24 hours?: Yes Did the patient take clopidogrel, prasugrel or ticagrelor within the past 24 hours?: No Did the patient take metformin within the past 24 hours?: No Did the patient take sildenafil (or other PDE5 inhibitor) within the past 24 hours?: No Did the patient receive LMWH within the past 12hours?: No. Is the patient on chronic anticoagulation?: No. Informed Consent: Out of Hospital DNR: No Did the patient agree to emergent CABG?: Yes Is the patient DNR or DNI?: No. Sedation, Anesthesia and Analgesia: Are ASA and Mallampati Class documented? Yes Is there any contraindication to sedation present? No Current History: Past Medical History: Diagnosis Date Diabetes HTN (hypertension) Physical Exam: Vitals: Mr. Zheng height is 1.676 m (5' 6") and weight is 92.1 kg (203 lb). His blood pressure is 179/72 (abnormal) and his pulse is 73. His respiration is 12 and oxygen saturation is 99%. General: alert and oriented x 4 (person, place, date/time and situation); no apparent distress HEENT: pupils equal, round, reactive to light; extraocular movements intact; oropharynx clear; moist mucous membranes, normocephalic atraumatic Neck: supple, no lymphadenopathy, no bruits, no JVD, full range of motion Lungs: clear to auscultation bilaterally Cardio: S1, S2 normal, regular; no murmurs, rubs or gallops Abdomen: soft; non-tender; non-distended; normoactive bowel sounds Extremities: no clubbing, cyanosis, or edema Skin: no rashes Pulses: Radial: Right: + Barbeau Test: Type A LABS / DATA: HGB (g/dL) Date Value 07/07/2024 8.7 (L) HCT (%) Date Value 07/07/2024 29.7 (L) K (mmol/L) Date Value 07/07/2024 4.9 CREATININE (mg/dL) Date Value 07/07/2024 1.21 No results found for: "PATPT" No results found for: "PTSEC" APTT Patient (Seconds) Date Value 07/07/2024 34 eGFR (mL/min/1.73m2) Date Value 07/07/2024 67.7 eGFR Calculation () (mL/min/1.73m2) Date Value 07/20/2020 97.5 No results found for: "PREGSERUM" No results found for: "PREGURINE" Impressions: Planned procedure: LHC/CORS Access: RR Contrast: Omni Consent obtained (<72 hours): yes The sedation pre-assessment was discussed and I concurred with the plan for sedation or anesthesia as captured in the flowsheet pre-assessment rows by the nurse. The benefits, alternatives, and risks including but not limited to pain, bleeding, infection, damage to the heart, lung, and/or blood vessels requiring surgery, kidney failure, heart attack, stroke, or were discussed in detail with the patient. The patient expressed understanding and are agreeable to proceed with the recommendations. Case discussed with , Faculty. Bola Hong MD Director Of Resource Development Associated attestation - Marc Rodriguez MD - 07/14/2024 7:44 AM CDT I agree. CARDIOVASCULAR DISEASE [facility] 2024-03-10 12:25:21 UROLOGY HISTORY AND PHYSICAL NOTE [...] 4 mL 4 Taking blood sugar diagnostic (HolganixUCH VERIO TEST STRIPS) strip Use as directed to check blood sugar 3 times daily for Type 2 diabetes mellitus 200 Strip 2 Taking Blood-Glucose Meter (HolganixUCH VERIO FLEX METER) Misc Use as directed 1 Each 0 Taking lancets (Myworldwall DELICA PLUS LANCET) 33 gauge Misc Use as directed to check blood sugar 3 times a day for diagnosis of Type 2 DM, e11.65 100 Each 2 Taking hydroCHLOROthiazide 25 mg tablet Take 1 tablet by mouth every morning and evening. Taking mirtazapine 15 mg tablet Take 1 tablet by mouth at bedtime. Taking Insulin [place], Disposable, (PEN NEEDLE) 31 gauge x 5/16" Ndle Use as directed once a day 100 Each 3 Taking wacmtbd-nxqiwwbckirqk-lmhhfzak (EXCEDRIN MIGRAINE) 250-250-65 mg per tablet Take [...] bedtime. 90 capsule 4 Taking Blood-Glucose Sensor (Eureka G7 SENSOR) Jean Carlos 1 Each by subcutaneous (via wearable injector) [...] N/A 11/04/2019 Surgeon: Essie Guerra MD; Location: [facility] OR Location ESOPHAGOGASTRODUODENOSCOPY N/A 11/04/2019 Surgeon: Essie Guerra MD; Location: [facility] OR Location LAMINECTOMY LUMBAR (SHX) Bilateral 05/20/2023 Surgeon: Hector Michaels MD; Location: [facility] OR LOCATION LASIK (LASER IN SITU [...] Friends and Family: Not on file Attends Sabianism Services: Not on file Active Member of [...] failure, stones recurrent infection, and need for mcc catheter) CIC, surgical options: TURP, ThuLVP to alleviate the obstruction and attempt improve LUTS and avoid risk of complications from mcc [place]. Possible adverse events recognized with TURP [...] confirmed consent for HoLEP Plan: OR today Bettye Parson MD [facility] 2023-10-22 22:32:58 Medicine History & Physical Date [...] weekly. 4 mL 4 blood sugar diagnostic (HolganixUCH VERIO TEST STRIPS) strip Use as directed to check blood sugar 3 times daily for Type 2 diabetes mellitus 200 Strip 2 Blood-Glucose Meter (HolganixUCH VERIO FLEX METER) Misc Use as directed 1 Each 0 Blood-Glucose Meter,Continuous (FREESTYLE PEPPER 3 READER) Misc Use as directed 1 Each 0 Blood-Glucose Sensor (FREESTYLE PEPPER 3 SENSOR) Jean Carlos Use as directed every 2 weeks 6 Each 4 lancets (HolganixUCH DELICA PLUS LANCET) 33 gauge Misc Use [...] tablet pantoprazole 40 mg EC tablet Insulin [place], Disposable, (PEN NEEDLE) 31 gauge x 5/16" Ndle Use as directed once a day 100 Each 3 pgerygc-faixnvztuhvpu-bbeiatea (EXCEDRIN MIGRAINE) 250-250-65 mg per tablet Take [...] Use as directed with testosterone injection once B1avwlt 10 Syringe 2 I have reviewed the [...] tablet 650 mg, 650 mg, Oral, Q6HPRN, Delonte Kim MD [START ON 10/23/2023] amLODIPine (NORVASC) tablet 10 mg, 10 mg, Oral, DAILY, Delonte Kim MD atorvastatin (LIPITOR) tablet 40 mg, 40 mg, Oral, QHS, Delonte Kim MD dextrose 50 % in water (D50W) injection 25 mL, 25 mL, Slow IV Push, PRN, Delonte Kim MD glucagon (GLUCAGEN DIAGNOSTIC KIT) injection 1 mg, 1 mg, Intramuscular, PRN, Delonte Kim MD HYDROcodone-acetaminophen (NORCO 5) 5-325 mg tablet 1 tablet, 1 tablet, Oral, Q6HPRN, Delonte Kim MD [START ON 10/23/2023] insulin glargine (LANTUS U-100) injection 15 Units, 15 Units, Subcutaneous, DAILY, Delonte Kim MD lisinopriL (PRINIVIL,ZESTRIL) tablet 20 mg, 20 mg, Oral, BID, Delonte Kim MD mirtazapine (REMERON) tablet 15 mg, 15 mg, Oral, QHS, Delonte Kim MD [START ON 10/23/2023] montelukast (SINGULAIR) tablet 10 mg, 10 mg, Oral, DAILY, Delonte Kim MD morphine (2 mg/mL) injection 2 mg, 2 mg, Slow IV Push, Q4HPRN, Delonte Kim MD NaCl 0.9% (NS) IV Line Priming and Flushing Fluid Only 250 mL, 250 mL, IV Infusion, ONCE, Crystal Marks, ERP MANAGER ondansetron (ZOFRAN (PF)) injection 4 mg, 4 mg, Slow IV Push, Q6HPRN, Delonte Kim MD pantoprazole (PROTONIX) EC tablet 40 mg, 40 mg, Oral, QAM-0600, Delonte Kim MD [START ON 10/23/2023] Sliding Scale Insulin - Lispro (HumaLOG), , Subcutaneous, TID MEALS+HS, Delonte Kim MD tamsulosin (FLOMAX) capsule 0.4 mg, 0.4 mg, Oral, QHS, Delonte Kim MD Objective: Vitals: Vitals: 10/22/23 1900 10/22/23199910/22/238 10/22/23 2208 BP: (!) 183/69 (!) 156/47 (!) 166/67 Pulse: 79 75 Resp: 18 13 Temp: 36.6 ?C (97.9 ?F) TempSrc: Oral SpO2: 100% 97% Weight: 92 kg (202 lb 12.8 oz) Height: I/O's: No intake or output data in the 24 hours ending 10/22/23 5935 Physical Exam: Constitutional: A&O x3, obese and [...] WO CONTRAST Result Date: 10/05/2023 ORDERING PHYSICIAN: SIENNA PUENTE ABDOMEN AND PELVIS CT WITHOUT INTRAVENOUS [...] VW RIGHT Result Date: 10/05/2023 Ordering physician: SIENNA PUENTE INDICATION: Right hip pain COMPARISON: Bilateral hips dated 11/12/2022 FINDINGS: 2 views of the right hip. No acute fracture or dislocation is appreciated. There is mild osteoarthritis, with loss of joint space. Mild osteoarthritis of the right hip without acute fracture or dislocation appreciated. RL: 460 [facility]: 16021 HAND 3+ VW RIGHT Result Date: 10/02/2023 [...] code Former tobacco user (Z71.6) Disposition: Home [facility] 2023-05-20 08:40:28 Orthopaedic Pre-Operative Note 05/20/2023 8:40 [...] possible need for blood transfusions, damage to nerves/arteries/veins/tendons/bone s/skin/muscle/ligaments, paralysis, need for further surgeries, blood clots [...] Left quadriceps weakness. Davy Michaels MD, SELVIN, [facility] Orthopaedic Surgery Department of Orthopaedic Surgery and [...] receiving the proposed care, treatment, and services. [facility] 2023-05-20 08:32:40 Orthopedic Surgery History and Physical [...] Lilly Zheng : 1960 Primary Care Provider: Samson Perdomo [address] [facility] [address] History: The patient is a 62 year old /White male with Chief Complaint of back pain. I personally reviewed the clinic form completed by the patient today and checked its accuracy during the visit. The form is uploaded on [employer] and is available upon request. It consists [...] N/A 11/04/2019 Surgeon: Essie Guerra MD; Location: [facility] OR [facility] ESOPHAGOGASTRODUODENOSCOPY N/A 11/04/2019 Surgeon: Essie Guerra MD; Location: [facility] OR Location LASIK (LASER IN SITU KERATOMILEUSIS) [...] FLEXTOUCH U-100) 20 Units, Subcutaneous, QAM Insulin [place], Disposable, (PEN NEEDLE) 31 gauge x 5/16" [...] Use as directed with testosterone injection once U5pdjzj tamsulosin (FLOMAX) 0.4 mg, Oral, QHS Review [...] preop visit. Davy Michaels MD, SELVIN, FAAOS [facility] Orthopaedic Surgery Department of Orthopaedic Surgery and Rehabilitation 04/23/2023 2:08 PM [facility] 2022-11-11 23:52:34 [facility] Hospitalist Admission H&P Date of Service: [...] his left leg. Patient had driven to [place] from his home in [place], [place]. He states he was with a [...] N/A 11/04/2019 Surgeon: Essie Guerra MD; Location: [facility] OR [facility] ESOPHAGOGASTRODUODENOSCOPY N/A 11/04/2019 Surgeon: Essie Guerra MD; Location: [facility] OR [facility] LASIK (LASER IN SITU KERATOMILEUSIS) ALLERGIES No [...] Use as directed with testosterone injection once V3xjgtr TAMSULOSIN 0.4 MG 24 HR CAPSULE Take [...] morphine for pain 6. Lipid profile 7. Speed Runner re: alcohol abuse and cocaine use. 8. [...] given high risk of morbidity and mortality. [place] VACUUM FORM OPERATOR was verified during stay Omar Almeida MD T [facility] Procedure Notes Date/Time Note Provider Source 2024-07-14 07:49:04 Left Heart Cath/Coronary Angiography/FFR of the OM1 not significant Lilly Zheng 7:49 AM Attending faculty: Marc Rodriguez MD Fellow: Dr Hong Referring Physician: Dr To Procedures Performed: [facility] Coronary angiogram FFR of the OM1 not significant (baseline 0.94 and peak with 140 mcg/kg/min adenosine infusion 0.92) Indication/Diagnosis: positive stress test 63 yo male with DM II, HTN, KAYLA, obesity, Anemia/GIB/PUD, low back surgery, c/o BOWDEN/CP. Labs anemia, MIBI 05/24/24: inferior ischemia, ECHO 11/12/22; LVEF normal Consent: Risks, benefits, alternatives and complications of the procedure discussed with the self, who understood and agreed to proceed. Aseptic technique: Chlorprep Local Anesthesia: 1% lidocaine without epinephrine Sedation: Moderate Access site: Arterial: Right radial artery Closure Method: Arterial: TR band Sterile dressing: yes Complications: none Procedures: After patient identification/verification, the patient was thereafter transferred to the computer lab assistant table. The access site was prepped and draped in usual sterile fashion. After administering sedation, time out was done. Under ultrasound guidance, using Seldinger technique, the Right radial artery was accessed and a Fr sheath was introduced into the artery. A5 Fr TIG 4.0 catheter was used to cannulate the LM. Selective coronary angiography was done using several views. A 5 Fr TIG 4.0 was used to cross the AV with the J wire and the catheter was advanced into the LV where selective LVEDP 11 was measured. The catheter was then used to cannulate the RCA and selective coronary angiography was done using multiple views. 6Fr EBU 3 guide to LM, FFR to OM1, no drift, TR band (heparin) The attending physician was present throughout the procedure and provided the highest level of supervision. Findings: Coronary dominance: right Left main: mild LI LAD: large vessel mild LI, D1-2-3 mild LI LCX: mild LI, OM1 large bifurcating vessel 40% (FFR not significant, post no changes, DANE III flow) RCA: dominant vessel mild LI, RPDA mild LI, RPLB1 mild LI LVEDP: 9 mmHg Post-Procedure Sedation Addendum Immediately prior to start of sedation, the patient was evaluated and there was no change from the pre-procedure evaluation. I was present and directed medical care. The patient underwent moderate sedation for the procedure. The medications administered were recorded in the MAR; oxygenation, ventilation and circulation were monitored continuously and were recorded in the EMR. I evaluated the patient after the procedure. The patient was evaluated immediately as recovering from sedation. Complications: None Impression/plan: -Mild to moderate OM1 stenosis, FFR not significant. Recommend aggressive risk factor modification and medical Rx. D/c home per same day discharge protocol. D/w pt in detail. F/u with Dr To as planned. Marc Rodriguez MD 07/14/2024 7:49 AM IM-INTERVENTIONAL CARDIOLOGY STAFF [facility] 2024-03-10 15:00:08 Associated Order(s): Intubation Intubation Date/Time: 03/10/2024 2:54 PM Urgency: elective Airway not difficult General Information and Staff Patient location during procedure: OR Performed: resident/HEALTHCARE BUSINESS ANALYST Performed by: Erin Quintero CRNA Authorized by: Bong Huerta MD Indications and [...] atraumatic, dentition and lips unchanged from pre-op. LE ELECTRONICS INSTALLER NACR-NURSE INTERIOR DESIGN FACULTY MEMBER,CERTIFIED REGISTERED NURSE INTERIOR DESIGN FACULTY MEMBER [facility] 2024-03-10 12:27:13 Full Operative Note Patient name: Lilly Zheng Number: [id number] Date of operation: 03/10/2024 Faculty surgeon: Bettye Parson Pre-operative diagnosis: BPH with Hx of worsening LUTS last 4 years and getting worse despite flomax , CT prostate vol : 45 cc . Post-operative diagnosis: BPH with LUTS Operation performed: Transurethral Laser Enucleation of the Prostate (CPT - 91266) Findings: Normal urethra and bladder mucosa. No [...] from 18 to 30 Fr sequentially with Deven urethral sounds. A resectoscope with a visual [...] prostate chips Patient's Condition: stable to PACU Bettye Parson MD LE ELECTRONICS INSTALLER [facility] Notes Date/Time Note Provider Source 2024-10-19 09:53:55 Refill has been sent to pharmacy on file. Mahsa Granados RN [facility] 2024-10-11 09:05:23 Available refill at pharmacy, no additional refills authorized at this time. Outpatient Medication Detail Disp Refills Start End GINNY tirzepatide (MOUNJARO) 5 mg/0.5 mL subcutaneous injection pen 6 mL 1 06/22/2024 -- -- Sig: inject 5 mg under the skin weekly. Sent to pharmacy as: Mounjaro 5 mg/0.5 mL subcutaneous pen injector (tirzepatide) Class: eRX Route: Subcutaneous Order: [id number] Date/Time Signed: 06/22/2024 10:35 Mahsa Granados RN [facility] 2024-08-11 21:37:30 Pt given printed and verbal discharge instructions regarding sprain of right ankle, encouraged hydration, Pt verbalized understanding of instructions, pt awake alert oriented, resp reg unlabored, skin w/d, color appropriate for race, moves all ext well,pt encouraged to follow up with pcp Advised to seek medical attention for new/prolonged/worsening of symptoms No adverse reaction to meds given in ER noted upon discharge Awake, alert oriented, resp reg unlabored, skin w/d, pt leaving amb with steady gait, in no apparent distress, Bharath Saldaña RN [facility] 2024-08-11 21:30:00 Patient refusing walking boot stating it was too big. ERP notified. Mauricio wrap and air splint placed on right ankle. Patient tolerated well. [facility] 2024-08-11 18:41:15 Pt using ED wheelchair. Pt c/o pain in right leg and increased swelling in ankle since his fall around 11am today. Pt denies LOC and hitting his head. Nelia Wiclox RN [facility] 2024-08-04 11:50:08 Patient informed of results and that he does not meet criteria for cardiac rehab. Informed him to contact PCP for possible referral for PT. Kimberlyn Norton RN [facility] 2024-08-04 11:35:40 Left heart cath showed nonobstructive CAD. [facility] 2024-08-04 11:35:05 He does not qualify for cardiac rehab based on criteria. He can get physical therapy from his primary care provider. [facility] 2024-08-04 11:18:44 Called to clarify request. Patient asking for new referral to cardiac rehab as he has met his deductible and will not have to pay OOP, will forward to Dr. To for orders Will wait until appointment for results, scheduled for follow up on 08/11. [facility] 2024-08-02 14:25:25 Patient calling asking to speak with a nurse regarding his results from heart procedure he had done, and also he is needing another referral sent for PT for him to do. Please advise Anaid Salgado [facility] 2024-07-18 09:02:[address] To. Fax confirmation pending. Alexandria Carmichael MA [facility] 2024-07-15 16:25:07 Received fax from [facility] Health requesting medical clearance. Routing to MD for chart review. Enedina Jones MA [facility] 2024-06-21 15:05:21 Patient wanted to confirm medications prescribed yesterday. Informed patient he was to brass pickler OTC ASA 81 mg to take once daily, atorvastatin 40 mg daily, and metoprolol succinate 25 mg daily. Patient confirmed he brass pickler these medications today. LE ELECTRONICS INSTALLER Kimberlyn Norton RN [facility] 2024-06-21 12:32:27 Patient calling asking to speak with Bela regarding clarification of his medications, and if he picked up the right medications or not. Please advise [facility] 2024-06-21 09:14:54 Called pt to schedule procedure. Pt agreed to come in on 07/14/24. Pt is scheduled for labs on 07/07/24. Pt is aware a nurse will call a week before with instructions and a medical lab technologist will call the day before with an arrival time. [facility] Sonu Jacobson [facility] 2024-06-20 19:44:26 Ordered [facility] 2024-06-20 16:02:28 Pt is agreeable to proceed with heart cath and preferr [place] location Will forward to Dr. To for orders to be placed. Prescriptons sent to pt pharmacy. LE ELECTRONICS INSTALLER Bela Weaver RN [facility] 2024-06-20 15:19:01 Images from the original note were not included. Discussed results with pt. Pt states he will talk with and call back to let us know if he wants to proceed or schedule appt with Dr. To. Waiting on pt call back Jade To MD P Cardiology Nurse CT coronary angiogram showed stenosis. Start ASA 81 mg daily, lipitor 40 mg daily and Toprol XL 25 mg daily. Plz make an appt with me to discuss LHC in clinic unless he wants to proceed with LHC without further discussion. [facility] 2024-06-17 16:02:43 Received fax requesting pts documents, Faxed to HIM to process. [facility] Yola Joshi [facility] 2024-06-17 10:45:00 Images from the original note were not included. Venipuncture collection performed by clean technique on the right anticubitus. Total of 1 attempts were made. Slight pressure and a bandage/dressing were applied to the site(s). The patient experienced no complications. The following specimens were processed according to instructions and sent to [facility] laboratories per lab order on 06/17/2024 : LT BLUE SST 1 RED LAV PPT DK GREEN (LiHep) DK GREEN (SodH) MATSON DK BLUE (K2) DK BLUE (S) ACD Blood Culture NIPT/NTD [facility] 2024-06-16 13:46:12 PA Completed Mounjaro 2.5 mg weekly Cover my meds ANGUIANO: [id number] Awaiting determination [facility] Esha Orourke RN [facility] 2024-06-14 13:05:16 Patient here for Cardiac Coronary CT. Diagnosis is chest pain. States no caffeine in 24 hours, no use of Cialis, Viagra, Stendra, or Levitra within 24 hours. Initial VS taken at 1310 B/P 154/86, HR 84, Respirations 18, SpO2 96. A 20 gauge IV was placed. Per outpatient cardiac coronary CT protocol, Metoprolol 100 mg po was given at 1311, HR 84. At 1403 , post 100 mg Metoprolol administration, B/P is 136/79, HR 65. At 1432, patient was taken to CT and placed on monitoring tech showing cardiac rhythm sinus arrhythmia. HR 64. At 1433, B/P 136/79, and Nitroglycerin 0.8 mg SL was given. After CT, patient was monitored, and at discharge VS were: Time 1439 B/P 152/78, HR 70, Resp 18, SpO2 97. IV was D/C'd and a clean, dry, dressing was placed. Pt denies dizziness, chest pain, or shortness of breath and was discharged in stable condition. [facility] 2024-06-09 13:12:45 Refill: Mounjaro 2.5 mg weekly RODO: 03/08/2024 NOV: 06/17/2024 Per last visit note: - Continue Mounjaro 2.5 mg injection weekly, doesn't want to progress, reports 5 mg dose is too strong for him. Refill sent [employer]LECT[employer] INSTALLER Esha Orourke RN [facility] 2024-06-01 10:40:00 Addended by: JADE TO MD on: 06/20/2024 07:44 PM Modules accepted: Orders [facility] 2024-05-26 14:46:24 error LE ELECTRONICS INSTALLER Pablo Worrell [facility] 2024-05-26 08:17:34 Attempted to contact patient for pre-procedure instructions, however, unable to leave message because " ... Mailbox has not been setup yet ...". Plan to send a [employer] message. LE ELECTRONICS INSTALLER Mari Elder RN [facility] 2024-05-25 15:47:56 Images from the original note were not included. Called to inform patient of results and recommendations as detailed below. Patient verbalized understanding. Scheduled follow up with Dr. To on 06/01/24 at 10:40 am. Jade To MD P Cardiology Nurse Nuclear stress--mildly abnormal. Plz make a f/u appt with me to discuss. LE ELECTRON[employer] INSTALLER Kimberlyn Norton RN [facility] 2024-05-25 15:05:56 SW pharmacist, she stated patient is already prescribed Zanax 6 mg tablet per day. Called and informed patient to take medication as prescribed the day of the procedure, pharmacy will not release Valium due to already prescribed Xanax RX. Pt. Verbalized understanding Lopez LVN [facility] 2024-05-25 14:26:42 Lilly Zheng is a 63 year old male Pharmacy calling about the Rx diazePAM (VALIUM) 5 mg tablet States the pt is already taking Xanax. Please advise [facility] 2024-05-24 08:30:00 Summary: stress Lilly Zheng is a 63 year old male received to Nuclear Medicine for Stress Test. Pt is AAOx4 and is in NAD. Pt identified using Name & . Pt endorses being NPO since 05/23/24. Indication for this Stress Test is chest pain. Last caffeine intake @ 05/23/24 NM Tech monitoring is tomas Supervising physician edel obtained consent at 05/24/24 Time out completed 1114 Lexiscan 0.4mg/5mL injected at 1114, followed by 5mL NS flush. Pre Stress Test vitals are: BP 197/94 HR 70 Resp 20 O2 sat 100 Injection vitals are: BP 204/104 HR 70 Resp 20 O2 sat 100 nausea Recovery vitals are: BP 197/100 HR 70 Resp 20 O2 sat 100 [facility] 2024-05-09 09:19:47 Images from the original note were not included. Granados RN [facility] 2024-05-06 15:58:46 Images from the original note were not included. [facility] 2024-04-22 11:39:48 Refill has been sent to pharmacy on file. Recent Visits Date Type Provider Dept 03/08/24 Office Visit Lorenzo Puri, BILLYPCNP [facility] 12/04/23 Office Visit Lorenzo Puri AGPCKARYN [facility] 09/01/23 Office Visit Lorenzo Puri, BILLYPCNP [facility] 07/14/23 Office Visit Lorenzo Puri AGPCKARYN [facility] Showing recent visits within past 540 days with a meds authorizing provider and meeting all other requirements Future Appointments Date Type Provider Dept 06/17/24 Appointment Lorenzo Puri AGPCKARYN [facility] Showing future appointments within next 150 days with a meds authorizing provider and meeting all other requirements Granados RN [facility] 2024-04-05 14:45:00 Images from the original note were not included. Venipuncture collection performed by clean technique on the left anticubitus. Total of 1 attempts were made. Slight pressure and a bandage/dressing were applied to the site(s). The patient experienced no complications. The following specimens were processed according to instructions and sent to [facility] laboratories per lab order on 04/05/2024 : LT BLUE SST 2 RED LAV 1 PPT DK GREEN (LiHep) DK GREEN (SodH) MATSON DK BLUE (K2) DK BLUE (S) ACD Blood Culture NIPT/NTD LE ELECTRONICS INSTALLER [facility] 2024-03-17 13:43:23 Refill has been sent to pharmacy on file. Recent Visits Date Type Provider Dept 03/08/24 Office Visit Lorenzo Puri, BILLYPCNP [facility] Future Appointments Date Type Provider Dept 06/17/24 Appointment Lorenzo Puri AGPCNP [facility] Showing future appointments within next 150 days with a meds authorizing provider and meeting all other requirements Granados RN [facility] 2024-03-10 17:11:53 Patient: Lilly Zheng Procedure Summary Date: 03/10/24 Room / Location: [address] Anesthesia Start: 1440 Anesthesia Stop: 1605 Procedure: LASER ENUCLEATION OF PROSTATE (Bladder) Diagnosis: Benign prostatic hyperplasia with urinary retention (Benign prostatic hyperplasia with urinary retention [N40.1, R33.8]) Surgeons: Bettye Parson MD Responsible Provider: Villa Lindsay MD Anesthesia Type: General ASA Status: 3 Anesthesia Type: General Last vitals BP (!) 171/68 (03/10/241649) Temp Pulse 71 (03/10/241649) Resp 18 (03/10/241649) SpO2 96 % (03/10/241649) There were no known notable events for this encounter. Anesthesia Post Evaluation Patient location during evaluation: PACU Patient participation: complete - patient participated Level of consciousness: awake and alert Pain management: satisfactory to patient Airway patency: patent Cardiovascular status: acceptable and blood pressure returned to baseline Respiratory status: acceptable Hydration status: acceptable AN-ANESTHESIOLOGY ANESTHESIOLOGIST [facility] 2024-03-03 15:27:34 Images from the original note were not included. Your procedure is at [facility] on 03/10/24. The address is [address] [place] [address], [id number]. [facility] nursing staff will call you the workday before your procedure to let you know what time to arrive.On the day of your procedure, please go inside that door and check in at the desk. Please note: You may not travel home alone and that includes in a taxi or by bus. We must speak to your Responsible Adult (who will be picking you up) the morning of your procedure, before the start of your procedure. This person must be an adult over the age of 18 years of age. Do not eat any solid food after midnight the night before surgery. You may have sips of clear liquids such as water, gatorade, and sprite up until two hours before your scheduled procedure. You may take your medications with a sip of water as directed by physician. Anticoagulants will be per physician guidance. Medication Note(s)/Instructions:Instructed to hold Mounjaro dose due on 03/07/24, hold metformin evening before and morning of surgery, hold lisinopril day before and morning of surgery, and hold HCTZ and insulin morning of surgery. Advised to take amlodipine and pantoprazole morning of surgery. Okay to take pain medication if needed. Pending screening, we may test for COVID. If a patient tests positive, their cases are cancelled and/or rescheduled. COVID SCREENING NOTE: Denies COVID symptoms, no testing required. Additional requests, questions, concerns:UC completed 03/02. number and availability provided. Patient verbalized understanding of pre-op instructions and voiced no further questions at this time. LE ELECTRONICS INSTALLER Shanae Fernandez RN [facility] 2024-03-03 14:21:29 Per last OV with provider it was the plan to stop glipizide, therefore we are unable to authorize refill Plan: - STOP Glipizide - Continue to work on diet. Smaller portions with less carbohydrates. - Continue Pioglitazone 30 mg daily. - Continue Metformin ER 500 mg 24 hr tablet; Take 2 tablets in the morning and 2 tablets in the evening - Continue Mounjaro 2.5 mg injection weekly, doesn't want to progress, reports 5 mg dose is too strong for him. - INCREASE Tresiba 28 units daily, If your BG is less than 80, HOLD your insulin. If your BG is between 80-120, please take HALF of your insulin. - insulin degludec (TRESIBA FLEXTOUCH U-100) 100 unit/mL (3 mL) InPn; inject 28 Units under the skin at bedtime. Pleas take half dose if blood glucose 80 - 120 mg/dL, hold if less than 80. Dispense: 27 mL; Refill: 1 - metformin ER 500 mg 24 hr tablet; Take 2 tablets by mouth in the morning and 2 tablets in the evening. Take with meals. Dispense: 180 tablet; Refill: 6 - pioglitazone 30 mg tablet; Take 1 tablet by mouth every morning. Dispense: 90 tablet; Refill: 3 Granados RN [facility] 2024-03-03 11:24:27 Thank you. Closing encounter [facility] 2024-03-03 09:55:25 Images from the original note were not included. Name/ MRN / Age / Gender: Lilly Zheng, [id number] 63 year old male BMI: Estimated body mass index is 32.77 kg/m? as calculated from the following: Height as of 03/02/24: 1.676 m (5' 6"). Weight as of 03/02/24: 92.1 kg (203 lb). Allergies: Patient has no known allergies. Last Vitals: BP Readings from Last 1 Encounters: 03/02/24 (!) 149/79 Pulse Readings from Last 1 Encounters: 03/02/24 80 SpO2 Readings from Last 1 Encounters: 03/02/24 96% Date of Surgery: 05/20/2023 Surgeon: Hector Michaels MD Procedure: LASER ENUCLEATION OF PROSTATE (Bladder) OR Location: [facility] OR LOCATION Anesthesia Preop Eval (physical exam) Copied forward and updated from: 05/20 - laminectomy Anesthesia Preop: Chart Review and Andi-un-Ifyd [facility] questionnaire answers not incorporated [facility] Communication: NPO Status Verified Solid Food/Non-Clear Liquids: > 8 Hours PONV Risk Factors: post-op opiate use anticipated Anesthesia History Anesthesia History Negative (-) Hx of anesthetic complications (-) Hx of PONV (-) Fam hx of anesthetic complications Previous Anesthetics/Airways Cardiovascular Comments: Admission 11/11-11/13/2022 Chest pain, weakness, epigastric tenderness. Chest pain likely atypical. Troponins negative rule out ACS. Patient with acute pancreatitis that was improving and patient tolerated a meal without pain. Patient cleared for discharge and encouraged to follow-up with cardiology and if any more abdominal pain GI. TTE 11/12/2022 Interpretation Summary ? Left Ventricle: Left ventricle size is normal. Normal wall thickness. Normal wall motion. Normal systolic function with a visually estimated EF of 55 - 60%. Indeterminate diastolic function. ? Right Ventricle: Right ventricle size is normal. ? Tricuspid Valve: Insufficient tricuspid regurgitation jet to estimate RVSP . ? IVC/SVC: IVC was not well visualized. ? Pericardium: No pericardial effusion. EKG 11/11/2022 Normal sinus rhythm Cannot exclude Anterior infarct age undetermined Abnormal ECG When compared with ECG of 19-JUL-2020 12:39, No significant change has occurred ECHO 12/10/2017 Interpretation Summary Proximal septal thickening is noted. Left ventricular systolic function is normal. Ejection Fraction = 55-60%. Diastolic dysfunction. The left ventricular wall motion is normal. Estimated RA pressure is 0-5 mmHg. Insufficient Tricuspid regurgitation jet to estimate RVSP METS Comments: Limited by back pain. Uses scooter and cane. Tires easily since having Covid 4 years ago. SOB on exertion. All ADLs independently but slowly d/t pain. Doing PT regularly without cp/sob. Took amlodipine this AM 03/10 (+) Hypertension (+) Dyslipidemia (+) Hx of echocardiogram within past 5 years (+) Recent EKG (-) Valvular problems/murmurs (-) Dysrhythmias Pulmonary Comments: Chronic fatigue from covid (+) Sleep apnea (does not have cpap d/t insurance) (+) Shortness of breath and on exertion (+) Tobacco use (former smoker; 0.25 ppd x 30 years; Smokes Cigars on occasion) Tobacco Quit Date: 1987 (-) COVID-19 within the past 6 weeks (-) Influenza within the past 6 weeks (-) Pneumonia within the last 6 weeks (-) Recent bronchitis or URI Neuro/Musculoskeletal Comments: CC: back pain ER 12/10/2022 Fall, Rib pain on left side. Chest wall contusion, left ER 10/05/2022 Chronic bilateral low back pain with bilateral sciatica. Hx of: neuropathy; lumbar stenosis with neurogenic claudication, lumbar radiculopathy, DDD lumbar (-) CVA(-) Seizures (-) Neuromuscular Disease (+) Chronic pain: (+) Obesity (BMI 35.33) GI/Hepatic (+) GERD and controlled with meds (-) Liver disease Hematology Comments: 05/07/23 WBC x10 3 : 13.07 (H) RBC x10 6 : 4.30 HGB: 8.3 (L) HCT: 29.5 (L) MCV: 68.6 (L) MCH: 19.3 (L) MCHC: 28.1 (L) RDW-SD: 43.2 RDW-CV: 17.6 (H) PLT x10 3 : 468 (H) (-) PE/DVT (-) Not on anti-coagulant therapy Prior Blood Transfusion: Yes (+) No historical type and screen (emailed for Typenex protocol) Type and Screen Ordered: Yes Patient Accepts Blood Transfusion: Yes Renal Comments: 05/07/23 NA: 139 K: 5.4 (H) CL: 106 CO2 TOTAL: 22 (L) AGAP: 11 BUN: 27 (H) GLUCOSE: 159 (H) CREATININE: 1.20 eGFR: 68.8 Hx of: BPH (-) Patient reports no kidney problems (-) Nephrolithiasis Skin Skin ROS Negative per Chart Review (-) Rash Endo/Other (+) Diabetes Mellitus, Type 2, Rx Insulin and on oral meds Hemoglobin A1C: 11/12/22 7.9 Average Blood Glucose Range: 80s-110s (-) Hyperthyroidism (-) Hypothyroidism Other (+) Tobacco use (former smoker; 0.25 ppd x 30 years; Smokes Cigars on occasion) Tobacco Quit Date: 1987 (+) Alcohol use (beer every once in a while) (+) Drug use (marijuana) 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 Hold on DOS. Phentermine: Alert [facility] anesthesiologist SGLT2 Inhibitors: "gliflozins" to be held for 3 days prior to elective surgeries GLP1 Agonosit: stop 7 days prior to surgery MAC Cases: Continue taking MAURICIO inhibitors and ARBs ASA Classification ASA: 3 Current Medications: No current facility-administered medications for this encounter. Current Outpatient Medications Medication Sig Dispense Refill pantoprazole 40 mg EC tablet meclizine 25 mg tablet Take 1 tablet by mouth every 6 (six) hours. 20 tablet 0 ondansetron 4 mg disintegrating tablet Take 1 tablet by mouth every 4 (four) hours as needed for Nausea and Vomiting (N/V). 20 tablet 0 famotidine 20 mg tablet glipiZIDE XL 10 mg 24 hr tablet hydrOXYzine 25 mg tablet metFORMIN 500 mg tablet metoclopramide HCl 10 mg tablet sodium,potassium,mag sulfates 17.5-3.13-1.6 gram insulin degludec (TRESIBA FLEXTOUCH U-100) 100 unit/mL (3 mL) InPn inject 28 Units under the skin at bedtime. Pleas take half dose if blood glucose 80 - 120 mg/dL, hold if less than 80. 27 mL 1 metformin ER 500 mg 24 hr tablet Take 2 tablets by mouth in the morning and 2 tablets in the evening. Take with meals. 180 tablet 6 pioglitazone 30 mg tablet Take 1 tablet by mouth every morning. 90 tablet 3 methocarbamoL 500 mg tablet Take 1 tablet [...] weekly. 4 mL 4 blood sugar diagnostic (QuintesocialTOUCH VERIO TEST STRIPS) strip Use as directed to check blood sugar 3 times daily for Type 2 diabetes mellitus 200 Strip 2 Blood-Glucose Meter (HolganixUCH VERIO FLEX METER) [facility] Use as directed 1 Each 0 lancets (QuintesocialTOUCH DELICA PLUS LANCET) 33 gauge [facility] Use as directed to check blood sugar 3 times a day for diagnosis of Type 2 DM, e11.65 100 Each 2 montelukast 10 mg tablet hydroCHLOROthiazide 25 mg tablet mirtazapine 15 mg tablet Insulin [place], Disposable, (PEN NEEDLE) 31 gauge x 5/16" Ndle Use as directed once a day 100 Each 3 wcpceim-wtsderkgyvxew-squsiaga (EXCEDRIN MIGRAINE) 250-250-65 mg per tablet Take 2 tablets by mouth as needed for Pain. lisinopriL 40 mg tablet Take 1 tablet by mouth in the morning and 1 tablet in the evening. ALPRAZolam 2 mg tablet HYDROcodone-acetaminophen 10-325 mg tablet TAKE 1 TABLET BY MOUTH TWICE DAILY AND 1/2 TABLET IN THE AFTERNOON. amLODIPine 10 mg tablet Take 1 tablet by mouth daily. Appointment needed for further refills. Please contact office. 30 tablet 3 tamsulosin 0.4 mg 24 hr capsule Take 1 capsule by mouth at bedtime. 90 capsule 4 Previous Surgeries: Past Surgical History: Procedure Laterality Date COLONOSCOPY N/A 11/04/2019 Surgeon: Essie Guerra MD; Location: [facility] OR Location ESOPHAGOGASTRODUODENOSCOPY N/A 11/04/2019 Surgeon: Essie Guerra MD; Location: [facility] OR Location LAMINECTOMY LUMBAR (SHX) Bilateral 05/20/2023 Surgeon: Hector Michaels MD; Location: [facility] OR LOCATION LASIK (LASER IN SITU KERATOMILEUSIS) Anesthesia Physical Exam General no apparent distress and alert and oriented x 3 Neuro/Psych Dental implants Abdominal Airway Mallampati score:III TM distance:> 5 cm NECK: short and thick Neck ROM: limited Mouth opening:normal Extremity Pulmonary pulmonary exam normal Other Cardiovascular cardiovascular exam normal Anesthesia Plan ASA Status: 3 Plan discussed during pre-op evaluation: General Anesthetic plan on DOS: General Plan to include: IV induction, ETT and LMA Anesthesia plan discussed with: patient or major account representative Post-Operative Analgesia: routine analgesia & antiemetics Recovery Plan: PACU Additional comments: LE ELECTRONICS INSTALLER AN-ANESTHESIOLOGY ANESTHESIOLOGIST [facility] 2024-03-03 09:47:10 Patient already has [facility] authorization in referral. AUTH is [id number] - gold from 01/13/24-07/14/24 Nothing further needed form PSS at this time. [facility] 2024-03-03 09:18:39 UROLOGY POST-PROCEDURE CALL Procedure: Cysto Physician: Khalida Are you experiencing any nausea/vomiting? no Are you having any difficulty voiding? no Are you experiencing an increase in your temperature? no Are you having any pain? What is your pain level? no 0 Did you receive post-op education? yes Did you understand the instructions given to you? yes Were you given the number to call for questions or concerns regarding your procedure? yes Are you satisfied with the care you received? yes Post procedure instructions reviewed: Cystoscopy Teachback completed by patient: Knowledge of phone number to call: yes Knowledge of post-procedure instructions: yes [facility] Shruthi Li RN [facility] 2024-03-03 07:42:20 [facility] PSS and Nursing team Can you please help patient obtain and update me Thanks Bettye Parson MD [facility] 2024-03-03 07:39:59 Patient has scheduled surgery on 03/10. Patient has [facility] HMO and an Authorized PCP referral is needed and not on file. Please obtain prior to surgery date. [facility] 2024-03-02 14:00:00 Addended by: BETTYE PARSON on: 03/10/2024 12:37 PM Modules accepted: Orders [facility] 2024-03-02 14:00:00 Addended by: BETTYE PARSON on: 03/10/2024 04:59 PM Modules accepted: Orders [facility] 2024-03-02 13:30:00 Images from the original note were not included. Venipuncture collection performed by clean technique on the right anticubitus. Total of 1 attempts were made. Slight pressure and a bandage/dressing were applied to the site(s). The patient experienced no complications. The following specimens were processed according to instructions and sent to [facility] laboratories per lab order on 03/02/2024: LT BLUE SST 1 RED LAV 1 PPT DK GREEN (LiHep) DK GREEN (SodH) MATSON DK BLUE (K2) DK BLUE (S) ACD Blood Culture NIPT/NTD a [facility] 2024-03-02 09:28:12 Contacted patient to follow up with them regarding their procedure at the [facility] pain procedure suite. The patient reported the following information: 1) Are you currently having any nausea or vomiting? no 2) Do you or have you had any drainage at your injection site? no 3) What was your pain scale prior to your procedure? 4 4) What is your pain scale now? 2 5) Have you had any difficulty urinating? no 6) Do you now or since your procedure have you had any fever? no 7) Is there anything concerning that you would like to share with your provider? no 8) Were you satisfied with your care and experience in the [facility] Pain Procedure Suite? yes Kayley Eason RN 03/02/2024 9:28 AM LE ELECTRONICS INSTALLER Kayley Eason RN [facility] 2024-03-01 15:28:47 Elapsed Sedation Time: 11 min. LE ELECTRONICS INSTALLER Lindsey Krishna RN [facility] 2024-03-01 08:50:43 Lilly Zheng is a 63 year old male Pt is calling to speak with a nurse regarding procedure questions, Pt is scheduled for 1:30 pm, Please advise (home) [facility] 2024-02-25 14:04:42 Patient was identified with name and date of during prescreening call. Procedure was verified. Discussed preop instructions with pt. Nothing by mouth after midnight night before procedure to include gum, mints, hard candy, suckers, cough drops, and dipping tobacco. Pt advised clear liquids are allowed up until 2 hours prior to arrival time. Pt was advised to have a responsible adult with them day of procedure, who must stay on location and take pt home. Pt may use medical transportation uber, lyft, taxi etc only if responsible person over the age of 18 is with the pt. Pt may not drive self home. Wear comfortable clothing and leave valuables at home. Address is [address] [place] [address] in [place]. If taking insulin patient is to take one half of normal evening dose day prior to procedure and no insulin the morning of. Pt to follow physician instruction regarding blood thinners and NSAIDS. Pt verbalizes understanding. Arrival time of 1330 given. Kayley Eason RN [facility] 2024-02-24 07:22:39 LM for patient to stop glipizide and to contact me if he has any further questions. Mahsa Granados RN [facility] 2024-02-23 21:41:02 Please let patient know we stopped Glipizide at his RODO. [facility] 2024-02-23 13:46:22 Per provider last Office note Plan: - STOP Glipizide - Continue to work on diet. Smaller portions with less carbohydrates. - Continue Pioglitazone 30 mg daily. - Continue Metformin ER 500 mg 24 hr tablet; Take 2 tablets in the morning and 2 tablets in the evening - Continue Mounjaro 2.5 mg injection weekly, doesn't want to progress, reports 5 mg dose is too strong for him. - INCREASE Tresiba 28 units daily, If your BG is less than 80, HOLD your insulin. If your BG is between 80-120, please take HALF of your insulin. Routed to provider to auth refill. Mahsa Granados RN [facility] 2024-02-10 11:15:00 Images from the original note were not included. Venipuncture collection performed by clean technique on the left anticubitus. Total of 1 attempts were made. Slight pressure and a bandage/dressing were applied to the site(s). The patient experienced no complications. The following specimens were processed according to instructions and sent to [facility] laboratories per lab order on 02/09/24: LT BLUE SST 8 RED LAV 1 PPT DK GREEN (LiHep) DK GREEN (SodH) MATSON DK BLUE (K2) DK BLUE (S) ACD Blood Culture NIPT/NTD Patient has been identified by and name and was provided with cup, antiseptic towelette, and clean catch instructions. 5 urine specimen(s) sent. Unpreserved 4 Urine Culture 1 Aptima tube Other urine [facility] 2024-01-05 15:15:00 Images from the original note were not included. Venipuncture collection performed by clean technique on the left anticubitus. Total of 1 attempts were made. Slight pressure and a bandage/dressing were applied to the site(s). The patient experienced no complications. The following specimens were processed according to instructions and sent to [facility] laboratories per lab order on 01/05/2024: LT BLUE SST RED LAV 1 PPT DK GREEN (LiHep) DK GREEN (SodH) MATSON DK BLUE (K2) DK BLUE (S) ACD Blood Culture NIPT/NTD [facility] 2024-01-03 03:58:56 Pt given printed and verbal discharge instructions regarding vertigo, encouraged hydration, Prescriptions provided Pt verbalized understanding of instructions, pt awake alert oriented, resp reg unlabored, skin w/d, color appropriate for race, moves all ext well,pt encouraged to follow up with pcp and neurology. Advised to seek medical attention for new/prolonged/worsening of symptoms. No adverse reaction to meds given in ER noted upon discharge PIV d'cd, dressing to site, catheter in tact. Awake, alert oriented, resp reg unlabored, skin w/d, pt leaving amb with steady gait, in no apparent distress. Bernadette Oropeza RN [facility] 2024-01-03 00:28:00 Pt returned to room. T Sumaya Guillen RN [facility] 2024-01-03 00:11:38 Critical Care Transport Patient transported to CT scan with Sandip BASS. Portal monitor malfunctioning, unable to place patient on continuous monitoring. Sumaya Guillen RN [facility] 2024-01-03 00:11:[address] with SHELIA Oropeza. T [facility] 2024-01-03 00:06:00 Stroke Symptoms Note Pt placed immediately into room for stroke symptoms, last seen normal: 11 PM on 01/03/2024. Stroke activation complete, Dr. Wilkinson at bedside. EKG done on arrival to room. Patient taken to CT at 0011 with RN at bedside. Portal monitor malfunctioning, unable to place patient on continuous monitoring. PIV placed, labs drawn. Please see neuro assessment for details. Will continue to monitor. Sumaya Guillen RN [facility] 2024-01-02 23:57:45 Patient arrived to ED via WC c/o "all of right side feeling like electricity going through it" that started about an hour ago. Patient took night time medications except Metformin because his night sugar was 96. Bharath Saldaña RN [facility] 2023-11-20 11:45:00 Images from the original note were not included. Venipuncture collection performed by clean technique on the left anticubitus. Total of 1 attempts were made. Slight pressure and a bandage/dressing were applied to the site(s). The patient experienced no complications. The following specimens were processed according to instructions and sent to [facility] laboratories per lab order on 11/20/2023 : LT BLUE SST 2 RED LAV 1 PPT DK GREEN (LiHep) DK GREEN (SodH) MATSON DK BLUE (K2) DK BLUE (S) ACD Blood Culture NIPT/NTD T [facility] 2023-10-28 10:41:21 RODO 09/01/2023 NOV 12/04/2023 insulin degludec (TRESIBA FLEXTOUCH U-100) 100 unit/mL (3 T Angela José MA [facility] 2023-10-26 17:05:16 TRANSITIONAL CARE MANAGEMENT ASSESSMENT 10/26/2023 Lilly Zheng [id number] Lilly Zheng is a 63 year old /White male was admitted on 10/22/23 to [facility] ICU. He was discharged on 10/23/23 with discharge disposition of HR- Routine Discharge. Admitting Physician: Delonte Kim Discharge Diagnosis: Generalized abdominal pain No linked episodes TCM [id number] outreach documentation: Discharge Assessment Chart Assessed: 10/26/23 TCM Outreach Completed: 10/26/23 Do you have a few minutes to speak with me about how you are doing at home?: Yes (patient stated he is doing okay) Discharge Instructions Do you understand your at-home instructions?: Yes Medications Have you filled your prescriptions and do you have them in your home? : Yes Do you know how to take your medications?: Yes Supplies Did you receive applicable home medical supplies/equipment?: N/A Follow Up Appointment Has a follow up appointment been scheduled?: Yes (tomorrow) Do you have any questions about your follow up appointments?: No Are you able to get to your appointment? Who will be taking you?: Yes (self) Home Health Assistance Has the home health nurse contacted you since you've been home?: N/A Survey - Recognition Do you have any other questions or concerns at this time?: No Future Appointments: Future Appointments Provider Department Dept Phone 10/28/2023 4:15 PM Hector Michaels MD [facility], PCP [place] [phone] 12/04/2023 11:00 AM Lorenzo Puri AGPCNP [facility] Endocrinology, [facility] [phone] 01/19/2024 10:00 AM Lorenzo Puri AGPCNP [facility], [facility] [phone] Lara Palmer RN [facility] 2023-10-23 12:07:57 Problem: Discharge Planning Goal: Adequate for discharge 10/23/2023 1207 by Kailee Florentino RN Outcome: Resolved 10/23/2023 1207 by Kailee Florentino RN Outcome: Adequate for discharge 10/23/2023 1038 by Kailee Florentino RN Outcome: Progressing as expected Goal: Effective communication 10/23/2023 1207 by Kailee Florentino RN Outcome: Resolved 10/23/2023 1207 by Kailee Florentino RN Outcome: Adequate for discharge 10/23/2023 1038 by Kailee Florentino RN Outcome: Progressing as expected Problem: Falls, Risk of Goal: Absence of falls 10/23/2023 1207 by Kailee Florentino RN Outcome: Resolved 10/23/2023 1207 by Kailee Florentino RN Outcome: Adequate for discharge 10/23/2023 1038 by Kaliee Florentino RN Outcome: Progressing as expected Problem: Fluid Volume - Imbalanced Goal: Absence of signs and symptoms of imbalanced fluid volume 10/23/2023 1207 by Kailee Florentino RN Outcome: Resolved 10/23/2023 1207 by Kailee Florentino RN Outcome: Adequate for discharge 10/23/2023 1038 by Kailee Florentino RN Outcome: Progressing as expected Problem: Glucose Control - Initiated in Adult CC Goal: Glucose level within specified parameters 10/23/2023 1207 by Kailee Florentino RN Outcome: Resolved 10/23/2023 1207 by Kailee Florentino RN Outcome: Adequate for discharge 10/23/2023 1038 by Kailee Florentino RN Outcome: Progressing as expected Problem: Infection, Risk of or Actual Goal: Absence of infection 10/23/2023 1207 by Kailee Florentino RN Outcome: Resolved 10/23/2023 1207 by Kailee Florentino RN Outcome: Adequate for discharge 10/23/2023 1038 by Kailee Florentino RN Outcome: Progressing as expected Problem: Pain Goal: Control of pain at or below patient's documented comfort goal 10/23/2023 1207 by Kailee Florentino RN Outcome: Resolved 10/23/2023 1207 by Kailee Florentino RN Outcome: Adequate for discharge 10/23/2023 1038 by Kailee Florentino RN Outcome: Progressing as expected Goal: Reduction in pain sensation 10/23/2023 1207 by Kailee Florentino RN Outcome: Resolved 10/23/2023 1207 by Kailee Florentino RN Outcome: Adequate for discharge 10/23/2023 1038 by Kailee Florentino RN Outcome: Progressing as expected UITO Florentino RN [facility] 2023-10-23 12:07:46 Problem: Discharge Planning Goal: Adequate for discharge 10/23/2023 1207 by Kailee Florentino RN Outcome: Adequate for discharge 10/23/2023 1038 by Kailee Florentino RN Outcome: Progressing as expected Goal: Effective communication 10/23/2023 1207 by Kailee Florentino RN Outcome: Adequate for discharge 10/23/2023 1038 by Kailee Florentino RN Outcome: Progressing as expected Problem: Falls, Risk of Goal: Absence of falls 10/23/2023 1207 by Kailee Florentino RN Outcome: Adequate for discharge 10/23/2023 1038 by Kailee Florentino RN Outcome: Progressing as expected Problem: Fluid Volume - Imbalanced Goal: Absence of signs and symptoms of imbalanced fluid volume 10/23/2023 1207 by Kailee Florentino RN Outcome: Adequate for discharge 10/23/2023 1038 by Kailee Florentino RN Outcome: Progressing as expected Problem: Glucose Control - Initiated in Adult CC Goal: Glucose level within specified parameters 10/23/2023 1207 by Kailee Florentino RN Outcome: Adequate for discharge 10/23/2023 1038 by Kailee Florentino RN Outcome: Progressing as expected Problem: Infection, Risk of or Actual Goal: Absence of infection 10/23/2023 1207 by Kailee Florentino RN Outcome: Adequate for discharge 10/23/2023 1038 by Kailee Florentino RN Outcome: Progressing as expected Problem: Pain Goal: Control of pain at or below patient's documented comfort goal 10/23/2023 1207 by Kailee Florentino RN Outcome: Adequate for discharge 10/23/2023 1038 by Kailee Florentino RN Outcome: Progressing as expected Goal: Reduction in pain sensation 10/23/2023 1207 by Kailee Florentino RN Outcome: Adequate for discharge 10/23/2023 1038 by Kailee Florentino RN Outcome: Progressing as expected Problem: Discharge Planning Goal: Adequate for discharge 10/23/2023 1207 by Kailee Florentino RN Outcome: Adequate for discharge 10/23/2023 1038 by Kailee Florentino RN Outcome: Progressing as expected Goal: Effective communication 10/23/2023 1207 by Kailee Florentino RN Outcome: Adequate for discharge 10/23/2023 1038 by Kailee Florentino RN Outcome: Progressing as expected Problem: Falls, Risk of Goal: Absence of falls 10/23/2023 1207 by Kailee Florentino RN Outcome: Adequate for discharge 10/23/2023 1038 by Kailee Florentino RN Outcome: Progressing as expected Problem: Fluid Volume - Imbalanced Goal: Absence of signs and symptoms of imbalanced fluid volume 10/23/2023 1207 by Kailee Florentino RN Outcome: Adequate for discharge 10/23/2023 1038 by Kailee Florentino RN Outcome: Progressing as expected Problem: Glucose Control - Initiated in Adult CC Goal: Glucose level within specified parameters 10/23/2023 1207 by Kailee Florentino RN Outcome: Adequate for discharge 10/23/2023 1038 by Kailee Florentino RN Outcome: Progressing as expected Problem: Infection, Risk of or Actual Goal: Absence of infection 10/23/2023 1207 by Kailee Florentino RN Outcome: Adequate for discharge 10/23/2023 1038 by Kailee Florentino RN Outcome: Progressing as expected Problem: Pain Goal: Control of pain at or below patient's documented comfort goal 10/23/2023 1207 by Kailee Florentino RN Outcome: Adequate for discharge 10/23/2023 1038 by Kailee Florentino RN Outcome: Progressing as expected Goal: Reduction in pain sensation 10/23/2023 1207 by Kailee Florentino RN Outcome: Adequate for discharge 10/23/2023 1038 by Kailee Florentino RN Outcome: Progressing as expected T [facility] 2023-10-23 10:38:14 Problem: Discharge Planning Goal: Adequate for discharge Outcome: Progressing as expected Goal: Effective communication Outcome: Progressing as expected Problem: Falls, Risk of Goal: Absence of falls Outcome: Progressing as expected Problem: Fluid Volume - Imbalanced Goal: Absence of signs and symptoms of imbalanced fluid volume Outcome: Progressing as expected Problem: Glucose Control - Initiated in Adult CC Goal: Glucose level within specified parameters Outcome: Progressing as expected Problem: Infection, Risk of or Actual Goal: Absence of infection Outcome: Progressing as expected Problem: Pain Goal: Control of pain at or below patient's documented comfort goal Outcome: Progressing as expected Goal: Reduction in pain sensation Outcome: Progressing as expected [facility] 2023-10-23 05:24:33 Problem: Discharge Planning Goal: Adequate for discharge Outcome: Progressing as expected Goal: Effective communication Outcome: Progressing as expected Problem: Falls, Risk of Goal: Absence of falls Outcome: Progressing as expected Problem: Fluid Volume - Imbalanced Goal: Absence of signs and symptoms of imbalanced fluid volume Outcome: Progressing as expected Problem: Glucose Control - Initiated in Adult CC Goal: Glucose level within specified parameters Outcome: Progressing as expected Problem: Infection, Risk of or Actual Goal: Absence of infection Outcome: Progressing as expected Problem: Pain Goal: Control of pain at or below patient's documented comfort goal Outcome: Progressing as expected Goal: Reduction in pain sensation Outcome: Progressing as expected [facility] 2023-10-22 20:52:00 Patient admitted to 2108 for diagnosis of generalized abd pain, anemia, dyspnea on exertion, sciatica of right side. Patient agrees to admission, discussed plan of care with patient and family. Patient is awake, A&Ox4, RR even and unlabored on RA. Color appropriate for race. PIV intact x1. No adverse reaction to medications administered while in ED. Belongings with patient to unit. [facility] Jody Adams RN [facility] 2023-10-22 20:51:00 Nurse Report Report given to SHELIA Rodriguez. Chief complaint, assessment findings, infusion verify and orders reviewed. T [facility] 2023-10-22 17:05:[address] with Turn Down Worker Katya Sanon RN [facility] 2023-10-22 16:14:44 Patient reports being short of breath on exertion since waking up this morning, and he said the last time he felt like this they found him to have internal bleeding from peptic ulcers and he had to have blood transfusion about 5 years ago. He also reports sciatica flare up. Tha Alarcon RN [facility] 2023-10-22 16:10:00 AdmissionCare Guideline: Anemia (Iron Deficiency or Unspecified) - OBS, Observation Based on the indications selected for the patient, the bed status of Observation was determined to be MET The following indications were selected as present at the time of evaluation of the patient: - Observation Care Admission Criteria - Observation care is indicated for 1 or more of the following: - Dyspnea at rest or with minimal exertion AdmissionCare documentation entered by: Crystal Marks [facility], 28th edition, Copyright ? 2023 [facility] [employer] All Rights Reserved. [id number]:00 T [facility] 2023-10-05 02:53:00 Pt given printed and verbal discharge instructions regarding lumbar radiculopathy, encouraged heat/massage/tens/topical lidocaine, Prescription sent to pt's pharmacy Discussed ibuprofen and to take with food to avoid GI distress, alternate with Tylenol to help with pain and/or fever Discussed robaxin side affects and to avoid driving/operating machinery/or engaging in activities requiring alertness while taking. Pt verbalized understanding of instructions,pt encouraged to follow up with pcp and or ortho/pain management Advised to seek medical attention for new/prolonged/worsening of symptoms, No adverse reaction to meds given in ER noted upon discharge Awake, alert oriented, resp reg unlabored, skin w/d, pt leaving in no apparent distress, [facility] 2023-10-05 00:59:18 Instructed pt and family that we need an urine sample. Jacinta Carmona RN [facility] 2023-10-04 23:00:00 CC: Pt reports right hip pain started spontaneously this afternoon, no injury. Pt reports pain is going down his lateral leg. 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 Pain said to be severe. No trauma or injury. No fever or chills. Pain radiates all the way to right calf. Pt also has lefty hip pain that has been presents for a while, but not as severe as the right hip. History provided by: Patient, medical records and spouse head concierge used: No Hip Pain Location: Hip Time since incident: 1 day Injury: no Hip location: R hip Pain details: Quality: Shooting Radiates to: R leg Severity: Severe Onset quality: Gradual Duration: 1 day Timing: Sporadic Chronicity: New Dislocation: no Foreign body present: No foreign bodies Prior injury to area: No Relieved by: Nothing Worsened by: Bearing weight, extension, exercise, flexion and abduction Ineffective treatments: Acetaminophen, rest and NSAIDs Associated symptoms: back pain, swelling and tingling Associated symptoms: no fatigue, no fever, no itching, no muscle weakness, no neck pain, no numbness and no stiffness Risk factors: obesity Risk factors: no concern for non-accidental trauma, no frequent fractures, no known bone disorder and no recent illness Past Medical History/Immunizations: Past Medical History: Diagnosis Date Diabetes HTN (hypertension) Tetanus received in last 5 years: Yes Allergies: No Known Allergies Past Social History: Tobacco Use Former; Cigarettes: Quit 11/26/1987; Types: Pipe Passive Exposure: Current Smokeless Tobacco: Current user of smokeless tobacco. Comments: Smokes Cigars on occasion Alcohol Use No. Drug Use No. Past Surgical History: Past Surgical History: Procedure Laterality Date COLONOSCOPY N/A 11/04/2019 Surgeon: Essie Guerra MD; Location: [facility] OR Location ESOPHAGOGASTRODUODENOSCOPY N/A 11/04/2019 Surgeon: Essie Guerra MD; Location: [facility] OR Location LAMINECTOMY LUMBAR (SHX) Bilateral 05/20/2023 Surgeon: Hector Michaels MD; Location: [facility] OR LOCATION LASIK (LASER IN SITU KERATOMILEUSIS) Review of Systems: Review of Systems Constitutional: Negative. Negative for fatigue and fever. HENT: Negative. Eyes: Negative. Respiratory: Negative. Breasts: Negative. Cardiovascular: Negative. Gastrointestinal: Negative. Genitourinary: Negative. Musculoskeletal: Positive for arthralgias, back pain, gait problem and myalgias. Negative for joint swelling, neck pain and stiffness. Skin: Negative. Negative for itching. Psychiatric/Behavioral: Negative. All other systems reviewed and are negative. Endocrine: Endocrine negative Physical Exam: ED Triage Vitals Weight 10/04/232300 92.5 kg (204 lb) Actual or estimated 10/04/232300 Estimated by patient/family report Height 10/04/232300 1.676 m (5' 6") BP 10/04/232300 132/59 Pulse 10/04/232300 82 Resp 10/04/232300 18 Temp 10/04/232300 36.8 ?C (98.2 ?F) Temp source 10/05/23 0134 Oral SpO2 10/04/232300 95 % Measured on 10/04/232300 Room air Physical Exam Vitals and nursing note reviewed. Constitutional: General: He is not in acute distress. Appearance: Normal appearance. He is well-developed. He is obese. He is not ill-appearing, toxic-appearing or diaphoretic. HENT: Head: Normocephalic and atraumatic. Right Ear: Tympanic membrane, ear canal and external ear normal. Left Ear: Tympanic membrane, ear canal and external ear normal. Nose: Nose normal. No congestion or rhinorrhea. Mouth/Throat: Mouth: Mucous membranes are moist. Pharynx: Oropharynx is clear. Posterior oropharyngeal erythema present. No oropharyngeal exudate. Eyes: General: No scleral icterus. Right eye: No discharge. Left eye: No discharge. Extraocular Movements: Extraocular movements intact. Conjunctiva/sclera: Conjunctivae normal. Pupils: Pupils are equal, round, and reactive to light. Cardiovascular: Rate and Rhythm: Normal rate and regular rhythm. Pulses: Normal pulses. Heart sounds: Normal heart sounds. No murmur heard. Pulmonary: Effort: Pulmonary effort is normal. No respiratory distress. Breath sounds: Normal breath sounds. No stridor. No wheezing, rhonchi or rales. Chest: Chest wall: No tenderness. Abdominal: General: Bowel sounds are normal. There is no distension. Palpations: Abdomen is soft. There is no mass. Tenderness: There is no abdominal tenderness. There is no right CVA tenderness, left CVA tenderness, guarding or rebound. Hernia: No hernia is present. Musculoskeletal: General: No swelling, tenderness, deformity or signs of injury. Normal range of motion. Cervical back: Normal range of motion and neck supple. No rigidity or tenderness. Lymphadenopathy: Cervical: No cervical adenopathy. Skin: General: Skin is warm and dry. Capillary Refill: Capillary refill takes less than 2 seconds. Coloration: Skin is not jaundiced or pale. Findings: No bruising, erythema, lesion or rash. Neurological: General: No focal deficit present. Mental Status: He is alert and oriented to person, place, and time. Cranial Nerves: No cranial nerve deficit. Sensory: No sensory deficit. Motor: No weakness. Coordination: Coordination normal. Gait: Gait normal. Deep Tendon Reflexes: Reflexes normal. Psychiatric: Behavior: Behavior normal. Thought Content: Thought content normal. Judgment: Judgment normal. Radiology: CT ABDOMEN PELVIS WO CONTRAST Final Result ORDERING PHYSICIAN: SIENNA PUENTE ABDOMEN AND PELVIS CT WITHOUT INTRAVENOUS [...] pelvis. No acute osseous abnormality is identified. IMPRESSION 1. No CT evidence for acute abnormality within the abdomen and pelvis is visualized. Specifically, no evidence for acute inflammatory process, ureteral calculus or hydronephrosis is present. RL: [id number] HIPS 2 VW RIGHT Final Result Ordering physician: SIENNA PUENTE INDICATION: Right hip pain COMPARISON: Bilateral hips dated 11/12/2022 FINDINGS: 2 views of the right hip. No acute fracture or dislocation is appreciated. There is mild osteoarthritis, with loss of joint space. IMPRESSION Mild osteoarthritis of the right hip without acute fracture or dislocation appreciated. RL: [id number] AFC: [id number] Lab Results: Lab Results URINALYSIS - Abnormal Result Value Ref Range APPEARANCE Hazy (*) Clear COLOR Yellow Yellow PH 5.0 4.8 - 8.0 SP GRAVITY 1.018 1.003 - 1.030 GLU U QUAL Normal Normal BLOOD Negative Negative KETONES 5 mg/dL (*) Negative PROTEIN 30 mg/dL (*) Negative UROBILIN 2.0 mg/dL (*) Normal BILIRUBIN Negative Negative NITRITE Negative Negative LEUK GABBY Negative Negative RBC/HPF 0 0 - 3 HPF WBC/HPF 0 0 - 5 HPF BACTERIA Negative Negative MUCOUS Slight (*) Negative LPF SQ EPITH 1 HPF Orders and Treatments: Orders Placed This Encounter Procedures XR HIPS [address] ABDOMEN PELVIS WO CONTRAST Urinalysis Orders Placed This Encounter Medications FENTanyl PF (SUBLIMAZE (PF)) injection 100 mcg HYDROcodone-acetaminophen (NORCO) 10-325 mg tablet 1 tablet methocarbamoL (ROBAXIN) tablet 500 mg methocarbamoL 500 mg tablet methocarbamoL 500 mg tablet First Provider Eval: ED Events Date/Time Event User Comments 10/04/232316 Medical Screening Begins SIENNA PUENTE MD -- 10/04/232316 First Provider Evaluation SIENNA PUENTE MD -- ED COURSE Diagnosis/Impression as of 10/05/23 0254 Right hip pain Lumbar radiculopathy, acute Sciatica of right side Osteoarthritis of right hip, unspecified osteoarthritis type Procedures: Procedures MDM: Medical Decision Making Lilly Zheng is a 62 year old male who presents to the ED with right hippain with radiaition to RLE/Calf Problems Addressed: Lumbar radiculopathy, acute: acute illness or injury Right hip pain: acute illness or injury Sciatica of right side: acute illness or injury Amount and/or Complexity of Data Reviewed External Data Reviewed: notes. Labs: ordered. Decision-making details documented in ED Course. Radiology: ordered and independent interpretation performed. Decision-making details documented in ED Course. Risk OTC drugs. Prescription drug management. Parenteral controlled substances. Flowsheet Documentation: Scoring Tools: No data recorded Disposition/Condition: ED Disposition ED Disposition Disch - Home Condition Stable Comment -- Discharge Medications: Patient's Medications START taking these medications METHOCARBAMOL 500 MG TABLET Take 1 tablet by mouth every 6 (six) hours as needed for Pain (scale 7-10). METHOCARBAMOL 500 MG TABLET Take 1 tablet by mouth every 6 (six) hours as needed for Pain (scale 7-10) (MUSCLE SPASM). CONTINUE taking these medications which have NOT CHANGED ALPRAZOLAM 2 MG TABLET AMLODIPINE 10 MG TABLET Take 1 tablet by mouth daily. Appointment needed for further refills. Please contact office. XCPQNGH-TYLWDAULOEIRQ-PCRKRXCH (EXCEDRIN MIGRAINE) 250-250-65 MG PER TABLET Take 2 tablets by mouth as needed for Pain. ATORVASTATIN 40 MG TABLET Take 1 tablet by mouth at bedtime. BLOOD SUGAR DIAGNOSTIC (HolganixUCH VERIO TEST STRIPS) STRIP Use as directed to check blood sugar 3 times daily for Type 2 diabetes mellitus BLOOD-GLUCOSE METER (HolganixUCH VERIO FLEX METER) MISC Use as directed BLOOD-GLUCOSE METER,CONTINUOUS (FREESTYLE PEPPER 3 READER) MISC Use as directed BLOOD-GLUCOSE SENSOR (FREESTYLE PEPPER 3 SENSOR) JEAN CARLOS Use as directed every 2 weeks FAMOTIDINE 40 MG TABLET HYDROCHLOROTHIAZIDE 25 MG TABLET HYDROCODONE-ACETAMINOPHEN 10-325 MG TABLET TAKE 1 TABLET BY MOUTH TWICE DAILY AND 1/2 TABLET IN THE AFTERNOON. HYDROXYZINE 50 MG TABLET INSULIN DEGLUDEC (TRESIBA FLEXTOUCH U-100) 100 UNIT/ML (3 ML) INPN inject 20-24 Units under the skin every morning. If your BG is less than 80, HOLD your insulin. If your BG is between 80-120, please take HALF of your insulin. INSULIN NEEDLES, DISPOSABLE, (PEN NEEDLE) 31 GAUGE X 5/16" NDLE Use as directed once a day LANCETS ([employer]world[employer] DELICA PLUS LANCET) 33 GAUGE MISC Use as directed to check blood sugar 3 times a day for diagnosis of Type 2 DM, e11.65 LISINOPRIL 40 MG TABLET Take 1 tablet by mouth in the morning and 1 tablet in the evening. METFORMIN ER 500 MG 24 HR TABLET Take 2 tablets in the morning and 2 tablets in the evening. Take with meals. MIRTAZAPINE 15 MG TABLET MONTELUKAST 10 MG TABLET PANTOPRAZOLE 40 MG EC TABLET PIOGLITAZONE 30 MG TABLET TAKE ONE TABLET BY MOUTH EVERY MORNING SYRINGE-NEEDLE,SAFETY,DISP UNT 1.5 ML 22 GAUGE X 1 1/2" SYRG Use as directed with testosterone injection once [place] TAMSULOSIN 0.4 MG 24 HR CAPSULE Take 1 capsule by mouth at bedtime. TIRZEPATIDE (MOUNJARO) 2.5 MG/0.5 ML SUBCUTANEOUS INJECTION inject 2.5 mg under the skin weekly. START taking Modified Medications as Prescribed No medications on file STOP taking these medications No medications on file Follow-up: Contact information for follow-up Samson Perdomo Specialty: FM-FAMILY MEDICINE Relationship: PCP - General [address] [facility] [id number] Dallni Luis MD Specialty: ORT-ORTHOPAEDIC SURGERY [address] [facility] [id number] Boaz Ortega MD Specialty: ORT-ORTHOPAEDIC SURGERY [facility] [address] [facility] [address] [place] [id number] [facility] Specialty: Emergency Medicine [address] [facility] [address] Instructions: As needed Electronically signed by: Sienna Puente MD 10/05/23253 T [facility] 2023-09-30 14:15:00 Images from the original note were not included. Venipuncture collection performed by clean technique on the left anticubitus. Total of 1 attempts were made. Slight pressure and a bandage/dressing were applied to the site(s). The patient experienced no complications. The following specimens were processed according to instructions and sent to [facility] laboratories per lab order on 09/30/2023 : LT BLUE SST 2 RED LAV 1 PPT DK GREEN (LiHep) DK GREEN (SodH) MATSON DK BLUE (K2) DK BLUE (S) ACD Blood Culture NIPT/NTD [facility] 2023-09-04 13:45:32 RODO note faxed. Cristiane Concepcion LVN [facility] 2023-09-04 09:52:39 Lilly Zheng is a 62 year old male A major account representative from [place] called regarding getting the most recent medical and chart notes faxed over to group regarding insulin regimen. Please advise. [facility] Ph. [phone] Fax. [phone] Bakari Zavala [facility] 2023-09-01 15:53:06 RX where sent 09/01/2023 Duplicate refill request Angela José MA [facility] 2023-08-14 11:09:54 Sent as per request [facility] 2023-08-13 15:29:16 Lilly Zheng is a 62 year old male Pt needing refill on tirzepatide (MOUNJARO) 2.5 mg/0.5 mL subcutaneous injection please send to [facility] in [facility] [id number] [place] [address] Suresh De La Torre [facility] 2023-08-04 13:25:59 Spoke with patient and went over lab results. Patient asked why Mounjaro was sent to [facility] instead of [facility] in [place]. Told patient pharmacy must have transferred it as a courtesy since Mounjaro is out of stock everywhere but [facility] had some. No further questions or concerns and phone call was ended. Closing encounter Romina Hong LVN [facility] 2023-08-03 13:41:12 Pt would like his results to be explained. Pt is requesting to have medication send to [facility] in [place]. Avila Aguirre [facility] 2023-07-27 08:56:01 I will go ahead and renew it but it looks like Dr. Mayes gave him a refill on 06/29/23. -Lorenzo [facility] 2023-07-27 08:43:57 RODO 07/14/23 NOV 01/19/24 Pioglitazone not addressed in RODO. Romina Hong LVN [facility] 2023-07-17 10:45:00 Images from the original note were not included. Venipuncture collection performed by clean technique on the left forearm(s). Total of 1 attempts were made. Slight pressure and a bandage/dressing were applied to the site(s). The patient experienced no complications. The following specimens were processed according to instructions and sent to [facility] laboratories per lab order on 07/17/2023 : LT BLUE SST 1 RED LAV PPT DK GREEN (LiHep) DK GREEN (SodH) MATSON DK BLUE (K2) DK BLUE (S) ACD Blood Culture NIPT/NTD Patient has been identified by and name and was provided with cup, antiseptic towelette, and clean catch instructions. 1 urine specimen(s) sent. 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 Patient has now scheduled follow up. Was waiting to schedule previously due to having back surgery and needed clearance to travel in vehicle. Refilling medication this time only. Patient must be seen on 07/12 for additional refills on diabetes medications Hong LVN [facility] 2023-06-17 12:45:51 Dr. Mayes, pt requesting a refill of Trulicity. He was advised on 05/14/23 by P[facility] to schedule appt and did not. Pt did schedule a follow up appt today. RODO 09/30/22 NOV 07/13/23 Requesting refill to be sent to [facility] in [place]. Order pended for you to sign if approved. [employer]ST[employer] Cristiane Concepcion LVN [facility] 2023-06-17 12:38:08 Pt is out of trulicity and is asking if he can get a refill until appt for next month in june or change back to mounjaro [employer] [facility] 2023-05-26 16:44:49 Contacted patient to advise per Dr. Michaels, patient will need to follow up with his PCP within 1 week of recent discharge. Patient states he has an appointment for this 05/29/23. Notified Dr. Michaels. Cisneros RN [facility] 2023-05-25 15:52:55 TRANSITIONAL CARE MANAGEMENT ASSESSMENT 05/25/2023 Lilly Zheng [id number] Lilly Zehng is a 62 year old /White male was admitted on 05/20/[address] He was discharged on 05/22/23 with discharge disposition of HR- Routine Discharge. Admitting Physician: Hector Michaels Discharge Diagnosis: Lumbar stenosis L3-4 with herniated disc Linked Episodes Type: Episode: Status: Noted: Resolved: Last update: Updated by: TRANSITION OF CARE TCM Active 05/22/2023 05/25/2023 3:48 PM Lara Palmer RN Comments:05/22/2023 TCM Dmn-mctt-ca-face outreach documentation: Discharge Assessment Chart Assessed: 05/25/23 TCM Outreach Completed: 05/25/23 Do you have a few minutes to speak with me about how you are doing at home?: Yes (Patient stated he is doing good.) Discharge Instructions Do you understand your at-home instructions?: Yes Medications Have you filled your prescriptions and do you have them in your home? : Yes Do you know how to take your medications?: Yes Supplies Did you receive applicable home medical supplies/equipment?: N/A Follow Up Appointment Has a follow up appointment been scheduled?: Yes Do you have any questions about your follow up appointments?: No Are you able to get to your appointment? Who will be taking you?: Yes (self) Home Health Assistance Has the home health nurse contacted you since you've been home?: N/A Survey - Recognition Is there anything you would like to share about your recent hospitalization, or anyone you would like to recognize?: No Do you have any suggestions for improvement?: No Do you have any other questions or concerns at this time?: No Future Appointments: Future Appointments Provider Department Dept Phone 06/01/2023 1:30 PM Hector [facility]els [facility] [phone] Palmer RN [facility] 2023-05-22 12:48:02 Problem: Falls, Risk of Goal: Absence of falls 05/22/2023 1247 by Brittany Aldridge RN Outcome: Adequate for discharge 05/22/2023 1220 by Brittany Aldridge RN Outcome: Progressing as expected Problem: Discharge Planning Goal: Adequate for discharge 05/22/2023 1247 by Brittany Aldridge RN Outcome: Adequate for discharge 05/22/2023 1220 by Brittany Aldridge RN Outcome: Progressing as expected Goal: Effective communication 05/22/2023 1247 by Brittany Aldridge RN Outcome: Adequate for discharge 05/22/2023 1220 by Brittany Aldridge RN Outcome: Progressing as expected Problem: Pain Goal: Control of pain at or below patient's documented comfort goal 05/22/2023 1247 by Brittany Aldridge RN Outcome: Adequate for discharge 05/22/2023 1220 by Brittany Aldridge RN Outcome: Progressing as expected Goal: Reduction in pain sensation 05/22/2023 1247 by Brittany Aldridge RN Outcome: Adequate for discharge 05/22/2023 1220 by Brittany Aldridge RN Outcome: Progressing as expected [employer] Brittany Aldridge RN [facility] 2023-05-22 12:20:15 Problem: Falls, Risk of Goal: Absence of falls Outcome: Progressing as expected Problem: Discharge Planning Goal: Adequate for discharge Outcome: Progressing as expected Goal: Effective communication Outcome: Progressing as expected Problem: Pain Goal: Control of pain at or below patient's documented comfort goal Outcome: Progressing as expected Goal: Reduction in pain sensation Outcome: Progressing as expected [employer] [facility] 2023-05-22 06:48:04 Problem: Falls, Risk of Goal: Absence of falls Outcome: Progressing as expected Problem: Discharge Planning Goal: Adequate for discharge Outcome: Progressing as expected Goal: Effective communication Outcome: Progressing as expected Problem: Pain Goal: Control of pain at or below patient's documented comfort goal Outcome: Progressing as expected Goal: Reduction in pain sensation Outcome: Progressing as expected [employer]ST[employer]ER Mary Ann Overton RN [facility] 2023-05-21 09:50:01 Problem: Falls, Risk of Goal: Absence of falls Outcome: Progressing as expected Problem: Discharge Planning Goal: Adequate for discharge Outcome: Progressing as expected Goal: Effective communication Outcome: Progressing as expected Marcelo RN [facility] 2023-05-20 21:59:10 Problem: Falls, Risk of Goal: Absence of falls Outcome: Progressing as expected Problem: Discharge Planning Goal: Adequate for discharge Outcome: Progressing as expected Goal: Effective communication Outcome: Progressing as expected Cobos RN [facility] 2023-05-20 17:14:48 Chief complaint, assessment findings and orders reviewed. Plan of care discussed at bedside with pt. Pt/family members verbalized understanding and able to Teach Back. Patient awake alert and oriented x4. No physical distress noted. Patient denies and n/v. Respirations even and non-labored. Family at bedside with pt. All questions answered. Walter RN [facility] 2023-05-20 10:03:04 Orthopedic Spine Surgery Operative Note Attending Provider: Hector Michaels MD Patient: Lilly Zheng : 1960 05/20/2023 PRE-OP DIAGNOSIS: Lumbar spinal stenosis with claudication L3-4 Herniated disc L3-4 Lumbar radiculopathy POST-OP DIAGNOSIS: Same PROCEDURE(S): Lumbar laminectomy with partial facetectomy and foraminotomy with discectomy and nerve root decompression. L3-4 CPT 24107 FACULTY SURGEON(S): Davy MICHAELS MD RESIDENT SURGEON: Min Velarde MD PGY 4 ANESTHESIA: General ESTIMATED BLOOD LOSS: * No blood loss amount entered * NEUROMONITORING: None IMPLANTS: None SPECIMENS: None. COMPLICATIONS: None. DRAINS: medium hemovac FINDINGS: Severe central stenosis with left greater than right lateral recess stenosis at L3-4 due to hypertrophy of facet joint as well as ligamentum flavum. There is also the presence of a moderate to large sized superiorly migrated extruded disc fragment impinging directly into the lateral aspect of the thecal sac and out into the foramen DISPOSITION: The patient tolerated the procedure well and was transferred to the PACU in satisfactory condition. INDICATION: Lilly Zheng is a 62 year old male complaining of chronic back pain as well as lower extremity radicular pain with left-sided hip flexor and knee extensor weakness grade 4 and the imaging studies demonstrated findings concordant with severe central stenosis at L3-L4 with the presence of a superiorly migrated disc herniation on the left side at L3-4 directly impinging of the L4 and L3 nerve roots.. Treatment options were discussed with the patient extensively including nonsurgical modalities versus surgery. Following a detailed discussion of pros and cons of each treatment option particularly potential benefits, risks and complications of surgery, the patient was still willing to undergo the current surgical procedure. Of note, the patient's physical status according to ASA ([place] [employer] Anesthesiologists) is class 3. PROCEDURE TECHNIQUE IN DETAIL: Patient was seen in the preoperative holding area and the surgical site was signed and marked and I answered all the questions of he and his and family. He was brought to the operating room and underwent a general endotracheal anesthetic without problems and was appropriately monitored. A Rodrigues catheter was inserted to monitor fluid status while asleep. He was then carefully positioned prone onto the Kevon spinal frame with all bony prominences well-padded no pressure in the eyes ears and nose and the abdomen decompressed through the midportion of the Kevon spinal frame. SCDs were applied as well as warming blanket. The patient received 2 g of IV Ancef antibiotics after intubation but well within the 60-minute timeframe prior to incision. The back was then cleansed with Hibiclens scrub and alcohol and then sterilely prepped with DuraPrep iodine and alcohol prep and then sterilely draped in usual fashion. The surgical timeout was then called and completed. The C arm was brought into the field and the skin was marked over the L3-4 space and then an 8 cm incision was then made overlying this area carried down to the spinous processes and the lumbodorsal fascia. This was then opened in line with the skin and then a lateral x-ray was obtained with 2 Roney clamps over the L3 and L4 spinous process and this confirmed the level of the surgery. The remaining portion of the dissection was then carried out subperiosteally out to the level of the facet joints preserving the facet joint capsules and identifying the pars interarticularis of L3 and the interlaminar space at L3-L4. Self-retaining retractors were then placed. The interspinous ligament was removed as well as most of the spinous process of L3 using bone rongeur. Then the inferior lamina of L3 was thinned using a 3 mm matchstick bur and Midas Hugh preserving more than 4 mm bridge to the pars interarticularis and more than 50 of the facet joint was preserved. The bone was thinned down to the ligamentum flavum and the midline raphae was identified. Then the ligamentum flavum was dissected off of the leading edge of L4 and the superficial portion was removed and then the superior part of L4 was then also within with the matchstick bur. Then using headlight and 3.5 loupe magnification further decompression was obtained and the ligamentum flavum was removed exposing the underlying glistening white dura. The ligamentum flavum was very thickened. Lateral recess decompression was carried out to the right side to the lateral border of the thecal sac and the right L4 pedicle could be easily palpated. Then further ligament of flavum was then removed to the left lateral recess until the lateral border thecal sac could be identified as well as the pedicle on the left side at L4. Then using a [place] 4 dissector I carefully mobilized the thecal sac used bipolar cautery to take down any of the epidurals and then identified a large extruded and superiorly migrated disc herniation on the left side directly impinging upon the traversing nerve root and out to the foramen. A #11 blade was used to obliquely incise this and then using a small nerve hook several fragments of degenerative herniated disc was then fished out of this opening and also using the Phelps dissector to press down onto the disc out into the foramen causing further fragments to issue fourth and these were all removed until there was complete decompression. I was able to also palpate the pedicle of L3 on the left side and the neuroforamen was completely decompressed at this point. Hemostasis was further achieved with Floseal as well as bipolar cautery. The wound was then copiously irrigated the bone was waxed to achieve meticulous hemostasis and a Valsalva maneuver was accomplished and there was no evidence of any spinal fluid leakage. A medium Hemovac drain was placed deep and brought out on the left side superiorly through the fascia. A deep muscular stitch was placed to close up the space in between L4 and L3 and then the fascia was closed with a series of interrupted 0 Vicryl's and uopzaq-fy-nofle stitch and then a running #1 Vicryl was used to oversew the fascia and a double layer closure. Prior to fascial closure 30 cc of quarter percent Marcaine was then injected into the paraspinals tissue. The subcutaneous layer was closed with interrupted 2-0 Vicryl stitches. Prior to closure of the subcutaneous tissue a another 30 cc of quarter percent Marcaine was then injected into the subcutaneous tissue for further postoperative pain management. The skin was closed with a running 4-0 subcuticular stitch and then Dermabond tape and glue was then applied for final closure and then a sterile bandage was placed and the drain was secured and connected to suction. Final sponge needle and instrument count was all correct. Patient was then rolled supine extubated and then taken recovery room in stable and stationary condition. Rodrigues catheter was removed at the end of the surgery. Postop plan will be to keep the drain in overnight and probably remove it tomorrow. Consult the surgical care management team to assist with management of this patient's diabetes with a goal of keeping the blood sugars below 200 Patient can mobilize today with physical therapy and hopefully can discharge home tomorrow or perhaps the next day. No indication for further prophylactic IV antibiotics as the wound is clean and no implants were placed. Electronically Signed by: Davy Michaels MD, SELVIN, [facility] Orthopaedic Spine Surgery Department of Orthopaedic Surgery and Rehabilitation 05/20/2023 12:08 PM Notice: Parts of this note were created using [employer] speech recognition dictation software. All attempts were made to correct any errors at the time of dictation. However, there may be some errors present in the naturopathic doctor that were inadvertently overlooked during the dictation. [facility] 2023-05-20 10:03:04 BRIEF OPERATIVE NOTE Date of Surgery: 05/20/2023 Surgeon(s) and Role: * Hector Michaels MD - Primary * Min Velarde MD - Resident - Assisting Pre-Op Diagnosis: Lumbar radiculopathy [M54.16] Spinal stenosis of lumbar region with neurogenic claudication [M48.062] Lumbar disc herniation [M51.26] Post-Op Diagnosis Codes: * Lumbar radiculopathy [M54.16] * Spinal stenosis of lumbar region with neurogenic claudication [M48.062] * Lumbar disc herniation [M51.26] Procedures: Procedure(s) (LRB): LAMINECTOMY LUMBAR (Bilateral) CPT: 82941, Any Complications Encounters: None Estimated Blood Loss: Minimal Specimens Removed: * No specimens in log * * No implants in log * Patient's Condition: Stable Findings: Severe central stenosis and Left greater than right lateral recess stenosis. There is also large superiorly migrated extruded HNP impinging the Left lateral recess and into the L L34 neuroforamen. Any other important information: None Please see dictated operative report for additional detail. [facility] 2023-05-19 10:00:00 Images from the original note were not included. Venipuncture collection performed by clean technique on the left anticubitus. Total of 1 attempts were made. Slight pressure and a bandage/dressing were applied to the site(s). The patient experienced no complications. The following specimens were processed according to instructions and sent to [facility] laboratories per lab order on 05/19/2023 : LT BLUE SST RED LAV 1 PPT DK GREEN (LiHep) DK GREEN (SodH) MATSON DK BLUE (K2) DK BLUE (S) ACD Blood Culture NIPT/NTD [facility] 2023-05-19 10:00:00 Images from the original note were not included. Venipuncture collection performed by clean technique on the left anticubitus. Total of 1 attempts were made. Slight pressure and a bandage/dressing were applied to the site(s). The patient experienced no complications. The following specimens were processed according to instructions and sent to [facility] laboratories per lab order on 05/19/2023 : LT BLUE SST RED LAV 1 PPT DK GREEN (LiHep) DK GREEN (SodH) MATSON DK BLUE (K2) DK BLUE (S) ACD Blood Culture NIPT/NTD Banded on the left arm. Gave Blood to Deborah in Blood Bank. Stella Davis 05/19/2023 5:35 PM [facility] 2023-05-18 15:16:22 Lilly Zheng is a 62 year old male is needing his insulin to be sent to the correct pharm: insulin degludec (TRESIBA FLEXTOUCH U-100) 100 unit/mL (3 mL) [id number] [place] [facility] [address] [place] [address] He is out! Thanks. [facility] Lore Jones [facility] 2023-05-16 13:18:00 Regarding: switch prescription for Insulin [place], Disposable, (PEN NEEDLE) 31 gauge x 5/16" Ndle ----- Message from Bakari Zavala sent at 05/16/2023 1:17 PM [facility] ----- Lilly Zheng is a 62 year old male Pt had prescription put in for Insulin [place], Disposable, (PEN NEEDLE) 31 gauge x 5/16" Ndle. Was sent to wrong pharmacy and was requesting to switch [place]. Pt is completely out. [facility] [id number] - [place] [address] [facility] 2023-05-16 13:18:00 Reason for Disposition [1] Prescription prescribed recently is not at pharmacy AND [2] triager has access to patient's EMR AND [3] prescription is recorded in the EMR Protocols used: Medication Question [id number] Patient calls stating that he needs his insulin needles sent to a different pharmacy, the [facility] in [place], [place]. RN resends the prescription and notifies patient. 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 [facility] 2023-05-15 14:47:44 Addended by: KEVIN MAYES MD on: 05/15/2023 02:47 PM Modules accepted: Orders [facility] 2023-05-14 15:10:42 Requested Prescriptions Pending Prescriptions Disp Refills PIOGLITAZONE 30 mg tablet [Pharmacy Med Name: PIOGLITAZONE HCL 30 MG TABLET] 30 tablet Sig: TAKE ONE TABLET BY MOUTH EVERY MORNING RODO:09/30/2022 No appt scheduled pt needs F/U appt for refills. Angela José MA 05/14/2023 3:14 PM [facility] 2023-05-14 13:05:22 Patient advised to make appt with Dr. Mayes, however he did not make appt when he was here in clinic [facility] 2023-05-14 12:13:58 Patient asking to get back on Trulicity 5mg due to Mounjaro no longer being covered. Will have to route to provider for approval. Sending refill of Tresiba to pharmacy. Hong LVN [facility] 2023-05-13 11:54:54 Pt requesting Trulicity 5mg since his mounjaro is no longer covered and his OOP/DED started over. Also he is completely out of Treseba pen [facility] 2023-05-07 12:00:00 Images from the original note were not included. Venipuncture collection performed by clean technique on the left anticubitus. Total of 1 attempts were made. Slight pressure and a bandage/dressing were applied to the site(s). The patient experienced no complications. The following specimens were processed according to instructions and sent to [facility] laboratories per lab order on 05/07/2023 : LT BLUE 1 SST 1 RED LAV 1 PPT DK GREEN (LiHep) DK GREEN (SodH) MATSON DK BLUE (K2) DK BLUE (S) ACD Blood Culture NIPT/NTD Patient has been identified by and name and was provided with cup, antiseptic towelette, and clean catch instructions. 2 urine specimen(s) sent. Unpreserved 1 Urine Culture 1 Aptima tube Other urine [facility] 2023-05-01 17:17:[address] Michaels. Per Dr. Michaels, he spoke with Dr. Perdomo, and Dr. Perdomo will complete pre op labs and clearance. EKG [facility] [employer] Lauren Cisneros RN [facility] 2023-05-01 14:19:34 Lilly Zheng is a 62 year old male. Patient PCP is calling to figure out if Dr. Coleman would like for the patient to have pre-op labs completed prior to his surgery. Please call patient at [phone] (home) if a pre-op appointment is needed, and if labs are needing to be completed prior to his surgery. Thank you! [facility] Neeta Jimenes [facility] 2023-04-28 13:08:10 RODO 09/30/22 NOV not scheduled. Patient needs to schedule a follow up appt. [employer] Romina Hong LVN [facility] 2023-04-28 08:57:06 Images from the original note were not included. [facility] 2023-04-24 14:02:50 RODO:09/30/2022 NOV:none Last note; Current Diabetes Medications: Tresiba 24 units daily Mounjaro 5 mg weekly (being off for months ) Glipizide 10 mg bid Pioglitazone 30 mg daily Metofmrin ER 500 mg bid Follow Up: 4-6 months --Restart Mounjaro 5 mg weekly Patient needs apt. Gave 1 months worth [employer] Kimberlyn Pulliam RN [facility] 2022-12-10 12:18:18 Written/verbal d/c instructions, out of er no distress [facility] 2022-12-10 09:36:48 Lilly Zheng is a 62 year old malec /o left lat rib pain s/p fall 5 days ago, states was carrying a chair under arm and tripped and landed on chair, no bruising noted, tender on palp to left lat ribs, resp even u/l, Paty Tang RN [facility] 2022-11-13 10:06:03 Problem: Discharge Planning Goal: Adequate for discharge Outcome: Adequate for discharge Problem: Cardiac Output - Decreased Goal: Absence of signs and symptoms of decreased cardiac output Outcome: Adequate for discharge Problem: Falls, Risk of Goal: Absence of falls Outcome: Adequate for discharge Problem: Pain Goal: Control of pain at or below patient's documented comfort goal Outcome: Adequate for discharge Goal: Reduction in pain sensation Outcome: Adequate for discharge Problem: Skin integrity Impaired (Risk or Actual) Goal: Prevention of new skin breakdown Outcome: Adequate for discharge Problem: Tissue Perfusion, Cardiopulmonary - Altered Goal: Circulatory function within specified parameters Outcome: Adequate for discharge Problem: Venous Thromboembolism, (actual or risk of) Goal: Absence of venous thromboembolism (Risk) Outcome: Adequate for discharge Nata Sommer RN [facility] 2022-11-13 02:49:37 Problem: Discharge Planning Goal: Adequate for discharge Outcome: Progressing as expected Problem: Cardiac Output - Decreased Goal: Absence of signs and symptoms of decreased cardiac output Outcome: Progressing as expected Problem: Falls, Risk of Goal: Absence of falls Outcome: Progressing as expected Problem: Pain Goal: Control of pain at or below patient's documented comfort goal Outcome: Progressing as expected Goal: Reduction in pain sensation Outcome: Progressing as expected Problem: Skin integrity Impaired (Risk or Actual) Goal: Prevention of new skin breakdown Outcome: Progressing as expected Problem: Tissue Perfusion, Cardiopulmonary - Altered Goal: Circulatory function within specified parameters Outcome: Progressing as expected Problem: Venous Thromboembolism, (actual or risk of) Goal: Absence of venous thromboembolism (Risk) Outcome: Progressing as expected Navjot Gates RN [facility] 2022-11-12 13:00:00 Pt c/o pain to hip and wants an MRI. Pt states that he is uncomfortable in the bed. Pt states that he did not fall [employer] and that the pain is chronic. Pt states "I want something done about it" I offered to get him a recliner so that he could get out of bed. Pt was agreeable but when the recliner was brought into the room he refused. Dr Lerma notified of pt concerns and request for MRI. Ronel Stern RN [facility] 2022-11-12 10:39:53 Problem: Discharge Planning Goal: Adequate for discharge Outcome: Progressing as expected Problem: Cardiac Output - Decreased Goal: Absence of signs and symptoms of decreased cardiac output Outcome: Progressing as expected Problem: Falls, Risk of Goal: Absence of falls Outcome: Progressing as expected Problem: Pain Goal: Control of pain at or below patient's documented comfort goal Outcome: Progressing as expected Goal: Reduction in pain sensation Outcome: Progressing as expected Problem: Skin integrity Impaired (Risk or Actual) Goal: Prevention of new skin breakdown Outcome: Progressing as expected Problem: Tissue Perfusion, Cardiopulmonary - Altered Goal: Circulatory function within specified parameters Outcome: Progressing as expected Problem: Venous Thromboembolism, (actual or risk of) Goal: Absence of venous thromboembolism (Risk) Outcome: Progressing as expected T [facility] 2022-11-12 01:43:23 Problem: Discharge Planning Goal: Adequate for discharge Outcome: Progressing as expected Problem: Cardiac Output - Decreased Goal: Absence of signs and symptoms of decreased cardiac output Outcome: Progressing as expected Problem: Skin integrity Impaired (Risk or Actual) Goal: Prevention of new skin breakdown Outcome: Progressing as expected T [facility] 2022-11-12 00:35:18 Nurse Report Report given to SHELIA White. Chief complaint, assessment findings, infusion verify and orders reviewed. Plan of care discussed. Patient/family members verbalized understanding. Josefina Tsang RN T Josefina Tsang RN [facility] 2022-11-12 00:35:00 Patient admitted to 2101 for diagnosis of chest pain, palpitations, elevated lipase, cocaine abuse. Patient agrees to admission, discussed plan of care with patient and family. Patient is awake, alert, oriented, resp reg unlabored, color appropriate for race, PIV intact No adverse reaction to medications administered while in ED. Belongings with patient to unit. [facility] 2022-11-11 20:56:16 Sudden onset of feeling dehydrated, feeling shaky and heart "feels like it was pounding out of my chest". Episode lasted about 30 min. Pt stated he drank "a lot" of water and took 1/2 of a xanax and felt a little better. Stated he drank a beer earlier. Pt ambulatory to room from [facility] with steady gait. Jacinta Carmona RN [facility] 2022-11-11 20:46:00 EMERGENCY DEPARTMENT ENCOUNTER [facility] Patient Name: Lilly Zheng Date of : 1960 62 year old Exam [facility] Primary Care Physician: Samson Perdomo Pre- Hospital Patient Escorted by: Family [5] Mode of Arrival: Personal means [1] EMS Treatment Prior to ED Arrival: ED Events Date/Time Event User Comments 11/11/222051 Medical Screening Begins SOCORRO WILKINSON MD -- 11/11/222051 First Provider Evaluation SOCORRO WILKINSON MD -- Chief Complaint Chief Complaint Patient presents with Shortness of Breath Body Aches Palpitations ED Triage Notes Jacinta Carmona RN 11/11/2022 20:58 Sudden onset of feeling dehydrated, feeling shaky and heart "feels like it was pounding out of my chest". Episode lasted about 30 min. Pt stated he drank "a lot" of water and took 1/2 of a xanax and felt a little better. Stated he drank a beer earlier. Pt ambulatory to room from lobby with steady gait. HPI The patient is a 62-year-old gentleman who presents for palpitations. He states he has a history of anxiety. He states he was driving and felt as though he had difficulty swallowing and was about to pass out. He denies any chest pain but admits to shortness of breath and palpitations. He states that he had a shaking episode as well. He went home and took a Xanax and then now he presents to the ED for evaluation with his symptoms resolved. Palpitations Palpitations quality: Fast Onset quality: Sudden Duration: 30 minutes Chronicity: New Relieved by: Nothing Worsened by: Nothing Associated symptoms: no chest pain, no cough, no dizziness, no nausea, no shortness of breath and no vomiting Past Medical History / Immunizations Past Medical History: Diagnosis Date Diabetes HTN (hypertension) Past Surgical History Past Surgical History: Procedure Laterality Date COLONOSCOPY N/A 11/04/2019 Surgeon: Essie Guerra MD; Location: [facility] OR [facility] ESOPHAGOGASTRODUODENOSCOPY N/A 11/04/2019 Surgeon: Essie Guerra MD; Location: [facility] OR [facility] LASIK (LASER IN SITU KERATOMILEUSIS) Allergies No Known Allergies Social History Tobacco Use Former; Cigarettes: Quit 11/26/1987; 0.25 packs/day for 30.00 years Smokeless Tobacco: Never used smokeless tobacco. Comments: Smokes Cigars on occasion Alcohol Use No. Drug Use No. Review of Systems Review of Systems Constitutional: Negative. Negative for chills, fatigue, fever and unexpected weight change. HENT: Negative. Eyes: Negative. Negative for discharge and itching. Respiratory: Negative. Negative for cough, chest tightness, shortness of breath and wheezing. Cardiovascular: Positive for palpitations. Negative for chest pain. Gastrointestinal: Negative. Negative for abdominal distention, abdominal pain, nausea and vomiting. Genitourinary: Negative. Negative for dysuria, urgency, frequency and flank pain. Musculoskeletal: Negative. Skin: Negative. Negative for color change, pallor and wound. Neurological: Negative. Negative for dizziness, syncope, light-headedness and headaches. Psychiatric/Behavioral: Negative. Negative for agitation and behavioral problems. All other systems reviewed and are negative. Endocrine: Endocrine negative Physical Exam ED Triage Vitals Weight Actual or estimated Height BP Pulse Resp Temp Temp src SpO2 Measured on Physical Exam Vitals reviewed. Constitutional: Appearance: He is well-developed. HENT: Head: Normocephalic and atraumatic. Nose: Nose normal. Eyes: Conjunctiva/sclera: Conjunctivae normal. Neck: Trachea: No tracheal deviation. Cardiovascular: Rate and Rhythm: Normal rate and regular rhythm. Heart sounds: Normal heart sounds. No murmur heard. No friction rub. Pulmonary: Effort: Pulmonary effort is normal. No respiratory distress. Breath sounds: Normal breath sounds. No stridor. No wheezing or rales. Abdominal: General: Bowel sounds are normal. There is no distension. Palpations: Abdomen is soft. Tenderness: There is no abdominal tenderness. There is no guarding or rebound. Musculoskeletal: General: Normal range of motion. Cervical back: Normal range of motion and neck supple. Skin: General: Skin is warm and dry. Neurological: Mental Status: He is alert and oriented to person, place, and time. Cranial Nerves: No cranial nerve deficit. Sensory: No sensory deficit. Psychiatric: Behavior: Behavior normal. Labs Lab Results - No data to display Imaging No orders to display Orders and Treatments Orders Placed This Encounter Procedures XR CHEST 1 VW CBC WITH DIFF ACTIVATED PARTIAL THRMPLAS AMY PROTHROMBIN TIME / INR COMP. METABOLIC PANEL (54767) LIPASE TROPONIN I N-TERMINAL PRO-BNP URINE DRUG (IMMUNOASSAY) - COMPREHENSIVE DRUG SCREEN ETHANOL MAGNESIUM No orders of the defined types were placed in this encounter. Procedures EKG Time 2053 Rate 100 Normal sinus [place] normal Intervals normal Notes & MDM Patient was evaluated for an emergency medical condition related to Shortness of Breath, Body Aches, and Palpitations DDX Anxiety Dehydration ACS History and/or review of systems is limited by:History limited: None. Diagnosis/Impression as of 11/11/22 2326 Chest pain, unspecified type Palpitations Elevated lipase Cocaine abuse Medical Decision Making Problems Addressed: Chest pain, unspecified type: acute illness or injury Cocaine abuse: chronic illness or injury Elevated lipase: acute illness or injury Palpitations: acute illness or injury Amount and/or Complexity of Data Reviewed Labs: ordered. Decision-making details documented in ED Course. Radiology: ordered and independent interpretation performed. Decision-making details documented in ED Course. ECG/medicine tests: ordered and independent interpretation performed. Decision-making details documented in ED Course. Risk Prescription drug management. Parenteral controlled substances. Decision regarding hospitalization. Limitations to patient care and compliance: none. Assessment/Summary: The patient is a 62-year-old gentleman who presents for palpitation and anxiety. Laboratory evaluation today demonstrates that he has cocaine in his urine. Troponin is negative. EKG does not demonstrate any acute ischemia or ectopy. Of note, his lipase is elevated however he does not have any abdominal pain or vomiting. CT of the abdomen pelvis does not demonstrate signs of acute pancreatitis. The patient will be admitted for cardiac rule out and further work-up. The patient was admitted in stable condition. History, physical exam findings, results of visit, differential diagnosis, medication regimens and plan of future care have been considered. Additional MDM may be found in the ED course. Differential diagnosis considered and final disposition made based on information gathered during evaluation and may not be completely ruled out or specifically listed. Vital signs were rechecked before final disposition. Diagnosis Final diagnoses: [R07.9] Chest pain, unspecified type (Primary) Disposition & Follow Up ED Disposition None Patient's Medications START taking these medications No [...] Use as directed with testosterone injection once [id number] TAMSULOSIN 0.4 MG 24 HR CAPSULE Take 1 capsule by mouth at bedtime. START taking Modified Medications as Prescribed No medications on file STOP taking these medications No medications on file Socorro Wilkinson Jr., MD Clinical [employer] [facility] Emergency Department [employer] is used frequently and may produce errors. Promptly contact for obvious discrepancies. Socorro Wilkinson MD 11/12/22 0156 T [facility] 2019-11-03 15:43:20 Patient informed of results via text message dated 11/03/19 T Katya Deal [facility]
[2024-12-01] MEDS ORDERED: ONDANSETRON 4 MG/2 ML VIAL ONE (15:28)
[2024-12-01] MEDS ORDERED: HYDROMORPHONE HCL 1 MG/ML INJ ONE (15:28)
--- NOTE | 2024-12-01 15:38 | RAD REPORT ---
EXAM: CT brain without contrast HISTORY: TRAUMA COMPARISON: 05/13/2024 TECHNIQUE: Multiple contiguous axial images were obtained and a CT of the brain without contrast. Sag ittal and coronal reformats were performed. FINDINGS: No evidence of hydrocephalus, intracranial hemorrhage, or extra-axial fluid collection. Mild brain atrophy with mild periventricular and deep white matter chronic microvascular ischemic ch anges present. Questionable focus of left pontine hypoattenuation, may also relate to chronic microvascular ischemic changes or beam hardening artifact The calvarium is intact. The visualized paranasal sinuses are predominantly clear. Patchy opacificati on of the right posterior mastoid air cells IMPRESSION: No evidence of acute intracranial abnormality. Nonspecific white matter signal abnormalities, as well as a questionable left pontine focus of hypoat tenuation, may relate to chronic microvascular ischemic changes or beam hardening artifact. EXAM: CT of the cervical spine without contrast HISTORY: TRAUMA COMPARISON: None TECHNIQUE: Multiple contiguous axial images were obtained in a CT of the cervical spine without contr ast. Sagittal and coronal reformats were performed. FINDINGS: The vertebral bodies demonstrate normal height and alignment. No evidence of acute fracture or subluxation.. Mild degenerative changes most pronounced at C6-7. No prevertebral soft tissue swelling is seen. The posterior facets are well aligned. Normal alignment of the skull base with the cervical spine is seen. The lung apices are unremarkable. IMPRESSION: No evidence of acute osseous abnormality of the cervical spine.
--- NOTE | 2024-12-01 16:21 | EDPHYS ---
Physician Documentation [facility] Name: Geovanny Kenney Age: 64 yrs Sex: Male : 1960 Arrival Date: 12/01/2024 Time: 14:41 Bed 20 Private MD: ED Physician Lexy Rodriguez HPI: 12/01 15:01 This 64 yrs old Male presents to ER via EMS with complaints of sciatica pain, sp3 right facial pain. 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 Patient states he went to a local clinic. They did not do any imaging. He sees Dr. Hayes who had ordered a CT scan of the right ear due to the hearing loss scheduled for tomorrow. But he has not had any global cerebral imaging or neck imaging. Right sided sciatica is known and injury did not involve that. Stable vital signs for EMS. ROS otherwise negative.. Historical: - Allergies: 14:44 No Known Allergies; rg5 - PMHx: 14:44 Diabetes - NIDDM; High Cholesterol; Hypertension; neuropathy (Hypertension); rg5 - Immunization history:: Adult Immunizations unknown. - Infectious Disease History:: Denies. - Social history:: Smoking status: Patient reports the use of cigarette tobacco products, denies chronic smoking, but will smoke occasionally. ROS: 15:05 Constitutional: Negative for fever, chills, and weight loss, Eyes: Negative for injury, sp3 pain, redness, and discharge, Neck: Negative for injury, pain, and swelling, Cardiovascular: Negative for chest pain, palpitations, and edema, Respiratory: Negative for shortness of breath, cough, wheezing, and pleuritic chest pain, Abdomen/GI: Negative for abdominal pain, nausea, vomiting, diarrhea, and constipation, MS/Extremity: Negative for injury and deformity, Skin: Negative for injury, rash, and discoloration, Psych: Negative for depression, anxiety, suicide ideation, homicidal ideation, and hallucinations, Allergy/Immunology: Negative for hives, rash, and allergies, Endocrine: Negative for neck swelling, polydipsia, polyuria, polyphagia, and marked weight changes, 15:05 All other systems are negative, Exam: 15:14 Constitutional: This is a well developed, well nourished patient who is awake, alert, sp3 and in no acute distress. Head/Face: Normocephalic, atraumatic. Eyes: Pupils equal round and reactive to light, extra-ocular motions intact. Lids and lashes normal. Conjunctiva and sclera are non-icteric and not injected. Cornea within normal limits. Periorbital areas with no swelling, redness, or edema. ENT: Nares patent. No nasal discharge, no septal abnormalities noted. External auditory canals are clear. Oropharynx with no redness, swelling, or masses, exudates, or evidence of obstruction, uvula midline. Mucous membranes moist. Neck: Trachea midline, no thyromegaly or masses palpated, and no cervical lymphadenopathy. Supple, full range of motion without nuchal rigidity, or vertebral point tenderness. No Meningismus. Chest/axilla: Normal chest wall appearance and motion. Nontender with no deformity. No lesions are appreciated. Cardiovascular: Regular rate and rhythm with a normal S1 and S2. No gallops, murmurs, or rubs. Normal PMI, no JVD. No pulse deficits. Respiratory: Lungs have equal breath sounds bilaterally, clear to auscultation and percussion. No rales, rhonchi or wheezes noted. No increased work of breathing, no retractions or nasal flaring. Abdomen/GI: Soft, non-tender, with normal bowel sounds. No distension or tympany. No guarding or rebound. No evidence of tenderness throughout. Back: No spinal tenderness. No costovertebral tenderness. Full range of motion. Neuro: Awake and alert, GCS 15, oriented to person, place, time, and situation. Cranial nerves II-XII grossly intact. Motor strength 5/5 in all extremities. Sensory grossly intact. Cerebellar exam normal. Normal gait. Psych: Awake, alert, with orientation to person, place and time. Behavior, mood, and affect are within normal limits. 15:14 Musculoskeletal/extremity: Positive pain on straight leg raise at 30 degrees on the right lower extremity. Distal neurovascular exam normal on all extremities.. 15:14 Neuro: Patient has subjective numbness in right upper extremity and right lower extremity. The right lower extremity numbness comes and goes for months. The right upper extremity numbness has been there since the fall., Vital Signs: 14:44 BP 165 / 65; Pulse 97; Resp 18; Temp 98.2; Pulse Ox 98% ; Pain 9/10; rg5 15:49 BP 141 / 70; Pulse 86; Resp 17; Pulse Ox 96% ; rg5 14:44 Pain Scale: Adult rg5 MDM: 14:52 Medical Screening Exam initiated sp3 15:15 Data reviewed: vital signs, nurses notes, radiologic studies. ED course: 64-year-old sp3 male with paresthesias and facial head injury 3 weeks ago that has not yet been evaluated with imaging. Differential diagnosis includes facial injury, fracture, cervical disc disease, lumbar disc disease. Will obtain CT scan of the head and C-spine and treat with pain medication. Outpatient MRI as needed. Follow-up with Dr. Gómez as long as no acute emergency.. 16:20 ED course: No traumatic injuries found. We will safely discharge patient home on sp3 tramadol. Pain is now improved after intervention.. 12/01 14:53 Order name: CT Head C Spine; Complete Time: 16:10 sp3 12/01 14:53 Order name: IV Saline Lock; Complete Time: 15:31 sp3 12/01 14:53 Order name: NPO; Complete Time: 15:31 sp3 Administered Medications: 15:31 Drug: HYDROmorphone IVP 1 mg IVP once Route: IVP; Site: left antecubital; rg5 16:00 Follow up: Response: No adverse reaction; Pain is decreased rg5 15:31 Drug: Ondansetron IVP 4 mg IVP once; over 2 minutes Route: IVP; Site: left antecubital; rg5 16:00 Follow up: Response: No adverse reaction; Pain is decreased rg5 Disposition Summary: 12/01/24 16:20 Discharge Ordered Notes: Location: Home sp3 Condition: Stable sp3 Diagnosis - Right lower extremity sciatica, facial pain secondary to traumatic fall sp3 Followup: sp3 - With: Private Physician - When: Upon discharge from the Emergency Department - Reason: Continuance of care Discharge Instructions: - Discharge Summary Sheet sp3 - Facial or Scalp Contusion sp3 - Sciatica sp3 Forms: - Medication Reconciliation Form sp3 - Antibiotic Education sp3 - Prescription Opioid Use sp3 - Patient Portal Instructions sp3 - Leadership Thank You Letter sp3 Prescriptions: - Tramadol 50 mg Oral Tablet - take 1 tablet ORAL route every 8 hours as needed; 12 tablet; Refills: 0, sp3 Product Selection Permitted Signatures: Dispatcher [employer] Lexy Anna MD MD sp3 Bonifacio Velázquez, RN RN rg5
--- NOTE | 2024-12-01 16:21 | ER ---
Nurse's Notes [facility] Name: Geovanny Kenney Age: 64 yrs Sex: Male : 1960 Arrival Date: 12/01/2024 Time: 14:41 Bed 20 Private MD: Diagnosis: Right lower extremity sciatica, facial pain secondary to traumatic fall Presentation: 12/01 14:44 Chief complaint: EMS states: patient has worsening pain in the right hip that radiates rg5 down to his leg, feels numbness on the right leg and arms. 14:44 Coronavirus screen: Client denies travel out of the [place] in the last 14 days. Ebola rg5 Screen: Patient negative for fever greater than or equal to 101.5 degrees Fahrenheit, and additional compatible Ebola Virus Disease symptoms Patient denies exposure to infectious person. Patient denies travel to an Ebola-affected area in the 21 days before illness onset. Initial Sepsis Screen: Does the patient meet any 2 criteria? No. Patient's initial sepsis screen is negative. Does the patient have a suspected source of infection? No. Patient's initial sepsis screen is negative. Risk Assessment: Do you want to hurt yourself or someone else? Patient reports no desire to harm self or others. Onset of symptoms. Care prior to arrival: IV initiated. 20 GA, in the left antecubital area, Glucose check: 253. 14:44 Method Of Arrival: EMS: [facility] rg5 14:44 Acuity: VERA 3 rg5 Triage Assessment: 14:44 General: Appears in no apparent distress. comfortable, Behavior is calm, cooperative, rg5 appropriate for age. Pain: Complains of pain in right leg Quality of pain is described as aching. EENT: No signs and/or symptoms were reported regarding the EENT system. Neuro: Level of Consciousness is awake, alert, obeys commands, Oriented to person, place, time, situation, Reports numbness in right arm and right leg. Cardiovascular: Patient's skin is warm and dry. Respiratory: Airway is patent Trachea midline Respiratory effort is even, unlabored, Breath sounds are clear. 14:44 GI: Abdomen is round obese. rg5 14:44 : No signs and/or symptoms were reported regarding the genitourinary system. Derm: rg5 Skin is intact, Skin is dry, Skin is normal. Musculoskeletal: Circulation, motion, and sensation intact. Range of motion: intact in all extremities, Reports numbness in right arm and right leg pain in right leg. Historical: - Allergies: 14:44 No Known Allergies; rg5 - PMHx: 14:44 Diabetes - NIDDM; High Cholesterol; Hypertension; neuropathy (Hypertension); rg5 - Immunization history:: Adult Immunizations unknown. - Infectious Disease History:: Denies. - Social history:: Smoking status: Patient reports the use of cigarette tobacco products, denies chronic smoking, but will smoke occasionally. Screenin:40 [facility] ED Fall Risk Assessment (Adult) History of falling in the last 3 months, rg5 including since admission Yes- single mechanical fall (1 pt) Confusion or Disorientation No (0 pts) Intoxicated or Sedated No (0 pts) Impaired Gait Yes (1 pt) Mobility Assist Device Used Yes (1 pt) Altered Elimination Yes (1 pt) Score/Fall Risk Level 3 or more points = High Risk Oriented to surroundings, Maintained a safe environment, Hourly rounding (assess needs \T\ fall precautionary measures) done. Abuse screen: Denies threats or abuse. Tuberculosis screening: No symptoms or risk factors identified. 14:40 Nutritional screening: On. rg5 Assessment: 15:30 Reassessment: Patient and/or family updated on plan of care and expected duration. Pain rg5 level reassessed. Patient is alert, oriented x 3, equal unlabored respirations, skin warm/dry/pink. Patient states symptoms have improved. 16:00 Reassessment: Patient and/or family updated on plan of care and expected duration. Pain rg5 level reassessed. Patient is alert, oriented x 3, equal unlabored respirations, skin warm/dry/pink. Patient states symptoms have improved. Vital Signs: 14:44 BP 165 / 65; Pulse 97; Resp 18; Temp 98.2; Pulse Ox 98% ; Pain 9/10; rg5 15:49 BP 141 / 70; Pulse 86; Resp 17; Pulse Ox 96% ; rg5 14:44 Pain Scale: Adult rg5 ED Course: 14:44 Patient arrived in ED. sp3 14:44 Lexy Rodriguez MD is Attending Physician. sp3 14:44 Patient has correct armband on for positive identification. rg5 14:44 Door closed. Noise minimized. Warm blanket given. rg5 14:44 No provider procedures requiring assistance completed. Maintain EMS IV. Dressing rg5 intact. Good blood return noted. Site clean \T\ dry. Gauge \T\ site: 20g Left AC. Flushed with 10 mL NS. 14:49 Bonifacio Velázquez, RN is Primary Nurse. rg5 14:55 Triage completed. rg5 15:09 CT Head C Spine In Process Unspecified. EDMS 16:00 IV discontinued, bleeding controlled, No redness/swelling at site. Pressure dressing rg5 applied. Administered Medications: 15:31 Drug: HYDROmorphone IVP 1 mg IVP once Route: IVP; Site: left antecubital; rg5 16:00 Follow up: Response: No adverse reaction; Pain is decreased rg5 15:31 Drug: Ondansetron IVP 4 mg IVP once; over 2 minutes Route: IVP; Site: left antecubital; rg5 16:00 Follow up: Response: No adverse reaction; Pain is decreased rg5 Medication: 14:40 VIS not applicable for this client. rg5 Outcome: 16:00 Discharged to home via wheelchair, rg5 16:00 Condition: stable 16:00 Instructed on discharge instructions, 16:20 Discharge ordered by MD. [email or web address] 16:51 Patient left the ED. rg5 Signatures: Dispatcher [employer] Lexy Anna MD MD sp3 Bonifacio Velázquez, RN RN rg5
[2024-12-01 16:55] VITALS: TEMP 98.2
[2024-12-01 16:56] VITALS: BP 141/70; O2SAT 96
== END 2024-12-01 16:51 | disposition home or self-care (01) ==
LOC: ER 14:41
DX: M54.31 Sciatica, right side (principal); R51.9 Headache, unspecified; W18.30XA Fall on same level, unspecified, initial encounter
CPT/HCPCS: 70450; 72125; 96374; 96375; 99284; J1171; J2405